=== PATIENT | female | born 1985 | race Caucasian/White ===

== ENCOUNTER 2019-02-03 11:03 | Emergency (ER) | payer MEDICAID, SELFPAY ==
[2019-02-03 11:04] VITALS: BP 102/57; PULSE 82; RESP 16; TEMP 36.8; O2SAT 96; BMI 30.2
--- NOTE | 2019-02-03 11:27 | RAD_ITS ---
STUDY: X-RAY - LEFT FOOT CLINICAL: Female, 33 years old. Pain TECHNIQUE: 3 view(s) of the foot. COMPARISON: None. FINDINGS: There is no evidence of fracture or dislocation. There are no significant degenerative changes. There are no radiodense foreign bodies. RAD/Foot min 3 Views IMPRESSION: No fracture or dislocation. Electronically Signed: Ian Brooks, at 11:43 EDT Tel , Service support ,
--- NOTE | 2019-02-03 11:27 | RAD_ITS ---
STUDY: X-RAY - LEFT ANKLE REASON FOR EXAM: Female, 33 years old. Pain TECHNIQUE: 3 view(s) of the ankle. COMPARISON: None. FINDINGS: There is no evidence of fracture or dislocation. There are no significant degenerative changes. There are no radiodense foreign bodies. RAD/Ankle min 3 Views IMPRESSION: No fracture or dislocation. Electronically Signed: Ian Brooks, at 11:44 EDT Tel , Service support ,
[2019-02-03] MEDS: Naproxen 500 MG Tablet PO (11:59)
--- NOTE | 2019-02-03 12:01 | ED.DCSUM_ITS ---
- ER Visit Summary Date of Service: 02/03/19 Chief Complaint: Left foot and ankle injury History of Present Illness: The patient is a 33 F who tripped and fell yesterday while running. She complains of pain to her left fifth toe and lateral portion of her left ankle. She has not taken anything for pain. Physical Examination: Vital signs unremarkable. Patient sitting upright in bed no acute distress. Left lower extremity examination was mild tenderness on the lateral malleolus of the left ankle. There is mild erythema and edema to the left fifth toe. There is a small scabbed abrasion noted. No sign of infection. She has strong distal pulses. Test Results: Left foot and ankle x-rays reveal no fracture or dislocation. Emergency Department Course and Treatment: Patient is given naproxen for pain and Agapito wrap is provided. Treatment Plan: [] Disposition: Discharge Impression: Left foot and ankle sprain This note was generated with [employer] dictation software. It may contain incorrect words, spelling, and punctuation that were not noted in review of the chart prior to signing ED Disposition - Plan for ED Patient: Disposition: Home or Assisted Living Instructions: ED Sprain Ankle W X Ray, ED Sprain Foot Prescriptions: Naproxen [Naprosyn] 500 mg PO BID PRN PRN #20 tablet PRN Reason: Pain Referrals: Myra Trevino MD [STAFF PHYSICIAN] - As Needed
== END 2019-02-03 12:06 | disposition home or self-care (01) ==
PROVIDERS: Emergency Provider Emergency Medicine
DX: S93.402A Sprain of unspecified ligament of left ankle, initial encounter (principal); S93.602A Unspecified sprain of left foot, initial encounter; W01.0XXA Fall on same level from slipping, tripping and stumbling without subsequent striking against object, initial encounter; Y93.02 Activity, running; Z72.0 Tobacco use; Z87.442 Personal history of urinary calculi
CPT/HCPCS: 73610; 73630; 99283

== ENCOUNTER 2019-03-07 19:59 | Emergency (ER) | payer MEDICAID, SELFPAY ==
[2019-03-07 20:02] VITALS: BP 100/59; PULSE 86; RESP 17; TEMP 36.3; O2SAT 98; BMI 37.7
[2019-03-07 20:59] LABS: Mucous, Urine 0 SEEN /hpf (<or=2+)
--- NOTE | 2019-03-07 21:02 | CT_ITS ---
STUDY: CT ABDOMEN AND PELVIS WITHOUT CONTRAST REASON FOR EXAM: Female, 34 years old. Right flank pain. RADIATION DOSAGE (If Supplied By Facility): CTDIvol = ( 9.49 ) mGy, DLP = ( 438.77 ) mGycm TECHNIQUE: Transaxial images were obtained from the dome of the diaphragm to the symphysis pubis without oral contrast, and without intravenous contrast. Sagittal and coronal images were reconstructed. Individualized dose optimization techniques were used for this CT. COMPARISON: None. FINDINGS: The visualized lung bases are unremarkable. The visualized portions of the heart are within normal limits. Normal liver. The gallbladder is contracted. Normal spleen. Normal pancreas. Normal bilateral adrenal glands. Normal right kidney. There is a punctate nonobstructing left lip of the left kidney measuring 1 to 2 mm. Normal visualized stomach. Normal small intestine. Normal colon. There is non-visualization of the appendix. Normal abdominal aorta. Normal inferior vena cava. Normal retroperitoneum. Normal urinary bladder. Normal abdominal wall. Normal osseous structures. CT/Abdomen/Pelvis without Cont IMPRESSION: No evidence of acute intra-abdominal process or focal inflammation. Left nonobstructive renal punctate nephroliths with otherwise no evidence of ureteral stone or hydronephrosis. Electronically Signed: Juancho Malone DO at 22:30 EDT , Service support ,
[2019-03-07 21:05] LABS: Color, Urine Yellow (Yellow); Glucose, Dipstick Normal (Normal); Ketone-Dipstick Negative (Negative); Leukocyte Esterase-Dipstick Negative /ul (Negative); Nitrite-Dipstick Negative (Negative); Occult Blood-Urine 150 /ul (Negative); Protein-Dipstick Negative (Negative); Urine Bilirubin Dipstick Negative (Negative); Urine Clarity Sl. Cloudy (Clear); Urine Urobilinogen Normal (Normal)
[2019-03-07 21:13] LABS: Amorphous Sediment 1+; Bacteria 2+ /hpf (None Seen); Red Blood Cells-Urine 0-5 SEEN /hpf (0-5); Squamous Epithelial Cells - UA 0-5 SEEN /hpf (5-10); White Blood Cells 0-5 SEEN /hpf (0-5)
[2019-03-07] MEDS: 0.9% Normal Saline 1,000 ML 250 ML IV (21:25)
[2019-03-07] MEDS: Ondansetron 4 MG/2 ML Vial IV (21:29)
[2019-03-07] MEDS: Ketorolac 15 MG/ML Vial IV (21:33)
[2019-03-07 21:45] LABS: Anion Gap 6 (5-15); BUN 13 mg/dL (7-18); BUN/Creat Ratio 19.8 RATIO (10-20); Calcium,Total 8.3 mg/dL (8.5-10.1); Chloride 107 mmol/L (98-107); Creatinine, Serum 0.66 mg/dL (0.55-1.02); EST Glomerular Filtration Rate 111 mL/min (>60); Est Glom Filt Rate - Afr Amer 134 mL/min (>60); Estimated Creatinine Clearance 135.89 ml/min; Glucose 94 mg/dL (74-106); Potassium 3.6 mmol/L (3.5-5.1); Sodium Level 140 mmol/L (136-145)
--- NOTE | 2019-03-07 22:19 | ED.VIS.GEN ---
History of Present Illness Chief Complaint: Flank Pain Informant: Patient Onset: Days - Onset Tuesday Context: Sudden Onset Timing: Continuous, Waxes and wanes Quality: Cramping labor like Location: Right flank radiating to right groin Current Severity: Moderate Maximum Severity: Severe Worsened by: Nothing Relieved by: Nothing Associated Symptoms: Urgency, hematuria and nausea Narrative: Patient is a 34-year-old woman status post hysterectomy who presents with right flank pain that radiates to the right groin she reports urgency and hematuria. She denies dysuria. She does report nausea. She has remote history of ureterolithiasis. She denies fever, chills or night sweats. There is no history of trauma. Prior similar symptoms: Yes - Ureterolithiasis 2014 Recent Illness/Hospitalization: No - Past Medical History (1) History of kidney stones Status: Acute Past Medical History - Allergies and Home Meds Allergies/Adverse Reactions: Allergies hydrocodone bitartrate [From [place]] Allergy (Verified 03/07/19 20:01) Hives Primary Care Physician: Care Physician,No Primary [Primary Care Provider] - Surgical History: hysterectomy Lives: With Family Smoking Status: Current every day smoker Alcohol: Rare Drugs: None Review of Systems General: Denies: Chills, Fever, Malaise, Sweats ENT: Denies: Bilateral ear pain, Rhinorrhea, Sore throat Cardiovascular: Denies: Chest pain, Palpitations Respiratory: Denies: Dyspnea, Cough, Dyspnea on exertion Gastrointestinal: Reports: Abdominal pain, Nausea. Denies: Vomiting, Diarrhea, Constipation, Melena, Hematochezia Genitourinary: Reports: Hematuria. Denies: Dysuria, Frequency Musculoskeletal: Reports: Back pain. Denies: Myalgias, Arthralgias, Neck pain, Swelling, Extremity Pain Skin: Denies: Rash, Wounds Neurological: Denies: Headache, Parasthesia, Numbness Hematologic: Denies: Easy bruising, Easy bleeding Allergy: Reports: Uticaria - Caused by [place] Physical Exam Vital Signs/Narrative: Vital Signs Temp Pulse Resp BP Pulse Ox 03/07/19 20:02 97.3 F L 86 17 100/59 L 98 Inital Vital Signs reviewed: Yes General: Well nourished, Well developed, No Acute Distress, - - She does appear uncomfortable. Head: Normocephalic, Atraumatic Eyes: Perrl, EOMI. Negative for: Pale conjunctiva, Scleral icterus, - ENT: Moist mucous membranes, No rhinorrhea Neck: Supple, Nontender, No lymphadenopathy, No JVD Cardiovascular: Regular rate, Regular rhythm, No murmurs, Normal S1, Normal S2 Respiratory: No distress, CTA bilaterally, Chest nontender Abdomen: Soft, Nontender, Nondistended, Normal bowel sounds Back: Nontender, Normal Inspection. Negative for: CVA tenderness Extremities: Nontender, No edema Skin: Normal color, No rash, No Trauma. Negative for: Cyanosis, Diaphoresis, Jaundice Neurological: Alert, Oriented x3, Cranial nerves II-XII grossly intact, Normal Strength, Normal Sensation Psychological: Normal affect, Normal Mood Diagnostic/Tx/Re-eval Impressions Abdomen/Pelvis CT 03/07/19 21:02 IMPRESSION: No evidence of acute intra-abdominal process or focal inflammation. Left nonobstructive renal punctate nephroliths with otherwise no evidence of ureteral stone or hydronephrosis. Electronically Signed: Juancho Malone DO at 22:30 EDT , Service support , 03/07/19 21:02 Abdomen/Pelvis without Cont [CT] Stat Laboratory Results 03/07/19 03/07/19 20:10 21:25 Sodium 140 Potassium 3.6 Chloride 107 Carbon Dioxide 27.0 Anion Gap 6 BUN 13 Creatinine 0.66 Estim Creat Clear Calc 135.89 Est GFR (MDRD) Af Amer 134 Est GFR (MDRD) Non-Af 111 BUN/Creatinine Ratio 19.8 Glucose 94 Calcium 8.3 L Urine Color Yellow Urine Clarity Sl. Cloudy Urine pH 8.0 Ur Specific [place] 1.010 Urine Protein Negative Urine Glucose (UA) Normal Urine Ketones Negative Urine Occult Blood 150 H Urine Nitrite Negative Urine Bilirubin Negative Urine Urobilinogen Normal Ur Leukocyte Esterase Negative Urine RBC 0-5 SEEN Urine WBC 0-5 SEEN Ur Squamous Epith Cells 0-5 SEEN Amorphous Sediment 1+ Urine Bacteria 2+ Urine Mucus 0 SEEN - Medical Decision Making With abrupt onset of colicky right flank pain radiating to the right groin and prior history of urolithiasis will evaluate for obstructing stone. And differential need to exclude urinary tract infection/pyelonephritis, flank pain of unknown etiology, possible GI pathology. Patient was medicated with 50 mg Toradol IV push and 4 mill grams of Zofran IV push. CT flank was ordered as well as UA. Nurse ordered Emmanuel test, which was not indicated since patient is status post hysterectomy. There is a nonobstructing left renal stone. There is no evidence of ureterolithiasis with obstruction. Patient does have evidence of infection. Will treat with dose of Rocephin and discharged with prescription for antibiotic. We will send culture. ED Disposition - Plan for ED Patient: Disposition: Home or Assisted Living Diagnosis: Pyelonephritis, Nonobstructing left kidney stone Instructions: PYELONEPHRITIS, Female (Adult) Prescriptions: Ciprofloxacin [Cipro] 500 mg PO BID #14 tab Transmission Status: Pending to [facility] Referrals: Care Physician,No Primary [Primary Care Provider] - 3-5 Days if not improving Additional Instructions: Patient was instructed to follow-up with her primary care physician. The name of your doctor is located on your insurance card. Your prescription was electronically transmitted to [facility] located on [facility]
[2019-03-07] MEDS: Ceftriaxone 1 GM/50 ML BAG IV (23:04)
== END 2019-03-07 23:42 | disposition home or self-care (01) ==
PROVIDERS: Emergency Provider Emergency Medicine
DX: N12 Tubulo-interstitial nephritis, not specified as acute or chronic (principal); N20.0 Calculus of kidney; Z90.710 Acquired absence of both cervix and uterus; Z88.5 Allergy status to narcotic agent; F17.200 Nicotine dependence, unspecified, uncomplicated; Z87.442 Personal history of urinary calculi
CPT/HCPCS: 74176; 80048; 81001; 87086; 87088; 96361; 96365; 96375; 96376; 99283; J7030; J7050; A4216; J2405

== ENCOUNTER 2019-03-12 09:56 | Emergency (ER) | payer MEDICAID, SELFPAY ==
[2019-03-12 09:57] VITALS: BP 118/71; PULSE 89; RESP 16; TEMP 37.2; O2SAT 97; BMI 34.9
[2019-03-12] MEDS: 0.9% Normal Saline 1,000 ML 1000 ML IV (10:56)
[2019-03-12] MEDS: Morphine 4 MG/ML Syringe IV (10:57)
[2019-03-12] MEDS: Ketorolac 15 MG/ML Vial IV (10:57)
[2019-03-12] MEDS: Ondansetron 4 MG/2 ML Vial IV (10:57)
[2019-03-12 11:09] LABS: Absolute Lymphocyte Count 2.17 X10^3/ul (0.83-4.51); Absolute Neutrophil Count 7.9 X10^3/uL (2.0-7.7); Basophil# 0.02 X10^3/uL; Basophil% 0.2 % (0-1); Eosinophil# 0.18 X10^3/uL; Eosinophils% 1.6 % (0-5); Hematocrit 43.3 % (37-47); Hemoglobin 14.4 g/dl (12.0-15.0); Lymphocyte # 2.17 X10^3/ul (4.0); Mean Corp Hgb Conc 33.3 g/gl (32-36); Mean Corpuscular Hgb 28.2 pg (27.0-32.0); Mean Corpuscular Volume 84.7 fL (81-99); Mean Platelet Vol. 10.6 fl (6.2-12.0); Monocyte# 1.17 X10^3/uL; Monocyte% 10.3 % (0-10); Neutrophil # 7.85 X10^3/uL (2.7-7.7); Neutrophil % 68.7 % (47-70); Platelet Count 241 K/mm3 (150-450); RBC Distribution Width CV 12.9 % (11.6-14.6); RBC Distribution Width SD 39.7 fl (35.1-43.9); Red Blood Count 5.11 M/mm3 (4.2-5.4); White Blood Count 11.4 K/mm3 (4.4-11.0)
[2019-03-12 11:10] LABS: POSITIVE COUNT NO; POSITIVE DIFFERENTIAL NO; POSITIVE MORPHOLOGY NO
[2019-03-12 11:24] LABS: AST(SGOT) 23 U/L (15-37); Alanine Aminotransfer ALT/SGPT 18 U/L (13-56); Albumin, Serum 3.3 g/dL (3.2-5.0); Alkaline Phosphatase 38 U/L (45-117); Anion Gap 7 (5-15); BUN 19 mg/dL (7-18); BUN/Creat Ratio 14.3 RATIO (10-20); Bilirubin, Direct 0.14 mg/dL (0.00-0.30); Calcium,Total 8.9 mg/dL (8.5-10.1); Chloride 108 mmol/L (98-107); Creatinine, Serum 1.33 mg/dL (0.55-1.02); EST Glomerular Filtration Rate 49 mL/min (>60); Est Glom Filt Rate - Afr Amer 59 mL/min (>60); Estimated Creatinine Clearance 62.47 ml/min; Globulin 3.4 g/dL (2.2-4.2); Glucose 94 mg/dL (74-106); Lipase 80 U/L (73-393); Protein, Total 6.7 g/dL (6.4-8.2); Sodium Level 141 mmol/L (136-145)
[2019-03-12 11:43] LABS: Bacteria 0 SEEN /hpf (None Seen); Mucous, Urine 0 SEEN /hpf (<or=2+); White Blood Cells 0 SEEN /hpf (0-5)
[2019-03-12 11:45] VITALS: BP 93/53; PULSE 68; RESP 14; O2SAT 95
[2019-03-12 11:50] LABS: Color, Urine Yellow (Yellow); Glucose, Dipstick Normal (Normal); Ketone-Dipstick Negative (Negative); Leukocyte Esterase-Dipstick Negative /ul (Negative); Nitrite-Dipstick Negative (Negative); Occult Blood-Urine 150 /ul (Negative); Protein-Dipstick Negative (Negative); Urine Bilirubin Dipstick Negative (Negative); Urine Clarity Clear (Clear); Urine Urobilinogen Normal (Normal); Urine pH 6.5 (5.0 - 8.0)
[2019-03-12 12:00] LABS: Red Blood Cells-Urine 0-5 SEEN /hpf (0-5); Squamous Epithelial Cells - UA 0-5 SEEN /hpf (5-10)
[2019-03-12 12:36] VITALS: BP 87/60; PULSE 54; RESP 12; O2SAT 98
[2019-03-12] MEDS: 0.9% Normal Saline 1,000 ML 999 ML IV (12:49)
[2019-03-12 14:02] VITALS: BP 91/63; PULSE 59; RESP 14; O2SAT 99
--- NOTE | 2019-03-12 14:30 | ED.VISSUMM ---
- ER Visit Summary Date of Service: 03/12/19 Chief Complaint: Flank pain History of Present Illness: The patient is a 34 F with right flank pain, initially seen in the ER on March 07. Reportedly a right renal stone was noted and mild infection was noted in her urine. She was discharged with a prescription for Cipro. Patient states she has continued pain that now radiates across her upper abdomen. She does have mild dysuria but no hematuria. She states her temperature was 102 last night. She is been having nausea and vomiting over the past couple days. Physical Examination: Vital signs are unremarkable. She is afebrile. Patient sitting upright in bed no acute distress. She is nontoxic appearing. Head and neck examination is normal. Heart is regular rate and rhythm. Lung sounds are clear pedal and abdomen is soft with mild right upper quadrant and left lower quadrant tenderness. No guarding or rebound. Active bowel sounds are noted. Test Results: CBC was white count 11.4 with normal differential. Chemistry studies reveal BUN of 19 and a creatinine 1.33. LFTs reveal no acute findings and lipase is normal. Urinalysis shows 0-5 RBCs and 0-5 epithelials. No bacteria. Emergency Department Course and Treatment: Patient was given morphine, Zofran, Toradol, and IV fluids. I did review her CT scan from her recent visit. On repeat evaluation her pain is improved but her blood pressure and heart rate have dropped slightly. She was given an additional 1 L IV fluid bolus. At this time symptoms are improved and vital signs are stable. She will be discharged with a prescription for Percocet and Zofran. Treatment Plan: [] Disposition: Discharge Impression: Flank pain This note was generated with [employer] dictation software. It may contain incorrect words, spelling, and punctuation that were not noted in review of the chart prior to signing ED Disposition - Plan for ED Patient: Disposition: Home or Assisted Living Instructions: FLANK PAIN, Uncertain Cause Prescriptions: Oxycodone HCl/Acetaminophen [Percocet 5/325] 1 tab PO Q6H PRN PRN 3 Days #12 tab PRN Reason: Pain Prescription Printed Ondansetron [Zofran Odt] 4 mg PO Q8H PRN PRN #10 tab PRN Reason: Nausea Prescription Printed Referrals: Myra Trevino MD [STAFF PHYSICIAN] - As Needed
[2019-03-12 14:40] VITALS: BP 118/75; PULSE 62; RESP 15; O2SAT 98
== END 2019-03-12 14:41 | disposition home or self-care (01) ==
PROVIDERS: Emergency Provider Emergency Medicine
DX: R10.9 Unspecified abdominal pain (principal); R30.0 Dysuria; R11.2 Nausea with vomiting, unspecified; R50.9 Fever, unspecified; Z87.442 Personal history of urinary calculi; Z72.0 Tobacco use
CPT/HCPCS: 80048; 80076; 81001; 83690; 85025; 96361; 96374; 96375; 99283; J7030; A4216; J2405

== ENCOUNTER 2019-04-06 20:50 | Emergency (ER) | payer MEDICAID, SELFPAY ==
[2019-04-06 20:50] VITALS: BP 98/64; PULSE 84; RESP 14; TEMP 36.6; O2SAT 97; BMI 33.3
--- NOTE | 2019-04-06 21:28 | ED.DCSUM_ITS ---
- ER Visit Summary Date of Service: 04/06/19 Chief Complaint: Multiple complaints History of Present Illness: The patient is a 34 F patient reports cough and cold symptoms that started yesterday. She also had a rash develop. She reports red eyes, congestion. Denies fever or cough. The rash started on her left arm and progressed up to her left neck. Her daughter was diagnosed with shingles. She said the rash is painful. Denies any significant medical history or immune compromise. Physical Examination: Afebrile and vital signs are unremarkable. Patient has mild by lateral conjunctivitis and nasal congestion. Oropharynx unremarkable. No lymphadenopathy. No meningeal findings. Ears unremarkable. Heart regular rate. No respiratory distress. Patient has a rash to her left upper arm medial side and it extends to her left trapezius region. This appears to be early v esicles. She is neurovascular intact distally. Test Results: None performed Emergency Department Course and Treatment: Patient likely has a viral illness. Her daughter had shingles. I am concerned she may have early development of shingles. Patient does not have fevers or the characteristic distribution and pattern of measles. Patient will be treated with naproxen, acyclovir, prednisone. Afrin for 5 days. Follow-up with primary care. Return right away for any new or worsening issues. Treatment Plan: As above Disposition: Discharge Impression: 1. Viral illness This note was generated with [employer] dictation software. It may contain incorrect words, spelling, and punctuation that were not noted in review of the chart prior to signing ED Disposition - Plan for ED Patient: Referrals: Care Physician,No Primary [Primary Care Provider] -
[2019-04-06 21:30] VITALS: O2SAT 97
--- NOTE | 2019-04-06 21:31 | ED.DEP ---
ED Disposition - Plan for ED Patient: Instructions: Shingles (Herpes Zoster) Prescriptions: Naproxen [Naprosyn] 500 mg PO BID PRN #20 tab Prescription Printed Prednisone 10 mg PO UD #33 tab Prescription Printed Acyclovir [Zovirax] 800 mg PO 5X/DAY #35 tab Prescription Printed
[2019-04-06] MEDS: predniSONE 20 MG Tablet 40 MG PO (21:37)
[2019-04-06] MEDS: Naproxen 500 MG Tablet PO (21:37)
[2019-04-06] MEDS: Oxymetazoline 0.05% 1 SPRAY SPRAY.BTL 2 SPRAY NASAL (21:37)
[2019-04-06] MEDS: Acyclovir 800 MG Tablet PO (21:55)
== END 2019-04-06 21:58 | disposition home or self-care (01) ==
LOC: ED 21:35
PROVIDERS: Emergency Provider Emergency Medicine
DX: B34.9 Viral infection, unspecified (principal); R21 Rash and other nonspecific skin eruption; Z72.0 Tobacco use
CPT/HCPCS: 99283

== ENCOUNTER 2019-06-04 11:26 | Emergency (ER) | payer MEDICAID, SELFPAY ==
[2019-06-04 11:27] VITALS: BP 110/67; PULSE 102; RESP 16; TEMP 36.3; O2SAT 95; BMI 28.3
[2019-06-04 11:51] LABS: Bacteria 0 SEEN /hpf (None Seen); Mucous, Urine 0 SEEN /hpf (<or=2+); White Blood Cells 0 SEEN /hpf (0-5)
[2019-06-04 11:52] LABS: Color, Urine Yellow (Yellow); Glucose, Dipstick Normal (Normal); Ketone-Dipstick Negative (Negative); Leukocyte Esterase-Dipstick Negative /ul (Negative); Nitrite-Dipstick Negative (Negative); Occult Blood-Urine 250 /ul (Negative); Protein-Dipstick Negative (Negative); Urine Bilirubin Dipstick Negative (Negative); Urine Clarity Sl. Cloudy (Clear); Urine Urobilinogen Normal (Normal)
[2019-06-04 11:59] LABS: Red Blood Cells-Urine 25-50 SEEN /hpf (0-5); Squamous Epithelial Cells - UA 0-5 SEEN /hpf (5-10)
--- NOTE | 2019-06-04 12:50 | ED.DCSUM_ITS ---
- ER Visit Summary Date of Service: 06/04/19 Chief Complaint: [Hematuria] History of Present Illness: The patient is a 34 F [presents to the emergency department with complaint of hematuria this morning. Patient states that she has chronic flank and back pain but she is had worsening pain to her lower back of her last 3 days bilaterally. Patient has chronic dysuria and she states that she has been having dysuria. She had a fever up to 102 last night. She complains of intermittent nausea and vomiting. She does have a history of kidney stones.] Physical Examination: [HEENT-PERRLA, EOMI. Cranial nerves II through XII grossly intact. TMs clear. Mucous membranes moist. No adenopathy. Cardiovascular-regular rate and rhythm without murmur or ectopy Lungs-clear to auscultation, chest wall stable without crepitus or subcu emphysema Abdomen-normoactive bowel sounds, soft. Patient has some mild diffuse tenderness over the suprapubic region. There is no rebound, rigidity, or perineal signs. No real tenderness over the right lower quadrant. Extremities-intact ?4, normal range of motion, normal pulses, atraumatic] Test Results: [Urinalysis obtained showed 25-50 RBCs without signs of infection.] Emergency Department Course and Treatment: [Given that patient had a CT scan of her abdomen pelvis in February that showed a small 1 to 2 mm punctate stone I believe it was in the right kidney I did not feel any further imaging was indicated at this time. Is possible patient may be passing a kidney stone as she states she is passed multiple times in the past. Patient states she has had multiple CT scans of her abdomen pelvis and would prefer not to have any further imaging at this time. I am in agreement.] Treatment Plan: [She will be given urine strainers and a prescription for pain medicine and referral to urology for follow-up.] Disposition: [Discharged home in stable condition] Impression: [Hematuria Flank pain This note was generated with [employer] dictation software. It may contain incorrect words, spelling, and punctuation that were not noted in review of the chart prior to signing ED Disposition - Plan for ED Patient: Referrals: Care Physician,No Primary [Primary Care Provider] -
--- NOTE | 2019-06-04 12:53 | ED.DEP ---
ED Disposition - Plan for ED Patient: Instructions: Hematuria, FLANK PAIN, Uncertain Cause Prescriptions: Naproxen [Naprosyn] 500 mg PO BID PRN #20 tab Prescription Printed Oxycodone HCl/Acetaminophen [Percocet 5/325] 1 tab PO Q6H PRN PRN 3 Days #12 tab PRN Reason: Pain Prescription Printed Referrals: Care Physician,No Primary [Primary Care Provider] - Flo Bravo MD [STAFF PHYSICIAN] - 3-5 Days
== END 2019-06-04 13:01 | disposition home or self-care (01) ==
LOC: ED 12:01
PROVIDERS: Emergency Provider Emergency Medicine
DX: R31.9 Hematuria, unspecified (principal); R10.9 Unspecified abdominal pain; Z87.442 Personal history of urinary calculi; R30.0 Dysuria; M54.5 Low back pain; R11.2 Nausea with vomiting, unspecified; R50.9 Fever, unspecified
CPT/HCPCS: 81001; 99282

== ENCOUNTER 2019-08-15 19:08 | Emergency (ER) | payer MEDICAID, SELFPAY ==
[2019-08-15 19:09] VITALS: BP 121/74; PULSE 113; RESP 20; TEMP 36; O2SAT 95; BMI 32.5
--- NOTE | 2019-08-15 19:37 | ED.DCSUM_ITS ---
- ER Visit Summary Date of Service: 08/15/19 Chief Complaint: Back pain, URI History of Present Illness: The patient is a 34 F who has back pain as well as URI-like symptoms. These of been ongoing for 3 days. She reports sharp pain in the left thoracic area. Nothing makes it better but movement makes it worse. She denies any numbness or tingling in her arms or legs. She has also had a cough stuffy nose, runny nose. She has tried [id number] antiseptin, [place] and [place] at home without any relief. She denies any fevers. She is a smoker. Physical Examination: Vital signs reviewed. HEENT exam reveals moist mucous membranes. She has swollen turbinates in the nose bilaterally. TMs clear. Heart is regular rate and rhythm. Lungs have wheezing bilaterally. Abdomen is soft and nontender. Back is nontender in the thoracic region. Skin has no rashes. Her neurologic exam is normal Test Results: None performed Emergency Department Course and Treatment: Patient has a URI with a thoracic strain. I do not feel she requires any imaging studies of the back or chest. I will give her an albuterol inhaler to take home. I will also give her Mucinex D. She will follow-up with her PCP Treatment Plan: [] Disposition: Discharge Impression: Thoracic strain, URI This note was generated with [employer] dictation software. It may contain incorrect words, spelling, and punctuation that were not noted in review of the chart prior to signing ED Disposition - Plan for ED Patient: Referrals: Care Physician,No Primary [Primary Care Provider] -
--- NOTE | 2019-08-15 19:39 | ED.DEP ---
ED Disposition - Plan for ED Patient: Disposition: Home or Assisted Living Instructions: BRONCHITIS, No Antibiotic (Adult) Prescriptions: Guaifenesin/Pseudoephedrne HCl [Mucus Relief D ER 600-60 mg Tb] 1 ea PO BID #14 tab.er.12h Transmission Status: Pending to [facility] Naproxen [Naprosyn] 500 mg PO BID PRN #20 tab Transmission Status: Pending to [facility] Referrals: Care Physician,No Primary [Primary Care Provider] - Additional Instructions: Your prescriptions were electronically transferred to [facility]
== END 2019-08-15 19:51 | disposition home or self-care (01) ==
PROVIDERS: Emergency Provider Emergency Medicine
DX: S29.012A Strain of muscle and tendon of back wall of thorax, initial encounter (principal); X58.XXXA Exposure to other specified factors, initial encounter; J06.9 Acute upper respiratory infection, unspecified; F17.200 Nicotine dependence, unspecified, uncomplicated; Z87.442 Personal history of urinary calculi
CPT/HCPCS: 99282

== ENCOUNTER 2019-08-18 13:55 | Emergency (ER) | payer MEDICAID, SELFPAY ==
[2019-08-18 13:56] VITALS: BP 109/72; PULSE 103; RESP 20; TEMP 36.5; O2SAT 95; BMI 39.5
[2019-08-18 14:34] VITALS: PULSE 98; RESP 20; TEMP 36.7; O2SAT 96
--- NOTE | 2019-08-18 14:35 | RAD_ITS ---
STUDY: X-RAY CHEST REASON FOR EXAM: Female, 34 years old. Persistent cough TECHNIQUE: PA and lateral views of the chest. COMPARISON: None. FINDINGS: The lungs are clear and expanded. There is no demonstrated pleural abnormality. Normal size heart. Normal mediastinum and анна. Normal visualized pulmonary arteries. Normal visualized aortic arch and descending thoracic aorta. Normal visualized thoracic spine. Normal visualized ribs, clavicles, and shoulders. There is no demonstrated abnormality of the visualized soft tissue structures of the upper abdomen. RAD/Chest PA and Lateral IMPRESSION: Normal x-ray examination of the chest. Electronically Signed: Cheng Varela DO at 15:27 EST Tel , Service support ,
[2019-08-18] MEDS: predniSONE 20 MG Tablet 40 MG PO (15:01)
--- NOTE | 2019-08-18 15:39 | ED.DCSUM_ITS ---
- ER Visit Summary Date of Service: 08/18/19 Chief Complaint: [Cough and shortness of breath] History of Present Illness: The patient is a 34 F [presents to the emergency department with 5 to 6-day history of cough. Patient had fever at home up to 102. Patient coughing up some yellow phlegm. Patient states she was seen in the emergency department 3 days ago and diagnosed with bronchitis and was started on Mucinex and an inhaler. Patient today felt very short of breath and lightheaded at times. She comes in for repeat evaluation. Patient denies any chest pain.] Physical Examination: [HEENT-PERRLA, EOMI. Cranial nerves II through XII grossly intact. TMs clear. Mucous membranes moist. No adenopathy. Cardiovascular-regular rate and rhythm without murmur or ectopy Lungs-somewhat diminished breath sounds bilaterally with expiratory wheezes. Patient has mild tachypnea. No accessory muscle use or retractions. Abdomen-normoactive bowel sounds, soft, nontender, no rebound or rigidity, no peritoneal signs. Extremities-intact ?4, normal range of motion, normal pulses, atraumatic] Test Results: [Chest x-ray obtained was normal.] Emergency Department Course and Treatment: [She was given a DuoNeb aerosol as well as prednisone 40 mg p.o. Patient felt significantly improved.] Doxycycline 100 mg p.o. given. Treatment Plan: [Will be started on prednisone and doxycycline.] Disposition: [Discharged home in stable condition. Patient advised to return if increased difficulty breathing or conditions worsen anyway. Patient advised to follow-up with primary care physician within next 3 to 5 days.] Impression: [Asthmatic bronchitis] This note was generated with [employer] dictation software. It may contain incorrect words, spelling, and punctuation that were not noted in review of the chart prior to signing ED Disposition - Plan for ED Patient: Referrals: Care Physician,No Primary [Primary Care Provider] -
--- NOTE | 2019-08-18 15:41 | ED.DEP ---
ED Disposition - Plan for ED Patient: Instructions: BRONCHITIS, Antiobiotic Treatment (Adult), BRONCHITIS with Wheezing (Adult) Prescriptions: Prednisone [Deltasone] 20 mg PO BID #10 tab Prescription Printed Doxycycline 100 mg PO BID #20 cap Prescription Printed Referrals: Care Physician,No Primary [Primary Care Provider] - Lino Beck III, MD [STAFF PHYSICIAN] - 3-5 Days
[2019-08-18] MEDS: Ipratropium/Albuterol Sulfate 3 ML AMPUL.NEB INHALATION (15:44)
[2019-08-18 15:46] VITALS: PULSE 98; RESP 18
[2019-08-18 15:59] VITALS: PULSE 96; RESP 18; TEMP 36.6
== END 2019-08-18 16:04 | disposition home or self-care (01) ==
LOC: ED 14:34
PROVIDERS: Emergency Provider Emergency Medicine
DX: J45.909 Unspecified asthma, uncomplicated (principal)
CPT/HCPCS: 71046; 94640; 99283

== ENCOUNTER 2019-08-20 14:28 | Emergency (ER) | payer MEDICAID, SELFPAY ==
[2019-08-20 14:30] VITALS: BP 126/80; PULSE 107; RESP 16; TEMP 36.6; O2SAT 94; BMI 39.7
--- NOTE | 2019-08-20 15:40 | ED.VIS.FEGU ---
History of Present Illness Chief Complaint: Female C/O Informant: Patient Pain: Pelvic Pain Onset: Yesterday - night Context: Gradual Onset Timing: Continuous Quality: - - pressure Location: Suprapubic Current Severity: Moderate Maximum Severity: Moderate Worsened by: - - nothing Relieved by: - - nothing, including the last time she urinated 2200 last night Issue: Vaginal bleeding Onset: Yesterday - night Timing: Intermittent Current Severity: Mild Maximum Severity: Mild Narrative: Patient had a remote hysterectomy. She states she had some pelvic pressure that started yesterday evening, followed by the inability to urinate all day today, her last bowel movement yesterday morning and seemed normal, she feels like she needs to go now but cannot. Pressure has worsened throughout the day. She had vaginal bleeding that started last night and she has the sensation that something is in her vagina trying to get out but will not. She has never had all of this happen before. Denies any hematuria or blood in her last bowel movement. Had no dysuria last night when she last urinated. The pelvic pressure did not improve or resolve after urinating. - Past Medical History (1) Kidney stones Status: Chronic Past Medical History - Allergies and Home Meds Allergies/Adverse Reactions: Allergies hydrocodone bitartrate [From [place]] Allergy (Verified 08/20/19 14:30) Hives Primary Care Physician: Care Physician,No Primary [Primary Care Provider] - Surgical History: hysterectomy Smoking Status: Current every day smoker Drugs: None Review of Systems General: Denies: Chills, Fever, Sweats Eyes: Denies: Visual changes - bilaterally, Diplopia ENT: Denies: Bilateral ear pain, Rhinorrhea, Sore throat Cardiovascular: Denies: Chest pain, Palpitations Respiratory: Denies: Dyspnea, Cough, Dyspnea on exertion Gastrointestinal: Reports: Abdominal pain, Constipation. Denies: Nausea, Vomiting, Diarrhea, Melena, Hematochezia Genitourinary: Reports: - - urinary retention. Denies: Dysuria, Hematuria, Frequency Musculoskeletal: Reports: Back pain - low, middle since last night. Denies: Swelling, Extremity Pain Skin: Denies: Rash, Wounds Neurological: Denies: Headache, Weakness, Numbness Physical Exam Vital Signs/Narrative: Vital Signs Temp Pulse Resp BP Pulse Ox 08/20/19 14:30 97.8 F 107 H 16 126/80 H 94 Inital Vital Signs reviewed: Yes General: Well nourished, Well developed Head: Normocephalic, Atraumatic Eyes: Perrl, EOMI ENT: Moist mucous membranes, No rhinorrhea Neck: Supple, Nontender Cardiovascular: Regular rate, Regular rhythm, No murmurs. Negative for: Tachycardia Respiratory: No distress, CTA bilaterally, Chest nontender Abdomen: Soft, Nondistended, Normal bowel sounds, Tender - suprapubic only. Negative for: Guarding, Rebound tenderness Back: Nontender, Normal Inspection. Negative for: CVA tenderness Extremities: Nontender, No edema Skin: Normal color, No rash, No Trauma Neurological: Alert, Oriented x3, Cranial nerves II-XII grossly intact, Normal Strength, Normal Sensation Psychological: Normal affect, Normal Mood Diagnostic/Tx/Re-eval Laboratory Tests 08/20/19 Range/Units 16:00 Urine Color Yellow (Yellow) Urine Clarity Clear (Clear) Urine pH 6.0 (5.0 - 8.0) Ur Specific [place] 1.020 (1.002-1.030) Urine Protein 30 H (Negative) mg/dl Urine Glucose (UA) Normal (Normal) mg/dl Urine Ketones Negative (Negative) mg/dl Urine Occult Blood 250 H (Negative) /ul Urine Nitrite Negative (Negative) Urine Bilirubin Negative (Negative) mg/dL Urine Urobilinogen 1 H (Normal) mg/dl Ur Leukocyte Esterase 25 H (Negative) /ul Urine RBC 25-50 SEEN (0-5) /hpf Urine WBC 0-5 SEEN (0-5) /hpf Ur Squamous Epith Cells 0-5 SEEN (5-10) /hpf Urine Bacteria 0 SEEN (None Seen) /hpf Urine Mucus RARE (<or=2+) /hpf - Medical Decision/Diagnostic Studies Pelvic exam was performed. Speculum exam is unremarkable. There is a trace amount of normal/physiologic-appearing discharge present within the vaginal vault, I was able to insert speculum all the way to the cuff and there is no sign of any blood or evidence of injury, laceration, or other abnormality. She was able to urinate on her own prior to this and a bladder scan performed at the bedside showed about 100 cc of urine. She states she does not feel like she needs to have a bowel movement right now and is well-appearing. She has no CVA tenderness. Her urinalysis showed microscopic hematuria, but no sign of infection. I think she is stable to be discharged home and follow-up, preferably with uro-senior commissions analyst. I do not have a pelvic bed here or the ability to perform a reliable pelvic exam to rule out things like bladder prolapse, rectal prolapse, etc. I think she should follow-up for another exam, and I discussed with her the possibility that she has a kidney stone causing her discomfort. I offered her some pain medication but she declines and states she is okay to go home without it. We did give her strainers to use at home in case she passes when then she knows. She is comfortable with this overall plan. She does not have a senior commissions analyst in the area. ED Disposition - Plan for ED Patient: Disposition: Home or Assisted Living Diagnosis: Pelvic pain, Microscopic hematuria Instructions: PELVIC PAIN, Unknown Cause Referrals: Latha Wagoner CNM [Certified Nurse Aquatic Habitat Biologist] - (call for appt)
[2019-08-20 16:07] LABS: Bacteria 0 SEEN /hpf (None Seen)
[2019-08-20 16:22] LABS: Glucose, Dipstick Normal (Normal); Ketone-Dipstick Negative (Negative); Leukocyte Esterase-Dipstick 25 /ul (Negative); Nitrite-Dipstick Negative (Negative); Occult Blood-Urine 250 /ul (Negative); Protein-Dipstick 30 mg/dl (Negative); Urine Bilirubin Dipstick Negative (Negative); Urine Urobilinogen 1 mg/dl (Normal)
[2019-08-20 16:23] LABS: Color, Urine Yellow (Yellow); Urine Clarity Clear (Clear)
[2019-08-20 16:24] LABS: Mucous, Urine RARE /hpf (<or=2+); Red Blood Cells-Urine 25-50 SEEN /hpf (0-5); Squamous Epithelial Cells - UA 0-5 SEEN /hpf (5-10); White Blood Cells 0-5 SEEN /hpf (0-5)
--- NOTE | 2019-08-20 17:34 | ED.RN ---
pt upset about not getting any answers to her concerns. pt upset that she was here for 3 hours to get referred to another
== END 2019-08-20 17:34 | disposition home or self-care (01) ==
PROVIDERS: Emergency Provider Emergency Medicine
DX: R10.2 Pelvic and perineal pain (principal); R31.29 Other microscopic hematuria; R33.9 Retention of urine, unspecified; K59.00 Constipation, unspecified; M54.5 Low back pain; Z87.442 Personal history of urinary calculi; F17.200 Nicotine dependence, unspecified, uncomplicated
CPT/HCPCS: 81001; 99282

== ENCOUNTER 2019-12-17 14:53 | Emergency (ER) | payer SELFPAY ==
[2019-12-17 14:53] VITALS: BP 110/69; PULSE 86; RESP 18; TEMP 36.1; O2SAT 99; BMI 34.9
[2019-12-17 15:19] LABS: Mucous, Urine 0 SEEN /hpf (<or=2+); White Blood Cells 0 SEEN /hpf (0-5)
[2019-12-17 15:21] LABS: Color, Urine Yellow (Yellow); Glucose, Dipstick Normal (Normal); Ketone-Dipstick Negative (Negative); Leukocyte Esterase-Dipstick Negative /ul (Negative); Nitrite-Dipstick Negative (Negative); Occult Blood-Urine 250 /ul (Negative); Protein-Dipstick Negative (Negative); Specific Gravity, Urine 1.015 (1.002-1.030); Urine Bilirubin Dipstick Negative (Negative); Urine Clarity Sl. Cloudy (Clear); Urine Urobilinogen Normal (Normal); Urine pH 6.5 (5.0 - 8.0)
[2019-12-17] MEDS: Morphine 4 MG/ML Syringe IM (15:22)
[2019-12-17] MEDS: Ondansetron ODT 4 MG Tablet 8 MG PO (15:22)
[2019-12-17] MEDS: Ketorolac 60 MG/2 ML Vial IM (15:23)
[2019-12-17 15:26] LABS: Internal QC Validated? YES +Cl - CLEAR BKGD; Pregnancy, Urine Negative Negative
[2019-12-17 15:31] LABS: Bacteria RARE /hpf (None Seen); Red Blood Cells-Urine 25-50 SEEN /hpf (0-5); Squamous Epithelial Cells - UA 0-5 SEEN /hpf (5-10)
--- NOTE | 2019-12-17 15:35 | ED.DCSUM_ITS ---
History of Present Illness Chief Complaint: Back Informant: Patient - Abdominal Pain/Flank Pain Onset: Days - 2 Context: Sudden Onset - was mild, now worse Timing: Continuous, Waxes and wanes Quality: Aching Location: Left Flank Current Severity: Moderate Maximum Severity: Severe Worsened by: Nothing Relieved by: Nothing - Nausea/Vomiting/Emesis GI Symptom: Nausea, Vomiting - Diarrhea/Melena/Hematochezia GI Symptom: Negative for: Diarrhea, Melena, Hematochezia Associated Symptoms: Frequency. Negative for: Dysuria, Hematuria, Urgency Narrative: Patient states having symptoms of feel like multiple prior kidney stones. Started in the left upper flank, now it is gone down toward her groin. She has always passed every stone she has had and never needed a procedure/surgery and does not even have a urologist. She states today the pain became worse while she was at work, hence the reason she came. - Past Medical History (1) Kidney stones Status: Chronic Past Medical History - Allergies and Home Meds Allergies/Adverse Reactions: Allergies hydrocodone bitartrate [From [place]] Allergy (Verified 12/17/19 14:56) Nery Primary Care Physician: Care Physician,No Primary [Primary Care Provider] - Surgical History: hysterectomy Smoking Status: Current every day smoker Drugs: None Review of Systems General: Denies: Chills, Fever, Sweats Eyes: Denies: Visual changes - bilaterally, Diplopia ENT: Denies: Rhinorrhea, Sore throat Cardiovascular: Denies: Chest pain, Palpitations Respiratory: Denies: Dyspnea, Cough, Dyspnea on exertion Gastrointestinal: Reports: Abdominal pain, Nausea, Vomiting. Denies: Diarrhea, Melena, Hematochezia Genitourinary: Reports: Frequency. Denies: Dysuria, Hematuria Musculoskeletal: Reports: Back pain. Denies: Extremity Pain Skin: Denies: Rash, Wounds Neurological: Denies: Headache, Weakness, Numbness Physical Exam Vital Signs/Narrative: Vital Signs Temp Pulse Resp BP Pulse Ox 12/17/19 14:53 97 F L 86 18 110/69 99 Inital Vital Signs reviewed: Yes General: Well nourished, Well developed, No Acute Distress Head: Normocephalic, Atraumatic Eyes: Perrl, EOMI ENT: Moist mucous membranes, No rhinorrhea Neck: Supple, Nontender Cardiovascular: Regular rate, Regular rhythm, No murmurs Respiratory: No distress, CTA bilaterally, Chest nontender Abdomen: Soft, Nondistended, Normal bowel sounds, No masses, Tender - Mild left lower quadrant, otherwise nontender. Negative for: Guarding, Rebound tenderness Back: Nontender, Normal Inspection, CVA tenderness - Mild left side only Extremities: Nontender, No edema Skin: Normal color, No rash Neurological: Alert, Oriented x3, Cranial nerves II-XII grossly intact, Normal Strength, Normal Sensation, Normal Gait Psychological: Normal affect, Normal Mood Diagnostic/Tx/Re-eval Laboratory Tests 12/17/19 12/17/19 Range/Units 15:06 15:06 Urine Color Yellow (Yellow) Urine Clarity Sl. Cloudy (Clear) Urine pH 6.5 (5.0 - 8.0) Ur Specific [place] 1.015 (1.002-1.030) Urine Protein Negative (Negative) mg/dl Urine Glucose (UA) Normal (Normal) mg/dl Urine Ketones Negative (Negative) mg/dl Urine Occult Blood 250 H (Negative) /ul Urine Nitrite Negative (Negative) Urine Bilirubin Negative (Negative) mg/dL Urine Urobilinogen Normal (Normal) mg/dl Ur Leukocyte Esterase Negative (Negative) /ul Urine RBC 25-50 SEEN (0-5) /hpf Urine WBC 0 SEEN (0-5) /hpf Ur Squamous Epith Cells 0-5 SEEN (5-10) /hpf Urine Bacteria RARE (None Seen) /hpf Urine Mucus 0 SEEN (<or=2+) /hpf Urine Test Negative Negative - Medical Decision Making Urinalysis shows blood but no signs of infection. Certainly this in conjunction with her history is consistent with urolithiasis. Given that the pain is moved down to her groin I suspect she has a stone small enough to make it to the [facility] and I do not think imaging is necessary. The patient agrees. Her symptoms were well controlled after injections of morphine, Toradol, and an oral Zofran. She is comfortable going home with strainers and expectant management. Given a prescription for analgesics, antiemetic, and referral to urology if needed. ED Disposition - Plan for ED Patient: Disposition: Home or Assisted Living Diagnosis: Ureteral colic, Urolithiasis Instructions: ED Renal Stone w Colic Prescriptions: Oxycodone HCl/Acetaminophen [Percocet 5/325] 1 tablet PO Q6H PRN PRN 3 Days #12 tablet PRN Reason: Pain Transmission Status: Received by [facility] CORNELIUS[address] Ondansetron [Zofran Odt] 8 mg PO Q8H PRN PRN #15 tab PRN Reason: Nausea Transmission Status: Pending to [facility] Referrals: Kierra Nair MD [STAFF PHYSICIAN] - 1 Week if not improving
== END 2019-12-17 16:20 | disposition home or self-care (01) ==
PROVIDERS: Emergency Provider Emergency Medicine
DX: N23 Unspecified renal colic (principal); N20.9 Urinary calculus, unspecified; F17.200 Nicotine dependence, unspecified, uncomplicated; Z87.442 Personal history of urinary calculi; Z88.5 Allergy status to narcotic agent; Z90.710 Acquired absence of both cervix and uterus
CPT/HCPCS: 81001; 81025; 96372; 99283

== ENCOUNTER 2020-01-26 11:54 | Emergency (ER) | payer SELFPAY ==
[2020-01-26 11:56] VITALS: BP 101/67; PULSE 58; RESP 16; TEMP 36.6; O2SAT 100; BMI 31.4
--- NOTE | 2020-01-26 12:11 | ED.DCSUM_ITS ---
- ER Visit Summary Date of Service: 01/26/20 Chief Complaint: Infected tattoo History of Present Illness: The patient is a 34 F with an infected tattoo that started over the last several days when it was placed. Physical Examination: There is a butterfly tattoo on her right calf with s urrounding erythema. No tracking or other abnormal findings. Test Results: None indicated Emergency Department Course and Treatment: Patient is overall low risk and appropriate for outpatient therapy. Will treat with Bactrim and Keflex. Return precautions were discussed. Patient voiced understanding. Treatment Plan: Bactrim and Keflex Disposition: Discharge Impression: Right lower extremity cellulitis This note was generated with [employer] dictation software. It may contain incorrect words, spelling, and punctuation that were not noted in review of the chart prior to signing ED Disposition - Plan for ED Patient: Referrals: Care Physician,No Primary [Primary Care Provider] -
--- NOTE | 2020-01-26 12:14 | ED.DEP ---
ED Disposition - Plan for ED Patient: Instructions: Cellulitis Prescriptions: Smz/Tmp Ds [Bactrim Ds] 1 tab PO BID #14 tab Prescription Printed Cephalexin [Keflex] 500 mg PO Q6 #28 cap Prescription Printed Referrals: Dai Christian [NON-STAFF] -
[2020-01-26 12:26] VITALS: BP 101/67; PULSE 58; RESP 16; TEMP 36.6; O2SAT 100
[2020-01-26] MEDS: Smz/Tmp Ds Tablet 1 TABLET PO (12:30)
[2020-01-26] MEDS: Cephalexin 250 MG Capsule 500 MG PO (12:30)
[2020-01-26 12:34] VITALS: RESP 16
--- NOTE | 2020-01-26 12:35 | ED.RN ---
REVIEWED D/C INSTRUCTIONS, FOLLOW UP CARE, PRESCRIPTIONS, AND S/S THAT WOULD WARRANT A RETURN TO THE ED WITH PT. PT VERBALIZED AN UNDERSTANDING AND DENIES FURTHER QUESTIONS FOR THIS RN. PT SKIN P/W/D, RESP EVEN AND UNLABORED, PT A&O X 3, NO DISTRESS NOTED. PT AMBULATED OUT OF ED, GAIT STEADY.
== END 2020-01-26 12:36 | disposition home or self-care (01) ==
LOC: ED 12:26
PROVIDERS: Emergency Provider Emergency Medicine
DX: L03.115 Cellulitis of right lower limb (principal); L81.8 Other specified disorders of pigmentation
CPT/HCPCS: 99283

== ENCOUNTER 2020-02-23 16:19 | Emergency (ER) | payer SELFPAY ==
[2020-02-23 16:19] VITALS: BP 112/77; PULSE 86; RESP 16; TEMP 36.2; O2SAT 96; BMI 32.8
--- NOTE | 2020-02-23 16:36 | EKG12_ITS ---
Test Reason : Blood Pressure : / mmHG Vent. Rate : 075 BPM Atrial Rate : 075 BPM P-R Int : 142 ms QRS Dur : 072 ms QT Int : 414 ms P-R-T Axes : 060 061 066 degrees QTc Int : 462 ms Normal sinus rhythm Normal ECG Confirmed by COLT LARES, JESUS ([id number]), editor continuity and script IWLDA MICHAELS ([id number]) on 02/25/2020 1:18:22 PM Referred By: STEPHANIA Confirmed By:JESUS GREGORY MD
--- NOTE | 2020-02-23 16:36 | ED.VIS.GEN ---
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 She states that she was making an ice coffee when she got an electric shock sensation in the center of her chest that changed to sharp stabbing constant pain. States she feels it into her back as well. Is worse with touch and some movement. Denies any DVT PE risk factors or history of same. She states that her legs feel normal. She is a smoker. No cough or shortness of breath. Denies any strenuous lifting or activity. Past Medical History - Allergies and Home Meds Allergies/Adverse Reactions: Allergies hydrocodone bitartrate [From [place]] Allergy (Verified 02/23/20 16:19) Hives Primary Care Physician: Care Physician,No Primary [Primary Care Provider] - Surgical History: hysterectomy Smoking Status: Current every day smoker Review of Systems General: Denies: Chills, Fever, Sweats Eyes: Denies: Visual changes - bilaterally, Diplopia ENT: Denies: Rhinorrhea, Sore throat Cardiovascular: Reports: Chest pain. Denies: Palpitations Respiratory: Denies: Dyspnea, Cough, Dyspnea on exertion Gastrointestinal: Denies: Abdominal pain, Nausea, Vomiting, Diarrhea, Melena, Hematochezia Genitourinary: Denies: Dysuria, Hematuria, Frequency Musculoskeletal: Denies: Back pain, Extremity Pain Skin: Denies: Rash, Wounds Neurological: Denies: Headache, Weakness, Numbness Physical Exam Vital Signs/Narrative: Vital Signs Temp Pulse Resp BP Pulse Ox 02/23/20 16:19 97.2 F L 86 16 112/77 96 Inital Vital Signs reviewed: Yes General: Well nourished, Well developed, No Acute Distress Head: Normocephalic, Atraumatic Eyes: Perrl, EOMI ENT: Moist mucous membranes, No rhinorrhea Neck: Supple, Nontender Cardiovascular: Regular rate, Regular rhythm, No murmurs Respiratory: No distress, CTA bilaterally, Chest tenderness - Chest is tenderness to palpation along her manubrium and costochondral border. She also has tenderness in the paraspinal musculature of the thoracic spine. She states that exactly mimics the pain that she is experiencing when I palpate. Abdomen: Soft, Nontender, Nondistended, Normal bowel sounds Back: Nontender, Normal Inspection Extremities: Nontender, No edema Skin: Normal color, No rash Neurological: Alert, Oriented x3, Cranial nerves II-XII grossly intact, Normal Strength, Normal Sensation Psychological: Normal affect, Normal Mood Diagnostic/Tx/Re-eval Laboratory Last Values WBC 12.2 K/mm3 (4.4-11.0) H 02/23/20 16:34 RBC 4.77 M/mm3 (4.2-5.4) 02/23/20 16:34 Hgb 14.0 g/dL (12.0-15.0) 02/23/20 16:34 Hct 42.9 % (37-47) 02/23/20 16:34 MCV 89.9 fL (81-99) 02/23/20 16:34 MCH 29.4 pg (27.0-32.0) 02/23/20 16:34 MCHC 32.6 g/dL (32-36) 02/23/20 16:34 RDW Std Deviation 40.5 fl (35.1-43.9) 02/23/20 16:34 RDW Coeff of Raeann 12.4 % (11.6-14.6) 02/23/20 16:34 Plt Count 277 K/mm3 (150-450) 02/23/20 16:34 MPV 10.6 fl (6.2-12.0) 02/23/20 16:34 Immature Gran % (Auto) 0.300 % (0.0-0.9) 02/23/20 16:34 Neut % (Auto) 50.6 % (47-70) 02/23/20 16:34 Lymph % (Auto) 37.7 % (19-41) 02/23/20 16:34 [place] % (Auto) 5.3 % (0-10) 02/23/20 16:34 Eos % (Auto) 5.6 % (0-5) H 02/23/20 16:34 Baso % (Auto) 0.5 % (0-1) 02/23/20 16:34 Absolute Neuts (auto) 6.2 X10^3/uL (2.0-7.7) 02/23/20 16:34 Absolute Lymphs (auto) 4.61 X10^3/uL (0.83-4.51) H 02/23/20 16:34 Nucleated RBC % 0 % (0-5) 02/23/20 16:34 D-Dimer Quant (PE/DVT) 0.35 FEU/ug/m (0.27-0.49) 02/23/20 16:34 Sodium 141 mmol/L (136-145) 02/23/20 16:34 Potassium 3.6 mmol/L (3.5-5.1) 02/23/20 16:34 Chloride 108 mmol/L (98-107) H 02/23/20 16:34 Carbon Dioxide 25.0 mmol/L (21.0-32.0) 02/23/20 16:34 Anion Gap 8 (5-15) 02/23/20 16:34 BUN 16 mg/dL (7-18) 02/23/20 16:34 Creatinine 0.64 mg/dL (0.55-1.02) 02/23/20 16:34 Estim Creat Clear Calc 136.08 ml/min 02/23/20 16:34 Est GFR (MDRD) Af Amer 137 mL/min (>60) 02/23/20 16:34 Est GFR (MDRD) Non-Af 113 mL/min (>60) 02/23/20 16:34 BUN/Creatinine Ratio 25.0 RATIO (10-20) H 02/23/20 16:34 Glucose 104 mg/dL (74-106) 02/23/20 16:34 Calcium 8.6 mg/dL (8.5-10.1) 02/23/20 16:34 Troponin I < 0.015 ng/mL (<0.045) 02/23/20 16:34 - EKG Initial EKG Interpretation: Sinus Rhythm - EKG demonstrates a normal sinus rhythm at a rate of 75. There is no ectopy or concerning features of ACS. - Medical Decision Making X-ray is normal. Basic blood work including d-dimer and troponin negative. Patient received a dose of Toradol. I believe this is most likely musculoskeletal chest pain as it is easily reproducible and given the above negative work-up. Patient will take anti-inflammatories return if worsening or concerns ED Disposition - Plan for ED Patient: Disposition: Home or Assisted Living Diagnosis: Chest wall pain Instructions: ED CHEST PAIN [place] Prescriptions: Naproxen 500 mg PO BID #14 tablet.dr Prescription Printed Referrals: Myra Trevino MD [STAFF PHYSICIAN] - 3-5 Days if not improving
[2020-02-23 16:55] LABS: Absolute Lymphocyte Count 4.61 X10^3/uL (0.83-4.51); Absolute Neutrophil Count 6.2 X10^3/uL (2.0-7.7); Basophil# 0.06 X10^3/uL; Basophil% 0.5 % (0-1); Eosinophil# 0.68 X10^3/uL; Eosinophils% 5.6 % (0-5); Hematocrit 42.9 % (37-47); Lymphocyte # 4.61 X10^3/ul (4.0); Lymphocyte % 37.7 % (19-41); Mean Corp Hgb Conc 32.6 g/dL (32-36); Mean Corpuscular Hgb 29.4 pg (27.0-32.0); Mean Corpuscular Volume 89.9 fL (81-99); Mean Platelet Vol. 10.6 fl (6.2-12.0); Monocyte# 0.65 X10^3/uL; Monocyte% 5.3 % (0-10); NRBC Flagged by Analyzer 0 % (0-5); Neutrophil # 6.18 X10^3/uL (2.7-7.7); Neutrophil % 50.6 % (47-70); POSITIVE MORPHOLOGY YES; Platelet Count 277 K/mm3 (150-450); RBC Distribution Width CV 12.4 % (11.6-14.6); RBC Distribution Width SD 40.5 fl (35.1-43.9); Red Blood Count 4.77 M/mm3 (4.2-5.4); White Blood Count 12.2 K/mm3 (4.4-11.0)
[2020-02-23 16:59] LABS: Differential Indicated SCAN CRITERIA MET
--- NOTE | 2020-02-23 17:01 | RAD_ITS ---
STUDY: X-RAY CHEST REASON FOR EXAM: Female, 34 years old. Chest pain TECHNIQUE: Frontal view of the chest COMPARISON: 08/18/2019 FINDINGS: The lungs are clear. There are no pleural effusions. There is no pneumothorax. The heart is normal in size. The visualized osseous structures are within normal limits. RAD/Chest 1 View (Portable) IMPRESSION: No acute thoracic pathology. Electronically Signed: Reji Cesar, at 17:32 EDT Tel , Service support ,
[2020-02-23 17:09] LABS: D-Dimer Quantitative (DVT/PE) 0.35 FEU/ug/m (0.27-0.49)
[2020-02-23] MEDS: Ketorolac 30 MG/ML Syringe IV (17:13)
[2020-02-23 17:15] LABS: Anion Gap 8 (5-15); BUN 16 mg/dL (7-18); Calcium,Total 8.6 mg/dL (8.5-10.1); Chloride 108 mmol/L (98-107); Creatinine, Serum 0.64 mg/dL (0.55-1.02); EST Glomerular Filtration Rate 113 mL/min (>60); Est Glom Filt Rate - Afr Amer 137 mL/min (>60); Estimated Creatinine Clearance 136.08 ml/min; Glucose 104 mg/dL (74-106); Potassium 3.6 mmol/L (3.5-5.1); Sodium Level 141 mmol/L (136-145)
[2020-02-23 17:28] LABS: Differential Comment SCANNED
[2020-02-23 17:33] VITALS: BP 100/65; PULSE 74; O2SAT 97
== END 2020-02-23 17:35 | disposition home or self-care (01) ==
LOC: ED 17:33
PROVIDERS: Emergency Provider Emergency Medicine
DX: R07.89 Other chest pain (principal); F17.200 Nicotine dependence, unspecified, uncomplicated
CPT/HCPCS: 71045; 80048; 84484; 85025; 85379; 93005; 96374; 99284; A4216

== ENCOUNTER 2020-04-28 10:05 | Emergency (ER) | payer MEDICAID, SELFPAY ==
[2020-04-28 10:06] VITALS: BP 115/74; PULSE 101; RESP 18; TEMP 36.7; O2SAT 95; BMI 40.8
--- NOTE | 2020-04-28 10:17 | ED.VIS.GEN ---
History of Present Illness Chief Complaint: Female C/O Informant: Patient Narrative: Patient presents emergency department with 10 days of a yeast infection involving her vagina and surrounding skin. She notes that the skin is very raw is now bleeding. She is tried Monistat and hydrocortisone creams. She states that where she works at [employer] is very hot and she sweats quite a bit. Past Medical History - Allergies and Home Meds Allergies/Adverse Reactions: Allergies hydrocodone bitartrate [From [place]] Allergy (Verified 04/28/20 10:08) Hives Primary Care Physician: Sherron Phan DO [STAFF PHYSICIAN] - (schedule follow up for gynecology follow up) Surgical History: hysterectomy Smoking Status: Current every day smoker Review of Systems General: Denies: Chills, Fever, Sweats Eyes: Denies: Visual changes - bilaterally, Diplopia ENT: Denies: Rhinorrhea, Sore throat Cardiovascular: Denies: Chest pain, Palpitations Respiratory: Denies: Dyspnea, Cough, Dyspnea on exertion Gastrointestinal: Denies: Abdominal pain, Nausea, Vomiting, Diarrhea, Melena, Hematochezia Genitourinary: Reports: - - See history of present illness. Denies: Dysuria, Hematuria, Frequency Musculoskeletal: Denies: Back pain, Extremity Pain Skin: Reports: Rash. Denies: Wounds Neurological: Denies: Headache, Weakness, Numbness Physical Exam Vital Signs/Narrative: Vital Signs Temp Pulse Resp BP Pulse Ox 04/28/20 10:06 98.1 F 101 H 18 115/74 95 Inital Vital Signs reviewed: Yes General: Well nourished, Well developed, No Acute Distress Head: Normocephalic, Atraumatic Eyes: Perrl, EOMI ENT: Moist mucous membranes, No rhinorrhea Neck: Supple, Nontender Cardiovascular: Regular rate, Regular rhythm, No murmurs Respiratory: No distress, CTA bilaterally, Chest nontender Abdomen: Soft, Nontender, Nondistended, Normal bowel sounds : - - Exam performed with kraft mill operator (Ann Marie Calderon RN) there is evidence of vaginal yeast infection with white thick exudate. The inguinal folds are cracked erythematous with exudate consistent with a candidiasis skin infection Back: Nontender, Normal Inspection Extremities: Nontender, No edema Skin: Normal color, No rash Neurological: Alert, Oriented x3, Cranial nerves II-XII grossly intact, Normal Strength, Normal Sensation Psychological: Normal affect, Normal Mood Diagnostic/Tx/Re-eval - Medical Decision Making Accu-Chek was 126. We will use oral Diflucan x2 doses as well as nystatin topical powder. I will write her to have a couple days off work. She needs to keep the area dry. She will be referred to gynecology for follow-up. ED Disposition - Plan for ED Patient: Disposition: Home or Assisted Living Diagnosis: Skin candidiasis, Vaginal candidiasis Instructions: Vaginal Infection: Yeast (Candidiasis), ED Candidiasis Cutaneous Prescriptions: Fluconazole [Diflucan] 150 mg PO X1 #2 tab Transmission Status: Pending to [facility]ER[facility] [address] Nystatin Powder [Mycostatin Powder] 1 applic TOPICAL TID 10 Days #1 bottle Transmission Status: Pending to [facility]ERIO [address] Referrals: Sherron Phan DO [STAFF PHYSICIAN] - (schedule follow up for gynecology follow up)
[2020-04-28 10:35] LABS: Bedside Glucose 126 mg/dL (70-110)
== END 2020-04-28 10:41 | disposition home or self-care (01) ==
LOC: ED 10:39
PROVIDERS: Emergency Provider Emergency Medicine
DX: B37.2 Candidiasis of skin and nail (principal); B37.3 Candidiasis of vulva and vagina; F17.200 Nicotine dependence, unspecified, uncomplicated; Z88.5 Allergy status to narcotic agent; Z90.710 Acquired absence of both cervix and uterus
CPT/HCPCS: 82962; 99283; 99284; J7030

== ENCOUNTER 2020-04-29 17:03 | Emergency (ER) | payer MEDICAID, SELFPAY ==
[2020-04-28 10:06] VITALS: BMI 40.8
[2020-04-29 17:04] VITALS: BP 116/75; PULSE 98; RESP 18; TEMP 36.4; O2SAT 95; BMI 40.2
--- NOTE | 2020-04-29 19:16 | ED.DCSUM_ITS ---
History of Present Illness Chief Complaint: Eye Problem Narrative: Patient is a 35-year-old female who presents to the emergency department for pain in her bilateral eyes with discharge and redness. Started upon awaking this morning. She was prescribed nystatin powder for yeast infection in the groin. States that she went to the bathroom last night did not wash her hands. She believes that she touched her eyes during her sleep which is what caused the pain today. He denies anybody with similar symptoms at home. She has been doing warm compresses to the eyes. There has been a yellow discharge bilaterally. She denies any foreign body sensation currently. She does not wear any corrective lenses. The other systemic symptoms including any fever/chills. She has been slightly nauseous but denies any vomiting. No ear pain or sore throat. No sinus pain. She denies any rashes. She has never had this happen before. She denies any loss of vision but states it does feel blurry to her bilaterally. Past Medical History - Allergies and Home Meds Allergies/Adverse Reactions: Allergies hydrocodone bitartrate [From [place]] Allergy (Verified 04/29/20 17:05) Hives Primary Care Physician: Lino Beck III, MD [STAFF PHYSICIAN] - 3-5 Days if not improving Care Physician,No Primary [Primary Care Provider] - Prior records reviewed: Yes Surgical History: hysterectomy Smoking Status: Current every day smoker Review of Systems All systems negative except as indicated General: Denies: Chills, Fever, Sweats Eyes: Reports: Blurred Vision - bilaterally. Denies: Diplopia ENT: Denies: Bilateral ear pain, Rhinorrhea, Sore throat Cardiovascular: Denies: Chest pain, Palpitations Respiratory: Denies: Dyspnea, Cough, Dyspnea on exertion Gastrointestinal: Reports: Nausea. Denies: Abdominal pain, Vomiting, Diarrhea Genitourinary: Denies: Dysuria, Hematuria, Frequency Musculoskeletal: Denies: Back pain, Extremity Pain Skin: Denies: Rash, Wounds Neurological: Denies: Headache, Weakness, Numbness Physical Exam Vital Signs/Narrative: Vital Signs Temp Pulse Resp BP Pulse Ox 04/29/20 17:04 97.6 F L 98 18 116/75 95 Inital Vital Signs reviewed: Yes General: Well nourished, Well developed, No Acute Distress Head: Normocephalic, Atraumatic Eyes: - - Injected conjunctiva bilaterally. There is some discharge bilaterally. EOMI without proptosis. Perrl. ENT: Moist mucous membranes, No rhinorrhea Neck: Supple, Nontender Cardiovascular: Regular rate, Regular rhythm, No murmurs Respiratory: No distress, CTA bilaterally Abdomen: Soft, Nontender, Nondistended Back: Nontender Extremities: Nontender, No edema Skin: Normal color, No rash Neurological: Alert, Oriented x3, Normal Strength, Normal Sensation Psychological: Normal affect, Normal Mood Diagnostic/Tx/Re-eval - Medical Decision Making Patient presents to the emergency department for conjunctivitis. She is concerned that she got nystatin powder in her eyes last night. Each eye was copiously irrigated with normal saline. She states that this alone did make her eyes feel much better. Tetracaine drops were then instilled bilaterally. This also helped relieve the rest of the pain. Foreseen exam performed which did not reveal any corneal abrasions. Will treat with erythromycin ointment. She is to follow-up with her PCP for close follow-up. Warning signs and symptoms for which to return to the emergency department are reviewed with her including any vision changes/loss. He understands and is agreeable this plan. Will discharge home in stable condition. Is unclear if this was an allergic conjunctivitis secondary to the nystatin versus bacterial conjunctivitis. ED Disposition - Plan for ED Patient: Disposition: Home or Assisted Living Diagnosis: Acute conjunctivitis, bilateral Instructions: ED Conjunctivitis Nonspecific Prescriptions: Erythromycin Ophthalmic 1 applic EACH EYE TID 7 Days #1 opth.tube Transmission Status: Received by [facility] [facility] Referrals: Care Physician,No Primary [Primary Care Provider] - Lino Beck III, MD [STAFF PHYSICIAN] - 3-5 Days if not improving
[2020-04-29 21:03] VITALS: RESP 16
[2020-04-29 21:17] VITALS: RESP 16
[2020-04-29] MEDS: Tetracaine 0.5% Ophthalmic Bottle 1 DRP EACH EYE (21:17)
== END 2020-04-29 21:21 | disposition home or self-care (01) ==
PROVIDERS: Emergency Provider Emergency Medicine
DX: H10.33 Unspecified acute conjunctivitis, bilateral (principal); B37.2 Candidiasis of skin and nail; F17.200 Nicotine dependence, unspecified, uncomplicated; Z88.5 Allergy status to narcotic agent; Z90.710 Acquired absence of both cervix and uterus
CPT/HCPCS: 99284; J7030

== ENCOUNTER 2020-05-06 18:35 | Emergency (ER) | payer MEDICAID, SELFPAY ==
[2020-05-06 18:36] VITALS: BP 134/73; PULSE 97; RESP 16; TEMP 36.1; O2SAT 97; BMI 34.2
--- NOTE | 2020-05-06 18:59 | ED.VISSUMM ---
- ER Visit Summary Date of Service: 05/06/20 Chief Complaint: Yeast infection History of Present Illness: The patient is a 35 F who recently moved here. She reports that she has been having problems with a yeast infection for 21 days. She complains of an itching, burning pain and a thick white creamy discharge. She is status post hysterectomy. She states that she is had problems with yeast infections in the past, but not this severe. She denies a history of diabetes. Patient reports that she was here on April 28 and was prescribed Diflucan. She took 2 doses and it cleared up, but then returned. She denies any constitutional symptoms. No fever, chills, nausea, or vomiting. Physical Examination: Vitals: Stable. Afebrile. General: Well-nourished and well-developed. Head: Normocephalic atraumatic. Neck: Supple, no lymphadenopathy. No JVD. Nontender. Cardiovascular: Regular rate and rhythm. No murmurs. Respiratory: No respiratory distress. Clear to auscultation bilaterally. Abdominal: Soft, nontender, nondistended, normal bowel sounds. No guarding, rebound, or peritoneal signs. : Excoriated labia majora right greater than left. There is a thick white discharge at the introitus. This does look consistent with E[place]. Back: Nontender. Extremities: Nontender, no edema. Skin: Normal color, no rash. Neurologic: Alert and oriented ?3. Cranial nerves II through XII are intact. Normal strength and sensation. Psych: Normal affect. Emergency Department Course and Treatment: Had a prolonged discussion the patient about treatment of this. Treatment Plan: Given the excoriation the patient will be placed on a nystatin/triamcinolone cream to act as a barrier. She will be discharged with Diflucan again. However, this time she will be given a prescription for 4 doses. Instructed to follow-up with Dr. Villa who is on for no doc gynecology in 1 week if not improving. Return to the emergency department for any worsening symptoms. Disposition: To home in improved and stable condition. Impression: 1. Vaginal candidiasis. This note was generated with [employer] software. It may contain incorrect words, spelling, and punctuation that were not noted in review of the chart prior to signing ED Disposition - Plan for ED Patient: Instructions: Vaginal Infection: Yeast (Candidiasis) Prescriptions: Fluconazole [Diflucan] 150 mg PO UD #4 tab Prescription Printed Nystatin/Triamcin Cream [Mycolog] 1 applic TOPICAL BID #1 tube Prescription Printed Referrals: Hector Villa MD [STAFF PHYSICIAN] - 1 Week if not improving
== END 2020-05-06 19:16 | disposition home or self-care (01) ==
LOC: ED 19:03
PROVIDERS: Emergency Provider Emergency Medicine
DX: B37.3 Candidiasis of vulva and vagina (principal); Z90.710 Acquired absence of both cervix and uterus; F17.210 Nicotine dependence, cigarettes, uncomplicated
CPT/HCPCS: 99282

== ENCOUNTER 2020-10-09 10:39 | Emergency (ER) | payer MEDICAID, SELFPAY ==
[2020-10-09 10:40] VITALS: BP 110/68; PULSE 88; RESP 17; TEMP 35; O2SAT 96; BMI 41.1
--- NOTE | 2020-10-09 10:55 | EKG12_ITS ---
Test Reason : CP Blood Pressure : / mmHG Vent. Rate : 075 BPM Atrial Rate : 075 BPM P-R Int : 134 ms QRS Dur : 076 ms QT Int : 388 ms P-R-T Axes : 058 071 075 degrees QTc Int : 433 ms Normal sinus rhythm Normal ECG Confirmed by WINNIE LARES, LOPEZ ([id number]), newspaper or periodical editor ZACARIAS PANCHAL ([id number]) on 10/14/2020 10:41:48 AM Referred By: TRINH Confirmed By:LOPEZ ZHOU MD
--- NOTE | 2020-10-09 10:57 | ED.VISSUMM ---
- ER Visit Summary Date of Service: 10/09/20 Chief Complaint: Left chest pain History of Present Illness: The patient is a 35 F history of prior kidney stone. She is around 6 AM is when she awoke with left-sided chest wall pain and heartburn. Says been constant. Not associated with exertion. No dyspnea. She is never had a DVT or PE. She denies any recent travel, surgery or immobilization. There is no calf pain or swelling. She did lift a washer over the weekend. She denies any hemoptysis. States she is never had anything like this before. Physical Examination: Well-appearing young female. Vital signs stable afebrile. Pulse ox 96% on room air no signs of hypoxia. H EENT exam unremarkable. Neck nontender no lymphadenopathy. Lungs clear to auscultation bilaterally. Heart regular rhythm no murmur. Abdomen soft nontender normal bowel sounds no peritoneal signs. Left chest wall primarily left-sided also mild sternal reproducible tenderness. No ecchymosis bruising subcu air crepitance. No redness or warmth. Looking at the chest wall there is no abnormality. Patient is moving all 4 extremities. Calves are nontender without edema or cords. Neurologically she is awake alert with no focal motor deficits. Back nontender. Test Results: EKG shows a normal sinus rhythm rate of 75 with no acute signs of LA or ischemia. Chest x-ray portable 1 view interpreted by myself shows no acute abnormality. Normal cardiac silhouette mediastinum. Normal lung cornejo. Radiologist also read and agrees. CBC normal white count 8. Hemoglobin 14. No bands chemistries unremarkable. Troponin normal. Repeat exam patient is doing well at 2:08 PM to be discharged home. Emergency Department Course and Treatment: Patient undergo a cardiac work-up. Clinically I think this is chest wall strain. It does not appear to be reflux. Even though she initially described as heartburn. It is obviously reproducible on the chest wall. She did do heavy lifting this past weekend. She has no risk factors for DVT or PE nor history. She will be treated with p.o. Motrin. Treatment Plan: Ice to the chest wall. Motrin and Tylenol for pain and inflammation. Return if worse or follow-up if not improving. Disposition: Discharge Impression: Acute left chest wall pain secondary chest wall strain This note was generated with [employer] dictation software. It may contain incorrect words, spelling, and punctuation that were not noted in review of the chart prior to signing ED Disposition - Plan for ED Patient: Disposition: Home or Assisted Living Instructions: ED Chest Wall Pain, Costochondritis Referrals: Vinay Deng MD [STAFF PHYSICIAN] - 3-5 Days if not improving Additional Instructions: Ice to chest wall. Motrin for pain and inflammation and Tylenol for pain. This should progressively start feeling better if you feel a lot worse return to the ER otherwise follow-up with primary care physician. I think you strained your chest wall muscle and soreness aggressively get better.
--- NOTE | 2020-10-09 11:00 | ED.DEP ---
ED Disposition - Plan for ED Patient: Disposition: Home or Assisted Living Instructions: ED Chest Wall Pain, Costochondritis Referrals: Vinay Deng MD [STAFF PHYSICIAN] - 3-5 Days if not improving Additional Instructions: Ice to chest wall. Motrin for pain and inflammation and Tylenol for pain. This should progressively start feeling better if you feel a lot worse return to the ER otherwise follow-up with primary care physician. I think you strained your chest wall muscle and soreness aggressively get better.
[2020-10-09] MEDS: Ibuprofen 600 MG Tablet PO (11:05)
--- NOTE | 2020-10-09 11:11 | RAD_ITS ---
STUDY: X-RAY CHEST REASON FOR EXAM: Female, 35 years old. CHEST PAIN TECHNIQUE: Single AP portable view of the chest. COMPARISON: Comparison is made with prior study dated 02/23/2020. FINDINGS: The lungs are clear and expanded. There is no demonstrated pleural abnormality. Normal size heart. Normal mediastinum and анна. Normal visualized pulmonary arteries. Normal visualized aortic arch and descending thoracic aorta. Normal visualized thoracic spine. Normal visualized ribs, clavicles, and shoulders. There is no demonstrated abnormality of the visualized soft tissue structures of the upper abdomen. RAD/Chest 1 View (Portable) IMPRESSION: Normal x-ray examination of the chest. Electronically Signed: Justice Samaniego MD at 11:51 EST , Service support ,
[2020-10-09 11:13] LABS: Absolute Lymphocyte Count 3.43 X10^3/uL (0.83-4.51); Absolute Neutrophil Count 4.3 X10^3/uL (2.0-7.7); Basophil# 0.05 X10^3/uL; Basophil% 0.6 % (0-1); Eosinophil# 0.41 X10^3/uL; Eosinophils% 4.7 % (0-5); Hematocrit 43.5 % (37-47); Hemoglobin 14.2 g/dL (12.0-15.0); Lymphocyte # 3.43 X10^3/ul (4.0); Lymphocyte % 39.6 % (19-41); Mean Corp Hgb Conc 32.6 g/dL (32-36); Mean Corpuscular Hgb 28.9 pg (27.0-32.0); Mean Corpuscular Volume 88.4 fL (81-99); Mean Platelet Vol. 10.5 fl (6.2-12.0); Monocyte# 0.45 X10^3/uL; Monocyte% 5.2 % (0-10); NRBC Flagged by Analyzer 0 % (0-5); Neutrophil % 49.6 % (47-70); Platelet Count 253 K/mm3 (150-450); RBC Distribution Width CV 12.3 % (11.6-14.6); RBC Distribution Width SD 39.6 fl (35.1-43.9); Red Blood Count 4.92 M/mm3 (4.2-5.4); White Blood Count 8.7 K/mm3 (4.4-11.0)
[2020-10-09 11:30] LABS: Anion Gap 3 (5-15); BUN 17 mg/dL (7-18); BUN/Creat Ratio 25.6 RATIO (10-20); Calcium,Total 8.5 mg/dL (8.5-10.1); Chloride 112 mmol/L (98-107); Creatinine, Serum 0.66 mg/dL (0.55-1.02); EST Glomerular Filtration Rate 108 mL/min (>60); Est Glom Filt Rate - Afr Amer 131 mL/min (>60); Estimated Creatinine Clearance 146.94 ml/min; Glucose 99 mg/dL (74-106); Potassium 3.8 mmol/L (3.5-5.1); Sodium Level 142 mmol/L (136-145)
== END 2020-10-09 12:24 | disposition home or self-care (01) ==
LOC: ED 11:09
PROVIDERS: Emergency Provider Emergency Medicine
DX: S29.011A Strain of muscle and tendon of front wall of thorax, initial encounter (principal); X50.0XXA Overexertion from strenuous movement or load, initial encounter; Y93.9 Activity, unspecified; Y92.89 Other specified places as the place of occurrence of the external cause; Y99.9 Unspecified external cause status; Z87.442 Personal history of urinary calculi
CPT/HCPCS: 71045; 80048; 84484; 85025; 93005; 99285; A4216

== ENCOUNTER 2021-04-20 14:16 | Emergency (ER) | payer MEDICAID, SELFPAY ==
[2021-04-20 14:17] VITALS: BP 103/76; PULSE 77; RESP 16; TEMP 36.7; O2SAT 99; BMI 39.7
--- NOTE | 2021-04-20 14:59 | ED.VIS.BACK ---
HPI History of Present Illness Chief Complaint: Back Informant: patient Narrative Narrative: Patient presents with sore back after moving a lot of furniture at home. She states she did not move 1 furniture piece and have sudden pain. But it was just sore afterwards. She laid down and it was worse. She then put heat on it today and that seemed to make it worse when she took the heat off. The pain is in the upper lumbar area. It does not radiate. There is no numbness tingling or weakness. No bowel or bladder complaints. No hematuria or dysuria. She has had kidney stones but states this feels nothing like it. She has no chest pain. No shortness of breath or pain with breathing. No abdominal pain. No nausea vomiting. Moving or pressing on it makes it worse and staying still makes a little better. Heat felt good when it was on but it worsened when she took the heat off. PFSH PFSH Home Medications cyclobenzaprine 10 mg PO TID PRN #20 tab 04/20/21 [Rx Last Taken Unknown] naproxen [Naprosyn] 500 mg PO BID PRN #20 tab 04/20/21 [Rx Last Taken Unknown] Allergy/AdvReac Type Severity Reaction Status Date / Time hydrocodone bitartrate Allergy Hives Verified 04/20/21 14:16 [From [facility]] Social History Smoking Status: Current every day smoker tobacco type: cigarettes ROS ROS ED Constitutional Constitutional ED: Denies chills or fever(s) ENT ENT ED: Denies sore throat Respiratory/Chest Respiratory/Chest: Denies dyspnea, dyspnea on exertion or sputum Gastrointestinal Gastrointestinal: Denies abdominal pain, diarrhea, nausea or vomiting Genitourinary Genitourinary ED: Denies dysuria, hematuria or urinary frequency Musculoskeletal Musculoskeletal: Reports back pain; Denies neck pain Integumentary Denies rash Neurologic Neurologic: Denies headache(s), paresthesias or weakness Allergic/Immunologic Allergic/Immunologic ED: Denies urticaria EXAM Physical Exam Const Vital Signs: 04/20/21 14:17 Temperature 98.0 F Temperature Source Temporal Pulse Rate 77 Respiratory Rate 16 Blood Pressure 103/76 Blood Pressure Mean 85 Pulse Ox 99 Oxygen Delivery Method Room Air Positive well nourished and well developed General Appearance ED: well developed and NAD HEENT Negative for trauma Eyes EOMs intact bilaterally Resp normal respiratory effort and clear to auscultation bilaterally Resp Narrative: No pain with a deep breath. Cardio regular rate, regular rhythm and no murmurs GI normal to inspection, nondistended, normoactive bowel sounds, soft to palpation and non-tender Back/Spine normal to inspection Back/Spine Narrative: Patient has bilateral paraspinal tenderness of the upper lumbar area. It seems a little bit more on her left than the right. No redness. No rash. No vesicles. Extremity normal to inspection General Extremety ED: Negative for edema or tenderness General Extremity: Negative for edema Psych mental status grossly normal Skin no rashes or lesions noted MDM MDM MDM Narrative Medical decision making narrative: Patient has what appears to be a myofascial strain. There is no acute pain. I do not think this needs x-ray. No indication of kidney stone. Abdomen is benign. No indication of cardiopulmonary issue or complaint. We will get her on nonsteroidals and muscle relaxants. She will use ice. Return with any numbness tingling weakness, hematuria, abdominal pain, trouble breathing or or other concerns. Discharge Plan Triage Chief Complaint: Back ED Provider: Fabricio Richard Dx/Rx/DC Orders Clinical Impression: Lumbar strain Instructions: ED Back Sprain/Strain Prescriptions: New naproxen [Naprosyn] 500 mg tablet 500 mg PO BID PRN (Reason: pain) Qty: 20 RF: 0 cyclobenzaprine 5 mg tablet 10 mg PO TID PRN (Reason: muscle spasm) Qty: 20 RF: 0 Primary Care Provider: Ian Mon Referrals: Nina Harkins MD [STAFF PHYSICIAN] - 3-5 Days if not improving Care Physician,No Primary [NON-STAFF] - Disposition Disposition: Home, Self Care
[2021-04-20] MEDS: Naproxen 375 MG Tablet PO (15:22)
[2021-04-20] MEDS: cycloBENZAPRine HCl 10 MG Tablet PO (15:22)
[2021-04-20 15:24] VITALS: RESP 16
== END 2021-04-20 15:25 | disposition home or self-care (01) ==
LOC: ED 15:05
PROVIDERS: Emergency Provider Emergency Medicine; PCP Family Medicine
DX: S39.012A Strain of muscle, fascia and tendon of lower back, initial encounter (principal); F17.210 Nicotine dependence, cigarettes, uncomplicated; Z79.1 Long term (current) use of non-steroidal anti-inflammatories (NSAID); Z87.442 Personal history of urinary calculi; X50.0XXA Overexertion from strenuous movement or load, initial encounter; Y93.89 Activity, other specified; Y92.009 Unspecified place in unspecified non-institutional (private) residence as the place of occurrence of the external cause; Y99.9 Unspecified external cause status
CPT/HCPCS: 99283

== ENCOUNTER 2021-06-28 14:30 | Inpatient (IN) | payer MEDICAID, SELFPAY ==
[2021-06-28] VITALS (12 sets, daily range): BP systolic 105–147; BP diastolic 68–77; PULSE 88–116; RESP 18–26; TEMP 36.1–36.4; O2SAT 90–95; BMI 38.3; BMI 38.1
--- NOTE | 2021-06-28 15:50 | RAD_ITS ---
INDICATION: Respiratory distress with decreased air movement EXAMINATION/TECHNIQUE: X-RAY - XR Chest 1 View COMPARISON: 10/09/2020 FINDINGS: The lungs are clear. The cardiomediastinal silhouette is unremarkable. No pleural effusion or pneumothorax. No acute osseous abnormalities. RAD/Chest 1 View (Portable) IMPRESSION: No acute radiographic abnormalities. Electronically Signed: Nic Lama MD at 17:35 EDT Tel , Service support ,
--- NOTE | 2021-06-28 15:50 | CT_ITS ---
EXAMINATION : Head CT w/out contrast HISTORY : [place]clap headache with syncope COMPARISON : None. TECHNIQUE : Multiple contiguous axial images were obtained from the skull base to the vertex without intravenous contrast. A radiation dose optimization technique was used for this scan. FINDINGS : The ventricles and sulci are normal in size. There is no evidence for acute intracranial hemorrhage, mass effect, or midline shift. There is no extra-axial fluid collection. There is normal welch-white differentiation, without CT evidence of acute ischemia or infarct. The skull base and calvarium are unremarkable. The orbits are unremarkable. The paranasal sinuses are clear. The mastoid air cells are well-aerated. The soft tissues are unremarkable. CT/Brain/Head without Contrast IMPRESSION: No acute intracranial abnormality. Electronically Signed: Nic Lama MD at 17:36 EDT Tel , Service support ,
--- NOTE | 2021-06-28 15:51 | EKG12_ITS ---
Test Reason : Blood Pressure : / mmHG Vent. Rate : 098 BPM Atrial Rate : 098 BPM P-R Int : 130 ms QRS Dur : 070 ms QT Int : 356 ms P-R-T Axes : 060 070 071 degrees QTc Int : 454 ms Normal sinus rhythm Normal ECG Confirmed by COLT LARES, JESUS ([id number]), editor house organ WILDA MICHAELS ([id number]) on 06/29/2021 1:02:58 PM Referred By: EDDIE Confirmed By:JESUS GREGORY MD
[2021-06-28] MEDS: Albuterol 2.5 MG/3 ML VIAL.NEB. INHALATION ×3 (16:07→20:30)
[2021-06-28 16:19] LABS: Absolute Lymphocyte Count 2.73 X10^3/uL (0.83-4.51); Absolute Neutrophil Count 10.5 X10^3/uL (2.0-7.7); Basophil# 0.06 X10^3/uL; Basophil% 0.4 % (0-1); Eosinophil# 0.71 X10^3/uL; Eosinophils% 4.7 % (0-5); Hematocrit 44.8 % (37-47); Hemoglobin 14.6 g/dL (12.0-15.0); Lymphocyte # 2.73 X10^3/ul (0.83-4.51); Lymphocyte % 18.2 % (19-41); Mean Corp Hgb Conc 32.6 g/dL (32-36); Mean Corpuscular Hgb 28.8 pg (27.0-32.0); Mean Corpuscular Volume 88.4 fL (81-99); Mean Platelet Vol. 10.5 fl (6.2-12.0); Monocyte# 0.93 X10^3/uL; Monocyte% 6.2 % (0-10); NRBC Flagged by Analyzer 0 % (0-5); Neutrophil # 10.52 X10^3/uL (2.7-7.7); Neutrophil % 69.9 % (47-70); Platelet Count 303 K/mm3 (150-450); RBC Distribution Width CV 11.9 % (11.6-14.6); RBC Distribution Width SD 37.8 fl (35.1-43.9); Red Blood Count 5.07 M/mm3 (4.2-5.4)
--- NOTE | 2021-06-28 16:25 | EDS_ITS ---
HPI History of Present Illness Chief Complaint: Shortness of Breath Informant: patient Onset/Context/Timing Onset: Days (5 days ago June 23) Context: sudden Timing: Continuous and Waxes and wanes Quality: Positive for Dyspnea on exertion and Wheezing; Negative for PND Current Severity: Mild Maximum Severity: Severe Worsened by: Exertion and Coughing Relieved by: Nothing Associated Symptoms cough, fever and sore throat; Negative for rhinorrhea, post nasal drip, ear pain, chills, sweats, clear sputum, white sputum, yellow sputum or green sputum Chest Pain: Positive for None Narrative Narrative: Patient is a 36-year-old woman who smokes 1/3 pack/day presents because of shortness of breath that has not gotten better in spite of inhaler and antibiotics. She was placed on antibiotics which she had patient has right middle lobe on 2 view chest x-ray interpreted by radiologist at [facility], [place]. She has had 2 - Covid test. She denies loss of taste or smell. She denies diarrhea. She had nausea vomiting. With concerns this morning she awoke had abrupt onset of headache and woke up on the floor hours later. She still has a headache. She does report light sensitivity. She denies neck stiffness. She denies chest discomfort. She denies history of VTE. She denies leg pain, swelling discoloration. She denies hematemesis, melena medic easier. She denies urologic symptoms. She denies paresthesia, anesthesia or motor weakness. PE Risk Factors: Positive for Recent immobilization; Negative for Cancer, OCP + Smoking + > 35, Prior DVT or PE, Recent surgery and Recent travel Prior similar symptoms: Yes Recent Illness/Hospitalization: Yes PFSH PFSH Medical History no medical history Home Medications cyclobenzaprine 10 mg PO TID PRN #20 tab 04/20/21 [Rx Last Taken Unknown] naproxen [Naprosyn] 500 mg PO BID PRN #20 tab 04/20/21 [Rx Last Taken Unknown] Allergy/AdvReac Type Severity Reaction Status Date / Time hydrocodone bitartrate Allergy Hives Verified 04/20/21 14:16 [From [place]] Social History (Updated 06/28/21 @ 16:[address] Miguelito Cesar MD) household members: none Smoking Status: Current every day smoker tobacco type: cigarettes alcohol intake: current alcohol intake frequency: other substance use type: does not use ROS ROS ED Constitutional Constitutional ED: Denies chills, fever(s), sweats or weight loss Eyes Eyes: Denies blurry vision or change in vision ENT ENT ED: Reports sore throat; Denies ear pain or rhinorrhea Cardiovascular Cardiovascular: Reports palpitations; Denies chest pain, orthopnea, paroxysmal nocturnal dyspnea or racing heartbeat Respiratory/Chest Respiratory/Chest: Reports cough, dyspnea, dyspnea on exertion and sputum; Denies orthopnea or paroxysmal nocturnal dyspnea Gastrointestinal Gastrointestinal: Reports abdominal pain, nausea and vomiting; Denies constipation or diarrhea Genitourinary Genitourinary ED: Denies dysuria, hematuria or urinary frequency Musculoskeletal Musculoskeletal: Reports arthralgias and myalgias; Denies back pain Integumentary Denies rash Neurologic Neurologic: Reports headache(s); Denies paresthesias or weakness Endocrine Endocrinology: Denies polydipsia, polyphagia or polyuria Hematologic/Lymphatic Hematologic/Lymphatic: Denies easy bleeding or easy bruising EXAM Physical Exam Const Vital Signs: 06/28/21 14:30 06/28/21 16:07 06/28/21 16:24 Temperature 97 F L 97.1 F L Temperature Source Temporal Oral Pulse Rate 111 H 88 111 H Respiratory Rate 18 20 H 23 H Respiratory Effort Short of Breath Respiratory Depth Normal Respiratory Pattern Normal Tachypnea Blood Pressure 111/72 134/72 H Blood Pressure Mean 85 92 Pulse Ox 92 95 Oxygen Delivery Method Room Air Room Air Oxygen Flow Rate (L/min) 06/28/21 17:40 06/28/21 18:00 06/28/21 18:19 Temperature Temperature Source Pulse Rate 104 H 109 H Respiratory Rate 20 H 26 H Respiratory Effort Short of Breath Respiratory Depth Respiratory Pattern Tachypnea Tachypnea Blood Pressure Blood Pressure Mean Pulse Ox 93 Oxygen Delivery Method Room Air Room Air Oxygen Flow Rate (L/min) 92 06/28/21 20:11 Temperature Temperature Source Pulse Rate 106 H Respiratory Rate 23 H Respiratory Effort Short of Breath Labored Respiratory Depth Shallow Respiratory Pattern Tachypnea Blood Pressure Blood Pressure Mean Pulse Ox 91 Oxygen Delivery Method Nasal Cannula Oxygen Flow Rate (L/min) 2 Positive well nourished and well developed General Appearance ED: well developed and other Patient is tachypneic in spite of what the nurse document his respiratory rate. She does not look well. ; Negative for NAD HEENT Reports TM's clear and moist mucous membranes HEENT Narrative: Nares patent. No tenderness over the frontal, ethmoid or maxillary sinuses. There is no meningeal findings. atraumatic; Negative for trauma or tenderness Tympanic Membrane ED: Yes TM's clear Eyes PERRL and EOMs intact bilaterally General Eye ED: Negative for pale conjunctiva or scleral icterus Neck no lymphadenopathy, supple, no meningeal signs and no JVD Resp No normal respiratory effort and No clear to auscultation bilaterally Auscultation: wheezes expiratory wheezes and scattered wheezes and diminished lung sounds bilateral and diffuse Cardio regular rate, S1 normal heart sound, S2 normal heart sound and no murmurs Rate: bradycardia GI non-tender, non-distended and no masses Auscultation: normoactive bowel sounds Palpation: soft Neuro oriented x3, CN's II-XII intact bilaterally and no sensory deficits noted Neuro Narrative: There is no clonus or Babinski sign. DTRs are symmetric. Rajinder Coma Scale: document GCS findings Spontaneous Obeys Commands Oriented 15 Sensorium / Orientation: alert Motor Exam: strength 5/5 throughout Psych mental status grossly normal Thought Process: normal thought process Skin no wounds Lesions: no lesions Rashes: no rashes MDM MDM MDM Narrative Medical decision making narrative: With abrupt headache and syncope need to rule out subarachnoid hemorrhage. CT of the head was obtained. Patient is in obvious respiratory distress. Will repeat Covid test. Chest x-ray was ordered. She received and albuterol treatment. Appropriate labs were obtained to assess for anemia, renal function, anion gap electrolyte abnormality because of her GI symptoms. Since she is not PERC negative a D-dimer was obtained. D-dimer was normal. Chest x-ray was normal. CT of the head revealed no intracranial bleed and specifically no evidence of subarachnoid hemorrhage. Patient's work-up is unremarkable. Patient did improve with albuterol treatment. I was informed by nursing staff at [facility] find that she is wheezing again. Verbal order was placed for additional aerosol treatment. We will also order Solu-Medrol I was informed patient desaturated to 88-89% on room air. She is present on oxygen. She is wheezing again. Her breathing is still rapid. Will speak with hospitalist regarding admission. Lab Data Attestation: I reviewed the patient's lab results. Labs: Laboratory Results - last 24 hr 06/28/21 06/28/21 06/28/21 16:07 16:07 16:07 WBC 15.0 H RBC 5.07 Hgb 14.6 Hct 44.8 MCV 88.4 MCH 28.8 MCHC 32.6 RDW Std Deviation 37.8 RDW Coeff of Raeann 11.9 Plt Count 303 MPV 10.5 Immature Gran % (Auto) 0.600 Neut % (Auto) 69.9 Lymph % (Auto) 18.2 L Mcduffie % (Auto) 6.2 Eos % (Auto) 4.7 Baso % (Auto) 0.4 Absolute Neuts (auto) 10.5 H Absolute Lymphs (auto) 2.73 Nucleated RBC % 0 D-Dimer Quant (PE/DVT) <= 0.27 Sodium 139 Potassium 4.1 Chloride 104 Carbon Dioxide 27.0 Anion Gap 8 BUN 10 Creatinine 0.67 Estim Creat Clear Calc 133.43 Est GFR (MDRD) Af Amer 129 Est GFR (MDRD) Non-Af 107 BUN/Creatinine Ratio 15.0 Glucose 109 H Lactic Acid Calcium 9.2 Total Bilirubin 0.60 AST 30 ALT 43 Alkaline Phosphatase 48 Total Protein 7.9 Albumin 3.3 Globulin 4.6 H Albumin/Globulin Ratio 0.7 L 06/28/21 16:07 WBC RBC Hgb Hct MCV MCH MCHC RDW Std Deviation RDW Coeff of Raeann Plt Count MPV Immature Gran % (Auto) Neut % (Auto) Lymph % (Auto) Mcduffie % (Auto) Eos % (Auto) Baso % (Auto) Absolute Neuts (auto) Absolute Lymphs (auto) Nucleated RBC % D-Dimer Quant (PE/DVT) Sodium Potassium Chloride Carbon Dioxide Anion Gap BUN Creatinine Estim Creat Clear Calc Est GFR (MDRD) Af Amer Est GFR (MDRD) Non-Af BUN/Creatinine Ratio Glucose Lactic Acid 1.1 Calcium Total Bilirubin AST ALT Alkaline Phosphatase Total Protein Albumin Globulin Albumin/Globulin Ratio Radiography Chest X-Ray - ED: 1 View, Read by ED Physician, Normal, Heart, Lungs (Minor chronic findings), Mediastinum, Bony Structures and No Acute Disease Diagnostic Testing: Clinical Impression(s) from Imaging Studies Brain CT 06/28/21 15:50 IMPRESSION: No acute intracranial abnormality. Electronically Signed: Nic Lama MD at 17:36 EDT Tel , Service support , Chest X-Ray 06/28/21 15:50 IMPRESSION: No acute radiographic abnormalities. Electronically Signed: Nic Lama MD at 17:35 EDT Tel , Service support , EKG Initial EKG: Attestation: I personally reviewed and interpreted this EKG as follows: Interpretation: Sinus Rhythm (The EKG is normal. Normal sinus rhythm with a ventricular 98. IN interval is 130 ms. QS duration 70 ms. QT duration 306 ms. Clifford is normal.) Discharge Plan Triage Chief Complaint: Shortness of Breath ED Provider: Miguelito Cesar Dx/Rx/DC Orders Clinical Impression: Acute upper respiratory infection, Hypoxia, Acute bronchospasm, Acute headache Prescriptions: No Action naproxen [Naprosyn] 500 mg tablet 500 mg PO BID PRN (Reason: pain) Qty: 20 RF: 0 cyclobenzaprine 5 mg tablet 10 mg PO TID PRN (Reason: muscle spasm) Qty: 20 RF: 0 Primary Care Provider: Ian Mon Referrals: Ian Mon MD [Primary Care Provider] -
[2021-06-28 16:35] LABS: ALB/GLOB Ratio 0.7 RATIO (0.9-2.4); AST(SGOT) 30 U/L (15-37); Alanine Aminotransfer ALT/SGPT 43 U/L (13-56); Albumin, Serum 3.3 g/dL (3.2-5.0); Alkaline Phosphatase 48 U/L (45-117); Anion Gap 8 (5-15); BUN 10 mg/dL (7-18); Calcium,Total 9.2 mg/dL (8.5-10.1); Chloride 104 mmol/L (98-107); Creatinine, Serum 0.67 mg/dL (0.55-1.02); EST Glomerular Filtration Rate 107 mL/min (>60); Est Glom Filt Rate - Afr Amer 129 mL/min (>60); Estimated Creatinine Clearance 133.43 ml/min; Globulin 4.6 g/dL (2.2-4.2); Glucose 109 mg/dL (74-106); Potassium 4.1 mmol/L (3.5-5.1); Protein, Total 7.9 g/dL (6.4-8.2); Sodium Level 139 mmol/L (136-145)
[2021-06-28 16:42] LABS: Lactic Acid 1.1 mmol/L (0.4-1.9)
[2021-06-28 17:02] LABS: D-Dimer Quantitative (DVT/PE) <= 0.27 FEU/ug/m (0.27-0.49)
[2021-06-28] MEDS: MethylPREDNISolone 125 MG/2 ML Vial IV (18:23)
--- NOTE | 2021-06-28 20:58 | HP.PCM.HOS_ITS ---
HPI - General General Date of Admission: 06/28/21 HPI Narrative KHAI HOYT, is a 36 F with a significant history of tobacco abuse who presents to emergency department with a 6-day history of progressively worsening shortness of breath. Associated with symptom is productive cough of thick clear sputum. Further she has wheezes. Outpatient she was tested twice for COVID-19 virus in the week of presentation. Both COVID-19 virus test was negative. On presentation she also had another COVID-19 test that was also negative. Patient reports that on the day of presentation she had severe headache. Thereafter she found herself on the floor. She thinks she passed out and spent about 6 hours on the floor. PFSH Medical History Kidney disease Kidney stones Smoker Medical History no medical history Home Medications cyclobenzaprine 10 mg PO TID PRN #20 tab 04/20/21 [Rx Last Taken Unknown] naproxen [Naprosyn] 500 mg PO BID PRN #20 tab 04/20/21 [Rx Last Taken Unknown] melatonin 5 mg PO QHS 06/28/21 [History Last Taken Unknown] Allergy/AdvReac Type Severity Reaction Status Date / Time hydrocodone bitartrate Allergy Hives Verified 04/20/21 14:16 [From [place]] Family History Other Heart disease Surgical History History of hysterectomy Social History household members: none Smoking Status: Current every day smoker tobacco type: cigarettes alcohol intake: current alcohol intake frequency: other substance use type: does not use ROS ROS Narrative Constitutional: Reports fatigue and anorexia. Denies fever, chills, and change in weight Eyes: Denies blurry vision, change in eye color, change in vision, discharge from eye(s), double vision, erythema, eye pain, loss of vision or other HEENT: Denies abnormal hearing, dysphagia, ear pain, epistaxis, headache(s), hearing loss, nasal congestion, nasal discharge, post nasal drip, sinus pressure, sore throat or other Cardiovascular: Denies chest pain or palpitations. Respiratory/Chest: Reports productive cough of thick sputum. Reports shortness of breath. Gastrointestinal: Denies abdominal pain, coffee ground emesis, constipation, diarrhea, dyspepsia, hematemesis, hematochezia, loose stools, melena, nausea, vomiting or other Genitourinary: Denies burning urination, difficulty urinating, dysuria, hematuria, nocturia, urinary frequency, urinary hesitancy, urinary incontinence, urinary urgency or other Musculoskeletal: Denies arthralgias, back pain, joint pain, joint stiffness, joint swelling, myalgias, neck pain or other Neurologic: Reports syncope. Denies abnormal gait, abnormal speech, confusion, disequilibrium, dizziness, focal weakness, headache(s), numbness, paresthesias, seizure-like activity, seizures, tingling, tremor(s) or other Psychiatric: Denies anxiety, depression, homicidal ideation, suicidal ideation or other Endocrinology: Denies change in body appearance, cold intolerance, excessive sweating, heat intolerance, polydipsia, polyuria or other Hematologic/Lymphatic: Denies anemia, easy bleeding, easy bruising, lymphadenopathy or other Integumentary: Denies rashes Allergic/Immunologic: Denies rhinitis, hives, eczema, asthma or other Vital Signs Vital Signs Vital Signs: 06/28/21 14:30 06/28/21 16:07 06/28/21 16:24 Temperature 97 F L 97.1 F L Temperature Source Temporal Oral Pulse Rate 111 H 88 111 H Respiratory Rate 18 20 H 23 H Respiratory Effort Short of Breath Respiratory Depth Normal Respiratory Pattern Normal Tachypnea Blood Pressure 111/72 134/72 H Blood Pressure Mean 85 92 Pulse Ox 92 95 Oxygen Delivery Method Room Air Room Air Oxygen Flow Rate (L/min) 06/28/21 17:40 06/28/21 18:00 06/28/21 18:19 Temperature Temperature Source Pulse Rate 104 H 109 H Respiratory Rate 20 H 26 H Respiratory Effort Short of Breath Respiratory Depth Respiratory Pattern Tachypnea Tachypnea Blood Pressure Blood Pressure Mean Pulse Ox 93 Oxygen Delivery Method Room Air Room Air Oxygen Flow Rate (L/min) 92 06/28/21 20:11 06/28/21 20:52 Temperature Temperature Source Pulse Rate 106 H Respiratory Rate 23 H Respiratory Effort Short of Breath Labored Respiratory Depth Shallow Respiratory Pattern Tachypnea Blood Pressure Blood Pressure Mean Pulse Ox 91 90 Oxygen Delivery Method Nasal Cannula Nasal Cannula Oxygen Flow Rate (L/min) 2 3 Weight Weight: 72.121 kg Body Mass Index (BMI) 38.3 Physical Exam Narrative Physical exam: General: Well-nourished, well-developed. Head: Normocephalic, atraumatic, no tenderness Eyes: PERRLA, EOMI ENT, no trauma, moist mucous membranes, no rhinorrhea Neck: Nontender, full range of motion, no spinal tenderness, deformities, step- off CVS: Tachycardia. S1-S2 present. No murmur, gallop or rub. Respiratory : Tachypnea. chest wall nontender. Wheezes and rhonchi. Abdomen: Soft, nontender, nondistended, normal bowel sounds, no masses : Deferred Back: Nontender, no CVA tenderness, no midline spinal tenderness, deformities, step-offs Extremities: Nontender full range of motion, no trauma Skin: Normal color, no trauma, abrasions Neuro: Alert, oriented, cranial nerves II through XII grossly intact. Psychiatry: Normal mood. Normal affect. Not depressed. Not anxious. Results Lab / Micro Data Result Diagrams: 06/28/21 16:07 06/28/21 16:07 Labs: Laboratory Results - last 24 hr 06/28/21 16:07: WBC 15.0 H, RBC 5.07, Hgb 14.6, Hct 44.8, MCV 88.4, MCH 28.8, MCHC 32.6, RDW Std Deviation 37.8, RDW Coeff of Raeann 11.9, Plt Count 303, MPV 10.5, Immature Gran % (Auto) 0.600, Neut % (Auto) 69.9, Lymph % (Auto) 18.2 L, Nance % (Auto) 6.2, Eos % (Auto) 4.7, Baso % (Auto) 0.4, Absolute Neuts (auto) 10.5 H, Absolute Lymphs (auto) 2.73, Nucleated RBC % 0 06/28/21 16:07: D-Dimer Quant (PE/DVT) <= 0.27 06/28/21 16:07: Sodium 139, Potassium 4.1, Chloride 104, Carbon Dioxide 27.0, Anion Gap 8, BUN 10, Creatinine 0.67, Estim Creat Clear Calc 133.43, Est GFR (MDRD) Af Amer 129, Est GFR (MDRD) Non-Af 107, BUN/Creatinine Ratio 15.0, Glucos e 109 H, Calcium 9.2, Total Bilirubin 0.60, AST 30, ALT 43, Alkaline Phosphatase 48, Total Protein 7.9, Albumin 3.3, Globulin 4.6 H, Albumin/Globulin Ratio 0.7 L 06/28/21 16:07: Lactic Acid 1.1 Micro: Microbiology 06/28/21 16:00 Nasal Secretion SARS-CoV-2 Antigen (Rapid) - Final Radiology Impression Brain CT 06/28/21 15:50 IMPRESSION: No acute intracranial abnormality. Electronically Signed: Nic Lama MD at 17:36 EDT Tel , Service support , Chest X-Ray 06/28/21 15:50 IMPRESSION: No acute radiographic abnormalities. Electronically Signed: Nic Lama MD at 17:35 EDT Tel , Service support , Assessment & Plan Assessment/Plan (1) Syncope: QUALIFIERS: Syncope type: unspecified Qualified Code(s): R55 - Syncope and collapse (2) SOB (shortness of breath): (3) Wheezes: PLAN: Syncope EKG independently reviewed showed sinus tachycardia. Impression of chest x-ray by radiologist: No radiographic evidence of acute card iopulmonary disease. Actual chest x-ray image was independently reviewed. I agree with radiologist interpretation. Echocardiogram and CTA chest ordered. Orthostatic vitals per protocol Acute respiratory failure/sepsis secondary to pneumonia Gram-positive, gram-negative, atypical or viral. SIRS criteria: White, more than 20; pulse rate of more than 90; white count of more than 12,000. Source of infection: Lungs. Radiologist impression of chest CT: Bilateral groundglass opacity suspicious for pneumonia. Consider typical and atypical etiologies. Organ dysfunction: Respiratory failure. Required nasal cannula in nonrebreather to maintain oxygen saturation of at least 90. Of note patient was on antibiotics for pneumonia outpatient with last dose left. Lactic acid 1.1 Incentive spirometer and to physiotherapy ordered. Mucinex for cough. [id number] breathing treatment. Solu-Medrol given at emergency department and continued. Levaquin ordered. Outpatient patient was on amoxicillin and Z-Garo with 1 dose of each of the above medicines left. We will get Legionella urine antigen and strep pneumoniae urine antigen. PCR Covid ordered. Mycoplasma antibody ordered. Histoplasmosis antibody ordered. Tobacco abuse: Counseled. DVT prophylaxis: Subcutaneous Lovenox ordered. Charges/Coding Visit Charges OBSV E&M: 91581 Initial observation care L3
--- NOTE | 2021-06-28 21:11 | ECHOCS_ITS ---
Reason For Study: Dyspnea/SOB Procedure This was a 2D Doppler, Color Flow transthoracic echocardiogram. The study was technically difficult. Contrast injection was performed. Exam performed portable in patient room. Left Ventricle Normal LV size. Left ventricular systolic function is normal. The estimated ejection fraction is 55 %. Normal diastology for age. No regional wall motion abnormalities noted. Right Ventricle Normal RV size. Normal systolic function. Atria Normal left atrium. Normal right atrium. Mitral Valve Normal mitral valve. Tricuspid Valve Normal tricuspid valve. Aortic Valve Normal aortic valve. Trisinus/trileaflet aortic valve. Pulmonic Valve The pulmonic valve is not well visualized. Great Vessels Normal aortic root. The pulmonary artery is normal size. Normal inferior vena cava. Pericardium/Pleural No pericardial effusion. Medication Diluted definity 2ml given slow IV push to enhance endocardial definition. MMode/2D Measurements & Calculations LVIDd: 4.6 cm IVSd: 0.85 cm LA dimension: 2.8 cm LVIDs: 3.2 cm LVPWd: 0.65 cm FS: 31.1 % LAV(MOD-bp): 25.9 ml LVAd ap4: 26.9 cm2 SV(MOD-sp4): 48.6 ml LAV(MOD-bp) Indexed: 16.2 ml/m2 LVLd ap4: 7.2 cm LAV(MOD-sp2): 25.1 ml EDV(MOD-sp4): 84.0 ml LAV(MOD-sp4): 25.5 ml EDV(sp4-el): 84.8 ml LVAs ap4: 15.5 cm2 LVLs ap4: 5.5 cm ESV(MOD-sp4): 35.4 ml ESV(sp4-el): 36.9 ml EF(MOD-sp4): 57.8 % EF(sp4-el): 56.6 % SV(sp4-el): 48.0 ml LA A4 area: 11.8 cm2 RA A4 area: 9.2 cm2 Time Measurements MV dec time: 0.20 sec Doppler Measurements & Calculations MV E max burt: 99.7 cm/sec Lat Peak E' Burt: 17.3 cm/sec Med Peak E' Burt: 12.0 cm/sec MV A max burt: 57.4 cm/sec E/E' lat: 5.8 E/E' med: 8.3 MV E/A: 1.7 MV V2 max: 97.1 cm/sec MV P1/2t max burt: 97.1 cm/sec Ao V2 max: 121.5 cm/sec MV max P.8 mmHg MV P1/2t: 57.6 msec Ao max P.9 mmHg MV V2 mean: 53.7 cm/sec MV mean P.4 mmHg MV dec slope: 493.6 cm/sec2 MV V2 VTI: 19.2 cm MVA(P1/2t): 3.8 cm2 LV V1 max: 105.7 cm/sec PA V2 max: 106.9 cm/sec LV V1 max P.5 mmHg ECHO/Echo Complete W/ Contrast Interpretation Summary Normal LV size. Left ventricular systolic function is normal. The estimated ejection fraction is 55 %. Structurally normal valves. Contrast injection was performed. Ordering Physician: Amilcar sEpinosa Referring Physician: Ian Mon Performed By: Bo Chung RCS
--- NOTE | 2021-06-28 21:16 | CT_ITS ---
EXAM: CT ANGIOGRAPHY CHEST WITHOUT AND WITH INTRAVENOUS CONTRAST CLINICAL INDICATION: Syncope TECHNIQUE: Helically acquired angiography images were obtained of the chest without and with intravenous contrast. This CT exam was performed using one or more of the following dose reduction techniques: automated exposure control, adjustment of the mA and/or kV according to patient size, and/or use of iterative reconstruction technique. This report was created using [employer] report generation technology. MIP reconstructed images were created and reviewed. CONTRAST: IV 75mL [id number] COMPARISON: None. FINDINGS: PULMONARY ARTERIES: Unremarkable. Normal in caliber. No evidence of pulmonary embolism. AORTA: Unremarkable. Normal in caliber. No evidence of dissection. GREAT VESSELS OF AORTIC ARCH: Unremarkable. Normal in caliber. No evidence of dissection. LUNGS AND PLEURAL SPACES: Mild bilateral groundglass opacities suspicious for pneumonia. No mass. No pleural effusion or thickening. HEART: Unremarkable. Heart size is normal. No pericardial effusion. No signs of right heart strain, ratio of right ventricle to left ventricle measures less than 1. MEDIASTINUM: Unremarkable. No mediastinal or hilar adenopathy. Esophagus is unremarkable. No hiatal hernia. THYROID: Unremarkable. No thyroid lesions. BONES/JOINTS: Unremarkable. No suspicious lytic or blastic abnormality. CT/CTA Chest W/WO Contrast IMPRESSION: Bilateral groundglass opacity suspicious for pneumonia. Consider typical and atypical etiologies. Electronically Signed: Megan Owens MD at 22:16 EDT Tel , Service support ,
[2021-06-28] MEDS: guaiFENesin 600 MG Tablet PO (22:50)
[2021-06-29] VITALS (18 sets, daily range): BP systolic 99–129; BP diastolic 56–78; PULSE 91–118; RESP 16–26; TEMP 36.3–36.8; O2SAT 93–97
[2021-06-29] MEDS: levoFLOXacin IV 750 MG/150 ML BAG 100 MG IV ×2 (00:25→22:01)
[2021-06-29] MEDS: 0.9% Normal Saline 1,000 ML 75 ML IV (00:28)
[2021-06-29] MEDS: 0.9% Saline Lock 10 ML Syringe IV ×3 (00:29→22:01)
--- NOTE | 2021-06-29 03:13 | PCS.PANDOC ---
PANDEMIC DOCUMENTATION INITIATED: Date: 05/04/2021 Time: 190
[2021-06-29] MEDS: Benzonatate 100 MG Capsule PO (03:41)
[2021-06-29 06:07] LABS: Absolute Neutrophil Count 10.2 X10^3/uL (2.0-7.7); Basophil# 0.02 X10^3/uL; Basophil% 0.2 % (0-1); Hemoglobin 14.4 g/dL (12.0-15.0); Lymphocyte % 10.2 % (19-41); Mean Corp Hgb Conc 32.7 g/dL (32-36); Mean Corpuscular Hgb 28.5 pg (27.0-32.0); Mean Corpuscular Volume 87.1 fL (81-99); Mean Platelet Vol. 10.4 fl (6.2-12.0); Monocyte# 0.23 X10^3/uL; NRBC Flagged by Analyzer 0 % (0-5); Neutrophil % 86.9 % (47-70); Platelet Count 327 K/mm3 (150-450); RBC Distribution Width CV 11.7 % (11.6-14.6); RBC Distribution Width SD 37.2 fl (35.1-43.9); Red Blood Count 5.05 M/mm3 (4.2-5.4); White Blood Count 11.7 K/mm3 (4.4-11.0)
[2021-06-29 06:26] LABS: Anion Gap 6 (5-15); BUN 11 mg/dL (7-18); BUN/Creat Ratio 17.1 RATIO (10-20); Calcium,Total 9.2 mg/dL (8.5-10.1); Chloride 106 mmol/L (98-107); Creatinine, Serum 0.64 mg/dL (0.55-1.02); EST Glomerular Filtration Rate 111 mL/min (>60); Est Glom Filt Rate - Afr Amer 135 mL/min (>60); Estimated Creatinine Clearance 139.08 ml/min; Glucose 150 mg/dL (74-106); Potassium 4.7 mmol/L (3.5-5.1); Sodium Level 136 mmol/L (136-145)
[2021-06-29] MEDS: MethylPREDNISolone 125 MG/2 ML Vial 60 MG IV (06:27)
[2021-06-29] MEDS: Ipratropium/Albuterol Sulfate 3 ML AMPUL.NEB INHALATION ×3 (07:49→15:33)
[2021-06-29] MEDS: guaiFENesin 600 MG Tablet PO (08:48)
[2021-06-29] MEDS: Fluticasone 0.05% 1 SPRAY NASAL.SRY 2 SPRAY NASAL (08:48)
[2021-06-29] MEDS: Enoxaparin 40 MG/0.4 ML Syringe SC (08:49)
[2021-06-29 09:56] LABS: Ferritin 104 ng/mL (8-252); LDH 237 U/L (84-246)
[2021-06-29 09:58] LABS: CPK Total, Creatine Kinase 72 U/L (26-192)
[2021-06-29 10:05] LABS: Procalcitonin < 0.04 ng/mL (0.00-0.09)
--- NOTE | 2021-06-29 10:37 | NURSING ---
Report called to BETHANIE Thompson on [facility]. Patient ready to transfer to [id number] at this time.
--- NOTE | 2021-06-29 10:50 | PN.HOSP_ITS ---
Subjective Subjective Patient complaining of 1 week of generalized flulike symptoms including weakness, loss of appetite, worsening of shortness of breath, bilateral chest pain mainly pleuritic in nature, headache, sinus fullness and sore throat. Patient's 2 younger kids at the age of 13 and 15 years old also had mild sniffles but they are not as bad. Patient is not vaccinated. She had 2 outpatients Covid test negative and had tested negative here. Discussed with ID Objective Data Objective Data Vital Signs: Vital Signs Temp Pulse Resp BP Pulse Ox 98.3 F 101 H 20 H 112/56 L 96 06/29/21 08:44 06/29/21 09:00 06/29/21 08:44 06/29/21 08:44 06/29/21 09:00 Oxygen Flow Rate (L/min) 4 Oxygen Delivery Method Nasal Cannula Weight: 158 lb 5 oz Body Mass Index (BMI) 38.1 Intake & Output: Intake and Output for Last 24 Hours 06/27/21 06/28/21 06/29/21 23:59 23:59 23:59 Intake Total 100 / 100 1173.75 / 1173.75 Balance 100 / 100 1173.75 / 1173.75 Lab / Micro Data Result Diagrams: 06/29/21 05:45 06/29/21 05:45 Labs: Laboratory Results - last 24 hr 06/28/21 16:07: WBC 15.0 H, RBC 5.07, Hgb 14.6, Hct 44.8, MCV 88.4, MCH 28.8, MCHC 32.6, RDW Std Deviation 37.8, RDW Coeff of Raeann 11.9, Plt Count 303, MPV 10.5, Immature Gran % (Auto) 0.600, Neut % (Auto) 69.9, Lymph % (Auto) 18.2 L, [place] % (Auto) 6.2, Eos % (Auto) 4.7, Baso % (Auto) 0.4, Absolute Neuts (auto) 10.5 H, Absolute Lymphs (auto) 2.73, Nucleated RBC % 0 06/28/21 16:07: D-Dimer Quant (PE/DVT) <= 0.27 06/28/21 16:07: Sodium 139, Potassium 4.1, Chloride 104, Carbon Dioxide 27.0, Anion Gap 8, BUN 10, Creatinine 0.67, Estim Creat Clear Calc 133.43, Est GFR (MDRD) Af Amer 129, Est GFR (MDRD) Non-Af 107, BUN/Creatinine Ratio 15.0, Glucose 109 H, Calcium 9.2, Total Bilirubin 0.60, AST 30, ALT 43, Alkaline Phosphatase 48, Total Protein 7.9, Albumin 3.3, Globulin 4.6 H, Albumin/Globulin Ratio 0.7 L 06/28/21 16:07: Lactic Acid 1.1 06/28/21 23:40: COVID-19 ([place]) Not Detected 06/29/21 05:45: Sodium 136, Potassium 4.7, Chloride 106, Carbon Dioxide 24.0, Anion Gap 6, BUN 11, Creatinine 0.64, Estim Creat Clear Calc 139.08, Est GFR (MDRD) Af Amer 135, Est GFR (MDRD) Non-Af 111, BUN/Creatinine Ratio 17.1, Glucose 150 H, Calcium 9.2 06/29/21 05:45: WBC 11.7 H, RBC 5.05, Hgb 14.4, Hct 44.0, MCV 87.1, MCH 28.5, MCHC 32.7, RDW Std Deviation 37.2, RDW Coeff of Raeann 11.7, Plt Count 327, MPV 10.4, Immature Gran % (Auto) 0.700, Neut % (Auto) 86.9 H, Lymph % (Auto) 10.2 L, [place] % (Auto) 2.0, Eos % (Auto) 0.0, Baso % (Auto) 0.2, Absolute Neuts (auto) 10.2 H, Absolute Lymphs (auto) 1.20, Nucleated RBC % 0 06/29/21 05:45: Ferritin 104, Lactate Dehydrogenase 237, C-React Prot Ext Range 83.20 H 06/29/21 05:45: Total Creatine Kinase 72 06/29/21 05:45: Procalcitonin < 0.04 Micro: Microbiology 06/29/21 00:40 Interface Orders Gram Stain - Final 06/29/21 06:40 Urine, Clean Catch Legionella Antigen - Final 06/29/21 06:40 Urine, Clean Catch Streptococcus pneumoniae Antigen (M - Final 06/28/21 16:00 Nasal Secretion SARS-CoV-2 Antigen (Rapid) - Final Radiography Diagnostic Testing: Radiology Impression Brain CT 06/28/21 15:50 IMPRESSION: No acute intracranial abnormality. Electronically Signed: Nic Lama MD at 17:36 EDT Tel , Service support , Chest X-Ray 06/28/21 15:50 IMPRESSION: No acute radiographic abnormalities. Electronically Signed: Nic Lama MD at 17:35 EDT Tel , Service support , Chest CTA 06/28/21 21:16 IMPRESSION: Bilateral groundglass opacity suspicious for pneumonia. Consider typical and atypical etiologies. Electronically Signed: Megan Owens MD at 22:16 EDT Tel , Service support , Physical Exam Narrative General: Alert, Oriented x3, Cooperative HEENT: Atraumatic, PERRLA, EOMI, Normocephalic Oral: No Gingival or Mucosal Lesions/ Ulcerations Neck: Mild tenderness over submandibular region. No enlarged lymph nodes palpable. Supple, No JVD Lungs: Air entry diminished in bilateral lung bases. Mild bilateral expiratory wheezing. Cardiovascular: Regular rate, Regular Rhythm, Normal S1, Normal S2, No murmurs Abdomen: Bowel Sounds Present, Soft, Non Tender, Non-Distended : No renal angle tenderness. No suprapubic tenderness. Extremities: No edema, Capillary Refill Less than 3 Seconds Skin: No rashes, No breakdown Musculoskeletal: No Tenderness to Palpation of Joints or Extremities Neurological: Cranial nerves II-XII grossly intact, DTR 2+/4 and Symmetrical, Neuro grossly intact Psych/Mental Status: Normal Affect, Appropriate. Assessment & Plan Assessment/Plan (1) Syncope: QUALIFIERS: Syncope type: unspecified Qualified Code(s): R55 - Syncope and collapse (2) SOB (shortness of breath): (3) Wheezes: PLAN: This 36-year-old female admitted with flulike symptoms with fever since 06/22. 1. Syncope most likely respiratory, sepsis or hypoxia: Twelve-lead EKG shows sinus tachycardia. CTA chest shows no PE but bilateral groundglass opacity suggestive of viral pneumonia. Orthostatic vitals negative. 2D echo was done reported EF 55% with normal LV systolic function. Structurally normal valves. 2. Acute respiratory failure due to bilateral viral pneumonia with high suspicion of COVID-19 (tachycardia, leukocytosis with left shift but normal lactic acid): Discussed with ID and we agreed that we we will put her on Covid isolation to call on Decadron. IV Solu-Medrol discontinued. Respiratory virus positive of rhinovirus. She denies any chronic lung disease like asthma COPD. She smokes 1 pack in 2 days since age of 16. Advised quitting smoking. Lactic acid 1.1. Incentive spirometry and Pep. On Mucinex. Urinary antigens are negative. Gram stain and sputum culture shows 1+ gram-positive cocci and rods. Tobacco abuse: Counseled. DVT prophylaxis: Subcutaneous Lovenox ordered. Charges/Coding Visit Charges Inpatient E&M: 48624 Subs Hosp L2
[2021-06-29] MEDS: dexAMETHasone 4 MG Tablet 6 MG PO (11:18)
--- NOTE | 2021-06-29 14:00 | PCM.CONS.GEN ---
Assessment & Plan Assessment/Plan (1) Hypoxia: (2) Acute upper respiratory infection: PLAN: covid neg x2 here. Sx started 06/22. Kids at home also with URI. Resp pcr panel pending. In iso, on dex. If pcr panel is neg, would start remdesivir. Will follow, thank you, d/w Dr. Cordon. Encouraged her and kids to get vaccine once past this illness. HPI Consult Data Date of Consult: 06/29/21 HPI Narrative HPI Narrative: KHAI HOYT, is a 36 F who presented with sx starting 06/22. C/o chills, cough, SOB, congestion, headache, diarrhea, mild aches. No change in taste and smell. Kids 13 and 15 y/o at home also with URI. All unvaccinated. No sputum. Came to ED, admitted on steroids and levaquin. Not feeling any better today. Full ROS performed and neg except as noted above. PFSH Medical History Kidney disease Kidney stones Smoker Medical History no medical history Home Medications naproxen [Naprosyn] 500 mg PO BID PRN #20 tab 04/20/21 [Rx Last Taken Unknown] melatonin 5 mg PO QHS 06/28/21 [History Last Taken Unknown] albuterol sulfate 2 puff INHALATION Q4H PRN 06/29/21 [History Last Taken Unknown] amoxicillin 500 mg PO BID 06/29/21 [History Last Taken Unknown] benzonatate 100 mg PO TID PRN 06/29/21 [History Last Taken Unknown] fluticasone propionate 2 spray INTRANASAL DAILY 06/29/21 [History Last Taken Unknown] Allergy/AdvReac Type Severity Reaction Status Date / Time hydrocodone bitartrate Allergy Hives Verified 04/20/21 14:16 [From [place]] Family History Other Heart disease Surgical History History of hysterectomy Social History household members: none Smoking Status: Current every day smoker tobacco type: cigarettes alcohol intake: current alcohol intake frequency: other substance use type: does not use Physical Exam Const alert and oriented x3 Constitutional Narrative: ill appearing General Appearance: cooperative Exam Limitations: no limitations HEENT normocephalic and head/scalp atraumatic Eyes PERRL and EOMs intact bilaterally Neck supple and No nodes Resp Auscultation: wheezes and diminished lung sounds Cardio regular rate and regular rhythm GI normal to inspection, nondistended, normoactive bowel sounds Extremity no clubbing, cyanosis or edema Skin no rashes or lesions noted Neuro CN's II-XII intact bilaterally Medical Records Data Medical Nutrition Assessment Dietitian: Malnutrition Criteria Met Start: 06/29/21 13:18 Freq: Status: Active Protocol: Document 06/29/21 13:18 SLA (Rec: 06/29/21 13:18 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 Problem Recommendation Dietitian Recommendations/Changes Will continue liberal regular diet d/t signs/symptoms of malnutrition Lab / Micro Data Result Diagrams: 06/29/21 05:45 06/29/21 05:45 Labs: Laboratory Results - last 24 hr 06/28/21 16:07: WBC 15.0 H, RBC 5.07, Hgb 14.6, Hct 44.8, MCV 88.4, MCH 28.8, MCHC 32.6, RDW Std Deviation 37.8, RDW Coeff of Raeann 11.9, Plt Count 303, MPV 10.5, Immature Gran % (Auto) 0.600, Neut % (Auto) 69.9, Lymph % (Auto) 18.2 L, [place] % (Auto) 6.2, Eos % (Auto) 4.7, Baso % (Auto) 0.4, Absolute Neuts (auto) 10.5 H, Absolute Lymphs (auto) 2.73, Nucleated RBC % 0 06/28/21 16:07: D-Dimer Quant (PE/DVT) <= 0.27 06/28/21 16:07: Sodium 139, Potassium 4.1, Chloride 104, Carbon Dioxide 27.0, Anion Gap 8, BUN 10, Creatinine 0.67, Estim Creat Clear Calc 133.43, Est GFR (MDRD) Af Amer 129, Est GFR (MDRD) Non-Af 107, BUN/Creatinine Ratio 15.0, Glucose 109 H, Calcium 9.2, Total Bilirubin 0.60, AST 30, ALT 43, Alkaline Phosphatase 48, Total Protein 7.9, Albumin 3.3, Globulin 4.6 H, Albumin/Globulin Ratio 0.7 L 06/28/21 16:07: Lactic Acid 1.1 06/28/21 23:40: COVID-19 ([place]) Not Detected 06/29/21 05:45: Sodium 136, Potassium 4.7, Chloride 106, Carbon Dioxide 24.0, Anion Gap 6, BUN 11, Creatinine 0.64, Estim Creat Clear Calc 139.08, Est GFR (MDRD) Af Amer 135, Est GFR (MDRD) Non-Af 111, BUN/Creatinine Ratio 17.1, Glucose 150 H, Calcium 9.2 06/29/21 05:45: WBC 11.7 H, RBC 5.05, Hgb 14.4, Hct 44.0, MCV 87.1, MCH 28.5, MCHC 32.7, RDW Std Deviation 37.2, RDW Coeff of Raeann 11.7, Plt Count 327, MPV 10.4, Immature Gran % (Auto) 0.700, Neut % (Auto) 86.9 H, Lymph % (Auto) 10.2 L, [place] % (Auto) 2.0, Eos % (Auto) 0.0, Baso % (Auto) 0.2, Absolute Neuts (auto) 10.2 H, Absolute Lymphs (auto) 1.20, Nucleated RBC % 0 06/29/21 05:45: Ferritin 104, Lactate Dehydrogenase 237, C-React Prot Ext Range 83.20 H 06/29/21 05:45: Total Creatine Kinase 72 06/29/21 05:45: Procalcitonin < 0.04 Micro: Microbiology 06/29/21 00:40 Interface Orders Gram Stain - Final 06/29/21 06:40 Urine, Clean Catch Legionella Antigen - Final 06/29/21 06:40 Urine, Clean Catch Streptococcus pneumoniae Antigen (M - Final 06/28/21 16:00 Nasal Secretion SARS-CoV-2 Antigen (Rapid) - Final Radiology Impression Brain CT 06/28/21 15:50 IMPRESSION: No acute intracranial abnormality. Electronically Signed: Nic Lama MD at 17:36 EDT Tel , Service support , Chest X-Ray 06/28/21 15:50 IMPRESSION: No acute radiographic abnormalities. Electronically Signed: Nic Lama MD at 17:35 EDT Tel , Service support , Echocardiogram 06/28/21 21:11 Interpretation Summary Normal LV size. Left ventricular systolic function is normal. The estimated ejection fraction is 55 %. Structurally normal valves. Contrast injection was performed. Ordering Physician: Amilcar Espinosa Referring Physician: Ian Mon Performed By: Bo Chung RCS Chest CTA 06/28/21 21:16 IMPRESSION: Bilateral groundglass opacity suspicious for pneumonia. Consider typical and atypical etiologies. Electronically Signed: Megan Owens MD at 22:16 EDT Tel , Service support ,
[2021-06-29] MEDS: guaiFENesin/D-Methorphan TAB.SR.12H 1 TABLET PO (22:01)
[2021-06-29] MEDS: MELATONIN 10 MG TABLET 5 MG PO (22:01)
[2021-06-29] MEDS: Enoxaparin 40 MG/0.4 ML Syringe 30 MG SC (22:11)
[2021-06-30 02:22] VITALS: BP 112/68; PULSE 89; RESP 16; TEMP 36.5; O2SAT 97
[2021-06-30] MEDS: Ipratropium/Albuterol Sulfate 3 ML AMPUL.NEB INHALATION (07:38)
[2021-06-30 07:39] VITALS: PULSE 87; RESP 17; O2SAT 93
[2021-06-30 08:00] VITALS: BP 107/66; PULSE 87; RESP 18; TEMP 36.4; O2SAT 92; O2SAT 93
[2021-06-30] MEDS: guaiFENesin/D-Methorphan TAB.SR.12H 1 TABLET PO (08:08)
[2021-06-30] MEDS: dexAMETHasone 4 MG Tablet 6 MG PO (08:08)
[2021-06-30] MEDS: Enoxaparin 40 MG/0.4 ML Syringe 30 MG SC (08:08)
[2021-06-30 09:18] VITALS: O2SAT 93
--- NOTE | 2021-06-30 10:16 | PCM.DC ---
Discharge Instructions Diet Discharge Diet: No restrictions Activity Weight Bearing Status: Weight bearing as tolerated Dressing / Incision Call your doctor if you observe: Fever of 101 or Higher, Coldness, Increased Pain, Numbness or Tingling, Change in Color, Inability to urinate, Inability to have a bowel movement, Using more than 1 pad per hour, Shortness of breath, Dizziness, Fainting spells, Swelling in the ankles, Chest pain, Prolonged hiccupping, Increased palpitations (irregular heartbeat), Calf discomfort and Uncontrolled pain Follow Up Care Test Results: Test results from this visit will be discussed in further detail at your follow-up appointment, if applicable. Discharge Plan Admission Admit Date/Time: 06/28/21 20:53 Primary Reason for Your Visit: acute rhino viral pneumonia Attending Provider: Jeffery Cordon Primary Care Provider: Ian Mon Consulting Providers: Warren Atkins Discharge Orders/Prescriptions Prescriptions: New Mucus DM 30-600 mg Tablet Extended Release 12 Hr 1 tab PO BID Qty: 14 RF: 0 Continued naproxen [Naprosyn] 500 mg tablet 500 mg PO BID PRN (Reason: pain) Qty: 20 RF: 0 melatonin 5 mg Tablet 5 mg PO QHS RF: 0 albuterol sulfate 90 mcg/actuation HFA aerosol inhaler 2 puff INHALATION Q4H PRN (Reason: Shortness Of Breath Or Wheezing) RF: 0 benzonatate 100 mg capsule 100 mg PO TID PRN (Reason: Cough) RF: 0 fluticasone propionate 50 mcg/actuation spray,suspension 2 spray INTRANASAL DAILY RF: 0 Discontinued amoxicillin 500 mg capsule 500 mg PO BID RF: 0 Referrals / Follow Up: Ian Mon MD [Primary Care Provider] - In 1 Week (May need Chantix for smoking cessation ) Peter Poe MD [STAFF PHYSICIAN] - Within 1 Month (For PFT. Chronic cough and wheezing and a smoking history Of 20 pack years) Disposition Disposition (needs filled in before D/C Order can be placed): Home, Self Care
--- NOTE | 2021-06-30 10:22 | DS.PCM_ITS ---
Providers Date of Admission: 06/28/21 Primary Care Physician: Dr. Ian Mon MD Consultations 06/29/21 09:31 Consult: Infectious Disease Routine Consulting Provider: Warren Atkins Reason for Consult: atypical pneumonia with covid high suspicion EMERGENT Consult: No MD Notified: Yes Date Notified: 06/29/21 Time Notified: 09:32 Method of Notification: Verbal Reason For Visit: SHORTNESS OF BREATH Diagnosis Discharge Diagnosis (1) Syncope: Status: Acute Code(s): R55 - Syncope and collapse Qualifiers: Syncope type: unspecified Qualified Code(s): R55 - Syncope and collapse (2) SOB (shortness of breath): Status: Acute Code(s): R06.02 - Shortness of breath (3) Wheezes: Status: Acute Code(s): R06.2 - Wheezing Medications at Discharge Home Medications naproxen [Naprosyn] 500 mg PO BID PRN #20 tab 04/20/21 melatonin 5 mg PO QHS 06/28/21 albuterol sulfate 2 puff INHALATION Q4H PRN 06/29/21 benzonatate 100 mg PO TID PRN 06/29/21 fluticasone propionate 2 spray INTRANASAL DAILY 06/29/21 cephalexin 500 mg PO TID 7 Days #15 tab 06/30/21 dextromethorphan-guaifenesin [Mucus DM] 1 tab PO BID #14 tab 06/30/21 Hospital Course Summary of Care Provided Hospital Course: This 36-year-old female admitted with flulike symptoms with fever, cough since 06/22. 1. Syncope most likely respiratory, sepsis or hypoxia: Twelve-lead EKG shows sinus tachycardia. CTA chest shows no PE but bilateral groundglass opacity suggestive of viral pneumonia. Orthostatic vitals negative. 2D echo was done reported EF 55% with normal LV systolic function. Structurally normal valves. 2. Acute respiratory failure due to bilateral pneumonia secondary to rhino virus with alphahemolytic, step viridan bacterial superinfection (tachycardia, leukocytosis with left shift but normal lactic acid): ID was consulted. Initially patient was put on Covid isolation but later on when respiratory panel came positive for rhinovirus isolation was changed to droplet. Decadron discontinued. She denies any chronic lung disease like asthma COPD. She smokes 1 pack in 2 days since age of 16. Advised quitting smoking and she talk to her PCP for Chantix. Advised to follow with pulmonary clinic for outpatient PFT as she has 20 pack years of smoking. Lactic acid 1.1. Incentive spirometry and Pep Urinary antigens are negative. Gram stain shows alphahemolytic Streptococcus 2+. Patient is discharged on Ke flex for 5 more days to complete total of 7 days. Patient discharged on Mucinex DM. Tobacco abuse: Counseled. DVT prophylaxis: Subcutaneous Lovenox ordered. Physical Exam Narrative Patient hypoxia resolved. No shortness of breath. Mild bilateral wheezing. Patient decided to quit smoking. General: Alert, Oriented x3, Cooperative HEENT: Atraumatic, PERRLA, EOMI, Normocephalic Oral: No Gingival or Mucosal Lesions/ Ulcerations Neck: Mild tenderness over submandibular region. No enlarged lymph nodes palpable. Supple, No JVD Lungs: Air entry diminished in bilateral lung bases. Mild bilateral expiratory wheezing. No tachypnea or hypoxia. Cardiovascular: Regular rate, Regular Rhythm, Normal S1, Normal S2, No murmurs Abdomen: Bowel Sounds Present, Soft, Non Tender, Non-Distended : No renal angle tenderness. No suprapubic tenderness. Extremities: No edema, Capillary Refill Less than 3 Seconds Skin: No rashes, No breakdown Musculoskeletal: No Tenderness to Palpation of Joints or Extremities Neurological: Cranial nerves II-XII grossly intact, DTR 2+/4 and Symmetrical, Neuro grossly intact Psych/Mental Status: Normal Affect, Appropriate. 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 Problem Recommendation Dietitian Recommendations/Changes Will continue liberal regular diet d/t signs/symptoms of malnutrition Weight / BMI Weight Weight: 158 lb 4.988 oz Body Mass Index (BMI) 38.1 ABG / Lab / Microbiology Data Result Diagrams: 06/29/21 05:45 06/29/21 05:45 Microbiology: Microbiology 06/29/21 00:40 Interface Orders Gram Stain - Final 06/29/21 00:40 Interface Orders Respiratory Culture - Preliminary Alpha Hemolytic Streptococcus 06/29/21 11:27 Mucosa - Nasopharyngeal Respiratory Panel (PCR) - Final Rhinovirus 06/29/21 06:40 Urine, Clean Catch Legionella Antigen - Final 06/29/21 06:40 Urine, Clean Catch Streptococcus pneumoniae Antigen (M - Final 06/28/21 16:00 Nasal Secretion SARS-CoV-2 Antigen (Rapid) - Final Radiography Diagnostic Testing: Radiology Impression Echocardiogram 06/28/21 21:11 Interpretation Summary Normal LV size. Left ventricular systolic function is normal. The estimated ejection fraction is 55 %. Structurally normal valves. Contrast injection was performed. Ordering Physician: Amilcar Espinosa Referring Physician: Ian Mon Performed By: Bo Chung RCS D/C Instructions Discharge Diet: No restrictions Weight Bearing Status: Weight bearing as tolerated Call your doctor if you observe: Fever of 101 or Higher, Coldness, Increased Pain, Numbness or Tingling, Change in Color, Inability to urinate, Inability to have a bowel movement, Using more than 1 pad per hour, Shortness of breath, Dizziness, Fainting spells, Swelling in the ankles, Chest pain, Prolonged hiccupping, Increased palpitations (irregular heartbeat), Calf discomfort and Uncontrolled pain Meaningful Use Info Meaningful Use Diagnoses (Choose all that apply): None applicable Discharge Plan Admission Admit Date/Time: 06/28/21 20:53 Primary Reason for Your Visit: acute rhino viral with step viridan bacterial superinfectio pneumonia Attending Provider: Jeffery Cordon Primary Care Provider: Ian Mon Consulting Providers: Warren Atkins Discharge Orders/Prescriptions Prescriptions: New Mucus DM 30-600 mg Tablet Extended Release 12 Hr 1 tab PO BID Qty: 14 RF: 0 cephalexin 500 mg tablet 500 mg PO TID 7 Days Qty: 15 RF: 0 Continued naproxen [Naprosyn] 500 mg tablet 500 mg PO BID PRN (Reason: pain) Qty: 20 RF: 0 melatonin 5 mg Tablet 5 mg PO QHS RF: 0 albuterol sulfate 90 mcg/actuation HFA aerosol inhaler 2 puff INHALATION Q4H PRN (Reason: Shortness Of Breath Or Wheezing) RF: 0 benzonatate 100 mg capsule 100 mg PO TID PRN (Reason: Cough) RF: 0 fluticasone propionate 50 mcg/actuation spray,suspension 2 spray INTRANASAL DAILY RF: 0 Discontinued amoxicillin 500 mg capsule 500 mg PO BID RF: 0 Referrals / Follow Up: Peter Poe MD [STAFF PHYSICIAN] - Within 1 Month (For PFT. Chronic cough and wheezing and a smoking history Of 20 pack years) Ian Mon MD [Primary Care Provider] - In 1 Week (May need Chantix for smoking cessation ) Disposition Disposition (needs filled in before D/C Order can be placed): Home, Self Care Charges/Coding Visit Charges Inpatient E&M: 91303 Disch Hosp
[2021-06-30 11:26] VITALS: BP 107/66; PULSE 87; RESP 18; TEMP 36.4; O2SAT 93
--- NOTE | 2021-06-30 11:55 | CASEMGMT ---
BETHANIE CM in to pt room for assessment, pt has been discharged.
--- NOTE | 2021-06-30 14:11 | NURSING ---
pt notified of new atb script as requested by dr daily
[2021-07-05 07:48] LABS: Histoplasma Abs Negative (Neg:<1:1); Mycoplasma Pneum AB IgG 465 U/mL (0-99); Mycoplasma pneum. AB IgM < 770 U/mL (0-769)
== END 2021-06-30 11:26 | disposition home or self-care (01) | DRG 139 ==
LOC: ED 16:47 → MS2 21:21 → MS3 06-29 10:34 → MS2 06-29 13:07
PROVIDERS: Admitting Provider Hospitalist; Emergency Provider Emergency Medicine; PCP Family Medicine; Visit Provider Internal Medicine
DX: J12.9 Viral pneumonia, unspecified (principal); J96.01 Acute respiratory failure with hypoxia; B97.89 Other viral agents as the cause of diseases classified elsewhere; F17.210 Nicotine dependence, cigarettes, uncomplicated; Z28.3 Underimmunization status
CPT/HCPCS: 36415; 70450; 71045; 71275; 80048; 80053; 82550; 82728; 83605; 83615; 84145; 85025; 85379; 86140; 86698; 86738; 87040; 87070; 87205; 87426; 87449; 87633; 87635; 93005; 93306; 94640; 94667; 97802; 99251; 99284; 99406; J7030; J7040; Q9957; Q9967; U0005; A4216; C8929; G0463; J3490; U0003

== ENCOUNTER 2021-09-21 09:08 | Emergency (ER) | payer MEDICAID, SELFPAY ==
[2021-09-21 09:08] VITALS: BP 110/62; PULSE 89; RESP 14; TEMP 36.2; O2SAT 99; BMI 39.3
--- NOTE | 2021-09-21 09:32 | EX.ED.DYSGE1 ---
HPI History of Present Illness Chief Complaint: Rash Informant: patient Onset/Context/Timing Onset: Today Context: Sudden Onset Timing: Continuous Quality: Hives Location: Generalized Worsened by: Nothing Relieved by: Nothing Narrative Narrative: Patient presents with hives that began this morning. Patient states she woke up and noticed hives. Patient states it is over her arms, legs, chest, abdomen, face, and neck. Patient denies any difficulty breathing or difficulty swallowing. Patient states she did use a new laundry detergent recently. Patient states nothing makes her hives better or worse. Patient states she took some Benadryl prior to coming to the emergency department with minimal improvement of her hives. [facility] Medical History Kidney disease Kidney stones Smoker Wheezes Home Medications fluticasone propionate 2 spray INTRANASAL DAILY 06/29/21 [History Last Taken Unknown] bupropion HCl 150 mg PO BID 09/21/21 [History Last Taken Unknown] prednisone 60 mg PO DAILY #12 tablet 09/21/21 [Rx Last Taken Unknown] Allergy/AdvReac Type Severity Reaction Status Date / Time hydrocodone bitartrate Allergy Hives Verified 09/21/21 09:10 [From [place]] Family History Other Heart disease Surgical History History of hysterectomy Social History household members: none Smoking Status: Light Smoker (<10/day) alcohol intake: current alcohol intake frequency: other substance use type: does not use ROS ROS ED Constitutional Constitutional ED: Denies chills or fever(s) Eyes Eyes: Denies blurry vision or change in vision ENT ENT ED: Denies rhinorrhea or sore throat Cardiovascular Cardiovascular: Denies chest pain or palpitations Respiratory/Chest Respiratory/Chest: Denies cough or dyspnea Gastrointestinal Gastrointestinal: Denies nausea or vomiting Genitourinary Genitourinary ED: Denies dysuria or hematuria Musculoskeletal Musculoskeletal: Denies back pain or neck pain Integumentary Reports rash; Denies abscess Neurologic Neurologic: Denies headache(s) or weakness Allergic/Immunologic Allergic/Immunologic ED: Reports urticaria; Denies mouth swelling or tongue swelling EXAM Physical Exam Const Vital Signs: 09/21/21 09:08 Temperature 97.2 F L Temperature Source Temporal Pulse Rate 89 Respiratory Rate 14 Blood Pressure 110/62 Blood Pressure Mean 78 Pulse Ox 99 Positive well nourished and well developed General Appearance ED: well developed HEENT Reports moist mucous membranes HEENT Narrative: Oropharynx is clear. Airway is patent. There is no edema of the airway. Neck supple and no JVD Resp normal respiratory effort and clear to auscultation bilaterally Cardio regular rate, regular rhythm and no murmurs GI normal to inspection, nondistended, normoactive bowel sounds and non-tender Palpation: soft Extremity normal to inspection General Extremety ED: Negative for edema or tenderness General Extremity: Negative for edema Neuro oriented x3, CN's II-XII intact bilaterally and no sensory deficits noted Sensorium / Orientation: alert Motor Exam: strength 5/5 throughout Psych mental status grossly normal Skin Skin Narrative: There is a generalized patchy urticarial rash noted. There are no vesicles or pustules noted. There are no petechia noted. There is no involvement of the mucous membranes. MDM MDM MDM Narrative Medical decision making narrative: Since the patient took Benadryl prior to arrival, patient was given prednisone and Pepcid only. Patient is feeling better on reevaluation. Patient was given a prescription for prednisone. Patient was instructed to continue Benadryl, Zyrtec, Claritin, or Kimberly as needed for any itching. Patient was instructed to follow-up with her primary care physician in 5 to 7 days. Patient understood and was agreeable with the plan. All questions were answered. Discharge Plan Triage Chief Complaint: Rash ED Provider: Vinay Villa Dx/Rx/DC Orders Clinical Impression: Urticaria Instructions: ED Hives (Adult) Prescriptions: New prednisone 20 MG tablet 60 mg PO DAILY Qty: 12 RF: 0 No Action fluticasone propionate 50 mcg/actuation spray,suspension 2 spray INTRANASAL DAILY RF: 0 bupropion HCl 150 mg tablet sustained-release 12 hr 150 mg PO BID RF: 0 Primary Care Provider: Ian Mon Referrals: Ian Mon MD [Primary Care Provider] - 5-7 Days Disposition Disposition: Home, Self Care
[2021-09-21] MEDS: Famotidine 20 MG Tablet PO (09:35)
[2021-09-21] MEDS: predniSONE 20 MG Tablet 60 MG PO (09:35)
[2021-09-21 11:57] VITALS: PULSE 84; RESP 16; O2SAT 99
== END 2021-09-21 11:57 | disposition home or self-care (01) ==
PROVIDERS: Emergency Provider Emergency Medicine; PCP Family Medicine; Visit Provider Emergency Medicine
DX: L50.9 Urticaria, unspecified (principal); F17.210 Nicotine dependence, cigarettes, uncomplicated; Z87.442 Personal history of urinary calculi; Z90.710 Acquired absence of both cervix and uterus
CPT/HCPCS: 99282

== ENCOUNTER 2021-12-09 15:16 | Emergency (ER) | payer MEDICAID, SELFPAY ==
[2021-12-09 15:17] VITALS: BP 101/76; PULSE 81; RESP 14; TEMP 35.7; O2SAT 96; BMI 39.2
--- NOTE | 2021-12-09 15:41 | EDS_ITS ---
HPI HPI - GI History of Present Illness Chief Complaint: Abd Pain Detail of Chief Complaint: Abdominal pain x5 days Informant: patient Abdominal Pain/Flank Pain Current Severity: 06/28 Narrative Narrative: Patient presents to the emergency department complaint of abdominal pain that started 5 days ago. Patient states she is actually had pain off and on for the last 2 months or so. Patient has been seeing her primary care physician who ordered an ultrasound of the right upper quadrant which she had this morning which showed a possible small 2 mm polyp otherwise the study was unremarkable. Patient also scheduled to have a CAT scan of her abdomen pelvis tomorrow. Patient called back her physician and told her she was having severe pain and was instructed to come to the ER. Patient denies fevers. Food does seem to make the pain worse. Describes the pain is upper abdomen. Patient also has an EGD scheduled for December as she is never had an EGD before. Patient has had prior hysterectomy. Patient denies urinary symptoms. PFSH PFS Medical History Kidney disease Kidney stones Smoker Wheezes Home Medications omeprazole 40 mg PO DAILY 12/09/21 [History Last Taken Unknown] Allergy/AdvReac Type Severity Reaction Status Date / Time hydrocodone bitartrate Allergy Hives Verified 12/09/21 15:17 [From [place]] Family History Other Heart disease Surgical History History of hysterectomy Social History household members: none Smoking Status: Light Smoker (<10/day) alcohol intake: current alcohol intake frequency: other substance use type: does not use ROS ROS ED Constitutional Constitutional ED: Reports systems reviewed and no addt'l complaints, except as documented; Denies body ache(s), change in weight or chills Eyes Eyes: Denies acute decrease in peripheral vision, change in vision, double vision or loss of vision ENT ENT ED: Reports none; Denies ear pain, lip swelling, loss taste/smell, neck pain, otalgia or sore throat Cardiovascular Cardiovascular: Reports none; Denies abdominal pain, chest pain with activity, leg edema, lightheadedness, palpitations, rapid heart rate or syncope Respiratory/Chest Respiratory/Chest: Reports none; Denies change in mental status, dry cough, dyspnea, hemoptysis, shortness of breath at rest or shortness of breath with exertion Gastrointestinal Gastrointestinal: Reports none, abdominal pain, nausea and vomiting; Denies change in stool character, diarrhea, hematemesis, hematochezia, melena or rectal bleeding Genitourinary Genitourinary ED: Reports none; Denies abdominal discomfort, anuria, dysuria, genital pain or polyuria Musculoskeletal Musculoskeletal: Reports none; Denies arthralgias, back pain, difficulty walking, extremity pain, muscle weakness or myalgias Integumentary Reports none; Denies abscess or rash Neurologic Neurologic: Reports none; Denies abnormal gait, confusion, focal weakness, frequent falls, headache(s), loss of vision, numbness, paresthesias, radicular pain, vertigo or weakness Psychiatric Psychiatric: Reports systems reviewed and no addt'l complaints, except as documented and none; Denies behavioral changes, confusion, difficulty concentrating, hallucinations, suicidal ideation, tactile hallucinations or visual hallucinations Endocrine Endocrinology: Denies none, cold intolerance, excessive sweating, fatigue or heat intolerance Hematologic/Lymphatic Hematologic/Lymphatic: Reports none; Denies anemia, easy bleeding or easy br uising Allergic/Immunologic Allergic/Immunologic ED: Denies as per HPI, none, lip swelling, mouth swelling, throat swelling, tongue swelling or hives EXAM Physical Exam Const Vital Signs: 12/09/21 15:17 12/09/21 16:14 Temperature 96.2 F L Temperature Source Temporal Pulse Rate 81 74 Respiratory Rate 14 14 Blood Pressure 101/76 113/79 Blood Pressure Mean 84 90 Pulse Ox 96 99 Oxygen Delivery Method Room Air Room Air Positive well nourished and well developed General Appearance ED: well developed and NAD HEENT Reports TM's clear and moist mucous membranes normocephalic and atraumatic; Negative for trauma or tenderness Tympanic Membrane ED: Yes TM's clear Eyes PERRL and EOMs intact bilaterally General Eye ED: Negative for pale conjunctiva or scleral icterus Neck no lymphadenopathy, supple and no JVD General: Negative for tenderness Chest Wall inspection of chest normal and palpation of chest normal Chest: Negative for tenderness Resp normal respiratory effort and clear to auscultation bilaterally Effort and Inspection: Negative for respiratory distress or pain with movement Auscultation: Negative for rhonchi, wheezes or diminished lung sounds Cardio regular rate, regular rhythm, S1 normal heart sound, S2 normal heart sound and no murmurs Peripheral Pulses: pulses 2+ throughout GI normal to inspection, nondistended, normoactive bowel sounds, soft to palpation, non-tender, non-distended and no masses GI Narrative: Tenderness palpation over right upper quadrant with guarding. She does have a positive Hsetty sign. No rebound or rigidity noted. Palpation: tender Back/Spine no CVA tenderness and no thoracic nor lumbar tenderness Extremity normal to inspection General Extremety ED: Negative for edema General Extremity: Negative for edema Neuro oriented x3, CN's II-XII intact bilaterally, no sensory deficits noted and gait normal Sensorium / Orientation: awake, alert, oriented to person, oriented to place and oriented to time Motor Exam: strength 5/5 throughout and strength abnormal Psych mental status grossly normal Skin no rashes or lesions noted and no wounds MDM MDM MDM Narrative Medical decision making narrative: Line established on arrival. Patient was medicated with Dilaudid and Zofran. Lab work-up showed a slightly elevated white blood cell count of 14.1 although she does have history of chronic elevated WBC count. LFTs and lipase were normal as well as lactate. CT scan abdomen pelvis with IV and p.o. contrast was ordered and results are pending. Care of patient turned over to evening physician awaiting results and final disposition. Lab Data Attestation: I reviewed the patient's lab results. Labs: Laboratory Results - last 24 hr 12/09/21 12/09/21 12/09/21 15:50 15:50 15:50 WBC 14.1 H RBC 5.42 H Hgb 15.7 H Hct 47.7 H MCV 88.0 MCH 29.0 MCHC 32.9 RDW Std Deviation 40.1 RDW Coeff of Raeann 12.4 Plt Count 305 MPV 10.8 Immature Gran % (Auto) 0.400 Neut % (Auto) 48.0 Lymph % (Auto) 38.9 [place] % (Auto) 6.9 Eos % (Auto) 5.0 Baso % (Auto) 0.8 Absolute Neuts (auto) 6.8 Absolute Lymphs (auto) 5.49 H Nucleated RBC % 0 Differential Comment SCANNED Sodium 140 Potassium 3.8 Chloride 107 Carbon Dioxide 27.0 Anion Gap 6 BUN 15 Creatinine 0.66 Estim Creat Clear Calc 138.80 Est GFR (MDRD) Af Amer 130 Est GFR (MDRD) Non-Af 108 BUN/Creatinine Ratio 22.7 H Glucose 92 Lactic Acid 0.7 Calcium 9.4 Total Bilirubin 0.20 AST 12 L ALT 23 Alkaline Phosphatase 42 L Total Protein 7.3 Albumin 3.8 Globulin 3.5 Albumin/Globulin Ratio 1.1 Lipase 150 Urine Color Urine Clarity Urine pH Ur Specific [place] Urine Protein Urine Glucose (UA) Urine Ketones Urine Occult Blood Urine Nitrite Urine Bilirubin Urine Urobilinogen Ur Leukocyte Esterase Urine RBC Urine WBC Ur Squamous Epith Cells Urine Bacteria Urine Mucus 12/09/21 15:50 WBC RBC Hgb Hct MCV MCH MCHC RDW Std Deviation RDW Coeff of Raeann Plt Count MPV Immature Gran % (Auto) Neut % (Auto) Lymph % (Auto) [place] % (Auto) Eos % (Auto) Baso % (Auto) Absolute Neuts (auto) Absolute Lymphs (auto) Nucleated RBC % Differential Comment Sodium Potassium Chloride Carbon Dioxide Anion Gap BUN Creatinine Estim Creat Clear Calc Est GFR (MDRD) Af Amer Est GFR (MDRD) Non-Af BUN/Creatinine Ratio Glucose Lactic Acid Calcium Total Bilirubin AST ALT Alkaline Phosphatase Total Protein Albumin Globulin Albumin/Globulin Ratio Lipase Urine Color Yellow Urine Clarity Clear Urine pH 8.0 Ur Specific [place] 1.015 Urine Protein Negative Urine Glucose (UA) Normal Urine Ketones Negative Urine Occult Blood 150 H Urine Nitrite Negative Urine Bilirubin Negative Urine Urobilinogen Normal Ur Leukocyte Esterase Negative Urine RBC 5-10 SEEN Urine WBC 0 SEEN Ur Squamous Epith Cells 0 SEEN Urine Bacteria 0 SEEN Urine Mucus 0 SEEN Discharge Plan Triage Chief Complaint: Abd Pain ED Provider: Sunil Alicia Dx/Rx/DC Orders Clinical Impression: Abdominal pain Prescriptions: No Action omeprazole 40 mg capsule,delayed release(DR/EC) 40 mg PO DAILY RF: 0 Primary Care Provider: Ian Mon Referrals: Ian Mon MD [Primary Care Provider] -
[2021-12-09] MEDS: Ondansetron 4 MG/2 ML Vial IV (15:50)
[2021-12-09] MEDS: HYDROmorphone 1 MG/ML Syringe IV (15:50)
[2021-12-09] MEDS: 0.9% Normal Saline 1,000 ML 125 ML IV (15:51)
[2021-12-09 16:00] LABS: Bacteria 0 SEEN /hpf (None Seen); Mucous, Urine 0 SEEN /hpf (<or=2+); Squamous Epithelial Cells - UA 0 SEEN /hpf (5-10); White Blood Cells 0 SEEN /hpf (0-5)
[2021-12-09 16:07] LABS: Absolute Lymphocyte Count 5.49 X10^3/uL (0.83-4.51); Absolute Neutrophil Count 6.8 X10^3/uL (2.0-7.7); Basophil# 0.12 X10^3/uL; Basophil% 0.8 % (0-1); Hematocrit 47.7 % (37-47); Hemoglobin 15.7 g/dL (12.0-15.0); Lymphocyte # 5.49 X10^3/ul (0.83-4.51); Lymphocyte % 38.9 % (19-41); Mean Corp Hgb Conc 32.9 g/dL (32-36); Mean Platelet Vol. 10.8 fl (6.2-12.0); Monocyte# 0.98 X10^3/uL; Monocyte% 6.9 % (0-10); NRBC Flagged by Analyzer 0 % (0-5); Neutrophil # 6.77 X10^3/uL (2.7-7.7); POSITIVE DIFFERENTIAL YES; POSITIVE MORPHOLOGY YES; Platelet Count 305 K/mm3 (150-450); RBC Distribution Width CV 12.4 % (11.6-14.6); RBC Distribution Width SD 40.1 fl (35.1-43.9); Red Blood Count 5.42 M/mm3 (4.2-5.4); White Blood Count 14.1 K/mm3 (4.4-11.0)
[2021-12-09 16:14] VITALS: BP 113/79; PULSE 74; RESP 14; O2SAT 99
[2021-12-09 16:14] LABS: Differential Indicated SCAN CRITERIA MET
[2021-12-09 16:18] LABS: Color, Urine Yellow (Yellow); Glucose, Dipstick Normal (Normal); Ketone-Dipstick Negative (Negative); Leukocyte Esterase-Dipstick Negative /ul (Negative); Nitrite-Dipstick Negative (Negative); Occult Blood-Urine 150 /ul (Negative); Protein-Dipstick Negative (Negative); Specific Gravity, Urine 1.015 (1.002-1.030); Urine Bilirubin Dipstick Negative (Negative); Urine Clarity Clear (Clear); Urine Urobilinogen Normal (Normal)
[2021-12-09 16:21] LABS: ALB/GLOB Ratio 1.1 RATIO (0.9-2.4); AST(SGOT) 12 U/L (15-37); Alanine Aminotransfer ALT/SGPT 23 U/L (13-56); Albumin, Serum 3.8 g/dL (3.2-5.0); Alkaline Phosphatase 42 U/L (45-117); Anion Gap 6 (5-15); BUN 15 mg/dL (7-18); BUN/Creat Ratio 22.7 RATIO (10-20); Calcium,Total 9.4 mg/dL (8.5-10.1); Chloride 107 mmol/L (98-107); Creatinine, Serum 0.66 mg/dL (0.55-1.02); EST Glomerular Filtration Rate 108 mL/min (>60); Est Glom Filt Rate - Afr Amer 130 mL/min (>60); Globulin 3.5 g/dL (2.2-4.2); Glucose 92 mg/dL (74-106); Lipase 150 U/L (73-393); Potassium 3.8 mmol/L (3.5-5.1); Protein, Total 7.3 g/dL (6.4-8.2); Sodium Level 140 mmol/L (136-145)
[2021-12-09 16:27] LABS: Red Blood Cells-Urine 5-10 SEEN /hpf (0-5)
[2021-12-09 16:28] LABS: Lactic Acid 0.7 mmol/L (0.4-1.9)
[2021-12-09 16:43] LABS: Differential Comment SCANNED
--- NOTE | 2021-12-09 17:34 | CT_ITS ---
EXAM: CT ABDOMEN AND PELVIS WITH INTRAVENOUS CONTRAST : 1985 CLINICAL INDICATION: abdominal pain TECHNIQUE: Helically acquired images were obtained of the abdomen and pelvis with intravenous contrast. This CT exam was performed using one or more of the following dose reduction techniques: automated exposure control, adjustment of the mA and/or kV according to patient size, and/or use of iterative reconstruction technique. This report was created using Snippets report generation technology. CONTRAST: 100ML OF ISOVUE 300 COMPARISON: 03/07/2019 FINDINGS: LOWER THORAX: Unremarkable. Lung bases are clear. No cardiomegaly. No significant pericardial effusion. ABDOMEN: LIVER: Unremarkable. Homogeneous. No focal mass. GALLBLADDER AND BILE DUCTS: Unremarkable. No calcified gallstones. No gallbladder distention or wall edema. No intra- or extrahepatic biliary ductal dilation. PANCREAS: Unremarkable. No focal cystic or solid mass. SPLEEN: Unremarkable. Normal size without focal cystic or solid mass. ADRENALS: Unremarkable. No nodules. KIDNEYS AND URETERS: Unremarkable. Normal renal size and position. No hydronephrosis. STOMACH AND BOWEL: Unremarkable. No stomach or bowel distention. No focal inflammatory change. PELVIS: APPENDIX: No evidence of acute appendicitis. BLADDER: Unremarkable. REPRODUCTIVE: Unremarkable as visualized. No mass. ABDOMEN and PELVIS: INTRAPERITONEAL SPACE: Unremarkable. No ascites or other fluid collection. No free air. BONES/JOINTS: Unremarkable. No suspicious lytic or blastic abnormality. SOFT TISSUES: Unremarkable. No discrete abdominal or pelvic wall hernia. VASCULATURE: Unremarkable. Abdominal aorta is non-dilated. LYMPH NODES: Unremarkable. No enlarged lymph nodes. CT/Abdomen/Pelvis WITH Contrast IMPRESSION: Negative CT of the abdomen and pelvis with intravenous contrast. Individualized dose optimization techniques were used for this CT. at 1753 Reported and signed by: Bhupendra Starr MD Electronically Signed: Bhupendra Starr MD at 17:52 EDT ,
[2021-12-09 18:01] VITALS: BP 112/73; PULSE 72; RESP 16; O2SAT 96
[2021-12-09 19:03] VITALS: BP 119/78; PULSE 89; RESP 15; O2SAT 98
== END 2021-12-09 19:03 | disposition home or self-care (01) ==
PROVIDERS: Emergency Provider Emergency Medicine; PCP Family Medicine; Visit Provider Emergency Medicine
DX: R10.9 Unspecified abdominal pain (principal); F17.200 Nicotine dependence, unspecified, uncomplicated; Z87.442 Personal history of urinary calculi
CPT/HCPCS: 74177; 80053; 81001; 83605; 83690; 85025; 96361; 96374; 96375; 99283; J7030; A4216; J2405

== ENCOUNTER 2022-01-26 13:10 | Emergency (ER) | payer MEDICAID, SELFPAY ==
[2022-01-26 13:10] VITALS: BP 117/69; PULSE 89; RESP 16; TEMP 37.1; O2SAT 97; BMI 40.0
--- NOTE | 2022-01-26 13:32 | EDS_ITS ---
HPI HPI - Female History of Present Illness Chief Complaint: Female C/O Informant: patient Narrative Narrative: Presents with bladder area pressure. She states she had intercourse last week which was the first time in 2 years. However, it was not painful and she had no symptoms then. About 3 days later she started to get suprapubic pressure. About 2 days ago she started to get hematuria. She has frequency urgency and dysuria. She is still making good urine. However she can see that it is bloody. She went to urgent care today and they stated that she has blood in her urine but cannot see any definite infection and recommended she come here. Patient is eating and drinking well. No nausea vomiting. She had mild constipation but she took something and she moved her bowels normally this morning. No blood was seen. She is not having any vaginal pain discharge or bleeding. The only blood she sees is with urination. She does not have fevers chills sweats nausea vomiting or flank pain. She has a history of kidney stones but states this does not feel at all like a kidney stone. PFSH [facility] Medical History Kidney disease Kidney stones Smoker Wheezes Home Medications omeprazole 40 mg PO DAILY 12/09/21 [History Last Taken Unknown] phenazopyridine [Pyridium] 200 mg PO TID #10 tab 01/26/22 [Rx Last Taken Unknown] sulfamethoxazole-trimethoprim [Bactrim DS] 1 tab PO BID 7 Days #14 tab 01/26/22 [Rx Last Taken Unknown] Allergy/AdvReac Type Severity Reaction Status Date / Time hydrocodone bitartrate Allergy Hives Verified 01/26/22 13:12 [From [place]] Family History Other Heart disease Surgical History History of hysterectomy Social History household members: none Smoking Status: Current every day smoker tobacco type: cigarettes alcohol intake: current alcohol intake frequency: other substance use type: does not use ROS ROS ED Constitutional Constitutional ED: Denies chills or fever(s) Cardiovascular Cardiovascular: Denies chest pain Respiratory/Chest Respiratory/Chest: Denies cough or dyspnea Gastrointestinal Gastrointestinal: Reports other Details: See history of present illness peer ; Denies diarrhea, melena, nausea or vomiting Genitourinary Genitourinary ED: Reports dysuria, hematuria, urinary frequency and other Details: See history of present illness Musculoskeletal Musculoskeletal: Denies myalgias Integumentary Denies rash Neurologic Neurologic: Denies headache(s) Psychiatric Psychiatric: Denies anxiety or depression Endocrine Endocrinology: Denies polydipsia or polyuria Hematologic/Lymphatic Hematologic/Lymphatic: Denies easy bleeding or easy bruising Allergic/Immunologic Allergic/Immunologic ED: Denies urticaria EXAM Physical Exam Const Vital Signs: 01/26/22 13:10 Temperature 98.7 F Temperature Source Temporal Pulse Rate 89 Respiratory Rate 16 Blood Pressure 117/69 Blood Pressure Mean 85 Pulse Ox 97 Oxygen Delivery Method Room Air Positive well nourished and well developed General Appearance ED: well developed and NAD HEENT Reports moist mucous membranes Eyes General Eye ED: Negative for pale conjunctiva or scleral icterus Neck no JVD Resp normal respiratory effort and clear to auscultation bilaterally Cardio regular rate and regular rhythm GI normal to inspection, nondistended, normoactive bowel sounds and soft to palpation GI Narrative: Patient has reproducible suprapubic tenderness. No real left or right lower quadrant tenderness. Remainder the abdomen is benign. No CVA tenderness at all. no CVA tenderness Extremity normal to inspection General Extremety ED: Negative for tenderness Neuro Sensorium / Orientation: alert Psych mental status grossly normal Skin no rashes or lesions noted MDM MDM MDM Narrative Medical decision making narrative: Patient does have a mild bump of her white count at 12.8 which is a nonspecific finding. Overall electrolytes are essentially normal. Urine is strongly positive for UTI. It is cloudy with leukocyte esterase and 25-50 white cells and 4+ bacteria. Patient has symptoms of UTI. She has symptoms that started after her first episode of intercourse in 2 years. We will treat with antibiotics and Pyridium. We discussed reasons to return including worsening pain, flank pain, fevers, nausea vomiting or other concerns Lab Data Attestation: I reviewed the patient's lab results. Labs: Laboratory Results - last 24 hr 01/26/22 01/26/22 01/26/22 13:40 13:40 13:45 WBC 12.8 H RBC 4.76 Hgb 14.1 Hct 41.9 MCV 88.0 MCH 29.6 MCHC 33.7 RDW Std Deviation 38.3 RDW Coeff of Raeann 11.9 Plt Count 282 MPV 10.3 Immature Gran % (Auto) 0.400 Neut % (Auto) 52.1 Lymph % (Auto) 36.6 [place] % (Auto) 5.5 Eos % (Auto) 4.8 Baso % (Auto) 0.6 Absolute Neuts (auto) 6.7 Absolute Lymphs (auto) 4.68 H Nucleated RBC % 0 Sodium 138 Potassium 3.7 Chloride 106 Carbon Dioxide 24.0 Anion Gap 8 BUN 12 Creatinine 0.54 L Estim Creat Clear Calc 172.84 Est GFR (MDRD) Af Amer 164 Est GFR (MDRD) Non-Af 135 BUN/Creatinine Ratio 22.1 H Glucose 89 Calcium 8.7 Urine Color Yellow Urine Clarity Cloudy Urine pH 7.0 Ur Specific [place] 1.010 Urine Protein 15 H Urine Glucose (UA) Normal Urine Ketones Negative Urine Occult Blood 150 H Urine Nitrite Negative Urine Bilirubin Negative Urine Urobilinogen Normal Ur Leukocyte Esterase 25 H Urine RBC 5-10 SEEN Urine WBC 25-50 SEEN Ur Squamous Epith Cells 0-5 SEEN Urine Bacteria 4+ Urine Mucus 0 SEEN Discharge Plan Triage Chief Complaint: Female C/O ED Provider: Fabricio Richard Dx/Rx/DC Orders Clinical Impression: Urinary tract infection Instructions: ED CYSTITIS Female Adult Prescriptions: New phenazopyridine [Pyridium] 200 MG tablet 200 mg PO TID Qty: 10 RF: 0 sulfamethoxazole-trimethoprim [Bactrim DS] 800-160 mg tablet 1 tab PO BID 7 Days Qty: 14 RF: 0 No Action omeprazole 40 mg capsule,delayed release(DR/EC) 40 mg PO DAILY RF: 0 Primary Care Provider: Ian Mon Referrals: Ian Mon MD [Primary Care Provider] - 3-5 Days Disposition Disposition: Home, Self Care
[2022-01-26 13:46] LABS: Absolute Lymphocyte Count 4.68 X10^3/uL (0.83-4.51); Absolute Neutrophil Count 6.7 X10^3/uL (2.0-7.7); Basophil# 0.08 X10^3/uL; Basophil% 0.6 % (0-1); Eosinophil# 0.61 X10^3/uL; Eosinophils% 4.8 % (0-5); Hematocrit 41.9 % (37-47); Hemoglobin 14.1 g/dL (12.0-15.0); Lymphocyte # 4.68 X10^3/ul (0.83-4.51); Lymphocyte % 36.6 % (19-41); Mean Corp Hgb Conc 33.7 g/dL (32-36); Mean Corpuscular Hgb 29.6 pg (27.0-32.0); Mean Platelet Vol. 10.3 fl (6.2-12.0); Monocyte# 0.71 X10^3/uL; Monocyte% 5.5 % (0-10); NRBC Flagged by Analyzer 0 % (0-5); Neutrophil # 6.67 X10^3/uL (2.7-7.7); Neutrophil % 52.1 % (47-70); POSITIVE MORPHOLOGY YES; Platelet Count 282 K/mm3 (150-450); RBC Distribution Width CV 11.9 % (11.6-14.6); RBC Distribution Width SD 38.3 fl (35.1-43.9); Red Blood Count 4.76 M/mm3 (4.2-5.4); White Blood Count 12.8 K/mm3 (4.4-11.0)
[2022-01-26] MEDS: 0.9% Normal Saline 1,000 ML 1000 ML IV (13:47)
[2022-01-26 13:49] LABS: Differential Indicated SCAN CRITERIA MET
[2022-01-26 13:54] LABS: Mucous, Urine 0 SEEN /hpf (<or=2+)
[2022-01-26 13:55] LABS: Color, Urine Yellow (Yellow); Glucose, Dipstick Normal (Normal); Ketone-Dipstick Negative (Negative); Leukocyte Esterase-Dipstick 25 /ul (Negative); Nitrite-Dipstick Negative (Negative); Occult Blood-Urine 150 /ul (Negative); Protein-Dipstick 15 mg/dl (Negative); Urine Bilirubin Dipstick Negative (Negative); Urine Clarity Cloudy (Clear); Urine Urobilinogen Normal (Normal)
[2022-01-26 14:02] LABS: Anion Gap 8 (5-15); BUN 12 mg/dL (7-18); BUN/Creat Ratio 22.1 RATIO (10-20); Calcium,Total 8.7 mg/dL (8.5-10.1); Chloride 106 mmol/L (98-107); Creatinine, Serum 0.54 mg/dL (0.55-1.02); EST Glomerular Filtration Rate 135 mL/min (>60); Est Glom Filt Rate - Afr Amer 164 mL/min (>60); Estimated Creatinine Clearance 172.84 ml/min; Glucose 89 mg/dL (74-106); Potassium 3.7 mmol/L (3.5-5.1); Sodium Level 138 mmol/L (136-145)
[2022-01-26 14:03] LABS: Bacteria 4+ /hpf (None Seen); Red Blood Cells-Urine 5-10 SEEN /hpf (0-5); Squamous Epithelial Cells - UA 0-5 SEEN /hpf (5-10); White Blood Cells 25-50 SEEN /hpf (0-5)
[2022-01-26] MEDS: Smz/Tmp Ds Tablet 1 TABLET PO (15:00)
[2022-01-26] MEDS: Phenazopyridine 95 MG Tablet PO (15:00)
== END 2022-01-26 15:06 | disposition home or self-care (01) ==
PROVIDERS: Emergency Provider Emergency Medicine; PCP Family Medicine; Visit Provider Emergency Medicine
DX: N39.0 Urinary tract infection, site not specified (principal); F17.210 Nicotine dependence, cigarettes, uncomplicated; R31.9 Hematuria, unspecified; Z87.442 Personal history of urinary calculi; Z90.710 Acquired absence of both cervix and uterus
CPT/HCPCS: 80048; 81001; 85025; 87086; 87088; 96360; 99284; J7030; A4216

== ENCOUNTER 2022-06-19 14:53 | Emergency (ER) | payer MEDICAID, SELFPAY ==
[2022-06-19 14:54] VITALS: BP 129/84; PULSE 96; RESP 18; TEMP 36.6; O2SAT 100; BMI 32.7
[2022-06-19 14:57] VITALS: BP 129/84; PULSE 96; RESP 18; TEMP 36.6; O2SAT 100
--- NOTE | 2022-06-19 15:13 | EDS_ITS ---
HPI History of Present Illness Chief Complaint: General Illness Informant: patient Onset/Context/Timing Onset: Today and Yesterday Context: Gradual Onset Timing: Continuous Current Severity: Mild Maximum Severity: Mild Narrative Narrative: 37-year-old female no seen past medical history. Says she has been short of br eath with a cough is nonproductive since yesterday. Diarrhea. No fever. Positive chills. No chest pain. No hemoptysis. She works in an area [employer] and 5 other people off work sick today. She denies any vomiting. Prior similar symptoms: Yes Recent Illness/Hospitalization: No PFSH PFSH Medical History Kidney disease Kidney stones Smoker Wheezes Home Medications omeprazole 40 mg capsule,delayed release 40 mg PO DAILY 12/09/21 [History Last Taken Unknown] phenazopyridine 200 mg tablet (Pyridium) 200 mg PO TID #10 tabs 01/26/22 [Rx Last Taken Unknown] sulfamethoxazole 800 mg-trimethoprim 160 mg tablet (Bactrim DS) 1 tab PO BID 7 days #14 tabs 01/26/22 [Rx Last Taken Unknown] Allergy/AdvReac Type Severity Reaction Status Date / Time hydrocodone bitartrate Allergy Hives Verified 06/19/22 14:53 [From [place]] Family History Other Heart disease Surgical History History of hysterectomy Social History household members: none Smoking Status: Current every day smoker tobacco type: cigarettes alcohol intake: current alcohol intake frequency: other substance use type: does not use ROS ROS ED ROS Narrative Cough and chills. No diarrhea. Review of Systems ROS Unobtainable: Denies due to encephalopathy Constitutional Constitutional ED: Reports chills; Denies fever(s) Eyes Eyes: Denies blurry vision ENT ENT ED: Denies ear pain Cardiovascular Cardiovascular: Denies chest pain Respiratory/Chest Respiratory/Chest: Reports cough and dyspnea Gastrointestinal Gastrointestinal: Denies abdominal pain Genitourinary Genitourinary ED: Denies dysuria Musculoskeletal Musculoskeletal: Denies arthralgias Integumentary Denies abscess Neurologic Neurologic: Denies headache(s) Psychiatric Psychiatric: Denies anxiety Endocrine Endocrinology: Denies cold intolerance Hematologic/Lymphatic Hematologic/Lymphatic: Reports none Allergic/Immunologic Allergic/Immunologic ED: Denies mouth swelling or tongue swelling EXAM Physical Exam Narrative Exam Narrative: 37-year-old female no acute distress. Vital signs stable afebrile. Pulse ox 9% on room air no signs hypoxia. Patient does not look septic or toxic. No distress. H EENT exam normal. Moist Riis membranes. Posterior pharynx normal. Neck nontender. No meningismus. No lymphadenopathy. Lungs few scattered expiratory wheezes bilaterally. Heart regular rhythm rate about 95 no murmur. Chest were nontender. Abdomen soft nontender. Moving all 4 extremities. Normal motor strength. Calves nontender without edema nor cords. Neurologically awake and alert. Const Vital Signs: 06/19/22 14:54 06/19/22 14:57 06/19/22 15:35 Temperature 97.8 F 97.8 F Temperature Source Temporal Temporal Pulse Rate 96 96 Respiratory Rate 18 18 Respiratory Effort Normal Non-Labored Respiratory Pattern Normal Blood Pressure 129/84 H 129/84 H Blood Pressure Mean 99 99 Pulse Ox 100 100 Oxygen Delivery Method Room Air Room Air Positive well nourished, well developed and unkempt; Negative for cachectic or contractures General Appearance ED: unkempt, well developed and NAD; Negative for cachectic, contractures, cyanotic, diaphoretic or pallor Nutritional Appearance: Negative for cachectic HEENT Reports moist mucous membranes; Denies dry mucous membranes Negative for trauma Mouth ED: No dry mucous membranes Mouth: No dry mucous membranes Eyes PERRL and EOMs intact bilaterally General Eye ED: Negative for pale conjunctiva or scleral icterus Neck no lymphadenopathy, supple and no JVD General: Negative for tenderness Lymph Lymphatic: Negative for other Chest Wall inspection of chest normal and palpation of chest normal Chest: Negative for other Resp normal respiratory effort and No clear to auscultation bilaterally Effort and Inspection: retractions Auscultation: wheezes; Negative for rales, rhonchi or diminished lung sounds Cardio regular rate, regular rhythm, S1 normal heart sound, S2 normal heart sound and no murmurs GI normal to inspection, nondistended, normoactive bowel sounds, non-tender, non- distended and no masses Auscultation: normoactive bowel sounds Palpation: Negative for soft or tender Bladder / Kidney Exam: No other Back/Spine no CVA tenderness General Back: Negative for CVA tenderness Cervical Spine: Negative for cervical spine tenderness Thoracic Spine / Upper Back: Negative for thoracic spinal tenderness Lumbar Spine / Lower Back: Negative for lumbar spinal tenderness Extremity normal to inspection General Extremety ED: Negative for edema or tenderness General Extremity: Negative for edema Neuro oriented x3 and CN's II-XII intact bilaterally Sensorium / Orientation: alert; Negative for orientation impaired, lethargic or stuporous Motor Exam: strength 5/5 throughout; Negative for general weakness Psych mental status grossly normal Appearance: unkempt Attitude: No agitated Mood & Affect: Negative for depressed, anxious or tearful Skin no rashes or lesions noted and skin turgor normal General Skin Exam: Negative for jaundice or pallor Lesions: No lesion noted Rashes: No rashes noted Trauma: Negative for abrasion Wounds: Negative for wounds noted MDM MDM MDM Narrative Medical decision making narrative: 37-year-old most likely is a viral syndrome. Chest x-ray and COVID testing obtained. Lab Data Lab results narrative: Rapid COVID test negative. Radiography Chest X-Ray - ED: 1 View, Read by ED Physician, Heart, Lungs, Mediastinum, Bony Structures, No Acute Disease and Chronic Changes Diagnostic Testing: Chest x-ray, portable, single view interpreted by myself shows no acute abnormality. Normal cardiac silhouette. No infiltrates. Discharge Plan Triage Chief Complaint: General Illness ED Provider: Armen Grace Dx/Rx/DC Orders Prescriptions: No Action omeprazole 40 mg capsule,delayed release(DR/EC) 40 mg PO DAILY phenazopyridine [Pyridium] 200 MG tablet 200 mg PO TID Qty: 10 0RF sulfamethoxazole-trimethoprim [Bactrim DS] 800-160 mg tablet 1 tab PO BID 7 Days Qty: 14 0RF Primary Care Provider: Ian Mon Referrals: Ian Mon MD [Primary Care Provider] -
--- NOTE | 2022-06-19 15:30 | RAD_ITS ---
EXAM: XR CHEST, 1 VIEW CLINICAL INDICATION: cough TECHNIQUE: Frontal view of the chest. This report was created using [employer] report generation technology. COMPARISON: 06/28/2021 FINDINGS: LUNGS AND PLEURAL SPACES: Unremarkable. No consolidation or edema. No pneumothorax. No effusion. HEART: Unremarkable. Cardiac silhouette not enlarged. MEDIASTINUM: Central airways and mediastinal contour are unremarkable. BONES/JOINTS: Unremarkable. SOFT TISSUES: Unremarkable. RAD/Chest 1 View (Portable) IMPRESSION: No radiographic evidence of acute cardiopulmonary disease. Electronically Signed: Bhupendra Starr MD at 16:05 EDT ,
[2022-06-19 16:09] VITALS: PULSE 79; RESP 14; O2SAT 97
== END 2022-06-19 16:15 | disposition home or self-care (01) ==
PROVIDERS: Emergency Provider Emergency Medicine; PCP Family Medicine; Visit Provider Emergency Medicine
DX: R19.7 Diarrhea, unspecified (principal); F17.210 Nicotine dependence, cigarettes, uncomplicated; R06.02 Shortness of breath; R68.83 Chills (without fever)
CPT/HCPCS: 71045; 87811; 99282

== ENCOUNTER 2022-10-02 12:48 | Emergency (ER) | payer MEDICAID, SELFPAY ==
[2022-10-02 12:49] VITALS: BP 140/78; PULSE 86; RESP 14; TEMP 36.1; O2SAT 100; BMI 31.8
--- NOTE | 2022-10-02 13:09 | ED.VIS.GI ---
HPI HPI - GI History of Present Illness Chief Complaint: GI Bleed Detail of Chief Complaint: Hematochezia Informant: patient Abdominal Pain/Flank Pain Onset: Today Context: Sudden Onset Timing: Intermittent Quality: - (Rectal irritation) Location: - (Anus) Current Severity: Gone Maximum Severity: Mild Worsened by: - (Bowel movement and wiping); Not Worsened By Food, Movement or Nothing Relieved by: Nothing Nausea/Vomiting/Emesis GI Symptom: Negative for Nausea or Vomiting Diarrhea/Melena/Hematochezia GI Symptom: Positive for Hematochezia; Negative for Diarrhea or Melena Associated Symptoms Associated Symptoms: Negative for Dysuria, Frequency, Hematuria or Urgency Narrative Narrative: Patient is a 37-year-old woman who presents with bright red blood with bowel movement. She does have known history of hemorrhoids. She has seen Dr. Lewis per old records who was discussed hemorrhoid surgery. Patient does complain of some cramping pain. She reported lightheadedness when she alexei from the commode. She presently denies orthostatic symptoms. She denies fever, chills night sweats. She denies dyspnea [place] exertion. She denies anginal chest discomfort. She denies hematuria. Denies bleeding of her gums. Denies bruising easily. She is not on antithrombotic or anticoagulant. Prior similar symptoms: Yes Recent Illness/Hospitalization: No PFSH PFSH Medical History Kidney disease Kidney stones Smoker Wheezes Home Medications omeprazole 40 mg capsule,delayed release 40 mg PO DAILY 12/09/21 [History Last Taken Unknown] phenazopyridine 200 mg tablet (Pyridium) 200 mg PO TID #10 tabs 01/26/22 [Rx Last Taken Unknown] sulfamethoxazole 800 mg-trimethoprim 160 mg tablet (Bactrim DS) 1 tab PO BID 7 days #14 tabs 01/26/22 [Rx Last Taken Unknown] Allergy/AdvReac Type Severity Reaction Status Date / Time hydrocodone bitartrate Allergy Hives Verified 10/02/22 12:50 [From [place]] Family History Other Heart disease Surgical History History of hysterectomy Social History household members: none Smoking Status: Former smoker alcohol intake: current alcohol intake frequency: other substance use type: does not use ROS ROS ED Constitutional Constitutional ED: Denies chills, fever(s), subjective, sweats or weight loss Cardiovascular Cardiovascular: Reports other Details: Orthostatic per HPI ; Denies chest pain, palpitations or racing heartbeat Respiratory/Chest Respiratory/Chest: Denies dyspnea or dyspnea on exertion Gastrointestinal Gastrointestinal: Reports abdominal pain and other Details: Per HPI ; Denies melena, nausea or vomiting Genitourinary Genitourinary ED: Denies hematuria Psychiatric Psychiatric: Reports anxiety Hematologic/Lymphatic Hematologic/Lymphatic: Denies easy bleeding or easy bruising EXAM Physical Exam Const Vital Signs: 10/02/22 12:49 Temperature 97.0 F L Temperature Source Temporal Pulse Rate 86 Respiratory Rate 14 Blood Pressure 140/78 H Blood Pressure Mean 98 Pulse Ox 100 Oxygen Delivery Method Room Air Positive well nourished, well developed and obese Constitutional Narrative: Patient is slightly anxious. General Appearance ED: well developed; Negative for pallor Nutritional Appearance: obese HEENT Reports moist mucous membranes normocephalic and atraumatic Eyes PERRL and EOMs intact bilaterally General Eye ED: Negative for pale conjunctiva or scleral icterus Neck no lymphadenopathy, supple and no JVD Resp normal respiratory effort and clear to auscultation bilaterally Cardio regular rate, regular rhythm, S1 normal heart sound, S2 normal heart sound and no murmurs GI non-tender, non-distended and no masses Auscultation: normoactive bowel sounds Palpation: Negative for hepatomegaly, splenomegaly or pulsatile mass Back/Spine no CVA tenderness Extremity full ROM General Extremety ED: Negative for edema or tenderness General Extremity: Negative for edema Neuro CN's II-XII intact bilaterally and moves all extremities Psych thought process normal Mood & Affect: anxious Skin no wounds General Skin Exam: Negative for jaundice or pallor Lesions: no lesions Rashes: no rashes MDM MDM MDM Narrative Medical decision making narrative: History of right red blood on and hemorrhoids anoscopy was performed. Please see procedure note. Differential diagnosis would be bleeding due to hemorrhoids versus lower GI bleed Procedures Other Procedures Procedure(s): Anoscopy: Nurse was present during anoscopy. On rectal exam patient has a cluster of hemorrhoids 6:00 lithotomy position. Patient had mild discomfort with rectal exam. She had increased discomfort with anoscopy. The rectal anal mucosa appeared normal. There is a cluster of hemorrhoids noted. There is no active bleeding. The hemorrhoids are nonthrombosed. Nurse was present during anoscopy. Anoscopy was performed with nurse private detective Discharge Plan Triage Chief Complaint: GI Bleed ED Provider: Miguelito Cesar Dx/Rx/DC Orders Clinical Impression: External bleeding hemorrhoids, Anal or rectal pain, Hematochezia Instructions: ED Hemorrhoids Prescriptions: No Action omeprazole 40 mg capsule,delayed release(DR/EC) 40 mg PO DAILY phenazopyridine [Pyridium] 200 MG tablet 200 mg PO TID Qty: 10 0RF sulfamethoxazole-trimethoprim [Bactrim DS] 800-160 mg tablet 1 tab PO BID 7 Days Qty: 14 0RF Primary Care Provider: Ian Mon Referrals: Ian Mon MD [Primary Care Provider] - Vivian Gray MD [Med Staff - Active Staff] - 5-7 Days Disposition Disposition: Home, Self Care
[2022-10-02 13:20] VITALS: RESP 16
== END 2022-10-02 13:22 | disposition home or self-care (01) ==
LOC: ED 13:21
PROVIDERS: Emergency Provider Emergency Medicine; PCP Family Medicine; Visit Provider Emergency Medicine
DX: K64.4 Residual hemorrhoidal skin tags (principal); K92.2 Gastrointestinal hemorrhage, unspecified; R11.2 Nausea with vomiting, unspecified; Z87.891 Personal history of nicotine dependence; R10.9 Unspecified abdominal pain; E66.9 Obesity, unspecified
CPT/HCPCS: 46600; 99282

== ENCOUNTER 2022-10-22 18:53 | Emergency (ER) | payer MEDICAID, SELFPAY ==
[2022-10-22 18:54] VITALS: BP 120/82; PULSE 132; RESP 20; TEMP 36.4; O2SAT 93; BMI 33.7
--- NOTE | 2022-10-22 20:00 | RAD_ITS ---
EXAM: XR CHEST, 1 VIEW CLINICAL INDICATION: sob TECHNIQUE: Frontal view of the chest. This report was created using [employer] report generation technology. COMPARISON: 06.19.22 FINDINGS: LUNGS AND PLEURAL SPACES: Unremarkable. No consolidation or edema. No pneumothorax. No effusion. HEART: Unremarkable. Cardiac silhouette not enlarged. MEDIASTINUM: Central airways and mediastinal contour are unremarkable. BONES/JOINTS: Unremarkable. SOFT TISSUES: Unremarkable. RAD/Chest 1 View (Portable) IMPRESSION: No radiographic evidence of acute cardiopulmonary disease. Electronically Signed: Conner Alvarez MD at 20:11 EST ,
--- NOTE | 2022-10-22 22:40 | ED.VIS.DYS ---
HPI History of Present Illness Chief Complaint: Shortness of Breath Informant: patient Onset/Context/Timing Onset: Weeks (1.5) Context: gradual Timing: Continuous Quality: Positive for Dyspnea on exertion Worsened by: - (Called mother) Relieved by: - (Hot shower) Associated Symptoms cough, rhinorrhea and green sputum; Negative for fever, sore throat, chills or sweats Chest Pain: Positive for Continuous and Pressure Narrative Narrative: Patient presents with shortness of breath that has been getting worse over the past 1-1/2 weeks. Patient states it is gradually getting worse. Patient states it has been constant. Patient states her breathing is worse when she goes out into the cold weather. Patient states it is better whenever she takes a hot shower. Patient states she is coughing up some green sputum. Patient also admits to some green rhinorrhea. Patient denies any sore throat or ear pain. Patient admits to some heaviness in her chest. Patient denies any nausea or vomiting. PE Risk Factors: Negative for Cancer, OCP + Smoking + > 35, Prior DVT or PE, Recent immobilization, Recent surgery or Recent travel [facility] Medical History Kidney disease Kidney stones Smoker Wheezes Home Medications omeprazole 40 mg capsule,delayed release 40 mg PO DAILY 12/09/21 [History Last Taken Unknown] phenazopyridine 200 mg tablet (Pyridium) 200 mg PO TID #10 tabs 01/26/22 [Rx Last Taken Unknown] sulfamethoxazole 800 mg-trimethoprim 160 mg tablet (Bactrim DS) 1 tab PO BID 7 days #14 tabs 01/26/22 [Rx Last Taken Unknown] Allergy/AdvReac Type Severity Reaction Status Date / Time hydrocodone bitartrate Allergy Hives Verified 10/22/22 18:55 [From [place]] Family History Other Heart disease Surgical History History of hysterectomy Social History household members: none Smoking Status: Former smoker alcohol intake: current alcohol intake frequency: other substance use type: does not use ROS ROS ED Constitutional Constitutional ED: Denies chills or fever(s) Eyes Eyes: Denies blurry vision or change in vision ENT ENT ED: Reports rhinorrhea; Denies sore throat Cardiovascular Cardiovascular: Denies chest pain or palpitations Respiratory/Chest Respiratory/Chest: Reports cough and dyspnea Gastrointestinal Gastrointestinal: Denies nausea or vomiting Genitourinary Genitourinary ED: Denies dysuria or hematuria Musculoskeletal Musculoskeletal: Reports back pain; Denies neck pain Integumentary Denies abscess or rash Neurologic Neurologic: Denies headache(s) or weakness Allergic/Immunologic Allergic/Immunologic ED: Denies mouth swelling or urticaria EXAM Physical Exam Const Vital Signs: 10/22/22 18:54 10/22/22 23:13 10/22/22 23:13 Temperature 97.5 F L Temperature Source Temporal Pulse Rate 132 H Respiratory Rate 20 H 16 Respiratory Effort Respiratory Depth Respiratory Pattern Blood Pressure 120/82 H Blood Pressure Mean 94 Pulse Ox 93 96 96 Oxygen Delivery Method Room Air Room Air Room Air 10/22/22 23:32 10/23/22 00:52 Temperature Temperature Source Pulse Rate 105 H Respiratory Rate 18 Respiratory Effort Normal Respiratory Depth Normal Respiratory Pattern Normal Blood Pressure Blood Pressure Mean Pulse Ox Oxygen Delivery Method Room Air Positive well nourished, well developed and obese General Appearance ED: well developed and NAD Nutritional Appearance: obese HEENT Reports moist mucous membranes Neck supple and no JVD Resp normal respiratory effort Auscultation: wheezes left lower Cardio regular rate, regular rhythm and no murmurs GI normal to inspection, nondistended, normoactive bowel sounds Palpation: soft Extremity normal to inspection General Extremety ED: Negative for edema or tenderness General Extremity: Negative for edema Neuro oriented x3, CN's II-XII intact bilaterally and no sensory deficits noted Sensorium / Orientation: alert Motor Exam: strength 5/5 throughout Psych mental status grossly normal Skin no rashes or lesions noted MDM MDM MDM Narrative Medical decision making narrative: Differential diagnosis includes pneumonia, viral upper respiratory infection, pneumothorax, and pulmonary embolus. Chest x-ray will be obtained to assess for pneumonia and pneumothorax. COVID-19 rapid antigen will be obtained to assess for COVID-19 infection. Influenza A and influenza B rapid antigens will be obtained to assess for influenza infection. CBC will be obtained to assess for leukocytosis and anemia. Basic metabolic profile will be obtained to assess for electrolyte abnormality and renal function. D-dimer will be obtained to assess for possible pulmonary embolism. Lab Data Lab results narrative: COVID-19 rapid antigen was reviewed and was negative. Influenza A and influenza B rapid antigens were reviewed and were negative. BC was reviewed and showed a leukocytosis of 21.0. Basic metabolic profile was reviewed and was within normal limits. D-dimer was reviewed and was elevated at 0.66 Labs: Laboratory Results - last 24 hr 10/22/22 10/22/22 10/22/22 23:10 23:10 23:27 WBC 21.0 H RBC 4.99 Hgb 14.4 Hct 42.9 MCV 86.0 MCH 28.9 MCHC 33.6 RDW Std Deviation 38.9 RDW Coeff of Raeann 12.5 Plt Count 278 MPV 10.3 Immature Gran % (Auto) 2.000 H Neut % (Auto) 77.2 H Lymph % (Auto) 13.6 L [place] % (Auto) 6.4 Eos % (Auto) 0.6 Baso % (Auto) 0.2 Absolute Neuts (auto) 16.2 H Absolute Lymphs (auto) 2.86 Nucleated RBC % 0 D-Dimer Quant (PE/DVT) 0.66 H* Sodium 139 Potassium 3.6 Chloride 106 Carbon Dioxide 24.0 Anion Gap 9 BUN 14 Creatinine 0.53 L Estim Creat Clear Calc 175.48 Est GFR (MDRD) Af Amer 168 Est GFR (MDRD) Non-Af 139 BUN/Creatinine Ratio 26.5 H Glucose 119 H Calcium 8.9 Radiography Chest X-Ray - ED: 1 View, Read by ED Physician, Read by Radiologist and No Acute Disease Diagnostic Testing: Clinical Impression(s) from Imaging Studies Chest X-Ray 10/22/22 20:00 IMPRESSION: No radiographic evidence of acute cardiopulmonary disease. Electronically Signed: Conner Alvarez MD at 20:11 EST , Portable 1 view chest x-ray was obtained. On my independent interpretation, lung cornejo are clear. There is normal cardiac silhouette. Bony thorax is normal. There is no acute process noted. Radiologist also interpreted the x-ray and agrees. Because of the elevated D-dimer, CTA of the chest was obtained. Treatment and Re-Evaluation Narrative: On reevaluation, patient states she still feels short of breath. Patient was given a DuoNeb aerosol here. CTA of the chest is pending. Patient was turned over to overnight physician pending CTA results. Discharge Plan Triage Chief Complaint: Shortness of Breath ED Provider: Vinay Villa Dx/Rx/DC Orders Clinical Impression: Dyspnea Instructions: ED Dyspnea Prescriptions: No Action omeprazole 40 mg capsule,delayed release(DR/EC) 40 mg PO DAILY phenazopyridine [Pyridium] 200 MG tablet 200 mg PO TID Qty: 10 0RF sulfamethoxazole-trimethoprim [Bactrim DS] 800-160 mg tablet 1 tab PO BID 7 Days Qty: 14 0RF Primary Care Provider: Ian Mon Referrals: Ian Mon MD [Primary Care Provider] -
[2022-10-22 23:13] VITALS: RESP 16; O2SAT 96
[2022-10-22 23:28] LABS: Absolute Lymphocyte Count 2.86 X10^3/uL (0.83-4.51); Absolute Neutrophil Count 16.2 X10^3/uL (2.0-7.7); Basophil# 0.05 X10^3/uL; Basophil% 0.2 % (0-1); Eosinophil# 0.12 X10^3/uL; Eosinophils% 0.6 % (0-5); Hematocrit 42.9 % (37-47); Hemoglobin 14.4 g/dL (12.0-15.0); Lymphocyte # 2.86 X10^3/ul (0.83-4.51); Lymphocyte % 13.6 % (19-41); Mean Corp Hgb Conc 33.6 g/dL (32-36); Mean Corpuscular Hgb 28.9 pg (27.0-32.0); Mean Platelet Vol. 10.3 fl (6.2-12.0); Monocyte# 1.35 X10^3/uL; Monocyte% 6.4 % (0-10); NRBC Flagged by Analyzer 0 % (0-5); Neutrophil # 16.21 X10^3/uL (2.7-7.7); Neutrophil % 77.2 % (47-70); Platelet Count 278 K/mm3 (150-450); RBC Distribution Width CV 12.5 % (11.6-14.6); RBC Distribution Width SD 38.9 fl (35.1-43.9); Red Blood Count 4.99 M/mm3 (4.2-5.4)
[2022-10-22 23:31] LABS: Anion Gap 9 (5-15); BUN 14 mg/dL (7-18); BUN/Creat Ratio 26.5 RATIO (10-20); Calcium,Total 8.9 mg/dL (8.5-10.1); Chloride 106 mmol/L (98-107); Creatinine, Serum 0.53 mg/dL (0.55-1.02); EST Glomerular Filtration Rate 139 mL/min (>60); Est Glom Filt Rate - Afr Amer 168 mL/min (>60); Estimated Creatinine Clearance 175.48 ml/min; Glucose 119 mg/dL (74-106); Potassium 3.6 mmol/L (3.5-5.1); Sodium Level 139 mmol/L (136-145)
[2022-10-22 23:32] VITALS: O2SAT 96
[2022-10-22 23:54] LABS: D-Dimer Quantitative (DVT/PE) 0.66 FEU/ug/m (0.27-0.49)
[2022-10-23] MEDS: Ipratropium/Albuterol Sulfate 3 ML AMPUL.NEB INHALATION (00:51)
[2022-10-23 00:52] VITALS: PULSE 105; RESP 18
[2022-10-23 02:42] LABS: Lactic Acid 0.9 mmol/L (0.4-1.9)
[2022-10-23 03:03] VITALS: PULSE 124; RESP 24; O2SAT 88
[2022-10-23 03:04] VITALS: O2SAT 92
[2022-10-23] MEDS: Doxycycline 100 MG CAPSULE PO (03:47)
[2022-10-23 03:57] VITALS: BP 111/69; PULSE 118; RESP 16; O2SAT 92
--- NOTE | 2022-10-23 23:55 | CT_ITS ---
STUDY: CTA CHEST REASON FOR EXAM: Female, 37 years old. Elevated D-dimer RADIATION DOSAGE (If Supplied By Facility): CTDIvol = ( 12.32 ) mGy, DLP = ( 414.18 ) mGycm TECHNIQUE: The examination was performed with the intravenous administration of IV 100mL Isovue-370. Post-processing of the angiographic images was performed, with multiplanar reformation and 3D reconstruction. Individualized dose optimization techniques were used for this CT. COMPARISON: CT chest 06/28/2021 FINDINGS: LUNGS: Scattered bilateral groundglass opacities and scattered centrilobular nodularity. Bilateral lower lobe pulmonary nodules, the largest in the right lower lobe measuring 5 mm (2-115), similar compared to the prior. AORTA/GREAT VESSELS: No aneurysm.. PULMONARY VESSELS: Normal. PLEURA: Normal. MEDIASTINUM: Mildly enlarged bilateral hilar lymph nodes, right greater than left, and mediastinal lymph nodes. No coronary artery calcifications. UPPER ABDOMEN: Normal. BONES/SOFT TISSUES: Normal. OTHER: None. CT/CTA Chest W/WO Contrast IMPRESSION: 1. No pulmonary embolism to the subsegmental level. 2. Scattered bilateral groundglass opacities and centrilobular nodularity, likely represents multifocal infection including viral pneumonia, infectious bronchiolitis or aspiration pneumonitis. 3. Mildly enlarged intrathoracic lymphadenopathy. 4. Pulmonary nodules measuring up to 5 mm, similar compared to the prior. *Fleischner Society Recommendations (Radiology 2005;[id number].) (Follow-up and management of nodules smaller than 8 mm detected incidentally at non-screening CT. Newly detected indeterminate nodule in persons 35 years of age or older.) Low risk patient: Minimal or absent history of smoking and of other known risk factors. <= 4mm: No followup needed >4-6mm: Follow-up CT at 12 months, if unchanged - no further followup >6-8mm: Initial Follow-up CT at 6-12 months, then at 18-24 months if no change >8mm: Follow-up CT at 3, 9, and 24 months; FDG PET scan; and or biopsy High risk patient: History of smoking or of other known risk factors. <= 4mm: Follow-up CT at 12 months, if unchanged - no further followup >4-6mm: Initial Follow-up CT at 6-12 months, then at 18-24 months if no change >6-8mm: Initial Follow-up CT at 3-6 months, then at 9-12 and 24 months if no change >8mm: Follow-up CT at 3, 9, and 24 months; FDG PET scan; and or biopsy Note: Non-solid (ground-glass) or partly solid nodules may require longer follow-up to Electronically Signed: Nolan Argueta MD at 1:16 EST ,
== END 2022-10-23 03:58 | disposition home or self-care (01) ==
PROVIDERS: Emergency Medicine; Emergency Provider Emergency Medicine; PCP Family Medicine; Visit Provider Emergency Medicine
DX: R06.00 Dyspnea, unspecified (principal); Z87.891 Personal history of nicotine dependence; Z87.442 Personal history of urinary calculi; R06.02 Shortness of breath
CPT/HCPCS: 36415; 71045; 71275; 80048; 83605; 85025; 85379; 87428; 94640; 94760; 99284; Q9967

== ENCOUNTER 2023-04-04 14:00 | Emergency (ER) | payer MEDICAID, SELFPAY ==
[2023-04-04 14:01] VITALS: BP 119/84; PULSE 101; RESP 20; TEMP 36.6; O2SAT 95; BMI 34.7
--- NOTE | 2023-04-04 14:26 | EDS_ITS ---
HPI History of Present Illness Chief Complaint: Shortness of Breath Informant: patient Onset/Context/Timing Onset: Yesterday Context: gradual Timing: Continuous Quality: Positive for Dyspnea on exertion and Wheezing Worsened by: Exertion Relieved by: Rest Associated Symptoms cough; Negative for rhinorrhea, post nasal drip, ear pain, fever, sore throat, chills, sweats, clear sputum, white sputum, yellow sputum or green sputum Chest Pain: Positive for Pressure Narrative Narrative: Patient presents with shortness of breath that has been getting worse since yesterday. Patient states she has had a cough but denies any sputum production. Patient denies any fevers or chills. Patient states this feels similar to when she has had pneumonia in the past. Patient is concerned about that. Patient states her breathing is worse with exertion and better when she stands still. Patient also noted some wheezing today when she was walking down her steps. Patient denies any recent travel recent surgery. Patient denies any prior history of PE or DVT. PE Risk Factors: Negative for Cancer, OCP + Smoking + > 35, Prior DVT or PE, Recent immobilization, Recent surgery or Recent travel [facility] Medical History (Updated 04/04/23 @ 15:[address] Vinay Villa, DO) Kidney disease Kidney stones Pneumonia Smoker Wheezes Home Medications omeprazole 40 mg capsule,delayed release 40 mg PO DAILY 12/09/21 [History Last Taken Unknown] azelastine 137 mcg (0.1 %) nasal spray aerosol 2 spray intranasal BID #30 mL 10/23/22 [Rx Last Taken Unknown] doxycycline monohydrate 100 mg capsule 100 mg PO BID #20 CAPSULES 10/23/22 [Rx Last Taken Unknown] promethazine 6.25 mg-codeine 10 mg/5 mL syrup 5 ml PO 4X/DAY PRN PRN cough 7 days #140 mL 10/23/22 [Rx Last Taken Unknown] albuterol sulfate 90 mcg/actuation aerosol inhaler (Ventolin HFA) 1 - 2 puff inhalation Q4H PRN PRN Wheezing #1 device 04/04/23 [Rx Last Taken Unknown] Allergy/AdvReac Type Severity Reaction Status Date / Time hydrocodone bitartrate Allergy Hives Verified 04/04/23 14:03 [From [facility]] Family History Other Heart disease Surgical History History of hysterectomy Social History household members: none Smoking Status: Former smoker alcohol intake: current alcohol intake frequency: other substance use type: does not use ROS ROS ED Constitutional Constitutional ED: Denies chills or fever(s) Eyes Eyes: Reports blurry vision; Denies diplopia ENT ENT ED: Denies rhinorrhea or sore throat Cardiovascular Cardiovascular: Reports chest pain; Denies palpitations Respiratory/Chest Respiratory/Chest: Reports cough and dyspnea Gastrointestinal Gastrointestinal: Denies nausea or vomiting Genitourinary Genitourinary ED: Denies dysuria or hematuria Musculoskeletal Musculoskeletal: Reports back pain; Denies neck pain Integumentary Denies abscess or rash Neurologic Neurologic: Denies headache(s) or weakness Allergic/Immunologic Allergic/Immunologic ED: Denies mouth swelling or urticaria EXAM Physical Exam Const Vital Signs: 04/04/23 14:01 04/04/23 14:47 04/04/23 14:48 Temperature 97.8 F Temperature Source Temporal Pulse Rate 101 H 93 Respiratory Rate 20 H 18 Respiratory Effort Normal Non-Labored Respiratory Depth Normal Respiratory Pattern Normal Normal Blood Pressure 119/84 H Blood Pressure Mean 95 Pulse Ox 95 Oxygen Delivery Method Room Air Room Air Positive well nourished, well developed and obese General Appearance ED: well developed and NAD Nutritional Appearance: obese HEENT Reports moist mucous membranes Neck supple and no JVD Resp normal respiratory effort Auscultation: wheezes and diminished lung sounds Cardio regular rate and regular rhythm GI normal to inspection, nondistended, normoactive bowel sounds and non-tender Palpation: soft Extremity normal to inspection General Extremety ED: Negative for edema or tenderness General Extremity: Negative for edema Neuro oriented x3, CN's II-XII intact bilaterally and no sensory deficits noted Sensorium / Orientation: alert Motor Exam: strength 5/5 throughout Psych mental status grossly normal Skin no rashes or lesions noted MDM MDM MDM Narrative Medical decision making narrative: Differential diagnosis includes pneumonia, pulmonary embolism, pneumothorax, cardiac dysrhythmia, cardiac ischemia, COVID-19 infection, influenza infection, and other viral upper respiratory infection. Chest x-ray will be obtained to assess for pneumonia and pneumothorax. EKG will be obtained to assess for cardiac dysrhythmia and cardiac ischemia. CBC will be obtained to assess for leukocytosis and anemia. Basic metabolic profile will be obtained to assess for electrolyte abnormality and renal function. D-dimer will be obtained to assess for pulmonary embolism. High-sensitivity troponin will be obtained to assess for cardiac ischemia. COVID-19 rapid antigen will be obtained to assess for COVID-19 infection. Influenza A and influenza B antigens will be obtained to assess for influenza infection. Lab Data Attestation: I reviewed the patient's lab results. Lab results narrative: CBC was reviewed. There is a slight leukocytosis of 11.4. The remainder is within normal limits. D-dimer was reviewed and was less than 0.27. High- sensitivity troponin was reviewed and was less than 3. Basic metabolic profile was reviewed and was within normal limits. COVID-19 rapid antigen was reviewed and was negative. Influenza A and influenza B antigens were reviewed and were negative. Labs: Laboratory Results - last 24 hr 04/04/23 14:35 WBC 11.4 H RBC 4.81 Hgb 14.0 Hct 42.7 MCV 88.8 MCH 29.1 MCHC 32.8 RDW Std Deviation 40.9 RDW Coeff of Raeann 12.6 Plt Count 255 MPV 10.5 Immature Gran % (Auto) 0.400 Neut % (Auto) 57.1 Lymph % (Auto) 27.8 [place] % (Auto) 7.0 Eos % (Auto) 6.8 H Baso % (Auto) 0.9 Absolute Neuts (auto) 6.5 Absolute Lymphs (auto) 3.16 Nucleated RBC % 0 D-Dimer Quant (PE/DVT) < 0.27 L Sodium 142 Potassium 4.1 Chloride 112 H Carbon Dioxide 26.0 Anion Gap 4 L BUN 12 Creatinine 0.60 Estim Creat Clear Calc 158.11 Est GFR (MDRD) Af Amer 144 Est GFR (MDRD) Non-Af 119 BUN/Creatinine Ratio 19.9 Glucose 103 Calcium 8.7 Troponin I High Sens < 3 L Radiography Chest X-Ray - ED: 2 View, Read by ED Physician, Read by Radiologist and No Acute Disease Diagnostic Testing: Clinical Impression(s) from Imaging Studies Chest X-Ray 04/04/23 14:32 IMPRESSION: No acute cardiopulmonary disease. Electronically Signed: Rayray Arteaga MD at 15:00 EDT Reading Location ID and State: [id number] / Unknown , Service support , [place] and lateral chest x-ray was obtained. There are 2 views. On my independent interpretation, lung cornejo are clear. There is normal cardiac silhouette. Bony thorax is normal. There is no acute process noted. Radiologist also interpreted the x-ray and agrees. EKG Initial EKG: Attestation: I personally reviewed and interpreted this EKG as follows: Interpretation: Sinus Rhythm (93) and No Acute Injury Pattern Comments: EKG was obtained. On my independent interpretation, it showed a normal sinus rhythm with a rate of 93. [place] interval, QRS interval, and QTc intervals were all normal. [place] was normal. There are no acute ST or T wave changes. Prior EKG tracings: available for review Prior: Unchanged (06/28/2021) Treatment and Re-Evaluation :: Patient was given a DuoNeb aerosol here. Patient was advised of her findings. Patient was advised that this may be a viral upper respiratory infection. Patient was instructed to follow-up with her primary care physician in 5 to 7 days. Patient understood and was agreeable with plan. All questions were answered. Discharge Plan Triage Chief Complaint: Shortness of Breath ED Provider: Vinay Villa Dx/Rx/DC Orders Clinical Impression: Viral upper respiratory tract infection Instructions: ED URI, Viral, No Abx (Adult) Prescriptions: Continued albuterol sulfate [Ventolin HFA] 90 mcg/actuation HFA aerosol inhaler 1 - 2 puff inhalation Q4H PRN PRN (Reason: Wheezing) Qty: 1 0RF No Action omeprazole 40 mg capsule,delayed release(DR/EC) 40 mg PO DAILY doxycycline monohydrate 100 mg capsule 100 mg PO BID Qty: 20 0RF azelastine 137 mcg (0.1 %) aerosol,spray 2 spray intranasal BID Qty: 30 0RF Rx Instructions: administer into each nostril promethazine-codeine 6.25-10 mg/5 mL syrup 5 ml PO 4X/DAY PRN PRN (Reason: cough) 7 Days Qty: 140 0RF Primary Care Provider: Ian Mon Referrals: Ian Mon MD [Primary Care Provider] - 5-7 Days Disposition Disposition: Home, Self Care
--- NOTE | 2023-04-04 14:32 | RAD_ITS ---
INDICATION: Cough EXAMINATION/TECHNIQUE: X-RAY - XR Chest 2 Views COMPARISON: None. FINDINGS: LINES/DEVICES: None. LUNGS: No consolidation, edema or effusion. No pneumothorax. MEDIASTINUM AND CARDIOVASCULAR STRUCTURES: Cardiac silhouette not enlarged. Central airways and mediastinal contour are unremarkable. BONES AND SOFT TISSUES: Unremarkable. RAD/Chest PA and Lateral IMPRESSION: No acute cardiopulmonary disease. Electronically Signed: Rayray Arteaga MD at 15:00 EDT Reading Location ID and State: [id number] / Unknown , Service support ,
[2023-04-04] MEDS: Ipratropium/Albuterol Sulfate 3 ML AMPUL.NEB INHALATION (14:45)
[2023-04-04 14:47] VITALS: O2SAT 96
[2023-04-04 14:48] VITALS: PULSE 93; RESP 18
[2023-04-04 14:48] LABS: Absolute Lymphocyte Count 3.16 X10^3/uL (0.83-4.51); Absolute Neutrophil Count 6.5 X10^3/uL (2.0-7.7); Basophil% 0.9 % (0-1); Eosinophil# 0.77 X10^3/uL; Eosinophils% 6.8 % (0-5); Hematocrit 42.7 % (37-47); Lymphocyte # 3.16 X10^3/ul (0.83-4.51); Lymphocyte % 27.8 % (19-41); Mean Corp Hgb Conc 32.8 g/dL (32-36); Mean Corpuscular Hgb 29.1 pg (27.0-32.0); Mean Corpuscular Volume 88.8 fL (81-99); Mean Platelet Vol. 10.5 fl (6.2-12.0); NRBC Flagged by Analyzer 0 % (0-5); Neutrophil # 6.51 X10^3/uL (2.7-7.7); Neutrophil % 57.1 % (47-70); Platelet Count 255 K/mm3 (150-450); RBC Distribution Width CV 12.6 % (11.6-14.6); RBC Distribution Width SD 40.9 fl (35.1-43.9); Red Blood Count 4.81 M/mm3 (4.2-5.4); White Blood Count 11.4 K/mm3 (4.4-11.0)
[2023-04-04 15:00] LABS: Anion Gap 4 (5-15); BUN 12 mg/dL (7-18); BUN/Creat Ratio 19.9 RATIO (10-20); Calcium,Total 8.7 mg/dL (8.5-10.1); Chloride 112 mmol/L (98-107); EST Glomerular Filtration Rate 119 mL/min (>60); Est Glom Filt Rate - Afr Amer 144 mL/min (>60); Estimated Creatinine Clearance 158.11 ml/min; Glucose 103 mg/dL (74-106); Potassium 4.1 mmol/L (3.5-5.1); Sodium Level 142 mmol/L (136-145); Troponin-I HS < 3 pg/mL (3.0-54.0)
[2023-04-04 15:04] LABS: D-Dimer Quantitative (DVT/PE) < 0.27 FEU/ug/m (0.27-0.49)
== END 2023-04-04 16:02 | disposition home or self-care (01) ==
PROVIDERS: Emergency Provider Emergency Medicine; PCP Family Medicine; Visit Provider Emergency Medicine
DX: J06.9 Acute upper respiratory infection, unspecified (principal); Z87.891 Personal history of nicotine dependence; Z90.710 Acquired absence of both cervix and uterus
CPT/HCPCS: 71046; 80048; 84484; 85025; 85379; 87428; 93005; 94640; 99284; A4216

== ENCOUNTER 2023-06-01 11:51 | Emergency (ER) | payer MEDICAID, SELFPAY ==
[2023-06-01 11:52] VITALS: BP 109/83; PULSE 107; RESP 22; TEMP 36.3; O2SAT 95; BMI 39.7
--- NOTE | 2023-06-01 12:08 | EX.ED.VIS.UR ---
HPI HPI - URI History of Present Illness Chief Complaint: Shortness of Breath Narrative Narrative: 38-year-old female with recent diagnosis of influenza. Patient is not on Tamiflu. She states he was diagnosed about 5 days ago. Patient states she has had fevers and chills. She has cough and shortness of breath. Patient does not have a history of asthma but states when she gets sick she generally gets very sick. Patient states that last night when she was sleeping her oxygen was going into the 70s. She supposed to be getting worked up for sleep apnea, however since she is sick she is unable to do the sleep apnea study. Not hypoxic when awake. She states she woke up a little bit lightheaded and dizzy but feels improved currently. ROS ROS ED Constitutional Constitutional ED: Reports chills and fever(s); Denies sweats Eyes Eyes: Denies blurry vision or change in vision ENT ENT ED: Reports rhinorrhea; Denies ear pain or sore throat Cardiovascular Cardiovascular: Denies chest pain, palpitations or racing heartbeat Respiratory/Chest Respiratory/Chest: Reports cough and dyspnea; Denies sputum Gastrointestinal Gastrointestinal: Denies abdominal pain, constipation, diarrhea, nausea or vomiting Genitourinary Genitourinary ED: Denies dysuria, hematuria or urinary frequency Musculoskeletal Musculoskeletal: Denies arthralgias, myalgias or neck pain Integumentary Denies abscess, Abrasions or rash Neurologic Neurologic: Denies headache(s), paresthesias or weakness Psychiatric Psychiatric: Denies anxiety, depression, suicidal ideation or suicidal thoughts Endocrine Endocrinology: Denies polydipsia or polyuria [facility] Medical History Kidney disease Kidney stones Pneumonia Smoker Wheezes Home Medications omeprazole 40 mg capsule,delayed release 40 mg PO DAILY 12/09/21 [History Last Taken Unknown] azelastine 137 mcg (0.1 %) nasal spray aerosol 2 spray intranasal BID #30 mL 10/23/22 [Rx Last Taken Unknown] doxycycline monohydrate 100 mg capsule 100 mg PO BID #20 CAPSULES 10/23/22 [Rx Last Taken Unknown] promethazine 6.25 mg-codeine 10 mg/5 mL syrup 5 ml PO 4X/DAY PRN PRN cough 7 days #140 mL 10/23/22 [Rx Last Taken Unknown] albuterol sulfate 90 mcg/actuation aerosol inhaler (Ventolin HFA) 1 - 2 puff inhalation Q4H PRN PRN Wheezing #1 device 04/04/23 [Rx Last Taken Unknown] albuterol sulfate 90 mcg/actuation aerosol inhaler (Ventolin HFA) 1 - 2 puff inhalation Q4H PRN PRN Wheezing #8.5 grams 06/01/23 [Rx Last Taken Unknown] prednisone 50 mg tablet 50 mg PO DAILY #5 tabs 06/01/23 [Rx Last Taken Unknown] Allergy/AdvReac Type Severity Reaction Status Date / Time hydrocodone bitartrate Allergy Hives Verified 06/01/23 11:52 [From [place]] Family History Other Heart disease Surgical History History of hysterectomy Social History household members: none Smoking Status: Current every day smoker tobacco type: cigarettes alcohol intake: current alcohol intake frequency: other substance use type: does not use EXAM Physical Exam Const Vital Signs: 06/01/23 11:52 06/01/23 12:13 06/01/23 12:53 Temperature 97.3 F L Temperature Source Temporal Pulse Rate 107 H 103 H Respiratory Rate 22 H 18 Respiratory Effort Short of Breath Respiratory Depth Normal Respiratory Pattern Normal Blood Pressure 109/83 H Blood Pressure Mean 91 Pulse Ox 95 Oxygen Delivery Method Room Air Positive well nourished General Appearance ED: NAD; Negative for pallor HEENT Reports moist mucous membranes normocephalic and atraumatic Eyes PERRL and EOMs intact bilaterally Resp Resp Narrative: Hip neck. Auscultation: wheezes expiratory wheezes and throughout Cardio Rate: tachycardic Rhythm: regular rhythm GI non-tender Extremity normal to inspection Neuro oriented x3 and CN's II-XII intact bilaterally Sensorium / Orientation: alert Motor Exam: strength 5/5 throughout Psych mental status grossly normal Skin General Skin Exam: Negative for jaundice or pallor MDM MDM MDM Narrative Medical decision making narrative: Patient with influenza. She is outside of the treatment window. She is wheezing on exam today so I will treat her with breathing treatments and prednisone. Chest x-ray, interpretation shows no acute process. Improved with breathing treatments. I will send her home with a burst of prednisone and albuterol inhaler. Return precautions were discussed. Impression: 1. Influenza Radiography Diagnostic Testing: Clinical Impression(s) from Imaging Studies Chest X-Ray 06/01/23 12:11 IMPRESSION: Normal x-ray examination of the chest. Electronically Signed: Justice Samaniego MD at 12:36 EDT , Discharge Plan Triage Chief Complaint: Shortness of Breath ED Provider: Brady Villarreal Dx/Rx/DC Orders Instructions: ED Bronchitis with Wheezing (Adult) Prescriptions: New prednisone 50 mg tablet 50 mg PO DAILY Qty: 5 0RF albuterol sulfate [Ventolin HFA] 90 mcg/actuation HFA aerosol inhaler 1 - 2 puff inhalation Q4H PRN PRN (Reason: Wheezing) Qty: 8.5 0RF No Action omeprazole 40 mg capsule,delayed release(DR/EC) 40 mg PO DAILY doxycycline monohydrate 100 mg capsule 100 mg PO BID Qty: 20 0RF azelastine 137 mcg (0.1 %) aerosol,spray 2 spray intranasal BID Qty: 30 0RF Rx Instructions: administer into each nostril promethazine-codeine 6.25-10 mg/5 mL syrup 5 ml PO 4X/DAY PRN PRN (Reason: cough) 7 Days Qty: 140 0RF albuterol sulfate [Ventolin HFA] 90 mcg/actuation HFA aerosol inhaler 1 - 2 puff inhalation Q4H PRN PRN (Reason: Wheezing) Qty: 1 0RF Primary Care Provider: Ian Mon Referrals: Ian Mon MD [Primary Care Provider] - Disposition Disposition: Home, Self Care
[2023-06-01] MEDS: Albuterol 2.5 MG/3 ML VIAL.NEB. INHALATION (12:11)
[2023-06-01] MEDS: Ipratropium/Albuterol Sulfate 3 ML AMPUL.NEB INHALATION (12:11)
--- NOTE | 2023-06-01 12:11 | RAD_ITS ---
STUDY: X-RAY CHEST REASON FOR EXAM: Female, 38 years old. Fever TECHNIQUE: Single AP portable view of the chest. COMPARISON: Comparison is made with prior study dated April 04, 2023. FINDINGS: The lungs are clear and expanded. There is no demonstrated pleural abnormality. Normal size heart. Normal mediastinum and анна. Normal visualized pulmonary arteries. Normal visualized aortic arch and descending thoracic aorta. Normal visualized thoracic spine. Normal visualized ribs, clavicles, and shoulders. There is no demonstrated abnormality of the visualized soft tissue structures of the upper abdomen. RAD/Chest 1 View (Portable) IMPRESSION: Normal x-ray examination of the chest. Electronically Signed: Justice Samaniego MD at 12:36 EDT ,
[2023-06-01 12:13] VITALS: PULSE 103; RESP 18
[2023-06-01] MEDS: predniSONE 20 MG Tablet 60 MG PO (12:52)
== END 2023-06-01 13:29 | disposition home or self-care (01) ==
PROVIDERS: Emergency Provider Student in an Organized Health Care Education/Training Program; PCP Family Medicine; Visit Provider Student in an Organized Health Care Education/Training Program
DX: R06.02 Shortness of breath (principal); F17.210 Nicotine dependence, cigarettes, uncomplicated; J11.1 Influenza due to unidentified influenza virus with other respiratory manifestations; Z90.710 Acquired absence of both cervix and uterus
CPT/HCPCS: 71045; 94640; 99282

== ENCOUNTER 2023-08-06 17:06 | Emergency (ER) | payer MEDICAID, SELFPAY ==
[2023-08-06 17:07] VITALS: BP 109/72; PULSE 97; RESP 14; TEMP 36.8; O2SAT 98; BMI 42.0
--- NOTE | 2023-08-06 17:18 | EDS_ITS ---
HPI HPI - Fall History of Present Illness Chief Complaint: Fall Detail of Chief Complaint: Today of low back pain. Post fall. Informant: patient Occured/Mechanism Occurred: Today and Hours Mechanism/Context: Yes same level fall and Yes slip Usually ambulates: Without assistance Pain/Injury Pain Location: back Quality of Pain: Sharp and Stabbing Current Severity: Moderate Maximum Severity: Moderate Associated Symptoms Associated Symptoms: Negative for Parasthesias, Weakness, Loss of function, Inability to ambulate, Loss of consciousness or Amnesia Narrative Narrative: 38-year-old female no seen past medical history. Was rushing to get to work slipped on the steps fell landing on her buttock injuring her lower back. No LOC. No head injury. No prior back history or surgery. Denies other complaints. Prior similar symptoms: No Recent Illness/Hospitalization: No PFSH PFSH Medical History Kidney disease Kidney stones Pneumonia Smoker Wheezes Home Medications omeprazole 40 mg capsule,delayed release 40 mg PO DAILY 12/09/21 [History Last Taken Unknown] azelastine 137 mcg (0.1 %) nasal spray aerosol 2 spray intranasal BID #30 mL 10/23/22 [Rx Last Taken Unknown] doxycycline monohydrate 100 mg capsule 100 mg PO BID #20 CAPSULES 10/23/22 [Rx Last Taken Unknown] promethazine 6.25 mg-codeine 10 mg/5 mL syrup 5 ml PO 4X/DAY PRN PRN cough 7 days #140 mL 10/23/22 [Rx Last Taken Unknown] albuterol sulfate 90 mcg/actuation aerosol inhaler (Ventolin HFA) 1 - 2 puff inhalation Q4H PRN PRN Wheezing #1 device 04/04/23 [Rx Last Taken Unknown] albuterol sulfate 90 mcg/actuation aerosol inhaler (Ventolin HFA) 1 - 2 puff inhalation Q4H PRN PRN Wheezing #8.5 grams 06/01/23 [Rx Last Taken Unknown] prednisone 50 mg tablet 50 mg PO DAILY #5 tabs 06/01/23 [Rx Last Taken Unknown] oxycodone-acetaminophen 5 mg-325 mg tablet (Percocet) 1 tab PO Q8H PRN pain 3 days #10 tabs 08/06/23 [Rx Last Taken Unknown] Allergy/AdvReac Type Severity Reaction Status Date / Time hydrocodone bitartrate Allergy Hives Verified 08/06/23 17:07 [From [place]] Family History Other Heart disease Surgical History History of hysterectomy Social History household members: none Smoking Status: Former smoker alcohol intake: current alcohol intake frequency: other substance use type: does not use ROS ROS ED ROS Narrative Denies recent illness. Review of Systems ROS Unobtainable: Denies due to encephalopathy Constitutional Constitutional ED: Denies chills or fever(s) Eyes Eyes: Denies blurry vision ENT ENT ED: Denies ear pain Cardiovascular Cardiovascular: Denies chest pain Respiratory/Chest Respiratory/Chest: Denies cough Gastrointestinal Gastrointestinal: Denies abdominal pain Genitourinary Genitourinary ED: Denies dysuria Musculoskeletal Musculoskeletal: Reports back pain; Denies arthralgias, myalgias or neck pain Integumentary Denies abscess Neurologic Neurologic: Denies headache(s) Psychiatric Psychiatric: Denies anxiety Endocrine Endocrinology: Denies polydipsia Hematologic/Lymphatic Hematologic/Lymphatic: Denies easy bleeding, easy bruising or lymphadenopathy Allergic/Immunologic Allergic/Immunologic ED: Denies mouth swelling, tongue swelling or urticaria EXAM Physical Exam Narrative Exam Narrative: Well-appearing 38-year-old female. Vital signs stable afebrile. H EENT exam unremarkable atraumatic. Nontender. Pupils round react to light. Neck nontender. Full range of motion. Lungs clear to auscultation. Heart regular rhythm. Chest wall and ribs nontender. Abdomen soft nontender. Moving all 4 e xtremities. Normal bracelet maker novelty strength. Normal dorsi plantarflexion. Normal sensation. No cauda equina. Normal motor strength. Back tenderness over lumbar spine. No ecchymosis or bruising. No bony deformity. Neurologic exam normal. GCS of 15. Const Vital Signs: 08/06/23 17:07 Temperature 98.2 F Temperature Source Temporal Pulse Rate 97 Respiratory Rate 14 Blood Pressure 109/72 Blood Pressure Mean 84 Pulse Ox 98 Oxygen Delivery Method Room Air Positive well nourished and well developed; Negative for cachectic, contractures or unkempt General Appearance ED: well developed and NAD; Negative for unkempt, cachectic or contractures Nutritional Appearance: Negative for cachectic HEENT Reports normocephalic atraumatic; Negative for trauma, contusion, hematoma or tenderness Eyes PERRL and EOMs intact bilaterally General Eye ED: Negative for pale conjunctiva or scleral icterus Neck full ROM, no lymphadenopathy and supple General: Negative for tenderness Chest Wall inspection of chest normal and palpation of chest normal Chest: Negative for other Resp normal respiratory effort, no retractions and clear to auscultation bilaterally Effort and Inspection: Negative for pain with movement Auscultation: Negative for rales, rhonchi or wheezes Cardio regular rate, regular rhythm, S1 normal heart sound, S2 normal heart sound and no murmurs Rate: Negative for bradycardia or tachycardic Rhythm: Negative for abnormal rhythm GI non-tender and non-distended Inspection: Negative for abdominal distention Auscultation: normoactive bowel sounds Palpation: soft; Negative for guarding Back/Spine no CVA tenderness General Back: Negative for CVA tenderness Cervical Spine: Negative for cervical spine tenderness Thoracic Spine / Upper Back: Negative for ROM limited Lumbar Spine / Lower Back: lumbar spinal tenderness Neuro oriented x3, CN's II-XII intact bilaterally, moves all extremities, no focal motor deficits and no sensory deficits noted [place] Coma Scale: document GCS findings Spontaneous Obeys Commands Oriented 15 Sensorium / Orientation: alert, oriented to person, oriented to place and oriented to time; Negative for orientation impaired, confused, lethargic or stuporous Motor Exam: strength 5/5 throughout Psych mental status grossly normal and thought process normal Appearance: Negative for unkempt Attitude: No agitated Mood & Affect: Negative for depressed, anxious or tearful Skin General Skin Exam: Negative for other Lesions: no lesions Rashes: no rashes Trauma: Negative for abrasion or laceration MDM MDM MDM Narrative Medical decision making narrative: 38-year-old female fell when she slipped on steps complaint low back pain. X- ray being obtained lumbar spine. Percocet p.o. for pain. No head injury. Repeat exam patient is doing well. Motrin and Percocet for pain. Prescription for 10 Percocet written. Ice to the area. Air doughnut. Follow-up as needed. History & Record Review Discussion w/independent historian: Patient Radiography Diagnostic Testing: Lumbar spine x-ray, 2 views, interpreted by myself shows no acute lumbar fracture. There is angulation of the distal end of the tailbone which may or may not be a fracture. I did go over the x-rays with the patient. Discharge Plan Triage Chief Complaint: Fall ED Provider: Armen Grace Dx/Rx/DC Orders Clinical Impression: Lumbar contusion, Fall Instructions: ED Back Contusion Prescriptions: New oxycodone-acetaminophen [Percocet] 5-325 mg tablet 1 tab PO Q8H PRN (Reason: pain) 3 Days Qty: 10 0RF No Action omeprazole 40 mg capsule,delayed release(DR/EC) 40 mg PO DAILY doxycycline monohydrate 100 mg capsule 100 mg PO BID Qty: 20 0RF azelastine 137 mcg (0.1 %) aerosol,spray 2 spray intranasal BID Qty: 30 0RF Rx Instructions: administer into each nostril promethazine-codeine 6.25-10 mg/5 mL syrup 5 ml PO 4X/DAY PRN PRN (Reason: cough) 7 Days Qty: 140 0RF albuterol sulfate [Ventolin HFA] 90 mcg/actuation HFA aerosol inhaler 1 - 2 puff inhalation Q4H PRN PRN (Reason: Wheezing) Qty: 1 0RF prednisone 50 mg tablet 50 mg PO DAILY Qty: 5 0RF albuterol sulfate [Ventolin HFA] 90 mcg/actuation HFA aerosol inhaler 1 - 2 puff inhalation Q4H PRN PRN (Reason: Wheezing) Qty: 8.5 0RF Primary Care Provider: Ian Mon Referrals: Ian Mon MD [Primary Care Provider] - 10-14 Days if not better Activity Restrictions/Additional Instructions: Ice to your low back and tailbone. Percocet for more severe pain and Motrin for pain and inflammation. Sit on an air donut or a pillow. Follow-up with your doctor if not improving. Disposition Disposition: Home, Self Care
[2023-08-06] MEDS: Oxycodone/Apap 5/325 Tablet PO (17:24)
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
== END 2023-08-06 18:12 | disposition home or self-care (01) ==
PROVIDERS: Emergency Provider Emergency Medicine; PCP Family Medicine; Visit Provider Emergency Medicine
DX: S30.0XXA Contusion of lower back and pelvis, initial encounter (principal); Z87.891 Personal history of nicotine dependence; W10.9XXA Fall (on) (from) unspecified stairs and steps, initial encounter; Z90.710 Acquired absence of both cervix and uterus
CPT/HCPCS: 72100; 99282

== ENCOUNTER 2023-10-03 18:41 | Emergency (ER) | payer MEDICAID, SELFPAY ==
[2023-10-03 18:42] VITALS: BP 122/78; PULSE 107; RESP 18; TEMP 36.4; O2SAT 93; BMI 34.6
--- OUTSIDE RECORDS SUMMARY | 2023-10-03 20:37 | XMS RPT_ITS | CCD ---
Author Name Unknown Address [id number] [place] [address] Organization [facility] Care Team Providers Care Fisher Quahog Name Role Phone MARISOL JAMES Unavailable Unavailable PHYSICIAN, NONE Unavailable Unavailable PHYSICIAN, NONE Unavailable Unavailable AUSTYN ORONA Unavailable Unavailable PHYSICIAN, NONE Unavailable Unavailable MARISOL JAMES Unavailable Unavailable PHYSICIAN, NONE Unavailable Unavailable ALYSSA RODRIGUEZ Unavailable Unavailable PHYSICIAN, NONE Unavailable Unavailable SILVA CONKLIN Attending Unavailable ABE EVANGELISTA Referring Unavailable Abe Evangelista Primary Care Unavailable Shaniqua Beckford MD Primary Care Provider Shaniqua Beckford MD Primary Care Provider Shaniqua Beckford MD Primary Care Provider Shaniqua Beckford MD Primary Care Provider Carito MEDEIROS Attending Unavailable SHANIQUA BECKFORD Primary Care Unavailab SHANIQUA Dorsey Primary Care Unavailab SHANIQUA Dorsey Primary Care Unavailab LUIS Neely Attending Unavailable SHANIQUA BECKFORD Primary Care Unavailab le GERMANIA, ALYSSA Referring Unavailable SHANIQUA BECKFORD Primary Care Unavailab le GERMANIA, ALYSSA Referring Unavailable SHANIQUA BECKFORD Primary Care Unavailab le SHANIQUA BECKFORD Primary Care Unavailab le SHANIQUA BECKFORD Primary Care Unavailab SHANIQUA Dorsey Referring Unavailab SHANIQUA Dorsey Primary Care Unavailab JOSE Acosta Attending Unavailable SHANIQUA BECKFORD Primary Care Unavailab SHANIQUA Dorsey Primary Care Unavailab SHANIQUA Dorsey Primary Care UnavailTOOTIE Castro Referring Unavailable PODLOGARTOOTIE Referring Unavailable SHANIQUA BECKFORD Primary Care Unavailab SHANIQUA Dorsey Primary Care Unavailab LizarragaLOGTOOTIE SAENZ Attending Unavailable Allergies Allergy Classification Reported Allergen(s) Allergy Type Date of Onset Reaction(s) Facility (20 sources) Acetaminophen / HYDROcodone; Translations: [HYDROCODONE-ACETA MINOPHEN] Drug Allergy 7 Hives, Swelling [facility] Medications Current Medications Medication Drug Class(es) Dates Sig (Normalized) Sig (Original) amoxicillin 875 mg oral tablet (2 sources) Penicillin-class Antibacterial Start: 11-14-2022 End: 11-24-2022 take 1 tablet by mouth twice daily amoxicillin (AMOXIL) 875 mg tablet Indications: Tooth ache Take 1 tablet by mouth twice daily for 10 days. 20 tablet 0 11/14/2022 11/24/2022 Active Completed/Discontinued Medications Medication Drug Class(es) Dates Sig (Normalized) Sig (Original) [id number] 200 actuat albuterol 0.09 mg/actuat metered dose inhaler (20 sources) beta2-Adrenergic Agonist Start: 05-29-2023 take 2 puff(s) by inhalation every six hours as needed albuterol HFA (PROAIR HFA) 90 mcg/actuation inhaler Indications: Viral URI with cough Inhale 2 Puffs as instructed every 6 hours as needed. 1 Each 0 05/29/2023 Active Problems Active Problems Problem Classification Problem Date Documented Da te Episodic/Chronic Abdominal pain (11 sources) Epigastric pain; Translations: [Epigastric pain] Episodic Allergic reactions (2 sources) Allergy status to narcotic agent status; Translations: [Allergy status to narcotic agent status] Onset: 9 Episodic Diseases of white blood cells (2 sources) Leukocytosis; Translations: [Elevated white blood cell count, unspecified] Chronic Disorders of teeth and jaw (1 source) Toothache; Translations: [Other specified disorders of teeth and supporting structures] Episodic Esophageal disorders (6 sources) Gastroesophageal reflux disease; Translations: [Gastro-esophageal reflux disease without esophagitis] Chronic Hemorrhoids (1 source) Bleeding hemorrhoids; Translations: [Unspecified hemorrhoids] Episodic Immunizations and screening for infectious disease (3 sources) Suspected disease caused by 2019-nCoV; Translations: [Suspected COVID-19 virus infection] Episodic Influenza (2 sources) Influenza due to unidentified influenza virus with other respiratory manifestations; Translations: [Flu due to unidentified influenza virus w oth resp manifest] Onset: 9 Episodic Nausea and vomiting (2 sources) Diarrhea and vomiting; Translations: [Vomiting, unspecified] Episodic Osteoarthritis (1 source) Osteoarthrosis of the carpometacarpal joint of the thumb; Translations: [Unilateral primary osteoarthritis of first carpometacarpal joint, right hand] Chronic Other bone disease and musculoskeletal deformities (1 source) Disorder of bone; Translations: [Disorder of bone, unspecified] Episodic Other circulatory disease (1 source) Respiratory symptom; Translations: [Other specified symptoms and signs involving the circulatory and respiratory systems] Episodic Other connective tissue disease (2 sources) Pain of left heel; Translations: [Pain in left foot] Episodic Other connective tissue disease (1 source) Plantar fasciitis; Translations: [Plantar fascial fibromatosis] Episodic Other connective tissue disease (2 sources) Spasm; Translations: [Other muscle spasm] Episodic Other eye disorders (1 source) Swelling of eyelid; Translations: [Edema of right eye, unspecified eyelid] Episodic Other gastrointestinal disorders (3 sources) Esophageal dysphagia; Translations: [Other dysphagia] Episodic Other gastrointestinal disorders (1 source) Swallowing painful; Translations: [Dysphagia, unspecified] Episodic Other gastrointestinal disorders (1 source) Diarrhea; Translations: [Diarrhea, unspecified] Episodic Other injuries and conditions due to external causes (1 source) Injury of right wrist; Translations: [Unspecified injury of right wrist, hand and finger(s), initial encounter] Episodic Other lower respiratory disease (2 sources) Cough; Translations: [Cough] Onset: 9 Episodic Other lower respiratory disease (2 sources) Dyspnea; Translations: [Shortness of breath] Episodic Other lower respiratory disease (1 source) Wheezing; Translations: [Wheezing] Episodic Other lower respiratory disease (1 source) Snoring; Translations: [Snoring] Episodic Other lower respiratory disease (1 source) Apnea; Translations: [Apnea, not elsewhere classified] Episodic Other lower respiratory disease (1 source) Hypoxia; Translations: [Hypoxemia] 04-13-2023 Episodic Other nervous system disorders (1 source) Carpal tunnel syndrome of right wrist; Translations: [Carpal tunnel syndrome, right upper limb] Chronic Other nervous system disorders (1 source) Ulnar neuropathy; Translations: [Lesion of ulnar nerve, right upper limb] Chronic Other non-traumatic joint disorders (1 source) Pain of right wrist; Translations: [Pain in right wrist] Episodic Other non-traumatic joint disorders (1 source) Chronic pain of right upper limb; Translations: [Pain in right wrist] Episodic Other screening for suspected conditions (not mental disorders or infectious disease) (1 source) Plain X-ray result abnormal; Translations: [Abnormal findings on diagnostic imaging of other specified body structures] Chronic Other skin disorders (1 source) Eruption; Translations: [Rash and other nonspecific skin eruption] Episodic Other upper respiratory disease (1 source) Nasal discharge; Translations: [Other specified disorders of nose and nasal sinuses] Episodic Other upper respiratory disease (1 source) Nasal congestion; Translations: [Nasal congestion] Episodic Other upper respiratory infections (7 sources) Sore throat symptom; Translations: [Acute pharyngitis, unspecified] Episodic Residual codes; unclassified (1 source) Obstructive sleep apnea syndrome; Translations: [Obstructive sleep apnea (adult) (pediatric)] 04-13-2023 Chronic Residual codes; unclassified (2 sources) Acquired absence of both cervix and uterus; Translations: [Acquired absence of both cervix and uterus] Onset: 9 Episodic Residual codes; unclassified (1 source) Early satiety; Translations: [Early satiety] Episodic Residual codes; unclassified (1 source) Family history of breast cancer; Translations: [Family history of malignant neoplasm of breast] Episodic Sprains and strains (1 source) Strain of muscle and/or tendon of forearm; Translations: [Strain of unspecified muscles, fascia and tendons at forearm level, right arm, initial encounter] Episodic Substance-related disorders (2 sources) Nicotine dependence, unspecified, uncomplicated; Translations: [Nicotine dependence, unspecified, uncomplicated] Onset: 9 Chronic Superficial injury; contusion (1 source) Abrasion of right hand, initial encounter; Translations: [Abrasion or friction burn of hand(s) except finger(s) alone, without mention of infection] Episodic Unclassified (1 source) Unknown / UNK(Unknown) Onset: 7 Viral infection (1 source) Viral disease; Translations: [Viral infection, unspecified] Episodic Past or Other Problems Problem Classification Problem Date Documented Da te Episodic/Chronic Coma; stupor; and brain damage (3 sources) Daytime somnolence; Translations: [Somnolence] Onset: 04-05-2023 Episodic Malaise and fatigue (4 sources) Asthenia; Translations: [Weakness] Onset: 01-07-2023 Episodic Other lower respiratory disease (1 source) Shortness of breath; Translations: [SOB (shortness of breath)] Onset: 12-01-2022 Episodic Other lower respiratory disease (1 source) Snoring; Translations: [Snoring] Onset: 12-01-2022 Episodic Other lower respiratory disease (1 source) Apnea, not elsewhere classified; Translations: [Witnessed apneic spells] Onset: 12-01-2022 Episodic Other screening for suspected conditions (not mental disorders or infectious disease) (4 sources) Patient encounter status; Translations: [Encounter for screening mammogram for malignant neoplasm of breast] Onset: 09-30-2022 Episodic Other upper respiratory disease (1 source) Other specified disorders of nose and nasal sinuses; Translations: [Rhinorrhea] Onset: 12-01-2022 Episodic Other upper respiratory disease (1 source) Nasal congestion; Translations: [Nasal congestion] Onset: 12-01-2022 Episodic Ovarian cyst (4 sources) Cyst of left ovary; Translations: [Unspecified ovarian cyst, left side] Onset: 09-29-2022 Episodic Unclassified (1 source) FLANK PAIN/KIDNEY STONE Onset: 03-16-2017 Results Test Name Value Interpretation Reference Range Facil ity Vital Signs Date Time Vital Sign Value Performing Clinician Faci lity 08-22-2023 17:54-0500 Body temperature 97.7 [degF] Guillermina Peña APRN.CNP Work Phone: [facility] 08-22-2023 17:54-0500 Body weight 78.02 kg Guillermina Peña APRN.CNP Work Phone: [facility] 08-22-2023 17:54-0500 Diastolic blood pressure 72 mm[Hg] Guillermina Peña APRN.CNP Work Phone: [facility] 08-22-2023 17:54-0500 Heart rate 92 /min Guillermina Peña APRN.HOT DIP GALVANIZER Work Phone: [facility] 08-22-2023 17:54-0500 Respiratory rate 16 /min Guillermina Peña APRN.HOT DIP GALVANIZER Work Phone: [facility] 08-22-2023 17:54-0500 SaO2% (BldA) [Mass fraction] 98 % Guillermina Peña APRN.HOT DIP GALVANIZER Work Phone: [facility] 08-22-2023 17:54-0500 Systolic blood pressure 118 mm[Hg] Guillermina Peña APRN.HOT DIP GALVANIZER Work Phone: [facility] 01-27-2023 11:34-0400 Body temperature 98.4 [degF] Dakota Paz MD Work Phone: [facility] 01-27-2023 11:34-0400 Body weight 78.2 kg Dakota Paz MD Work Phone: [facility] 01-27-2023 11:34-0400 Diastolic blood pressure 74 mm[Hg] Dakota Paz MD Work Phone: [facility] 01-27-2023 11:34-0400 Heart rate 93 /min Dakota Paz MD Work Phone: [facility] 01-27-2023 11:34-0400 Respiratory rate 18 /min Dakota Paz MD Work Phone: [facility] 01-27-2023 11:34-0400 SaO2% (BldA) [Mass fraction] 97 % Dakota Paz MD Work Phone: [facility] 01-27-2023 11:34-0400 Systolic blood pressure 110 mm[Hg] Dakota Paz MD Work Phone: [facility] 12-01-2022 18:40-0400 Body temperature 98.01 [degF] Tootie Mujica APRN.HOT DIP GALVANIZER Work Phone: [facility] 03-15-2023 18:40-0400 Body weight 75.3 kg Tootie Podlogar METALLURGICAL SPECIALIST.HOT DIP GALVANIZER Work Phone: [facility] 12-01-2022 18:40-0400 Diastolic blood pressure 78 mm[Hg] Tootie Podlogar METALLURGICAL SPECIALIST.HOT DIP GALVANIZER Work Phone: [facility] 12-01-2022 18:40-0400 Heart rate 87 /min Tootie Podlogar METALLURGICAL SPECIALIST.HOT DIP GALVANIZER Work Phone: [facility] 12-01-2022 18:40-0400 Respiratory rate 18 /min Tootie Podlogar METALLURGICAL SPECIALIST.HOT DIP GALVANIZER Work Phone: [facility] 12-01-2022 18:40-0400 SaO2% (BldA) [Mass fraction] 100 % Tootie Podlogar METALLURGICAL SPECIALIST.HOT DIP GALVANIZER Work Phone: [facility] 12-01-2022 18:40-0400 Systolic blood pressure 112 mm[Hg] Tootie Podlogar METALLURGICAL SPECIALIST.HOT DIP GALVANIZER Work Phone: [facility] 11-15-2022 14:56-0500 Body temperature 97.81 [degF] NA Medeiros PA-C Work Phone: [facility] 11-15-2022 14:56-0500 Body weight 73.94 kg NA Medeiros PA-C Work Phone: [facility] 11-15-2022 14:56-0500 Diastolic blood pressure 62 mm[Hg] NA Medeiros PA-C Work Phone: [facility] 11-15-2022 14:56-0500 Heart rate 86 /min NA Medeiros PA-C Work Phone: [facility] 11-15-2022 14:56-0500 SaO2% (BldA) [Mass fraction] 97 % NA Medeiros PA-C Work Phone: [facility] 11-15-2022 14:56-0500 Systolic blood pressure 110 mm[Hg] NA Medeiros PA-C Work Phone: [facility] 11-14-2022 14:30-0500 Body temperature 98.2 [degF] Abe Zheng METALLURGICAL SPECIALIST.HOT DIP GALVANIZER Work Phone: [facility] 11-14-2022 14:30-0500 Body weight 74.3 kg Abe Calzada METALLURGICAL SPECIALIST.HOT DIP GALVANIZER Work Phone: [facility] 11-14-2022 14:30-0500 Diastolic blood pressure 68 mm[Hg] Abe Zheng METALLURGICAL SPECIALIST.HOT DIP GALVANIZER Work Phone: [facility] 11-14-2022 14:30-0500 Heart rate 100 /min Abe Zheng METALLURGICAL SPECIALIST.HOT DIP GALVANIZER Work Phone: [facility] 11-14-2022 14:30-0500 Respiratory rate 18 /min Abe Zheng METALLURGICAL SPECIALIST.HOT DIP GALVANIZER Work Phone: [facility] 11-14-2022 14:30-0500 SaO2% (BldA) [Mass fraction] 97 % Abe Zheng METALLURGICAL SPECIALIST.HOT DIP GALVANIZER Work Phone: [facility] 11-14-2022 14:30-0500 Systolic blood pressure 116 mm[Hg] Abe Zheng METALLURGICAL SPECIALIST.HOT DIP GALVANIZER Work Phone: [facility] 10-14-2022 11:42-0500 Body temperature 98.71 [degF] Martine Athy PA-C Work Phone: [facility] 10-14-2022 11:42-0500 Body weight 76.02 kg Martine Athy PA-C Work Phone: [facility] 10-14-2022 11:42-0500 Diastolic blood pressure 70 mm[Hg] Martine Athy PA-C Work Phone: [facility] 10-14-2022 11:42-0500 Heart rate 95 /min Martine Athy PA-C Work Phone: [facility] 10-14-2022 11:42-0500 Respiratory rate 18 /min Martine Athy PA-C Work Phone: [facility] 10-14-2022 11:42-0500 SaO2% (BldA) [Mass fraction] 97 % Martine Athy PA-C Work Phone: [facility] 10-14-2022 11:42-0500 Systolic blood pressure 120 mm[Hg] Martine Munroe PA-C Work Phone: [facility] 10-13-2022 13:53-0500 Body weight 76.2 kg Luis Tavarez MD Work Phone: [facility] 10-13-2022 13:53-0500 Diastolic blood pressure 62 mm[Hg] Luis Tavarez MD Work Phone: [facility] 10-13-2022 13:53-0500 Systolic blood pressure 110 mm[Hg] Luis Tavarez MD Work Phone: [facility] 08-20-2022 10:24-0500 Body temperature 97.39 [degF] Abe Calzada METALLURGICAL SPECIALIST.HOT DIP GALVANIZER Work Phone: [facility] 08-20-2022 10:24-0500 Body weight 75.39 kg Abe Calzada METALLURGICAL SPECIALIST.HOT DIP GALVANIZER Work Phone: [facility] 08-20-2022 10:24-0500 Diastolic blood pressure 66 mm[Hg] Abe Zheng METALLURGICAL SPECIALIST.HOT DIP GALVANIZER Work Phone: [facility] 08-20-2022 10:24-0500 Heart rate 75 /min Abe Zheng METALLURGICAL SPECIALIST.HOT DIP GALVANIZER Work Phone: [facility] 08-20-2022 10:24-0500 Respiratory rate 21 /min Abe Zheng METALLURGICAL SPECIALIST.HOT DIP GALVANIZER Work Phone: [facility] 08-20-2022 10:24-0500 SaO2% (BldA) [Mass fraction] 98 % Abe Zheng METALLURGICAL SPECIALIST.HOT DIP GALVANIZER Work Phone: [facility] 08-20-2022 10:24-0500 Systolic blood pressure 110 mm[Hg] Abe Zheng METALLURGICAL SPECIALIST.HOT DIP GALVANIZER Work Phone: [facility] 08-11-2022 14:14-0500 Body height 149.9 cm Vivian Gray MD Work Phone: [facility] 08-11-2022 14:14-0500 Body temperature 97.11 [degF] Vivian Gray MD Work Phone: [facility] 08-11-2022 14:14-0500 Body weight 76.3 kg Vivian Gray MD Work Phone: [facility] 08-11-2022 14:14-0500 Diastolic blood pressure 72 mm[Hg] Vivian Gray MD Work Phone: [facility] 08-11-2022 14:14-0500 Heart rate 82 /min Vivian Gray MD Work Phone: [facility] 08-11-2022 14:14-0500 SaO2% (BldA) [Mass fraction] 97 % Vivian Gray MD Work Phone: [facility] 08-11-2022 14:14-0500 Systolic blood pressure 118 mm[Hg] Vivian Gray MD Work Phone: [facility] 08-02-2022 15:26-0500 Body height 151.1 cm Alyssa [place] METALLURGICAL SPECIALIST.HOT DIP GALVANIZER Work Phone: [facility] 08-02-2022 15:26-0500 Body weight 75.48 kg Alyssa Germania METALLURGICAL SPECIALIST.HOT DIP GALVANIZER Work Phone: [facility] 08-02-2022 15:26-0500 Diastolic blood pressure 76 mm[Hg] Alyssa [place] METALLURGICAL SPECIALIST.HOT DIP GALVANIZER Work Phone: [facility] 08-02-2022 15:26-0500 Systolic blood pressure 110 mm[Hg] Alyssa [place] METALLURGICAL SPECIALIST.HOT DIP GALVANIZER Work Phone: [facility] 07-31-2022 13:28-0500 Body temperature 97.9 [degF] Dakota Paz MD Work Phone: [facility] 07-31-2022 13:28-0500 Body weight 75.3 kg Dakota Paz MD Work Phone: [facility] 07-31-2022 13:28-0500 Diastolic blood pressure 72 mm[Hg] Dakota Paz MD Work Phone: [facility] 07-31-2022 13:28-0500 Heart rate 90 /min Dakota Paz MD Work Phone: [facility] 07-31-2022 13:28-0500 Respiratory rate 18 /min Dakota Paz MD Work Phone: [facility] 07-31-2022 13:28-0500 SaO2% (BldA) [Mass fraction] 97 % Dakota Paz MD Work Phone: [facility] 07-31-2022 13:28-0500 Systolic blood pressure 124 mm[Hg] Dakota Paz MD Work Phone: [facility] 07-28-2022 11:19-0500 Body weight 75.03 kg Tootie Podlogar METALLURGICAL SPECIALIST.HOT DIP GALVANIZER Work Phone: [facility] 07-28-2022 11:19-0500 Diastolic blood pressure 74 mm[Hg] Tootie Podlogar METALLURGICAL SPECIALIST.HOT DIP GALVANIZER Work Phone: [facility] 07-28-2022 11:19-0500 Heart rate 72 /min Tootie Podlogar METALLURGICAL SPECIALIST.HOT DIP GALVANIZER Work Phone: [facility] 07-28-2022 11:19-0500 Respiratory rate 18 /min Tootei Podlogar METALLURGICAL SPECIALIST.HOT DIP GALVANIZER Work Phone: [facility] 07-28-2022 11:19-0500 SaO2% (BldA) [Mass fraction] 98 % Tootie Podlogar METALLURGICAL SPECIALIST.HOT DIP GALVANIZER Work Phone: [facility] 07-28-2022 11:19-0500 Systolic blood pressure 118 mm[Hg] Tootie Podlogar METALLURGICAL SPECIALIST.HOT DIP GALVANIZER Work Phone: [facility] 06-23-2022 14:13-0400 Body temperature 98.49 [degF] Tootie Podlogar METALLURGICAL SPECIALIST.HOT DIP GALVANIZER Work Phone: [facility] 06-23-2022 14:13-0400 Body weight 72.85 kg Tootie Podlogar METALLURGICAL SPECIALIST.HOT DIP GALVANIZER Work Phone: [facility] 06-23-2022 14:13-0400 Diastolic blood pressure 62 mm[Hg] Tootie Podlogar METALLURGICAL SPECIALIST.HOT DIP GALVANIZER Work Phone: [facility] 06-23-2022 14:13-0400 Heart rate 94 /min Tootie Podlogar METALLURGICAL SPECIALIST.HOT DIP GALVANIZER Work Phone: [facility] 06-23-2022 14:13-0400 Respiratory rate 20 /min Tootie Podlogar METALLURGICAL SPECIALIST.HOT DIP GALVANIZER Work Phone: [facility] 06-23-2022 14:13-0400 SaO2% (BldA) [Mass fraction] 95 % Tootie Podlogar METALLURGICAL SPECIALIST.HOT DIP GALVANIZER Work Phone: [facility] 06-23-2022 14:13-0400 Systolic blood pressure 106 mm[Hg] Tootie Podlogar METALLURGICAL SPECIALIST.HOT DIP GALVANIZER Work Phone: [facility] 06-17-2022 15:12-0400 Body height 144.8 cm Jose Hicks MD Work Phone: [facility] 06-17-2022 15:12-0400 Body weight 73.48 kg Jose Hicks MD Work Phone: [facility] 06-07-2022 15:14-0400 Body temperature 98.29 [degF] Abe Calzada METALLURGICAL SPECIALIST.HOT DIP GALVANIZER Work Phone: [facility] 06-07-2022 15:14-0400 Body weight 75.75 kg Abe Calzada METALLURGICAL SPECIALIST.HOT DIP GALVANIZER Work Phone: [facility] 06-07-2022 15:14-0400 Diastolic blood pressure 70 mm[Hg] Abe Calzada METALLURGICAL SPECIALIST.HOT DIP GALVANIZER Work Phone: [facility] 06-07-2022 15:14-0400 Heart rate 94 /min Abe Calzada METALLURGICAL SPECIALIST.HOT DIP GALVANIZER Work Phone: [facility] 06-07-2022 15:14-0400 Respiratory rate 18 /min Abe Calzada METALLURGICAL SPECIALIST.HOT DIP GALVANIZER Work Phone: [facility] 06-07-2022 15:14-0400 SaO2% (BldA) [Mass fraction] 97 % Abe Calzada METALLURGICAL SPECIALIST.HOT DIP GALVANIZER Work Phone: [facility] 06-07-2022 15:14-0400 Systolic blood pressure 110 mm[Hg] Abe Calzada METALLURGICAL SPECIALIST.HOT DIP GALVANIZER Work Phone: [facility] 05-05-2022 14:52-0400 Body temperature 98.29 [degF] Lia Eric METALLURGICAL SPECIALIST.HOT DIP GALVANIZER Work Phone: [facility] 05-05-2022 14:52-0400 Body weight 73.48 kg Lia Eric METALLURGICAL SPECIALIST.HOT DIP GALVANIZER Work Phone: [facility] 05-05-2022 14:52-0400 Diastolic blood pressure 60 mm[Hg] Lia Eric METALLURGICAL SPECIALIST.HOT DIP GALVANIZER Work Phone: [facility] 05-05-2022 14:52-0400 Heart rate 90 /min Lia Eric METALLURGICAL SPECIALIST.HOT DIP GALVANIZER Work Phone: [facility] 05-05-2022 14:52-0400 Respiratory rate 16 /min Lia Eric METALLURGICAL SPECIALIST.HOT DIP GALVANIZER Work Phone: [facility] 05-05-2022 14:52-0400 SaO2% (BldA) [Mass fraction] 98 % Lia Eric METALLURGICAL SPECIALIST.HOT DIP GALVANIZER Work Phone: [facility] 05-05-2022 14:52-0400 Systolic blood pressure 104 mm[Hg] Lia Eric METALLURGICAL SPECIALIST.HOT DIP GALVANIZER Work Phone: [facility] 04-19-2022 16:36-0400 Body temperature 98.1 [degF] Lia Eric METALLURGICAL SPECIALIST.HOT DIP GALVANIZER Work Phone: [facility] 04-19-2022 16:36-0400 Body weight 74.03 kg Lia Eric METALLURGICAL SPECIALIST.HOT DIP GALVANIZER Work Phone: [facility] 04-19-2022 16:36-0400 Diastolic blood pressure 80 mm[Hg] Lia Eric METALLURGICAL SPECIALIST.HOT DIP GALVANIZER Work Phone: [facility] 04-19-2022 16:36-0400 Heart rate 97 /min Lia [place] METALLURGICAL SPECIALIST.HOT DIP GALVANIZER Work Phone: [facility] 04-19-2022 16:36-0400 Respiratory rate 20 /min Lia [place] METALLURGICAL SPECIALIST.HOT DIP GALVANIZER Work Phone: [facility] 04-19-2022 16:36-0400 SaO2% (BldA) [Mass fraction] 98 % Lia [place] METALLURGICAL SPECIALIST.HOT DIP GALVANIZER Work Phone: [facility] 04-19-2022 16:36-0400 Systolic blood pressure 108 mm[Hg] Lia Eric METALLURGICAL SPECIALIST.HOT DIP GALVANIZER Work Phone: [facility] 01-26-2022 12:42-0400 Body temperature 98.2 [degF] Ian Jose C METALLURGICAL SPECIALIST.HOT DIP GALVANIZER Work Phone: [facility] 01-26-2022 12:42-0400 Body weight 73.48 kg Ian Ayeshadora METALLURGICAL SPECIALIST.HOT DIP GALVANIZER Work Phone: [facility] 01-26-2022 12:42-0400 Diastolic blood pressure 64 mm[Hg] Ian Pendlebury METALLURGICAL SPECIALIST.HOT DIP GALVANIZER Work Phone: [facility] 01-26-2022 12:42-0400 Heart rate 90 /min Ian Pendastonbury METALLURGICAL SPECIALIST.HOT DIP GALVANIZER Work Phone: [facility] 01-26-2022 12:42-0400 Respiratory rate 16 /min Ian Pendastonbury METALLURGICAL SPECIALIST.HOT DIP GALVANIZER Work Phone: [facility] 01-26-2022 12:42-0400 SaO2% (BldA) [Mass fraction] 97 % Ian Pendledora METALLURGICAL SPECIALIST.HOT DIP GALVANIZER Work Phone: [facility] 01-26-2022 12:42-0400 Systolic blood pressure 106 mm[Hg] Ian Pendlebury METALLURGICAL SPECIALIST.HOT DIP GALVANIZER Work Phone: [facility] 01-14-2022 17:38-0400 Body temperature 98.2 [degF] Latha Coppola METALLURGICAL SPECIALIST.HOT DIP GALVANIZER Work Phone: [facility] 01-14-2022 17:38-0400 Body weight 73.66 kg Latha Coppola METALLURGICAL SPECIALIST.HOT DIP GALVANIZER Work Phone: [facility] 01-14-2022 17:38-0400 Diastolic blood pressure 70 mm[Hg] Latha Coppola METALLURGICAL SPECIALIST.HOT DIP GALVANIZER Work Phone: [facility] 01-14-2022 17:38-0400 Heart rate 100 /min Latha Coppola METALLURGICAL SPECIALIST.HOT DIP GALVANIZER Work Phone: [facility] 01-14-2022 17:38-0400 Respiratory rate 28 /min Latha Coppola METALLURGICAL SPECIALIST.HOT DIP GALVANIZER Work Phone: [facility] 01-14-2022 17:38-0400 SaO2% (BldA) [Mass fraction] 96 % Latha Coppola METALLURGICAL SPECIALIST.HOT DIP GALVANIZER Work Phone: [facility] 01-14-2022 17:38-0400 Systolic blood pressure 100 mm[Hg] Latha Coppola METALLURGICAL SPECIALIST.HOT DIP GALVANIZER Work Phone: [facility] 01-08-2022 13:36-0400 Body temperature 98.1 [degF] Sabrina Praisler-Wood METALLURGICAL SPECIALIST.HOT DIP GALVANIZER Work Phone: [facility] 01-08-2022 13:36-0400 Body weight 75.12 kg Sabrina Praisler-Wood METALLURGICAL SPECIALIST.HOT DIP GALVANIZER Work Phone: [facility] 01-08-2022 13:36-0400 Diastolic blood pressure 74 mm[Hg] Sabrina Praisler-Wood METALLURGICAL SPECIALIST.HOT DIP GALVANIZER Work Phone: [facility] 01-08-2022 13:36-0400 Heart rate 82 /min Sabrina Praisler-Wood METALLURGICAL SPECIALIST.HOT DIP GALVANIZER Work Phone: [facility] 01-08-2022 13:36-0400 Respiratory rate 14 /min Sabrina Praisler-Wood METALLURGICAL SPECIALIST.HOT DIP GALVANIZER Work Phone: [facility] 01-08-2022 13:36-0400 SaO2% (BldA) [Mass fraction] 98 % Sabrina Lester APRN.HOT DIP GALVANIZER Work Phone: [facility] 01-08-2022 13:36-0400 Systolic blood pressure 110 mm[Hg] Sabrina Lester APRN.HOT DIP GALVANIZER Work Phone: [facility] 12-07-2021 14:20-0400 Body weight 74.66 kg Shaniqua Beckford MD Work Phone: [facility] 12-07-2021 14:20-0400 Diastolic blood pressure 66 mm[Hg] Shaniqua Beckford MD Work Phone: [facility] 12-07-2021 14:20-0400 Heart rate 94 /min Shaniqua Beckford MD Work Phone: [facility] 12-07-2021 14:20-0400 Respiratory rate 18 /min Shaniqua Beckford MD Work Phone: [facility] 12-07-2021 14:20-0400 SaO2% (BldA) [Mass fraction] 97 % Shaniqua Beckford MD Work Phone: [facility] 12-07-2021 14:20-0400 Systolic blood pressure 128 mm[Hg] Shaniqua Beckford MD Work Phone: [facility] Encounters Encounter Date Encounter Type Care Provider Facility Start: 08-22-2023 End: 08-22-2023 ambulatory SHANIQUA BECKFORD Facility:[facility] Start: 08-22-2023 End: 08-22-2023 Patient encounter procedure Guillermina Peña METALLURGICAL SPECIALIST.HOT DIP GALVANIZER Work Phone: [facility] Procedures Date Procedure Procedure Detail Performing Clinician Start: 09-29-2022 Us transvaginal Alyssa M etcalf METALLURGICAL SPECIALIST.HOT DIP GALVANIZER Work Phone: Start: 08-20-2022 STREP A MOLECULAR (POC) [facility] Provider Start: 08-11-2022 Us transvaginal Alyssa M etcalf METALLURGICAL SPECIALIST.HOT DIP GALVANIZER Work Phone: Start: 08-11-2022 Mri any jt upper ext remity w/o contrast thangl Jose Hicks MD Work Phone: Start: 08-02-2022 Urnls dip stick/tabl et rgnt auto w/o microscopy Alyssa Cano METALLURGICAL SPECIALIST.HOT DIP GALVANIZER Work Phone: Start: 07-28-2022 INFLUENZA VACCINE QUADRIVALENT 6 MO - 64 YRS IM Tootie Podlogar METALLURGICAL SPECIALIST.HOT DIP GALVANIZER Work Phone: Start: 07-28-2022 PFIZER-BIONTECH COVI D-19 BIVALENT BOOSTER VACCINE, AGE 12+ YR Tootie Podlogar METALLURGICAL SPECIALIST.HOT DIP GALVANIZER Work Phone: Start: 06-07-2022 Radex wrist complete minimum 3 views Abe Calzada METALLURGICAL SPECIALIST.HOT DIP GALVANIZER Work Phone: Start: 01-26-2022 Urnls dip stick/tabl et rgnt auto w/o microscopy Latha Coppola METALLURGICAL SPECIALIST.HOT DIP GALVANIZER Work Phone: Start: 01-08-2022 STREP A MOLECULAR (POC) Sabrina Lester METALLURGICAL SPECIALIST.HOT DIP GALVANIZER Work Phone: Start: 12-09-2021 Us abdominal real ti me w/image limited Shaniqua Beckford MD Work Phone: Start: 10-21-2021 Adult depression scr eening assessment Shaniqua Beckford MD Work Phone: Plan of Treatment Date Care Activity Detail Author Start: 10-13-2027 PAP TESTING PAP TESTING [facility] Start: 08-22-2023 End: 09-05-2023 COVID & INFLUENZA A/B & RSV NAAT, ROUTINE [facility] Work Phone: Immunizations Immunization Date Immunization Notes Care Provider Fa margi 07-28-2022 COVID-19 booster vaccine, age 12+ yr, bivalent (PFIZER-BIONTECH) Tootie Podlogандрей METALLURGICAL SPECIALIST.HOT DIP GALVANIZER Work Phone: [facility] 07-28-2022 influenza, injectabl e, quadrivalent, contains preservative Tootie Podlogar METALLURGICAL SPECIALIST.HOT DIP GALVANIZER Work Phone: [facility] 07-28-2022 influenza virus vaccine, unspecified formulation Us 2 Work Phone: [facility] 07-30-2021 COVID-19 vaccine, ag e 12+ yr (PFIZER-BIONTECH - PURPLE TOP) Shaniqua Beckford MD Work Phone: [facility] 07-09-2021 COVID-19 vaccine, ag e 12+ yr (PFIZER-BIONTECH - PURPLE TOP) Shaniqua Beckford MD Work Phone: [facility] Payers Date Payer Category Payer Medicaid [employer] [place] [id number] 2020-Present [phone] [facility] [address] [place] [address] Medicaid [id number] 2020 Medicaid [id number] 2020 Medicaid [id number] 2014 Private Health Insurance [id number] 1986 Unknown [id number] Self-pay Social History Date Type Detail Facility Start: 10-21-2021 End: 05-05-2022 Tobacco smoking status NHIS Ex-smoker [facility] End: 10-07-2021 History of tobacco use Current smoker [facility] Start: 10-21-2021 End: 10-02-2022 Cigarettes smoked current (pack per day) - Reported 0.5 [facility] Start: 10-21-2021 End: 05-05-2022 Tobacco use and exposure Smokeless tobacco non-user [facility] Start: 12-07-2021 End: 08-22-2023 Alcohol intake Current non-drinker of alcohol (finding) [facility] Start: 09-02-2021 End: 11-15-2022 History SDOH Alcohol Frequency 1 [facility] Start: 09-02-2021 End: 11-15-2022 History SDOH Alcohol Std Drinks 98 [facility] Start: 09-02-2021 End: 11-15-2022 History SDOH Social Connections Phone 2 [facility] Start: 09-02-2021 End: 11-15-2022 History SDOH Social Connections Living 7 [facility] Start: 09-02-2021 End: 11-15-2022 History SDOH Physical Activity DPW 5 [facility] Start: 09-02-2021 History SDOH Physica l Activity MPS 3 [facility] Start: 09-02-2021 End: 11-15-2022 History SDOH Stress 4 [facility] Start: 1985 Sex Assigned At Female C [facility] Start: 11-27-2021 End: 08-20-2022 Exposure to SARS-CoV-2 (event) Not sure [facility] End: 10-07-2021 History of tobacco use Cigarette Smoker [facility] Start: 11-15-2022 History SDOH Alcohol Std Drinks 0 [facility] Start: 10-02-2022 End: 11-15-2022 Social connection and isolation panel [facility] Do you belong to any clubs or organizations such as confucianism groups, unions, fraternal or athletic groups, or school groups? No [facility] Are you now , , , , never or living with a partner? Never [facility] How often to you hav e a drink containing alcohol? Never [facility] How many standard dr inks containing alcohol do you have on a typical day? Patient does not drink [facility] How hard is it for y ou to pay for the very basics like food, housing, medical care, and heating Not very hard [facility] Do you feel stress - tense, restless, nervous, or anxious, or unable to sleep at night because your mind is troubled all the time - these days [OSQ] Only a little [facility] (I/We) worried wheth er (my/our) food would run out before (I/we) got money to buy more. Never true [facility] Start: 06-26-2021 Gender identity Identifies as female gender (finding) [facility] Start: 06-26-2021 Sexual orientation Heterosexual (miri carlton) [facility] How hard is it for y ou to pay for the very basics like food, housing, medical care, and heating Somewhat hard [facility] Do you feel stress - tense, restless, nervous, or anxious, or unable to sleep at night because your mind is troubled all the time - these days [OSQ] Rather much [facility] (I/We) worried wheth er (my/our) food would run out before (I/we) got money to buy more. Sometimes true [facility] Clinical Notes 12-07-2021 to 08-22-2023 Guillermina Peña APRN.HOT DIP GALVANIZER - 08/22/2023 6:05 PM Lizz George LPN - 08/08/2023 11:53 AM ESTTelephone Encounter - Bailey Contreras LPN - 05/24/2023 9:59 AM EDTPatient Instructions Note Date & Type Note Facility 08-22-2023 Note HNO ID: [id number] Author: Guillermina Peña APRN.HOT DIP GALVANIZER Service: ? Author Type: Nurse Practitioner Type: Progress Notes Filed: 08/22/2023 6:22 PM Note Text: CC: Patient presents with: Nausea: diarrhea x 1 day HPI: Arlet Navarro is a 38 year old female who presents to the office with complaint of nausea for the past day. Symptoms are worsening Associated symptoms includes vomiting and diarrhea. Denies fever, ear pain, ear pressure , cough, and rash. Treatments tried include nothing so far. with no relief of symptoms. Sick contacts: unknown. History of asthma, frequent episodes of bronchitis, chronic bronchitis, bronchiectasis or COPD: No Smoker: No Seasonal/environmental allergies: No The ROS is otherwise negative. The patient's pmh, medications, allergies, and past visits are reviewed. PHYSICAL EXAM: BP 118/72 Pulse 92 Temp 36.5 ?C (97.7 ?F) Resp 16 Wt 78 kg (172 lb) SpO2 98% BMI 34.74 kg/m? General appearance: alert, cooperative, pleasant, in no acute distress Head: Normocephalic Eyes: EOM's intact, conjunctiva pink and moist, no icterus, sclera white, non-injected Ears: Right ear: External ear/canal- Normal, TM - clear with good landmarks. Left ear: External ear/canal- Normal, TM - clear with good landmarks Oropharynx:moist without lesions, No erythema, exudates or tonsillar hypertrophy. Heart: Negative. RRR without obvious murmur, gallop, or rubs. No ectopy. Lungs: clear to auscultation, without rales or wheeze, good air exchange Denies abdominal pain PAST MEDICAL HISTORY Diagnosis Date Arthritis Kidney stones Nocturnal hypoxia ZOFIA (obstructive sleep apnea) PAST SURGICAL HISTORY Procedure Laterality Date HYSTERECTOMY HX 2012 has left ovary LAP UMBILICAL HERNIA REPAIR ALLERGIES Raymond [Hydrocodone-Acetaminophen] MEDICATIONS albuterol HFA (PROAIR HFA) 90 mcg/actuation inhaler Inhale 2 Puffs as instructed every 6 hours as needed. loratadine (CLARITIN) 10 mg tablet Take 1 tablet by mouth once daily. etodolac (LODINE) 400 mg tablet Take 1 tablet by mouth twice daily. fluticasone (FLONASE) 50 mcg/actuation nasal spray Use 2 Sprays in each nostril once daily. Rinse mouth after use. melatonin 3 mg tablet Take 3 mg by mouth once daily. ondansetron orally disintegrating (ZOFRAN ODT) 4 mg disintegrating tablet Take 1 tablet by mouth every 12 hours as needed for nausea/vomiting for up to 7 days. omeprazole (PRILOSEC) 40 mg capsule Take 1 capsule by mouth once daily. (Patient not taking: Reported on 08/22/2023) FAMILY HISTORY Problem Relation Age of Onset Breast Cancer Mother Hypertension Mother Heart Mother other (ms) Mother Fibromyalgia Mother No Known Problems Father Diabetes Sister No Known Problems Brother other (MS) Maternal Grandmother Breast Cancer Maternal Grandmother Heart Maternal Grandmother other (hTN) Maternal Grandmother No Known Problems Maternal Grandfather No Known Problems Paternal Grandmother No Known Problems Paternal Grandfather Social History Tobacco Use Smoking status: Former Packs/day: 0.50 Years: 17.00 Additional pack years: 0.00 Total pack years: 8.50 Types: Cigarettes Quit date: 10/07/2021 Years since quittin.8 Smokeless tobacco: Never Vaping Use Vaping Use: Never used Substance Use Topics Alcohol use: No Drug use: No ASSESSMENT/PLAN: 1. URI, acute - ICD9: 465.9, ICD10: J06.9 (primary diagnosis) - COVID AND INFLUENZA A/B AND RSV NAAT, ROUTINE 2. Nausea and vomiting, unspecified vomiting type - ICD9: 787.01, ICD10: R11.2 - ONDANSETRON 4 MG DISINTEGRATING TABLET Prescription instructions reviewed with patient as applicable. Potential red flag symptoms discussed with the patient. Reviewed appropriate action plan to take if red flag symptoms occur. Patient agreeable to treatment plan. Guillermina Peña APRN.[facility] 08-22-2023 History of Presen t illness Narrative CC: Patient presents with: Nausea: diarrhea x 1 day HPI: Arlet Navarro is a 38 year old female who presents to the office with complaint of nausea for the past day. Symptoms are worsening Associated symptoms includes vomiting and diarrhea. Denies fever, ear pain, ear pressure , cough, and rash. Treatments tried include nothing so far. with no relief of symptoms. Sick contacts: unknown. History of asthma, frequent episodes of bronchitis, chronic bronchitis, bronchiectasis or COPD: No Smoker: No Seasonal/environmental allergies: No The ROS is otherwise negative. The patient's pmh, medications, allergies, and past visits are reviewed. PHYSICAL EXAM: BP 118/72 Pulse 92 Temp 36.5 C (97.7 F) Resp 16 Wt 78 kg (172 lb) SpO2 98% BMI 34.74 kg/m General appearance: alert, cooperative, pleasant, in no acute distress Head: Normocephalic Eyes: EOM's intact, conjunctiva pink and moist, no icterus, sclera white, non-injected Ears: Right ear: External ear/canal- Normal, TM - clear with good landmarks. Left ear: External ear/canal- Normal, TM - clear with good landmarks Oropharynx:moist without lesions, No erythema, exudates or tonsillar hypertrophy. Heart: Negative. RRR without obvious murmur, gallop, or rubs. No ectopy. Lungs: clear to auscultation, without rales or wheeze, good air exchange Denies abdominal pain PAST MEDICAL HISTORY Diagnosis Date Arthritis Kidney stones Nocturnal hypoxia ZOFIA (obstructive sleep apnea) PAST SURGICAL HISTORY Procedure Laterality Date HYSTERECTOMY HX 2011 has left ovary LAP UMBILICAL HERNIA REPAIR ALLERGIES Raymond [Hydrocodone-Acetaminophen] MEDICATIONS albuterol HFA (PROAIR HFA) 90 mcg/actuation inhaler Inhale 2 Puffs as instructed every 6 hours as needed. loratadine (CLARITIN) 10 mg tablet Take 1 tablet by mouth once daily. etodolac (LODINE) 400 mg tablet Take 1 tablet by mouth twice daily. fluticasone (FLONASE) 50 mcg/actuation nasal spray Use 2 Sprays in each nostril once daily. Rinse mouth after use. melatonin 3 mg tablet Take 3 mg by mouth once daily. ondansetron orally disintegrating (ZOFRAN ODT) 4 mg disintegrating tablet Take 1 tablet by mouth every 12 hours as needed for nausea/vomiting for up to 7 days. omeprazole (PRILOSEC) 40 mg capsule Take 1 capsule by mouth once daily. (Patient not taking: Reported on 08/22/2023) FAMILY HISTORY Problem Relation Age of Onset Breast Cancer Mother Hypertension Mother Heart Mother other (ms) Mother Fibromyalgia Mother No Known Problems Father Diabetes Sister No Known Problems Brother other (MS) Maternal Grandmother Breast Cancer Maternal Grandmother Heart Maternal Grandmother other (hTN) Maternal Grandmother No Known Problems Maternal Grandfather No Known Problems Paternal Grandmother No Known Problems Paternal Grandfather Social History Tobacco Use Smoking status: Former Packs/day: 0.50 Years: 17.00 Additional pack years: 0.00 Total pack years: 8.50 Types: Cigarettes Quit date: 10/07/2021 Years since quittin.8 Smokeless tobacco: Never Vaping Use Vaping Use: Never used Substance Use Topics Alcohol use: No Drug use: No ASSESSMENT/PLAN: 1. URI, acute - ICD9: 465.9, ICD10: J06.9 (primary diagnosis) - COVID & INFLUENZA A/B & RSV NAAT, ROUTINE 2. Nausea and vomiting, unspecified vomiting type - ICD9: 787.01, ICD10: R11.2 - ONDANSETRON 4 MG DISINTEGRATING TABLET Prescription instructions reviewed with patient as applicable. Potential red flag symptoms discussed with the patient. Reviewed appropriate action plan to take if red flag symptoms occur. Patient agreeable to treatment plan. Guillermina Peña APRN.HOT DIP GALVANIZER documented in this encounter [facility] 08-08-2023 Note HNO ID: [id number] Author: Lizz Stewart LPN Service: ? Author Type: ? Type: Progress Notes Filed: 08/08/2023 11:53 AM Note Text: Scan on 08/06/2023 5:56 PM by Provider, ALEXA Cortes: X-ray [facility] 08-08-2023 History of Presen t illness Narrative Scan on 08/06/2023 5:56 PM by ProviderSophia PA-C: X-ray documented in this encounter [facility] 05-29-2023 Note HNO ID: [id number] Author: Sabrina Lester APRN.HOT DIP GALVANIZER Service: ? Author Type: Nurse Practitioner Type: Progress Notes Filed: 05/29/2023 2:01 PM Note Text: Subjective HPI Arlet Navarro is a 38 year old female who presents with cough, wheezing, shortness of breath, headache, sore throat, and body aches. She has had multiple exposures to COVID in the past week (coworkers +). She had a fever yesterday of 101 degrees F. She has been taking Aleve and Mucinex. Review of Systems Constitutional: Positive for fever and malaise/fatigue. Negative for chills. HENT: Positive for congestion and sore throat. Negative for ear pain. Respiratory: Positive for cough, shortness of breath and wheezing. Cardiovascular: Negative. Gastrointestinal: Negative for diarrhea and vomiting. Musculoskeletal: Positive for myalgias. Neurological: Positive for headaches. BP 98/62 Pulse 103 Temp 36.6 ?C (97.9 ?F) Resp 18 Wt 75.8 kg (167 lb) SpO2 94% BMI 33.73 kg/m? PAST MEDICAL HISTORY Diagnosis Date Arthritis Kidney stones Nocturnal hypoxia ZOFIA (obstructive sleep apnea) PAST SURGICAL HISTORY Procedure Laterality Date HYSTERECTOMY HX 2011 has left ovary LAP UMBILICAL HERNIA REPAIR ALLERGIES Raymond [Hydrocodone-Acetaminophen] MEDICATIONS omeprazole (PRILOSEC) 40 mg capsule Take 1 capsule by mouth once daily. loratadine (CLARITIN) 10 mg tablet Take 1 tablet by mouth once daily. etodolac (LODINE) 400 mg tablet Take 1 tablet by mouth twice daily. fluticasone (FLONASE) 50 mcg/actuation nasal spray Use 2 Sprays in each nostril once daily. Rinse mouth after use. melatonin 3 mg tablet Take 3 mg by mouth once daily. nirmatrelvir tablet 300 mg (150 mg x 2) and ritonavir tablet 100 mg in a dose pack (PAXLOVID) Administer TWO pink nirmatrelvir 150 mg tablets and ONE white ritonavir 100 mg tablet for a total of three tablets twice daily. benzonatate (TESSALON PERLE) 100 mg capsule Take 2 capsules by mouth three times daily as needed for up to 10 days. albuterol HFA (PROAIR HFA) 90 mcg/actuation inhaler Inhale 2 Puffs as instructed every 6 hours as needed. predniSONE (DELTASONE) 20 mg tablet Take 1 tablet by mouth once daily for 4 days. Take daily with food. FAMILY HISTORY Problem Relation Age of Onset Breast Cancer Mother Hypertension Mother Heart Mother other (ms) Mother Fibromyalgia Mother No Known Problems Father Diabetes Sister No Known Problems Brother other (MS) Maternal Grandmother Breast Cancer Maternal Grandmother Heart Maternal Grandmother other (hTN) Maternal Grandmother No Known Problems Maternal Grandfather No Known Problems Paternal Grandmother No Known Problems Paternal Grandfather Social History Tobacco Use Smoking status: Former Packs/day: 0.50 Years: 17.00 Additional pack years: 0.00 Total pack years: 8.50 Types: Cigarettes Quit date: 10/07/2021 Years since quittin.6 Smokeless tobacco: Never Vaping Use Vaping Use: Never used Substance Use Topics Alcohol use: No Drug use: No Objective Physical Exam Vitals and nursing note reviewed. Constitutional: General: She is not in acute distress. Appearance: Normal appearance. She is not ill-appearing. HENT: Right Ear: Tympanic membrane, ear canal and external ear normal. Left Ear: Tympanic membrane, ear canal and external ear normal. Nose: Congestion present. Mouth/Throat: Mouth: Mucous membranes are moist. Pharynx: Uvula midline. Posterior oropharyngeal erythema (slight) present. No oropharyngeal exudate. Cardiovascular: Rate and Rhythm: Normal rate and regular rhythm. Heart sounds: Normal heart sounds. Pulmonary: Effort: Pulmonary effort is normal. No respiratory distress. Breath sounds: Wheezing present. No rales. Musculoskeletal: Cervical back: Neck supple. Lymphadenopathy: Cervical: No cervical adenopathy. Skin: General: Skin is warm and dry. Findings: No erythema or rash. Neurological: Mental Status: She is alert. ASSESSMENT/PLAN: 1. Viral URI with cough - ICD9: 465.9, ICD10: J06.9 (primary diagnosis) - Discussed viral etiology and rationale for treatment. - Symptomatic treatment with prn analgesia - Supportive care with fluids and rest - BENZONATATE 100 MG CAPSULE - ALBUTEROL SULFATE HFA 90 MCG/ACTUATION AEROSOL INHALER - PREDNISONE 20 MG TABLET - COVID NAAT, ROUTINE 2. Suspected COVID-19 virus infection - ICD9: V01.79, ICD10: Z20.822 - NIRMATRELVIR 300 MG (150 MG X2)-RITONAVIR 100 MG TABLET,DOSE PACK- Rx printed for patient. - Follow-up with your PCP in 3-5 days if symptoms have not improved or sooner if symptoms worsen - Discussed red flags and need for immediate medical evaluation if any occur. - Discussed supportive care treatment with fluids, rest and analgesia. - Discussed expected course of illness Sabrina Lester APRN.[facility] 05-24-2023 Miscellaneous Notes Patient has been identified by name and date of : Yes Patient phones for refill(s): Requested Prescriptions Pending Prescriptions Disp Refills omeprazole (PRILOSEC) 40 mg capsule 30 capsule 2 Sig: Take 1 capsule by mouth once daily. Date of last office visit in primary care: 12/01/2022 Please advise. Thank you. Bailey Contreras LPN documented in this encounter [facility] 04-14-2023 Miscellaneous Notes Patient returned call and given provider's message below. Adeline Cook RN Attempted to reach patient, no answer. full. message sent. Georgiana Antonio MA HSAT confirms at least mild sleep apnea with hypoxia into the 70's. Hypoxia out of proportion to her mild sleep apnea. Recommending in lab pap titration. documented in this encounter [facility] 04-11-2023 Note HNO ID: [id number] Author: Luke Washington Service: ? Author Type: ? Type: Progress Notes Filed: 04/11/2023 10:02 AM Note Text: Sleep Study Check-In Documentation Date: April 11, 2023 Name: Arlet Navarro Comments: HST was returned in working order with all sleep questionnaires Luke Washington [facility] 04-11-2023 History of Presen t illness Narrative Sleep Study Check-In Documentation Date: April 11, 2023 Name: Arlet Navarro Comments: HST was returned in working order with all sleep questionnaires Luke Washington Nomad# [id number], date shipped out 04/05/23 Tracking mailout: [id number] Tracking return: [id number] March 31, 2023 Standing PSG Orders signed in the last 90 days None Future PSG Orders signed in the last 90 days Ordered Auth. provider HOME SLEEP APNEA TEST (HSAT) [[id number]] 01/20/23 Shaniqua Beckford MD Assoc. diagnoses: Daytime somnolence [R40.0] Q: Indications: A: Obstructive sleep apnea Q: STOP-BANG conditions - Select All That Apply: A: TIREDNESS, fatigue or sleepiness during the day A2: SNORING that is loud or disruptive A3: OBSERVED sleep apnea Q: Current use of supplemental oxygen during sleep period?: A: No All Prior Sleep Studies (past 365 days) Some values may be hidden. Unless noted otherwise, only the newest values recorded on each date are displayed. Sleep Studies HOME SLEEP APNEA TEST (HSAT) Future Expected: Expires: 01/20/24 POLYSOMNOGRAM (PSG) Future Expected: Expires: 12/01/23 BMI Readings from Last 2 Encounters: 01/27/23 : 34.82 kg/m 12/01/22 : 33.53 kg/m PAST MEDICAL HISTORY Diagnosis Date Arthritis Kidney stones The medical record was reviewed to determine if the proposed sleep study conforms to the AASM Practice Parameters for the Indications for Polysomnography and Related Procedures, or if the sleep study is indicated for other reasons. Indications for study: ZOFIA suspected without comorbid medical or sleep disorders Sleep study to be performed: Home Sleep Apnea Test (HSAT) Special instructions: None-follow laboratory protocol Page Borja - Sleep Medicine Staff Note: I have read the above protocol, edited as needed, and agree to the plan. Trever Delacruz III, PhD 4:59 PM, 03/31/2023 March 30, 2023 An order has been received for Home Sleep Apnea Test (HSAT) from Shaniqua Potter MD , a B. [facility] Staff. Visit prep complete. Comments :No The sleep study is scheduled for 04/22. Insurance: Payor: [employer] MEDICAID / Plan: [employer] MEDICAID OF [place] / Product Type: Medicaid / Payer/Plan Subscr Sex Relation Sub. Ins. ID Effective Group Num 1. [employer]IG[employer] MEDICA* MICHAEL NAVARRO* 1985 Female Self [id number] 10/20/22 [id number] [address] [address] Elida Denny documented in this encounter [facility] 04-05-2023 Note HNO ID: [id number] Author: Luke Washington Service: ? Author Type: ? Type: Progress Notes Filed: 04/11/2023 10:02 AM Note Text: Nomad# [id number], date shipped out 04/05/23 Tracking mailout: [id number] Tracking return: [id number] [facility] 04-04-2023 Note HNO ID: [id number] Author: Lizz Stewart LPN Service: ? Author Type: ? Type: Progress Notes Filed: 04/04/2023 4:32 PM Note Text: Scan on 04/04/2023 3:06 PM by ProviderSophia PA-C: X-ray [facility] 04-04-2023 History of Presen t illness Narrative Scan on 04/04/2023 3:06 PM by ProviderSophia PA-C: X-ray documented in this encounter [facility] 03-31-2023 Note HNO ID: [id number] Author: Trever Delacruz III, PhD Service: ? Author Type: Physician Type: Progress Notes Filed: 04/11/2023 10:02 AM Note Text: March 31, 2023 Standing PSG Orders signed in the last 90 days None Future PSG Orders signed in the last 90 days Ordered Auth. provider HOME SLEEP APNEA TEST (HSAT) [[id number]] 01/20/23 Shaniqua Beckford MD Assoc. diagnoses: Daytime somnolence [R40.0] Q: Indications: A: Obstructive sleep apnea Q: STOP-BANG conditions - Select All That Apply: A: TIREDNESS, fatigue or sleepiness during the day A2: SNORING that is loud or disruptive A3: OBSERVED sleep apnea Q: Current use of supplemental oxygen during sleep period?: A: No All Prior Sleep Studies (past 365 days) Some values may be hidden. Unless noted otherwise, only the newest values recorded on each date are displayed. Sleep Studies HOME SLEEP APNEA TEST (HSAT) Future Expected: Expires: 01/20/24 POLYSOMNOGRAM (PSG) Future Expected: Expires: 12/01/23 BMI Readings from Last 2 Encounters: 01/27/23 : 34.82 kg/m? 12/01/22 : 33.53 kg/m? PAST MEDICAL HISTORY Diagnosis Date Arthritis Kidney stones The medical record was reviewed to determine if the proposed sleep study conforms to the AASM Practice Parameters for the Indications for Polysomnography and Related Procedures, or if the sleep study is indicated for other reasons. Indications for study: ZOFIA suspected without comorbid medical or sleep disorders Sleep study to be performed: Home Sleep Apnea Test (HSAT) Special instructions: None-follow laboratory protocol Page Jonh - Sleep Medicine Staff Note: I have read the above protocol, edited as needed, and agree to the plan. Trever Delacruz III, PhD 4:59 PM, 03/31/2023 [facility] 03-30-2023 Note HNO ID: [id number] Author: Elida Denny Service: ? Author Type: ? Type: Progress Notes Filed: 04/11/2023 10:02 AM Note Text: March 30, 2023 An order has been received for Home Sleep Apnea Test (HSAT) from Shaniqua Potter MD , a B. [facility] Staff. Visit prep complete. Comments :No The sleep study is scheduled for 04/22. Insurance: Payor: [employer] MEDICAID / Plan: [employer] MEDICAID [facility] / Product Type: Medicaid / Payer/Plan Subscr Sex Relation Sub. Ins. ID Effective Group Num 1. [employer] MEDICA* MICHAEL NAVARRO* 1985 Female Self [id number] 10/20/22 [id number] [address] [address] Elida Denny [facility] 03-17-2023 Miscellaneous Notes Called patient on 03/17 at 9:43 to schedule their MSK US exam. No answer, left VM, 3rd attempt. Called patient on 03/16 at 9:37 to schedule their MSK US exam. No answer, VM is full, 2nd attempt. Called patient on 03/15 at 9:31 to schedule their MSK US exam. No answer, VM is full, 1st attempt. Visit Type: ANY MSKx2 Visit Length: 90, 100 OR 120 MINUTES Order Name/Protocol: US WRIST RT; VOLAR+CARPAL TUNNEL AND US ELBOW RT; MEDIAL-EVAL ULNAR NERVE Preferred Provider: N/A Comment: Please ask if the patient has ever had any prior surgery to their LT WRIST/ELBOW. If so, upgrade the visit type to an MSK1x2 and notate the surgical hx in the Appointment Note. Location: Depending on the surgical hx, this patient can have this exam performed at any of our three locations. Slot held: N/A documented in this encounter [facility] 02-28-2023 Miscellaneous Notes Patient phones requesting refills as follows: Requested Prescriptions Pending Prescriptions Disp Refills omeprazole (PRILOSEC) 40 mg capsule 30 capsule 2 Sig: Take 1 capsule by mouth once daily. MIAN-12/01/22 Labs-01/13/23 NOV-none Please review and advise. Leila Garcia LPN documented in this encounter [facility] 01-27-2023 Note HNO ID: [id number] Author: Jose Hicks MD Service: ? Author Type: Physician Type: Progress Notes Filed: 03/03/2023 7:34 AM Note Text: Jose Hicks MD Department of Orthopaedics Orthopaedics [address] [facility] [address] Dept: [phone] Dept January 27, 2023 CHIEF COMPLAINT: Established Patient and Pain of the Right Wrist HPI Patient here today for ongoing right wrist pain. States she had to leave work today because she dropped something and broke it and burnt her hand. 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 Still having some symptoms which are not difficult to fully sort out with dropping things and numbness in the hand. My recommendation is for further evaluation with an ultrasound of the wrist and elbow. Ms. Arlet Navarro was advised as to contrast therapies and/or to take analgesics/anti-inflammatories as needed and all contraindications were reviewed. OBJECTIVE: Ms. Arlet Navarro is a pleasant 37 year old in no apparent distress. Gen:There were no vitals taken for this visit. nl development, obese, no deformities ENT: Normocephalic, normal hearing, moist mucosa CV: Pulses:Radial= 2+ and symmetric, capillary refill < 2 secs, no peripheral edema/varicosities Skin: no rash, bruising or lesions. Good turgor. Psych: cooperative and appropriate, alert and oriented x 3, good mood and affect. Musculoskeletal: Good range of motion of the elbow. Negative Tinel's and positive Phalen's at the elbow. Mild tenderness remains at the dorsal radiocarpal joint. Again, some mild tenderness at the CMC joint of the thumb. Sensation appears to be grossly intact to light touch on examination. Negative Tinel's and very minimal provocative symptoms with median nerve compression testing at the wrist. Imaging: Deferred today Supporting Subjective Information Below: Past Surgical History: PAST SURGICAL HISTORY Procedure Laterality Date HYSTERECTOMY HX 2011 has left ovary LAP UMBILICAL HERNIA REPAIR Medications: Current Outpatient Medications Medication Sig fluticasone (FLONASE) 50 mcg/actuation nasal spray Use 2 Sprays in each nostril once daily. Rinse mouth after use. loratadine (CLARITIN) 10 mg tablet Take 1 tablet by mouth once daily. albuterol HFA (PROAIR HFA) 90 mcg/actuation inhaler Inhale 2 Puffs as instructed every 6 hours as needed. omeprazole (PRILOSEC) 40 mg capsule Take 1 capsule by mouth once daily. naproxen sodium 220 mg cap Take 220 mg by mouth once daily. melatonin 3 mg tablet Take 3 mg by mouth once daily. No current facility-administered medications for this visit. Allergies: Raymond [Hydrocodone-Acetaminophen] ROS: General (negative for fatigue, malaise, weight loss/gain) HEENT (negative for headache, earache, recent vision changes, sinus pain, sore throat) Respiratory (no recent shortness of breath, hemoptysis) CV (negative for chest tightness, palpitations) Musculoskeletal (see HPI) Psych (no depression, anxiety) Jose Hicks MD [facility] 01-27-2023 History of Presen t illness Narrative Jose Hicks MD Department of Orthopaedics Orthopaedics [address] [facility] [address] Dept: [phone] Dept January 27, 2023 CHIEF COMPLAINT: Established Patient and Pain of the Right Wrist HPI Patient here today for ongoing right wrist pain. States she had to leave work today because she dropped something and broke it and burnt her hand. 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 Still having some symptoms which are not difficult to fully sort out with dropping things and numbness in the hand. My recommendation is for further evaluation with an ultrasound of the wrist and elbow. Ms. Arlet Navarro was advised as to contrast therapies and/or to take analgesics/anti-inflammatories as needed and all contraindications were reviewed. OBJECTIVE: Ms. Arlet Navarro is a pleasant 37 year old in no apparent distress. Gen:There were no vitals taken for this visit. nl development, obese, no deformities ENT: Normocephalic, normal hearing, moist mucosa CV: Pulses:Radial= 2+ and symmetric, capillary refill < 2 secs, no peripheral edema/varicosities Skin: no rash, bruising or lesions. Good turgor. Psych: cooperative and appropriate, alert and oriented x 3, good mood and affect. Musculoskeletal: Good range of motion of the elbow. Negative Tinel's and positive Phalen's at the elbow. Mild tenderness remains at the dorsal radiocarpal joint. Again, some mild tenderness at the CMC joint of the thumb. Sensation appears to be grossly intact to light touch on examination. Negative Tinel's and very minimal provocative symptoms with median nerve compression testing at the wrist. Imaging: Deferred today Supporting Subjective Information Below: Past Surgical History: PAST SURGICAL HISTORY Procedure Laterality Date HYSTERECTOMY HX 2012 has left ovary LAP UMBILICAL HERNIA REPAIR Medications: Current Outpatient Medications Medication Sig fluticasone (FLONASE) 50 mcg/actuation nasal spray Use 2 Sprays in each nostril once daily. Rinse mouth after use. loratadine (CLARITIN) 10 mg tablet Take 1 tablet by mouth once daily. albuterol HFA (PROAIR HFA) 90 mcg/actuation inhaler Inhale 2 Puffs as instructed every 6 hours as needed. omeprazole (PRILOSEC) 40 mg capsule Take 1 capsule by mouth once daily. naproxen sodium 220 mg cap Take 220 mg by mouth once daily. melatonin 3 mg tablet Take 3 mg by mouth once daily. No current facility-administered medications for this visit. Allergies: Raymond [Hydrocodone-Acetaminophen] ROS: General (negative for fatigue, malaise, weight loss/gain) HEENT (negative for headache, earache, recent vision changes, sinus pain, sore throat) Respiratory (no recent shortness of breath, hemoptysis) CV (negative for chest tightness, palpitations) Musculoskeletal (see HPI) Psych (no depression, anxiety) Jose Hicks MD documented in this encounter [facility] 01-27-2023 Note HNO ID: [id number] Author: Dakota Paz MD Service: ? Author Type: Physician Type: Progress Notes Filed: 01/27/2023 12:22 PM Note Text: Patient presents with: right hand pain: Dropped coffee pot this am and burnt hand HPI: Wrist pain: Location: right hand below the thumb Duration: years Pruritis/Pain: pain and numbness Change: worsened pain, numbness, and weakness. 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 Drainage/blister/pustule/ulcerat ion: dropped and broke a coffee pot today causing some cuts and caballero on the hand and fingers. Reports no residual burn changes or pain. Treatment: EMG 2020, orthopedic evaluation May 2022, MRI 07/2022 but has not heard results yet. Wears a wrist brace. MEDICATIONS: fluticasone (FLONASE) 50 mcg/actuation nasal spray Use 2 Sprays in each nostril once daily. Rinse mouth after use. loratadine (CLARITIN) 10 mg tablet Take 1 tablet by mouth once daily. albuterol HFA (PROAIR HFA) 90 mcg/actuation inhaler Inhale 2 Puffs as instructed every 6 hours as needed. omeprazole (PRILOSEC) 40 mg capsule Take 1 capsule by mouth once daily. naproxen sodium 220 mg cap Take 220 mg by mouth once daily. melatonin 3 mg tablet Take 3 mg by mouth once daily. ALLERGIES: ALLERGIES Allergen Reactions Raymond [Hydrocodone-* Hives, Swelling VITALS: BP 110/74 Pulse 93 Temp 36.9 ?C (98.4 ?F) (Tympanic) Resp 18 Wt 78.2 kg (172 lb 6.4 oz) SpO2 97% BMI 34.82 kg/m? PE: Pleasant, in no acute distress. Hand: right. Adhesive bandages removed from the thumb and a finger revealing shallow abrasions. No erythema, vesicles, ecchymosis, edema, or ulceration of the hand or fingers. ASSESSMENT/PLAN: 1. Abrasion of right hand, initial encounter - ICD9: 914.0, ICD10: S60.511A (primary diagnosis) Mild abrasion. Declines dressing since the cuts are so minor. 2. Chronic wrist pain, right - ICD9: 719.43, 338.29, ICD10: M25.531, G89.29 Continue supportive care. Schedule follow up with orthopedics. I will send a phone encounter noting concerns about MRI result and difficulty performing her job. Dakota Paz MD [facility] 01-27-2023 Miscellaneous Notes Patient was seen in May 2022 and had wrist MRI in July. She presented to the [facility] today because she is still having issues with her right wrist - pain, weakness, numbness. It is interfering with her ability to work. She has not heard results from the July MRI yet. Follow up appointment scheduled with ortho to review results and get recommendations for treatment/work up. documented in this encounter [facility] 01-27-2023 History of Presen t illness Narrative Patient presents with: right hand pain: Dropped coffee pot this am and burnt hand HPI: Wrist pain: Location: right hand below the thumb Duration: years Pruritis/Pain: pain and numbness Change: worsened pain, numbness, and weakness. 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 Drainage/blister/pustule/ulcerat ion: dropped and broke a coffee pot today causing some cuts and caballero on the hand and fingers. Reports no residual burn changes or pain. Treatment: EMG 2020, orthopedic evaluation May 2022, MRI 07/2022 but has not heard results yet. Wears a wrist brace. MEDICATIONS: fluticasone (FLONASE) 50 mcg/actuation nasal spray Use 2 Sprays in each nostril once daily. Rinse mouth after use. loratadine (CLARITIN) 10 mg tablet Take 1 tablet by mouth once daily. albuterol HFA (PROAIR HFA) 90 mcg/actuation inhaler Inhale 2 Puffs as instructed every 6 hours as needed. omeprazole (PRILOSEC) 40 mg capsule Take 1 capsule by mouth once daily. naproxen sodium 220 mg cap Take 220 mg by mouth once daily. melatonin 3 mg tablet Take 3 mg by mouth once daily. ALLERGIES: ALLERGIES Allergen Reactions Raymond [Hydrocodone-* Hives, Swelling VITALS: BP 110/74 Pulse 93 Temp 36.9 C (98.4 F) (Tympanic) Resp 18 Wt 78.2 kg (172 lb 6.4 oz) SpO2 97% BMI 34.82 kg/m PE: Pleasant, in no acute distress. Hand: right. Adhesive bandages removed from the thumb and a finger revealing shallow abrasions. No erythema, vesicles, ecchymosis, edema, or ulceration of the hand or fingers. ASSESSMENT/PLAN: 1. Abrasion of right hand, initial encounter - ICD9: 914.0, ICD10: S60.511A (primary diagnosis) Mild abrasion. Declines dressing since the cuts are so minor. 2. Chronic wrist pain, right - ICD9: 719.43, 338.29, ICD10: M25.531, G89.29 Continue supportive care. Schedule follow up with orthopedics. I will send a phone encounter noting concerns about MRI result and difficulty performing her job. Dakota Paz MD documented in this encounter [facility] 01-20-2023 Miscellaneous Notes Patient was notified and given number to call for home test Hoda Lin Ma Based on those symptoms would recommend HSAT to evaluate for possible sleep apnea. While waiting on results would recommend sleeping on her side instead of back or stomach and should work on healthy diet and exercise to promote weight loss. Spoke to Cheyanne who advised she does have daytime sleepiness, snoring and has been told that she stops breathing for few seconds while snoring. Regarding dental patient has dentist Hoda Lin Ma Tried calling Pt her VM was full. Will need to call back later. Please call patient and let her know hematology thinks white count possible related to stress possibly ( sleep apnea.) She reported she had fatigue. Does she notice if she is often drowsy in the middle of the day. Has she been told she snores or stops breathing for a few seconds when sleeping. Also inquiring about teeth- does she have a lot of dental caries? Tootie Mujica APRN.ANALISA documented in this encounter [facility] 01-13-2023 Miscellaneous Notes Phoned patient and reviewed results and recommendations with her. She voiced understanding. Please call patient and let her know her blood shows increased white count as it has in the past. I reached out to our pharmacy stock clerk and he recommended some additional labs. I have placed orders for these and she can come complete at her convenience. Tootie Mujica APRN.ANALISA documented in this encounter [facility] 12-01-2022 Note HNO ID: [id number] Author: Tootie Mujica APRN.CNP Service: ? Author Type: Nurse Practitioner Type: Progress Notes Filed: 12/03/2022 8:16 AM Note Text: 12/01/2022 Patient presents with: Multiple Concerns: Patient concerned with being sick frequently and has been sick for the last 2 months. Including pneumonia. Sleeping often. Falling asleep and not remembering. Low appetite and not eating properly, low fluid intake. Increased fatigue. SUBJECTIVE: This is a 37 year old, accompanied by sister that is here today for Above Complaints. Patient with multiple concerns. Reports over the last year has been getting frequent illness such as pneumonia and recurrent upper respiratory infections. Must recently had pneumonia in October. Reports she misses work frequently due to this. Denies sinus pain/pressure. Uses OTC nasal decongestant spray frequently. Admits to rhinorrhea and nasal congestion Falls asleep easily. Easily fatigued, low fluid intake because does not feel thristy Has low appetite- thinks related to bad teeth- recently got some teeth pulled. Has generalized weakness Sister says she snores and has witnessed her stop breathing then gasp when sleeping. Admits to SOB at times and wheezing. Has inhaler she uses which helps. Denies dyspnea, chest pain or palpitations. Smoked for 17 years but has been smoke free since 2021 Admits to having several animals in the home PAST MEDICAL HISTORY Diagnosis Date Arthritis Kidney stones ALLERGIES Raymond [Hydrocodone-Acetaminophen] MEDICATIONS Current Outpatient Medications Medication Sig ondansetron orally disintegrating (ZOFRAN ODT) 4 mg disintegrating tablet Take 1 tablet by mouth every 6 hours as needed for nausea/vomiting. albuterol HFA (PROAIR HFA) 90 mcg/actuation inhaler Inhale 2 Puffs as instructed every 6 hours as needed. omeprazole (PRILOSEC) 40 mg capsule Take 1 capsule by mouth once daily. naproxen sodium 220 mg cap Take 220 mg by mouth once daily. albuterol HFA (VENTOLIN HFA) 90 mcg/actuation inhaler Inhale 2 Puffs as instructed every 4 hours as needed for wheezing/shortness of breath. melatonin 3 mg tablet Take 3 mg by mouth once daily. No current facility-administered medications for this visit. Medications and allergies reviewed by this provider. SOCIAL HISTORY Social History Tobacco Use Smoking status: Former Packs/day: 0.50 Years: 17.00 Pack years: 8.50 Types: Cigarettes Quit date: 10/07/2021 Years since quittin.1 Smokeless tobacco: Never Vaping Use Vaping Use: Never used Substance Use Topics Alcohol use: No Drug use: No REVIEW OF SYSTEMS All other reviewed and negative other than HPI. OBJECTIVE: BP 112/78 Pulse 87 Temp 36.7 ?C (98 ?F) Resp 18 Wt 75.3 kg (166 lb) SpO2 100% BMI 33.53 kg/m? . Vital signs reviewed by this provider. APPEARANCE Well appearing, alert, in no acute distress, well-hydrated, well nourished. EYES conjunctiva and sclera normal. EARS External ears normal, canals clear NECK Supple, no adenopathy; thyroid symmetric, normal size HEART RRR with normal S1 and S2, no murmurs, no gallops, no JVD appreciated LUNG clear to auscultation. No wheezes, rhonchi or rales EXTREMITIES Extremities normal, No deformities, No skin discoloration, and No edema SKIN Skin color, texture, turgor normal, no suspicious rashes or lesions to exposed skin HEPATITIS B(1 of 3 - 3-dose series) Never done HEPATITIS C SCREENING Never done HIV SCREENING Never done DTAP,TDAP,TD(1 - Tdap) Never done HPV TESTING Never done DEPRESSION ASSESSMENT Never done PAP TESTING due on 10/13/2027 INFLUENZA Completed COVID-19 VACCINE Completed ASSESSMENT/PLAN: 1. Fatigue, unspecified type - ICD9: 780.79, ICD10: R53.83 (primary diagnosis) - consider thyroid vs dehydration vs anemia - CBC + DIFF - TSH BLD - COMP METABOLIC PANEL 2. SOB (shortness of breath) - ICD9: 786.05, ICD10: R06.02 - consider COPD since had hx of smoking for 17 years - SPIROMETRY - BASELINE AND POST DILATOR - XR CHEST 2V FRONTAL/LAT - follow-up pending testing 3. Generalized weakness - ICD9: 780.79, ICD10: R53.1 - consider dehydration vs thyroid vs anemia - CBC + DIFF - TSH BLD - COMP METABOLIC PANEL - stay well hydrated with water- aim for 64 ounces daily - follow-up pending blooding work 4. Rhinorrhea - ICD9: 478.19, ICD10: J34.89 - possibly related to allergies - FLUTICASONE PROPIONATE 50 MCG/ACTUATION NASAL SPRAY,SUSPENSION - LORATADINE 10 MG TABLET - consider ENT vs allergy testing if not improving 5. Snoring - ICD9: 786.09, ICD10: R06.83 - consider sleep apnea - POLYSOMNOGRAM (PSG) - follow-up pending sleep study 6. Daytime somnolence - ICD9: 780.54, ICD10: R40.0 - plan as in #5 - POLYSOMNOGRAM (PSG) 7. Witnessed apneic spells - ICD9: 786.03, ICD10: R06.81 - plan as in #5 - POLYSOMNOGRAM (PSG) 8. Nasal congestion - ICD9: 478.19, ICD10: R09.81 - plan (more content not included)... [facility] 12-01-2022 Instructions Tootie Mujica APRN.CNP - 12/01/2022 7:11 PM EDT Follow-up pending testing documented in this encounter [facility] 12-01-2022 History of Presen t illness Narrative 12/01/2022 Patient presents with: Multiple Concerns: Patient concerned with being sick frequently and has been sick for the last 2 months. Including pneumonia. Sleeping often. Falling asleep and not remembering. Low appetite and not eating properly, low fluid intake. Increased fatigue. SUBJECTIVE: This is a 37 year old, accompanied by sister that is here today for Above Complaints. Patient with multiple concerns. Reports over the last year has been getting frequent illness such as pneumonia and recurrent upper respiratory infections. Must recently had pneumonia in October. Reports she misses work frequently due to this. Denies sinus pain/pressure. Uses OTC nasal decongestant spray frequently. Admits to rhinorrhea and nasal congestion Falls asleep easily. Easily fatigued, low fluid intake because does not feel thristy Has low appetite- thinks related to bad teeth- recently got some teeth pulled. Has generalized weakness Sister says she snores and has witnessed her stop breathing then gasp when sleeping. Admits to SOB at times and wheezing. Has inhaler she uses which helps. Denies dyspnea, chest pain or palpitations. Smoked for 17 years but has been smoke free since 2021 Admits to having several animals in the home PAST MEDICAL HISTORY Diagnosis Date Arthritis Kidney stones ALLERGIES Raymond [Hydrocodone-Acetaminophen] MEDICATIONS Current Outpatient Medications Medication Sig ondansetron orally disintegrating (ZOFRAN ODT) 4 mg disintegrating tablet Take 1 tablet by mouth every 6 hours as needed for nausea/vomiting. albuterol HFA (PROAIR HFA) 90 mcg/actuation inhaler Inhale 2 Puffs as instructed every 6 hours as needed. omeprazole (PRILOSEC) 40 mg capsule Take 1 capsule by mouth once daily. naproxen sodium 220 mg cap Take 220 mg by mouth once daily. albuterol HFA (VENTOLIN HFA) 90 mcg/actuation inhaler Inhale 2 Puffs as instructed every 4 hours as needed for wheezing/shortness of breath. melatonin 3 mg tablet Take 3 mg by mouth once daily. No current facility-administered medications for this visit. Medications and allergies reviewed by this provider. SOCIAL HISTORY Social History Tobacco Use Smoking status: Former Packs/day: 0.50 Years: 17.00 Pack years: 8.50 Types: Cigarettes Quit date: 10/07/2021 Years since quittin.1 Smokeless tobacco: Never Vaping Use Vaping Use: Never used Substance Use Topics Alcohol use: No Drug use: No REVIEW OF SYSTEMS All other reviewed and negative other than HPI. OBJECTIVE: BP 112/78 Pulse 87 Temp 36.7 C (98 F) Resp 18 Wt 75.3 kg (166 lb) SpO2 100% BMI 33.53 kg/m . Vital signs reviewed by this provider. APPEARANCE Well appearing, alert, in no acute distress, well-hydrated, well nourished. EYES conjunctiva and sclera normal. EARS External ears normal, canals clear NECK Supple, no adenopathy; thyroid symmetric, normal size HEART RRR with normal S1 and S2, no murmurs, no gallops, no JVD appreciated LUNG clear to auscultation. No wheezes, rhonchi or rales EXTREMITIES Extremities normal, No deformities, No skin discoloration, and No edema SKIN Skin color, texture, turgor normal, no suspicious rashes or lesions to exposed skin HEPATITIS B(1 of 3 - 3-dose series) Never done HEPATITIS C SCREENING Never done HIV SCREENING Never done DTAP,TDAP,TD(1 - Tdap) Never done HPV TESTING Never done DEPRESSION ASSESSMENT Never done PAP TESTING due on 10/13/2027 INFLUENZA Completed COVID-19 VACCINE Completed ASSESSMENT/PLAN: 1. Fatigue, unspecified type - ICD9: 780.79, ICD10: R53.83 (primary diagnosis) - consider thyroid vs dehydration vs anemia - CBC + DIFF - TSH BLD - COMP METABOLIC PANEL 2. SOB (shortness of breath) - ICD9: 786.05, ICD10: R06.02 - consider COPD since had hx of smoking for 17 years - SPIROMETRY - BASELINE AND POST DILATOR - XR CHEST 2V FRONTAL/LAT - follow-up pending testing 3. Generalized weakness - ICD9: 780.79, ICD10: R53.1 - consider dehydration vs thyroid vs anemia - CBC + DIFF - TSH BLD - COMP METABOLIC PANEL - stay well hydrated with water- aim for 64 ounces daily - follow-up pending blooding work 4. Rhinorrhea - ICD9: 478.19, ICD10: J34.89 - possibly related to allergies - FLUTICASONE PROPIONATE 50 MCG/ACTUATION NASAL SPRAY,SUSPENSION - LORATADINE 10 MG TABLET - consider ENT vs allergy testing if not improving 5. Snoring - ICD9: 786.09, ICD10: R06.83 - consider sleep apnea - POLYSOMNOGRAM (PSG) - follow-up pending sleep study 6. Daytime somnolence - ICD9: 780.54, ICD10: R40.0 - plan as in #5 - POLYSOMNOGRAM (PSG) 7. Witnessed apneic spells - ICD9: 786.03, ICD10: R06.81 - plan as in #5 - POLYSOMNOGRAM (PSG) 8. Nasal congestion - ICD9: 478.19, ICD10: R09.81 - plan as in #4 - FLUTICASONE PROPIONATE 50 MCG/ACTUATION NASAL SPRAY,SUSPENSION - LORATADINE 10 MG TABLET Tootie Mujica APRN.HOT DIP GALVANIZER Prescription instructions reviewed with patient as applicable. Patient advised if symptoms do not improve or if symptoms worsen sooner, to contact their primary care physician. Potential red flag symptoms discussed with the patient. Reviewed appropriate action plan to take if red flag symptoms occur. Patient agreeable to treatment plan. I spent a total of 35 minutes on the date of the service which included preparing to see the patient, [id number] patient care, completing clinical documentation, obtaining and/or reviewing separately obtained history, performing a medically appropriate examination, counseling and educating the patient/family/caregiver, and ordering medications, tests, or procedures. documented in this encounter [facility] 12-01-2022 Miscellaneous Notes Patient scheduled appointment this day. Luz Patel LPN documented in this encounter [facility] 11-15-2022 Note HNO ID: [id number] Author: Carito Medeiros PA-C Service: ? Author Type: Physician Head Grinder Type: Progress Notes Filed: 11/15/2022 7:40 PM Note Text: 37 year old female with c/o 2 months ago started with congestion, SOB. Went to said had URI Went to ER 2 weeks later with multifocal pneumonia. About 2 weeks later tested + positive for Strep. Vomited mostly from cough, about 4 times. Now having diarrhea. 3a this morning with stools every 15 minutes, at least thirty . Feeling lightheaded and dizzy but not syncopal. Appetite is present, ate a banana to day, Getting fluids with water, body armor. HISTORIES FAMILY HISTORY Problem Relation Age of Onset Breast Cancer Mother Hypertension Mother Heart Mother other (ms) Mother Fibromyalgia Mother No Known Problems Father Diabetes Sister No Known Problems Brother other (MS) Maternal Grandmother Breast Cancer Maternal Grandmother Heart Maternal Grandmother other (hTN) Maternal Grandmother No Known Problems Maternal Grandfather No Known Problems Paternal Grandmother No Known Problems Paternal Grandfather PAST MEDICAL HISTORY Diagnosis Date Arthritis Kidney stones PAST SURGICAL HISTORY Procedure Laterality Date HYSTERECTOMY HX 2011 has left ovary LAP UMBILICAL HERNIA REPAIR Social History Tobacco Use Smoking status: Former Packs/day: 0.50 Years: 17.00 Pack years: 8.50 Types: Cigarettes Quit date: 10/07/2021 Years since quittin.1 Smokeless tobacco: Never Vaping Use Vaping Use: Never used Substance Use Topics Alcohol use: No Drug use: No There is no problem list on file for this patient. Current Outpatient Medications Medication Sig Dispense Refill amoxicillin (AMOXIL) 875 mg tablet Take 1 tablet by mouth twice daily for 10 days. 20 tablet 0 albuterol HFA (PROAIR HFA) 90 mcg/actuation inhaler Inhale 2 Puffs as instructed every 6 hours as needed. 1 Each 0 omeprazole (PRILOSEC) 40 mg capsule Take 1 capsule by mouth once daily. 30 capsule 2 naproxen sodium 220 mg cap Take 220 mg by mouth once daily. albuterol HFA (VENTOLIN HFA) 90 mcg/actuation inhaler Inhale 2 Puffs as instructed every 4 hours as needed for wheezing/shortness of breath. 18 g 0 melatonin 3 mg tablet Take 3 mg by mouth once daily. No current facility-administered medications for this visit. HEPATITIS B(1 of 3 - 3-dose series) Never done HEPATITIS C SCREENING Never done HIV SCREENING Never done DTAP,TDAP,TD(1 - Tdap) Never done HPV TESTING Never done DEPRESSION ASSESSMENT Never done EXAM: BP 110/62 Pulse 86 Temp 36.6 ?C (97.8 ?F) (Left Tympanic) Wt 73.9 kg (163 lb) SpO2 97% BMI 32.92 kg/m? Pleasant adult woman in no acute distress, talkative and joking.. Alert and oriented all spheres. Normal affect and cognition. Speech normal. No deficits to learning or comprehension. Skin warm, dry, pink to lips and nailbeds. Normal turgor. Respirations regular and unlabored. HEENT: NCAT. No scleral icterus or conjunctival injection. TM's clear. Nose and oropharynx free from injection or lesion. Oral membranes moist and pink. No cervical lymph nodes. Thyroid non-tender, no masses, or enlargement. Carotids pulses 2+/4+ without bruits. No JVD with HOB at 30 degrees. .Chest is normal shape. Lungs are clear to all cornejo with good air exchange through out. HRRR without murmur or gallop. No lifts, heaves, or rubs. Abdomen: active bowel sounds throughout, soft, nontender, no masses or organomegaly. No CVAT. Extrem: no clubbing or cyanosis. Edema: none. Extremities are warm and pink with prompt capillary refill. ASSESSMENT/PLAN: 1. Vomiting and diarrhea - ICD9: 787.03, 787.91, ICD10: R11.10, R19.7 Push fluid and electrolytes. See d/c instructions. Carito Medeiros PA-C [facility] 11-15-2022 Instructions Carito Medeiros PA-C - 11/15/2022 3:37 PM EST Stomach Flu (Viral Gastroenteritis) What is stomach flu? Stomach flu is a viral infection that affects the stomach and small intestine. It is also called viral gastroenteritis. The illness is usually brief, lasting 1 to 3 days, but may have intermittent symptoms up to a few weeks. How does it occur? Many different viruses can cause gastroenteritis, including rotaviruses, adenoviruses, and the Thurston virus. Gastroenteritis is caused by swallowing one of these viruses. The body fluids of infected people contain the virus, sometimes even before their symptoms begin. The virus can be spread by direct contact with an infected person (for example, kissing or shaking hands) or by sharing food, drink, or eating utensils. The virus enters the stomach and intestine and inflames the lining of these organs. As a result, the stomach and intestine are temporarily unable to perform their usual functions. The virus can also cause food to move more rapidly through your gastrointestinal (GI) tract. Some bacteria, parasites, medicines, or other medical conditions can cause infections that have symptoms similar to those of stomach flu. If your symptoms are unusually severe or last longer than a few days, your health care provider can determine if the diarrhea is caused by a virus or by something else. What are the symptoms? When you have stomach flu, you may have one or more of the following symptoms: nausea vomiting stomach cramps diarrhea mild fever fatigue chills loss of appetite muscle aches. The illness may develop over a period of hours, or it may suddenly start with stomach cramps, vomiting, or diarrhea. How is it diagnosed? Your health care provider will review your symptoms. He or she may examine you and order lab tests to rule out more serious illnesses, such as appendicitis, and to detect complications, such as dehydration. How is it treated? The most important thing to do is to rest the stomach and intestines. You can do this by first eating nothing solid and drinking only clear liquids. A little later you can eat soft bland foods that are easy to digest. If you have been vomiting a lot, it is best to have only small, frequent sips of liquids. Drinking too much at once, even an ounce or two, may cause more vomiting. Start with small sips (1 tbsp) of clear liquids every 10-15 min, including water, ice, popsicles, jello, etc. This will keep you from becoming dehydrated. Once tolerating sips for 3-4 hours without vomiting, may increase to larger amounts of clear liquids. Your choice of liquids is important. If water is the only liquid you can drink without vomiting, that is okay. However, if you have been vomiting often for a long time, you must replace the minerals, sodium and potassium, that are lost when you vomit. Sports drinks are generally good sources for fluid and electrolyte replacement for adults. Pedialye, ricelyte, or World Health Organization Replacement Fluids are better for smaller children or babies. Other clear liquids you can drink are weak tea and apple juice. You may also drink soft drinks without caffeine (such as 7-UP) after letting them go flat (lose their carbonation). Chilling the liquids may help you keep them down. Avoid liquids that are acidic (such as orange juice) or caffeinated (such as coffee) or have a lot of carbonation. Do not drink milk until you have gone a few days without diarrhea. You may start eating soft bland foods when you have not vomited for several hours and are able to drink clear liquids without further upset. Soda crackers, toast, plain noodles, gelatin, eggs, applesauce, and bananas are good first choices. Avoid foods that are acidic, spicy, fatty, or fibrous (such as meats, coarse grains, vegetables). Also avoid dairy products. You may start eating these foods again in 3 days or so, when all signs of illness have passed. Sometimes treatment includes prescription medicine to prevent nausea and vomiting or diarrhea. Nonprescription medicine, such as Immodium AD, is available for the treatment of diarrhea and can be very effective. If you use it, make sure you use only the dose recommended on the package. If you have chronic health problems, always check with your health care provider before you use any medicine for diarrhea. If your vomiting or diarrhea persists for more than three days without improvement, please call the office. It is not uncommon for symptoms to improve for a few days and then reoccur for another day or two within a two to three week period. If symptoms persist longer, or is excessive, you may need to have an exam to rule out more serious problems and to check for dehydration. You may also need to have lab tests to determine whether bacteria or germs such as giardia are causing your illness. Dehydration is a potentially serious complication of stomach flu. It can occur if your body loses too much fluid because you keep vomiting or having diarrhea. If you are severely dehydrated, you may need to be given fluids intravenously (IV). In children and older adults, dehydration can quickly become life threatening. Signs of dehydration include dry mouth, sunken eyes, dizziness onstanding or moving, diminished urine or tears, and extreme weakness or lethargy. If you or your child have these symtpoms, please go to the emergency room for immediate attention and intravenous hydratiom. How long do the effects last? Stomach flu rarely lasts longer than 1 to 3 days. However, it may be 1 to 2 weeks before your bowel habits return completely to normal. Again, it is not uncommon to be better for a few days or evena week, and then have another day or two of symptoms. How can I take care of myself? Rest your stomach and intestines by following the guidelines above, but make sure you prevent dehydration by drinking enough liquids. Drink just small amounts often during the vomiting phase of your illness. Do not take aspirin, ibuprofen, or other NSAIDS without checking first with your health care provider. Call the office if: Your symptoms are getting worse. You continue to have severe symptoms for more than 2 or 3 days, or you are just not getting better after a few days. You develop symptoms that are not usually caused by stomach flu, such as blood in your vomit, bloody diarrhea, or severe abdominal pain. What can I do to help prevent stomach flu? The single, most helpful way to prevent the spread of stomach flu is frequent, thorough hand washing. Also, avoid contact with the body fluids of an infected person, including saliva. Don't share food with someone who has stomach flu. Published by [employer]. This content is reviewed periodically and is subject to change as new health information becomes available. The information is intended to inform and educate and is not a replacement for medical evaluation, advice, diagnosis or treatment by a healthcare professional. Developed by [employer]. Copyright 2005 [employer] and/or one of its subsidiaries. All Rights Reserved. Special Instructions: If severe pain, faintness, muscle aches, go to the emergency department. documented in this encounter [facility] 11-15-2022 History of Presen t illness Narrative 37 year old female with c/o 2 months ago started with congestion, SOB. Went to said had URI Went to ER 2 weeks later with multifocal pneumonia. About 2 weeks later tested + positive for Strep. Vomited mostly from cough, about 4 times. Now having diarrhea. 3a this morning with stools every 15 minutes, at least thirty . Feeling lightheaded and dizzy but not syncopal. Appetite is present, ate a banana to day, Getting fluids with water, body armor. HISTORIES FAMILY HISTORY Problem Relation Age of Onset Breast Cancer Mother Hypertension Mother Heart Mother other (ms) Mother Fibromyalgia Mother No Known Problems Father Diabetes Sister No Known Problems Brother other (MS) Maternal Grandmother Breast Cancer Maternal Grandmother Heart Maternal Grandmother other (hTN) Maternal Grandmother No Known Problems Maternal Grandfather No Known Problems Paternal Grandmother No Known Problems Paternal Grandfather PAST MEDICAL HISTORY Diagnosis Date Arthritis Kidney stones PAST SURGICAL HISTORY Procedure Laterality Date HYSTERECTOMY HX 2012 has left ovary LAP UMBILICAL HERNIA REPAIR Social History Tobacco Use Smoking status: Former Packs/day: 0.50 Years: 17.00 Pack years: 8.50 Types: Cigarettes Quit date: 10/07/2021 Years since quittin.1 Smokeless tobacco: Never Vaping Use Vaping Use: Never used Substance Use Topics Alcohol use: No Drug use: No There is no problem list on file for this patient. Current Outpatient Medications Medication Sig Dispense Refill amoxicillin (AMOXIL) 875 mg tablet Take 1 tablet by mouth twice daily for 10 days. 20 tablet 0 albuterol HFA (PROAIR HFA) 90 mcg/actuation inhaler Inhale 2 Puffs as instructed every 6 hours as needed. 1 Each 0 omeprazole (PRILOSEC) 40 mg capsule Take 1 capsule by mouth once daily. 30 capsule 2 naproxen sodium 220 mg cap Take 220 mg by mouth once daily. albuterol HFA (VENTOLIN HFA) 90 mcg/actuation inhaler Inhale 2 Puffs as instructed every 4 hours as needed for wheezing/shortness of breath. 18 g 0 melatonin 3 mg tablet Take 3 mg by mouth once daily. No current facility-administered medications for this visit. HEPATITIS B(1 of 3 - 3-dose series) Never done HEPATITIS C SCREENING Never done HIV SCREENING Never done DTAP,TDAP,TD(1 - Tdap) Never done HPV TESTING Never done DEPRESSION ASSESSMENT Never done EXAM: BP 110/62 Pulse 86 Temp 36.6 C (97.8 F) (Left Tympanic) Wt 73.9 kg (163 lb) SpO2 97% BMI 32.92 kg/m Pleasant adult woman in no acute distress, talkative and joking.. Alert and oriented all spheres. Normal affect and cognition. Speech normal. No deficits to learning or comprehension. Skin warm, dry, pink to lips and nailbeds. Normal turgor. Respirations regular and unlabored. HEENT: NCAT. No scleral icterus or conjunctival injection. TM's clear. Nose and oropharynx free from injection or lesion. Oral membranes moist and pink. No cervical lymph nodes. Thyroid non-tender, no masses, or enlargement. Carotids pulses 2+/4+ without bruits. No JVD with HOB at 30 degrees. .Chest is normal shape. Lungs are clear to all cornejo with good air exchange through out. HRRR without murmur or gallop. No lifts, heaves, or rubs. Abdomen: active bowel sounds throughout, soft, nontender, no masses or organomegaly. No CVAT. Extrem: no clubbing or cyanosis. Edema: none. Extremities are warm and pink with prompt capillary refill. ASSESSMENT/PLAN: 1. Vomiting and diarrhea - ICD9: 787.03, 787.91, ICD10: R11.10, R19.7 Push fluid and electrolytes. See d/c instructions. Carito Medeiros PA-C documented in this encounter [facility] 11-14-2022 Note HNO ID: [id number] Author: Abe Calzada APRN.HOT DIP GALVANIZER Service: ? Author Type: Nurse Practitioner Type: Progress Notes Filed: 11/14/2022 3:15 PM Note Text: Subjective HPI HPI Arlet Navarro is a 37 year old female who presents today for CC of tooth pain. This started 4 days ago. Has tried otc medicaition for relief. Symptoms are worsened by nothing. Risk factors hx of poor dental health. .Patient presents with: Pain: Pt reported upper (LT) tooth pain , rated 10, x4 days. PAST MEDICAL HISTORY Diagnosis Date Arthritis Kidney stones PAST SURGICAL HISTORY Procedure Laterality Date HYSTERECTOMY HX 2011 has left ovary LAP UMBILICAL HERNIA REPAIR ALLERGIES Raymond [Hydrocodone-Acetaminophen] MEDICATIONS albuterol HFA (PROAIR HFA) 90 mcg/actuation inhaler Inhale 2 Puffs as instructed every 6 hours as needed. omeprazole (PRILOSEC) 40 mg capsule Take 1 capsule by mouth once daily. naproxen sodium 220 mg cap Take 220 mg by mouth once daily. albuterol HFA (VENTOLIN HFA) 90 mcg/actuation inhaler Inhale 2 Puffs as instructed every 4 hours as needed for wheezing/shortness of breath. melatonin 3 mg tablet Take 3 mg by mouth once daily. amoxicillin (AMOXIL) 875 mg tablet Take 1 tablet by mouth twice daily for 10 days. FAMILY HISTORY Problem Relation Age of Onset Breast Cancer Mother Hypertension Mother Heart Mother other (ms) Mother Fibromyalgia Mother No Known Problems Father Diabetes Sister No Known Problems Brother other (MS) Maternal Grandmother Breast Cancer Maternal Grandmother Heart Maternal Grandmother other (hTN) Maternal Grandmother No Known Problems Maternal Grandfather No Known Problems Paternal Grandmother No Known Problems Paternal Grandfather Social History Tobacco Use Smoking status: Former Packs/day: 0.50 Years: 17.00 Pack years: 8.50 Types: Cigarettes Quit date: 10/07/2021 Years since quittin.1 Smokeless tobacco: Never Vaping Use Vaping Use: Never used Substance Use Topics Alcohol use: No Drug use: No ROS Objective Blood pressure 116/68, pulse 100, temperature 36.8 ?C (98.2 ?F), temperature source Tympanic, resp. rate 18, weight 74.3 kg (163 lb 12.8 oz), SpO2 97 %. Physical Exam Constitutional: General: She is not in acute distress. Appearance: She is not toxic-appearing or diaphoretic. HENT: Head: Normocephalic and atraumatic. Mouth/Throat: Pharynx: Uvula midline. Posterior oropharyngeal erythema present. No pharyngeal swelling, oropharyngeal exudate or uvula swelling. Pulmonary: Effort: Pulmonary effort is normal. No accessory muscle usage or respiratory distress. Lymphadenopathy: Cervical: Cervical adenopathy present. Right cervical: Superficial cervical adenopathy present. Left cervical: Superficial cervical adenopathy present. Neurological: Mental Status: She is alert and oriented to person, place, and time. ASSESSMENT/PLAN: 1. Tooth ache - ICD9: 525.9, ICD10: K08.89 Take medication as ordered See dentist manjit Follow up if signs of infection worsen - AMOXICILLIN 875 MG TABLET Abe Calzada APRN.[facility] 11-14-2022 History of Presen t illness Narrative Images from the original note were not included. Subjective HPI HPI Arlet Navarro is a 37 year old female who presents today for CC of tooth pain. This started 4 days ago. Has tried otc medicaition for relief. Symptoms are worsened by nothing. Risk factors hx of poor dental health. .Patient presents with: Pain: Pt reported upper (LT) tooth pain , rated 10, x4 days. PAST MEDICAL HISTORY Diagnosis Date Arthritis Kidney stones PAST SURGICAL HISTORY Procedure Laterality Date HYSTERECTOMY HX 2012 has left ovary LAP UMBILICAL HERNIA REPAIR ALLERGIES Raymond [Hydrocodone-Acetaminophen] MEDICATIONS albuterol HFA (PROAIR HFA) 90 mcg/actuation inhaler Inhale 2 Puffs as instructed every 6 hours as needed. omeprazole (PRILOSEC) 40 mg capsule Take 1 capsule by mouth once daily. naproxen sodium 220 mg cap Take 220 mg by mouth once daily. albuterol HFA (VENTOLIN HFA) 90 mcg/actuation inhaler Inhale 2 Puffs as instructed every 4 hours as needed for wheezing/shortness of breath. melatonin 3 mg tablet Take 3 mg by mouth once daily. amoxicillin (AMOXIL) 875 mg tablet Take 1 tablet by mouth twice daily for 10 days. FAMILY HISTORY Problem Relation Age of Onset Breast Cancer Mother Hypertension Mother Heart Mother other (ms) Mother Fibromyalgia Mother No Known Problems Father Diabetes Sister No Known Problems Brother other (MS) Maternal Grandmother Breast Cancer Maternal Grandmother Heart Maternal Grandmother other (hTN) Maternal Grandmother No Known Problems Maternal Grandfather No Known Problems Paternal Grandmother No Known Problems Paternal Grandfather Social History Tobacco Use Smoking status: Former Packs/day: 0.50 Years: 17.00 Pack years: 8.50 Types: Cigarettes Quit date: 10/07/2021 Years since quittin.1 Smokeless tobacco: Never Vaping Use Vaping Use: Never used Substance Use Topics Alcohol use: No Drug use: No ROS Objective Blood pressure 116/68, pulse 100, temperature 36.8 C (98.2 F), temperature source Tympanic, resp. rate 18, weight 74.3 kg (163 lb 12.8 oz), SpO2 97 %. Physical Exam Constitutional: General: She is not in acute distress. Appearance: She is not toxic-appearing or diaphoretic. HENT: Head: Normocephalic and atraumatic. Mouth/Throat: Pharynx: Uvula midline. Posterior oropharyngeal erythema present. No pharyngeal swelling, oropharyngeal exudate or uvula swelling. Pulmonary: Effort: Pulmonary effort is normal. No accessory muscle usage or respiratory distress. Lymphadenopathy: Cervical: Cervical adenopathy present. Right cervical: Superficial cervical adenopathy present. Left cervical: Superficial cervical adenopathy present. Neurological: Mental Status: She is alert and oriented to person, place, and time. ASSESSMENT/PLAN: 1. Tooth ache - ICD9: 525.9, ICD10: K08.89 Take medication as ordered See dentist manjit Follow up if signs of infection worsen - AMOXICILLIN 875 MG TABLET Abe Calzada APRN.ANALISA documented in this encounter [facility] 10-15-2022 Miscellaneous Notes Patient notified.Mallory Smith LPN Note is in mychart. Patient calling and states she was seen in [facility] yesterday for Viral URI. She states her work will not allow pt to return to work until 24 hours of being symptom free. Patient is asking if EC provider could complete a work letter for her to be off today and tomorrow (10/15 and 10/16) due to her symptoms continuing today? Pt asking if letter can be sent to her account. Please call pt with update. Thank you. documented in this encounter [facility] 10-14-2022 Note HNO ID: [id number] Author: Martine Munroe PA-C Service: ? Author Type: Physician Head Grinder Type: Progress Notes Filed: 10/14/2022 3:57 PM Note Text: This note was created using [employer]ared[employer]. Subjective Arlet Navarro is a 37 year old female. HPI Patient presents with the chief complaint cough and wheezing over the past 2 days. She took 2 home COVID tests and one was positive and 1 was negative. She denies a fever. She has not had a sore throat. She does have an albuterol inhaler but is out of it. She is a former smoker having quit last year. She is vaccinated for COVID. No vomiting or diarrhea. No chest pain. Review of Systems Constitutional: Positive for fatigue. HENT: Positive for congestion and rhinorrhea. Negative for ear pain and sore throat. Respiratory: Positive for cough and wheezing. Cardiovascular: Negative for chest pain. Gastrointestinal: Negative. Genitourinary: Negative. Musculoskeletal: Positive for myalgias. Neurological: Positive for headaches. All other systems reviewed and are negative. PAST MEDICAL HISTORY Diagnosis Date Arthritis Kidney stones Current Outpatient Medications Medication Sig Dispense Refill omeprazole (PRILOSEC) 40 mg capsule Take 1 capsule by mouth once daily. 30 capsule 2 naproxen sodium 220 mg cap Take 220 mg by mouth once daily. albuterol HFA (VENTOLIN HFA) 90 mcg/actuation inhaler Inhale 2 Puffs as instructed every 4 hours as needed for wheezing/shortness of breath. 18 g 0 melatonin 3 mg tablet Take 3 mg by mouth once daily. predniSONE (DELTASONE) 20 mg tablet Take 2 tablets by mouth once daily for 5 days. 10 tablet 0 albuterol HFA (PROAIR HFA) 90 mcg/actuation inhaler Inhale 2 Puffs as instructed every 6 hours as needed. 1 Each 0 No current facility-administered medications for this visit. PAST SURGICAL HISTORY Procedure Laterality Date HYSTERECTOMY HX 2011 has left ovary LAP UMBILICAL HERNIA REPAIR FAMILY HISTORY Problem Relation Age of Onset Breast Cancer Mother Hypertension Mother Heart Mother other (ms) Mother Fibromyalgia Mother No Known Problems Father Diabetes Sister No Known Problems Brother other (MS) Maternal Grandmother Breast Cancer Maternal Grandmother Heart Maternal Grandmother other (hTN) Maternal Grandmother No Known Problems Maternal Grandfather No Known Problems Paternal Grandmother No Known Problems Paternal Grandfather Social History Tobacco Use Smoking status: Former Packs/day: 0.50 Years: 17.00 Pack years: 8.50 Types: Cigarettes Quit date: 10/07/2021 Years since quittin.0 Smokeless tobacco: Never Vaping Use Vaping Use: Never used Substance Use Topics Alcohol use: No Drug use: No Objective BP 120/70 Pulse 95 Temp 37.1 ?C (98.7 ?F) (Tympanic) Resp 18 Wt 76 kg (167 lb 9.6 oz) SpO2 97% BMI 33.85 kg/m? Physical Exam Vitals reviewed. Constitutional: Appearance: Normal appearance. HENT: Head: Normocephalic and atraumatic. Right Ear: Tympanic membrane, ear canal and external ear normal. Left Ear: Tympanic membrane, ear canal and external ear normal. Nose: Congestion present. Mouth/Throat: Mouth: Mucous membranes are moist. Pharynx: Oropharynx is clear. Cardiovascular: Rate and Rhythm: Normal rate and regular rhythm. Heart sounds: Normal heart sounds. Pulmonary: Effort: Pulmonary effort is normal. No respiratory distress. Breath sounds: Wheezing present. No rhonchi. Comments: Diffuse expiratory wheeze. Musculoskeletal: Cervical back: Neck supple. Skin: General: Skin is warm and dry. Neurological: General: No focal deficit present. Mental Status: She is alert. Assessment and Plan ASSESSMENT/PLAN: 1. Viral URI with cough - ICD9: 465.9, ICD10: J06.9 - prednisone and albuterol for wheezing. Covid testing pending. - Discussed viral etiology and rationale for treatment. - Symptomatic treatment with prn analgesia - Supportive care with fluids and rest - Follow up in 3-5 days if symptoms persist or sooner if worsening of symptoms - COVID WITH FLUA+B, ROUTINE Martine Munroe PA-C [facility] 10-14-2022 History of Presen t illness Narrative This note was created using [employer]. Subjective Arlet Navarro is a 37 year old female. HPI Patient presents with the chief complaint cough and wheezing over the past 2 days. She took 2 home COVID tests and one was positive and 1 was negative. She denies a fever. She has not had a sore throat. She does have an albuterol inhaler but is out of it. She is a former smoker having quit last year. She is vaccinated for COVID. No vomiting or diarrhea. No chest pain. Review of Systems Constitutional: Positive for fatigue. HENT: Positive for congestion and rhinorrhea. Negative for ear pain and sore throat. Respiratory: Positive for cough and wheezing. Cardiovascular: Negative for chest pain. Gastrointestinal: Negative. Genitourinary: Negative. Musculoskeletal: Positive for myalgias. Neurological: Positive for headaches. All other systems reviewed and are negative. PAST MEDICAL HISTORY Diagnosis Date Arthritis Kidney stones Current Outpatient Medications Medication Sig Dispense Refill omeprazole (PRILOSEC) 40 mg capsule Take 1 capsule by mouth once daily. 30 capsule 2 naproxen sodium 220 mg cap Take 220 mg by mouth once daily. albuterol HFA (VENTOLIN HFA) 90 mcg/actuation inhaler Inhale 2 Puffs as instructed every 4 hours as needed for wheezing/shortness of breath. 18 g 0 melatonin 3 mg tablet Take 3 mg by mouth once daily. predniSONE (DELTASONE) 20 mg tablet Take 2 tablets by mouth once daily for 5 days. 10 tablet 0 albuterol HFA (PROAIR HFA) 90 mcg/actuation inhaler Inhale 2 Puffs as instructed every 6 hours as needed. 1 Each 0 No current facility-administered medications for this visit. PAST SURGICAL HISTORY Procedure Laterality Date HYSTERECTOMY HX 2011 has left ovary LAP UMBILICAL HERNIA REPAIR FAMILY HISTORY Problem Relation Age of Onset Breast Cancer Mother Hypertension Mother Heart Mother other (ms) Mother Fibromyalgia Mother No Known Problems Father Diabetes Sister No Known Problems Brother other (MS) Maternal Grandmother Breast Cancer Maternal Grandmother Heart Maternal Grandmother other (hTN) Maternal Grandmother No Known Problems Maternal Grandfather No Known Problems Paternal Grandmother No Known Problems Paternal Grandfather Social History Tobacco Use Smoking status: Former Packs/day: 0.50 Years: 17.00 Pack years: 8.50 Types: Cigarettes Quit date: 10/07/2021 Years since quittin.0 Smokeless tobacco: Never Vaping Use Vaping Use: Never used Substance Use Topics Alcohol use: No Drug use: No Objective BP 120/70 Pulse 95 Temp 37.1 C (98.7 F) (Tympanic) Resp 18 Wt 76 kg (167 lb 9.6 oz) SpO2 97% BMI 33.85 kg/m Physical Exam Vitals reviewed. Constitutional: Appearance: Normal appearance. HENT: Head: Normocephalic and atraumatic. Right Ear: Tympanic membrane, ear canal and external ear normal. Left Ear: Tympanic membrane, ear canal and external ear normal. Nose: Congestion present. Mouth/Throat: Mouth: Mucous membranes are moist. Pharynx: Oropharynx is clear. Cardiovascular: Rate and Rhythm: Normal rate and regular rhythm. Heart sounds: Normal heart sounds. Pulmonary: Effort: Pulmonary effort is normal. No respiratory distress. Breath sounds: Wheezing present. No rhonchi. Comments: Diffuse expiratory wheeze. Musculoskeletal: Cervical back: Neck supple. Skin: General: Skin is warm and dry. Neurological: General: No focal deficit present. Mental Status: She is alert. Assessment and Plan ASSESSMENT/PLAN: 1. Viral URI with cough - ICD9: 465.9, ICD10: J06.9 - prednisone and albuterol for wheezing. Covid testing pending. - Discussed viral etiology and rationale for treatment. - Symptomatic treatment with prn analgesia - Supportive care with fluids and rest - Follow up in 3-5 days if symptoms persist or sooner if worsening of symptoms - COVID WITH FLUA+B, ROUTINE Martine Munroe PA-C documented in this encounter [facility] 10-14-2022 Influenza virus A and B RNA and SARS-CoV-2 (COVID-19) N gene panel MADHAVI+probe (Resp) COVID 19 RESULT: SARS-CoV-2 (Agent of COVID-19) Not Detected by RT-PCR or equivalent method. This test was developed and its performance characteristics determined by [facility] [place]. This test has been authorized by FDA under an Emergency Use Authorization (EUA). This test has been validated in accordance with the FDA's Guidance Document Policy for Diagnostics Testing in Laboratories Certified to Perform High Complexity Testing under CLIA prior to Emergency use Authorization for Coronavirus Disease 2019 during the Public Health Emergency issued on November 17, 2019. Test performed by [facility], [facility] [place], [address] [place] [address]. INFLUENZA A PCR: Negative for Influenza A by RT-PCR INFLUENZA B PCR: Negative for Influenza B by RT-PCR [facility] Diagnosis Epigastric pain- Primary Abdominal pain, epigastric Gastroesophageal reflux disease, unspecified whether esophagitis present Esophageal dysphagia Dysphagia, pharyngoesophageal phase [facility] Diagnosis Epigastric pain- Primary Abdominal pain, epigastric [facility] Diagnosis Epigastric pain Abdominal pain, epigastric Gastroesophageal reflux disease, unspecified whether esophagitis present Esophageal dysphagia Dysphagia, pharyngoesophageal phase [facility] Diagnosis Sore throat- Primary Acute pharyngitis Swelling of right eyelid [facility]* Diagnosis Viral illness- Primary Unspecified viral infection, in conditions classified elsewhere and of unspecified site URI, acute Acute upper respiratory infections of unspecified site [facility] Diagnosis Lower abdominal pain- Primary Abdominal pain, other specified site [facility] Diagnosis Rash- Primary Rash and other nonspecific skin eruption Upper respiratory symptom Other symptoms involving respiratory system and chest Suspected COVID-19 virus infection [facility] Diagnosis Pain of left heel- Primary Pain in limb [facility] Diagnosis Plantar fasciitis- Primary Plantar fascial fibromatosis Pain of left heel Pain in limb [facility]* Diagnosis Wrist injuries, right, initial encounter- Primary Abnormal x-ray Other nonspecific (abnormal) findings on radiological and other examinations of body structure [facility]* Diagnosis SOB (shortness of breath)- Primary Shortness of breath [facility]* Diagnosis Diarrhea, unspecified type- Primary Wheezing Upper respiratory tract infection, unspecified type [facility] Diagnosis Primary osteoarthritis of first carpometacarpal joint of right hand- Primary Primary localized osteoarthrosis, hand Right wrist pain Pain in joint, forearm Disorder of bone Disorder of bone and cartilage, unspecified [facility]* Diagnosis Leukocytosis, unspecified type- Primary Encounter for immunization Need for other specified prophylactic vaccination against single bacterial disease Muscle spasm Spasm of muscle [facility]* Diagnosis Forearm strain, right, initial encounter- Primary [facility] Diagnosis Encounter for gynecological examination (general) (routine) without abnormal findings- Primary Encounter for screening for human papillomavirus (HPV) Special screening examination for human papillomavirus (HPV) Pelvic pain in female Unspecified symptom associated with female genital organs Encounter for screening mammogram for malignant neoplasm of breast Other screening mammogram [facility]* Diagnosis Leukocytosis, unspecified type- Primary [facility] Diagnosis Bleeding hemorrhoid Unspecified hemorrhoids with other complication [facility]* Diagnosis Ovarian cyst, left- Primary Other and unspecified ovarian cyst [facility]* Diagnosis Sore throat- Primary Acute pharyngitis URI, acute Acute upper respiratory infections of unspecified site [facility]* Diagnosis Epigastric pain Abdominal pain, epigastric Gastroesophageal reflux disease, unspecified whether esophagitis present [facility]* Diagnosis Complex cyst of left ovary- Primary [facility]* Diagnosis Pelvic pain in female- Primary Unspecified symptom associated with female genital organs Levator spasm Abnormal involuntary movements Family history of malignant neoplasm of breast documented in this encounter [facility] note* Diagnosis Viral URI with cough- Primary Acute upper respiratory infections of unspecified site [facility]* Diagnosis Tooth ache- Primary [facility]* Diagnosis Vomiting and diarrhea- Primary Vomiting alone [facility]* Diagnosis Fatigue, unspecified type- Primary SOB (shortness of breath) Shortness of breath Generalized weakness Other malaise and fatigue Rhinorrhea Other diseases of nasal cavity and sinuses Snoring Other dyspnea and respiratory abnormality Daytime somnolence Hypersomnia, unspecified Witnessed apneic spells Apnea Nasal congestion Other diseases of nasal cavity and sinuses [facility] Diagnosis Abnormal CBC- Primary Other abnormal blood chemistry documented in this encounter [facility] note* Diagnosis Daytime somnolence- Primary Hypersomnia, unspecified [facility] Diagnosis Abrasion of right hand, initial encounter- Primary Chronic wrist pain, right documented in this encounter [facility] note* Diagnosis Epigastric pain Abdominal pain, epigastric Gastroesophageal reflux disease, unspecified whether esophagitis present [facility]* Diagnosis Carpal tunnel syndrome of right wrist- Primary Carpal tunnel syndrome Ulnar neuropathy at elbow of right upper extremity documented in this encounter [facility] note* Diagnosis ZOFIA (obstructive sleep apnea)- Primary Obstructive sleep apnea (adult) (pediatric) Hypoxia Hypoxemia documented in this encounter [facility] note* Diagnosis Epigastric pain Abdominal pain, epigastric Gastroesophageal reflux disease, unspecified whether esophagitis present documented in this encounter [facility] note* Diagnosis Pelvic pain in female Unspecified symptom associated with female genital organs documented in this encounter [facility] note* Diagnosis Ovarian cyst, left Other and unspecified ovarian cyst documented in this encounter [facility] note* Diagnosis URI, acute- Primary Acute upper respiratory infections of unspecified site Nausea and vomiting, unspecified vomiting type documented in this encounter [facility] for referral (narrative)* Diagnostic Procedure Only (Urgent) - Authorized Specialty Diagnoses / Procedures Referred By Vicente moran Referred To Contact US IMAGING Diagnoses Epigastric pain Procedures US ABD RT UPPER QUADRANT US ABDOMINAL REAL TIME W/IMAGE LIMITED Shaniqua Beckford MD [address] [place] [address] Us Imaging Referral ID Status Reason Start Date Expiration Date Visits Requested Visits Authorized [id number] Authorized Auto-Generat ed Referral 12/07/2021 01/06/2023 1 1 * Consult, Test, Treat (Routine) - Authorized Specialty Diagnoses / Procedures Referred By Vicente moran Referred To Contact Gastroenterology Diagnoses Esophageal dysphagia Odynophagia Early satiety Procedures CONSULT TO GASTROENTEROLOGY OFFICE/OUTPATIENT [facility] 60-74 MINUTES Shaniqua Beckford MD [address] [place] [address] Referral ID Status Reason Start Date Expiration Date Visits Requested Visits Authorized [id number] Authorized PCP Requested Referral 12/07/2021 12/07/2022 1 1 * Diagnostic Procedure Only (Routine) - Closed Specialty Diagnoses / Procedures Referred By Vicente t Referred To Contact XR IMAGING Diagnoses Gastroesophageal reflux disease, unspecified whether esophagitis present Esophageal dysphagia Odynophagia Early satiety Procedures XR ABDOMEN 1V SUPINE RADIOLOGIC EXAM ABDOMEN 1 VIEW Shaniqua Beckford MD [address] [place] [address] Xr Imaging Referral ID Status Reason Start Date Expiration Date V isits Requested Visits Authorized [id number] Closed Auto-Generate d Referral 12/07/2021 01/06/2023 [address] [facility] for referral (narrative)* Diagnostic Procedure Only (Urgent) - Closed Specialty Diagnoses / Procedures Referred By Contac t Referred To Contact US IMAGING Diagnoses Epigastric pain Gastroesophageal reflux disease, unspecified whether esophagitis present Esophageal dysphagia Procedures US ABD RT UPPER QUADRANT US ABDOMINAL REAL TIME W/IMAGE LIMITED Shaniqua Beckford MD [address] [place] [address] Us Imaging Referral ID Status Reason Start Date Expiration Date V isits Requested Visits Authorized [id number] Closed Auto-Generate d Referral 12/08/2021 01/07/2023 [address] [facility] for referral (narrative)* Diagnostic Procedure Only (Urgent) - Closed Specialty Diagnoses / Procedures Referred By Vicente t Referred To Contact US IMAGING Diagnoses Epigastric pain Gastroesophageal reflux disease, unspecified whether esophagitis present Esophageal dysphagia Procedures US ABD RT UPPER QUADRANT US ABDOMINAL REAL TIME W/IMAGE LIMITED Shaniqua Beckford MD [address] [place] [address] Us Imaging Referral ID Status Reason Start Date Expiration Date V isits Requested Visits Authorized [id number] Closed Auto-Generate d Referral 12/08/2021 01/07/2023 [address] [facility] for referral (narrative)* Diagnostic Procedure Only (Routine) - Authorized Specialty Diagnoses / Procedures Referred By Jonatanac t Referred To Contact BR IMAGING Diagnoses Encounter for screening mammogram for malignant neoplasm of breast Procedures ARACELI SCREENING W HOLLIS SCREENING DIGITAL BREAST TOMOSYNTHESIS BI SCREENING MAMMOGRAPHY BI 2-VIEW BREAST INC Alyssa Ojeda, DAMARI.ANALISA [address] [place] [address] [facility] [address] [place] [address] Referral ID Status Reason Start Date Expiration Date Visits Requested Visits Authorized [id number] Authorized Auto-Generat ed Referral 2 09/01/2023 1 1 * Diagnostic Procedure Only (Routine) - Authorized Specialty Diagnoses / Procedures Referred By Contac t Referred To Contact US IMAGING Diagnoses Pelvic pain in female Procedures US FEMALE PELVIS TRANSVAG US TRANSVAGINAL Alyssa Cano APRN.HOT DIP GALVANIZER [address] [place] [address] Us Imaging Referral ID Status Reason Start Date Expiration Date Visits Requested Visits Authorized [id number] Authorized Auto-Generat ed Referral 2 09/01/2023 [facility] Diagnostic Procedure Only (Routine) - Pending Review Specialty Diagnoses / Procedures Referred By Contac t Referred To Contact US IMAGING Diagnoses Ovarian cyst, left Procedures US FEMALE PELVIS TRANSVAG US TRANSVAGINAL Alyssa Cano APRN.HOT DIP GALVANIZER [address] [place] [address] Us Imaging Referral ID Status Reason Start Date Expiration Date Visits Requested Visits Authorized [id number] Pending Review Auto-Generat ed Referral 2 09/15/2023 [address] [facility] for referral (narrative)* Diagnostic Procedure Only (Routine) - Pending Review Specialty Diagnoses / Procedures Referred By Contac t Referred To Contact US IMAGING Diagnoses Complex cyst of left ovary Procedures US FEMALE PELVIS TRANSVAG US TRANSVAGINAL Alyssa Cano APRN.HOT DIP GALVANIZER [address] [place] [address] Us Imaging Referral ID Status Reason Start Date Expiration Date Visits Requested Visits Authorized [id number] Pending Review Auto-Generat ed Referral 10/01/2022 10/31/2023 [address] [facility] for referral (narrative)* Outpatient Procedure (Routine) - Pending Review Specialty Diagnoses / Procedures Referred By Contac t Referred To Contact [facility] Diagnoses SOB (shortness of breath) Procedures SPIROMETRY - BASELINE AND POST DILATOR BRNCDILAT RSPSE SPMTRY PRE&POST-BRNCDILAT ADMN Tootie Mujica APRN.CNP [address] [place] [address] Respiratory [place] [id number] Referral ID Status Reason Start Date Expiration Date Visits Requested Visits Authorized [id number] Pending Review Auto-Generat ed Referral 12/01/2022 12/31/2023 [address] [facility] for referral (narrative)* Diagnostic Procedure Only (Routine) - Pending Review Specialty Diagnoses / Procedures Referred By Contact Referred To Contact [facility] Diagnoses Daytime somnolence Procedures HOME SLEEP APNEA TEST (HSAT) SLEEP STD AIRFLOW HRT RATE&O2 SAT EFFORT UNATT Shaniqua Beckford MD [address] [place] [address] Neurological [place] [id number] Referral ID Status Reason Start Date Expiration Date Visits Requested Visits Authorized [id number] Pending Review Auto-Generat ed Referral 01/20/2023 01/20/2024 [address] [facility] for referral (narrative)* Diagnostic Procedure Only (Routine) - Pending Review Specialty Diagnoses / Procedures Referred By Contac t Referred To Contact US IMAGING Diagnoses Ulnar neuropathy at elbow of right upper extremity Procedures US ELBOW RIGHT US LMTD JOINT/OTH NONVASC XTR STRUX R-T W/IMG Jose Hicks MD [address] [place] [address] Us Imaging Referral ID Status Reason Start Date Expiration Date Visits Requested Visits Authorized [id number] Pending Review Auto-Generat ed Referral 01/27/2023 02/26/2024 1 1 * Diagnostic Procedure Only (Routine) - Pending Review Specialty Diagnoses / Procedures Referred By Vicente t Referred To Contact US IMAGING Diagnoses Carpal tunnel syndrome of right wrist Procedures US WRIST RIGHT US COMPL JOINT R-T W/IMAGE DOCUMENTATION Jose Hicks MD [address] [place] [address] Us Imaging Referral ID Status Reason Start Date Expiration Date Visits Requested Visits Authorized [id number] Pending Review Auto-Generat ed Referral 01/27/2023 02/26/2024 [address] [facility] for referral (narrative)* Diagnostic Procedure Only (Routine) - Closed Specialty Diagnoses / Procedures Referred By Vicente moran Referred To Contact US IMAGING Diagnoses Pelvic pain in female Procedures US FEMALE PELVIS TRANSVAG US TRANSVAGINAL Alyssa Cano APRN.CNP [address] [place] [address] [place] [address] Referral ID Status Reason Start Date Expiration Date V isits Requested Visits Authorized [id number] Closed Auto-Generate d Referral 08/02/2022 09/01/2023 [address] [facility] for referral (narrative)* Diagnostic Procedure Only (Routine) - Closed Specialty Diagnoses / Procedures Referred By Vicente t Referred To Contact US IMAGING Diagnoses Ovarian cyst, left Procedures US FEMALE PELVIS TRANSVAG US TRANSVAGINAL Alyssa Cano APRN.CNP [address] [place] [address] [place] [id number] Referral ID Status Reason Start Date Expiration Date V isits Requested Visits Authorized [id number] Closed Auto-Generate d Referral 08/16/2022 09/15/2023 1 1 [facility] for visit Narrative* Diagnostic Procedure Only (Urgent) - Closed Specialty Diagnoses / Procedures Referred By Jonatanac t Referred To Contact US IMAGING Diagnoses Epigastric pain Gastroesophageal reflux disease, unspecified whether esophagitis present Esophageal dysphagia Procedures US ABD RT UPPER QUADRANT US ABDOMINAL REAL TIME W/IMAGE LIMITED Shaniqua Beckford MD [address] [place] [address] Us Imaging Referral ID Status Reason Start Date Expiration Date V isits Requested Visits Authorized [id number] Closed Auto-Generate d Referral 12/08/2021 01/07/2023 1 1 [facility] Summary Purpose Family History No Family History Records FoundNo Family History Records FoundNo Family History Records FoundNo Family History Records FoundNo Family History Records Found Advance Directives No Advanced Directives Records FoundNo Advanced Directives Records FoundNo Advanced Directives Records FoundNo Advanced Directives Records FoundNo Advanced Directives Records Found Reason for Referral Specialty Diagnoses / Procedures Referred By Jonatanac t Referred To Contact CT IMAGING Diagnoses Epigastric pain Procedures CT ABD/PEL W IVCON CT ABD & PELVIS W/CONTRAST Shaniqua Beckford MD [address] [place] [address] Ct Imaging Referral ID Status Reason Start Date Expiration Date Visits Requested Visits Authorized [id number] Pending Review Auto-Genera betsey Referral Patient Cleared - Admin/Chair man/Directo r advise to proceed 12/09/2021 01/08/2023 1 1 Specialty Diagnoses / Procedures Referred By Jonatanac t Referred To Contact Podiatry Diagnoses Pain of left heel Procedures CONSULT TO PODIATRY OFFICE/OUTPATIENT [facility] MDM 60-74 MINUTES Lia Reyes APRN.CNP [address] [place] [address] Referral ID Status Reason Start Date Expiration Date Visits Requested Visits Authorized [id number] Authorized PCP Requested Referral 05/05/2022 05/05/2023 1 1 Specialty Diagnoses / Procedures Referred By Contac t Referred To Contact XR IMAGING Diagnoses Pain of left heel Procedures XR CALCANEUS 2V AXIAL/LAT LEFT RADEX CALCANEUS MINIMUM 2 VIEWS Lia Reyes APRN.HOT DIP GALVANIZER [address] [place] [address] Xr Imaging Referral ID Status Reason Start Date Expiration Date V isits Requested Visits Authorized [id number] Closed Auto-Generate d Referral 05/05/2022 06/04/2023 1 1 Specialty Diagnoses / Procedures Referred By Contac t Referred To Contact Orthopedics Diagnoses Abnormal x-ray Procedures CONSULT TO ORTHOPAEDICS OFFICE/OUTPATIENT [facility] 60-74 MINUTES Abe Calzada APRN.HOT DIP GALVANIZER [address] [place] [address] Referral ID Status Reason Start Date Expiration Date Visits Requested Visits Authorized [id number] Authorized PCP Requested Referral 06/07/2022 06/07/2023 1 1 Specialty Diagnoses / Procedures Referred By Contac t Referred To Contact XR IMAGING Diagnoses Wrist injuries, right, initial encounter Procedures XR WRIST GENERAL 3V PA/LAT/OBL RIGHT RADEX WRIST COMPLETE MINIMUM 3 VIEWS Abe Calzada APRN.HOT DIP GALVANIZER [address] [place] [address] Xr Imaging Referral ID Status Reason Start Date Expiration Date V isits Requested Visits Authorized [id number] Closed Auto-Generate d Referral 06/07/2022 07/07/2023 1 1 Specialty Diagnoses / Procedures Referred By Contac t Referred To Contact MR IMAGING Diagnoses Disorder of bone Procedures MRI WRIST WO IVCON RT MRI ANY JT UPPER EXTREMITY W/O CONTRAST Jose Dupree MD [address] [place] [address] Mr Imaging Referral ID Status Reason Start Date Expiration Date Visits Requested Visits Authorized [id number] Pending Review Auto-Generat ed Referral 08/14/2023 1 1 Specialty Diagnoses / Procedures Referred By Contac t Referred To Contact Diagnoses Family history of malignant neoplasm of breast Procedures CONSULT TO [facility] GENETIC COUNSELING MEDICAL GENETICS COUNSELING EACH 30 MINUTES Luis Tavarez MD [address] [place] [address] [address] Referral ID Status Reason Start Date Expiration Date Visits Requested Visits Authorized [id number] Authorized PCP Requested Referral Auto-Generate d Referral 10/13/2022 10/13/2023 1 1 Specialty Diagnoses / Procedures Referred By Contac t Referred To Contact [facility] Diagnoses Pelvic pain in female Levator spasm Procedures CONSULT TO PHYSICAL THERAPY PHYSICAL THERAPY EVALUATION HIGH COMPLEX 45 MINS Luis Tavarez MD [address] [place] [address] [facility] [address] [address] Referral ID Status Reason Start Date Expiration Date Visits Requested Visits Authorized [id number] Pending Review Auto-Generat ed Referral 10/13/2022 10/13/2023 1 1 Health Concerns Infection Onset Date Last Indicated Resolved Time COVID-19 Rule-Out 01/14/2022 01/14/2022 Infection Onset Date Last Indicated Resolved Time COVID-19 Rule-Out 01/14/2022 01/14/2022 01/15/2022 6:27 AM EDT Infection Onset Date Last Indicated Resolved Time COVID-19 Rule-Out 04/19/2022 04/19/2022 Infection Onset Date Last Indicated Resolved Time COVID-19 Rule-Out 04/19/2022 04/19/2022 04/20/2022 5:12 AM EDT Infection Onset Date Last Indicated Resolved Time COVID-19 Rule-Out 10/14/2022 10/14/2022 Infection Onset Date Last Indicated Resolved Time COVID-19 Rule-Out 10/14/2022 10/14/2022 10/15/2022 12:41 AM EST Infection Onset Date Last Indicated Resolved Time COVID-19 Rule-Out 08/22/2023 08/22/2023 Additional Source Comments INFORMATION SOURCE (unrecogn ized section and content) DATE CREATED AUTHOR AUTHOR'S ORGANIZ ATION 07/06/2018 [facility] ([place]) DATE CREATED AUTHOR AUTHOR'S ORGANIZ ATION 01/01/2019 [facility] DATE CREATED AUTHOR AUTHOR'S ORGANIZ ATION 01/09/2019 [facility] DATE CREATED AUTHOR AUTHOR'S ORGANIZ ATION 08/24/2023 [facility] Source Comments (unrecognize d section and content) In the event this informatio n is protected by the Federal Confidentiality of Alcohol and Drug Abuse Patient Records regulations: The Federal rules restrict any use of the information to criminally investigate or prosecute any alcohol or drug abuse patient.[facility] the event this information is protected by the Federal Confidentiality of Alcohol and Drug Abuse Patient Records regulations: The Federal rules restrict any use of the information to criminally investigate or prosecute any alcohol or drug abuse patient.[facility] HospitalIn the event this information is protected by the Federal Confidentiality of Alcohol and Drug Abuse Patient Records regulations: The Federal rules restrict any use of the information to criminally investigate or prosecute any alcohol or drug abuse patient.[facility] HospitalIn the event this information is protected by the Federal Confidentiality of Alcohol and Drug Abuse Patient Records regulations: The Federal rules restrict any use of the information to criminally investigate or prosecute any alcohol or drug abuse patient.[facility] HospitalIn the event this information is protected by the Federal Confidentiality of Alcohol and Drug Abuse Patient Records regulations: The Federal rules restrict any use of the information to criminally investigate or prosecute any alcohol or drug abuse patient.[facility] HospitalIn the event this information is protected by the Federal Confidentiality of Alcohol and Drug Abuse Patient Records regulations: The Federal rules restrict any use of the information to criminally investigate or prosecute any alcohol or drug abuse patient.[facility] HospitalIn the event this information is protected by the Federal Confidentiality of Alcohol and Drug Abuse Patient Records regulations: The Federal rules restrict any use of the information to criminally investigate or prosecute any alcohol or drug abuse patient.[facility] HospitalIn the event this information is protected by the Federal Confidentiality of Alcohol and Drug Abuse Patient Records regulations: The Federal rules restrict any use of the information to criminally investigate or prosecute any alcohol or drug abuse patient.[facility] HospitalIn the event this information is protected by the Federal Confidentiality of Alcohol and Drug Abuse Patient Records regulations: The Federal rules restrict any use of the information to criminally investigate or prosecute any alcohol or drug abuse patient.[facility] HospitalIn the event this information is protected by the Federal Confidentiality of Alcohol and Drug Abuse Patient Records regulations: The Federal rules restrict any use of the information to criminally investigate or prosecute any alcohol or drug abuse patient.[facility] HospitalIn the event this information is protected by the Federal Confidentiality of Alcohol and Drug Abuse Patient Records regulations: The Federal rules restrict any use of the information to criminally investigate or prosecute any alcohol or drug abuse patient.[facility] HospitalIn the event this information is protected by the Federal Confidentiality of Alcohol and Drug Abuse Patient Records regulations: The Federal rules restrict any use of the information to criminally investigate or prosecute any alcohol or drug abuse patient.[facility] HospitalIn the event this information is protected by the Federal Confidentiality of Alcohol and Drug Abuse Patient Records regulations: The Federal rules restrict any use of the information to criminally investigate or prosecute any alcohol or drug abuse patient.[facility] HospitalIn the event this information is protected by the Federal Confidentiality of Alcohol and Drug Abuse Patient Records regulations: The Federal rules restrict any use of the information to criminally investigate or prosecute any alcohol or drug abuse patient.[facility] HospitalIn the event this information is protected by the Federal Confidentiality of Alcohol and Drug Abuse Patient Records regulations: The Federal rules restrict any use of the information to criminally investigate or prosecute any alcohol or drug abuse patient.[facility] HospitalIn the event this information is protected by the Federal Confidentiality of Alcohol and Drug Abuse Patient Records regulations: The Federal rules restrict any use of the information to criminally investigate or prosecute any alcohol or drug abuse patient.[facility] HospitalIn the event this information is protected by the Federal Confidentiality of Alcohol and Drug Abuse Patient Records regulations: The Federal rules restrict any use of the information to criminally investigate or prosecute any alcohol or drug abuse patient.[facility] HospitalIn the event this information is protected by the Federal Confidentiality of Alcohol and Drug Abuse Patient Records regulations: The Federal rules restrict any use of the information to criminally investigate or prosecute any alcohol or drug abuse patient.[facility] HospitalIn the event this information is protected by the Federal Confidentiality of Alcohol and Drug Abuse Patient Records regulations: The Federal rules restrict any use of the information to criminally investigate or prosecute any alcohol or drug abuse patient.[facility] HospitalIn the event this information is protected by the Federal Confidentiality of Alcohol and Drug Abuse Patient Records regulations: The Federal rules restrict any use of the information to criminally investigate or prosecute any alcohol or drug abuse patient.[facility] HospitalIn the event this information is protected by the Federal Confidentiality of Alcohol and Drug Abuse Patient Records regulations: The Federal rules restrict any use of the information to criminally investigate or prosecute any alcohol or drug abuse patient.[facility] HospitalIn the event this information is protected by the Federal Confidentiality of Alcohol and Drug Abuse Patient Records regulations: The Federal rules restrict any use of the information to criminally investigate or prosecute any alcohol or drug abuse patient.[facility] HospitalIn the event this information is protected by the Federal Confidentiality of Alcohol and Drug Abuse Patient Records regulations: The Federal rules restrict any use of the information to criminally investigate or prosecute any alcohol or drug abuse patient.[facility] HospitalIn the event this information is protected by the Federal Confidentiality of Alcohol and Drug Abuse Patient Records regulations: The Federal rules restrict any use of the information to criminally investigate or prosecute any alcohol or drug abuse patient.[facility] HospitalIn the event this information is protected by the Federal Confidentiality of Alcohol and Drug Abuse Patient Records regulations: The Federal rules restrict any use of the information to criminally investigate or prosecute any alcohol or drug abuse patient.[facility] HospitalIn the event this information is protected by the Federal Confidentiality of Alcohol and Drug Abuse Patient Records regulations: The Federal rules restrict any use of the information to criminally investigate or prosecute any alcohol or drug abuse patient.[facility] HospitalIn the event this information is protected by the Federal Confidentiality of Alcohol and Drug Abuse Patient Records regulations: The Federal rules restrict any use of the information to criminally investigate or prosecute any alcohol or drug abuse patient.[facility] HospitalIn the event this information is protected by the Federal Confidentiality of Alcohol and Drug Abuse Patient Records regulations: The Federal rules restrict any use of the information to criminally investigate or prosecute any alcohol or drug abuse patient.[facility] HospitalIn the event this information is protected by the Federal Confidentiality of Alcohol and Drug Abuse Patient Records regulations: The Federal rules restrict any use of the information to criminally investigate or prosecute any alcohol or drug abuse patient.[facility] HospitalIn the event this information is protected by the Federal Confidentiality of Alcohol and Drug Abuse Patient Records regulations: The Federal rules restrict any use of the information to criminally investigate or prosecute any alcohol or drug abuse patient.[facility] HospitalIn the event this information is protected by the Federal Confidentiality of Alcohol and Drug Abuse Patient Records regulations: The Federal rules restrict any use of the information to criminally investigate or prosecute any alcohol or drug abuse patient.[facility] HospitalIn the event this information is protected by the Federal Confidentiality of Alcohol and Drug Abuse Patient Records regulations: The Federal rules restrict any use of the information to criminally investigate or prosecute any alcohol or drug abuse patient.[facility] HospitalIn the event this information is protected by the Federal Confidentiality of Alcohol and Drug Abuse Patient Records regulations: The Federal rules restrict any use of the information to criminally investigate or prosecute any alcohol or drug abuse patient.[facility] HospitalIn the event this information is protected by the Federal Confidentiality of Alcohol and Drug Abuse Patient Records regulations: The Federal rules restrict any use of the information to criminally investigate or prosecute any alcohol or drug abuse patient.[facility] HospitalIn the event this information is protected by the Federal Confidentiality of Alcohol and Drug Abuse Patient Records regulations: The Federal rules restrict any use of the information to criminally investigate or prosecute any alcohol or drug abuse patient.[facility] HospitalIn the event this information is protected by the Federal Confidentiality of Alcohol and Drug Abuse Patient Records regulations: The Federal rules restrict any use of the information to criminally investigate or prosecute any alcohol or drug abuse patient.[facility] HospitalIn the event this information is protected by the Federal Confidentiality of Alcohol and Drug Abuse Patient Records regulations: The Federal rules restrict any use of the information to criminally investigate or prosecute any alcohol or drug abuse patient.[facility] HospitalIn the event this information is protected by the Federal Confidentiality of Alcohol and Drug Abuse Patient Records regulations: The Federal rules restrict any use of the information to criminally investigate or prosecute any alcohol or drug abuse patient.[facility] HospitalIn the event this information is protected by the Federal Confidentiality of Alcohol and Drug Abuse Patient Records regulations: The Federal rules restrict any use of the information to criminally investigate or prosecute any alcohol or drug abuse patient.[facility] HospitalIn the event this information is protected by the Federal Confidentiality of Alcohol and Drug Abuse Patient Records regulations: The Federal rules restrict any use of the information to criminally investigate or prosecute any alcohol or drug abuse patient.[facility] HospitalIn the event this information is protected by the Federal Confidentiality of Alcohol and Drug Abuse Patient Records regulations: The Federal rules restrict any use of the information to criminally investigate or prosecute any alcohol or drug abuse patient.[facility] HospitalIn the event this information is protected by the Federal Confidentiality of Alcohol and Drug Abuse Patient Records regulations: The Federal rules restrict any use of the information to criminally investigate or prosecute any alcohol or drug abuse patient.[facility] HospitalIn the event this information is protected by the Federal Confidentiality of Alcohol and Drug Abuse Patient Records regulations: The Federal rules restrict any use of the information to criminally investigate or prosecute any alcohol or drug abuse patient.[facility] HospitalIn the event this information is protected by the Federal Confidentiality of Alcohol and Drug Abuse Patient Records regulations: The Federal rules restrict any use of the information to criminally investigate or prosecute any alcohol or drug abuse patient.[facility] HospitalIn the event this information is protected by the Federal Confidentiality of Alcohol and Drug Abuse Patient Records regulations: The Federal rules restrict any use of the information to criminally investigate or prosecute any alcohol or drug abuse patient.[facility] HospitalIn the event this information is protected by the Federal Confidentiality of Alcohol and Drug Abuse Patient Records regulations: The Federal rules restrict any use of the information to criminally investigate or prosecute any alcohol or drug abuse patient.[facility] HospitalIn the event this information is protected by the Federal Confidentiality of Alcohol and Drug Abuse Patient Records regulations: The Federal rules restrict any use of the information to criminally investigate or prosecute any alcohol or drug abuse patient.[facility] HospitalIn the event this information is protected by the Federal Confidentiality of Alcohol and Drug Abuse Patient Records regulations: The Federal rules restrict any use of the information to criminally investigate or prosecute any alcohol or drug abuse patient.[facility] HospitalIn the event this information is protected by the Federal Confidentiality of Alcohol and Drug Abuse Patient Records regulations: The Federal rules restrict any use of the information to criminally investigate or prosecute any alcohol or drug abuse patient.[facility] HospitalIn the event this information is protected by the Federal Confidentiality of Alcohol and Drug Abuse Patient Records regulations: The Federal rules restrict any use of the information to criminally investigate or prosecute any alcohol or drug abuse patient.[facility] HospitalIn the event this information is protected by the Federal Confidentiality of Alcohol and Drug Abuse Patient Records regulations: The Federal rules restrict any use of the information to criminally investigate or prosecute any alcohol or drug abuse patient.[facility] Hospital[facility] the event this information is protected by the Federal Confidentiality of Alcohol and Drug Abuse Patient Records regulations: The Federal rules restrict any use of the information to criminally investigate or prosecute any alcohol or drug abuse patient.[facility] HospitalIn the event this information is protected by the Federal Confidentiality of Alcohol and Drug Abuse Patient Records regulations: The Federal rules restrict any use of the information to criminally investigate or prosecute any alcohol or drug abuse patient.[facility] the event this information is protected by the Federal Confidentiality of Alcohol and Drug Abuse Patient Records regulations: The Federal rules restrict any use of the information to criminally investigate or prosecute any alcohol or drug abuse patient.[facility] HospitalIn the event this information is protected by the Federal Confidentiality of Alcohol and Drug Abuse Patient Records regulations: The Federal rules restrict any use of the information to criminally investigate or prosecute any alcohol or drug abuse patient.[facility] HospitalIn the event this information is protected by the Federal Confidentiality of Alcohol and Drug Abuse Patient Records regulations: The Federal rules restrict any use of the information to criminally investigate or prosecute any alcohol or drug abuse patient.[facility] Hospital[facility] the event this information is protected by the Federal Confidentiality of Alcohol and Drug Abuse Patient Records regulations: The Federal rules restrict any use of the information to criminally investigate or prosecute any alcohol or drug abuse patient.[facility] HospitalIn the event this information is protected by the Federal Confidentiality of Alcohol and Drug Abuse Patient Records regulations: The Federal rules restrict any use of the information to criminally investigate or prosecute any alcohol or drug abuse patient.[facility] Reason for Visit (unrecogniz ed section and content) Specialty Diagnoses / Procedures Referred By Contac t Referred To Contact US IMAGING Diagnoses Pelvic pain in female Procedures US FEMALE PELVIS TRANSVAG US TRANSVAGINAL Alyssa Cano, METALLURGICAL SPECIALIST.HOT DIP GALVANIZER [address] [place] [address] [place] [address] Referral ID Status Reason Start Date Expiration Date V isits Requested Visits Authorized [id number] Closed Auto-Generate d Referral 08/02/2022 09/01/2023 1 1 Reason Comments Heartburn indigestion, bloatin g and radiating pain Reason Comments Results Reason Comments Sore Throat pain rated 8, x1 day Eye Problem (RT) eye irritation, discharge denied change in visual field Reason Comments Cough ST, stuffy nose, april rrhea, SOB x this AM Reason Comments Abdominal Pain Reason Comments Results Reason Comments Rash along hair line and forehead x3 days Cough SOB, ST, chest conge stion x3 days Reason Comments Heel Pain left x 1 month Reason Comments Question Reason Comments New Patient Pain Specialty Diagnoses / Procedures Referred By Contac t Referred To Contact Podiatry Diagnoses Pain of left heel Procedures CONSULT TO PODIATRY OFFICE/OUTPATIENT NEW HIGH MDM 60-74 MINUTES Lia Reyes, METALLURGICAL SPECIALIST.HOT DIP GALVANIZER [address] [place] [address] Referral ID Status Reason Start Date Expiration Date V isits Requested Visits Authorized [id number] Closed PCP Requested Referral 05/05/2022 05/05/2023 1 1 Reason Comments Wrist/forearm Injury R wrist injury x to day Reason Comments Cough With SOB x6 days Diarrhea X6 days Reason Comments New Sclerotic lesion right wrist Referred by Abe Calzada Reason Comments Follow Up Go over lab work, wr ist pain(MRI scheduled for ), having muscle spasms in toes since having therapy to heal spurs Reason Comments Pain (RT) arm pain rated 10, x4 days, reported moving furniture. Reason Comments Well Woman Reason Comments Consult Bleeding hemorrhoid Specialty Diagnoses / Procedures Referred By Contac t Referred To Contact General Surgery Diagnoses Bleeding hemorrhoid Procedures CONSULT TO GENERAL SURGERY OFFICE/OUTPATIENT NEW HIGH MDM 60-74 MINUTES PodlogarTootie APRN.HOT DIP GALVANIZER [address] [place] [address] Referral ID Status Reason Start Date Expiration Date V isits Requested Visits Authorized [id number] Closed PCP Requested Referral 08/04/2022 08/04/2023 1 1 Reason Comments Sore Throat Diarrhea, cough x 6 days Reason Onset Date Comments Refill Request 09/20/2022 Reason Comments Discussion Reason Comments Cough Diarrhea Chest congestion, x3 days. Reason Comments letter request Reason Comments Pain Pt reported upper (L T) tooth pain , rated 10, x4 days. Reason Comments Diarrhea On Amox for strep th roat Reason Comments Multiple Concerns Patient concerned wi th being sick frequently and has been sick for the last 2 months. Including pneumonia. Sleeping often. Falling asleep and not remembering. Low appetite and not eating properly, low fluid intake. Increased fatigue. Reason Comments Patient Update Reason Comments right hand pain Dropped coffee pot t his am and burnt hand Reason Comments Results Wrist MRI Reason Onset Date Comments Refill Request 02/28/2023 Reason Comments Established Patient Pain Reason Comments Appointment Reason Onset Date Comments Refill Request 05/22/2023 Specialty Diagnoses / Procedures Referred By Contac t Referred To Contact US IMAGING Diagnoses Ovarian cyst, left Procedures US FEMALE PELVIS TRANSVAG US TRANSVAGINAL Alyssa Cano APRN.HOT DIP GALVANIZER [address] [place] [address] [place] [address] Referral ID Status Reason Start Date Expiration Date V isits Requested Visits Authorized [id number] Closed Auto-Generate d Referral 08/16/2022 09/15/2023 1 1 Specialty Diagnoses / Procedures Referred By Contac t Referred To Contact MR IMAGING Diagnoses Disorder of bone Procedures MRI WRIST WO IVCON RT MRI ANY JT UPPER EXTREMITY W/O CONTRAST MATRL Jose Hicks MD [address] [place] [address] [place] [address] Referral ID Status Reason Start Date Expiration Date V isits Requested Visits Authorized [id number] Closed Auto-Generate d Referral 07/27/2022 10/25/2022 1 1 Reason Comments outside Imaging Reason Comments Nausea diarrhea x 1 day Care Teams (unrecognized sec tion and content) Fisher Quahog Relationship Specialty Start Date End Date Shaniqua Beckford MD [address] [place] [address] PCP - General Family Practice 01/28/21 Fisher Quahog Relationship Specialty Start Date End Date Shaniqua Beckford MD [address] [place] [address] PCP - General Family Practice 01/28/21 Fisher Quahog Relationship Specialty Start Date End Date Shaniqua Beckford MD [address] [place] [address] PCP - General Family Practice 01/28/21 Fisher Quahog Relationship Specialty Start Date End Date Shaniqua Beckford MD [address] [place] [address] PCP - General Family Practice 01/28/21 Fisher Quahog Relationship Specialty Start Date End Date Shaniqua Beckford MD [address] [place] [address] PCP - General Family Practice 01/28/21 Fisher Quahog Relationship Specialty Start Date End Date Shaniqua Beckford MD [address] [place] [address] PCP - General Family Practice 01/28/21 Fisher Quahog Relationship Specialty Start Date End Date Shaniqua Beckford MD [address] [place] [address] PCP - General Family Practice 01/28/21 Fisher Quahog Relationship Specialty Start Date End Date Shaniqua Beckford MD [address] [facility] [place] [address] PCP - General Family Practice 01/28/21 Fisher Quahog Relationship Specialty Start Date End Date Shaniqua Beckford MD [address] [facility] [address] PCP - General Family Practice 01/28/21 Fisher Quahog Relationship Specialty Start Date End Date Shaniqua Beckford MD [address] [place] [address], [place] [address] PCP - General Family Practice 01/28/21 Fisher Quahog Relationship Specialty Start Date End Date Shaniqua Beckford MD [facility] [place] [address] PCP - General Family Practice 01/28/21 Fisher Quahog Relationship Specialty Start Date End Date Shaniqua Beckford MD [address] [facility] [address] PCP - General Family Medicine 01/28/21 Fisher Quahog Relationship Specialty Start Date End Date Shaniqua Beckford MD [address] [facility] [place] [address] PCP - General Family Medicine 01/28/21 Fisher Quahog Relationship Specialty Start Date End Date Shaniqua Beckford MD [address] [facility] [address] PCP - General Family Medicine 01/28/21 Fisher Quahog Relationship Specialty Start Date End Date Shaniqua Beckford MD [address] [facility] [address] PCP - General Family Medicine 01/28/21 Fisher Quahog Relationship Specialty Start Date End Date Shaniqua Beckford MD [address] [facility] [address] PCP - General Family Medicine 01/28/21 Fisher Quahog Relationship Specialty Start Date End Date Shaniqua Beckford MD [address] [facility] [address] PCP - General Family Medicine 01/28/21 Fisher Quahog Relationship Specialty Start Date End Date Shaniqua Beckford MD [address] [facility] [address] PCP - General Family Medicine 01/28/21 Fisher Quahog Relationship Specialty Start Date End Date Shaniqua Beckford MD [address] [facility] [address] PCP - General Family Medicine 01/28/21 Fisher Quahog Relationship Specialty Start Date End Date Shaniqua Beckford MD [address] [facility] [address] PCP - General Family Medicine 01/28/21 Fisher Quahog Relationship Specialty Start Date End Date Shaniqua Beckford MD [address] [facility] [address] PCP - General Family Medicine 01/28/21 Fisher Quahog Relationship Specialty Start Date End Date Shaniqua Beckford MD [address] [facility] [address] PCP - General Family Medicine 01/28/21 Fisher Quahog Relationship Specialty Start Date End Date Shaniqua Beckford MD [address] [facility] [address] PCP - General Family Medicine 01/28/21 Fisher Quahog Relationship Specialty Start Date End Date Shaniqua Beckford MD [address] [facility] [address] PCP - General Family Medicine 01/28/21 Fisher Quahog Relationship Specialty Start Date End Date Shaniqua Beckford MD [address] [facility] [address] PCP - General Family Medicine 01/28/21 Fisher Quahog Relationship Specialty Start Date End Date Shaniqua Beckford MD [address] [facility] [address] PCP - General Family Medicine 01/28/21 Fisher Quahog Relationship Specialty Start Date End Date Shaniqua Beckford MD [address] [place] [address] PCP - General Family Medicine 01/28/21 Fisher Quahog Relationship Specialty Start Date End Date Shaniqua Beckford MD [address] [place] [address] PCP - General Family Medicine 01/28/21 Fisher Quahog Relationship Specialty Start Date End Date Shaniqua Beckford MD [address] [place] [address] PCP - General Family Medicine 01/28/21 Fisher Quahog Relationship Specialty Start Date End Date Shaniqua Beckford MD [address] [place] [address] PCP - General Family Medicine 01/28/21 Fisher Quahog Relationship Specialty Start Date End Date Shaniqua Beckford MD [address] [facility] [address] PCP - General Family Medicine 01/28/21 Fisher Quahog Relationship Specialty Start Date End Date Shaniqua Beckford MD [address] [facility] [address] PCP - General Family Medicine 01/28/21 Fisher Quahog Relationship Specialty Start Date End Date Shaniqua Beckford MD [address] [facility] [address] PCP - General Family Medicine 01/28/21 Fisher Quahog Relationship Specialty Start Date End Date Shaniqua Beckford MD [address] [facility] [address] PCP - General [facility] [place] 01/28/21 Fisher Quahog Relationship Specialty Start Date End Date Shaniqua Beckford MD [address] [place] [address] PCP - General [facility] [place] 01/28/21 Fisher Quahog Relationship Specialty Start Date End Date Shaniqua Beckford MD [address] [facility] [address] PCP - General [facility] Medicine 01/28/21 Fisher Quahog Relationship Specialty Start Date End Date Shaniqua Beckford MD [address] [facility] [address] PCP - General Family Medicine 01/28/21 FOR RECORDS PERTAINING TO PATIENTS WHO ARE OR HAVE BEEN ENROLLED IN A CHEMICAL DEPENDENCY/SUBSTANCEABUSE PROGRAM, SOME INFORMATION MAY BE OMITTED. This clinical summary was aggregated from multiple sources. Caution should be exercised in using it in the provision of clinical care. This summary normalizes information from multiple sources, and as a consequence, information in this document may materially change the coding, format and clinical context of patient data. In addition, data may be omitted in some cases. CLINICAL DECISIONS SHOULD BE BASED ON THE PRIMARY CLINICAL RECORDS. [facility]. provides no warranty or guarantee of the accuracy or completeness of information in this document.
[2023-10-03] MEDS: Ketorolac 30 MG/ML Syringe IV (21:28)
[2023-10-03] MEDS: 0.9% Normal Saline (1000mL) 1,000 ML 1000 ML IV (21:32)
--- NOTE | 2023-10-03 21:34 | RAD_ITS ---
EXAM: XR CHEST, 1 VIEW CLINICAL INDICATION: cough TECHNIQUE: Frontal view of the chest. COMPARISON: 06/01/2023 FINDINGS: LUNGS AND PLEURAL SPACES: No significant abnormality. No consolidation or edema. No pneumothorax. No effusion. HEART: No significant abnormality. Cardiac silhouette not enlarged. MEDIASTINUM: Central airways and mediastinal contour are unremarkable. BONES/JOINTS: No significant abnormality. No acute fracture. SOFT TISSUES: No significant abnormality. RAD/Chest 1 View (Portable) IMPRESSION: No radiographic evidence of acute cardiopulmonary disease. Electronically Signed: Hi Roach DO at 21:48 EST ,
[2023-10-03] MEDS: Ipratropium/Albuterol Sulfate 3 ML AMPUL.NEB INHALATION (21:37)
[2023-10-03 21:40] VITALS: PULSE 110; RESP 18
--- NOTE | 2023-10-03 21:41 | EDS_ITS ---
HPI History of Present Illness Chief Complaint: Headache Informant: patient Narrative Narrative: 38-year-old female presenting to the emergency room with cough and headache. Patient states that 3 days ago she fell ill. Generalized body aches cough congestion sore throat some vomiting comes anteriorly Fever and now a occipital headache that. No significant photophobia no rashes. She states that influenza A has been going around her work. She notes that she is a smoker but does not have a history of COPD or asthma. She has an inhaler at home which she states is several years old. [facility] Medical History Kidney disease Kidney stones Pneumonia Smoker Wheezes Home Medications omeprazole 40 mg capsule,delayed release 40 mg PO DAILY 12/09/21 [History Last Taken Unknown] azelastine 137 mcg (0.1 %) nasal spray aerosol 2 spray intranasal BID #30 mL 10/23/22 [Rx Last Taken Unknown] doxycycline monohydrate 100 mg capsule 100 mg PO BID #20 CAPSULES 10/23/22 [Rx Last Taken Unknown] promethazine 6.25 mg-codeine 10 mg/5 mL syrup 5 ml PO 4X/DAY PRN PRN cough 7 days #140 mL 10/23/22 [Rx Last Taken Unknown] albuterol sulfate 90 mcg/actuation aerosol inhaler (Ventolin HFA) 1 - 2 puff inhalation Q4H PRN PRN Wheezing #1 device 04/04/23 [Rx Last Taken Unknown] albuterol sulfate 90 mcg/actuation aerosol inhaler (Ventolin HFA) 1 - 2 puff inhalation Q4H PRN PRN Wheezing #8.5 grams 06/01/23 [Rx Last Taken Unknown] prednisone 50 mg tablet 50 mg PO DAILY #5 tabs 06/01/23 [Rx Last Taken Unknown] oxycodone-acetaminophen 5 mg-325 mg tablet (Percocet) 1 tab PO Q8H PRN pain 3 days #10 tabs 08/06/23 [Rx Last Taken Unknown] Allergy/AdvReac Type Severity Reaction Status Date / Time hydrocodone bitartrate Allergy Hives Verified 10/03/23 18:42 [From [place]] Family History Other Heart disease Surgical History History of hysterectomy Social History household members: none Smoking Status: Current every day smoker tobacco type: cigarettes alcohol intake: current alcohol intake frequency: other substance use type: does not use ROS ROS ED Constitutional Constitutional ED: Reports chills; Denies fever(s) or weight loss Eyes Eyes: Denies change in vision or diplopia ENT ENT ED: Reports rhinorrhea and sore throat; Denies ear pain Cardiovascular Cardiovascular: Denies chest pain, orthopnea, palpitations or racing heartbeat Respiratory/Chest Respiratory/Chest: Reports cough, dyspnea and dyspnea on exertion; Denies orthopnea Gastrointestinal Gastrointestinal: Reports nausea and vomiting; Denies abdominal pain or diarrhea Genitourinary Genitourinary ED: Denies dysuria, hematuria or urinary frequency Musculoskeletal Musculoskeletal: Reports neck pain; Denies arthralgias, back pain or myalgias Integumentary Denies abscess or rash Neurologic Neurologic: Reports headache(s); Denies weakness Psychiatric Psychiatric: Denies anxiety, depression, suicidal ideation or suicidal thoughts Endocrine Endocrinology: Denies polydipsia, polyphagia or polyuria Allergic/Immunologic Allergic/Immunologic ED: Denies mouth swelling, tongue swelling or urticaria EXAM Physical Exam Const Vital Signs: 10/03/23 18:42 10/03/23 20:53 10/03/23 21:40 Temperature 97.5 F L Temperature Source Oral Pulse Rate 107 H 110 H Respiratory Rate 18 18 Respiratory Effort Normal Respiratory Pattern Normal Blood Pressure 122/78 H Blood Pressure Mean 92 Pulse Ox 93 Oxygen Delivery Method Room Air Positive well nourished and well developed General Appearance ED: well developed HEENT Reports normocephalic, head/scalp atraumatic and moist mucous membranes HEENT Narrative: Nasal congestion Eyes PERRL and EOMs intact bilaterally Neck no lymphadenopathy, supple and no JVD Neck Narrative: No meningeal signs Resp normal respiratory effort Auscultation: wheezes expiratory wheezes and inspiratory wheezes Cardio regular rate and no murmurs Rate: tachycardic GI normal to inspection, nondistended, normoactive bowel sounds and non-tender Palpation: soft Back/Spine no CVA tenderness and normal ROM Extremity normal to inspection General Extremety ED: Negative for edema General Extremity: Negative for edema Neuro oriented x3 and CN's II-XII intact bilaterally Sensorium / Orientation: alert Motor Exam: strength 5/5 throughout Psych mental status grossly normal Mood & Affect: Negative for depressed or tearful Skin no rashes or lesions noted and no wounds MDM MDM MDM Narrative Medical decision making narrative: Patient received a liter of IV fluids and Toradol. She also received a DuoNeb breathing treatment. My independent interpretation of the chest x-ray is no acute process. Discharge Plan Triage Chief Complaint: Headache Other Complaint: Other, Pain/Inj ED Provider: Russel Reynolds Dx/Rx/DC Orders Prescriptions: No Action omeprazole 40 mg capsule,delayed release(DR/EC) 40 mg PO DAILY doxycycline monohydrate 100 mg capsule 100 mg PO BID Qty: 20 0RF azelastine 137 mcg (0.1 %) aerosol,spray 2 spray intranasal BID Qty: 30 0RF Rx Instructions: administer into each nostril promethazine-codeine 6.25-10 mg/5 mL syrup 5 ml PO 4X/DAY PRN PRN (Reason: cough) 7 Days Qty: 140 0RF albuterol sulfate [Ventolin HFA] 90 mcg/actuation HFA aerosol inhaler 1 - 2 puff inhalation Q4H PRN PRN (Reason: Wheezing) Qty: 1 0RF prednisone 50 mg tablet 50 mg PO DAILY Qty: 5 0RF albuterol sulfate [Ventolin HFA] 90 mcg/actuation HFA aerosol inhaler 1 - 2 puff inhalation Q4H PRN PRN (Reason: Wheezing) Qty: 8.5 0RF oxycodone-acetaminophen [Percocet] 5-325 mg tablet 1 tab PO Q8H PRN (Reason: pain) 3 Days Qty: 10 0RF Primary Care Provider: Ian Mon Referrals: Ian Mon MD [Primary Care Provider] - Capacity Legal Airport Control Operator Reflex Medical hold order details:: IF a medical hold is selected below, a suggested order for a MEDICAL HOLD will reflex upon signing the document. Next of kin: [place] law dictates a PRIORITY LIST for identifying legal decision-maker/legal next of kin in the following order (LNOK): 1st: The patient?s legal guardian, if any 2nd: The patient's spouse (if status is questionable, consult Risk Management) 3rd: The patient?s adult child(anne) (majority, if multiple children) 4th: The patient?s parents 5th: The patient?s adult siblings (majority, if multiple children siblings)
[2023-10-03 22:51] VITALS: PULSE 83; RESP 16; O2SAT 98
[2023-10-03] MEDS: predniSONE 20 MG Tablet 60 MG PO (22:52)
== END 2023-10-03 22:55 | disposition home or self-care (01) ==
PROVIDERS: Emergency Provider Emergency Medicine; PCP Family Medicine; Visit Provider Emergency Medicine
DX: R51.9 Headache, unspecified (principal); Z90.710 Acquired absence of both cervix and uterus; F17.210 Nicotine dependence, cigarettes, uncomplicated; R05.9 Cough, unspecified; R50.9 Fever, unspecified
CPT/HCPCS: 71045; 87631; 94640; 96361; 96374; 99284; J7030; A4216

== ENCOUNTER 2023-10-10 14:16 | Emergency (ER) | payer MEDICAID, SELFPAY ==
[2023-10-10 14:17] VITALS: BP 123/63; PULSE 103; RESP 16; TEMP 36.6; O2SAT 100; BMI 37.0
--- NOTE | 2023-10-10 15:04 | EX.ED.UPPERE ---
HPI History of Present Illness Chief Complaint: Upper Extremity Injury Informant: patient Narrative Narrative: Patient states 4 days ago she used her teeth to pull a hangnail off of her finger. Later that day she started having soreness there, and it looked like a small green bubble at her fingertip. She has been using peroxide on it every day since then. She went to urgent care for this today, they did an x-ray and she states it was reported to her that there was some air there and she was referred here to the ER because of the potential for gangrene. She has focal pain at this area only and she denies any systemic symptoms. There has been no discharge or bleeding. [facility] Medical History Kidney disease Kidney stones Pneumonia Smoker Wheezes Home Medications omeprazole 40 mg capsule,delayed release 40 mg PO DAILY 12/09/21 [History Last Taken Unknown] azelastine 137 mcg (0.1 %) nasal spray aerosol 2 spray intranasal BID #30 mL 10/23/22 [Rx Last Taken Unknown] doxycycline monohydrate 100 mg capsule 100 mg PO BID #20 CAPSULES 10/23/22 [Rx Last Taken Unknown] promethazine 6.25 mg-codeine 10 mg/5 mL syrup 5 ml PO 4X/DAY PRN PRN cough 7 days #140 mL 10/23/22 [Rx Last Taken Unknown] albuterol sulfate 90 mcg/actuation aerosol inhaler (Ventolin HFA) 1 - 2 puff inhalation Q4H PRN PRN Wheezing #1 device 04/04/23 [Rx Last Taken Unknown] albuterol sulfate 90 mcg/actuation aerosol inhaler (Ventolin HFA) 1 - 2 puff inhalation Q4H PRN PRN Wheezing #8.5 grams 06/01/23 [Rx Last Taken Unknown] prednisone 50 mg tablet 50 mg PO DAILY #5 tabs 06/01/23 [Rx Last Taken Unknown] oxycodone-acetaminophen 5 mg-325 mg tablet (Percocet) 1 tab PO Q8H PRN pain 3 days #10 tabs 08/06/23 [Rx Last Taken Unknown] albuterol sulfate 90 mcg/actuation aerosol inhaler (Ventolin HFA) 2 puff inhalation Q4H PRN PRN Wheezing ##1 10/03/23 [Rx Last Taken Unknown] prednisone 20 mg tablet 60 mg (3 x 20 mg) PO DAILY #12 TABLETS 10/03/23 [Rx Last Taken Unknown] cephalexin 500 mg capsule 500 mg PO TID #21 CAPSULES 10/10/23 [Rx Last Taken Unknown] Allergy/AdvReac Type Severity Reaction Status Date / Time hydrocodone bitartrate Allergy Hives Verified 10/10/23 14:19 [From [place]] Family History Other Heart disease Surgical History History of hysterectomy Social History household members: none Smoking Status: Current every day smoker tobacco type: cigarettes alcohol intake: current alcohol intake frequency: other substance use type: does not use ROS ROS ED Constitutional Constitutional ED: Denies chills or fever(s) Musculoskeletal Musculoskeletal: Reports extremity pain; Denies neck pain Integumentary Reports wounds; Denies Abrasions or rash Neurologic Neurologic: Denies paresthesias or weakness EXAM Physical Exam Const Vital Signs: 10/10/23 14:17 Temperature 97.8 F Temperature Source Temporal Pulse Rate 103 H Respiratory Rate 16 Blood Pressure 123/63 H Blood Pressure Mean 83 Pulse Ox 100 Oxygen Delivery Method Room Air Positive well nourished and well developed General Appearance ED: well developed and NAD Neck full ROM and supple Back/Spine normal ROM and normal to inspection Extremity full ROM Extremity Narrative: Right ring finger: Patient has a subcentimeter small area at the fingertip ulnar aspect but not involving the paronychia that appears to be a blood blister. It is ecchymotic, it is tender. There is no surrounding cellulitis, swelling of the digit, lymphangitis, or limited range of motion. The nail is normal. Neuro oriented x3, no focal motor deficits and no sensory deficits noted Sensorium / Orientation: alert Psych mental status grossly normal and thought process normal Skin no wounds Rashes: no rashes MDM MDM MDM Narrative Medical decision making narrative: I reassured patient that she does not have gangrene. There is no crepitance here and there is no extension and it is very small and localized to where she had been biting her nail. Because she was biting her nail, I am considering the possibility of a localized infection and placing her on cephalexin. I offered to perform a simple I&D of the area with a needle, she was amenable, see the procedure note, there was no discharge. Reassured, I placed a bandage with bacitracin, and we discussed follow-up and reasons to return. Procedures Other Procedures Procedure(s): Simple incision and drainage right ring finger blister: Concerning the possibility of infection, this procedure was performed after the patient consented after discussing pros and cons. It was wiped with isopropanol and then prepped with Betadine swab, the roof of the lesion was entered from the side with a 21-gauge needle, there was no discharge even with expressing. Dressed with bacitracin no complications tolerated well. Discharge Plan Triage Chief Complaint: Upper Extremity Injury ED Provider: Jose Peters Dx/Rx/DC Orders Clinical Impression: Finger, blister, infected Instructions: ED Blister (Adult) Prescriptions: New cephalexin [cephalexin] 500 mg capsule 500 mg PO TID Qty: 21 0RF No Action omeprazole 40 mg capsule,delayed release(DR/EC) 40 mg PO DAILY doxycycline monohydrate 100 mg capsule 100 mg PO BID Qty: 20 0RF azelastine 137 mcg (0.1 %) aerosol,spray 2 spray intranasal BID Qty: 30 0RF Rx Instructions: administer into each nostril promethazine-codeine 6.25-10 mg/5 mL syrup 5 ml PO 4X/DAY PRN PRN (Reason: cough) 7 Days Qty: 140 0RF albuterol sulfate [Ventolin HFA] 90 mcg/actuation HFA aerosol inhaler 1 - 2 puff inhalation Q4H PRN PRN (Reason: Wheezing) Qty: 1 0RF prednisone 20 mg tablet 60 mg PO DAILY Qty: 12 0RF albuterol sulfate [Ventolin HFA] 90 mcg/actuation HFA aerosol inhaler 2 puff inhalation Q4H PRN PRN (Reason: Wheezing) Qty: 1 0RF prednisone 50 mg tablet 50 mg PO DAILY Qty: 5 0RF albuterol sulfate [Ventolin HFA] 90 mcg/actuation HFA aerosol inhaler 1 - 2 puff inhalation Q4H PRN PRN (Reason: Wheezing) Qty: 8.5 0RF oxycodone-acetaminophen [Percocet] 5-325 mg tablet 1 tab PO Q8H PRN (Reason: pain) 3 Days Qty: 10 0RF Primary Care Provider: Ian Mon Referrals: Ian Mon MD [Primary Care Provider] - 1 Week if not improving Disposition Disposition: Home, Self Care
--- OUTSIDE RECORDS SUMMARY | 2023-10-10 15:21 | XMS RPT_ITS | CCD ---
Author Name Unknown Address [address] [place] [address] Organization [facility] Care Team Providers Care 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 Name Role Phone MARISOL JAMES Unavailable Unavailable [...] [HYDROCODONE-ACETA MINOPHEN] Drug Allergy 7 Hives, Swelling [facility] Medications Current Medications Medication Drug Class(es) [...] Drug Class(es) Dates Sig (Normalized) Sig (Original) [id number] 200 actuat albuterol 0.09 mg/actuat metered dose [...] 97.7 [degF] Guillermina Peña APRN.CNP Work Phone: [facility] 08-22-2023 17:54-0500 Body weight 78.02 kg Guillermina Peña APRN.CNP Work Phone: [facility] 08-22-2023 17:54-0500 Diastolic blood pressure 72 mm[Hg] Guillermina Peña APRN.CNP Work Phone: [facility] 08-22-2023 17:54-0500 Heart rate 92 /min Guillermina Peña APRN.CONTRACT ASSISTANT Work Phone: [facility] 08-22-2023 17:54-0500 Respiratory rate 16 /min Guillermina Peña APRN.CONTRACT ASSISTANT Work Phone: [facility] 08-22-2023 17:54-0500 SaO2% (BldA) [Mass fraction] 98 % Guillermina Peña APRN.CONTRACT ASSISTANT Work Phone: [facility] 08-22-2023 17:54-0500 Systolic blood pressure 118 mm[Hg] Guillermina Peña APRN.CONTRACT ASSISTANT Work Phone: [facility] 01-27-2023 11:34-0400 Body temperature 98.4 [degF] Dakota Paz MD Work Phone: [facility] 01-27-2023 11:34-0400 Body weight 78.2 kg Dakota Paz MD Work Phone: [facility] 01-27-2023 11:34-0400 Diastolic blood pressure 74 mm[Hg] Dakota Paz MD Work Phone: [facility] 01-27-2023 11:34-0400 Heart rate 93 /min Dakota Paz MD Work Phone: [facility] 01-27-2023 11:34-0400 Respiratory rate 18 /min Dakota Paz MD Work Phone: [facility] 01-27-2023 11:34-0400 SaO2% (BldA) [Mass fraction] 97 % Dakota Paz MD Work Phone: [facility] 01-27-2023 11:34-0400 Systolic blood pressure 110 mm[Hg] Dakota Paz MD Work Phone: [facility] 12-01-2022 18:40-0400 Body temperature 98.01 [degF] Tootie Mujica APRN.CONTRACT ASSISTANT Work Phone: [facility] 03-15-2023 18:40-0400 Body weight 75.3 kg Tootie Podlogar PREVENTIVE MEDICINE SPECIALIST.CONTRACT ASSISTANT Work Phone: [facility] 12-01-2022 18:40-0400 Diastolic blood pressure 78 mm[Hg] Tootie Podlogar PREVENTIVE MEDICINE SPECIALIST.CONTRACT ASSISTANT Work Phone: [facility] 12-01-2022 18:40-0400 Heart rate 87 /min Tootie Podlogar PREVENTIVE MEDICINE SPECIALIST.CONTRACT ASSISTANT Work Phone: [facility] 12-01-2022 18:40-0400 Respiratory rate 18 /min Tootie Podlogar PREVENTIVE MEDICINE SPECIALIST.CONTRACT ASSISTANT Work Phone: [facility] 12-01-2022 18:40-0400 SaO2% (BldA) [Mass fraction] 100 % Tootie Podlogar PREVENTIVE MEDICINE SPECIALIST.CONTRACT ASSISTANT Work Phone: [facility] 12-01-2022 18:40-0400 Systolic blood pressure 112 mm[Hg] Tootie Podlogar PREVENTIVE MEDICINE SPECIALIST.CONTRACT ASSISTANT Work Phone: [facility] 11-15-2022 14:56-0500 Body temperature 97.81 [degF] NA Medeiros PA-C Work Phone: [facility] 11-15-2022 14:56-0500 Body weight 73.94 kg NA Medeiros PA-C Work Phone: [facility] 11-15-2022 14:56-0500 Diastolic blood pressure 62 mm[Hg] NA Medeiros PA-C Work Phone: [facility] 11-15-2022 14:56-0500 Heart rate 86 /min NA Medeiros PA-C Work Phone: [facility] 11-15-2022 14:56-0500 SaO2% (BldA) [Mass fraction] 97 % NA Medeiros PA-C Work Phone: [facility] 11-15-2022 14:56-0500 Systolic blood pressure 110 mm[Hg] NA Medeiros PA-C Work Phone: [facility] 11-14-2022 14:30-0500 Body temperature 98.2 [degF] Abe Zheng PREVENTIVE MEDICINE SPECIALIST.CONTRACT ASSISTANT Work Phone: [facility] 11-14-2022 14:30-0500 Body weight 74.3 kg Abe Calzada PREVENTIVE MEDICINE SPECIALIST.CONTRACT ASSISTANT Work Phone: [facility] 11-14-2022 14:30-0500 Diastolic blood pressure 68 mm[Hg] Abe Zheng PREVENTIVE MEDICINE SPECIALIST.CONTRACT ASSISTANT Work Phone: [facility] 11-14-2022 14:30-0500 Heart rate 100 /min Abe Zheng PREVENTIVE MEDICINE SPECIALIST.CONTRACT ASSISTANT Work Phone: [facility] 11-14-2022 14:30-0500 Respiratory rate 18 /min Abe Zheng PREVENTIVE MEDICINE SPECIALIST.CONTRACT ASSISTANT Work Phone: [facility] 11-14-2022 14:30-0500 SaO2% (BldA) [Mass fraction] 97 % Abe Zheng PREVENTIVE MEDICINE SPECIALIST.CONTRACT ASSISTANT Work Phone: [facility] 11-14-2022 14:30-0500 Systolic blood pressure 116 mm[Hg] Abe Zheng PREVENTIVE MEDICINE SPECIALIST.CONTRACT ASSISTANT Work Phone: [facility] 10-14-2022 11:42-0500 Body temperature 98.71 [degF] Martine Athy PA-C Work Phone: [facility] 10-14-2022 11:42-0500 Body weight 76.02 kg Martine Athy PA-C Work Phone: [facility] 10-14-2022 11:42-0500 Diastolic blood pressure 70 mm[Hg] Martine Athy PA-C Work Phone: [facility] 10-14-2022 11:42-0500 Heart rate 95 /min Martine Athy PA-C Work Phone: [facility] 10-14-2022 11:42-0500 Respiratory rate 18 /min Martine Athy PA-C Work Phone: [facility] 10-14-2022 11:42-0500 SaO2% (BldA) [Mass fraction] 97 % Martine Athy PA-C Work Phone: [facility] 10-14-2022 11:42-0500 Systolic blood pressure 120 mm[Hg] Martine Munroe PA-C Work Phone: [facility] 10-13-2022 13:53-0500 Body weight 76.2 kg Luis Tavarez MD Work Phone: [facility] 10-13-2022 13:53-0500 Diastolic blood pressure 62 mm[Hg] Luis Tavarez MD Work Phone: [facility] 10-13-2022 13:53-0500 Systolic blood pressure 110 mm[Hg] Luis Tavarez MD Work Phone: [facility] 08-20-2022 10:24-0500 Body temperature 97.39 [degF] Abe Calzada PREVENTIVE MEDICINE SPECIALIST.CONTRACT ASSISTANT Work Phone: [facility] 08-20-2022 10:24-0500 Body weight 75.39 kg Abe Calzada PREVENTIVE MEDICINE SPECIALIST.CONTRACT ASSISTANT Work Phone: [facility] 08-20-2022 10:24-0500 Diastolic blood pressure 66 mm[Hg] Abe Zheng PREVENTIVE MEDICINE SPECIALIST.CONTRACT ASSISTANT Work Phone: [facility] 08-20-2022 10:24-0500 Heart rate 75 /min Abe Zheng PREVENTIVE MEDICINE SPECIALIST.CONTRACT ASSISTANT Work Phone: [facility] 08-20-2022 10:24-0500 Respiratory rate 21 /min Abe Zheng PREVENTIVE MEDICINE SPECIALIST.CONTRACT ASSISTANT Work Phone: [facility] 08-20-2022 10:24-0500 SaO2% (BldA) [Mass fraction] 98 % Abe Zheng PREVENTIVE MEDICINE SPECIALIST.CONTRACT ASSISTANT Work Phone: [facility] 08-20-2022 10:24-0500 Systolic blood pressure 110 mm[Hg] Abe Zheng PREVENTIVE MEDICINE SPECIALIST.CONTRACT ASSISTANT Work Phone: [facility] 08-11-2022 14:14-0500 Body height 149.9 cm Vivian Gray MD Work Phone: [facility] 08-11-2022 14:14-0500 Body temperature 97.11 [degF] Vivian Gray MD Work Phone: [facility] 08-11-2022 14:14-0500 Body weight 76.3 kg Vivian Gray MD Work Phone: [facility] 08-11-2022 14:14-0500 Diastolic blood pressure 72 mm[Hg] Vivian Gray MD Work Phone: [facility] 08-11-2022 14:14-0500 Heart rate 82 /min Vivian Gray MD Work Phone: [facility] 08-11-2022 14:14-0500 SaO2% (BldA) [Mass fraction] 97 % Vivian Gray MD Work Phone: [facility] 08-11-2022 14:14-0500 Systolic blood pressure 118 mm[Hg] Vivian Gray MD Work Phone: [facility] 08-02-2022 15:26-0500 Body height 151.1 cm Alyssa Havana PREVENTIVE MEDICINE SPECIALIST.CONTRACT ASSISTANT Work Phone: [facility] 08-02-2022 15:26-0500 Body weight 75.48 kg Alyssa Germania PREVENTIVE MEDICINE SPECIALIST.CONTRACT ASSISTANT Work Phone: [facility] 08-02-2022 15:26-0500 Diastolic blood pressure 76 mm[Hg] Alyssa Havana PREVENTIVE MEDICINE SPECIALIST.CONTRACT ASSISTANT Work Phone: [facility] 08-02-2022 15:26-0500 Systolic blood pressure 110 mm[Hg] Alyssa Havana PREVENTIVE MEDICINE SPECIALIST.CONTRACT ASSISTANT Work Phone: [facility] 07-31-2022 13:28-0500 Body temperature 97.9 [degF] Dakota Paz MD Work Phone: [facility] 07-31-2022 13:28-0500 Body weight 75.3 kg Dakota Paz MD Work Phone: [facility] 07-31-2022 13:28-0500 Diastolic blood pressure 72 mm[Hg] Dakota Paz MD Work Phone: [facility] 07-31-2022 13:28-0500 Heart rate 90 /min Dakota Paz MD Work Phone: [facility] 07-31-2022 13:28-0500 Respiratory rate 18 /min Dakota Paz MD Work Phone: [facility] 07-31-2022 13:28-0500 SaO2% (BldA) [Mass fraction] 97 % Dakota Paz MD Work Phone: [facility] 07-31-2022 13:28-0500 Systolic blood pressure 124 mm[Hg] Dakota Paz MD Work Phone: [facility] 07-28-2022 11:19-0500 Body weight 75.03 kg Tootie Podlogar PREVENTIVE MEDICINE SPECIALIST.CONTRACT ASSISTANT Work Phone: [facility] 07-28-2022 11:19-0500 Diastolic blood pressure 74 mm[Hg] Tootie Podlogar PREVENTIVE MEDICINE SPECIALIST.CONTRACT ASSISTANT Work Phone: [facility] 07-28-2022 11:19-0500 Heart rate 72 /min Tootie Podlogar PREVENTIVE MEDICINE SPECIALIST.CONTRACT ASSISTANT Work Phone: [facility] 07-28-2022 11:19-0500 Respiratory rate 18 /min Tootie Podlogar PREVENTIVE MEDICINE SPECIALIST.CONTRACT ASSISTANT Work Phone: [facility] 07-28-2022 11:19-0500 SaO2% (BldA) [Mass fraction] 98 % Tootie Podlogar PREVENTIVE MEDICINE SPECIALIST.CONTRACT ASSISTANT Work Phone: [facility] 07-28-2022 11:19-0500 Systolic blood pressure 118 mm[Hg] Tootie Podlogar PREVENTIVE MEDICINE SPECIALIST.CONTRACT ASSISTANT Work Phone: [facility] 06-23-2022 14:13-0400 Body temperature 98.49 [degF] Tootie Podlogar PREVENTIVE MEDICINE SPECIALIST.CONTRACT ASSISTANT Work Phone: [facility] 06-23-2022 14:13-0400 Body weight 72.85 kg Tootie Podlogar PREVENTIVE MEDICINE SPECIALIST.CONTRACT ASSISTANT Work Phone: [facility] 06-23-2022 14:13-0400 Diastolic blood pressure 62 mm[Hg] Tootie Podlogar PREVENTIVE MEDICINE SPECIALIST.CONTRACT ASSISTANT Work Phone: [facility] 06-23-2022 14:13-0400 Heart rate 94 /min Tootie Podlogar PREVENTIVE MEDICINE SPECIALIST.CONTRACT ASSISTANT Work Phone: [facility] 06-23-2022 14:13-0400 Respiratory rate 20 /min Tootie Podlogar PREVENTIVE MEDICINE SPECIALIST.CONTRACT ASSISTANT Work Phone: [facility] 06-23-2022 14:13-0400 SaO2% (BldA) [Mass fraction] 95 % Tootie Podlogar PREVENTIVE MEDICINE SPECIALIST.CONTRACT ASSISTANT Work Phone: [facility] 06-23-2022 14:13-0400 Systolic blood pressure 106 mm[Hg] Tootie Podlogar PREVENTIVE MEDICINE SPECIALIST.CONTRACT ASSISTANT Work Phone: [facility] 06-17-2022 15:12-0400 Body height 144.8 cm Jose Hicks MD Work Phone: [facility] 06-17-2022 15:12-0400 Body weight 73.48 kg Jose Hicks MD Work Phone: [facility] 06-07-2022 15:14-0400 Body temperature 98.29 [degF] Abe Calzada PREVENTIVE MEDICINE SPECIALIST.CONTRACT ASSISTANT Work Phone: [facility] 06-07-2022 15:14-0400 Body weight 75.75 kg Abe Calzada PREVENTIVE MEDICINE SPECIALIST.CONTRACT ASSISTANT Work Phone: [facility] 06-07-2022 15:14-0400 Diastolic blood pressure 70 mm[Hg] Abe Calzada PREVENTIVE MEDICINE SPECIALIST.CONTRACT ASSISTANT Work Phone: [facility] 06-07-2022 15:14-0400 Heart rate 94 /min Abe Calzada PREVENTIVE MEDICINE SPECIALIST.CONTRACT ASSISTANT Work Phone: [facility] 06-07-2022 15:14-0400 Respiratory rate 18 /min Abe Calzada PREVENTIVE MEDICINE SPECIALIST.CONTRACT ASSISTANT Work Phone: [facility] 06-07-2022 15:14-0400 SaO2% (BldA) [Mass fraction] 97 % Abe Calzada PREVENTIVE MEDICINE SPECIALIST.CONTRACT ASSISTANT Work Phone: [facility] 06-07-2022 15:14-0400 Systolic blood pressure 110 mm[Hg] Abe Calzada PREVENTIVE MEDICINE SPECIALIST.CONTRACT ASSISTANT Work Phone: [facility] 05-05-2022 14:52-0400 Body temperature 98.29 [degF] Lia Eric PREVENTIVE MEDICINE SPECIALIST.CONTRACT ASSISTANT Work Phone: [facility] 05-05-2022 14:52-0400 Body weight 73.48 kg Lia Eric PREVENTIVE MEDICINE SPECIALIST.CONTRACT ASSISTANT Work Phone: [facility] 05-05-2022 14:52-0400 Diastolic blood pressure 60 mm[Hg] Lia Eric PREVENTIVE MEDICINE SPECIALIST.CONTRACT ASSISTANT Work Phone: [facility] 05-05-2022 14:52-0400 Heart rate 90 /min Lia Eric PREVENTIVE MEDICINE SPECIALIST.CONTRACT ASSISTANT Work Phone: [facility] 05-05-2022 14:52-0400 Respiratory rate 16 /min Lia Eric PREVENTIVE MEDICINE SPECIALIST.CONTRACT ASSISTANT Work Phone: [facility] 05-05-2022 14:52-0400 SaO2% (BldA) [Mass fraction] 98 % Lia Eric PREVENTIVE MEDICINE SPECIALIST.CONTRACT ASSISTANT Work Phone: [facility] 05-05-2022 14:52-0400 Systolic blood pressure 104 mm[Hg] Lia Eric PREVENTIVE MEDICINE SPECIALIST.CONTRACT ASSISTANT Work Phone: [facility] 04-19-2022 16:36-0400 Body temperature 98.1 [degF] Lia Eric PREVENTIVE MEDICINE SPECIALIST.CONTRACT ASSISTANT Work Phone: [facility] 04-19-2022 16:36-0400 Body weight 74.03 kg Lia Eric PREVENTIVE MEDICINE SPECIALIST.CONTRACT ASSISTANT Work Phone: [facility] 04-19-2022 16:36-0400 Diastolic blood pressure 80 mm[Hg] Lia Eric PREVENTIVE MEDICINE SPECIALIST.CONTRACT ASSISTANT Work Phone: [facility] 04-19-2022 16:36-0400 Heart rate 97 /min Lia Avalosk PREVENTIVE MEDICINE SPECIALIST.CONTRACT ASSISTANT Work Phone: [facility] 04-19-2022 16:36-0400 Respiratory rate 20 /min Lia Avalosk PREVENTIVE MEDICINE SPECIALIST.CONTRACT ASSISTANT Work Phone: [facility] 04-19-2022 16:36-0400 SaO2% (BldA) [Mass fraction] 98 % Lia Avalosk PREVENTIVE MEDICINE SPECIALIST.CONTRACT ASSISTANT Work Phone: [facility] 04-19-2022 16:36-0400 Systolic blood pressure 108 mm[Hg] Lia Eric PREVENTIVE MEDICINE SPECIALIST.CONTRACT ASSISTANT Work Phone: [facility] 01-26-2022 12:42-0400 Body temperature 98.2 [degF] Ian Jose C PREVENTIVE MEDICINE SPECIALIST.CONTRACT ASSISTANT Work Phone: [facility] 01-26-2022 12:42-0400 Body weight 73.48 kg Ian Ayeshadora PREVENTIVE MEDICINE SPECIALIST.CONTRACT ASSISTANT Work Phone: [facility] 01-26-2022 12:42-0400 Diastolic blood pressure 64 mm[Hg] Ian Pendlebury PREVENTIVE MEDICINE SPECIALIST.CONTRACT ASSISTANT Work Phone: [facility] 01-26-2022 12:42-0400 Heart rate 90 /min Ian Pendastonbury PREVENTIVE MEDICINE SPECIALIST.CONTRACT ASSISTANT Work Phone: [facility] 01-26-2022 12:42-0400 Respiratory rate 16 /min Ian Pendastonbury PREVENTIVE MEDICINE SPECIALIST.CONTRACT ASSISTANT Work Phone: [facility] 01-26-2022 12:42-0400 SaO2% (BldA) [Mass fraction] 97 % Ian Pendledroa PREVENTIVE MEDICINE SPECIALIST.CONTRACT ASSISTANT Work Phone: [facility] 01-26-2022 12:42-0400 Systolic blood pressure 106 mm[Hg] Ian Pendlebury PREVENTIVE MEDICINE SPECIALIST.CONTRACT ASSISTANT Work Phone: [facility] 01-14-2022 17:38-0400 Body temperature 98.2 [degF] Latha Coppola PREVENTIVE MEDICINE SPECIALIST.CONTRACT ASSISTANT Work Phone: [facility] 01-14-2022 17:38-0400 Body weight 73.66 kg Latha Coppola PREVENTIVE MEDICINE SPECIALIST.CONTRACT ASSISTANT Work Phone: [facility] 01-14-2022 17:38-0400 Diastolic blood pressure 70 mm[Hg] Latha Coppola PREVENTIVE MEDICINE SPECIALIST.CONTRACT ASSISTANT Work Phone: [facility] 01-14-2022 17:38-0400 Heart rate 100 /min Latha Coppola PREVENTIVE MEDICINE SPECIALIST.CONTRACT ASSISTANT Work Phone: [facility] 01-14-2022 17:38-0400 Respiratory rate 28 /min Latha Coppola PREVENTIVE MEDICINE SPECIALIST.CONTRACT ASSISTANT Work Phone: [facility] 01-14-2022 17:38-0400 SaO2% (BldA) [Mass fraction] 96 % Latha Coppola PREVENTIVE MEDICINE SPECIALIST.CONTRACT ASSISTANT Work Phone: [facility] 01-14-2022 17:38-0400 Systolic blood pressure 100 mm[Hg] Latha Coppola PREVENTIVE MEDICINE SPECIALIST.CONTRACT ASSISTANT Work Phone: [facility] 01-08-2022 13:36-0400 Body temperature 98.1 [degF] Sabrina Praisler-Wood PREVENTIVE MEDICINE SPECIALIST.CONTRACT ASSISTANT Work Phone: [facility] 01-08-2022 13:36-0400 Body weight 75.12 kg Sabrina Praisler-Wood PREVENTIVE MEDICINE SPECIALIST.CONTRACT ASSISTANT Work Phone: [facility] 01-08-2022 13:36-0400 Diastolic blood pressure 74 mm[Hg] Sabrina Praisler-Wood PREVENTIVE MEDICINE SPECIALIST.CONTRACT ASSISTANT Work Phone: [facility] 01-08-2022 13:36-0400 Heart rate 82 /min Sabrina Praisler-Wood PREVENTIVE MEDICINE SPECIALIST.CONTRACT ASSISTANT Work Phone: [facility] 01-08-2022 13:36-0400 Respiratory rate 14 /min Sabrina Praisler-Wood PREVENTIVE MEDICINE SPECIALIST.CONTRACT ASSISTANT Work Phone: [facility] 01-08-2022 13:36-0400 SaO2% (BldA) [Mass fraction] 98 % Sabrina Lester APRN.CONTRACT ASSISTANT Work Phone: [facility] 01-08-2022 13:36-0400 Systolic blood pressure 110 mm[Hg] Sabrina Lester APRN.CONTRACT ASSISTANT Work Phone: [facility] 12-07-2021 14:20-0400 Body weight 74.66 kg Shaniqua Beckford MD Work Phone: [facility] 12-07-2021 14:20-0400 Diastolic blood pressure 66 mm[Hg] Shaniqua Beckford MD Work Phone: [facility] 12-07-2021 14:20-0400 Heart rate 94 /min Shaniqua Beckford MD Work Phone: [facility] 12-07-2021 14:20-0400 Respiratory rate 18 /min Shaniqua Beckford MD Work Phone: [facility] 12-07-2021 14:20-0400 SaO2% (BldA) [Mass fraction] 97 % Shaniqua Beckford MD Work Phone: [facility] 12-07-2021 14:20-0400 Systolic blood pressure 128 mm[Hg] Shaniqua Beckford MD Work Phone: [facility] Encounters Encounter Date Encounter Type Care Provider Facility Start: 08-22-2023 End: 08-22-2023 ambulatory SHANIQUA BECKFORD Facility:[facility] Start: 08-22-2023 End: 08-22-2023 Patient encounter procedure Guillermina Peña PREVENTIVE MEDICINE SPECIALIST.CONTRACT ASSISTANT Work Phone: [facility] Procedures Date Procedure Procedure Detail Performing Clinician Start: 09-29-2022 Us transvaginal Alyssa M etcalf PREVENTIVE MEDICINE SPECIALIST.CONTRACT ASSISTANT Work Phone: Start: 08-20-2022 STREP A MOLECULAR (POC) [facility] Provider Start: 08-11-2022 Us transvaginal Alyssa M etcalf PREVENTIVE MEDICINE SPECIALIST.CONTRACT ASSISTANT Work Phone: Start: 08-11-2022 Mri any jt upper ext remity w/o contrast thangl Jose Hicks MD Work Phone: Start: 08-02-2022 Urnls dip stick/tabl et rgnt auto w/o microscopy Alyssa Cano PREVENTIVE MEDICINE SPECIALIST.CONTRACT ASSISTANT Work Phone: Start: 07-28-2022 INFLUENZA VACCINE QUADRIVALENT 6 MO - 64 YRS IM Tootie Podlogar PREVENTIVE MEDICINE SPECIALIST.CONTRACT ASSISTANT Work Phone: Start: 07-28-2022 PFIZER-BIONTECH COVI D-19 BIVALENT BOOSTER VACCINE, AGE 12+ YR Tootie Podlogar PREVENTIVE MEDICINE SPECIALIST.CONTRACT ASSISTANT Work Phone: Start: 06-07-2022 Radex wrist complete minimum 3 views Abe Calzada PREVENTIVE MEDICINE SPECIALIST.CONTRACT ASSISTANT Work Phone: Start: 01-26-2022 Urnls dip stick/tabl et rgnt auto w/o microscopy Latha Coppola PREVENTIVE MEDICINE SPECIALIST.CONTRACT ASSISTANT Work Phone: Start: 01-08-2022 STREP A MOLECULAR (POC) Sabrina Lester PREVENTIVE MEDICINE SPECIALIST.CONTRACT ASSISTANT Work Phone: Start: 12-09-2021 Us abdominal real ti me w/image limited Shaniqua Beckford MD Work Phone: Start: 10-21-2021 Adult depression scr eening assessment Shaniqua Beckford MD Work Phone: Plan of Treatment Date Care Activity Detail Author Start: 10-13-2027 PAP TESTING PAP TESTING [facility] Start: 08-22-2023 End: 09-05-2023 COVID & INFLUENZA A/B & RSV NAAT, ROUTINE [facility] Work Phone: Immunizations Immunization Date Immunization Notes Care Provider Fa margi 07-28-2022 COVID-19 booster vaccine, age 12+ yr, bivalent (PFIZER-BIONTECH) Tootie Podlogандрей PREVENTIVE MEDICINE SPECIALIST.CONTRACT ASSISTANT Work Phone: [facility] 07-28-2022 influenza, injectabl e, quadrivalent, contains preservative Tootie Podlogar PREVENTIVE MEDICINE SPECIALIST.CONTRACT ASSISTANT Work Phone: [facility] 07-28-2022 influenza virus vaccine, unspecified formulation Us 2 Work Phone: [facility] 07-30-2021 COVID-19 vaccine, ag e 12+ yr (PFIZER-BIONTECH - PURPLE TOP) Shaniqua Beckford MD Work Phone: [facility] 07-09-2021 COVID-19 vaccine, ag e 12+ yr (PFIZER-BIONTECH - PURPLE TOP) Shaniqua Beckford MD Work Phone: [facility] Payers Date Payer Category Payer Medicaid [employer] [place] [id number] 2020-Present [phone] [facility] [id number] [place] [address] Medicaid [id number] 2020 Medicaid [id number] 2020 Medicaid [id number] 2014 Private Health Insurance [id number] 1986 Unknown [id number] Self-pay Social History Date Type Detail Facility Start: 10-21-2021 End: 05-05-2022 Tobacco smoking status NHIS Ex-smoker [facility] End: 10-07-2021 History of tobacco use Current smoker [facility] Start: 10-21-2021 End: 10-02-2022 Cigarettes smoked current (pack per day) - Reported 0.5 [facility] Start: 10-21-2021 End: 05-05-2022 Tobacco use and exposure Smokeless tobacco non-user [facility] Start: 12-07-2021 End: 08-22-2023 Alcohol intake Current non-drinker of alcohol (finding) [facility] Start: 09-02-2021 End: 11-15-2022 History SDOH Alcohol Frequency 1 [facility] Start: 09-02-2021 End: 11-15-2022 History SDOH Alcohol Std Drinks 98 [facility] Start: 09-02-2021 End: 11-15-2022 History SDOH Social Connections Phone 2 [facility] Start: 09-02-2021 End: 11-15-2022 History SDOH Social Connections Living 7 [facility] Start: 09-02-2021 End: 11-15-2022 History SDOH Physical Activity DPW 5 [facility] Start: 09-02-2021 History SDOH Physica l Activity MPS 3 [facility] Start: 09-02-2021 End: 11-15-2022 History SDOH Stress 4 [facility] Start: 1985 Sex Assigned At Female [facility] Start: 11-27-2021 End: 08-20-2022 Exposure to SARS-CoV-2 (event) Not sure [facility] End: 10-07-2021 History of tobacco use Cigarette Smoker [facility] Start: 11-15-2022 History SDOH Alcohol Std Drinks 0 [facility] Start: 10-02-2022 End: 11-15-2022 Social connection and isolation panel [facility] Do you belong to any clubs or organizations such as buddhist groups, unions, fraternal or athletic groups, or school groups? No [facility] Are you now , , , , never or living with a partner? Never [facility] How often to you hav e a drink containing alcohol? Never [facility] How many standard dr inks containing alcohol do you have on a typical day? Patient does not drink [facility] How hard is it for y ou to pay for the very basics like food, housing, medical care, and heating Not very hard [facility] Do you feel stress - tense, restless, nervous, or anxious, or unable to sleep at night because your mind is troubled all the time - these days [OSQ] Only a little [facility] (I/We) worried wheth er (my/our) food would run out before (I/we) got money to buy more. Never true [facility] Start: 06-26-2021 Gender identity Identifies as female gender (finding) [facility] Start: 06-26-2021 Sexual orientation Heterosexual (miri carlton) [facility] How hard is it for y ou to pay for the very basics like food, housing, medical care, and heating Somewhat hard [facility] Do you feel stress - tense, restless, nervous, or anxious, or unable to sleep at night because your mind is troubled all the time - these days [OSQ] Rather much [facility] (I/We) worried wheth er (my/our) food would run out before (I/we) got money to buy more. Sometimes true [facility] Clinical Notes 12-07-2021 to 08-22-2023 Guillermina Peña APRN.CONTRACT ASSISTANT - 08/22/2023 6:05 PM Lizz George LPN - 08/08/2023 11:53 AM ESTTelephone Encounter - Bailey Contreras LPN - 05/24/2023 9:59 AM EDTPatient Instructions Note Date & Type Note Facility 08-22-2023 Note HNO ID: [id number] Author: Guillermina Peña APRN.CONTRACT ASSISTANT Service: ? Author Type: Nurse Practitioner Type: [...] left ovary LAP UMBILICAL HERNIA REPAIR ALLERGIES [place] [Hydrocodone-Acetaminophen] MEDICATIONS albuterol HFA (PROAIR HFA) 90 [...] Patient agreeable to treatment plan. Guillermina Peña APRN.[facility] 08-22-2023 History of Presen t illness Narrative [...] left ovary LAP UMBILICAL HERNIA REPAIR ALLERGIES [place] [Hydrocodone-Acetaminophen] MEDICATIONS albuterol HFA (PROAIR HFA) 90 [...] Patient agreeable to treatment plan. Guillermina Peña APRN.CONTRACT ASSISTANT documented in this encounter [facility] 08-08-2023 Note HNO ID: [id number] Author: Lizz Stewart LPN Service: ? Author Type: ? Type: Progress Notes Filed: 08/08/2023 11:53 AM Note Text: Scan on 08/06/2023 5:56 PM by Provider, ALEXA Cortes: X-ray [facility] 08-08-2023 History of Presen t illness Narrative Scan on 08/06/2023 5:56 PM by ProviderSophia PA-C: X-ray documented in this encounter [facility] 05-29-2023 Note HNO ID: [id number] Author: Sabrina Lester APRN.CONTRACT ASSISTANT Service: ? Author Type: Nurse Practitioner Type: [...] left ovary LAP UMBILICAL HERNIA REPAIR ALLERGIES [place] [Hydrocodone-Acetaminophen] MEDICATIONS omeprazole (PRILOSEC) 40 mg capsule [...] - Discussed expected course of illness Sabrina Lseter APRN.[facility] 05-24-2023 Miscellaneous Notes Patient has been identified by name and date of : Yes Patient phones for refill(s): Requested Prescriptions Pending Prescriptions Disp Refills omeprazole (PRILOSEC) 40 mg capsule 30 capsule 2 Sig: Take 1 capsule by mouth once daily. Date of last office visit in primary care: 12/01/2022 Please advise. Thank you. Bailey Contreras LPN documented in this encounter [facility] 04-14-2023 Miscellaneous Notes Patient returned call and given provider's message below. Adeline Cook RN Attempted to reach patient, no answer. full. message sent. Georgiana Antonio MA HSAT confirms at least mild sleep apnea with hypoxia into the 70's. Hypoxia out of proportion to her mild sleep apnea. Recommending in lab pap titration. documented in this encounter [facility] 04-11-2023 Note HNO ID: [id number] Author: Luke Washington Service: ? Author Type: ? Type: Progress Notes Filed: 04/11/2023 10:02 AM Note Text: Sleep Study Check-In Documentation Date: April 11, 2023 Name: Arlet Navarro Comments: HST was returned in working order with all sleep questionnaires Luke Washington [facility] 04-11-2023 History of Presen t illness Narrative Sleep Study Check-In Documentation Date: April 11, 2023 Name: Arlet Navarro Comments: HST was returned in working order with all sleep questionnaires Luke Washington Nomad# [id number], date shipped out 04/05/23 Tracking mailout: [id number] Tracking return: [id number] March 31, 2023 Standing PSG Orders signed in the last 90 days None Future PSG Orders signed in the last 90 days Ordered Auth. provider HOME SLEEP APNEA TEST (HSAT) [[id number]] 01/20/23 Shaniqua Beckford MD Assoc. diagnoses: Daytime [...] from Shaniqua Potter MD , a B. [facility] Staff. Visit prep complete. Comments :No The sleep study is scheduled for 04/22. Insurance: Payor: [employer] MEDICAID / Plan: [employer] MEDICAID OF [place] / Product Type: Medicaid / Payer/Plan Subscr Sex Relation Sub. Ins. ID Effective Group Num 1. [employer] MEDICA* MICHAEL NAVARRO* 1985 Female Self [id number] 10/20/22 [id number] [address] [address] Elida Denny documented in this encounter [facility] 04-05-2023 Note HNO ID: [id number] Author: Luke Washington Service: ? Author Type: ? Type: Progress Notes Filed: 04/11/2023 10:02 AM Note Text: Nomad# [id number], date shipped out 04/05/23 Tracking mailout: [id number] Tracking return: [phone] [facility] 04-04-2023 Note HNO ID: [id number] Author: Lizz Stewart LPN Service: ? Author Type: ? Type: Progress Notes Filed: 04/04/2023 4:32 PM Note Text: Scan on 04/04/2023 3:06 PM by ProviderSophia PA-C: X-ray [facility] 04-04-2023 History of Presen t illness Narrative Scan on 04/04/2023 3:06 PM by ProviderSophia PA-C: X-ray documented in this encounter [facility] 03-31-2023 Note HNO ID: [id number] Author: Trever Delacruz III, PhD Service: ? Author Type: Physician Type: Progress Notes Filed: 04/11/2023 10:02 AM Note Text: March 31, 2023 Standing PSG Orders signed in the last 90 days None Future PSG Orders signed in the last 90 days Ordered Auth. provider HOME SLEEP APNEA TEST (HSAT) [[id number]] 01/20/23 Shaniqua Beckford MD Assoc. diagnoses: Daytime [...] Trever Delacruz III, PhD 4:59 PM, 03/31/2023 [facility] 03-30-2023 Note HNO ID: [id number] Author: Elida Denny Service: ? Author Type: ? Type: Progress Notes Filed: 04/11/2023 10:02 AM Note Text: March 30, 2023 An order has been received for Home Sleep Apnea Test (HSAT) from Shaniqua Potter MD , a B. [facility] Staff. Visit prep complete. Comments :No The sleep study is scheduled for 04/22. Insurance: Payor: [employer] MEDICAID / Plan: [employer] MEDICAID [facility] / Product Type: Medicaid / Payer/Plan Subscr Sex Relation Sub. Ins. ID Effective Group Num 1. [employer] MEDICA* MICHAEL NAVARRO* 1985 Female Self [id number] 10/20/22 [id number] [address] [address] Elida Denny [facility] 03-17-2023 Miscellaneous Notes Called patient on [...] Slot held: N/A documented in this encounter [facility] 02-28-2023 Miscellaneous Notes Patient phones requesting refills as follows: Requested Prescriptions Pending Prescriptions Disp Refills omeprazole (PRILOSEC) 40 mg capsule 30 capsule 2 Sig: Take 1 capsule by mouth once daily. MIAN-12/01/22 Labs-01/13/23 NOV-none Please review and advise. Leila Garcia LPN documented in this encounter [facility] 01-27-2023 Note HNO ID: [id number] Author: Jose Hicks MD Service: ? Author Type: Physician Type: Progress Notes Filed: 03/03/2023 7:34 AM Note Text: Jose Hicks MD Department of Orthopaedics Orthopaedics [address] [facility] [address] Dept: [phone] Dept January 27, 2023 CHIEF COMPLAINT: Established Patient and Pain of the Right Wrist HPI Patient here today for ongoing right wrist pain. States she had to leave work today because she dropped something and broke it and burnt her hand. 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 Allergies: [place] [Hydrocodone-Acetaminophen] ROS: General (negative for fatigue, malaise, weight loss/gain) HEENT (negative for headache, earache, recent vision changes, sinus pain, sore throat) Respiratory (no recent shortness of breath, hemoptysis) CV (negative for chest tightness, palpitations) Musculoskeletal (see HPI) Psych (no depression, anxiety) Jose Hicks MD [facility] 01-27-2023 History of Presen t illness Narrative Jose Hicks MD Department of Orthopaedics Orthopaedics [address] [facility] [address] Dept: [phone] Dept January 27, 2023 CHIEF COMPLAINT: Established Patient and Pain of the Right Wrist HPI Patient here today for ongoing right wrist pain. States she had to leave work today because she dropped something and broke it and burnt her hand. 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 Allergies: [place] [Hydrocodone-Acetaminophen] ROS: General (negative for fatigue, malaise, weight loss/gain) HEENT (negative for headache, earache, recent vision changes, sinus pain, sore throat) Respiratory (no recent shortness of breath, hemoptysis) CV (negative for chest tightness, palpitations) Musculoskeletal (see HPI) Psych (no depression, anxiety) Jose Hicks MD documented in this encounter [facility] 01-27-2023 Note HNO ID: [id number] Author: Dakota Paz MD Service: ? 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 Drainage/blister/pustule/ulcerat ion: dropped and broke a coffee [...] mouth once daily. ALLERGIES: ALLERGIES Allergen Reactions [place] [Hydrocodone-* Hives, Swelling VITALS: BP 110/74 Pulse [...] difficulty performing her job. Dakota Paz MD [facility] 01-27-2023 Miscellaneous Notes Patient was seen in May 2022 and had wrist MRI in July. She presented to [facility] today because she is still having issues with her right wrist - pain, weakness, numbness. It is interfering with her ability to work. She has not heard results from the July MRI yet. Follow up appointment scheduled with ortho to review results and get recommendations for treatment/work up. documented in this encounter [facility] 01-27-2023 History of Presen t illness Narrative Patient presents with: right hand pain: Dropped coffee pot this am and burnt hand HPI: Wrist pain: Location: right hand below the thumb Duration: years Pruritis/Pain: pain and numbness Change: worsened pain, numbness, and weakness. 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 Drainage/blister/pustule/ulcerat ion: dropped and broke a coffee [...] mouth once daily. ALLERGIES: ALLERGIES Allergen Reactions [place] [Hydrocodone-* Hives, Swelling VITALS: BP 110/74 Pulse [...] Dakota Paz MD documented in this encounter [facility] 01-20-2023 Miscellaneous Notes Patient was notified [...] Tootie Mujica APRN.ANALISA documented in this encounter [facility] 01-13-2023 Miscellaneous Notes Phoned patient and reviewed results and recommendations with her. She voiced understanding. Please call patient and let her know her blood shows increased white count as it has in the past. I reached out to our bezel cutter and he recommended some additional labs. I have placed orders for these and she can come complete at her convenience. Tootie Mujica APRN.ANALISA documented in this encounter [facility] 12-01-2022 Note HNO ID: [id number] Author: Tootie Mujica APRN.CNP Service: ? Author [...] HISTORY Diagnosis Date Arthritis Kidney stones ALLERGIES [place] [Hydrocodone-Acetaminophen] MEDICATIONS Current Outpatient Medications Medication Sig [...] R09.81 - plan (more content not included)... [facility] 12-01-2022 Instructions Tootie Mujica APRN.CNP - 12/01/2022 7:11 PM EDT Follow-up pending testing documented in this encounter [facility] 12-01-2022 History of Presen t illness [...] HISTORY Diagnosis Date Arthritis Kidney stones ALLERGIES [place] [Hydrocodone-Acetaminophen] MEDICATIONS Current Outpatient Medications Medication Sig [...] - LORATADINE 10 MG TABLET Tootie Mujica APRN.CONTRACT ASSISTANT Prescription instructions reviewed with patient as applicable. [...] which included preparing to see the patient, [id number] patient care, completing clinical documentation, obtaining and/or reviewing separately obtained history, performing a medically appropriate examination, counseling and educating the patient/family/caregiver, and ordering medications, tests, or procedures. documented in this encounter [facility] 12-01-2022 Miscellaneous Notes Patient scheduled appointment this day. Luz Patel LPN documented in this encounter [facility] 11-15-2022 Note HNO ID: [id number] Author: Carito Medeiros PA-C Service: ? Author Type: Physician Scrum Master Type: Progress Notes Filed: 11/15/2022 7:40 PM [...] electrolytes. See d/c instructions. Carito Medeiros PA-C [facility] 11-15-2022 Instructions Carito Medeiros PA-C - [...] cause gastroenteritis, including rotaviruses, adenoviruses, and the [place] virus. Gastroenteritis is caused by swallowing one [...] someone who has stomach flu. Published by [employer]. This content is reviewed periodically and is subject to change as new health information becomes available. The information is intended to inform and educate and is not a replacement for medical evaluation, advice, diagnosis or treatment by a healthcare professional. Developed by [employer]. Copyright 2005 [employer] and/or one of its subsidiaries. All Rights Reserved. Special Instructions: If severe pain, faintness, muscle aches, go to the emergency department. documented in this encounter [facility] 11-15-2022 History of Presen t illness [...] Carito Medeiros PA-C documented in this encounter [facility] 11-14-2022 Note HNO ID: [id number] Author: Abe Calzada APRN.CONTRACT ASSISTANT Service: ? Author Type: Nurse Practitioner Type: [...] left ovary LAP UMBILICAL HERNIA REPAIR ALLERGIES [place] [Hydrocodone-Acetaminophen] MEDICATIONS albuterol HFA (PROAIR HFA) 90 [...] - AMOXICILLIN 875 MG TABLET Abe Calzada APRN.[facility] 11-14-2022 History of Presen t illness Narrative [...] left ovary LAP UMBILICAL HERNIA REPAIR ALLERGIES [place] [Hydrocodone-Acetaminophen] MEDICATIONS albuterol HFA (PROAIR HFA) 90 [...] Abe Calzada APRN.ANALISA documented in this encounter [facility] 10-15-2022 Miscellaneous Notes Patient notified.Mallory Smith LPN Note is in mychart. Patient calling and states she was seen in [facility] yesterday for Viral URI. She states [...] update. Thank you. documented in this encounter [facility] 10-14-2022 Note HNO ID: [id number] Author: Martine Munroe PA-C Service: ? Author Type: Physician Scrum Master Type: Progress Notes Filed: 10/14/2022 3:57 PM Note Text: This note was created using [employer]riter. Subjective Arlet Navarro is a 37 year [...] COVID WITH FLUA+B, ROUTINE Martine Munroe PA-C [facility] 10-14-2022 History of Presen t illness Narrative This note was created using [employer]riter. Subjective Arlet Navarro is a 37 year [...] Martine Munroe PA-C documented in this encounter [facility] 10-14-2022 Influenza virus A and B RNA and SARS-CoV-2 (COVID-19) N gene panel MADHAVI+probe (Resp) COVID 19 RESULT: SARS-CoV-2 (Agent of COVID-19) Not Detected by RT-PCR or equivalent method. This test was developed and its performance characteristics determined by [facility] [place]. This test has been authorized by FDA under an Emergency Use Authorization (EUA). This test has been validated in accordance with the FDA's Guidance Document Policy for Diagnostics Testing in Laboratories Certified to Perform High Complexity Testing under CLIA prior to Emergency use Authorization for Coronavirus Disease 2019 during the Public Health Emergency issued on November 17, 2019. Test performed by [facility], [facility] [place], [address] [place] [address]. INFLUENZA A PCR: Negative for Influenza A by RT-PCR INFLUENZA B PCR: Negative for Influenza B by RT-PCR [facility] Diagnosis Epigastric pain- Primary Abdominal pain, epigastric Gastroesophageal reflux disease, unspecified whether esophagitis present Esophageal dysphagia Dysphagia, pharyngoesophageal phase [facility] Diagnosis Epigastric pain- Primary Abdominal pain, epigastric [facility] Diagnosis Epigastric pain Abdominal pain, epigastric Gastroesophageal reflux disease, unspecified whether esophagitis present Esophageal dysphagia Dysphagia, pharyngoesophageal phase [facility] Diagnosis Sore throat- Primary Acute pharyngitis Swelling of right eyelid [facility]* Diagnosis Viral illness- Primary Unspecified viral infection, in conditions classified elsewhere and of unspecified site URI, acute Acute upper respiratory infections of unspecified site [facility] Diagnosis Lower abdominal pain- Primary Abdominal pain, other specified site [facility] Diagnosis Rash- Primary Rash and other nonspecific skin eruption Upper respiratory symptom Other symptoms involving respiratory system and chest Suspected COVID-19 virus infection [facility] Diagnosis Pain of left heel- Primary Pain in limb [facility] Diagnosis Plantar fasciitis- Primary Plantar fascial fibromatosis Pain of left heel Pain in limb [facility]* Diagnosis Wrist injuries, right, initial encounter- Primary Abnormal x-ray Other nonspecific (abnormal) findings on radiological and other examinations of body structure [facility]* Diagnosis SOB (shortness of breath)- Primary Shortness of breath [facility]* Diagnosis Diarrhea, unspecified type- Primary Wheezing Upper respiratory tract infection, unspecified type [facility] Diagnosis Primary osteoarthritis of first carpometacarpal joint of right hand- Primary Primary localized osteoarthrosis, hand Right wrist pain Pain in joint, forearm Disorder of bone Disorder of bone and cartilage, unspecified [facility]* Diagnosis Leukocytosis, unspecified type- Primary Encounter for immunization Need for other specified prophylactic vaccination against single bacterial disease Muscle spasm Spasm of muscle [facility]* Diagnosis Forearm strain, right, initial encounter- Primary [facility]* Diagnosis Encounter for gynecological examination (general) (routine) without abnormal findings- Primary Encounter for screening for human papillomavirus (HPV) Special screening examination for human papillomavirus (HPV) Pelvic pain in female Unspecified symptom associated with female genital organs Encounter for screening mammogram for malignant neoplasm of breast Other screening mammogram [facility]* Diagnosis Leukocytosis, unspecified type- Primary [facility] Diagnosis Bleeding hemorrhoid Unspecified hemorrhoids with other complication [facility]* Diagnosis Ovarian cyst, left- Primary Other and unspecified ovarian cyst documented [facility]* Diagnosis Sore throat- Primary Acute pharyngitis URI, acute Acute upper respiratory infections of unspecified site documented [facility]* Diagnosis Epigastric pain Abdominal pain, epigastric Gastroesophageal reflux disease, unspecified whether esophagitis present [facility]* Diagnosis Complex cyst of left ovary- Primary [facility]* Diagnosis Pelvic pain in female- Primary Unspecified symptom associated with female genital organs Levator spasm Abnormal involuntary movements Family history of malignant neoplasm of breast documented in this encounter [facility] note* Diagnosis Viral URI with cough- Primary Acute upper respiratory infections of unspecified site [facility]* Diagnosis Tooth ache- Primary [facility]* Diagnosis Vomiting and diarrhea- Primary Vomiting alone [facility]* Diagnosis Fatigue, unspecified type- Primary SOB (shortness of breath) Shortness of breath Generalized weakness Other malaise and fatigue Rhinorrhea Other diseases of nasal cavity and sinuses Snoring Other dyspnea and respiratory abnormality Daytime somnolence Hypersomnia, unspecified Witnessed apneic spells Apnea Nasal congestion Other diseases of nasal cavity and sinuses [facility]* Diagnosis Abnormal CBC- Primary Other abnormal blood chemistry documented in this encounter [facility] note* Diagnosis Daytime somnolence- Primary Hypersomnia, unspecified [facility] Diagnosis Abrasion of right hand, initial encounter- Primary Chronic wrist pain, right documented in this encounter [facility] note* Diagnosis Epigastric pain Abdominal pain, epigastric Gastroesophageal reflux disease, unspecified whether esophagitis present [facility] Diagnosis Carpal tunnel syndrome of right wrist- Primary Carpal tunnel syndrome Ulnar neuropathy at elbow of right upper extremity documented in this encounter [facility] note* Diagnosis ZOFIA (obstructive sleep apnea)- Primary Obstructive sleep apnea (adult) (pediatric) Hypoxia Hypoxemia documented in this encounter [facility] note* Diagnosis Epigastric pain Abdominal pain, epigastric Gastroesophageal reflux disease, unspecified whether esophagitis present documented in this encounter [facility] note* Diagnosis Pelvic pain in female Unspecified symptom associated with female genital organs documented in this encounter [facility] note* Diagnosis Ovarian cyst, left Other and unspecified ovarian cyst documented in this encounter [facility] note* Diagnosis URI, acute- Primary Acute upper respiratory infections of unspecified site Nausea and vomiting, unspecified vomiting type documented in this encounter [facility] for referral (narrative)* Diagnostic Procedure Only (Urgent) - Authorized Specialty Diagnoses / Procedures Referred By Vicente moran Referred To Contact US IMAGING Diagnoses Epigastric pain Procedures US ABD RT UPPER QUADRANT US ABDOMINAL REAL TIME W/IMAGE LIMITED Shaniqua Beckford MD [address] [place] [address] Us Imaging Referral ID Status Reason Start Date Expiration Date Visits Requested Visits Authorized [id number] Authorized Auto-Generat ed Referral 12/07/2021 01/06/2023 1 1 * Consult, Test, Treat (Routine) - Authorized Specialty Diagnoses / Procedures Referred By Vicente moran Referred To Contact Gastroenterology Diagnoses Esophageal dysphagia Odynophagia Early satiety Procedures CONSULT TO GASTROENTEROLOGY OFFICE/OUTPATIENT [facility] 60-74 MINUTES Shaniqua Beckford MD [address] [place] [address] Referral ID Status Reason Start Date Expiration Date Visits Requested Visits Authorized [id number] Authorized PCP Requested Referral 12/07/2021 12/07/2022 1 1 * Diagnostic Procedure Only (Routine) - Closed Specialty Diagnoses / Procedures Referred By Vicente t Referred To Contact XR IMAGING Diagnoses Gastroesophageal reflux disease, unspecified whether esophagitis present Esophageal dysphagia Odynophagia Early satiety Procedures XR ABDOMEN 1V SUPINE RADIOLOGIC EXAM ABDOMEN 1 VIEW Shaniqua Beckford MD [address] [place] [address] Xr Imaging Referral ID Status Reason Start Date Expiration Date V isits Requested Visits Authorized [id number] Closed Auto-Generate d Referral 12/07/2021 01/06/2023 1 1 [facility] for referral (narrative)* Diagnostic Procedure Only (Urgent) - Closed Specialty Diagnoses / Procedures Referred By Contac t Referred To Contact US IMAGING Diagnoses Epigastric pain Gastroesophageal reflux disease, unspecified whether esophagitis present Esophageal dysphagia Procedures US ABD RT UPPER QUADRANT US ABDOMINAL REAL TIME W/IMAGE LIMITED Shaniqua Beckford MD [address] [place] [address] Us Imaging Referral ID Status Reason Start Date Expiration Date V isits Requested Visits Authorized [id number] Closed Auto-Generate d Referral 12/08/2021 01/07/2023 1 1 [facility] for referral (narrative)* Diagnostic Procedure Only (Urgent) - Closed Specialty Diagnoses / Procedures Referred By Vicente t Referred To Contact US IMAGING Diagnoses Epigastric pain Gastroesophageal reflux disease, unspecified whether esophagitis present Esophageal dysphagia Procedures US ABD RT UPPER QUADRANT US ABDOMINAL REAL TIME W/IMAGE LIMITED Shaniqua Beckford MD [address] [place] [address] Us Imaging Referral ID Status Reason Start Date Expiration Date V isits Requested Visits Authorized [id number] Closed Auto-Generate d Referral 12/08/2021 01/07/2023 1 1 [facility] for referral (narrative)* Diagnostic Procedure Only (Routine) - Authorized Specialty Diagnoses / Procedures Referred By Jonatanac t Referred To Contact BR IMAGING Diagnoses Encounter for screening mammogram for malignant neoplasm of breast Procedures ARACELI SCREENING W HOLLIS SCREENING DIGITAL BREAST TOMOSYNTHESIS BI SCREENING MAMMOGRAPHY BI 2-VIEW BREAST INC Alyssa Ojeda, DAMARI.ANALISA [address] [place] [address] [facility] Imaging [address] [place] [address] Referral ID Status Reason Start Date Expiration Date Visits Requested Visits Authorized [id number] Authorized Auto-Generat ed Referral 2 09/01/2023 1 1 * Diagnostic Procedure Only (Routine) - Authorized Specialty Diagnoses / Procedures Referred By Contac t Referred To Contact US IMAGING Diagnoses Pelvic pain in female Procedures US FEMALE PELVIS TRANSVAG US TRANSVAGINAL Alyssa Cano APRN.CONTRACT ASSISTANT [address] [place] [address] Us Imaging Referral ID Status Reason Start Date Expiration Date Visits Requested Visits Authorized [id number] Authorized Auto-Generat ed Referral 2 09/01/2023 1 [facility] Diagnostic Procedure Only (Routine) - Pending Review Specialty Diagnoses / Procedures Referred By Contac t Referred To Contact US IMAGING Diagnoses Ovarian cyst, left Procedures US FEMALE PELVIS TRANSVAG US TRANSVAGINAL Alyssa Cano APRN.CONTRACT ASSISTANT [address] [place] [address] Us Imaging Referral ID Status Reason Start Date Expiration Date Visits Requested Visits Authorized [id number] Pending Review Auto-Generat ed Referral 2 09/15/2023 1 1 [facility] for referral (narrative)* Diagnostic Procedure Only (Routine) - Pending Review Specialty Diagnoses / Procedures Referred By Contac t Referred To Contact US IMAGING Diagnoses Complex cyst of left ovary Procedures US FEMALE PELVIS TRANSVAG US TRANSVAGINAL Alyssa Cano APRN.CONTRACT ASSISTANT [address] [place] [address] Us Imaging Referral ID Status Reason Start Date Expiration Date Visits Requested Visits Authorized [id number] Pending Review Auto-Generat ed Referral 10/01/2022 10/31/2023 1 1 [facility] for referral (narrative)* Outpatient Procedure (Routine) - Pending Review Specialty Diagnoses / Procedures Referred By Contac t Referred To Contact [facility] Diagnoses SOB (shortness of breath) Procedures SPIROMETRY - BASELINE AND POST DILATOR BRNCDILAT RSPSE SPMTRY PRE&POST-BRNCDILAT ADMN Tootie Mujica APRN.CNP [address] [place] [address] Respiratory [place] [id number] Referral ID Status Reason Start Date Expiration Date Visits Requested Visits Authorized [id number] Pending Review Auto-Generat ed Referral 12/01/2022 12/31/2023 1 1 [facility] for referral (narrative)* Diagnostic Procedure Only (Routine) - Pending Review Specialty Diagnoses / Procedures Referred By Contact Referred To Contact [facility] Diagnoses Daytime somnolence Procedures HOME SLEEP APNEA TEST (HSAT) SLEEP STD AIRFLOW HRT RATE&O2 SAT EFFORT UNATT Shaniqua Beckford MD [address] [place] [address] Neurological [place] [id number] Referral ID Status Reason Start Date Expiration Date Visits Requested Visits Authorized [id number] Pending Review Auto-Generat ed Referral 01/20/2023 01/20/2024 1 1 T [facility] for referral (narrative)* Diagnostic Procedure Only (Routine) - Pending Review Specialty Diagnoses / Procedures Referred By Contac t Referred To Contact US IMAGING Diagnoses Ulnar neuropathy at elbow of right upper extremity Procedures US ELBOW RIGHT US LMTD JOINT/OTH NONVASC XTR STRUX R-T W/IMG Jose Hicks MD [address] [place] [address] Us Imaging Referral ID Status Reason Start Date Expiration Date Visits Requested Visits Authorized [id number] Pending Review Auto-Generat ed Referral 01/27/2023 02/26/2024 1 1 * Diagnostic Procedure Only (Routine) - Pending Review Specialty Diagnoses / Procedures Referred By Vicente t Referred To Contact US IMAGING Diagnoses Carpal tunnel syndrome of right wrist Procedures US WRIST RIGHT US COMPL JOINT R-T W/IMAGE DOCUMENTATION Jose Hicks MD [address] [place] [address] Us Imaging Referral ID Status Reason Start Date Expiration Date Visits Requested Visits Authorized [id number] Pending Review Auto-Generat ed Referral 01/27/2023 02/26/2024 1 1 [facility] for referral (narrative)* Diagnostic Procedure Only (Routine) - Closed Specialty Diagnoses / Procedures Referred By Vicente moran Referred To Contact US IMAGING Diagnoses Pelvic pain in female Procedures US FEMALE PELVIS TRANSVAG US TRANSVAGINAL Alyssa Cano APRN.CNP [address] [place] [address] [place] [address] Referral ID Status Reason Start Date Expiration Date V isits Requested Visits Authorized [id number] Closed Auto-Generate d Referral 08/02/2022 09/01/2023 1 1 [facility] for referral (narrative)* Diagnostic Procedure Only (Routine) - Closed Specialty Diagnoses / Procedures Referred By Vicente t Referred To Contact US IMAGING Diagnoses Ovarian cyst, left Procedures US FEMALE PELVIS TRANSVAG US TRANSVAGINAL Alyssa Cano APRN.CNP [address] [place] [address] [place] [address] Referral ID Status Reason Start Date Expiration Date V isits Requested Visits Authorized [id number] Closed Auto-Generate d Referral 08/16/2022 09/15/2023 1 1 [facility] for visit Narrative* Diagnostic Procedure Only (Urgent) - Closed Specialty Diagnoses / Procedures Referred By Jonatanac t Referred To Contact US IMAGING Diagnoses Epigastric pain Gastroesophageal reflux disease, unspecified whether esophagitis present Esophageal dysphagia Procedures US ABD RT UPPER QUADRANT US ABDOMINAL REAL TIME W/IMAGE LIMITED Shaniqua Beckford MD [address] [place] [address] Us Imaging Referral ID Status Reason Start Date Expiration Date V isits Requested Visits Authorized [id number] Closed Auto-Generate d Referral 12/08/2021 01/07/2023 1 1 [facility] Summary Purpose Family History No Family [...] & PELVIS W/CONTRAST Shaniqua Beckford MD [address] [place] [address] Ct Imaging Referral ID Status Reason Start Date Expiration Date Visits Requested Visits Authorized [id number] Pending Review Auto-Genera betsey Referral Patient Cleared - Admin/Chair man/Directo r advise to proceed 12/09/2021 01/08/2023 1 1 Specialty Diagnoses / Procedures Referred By Jonatanac t Referred To Contact Podiatry Diagnoses Pain of left heel Procedures CONSULT TO PODIATRY OFFICE/OUTPATIENT [facility] MDM 60-74 MINUTES Lia Reyes APRN.CNP [address] [place] [address] Referral ID Status Reason Start Date Expiration Date Visits Requested Visits Authorized [id number] Authorized PCP Requested Referral 05/05/2022 05/05/2023 1 1 Specialty Diagnoses / Procedures Referred By Contac t Referred To Contact XR IMAGING Diagnoses Pain of left heel Procedures XR CALCANEUS 2V AXIAL/LAT LEFT RADEX CALCANEUS MINIMUM 2 VIEWS Lia Reyes APRN.CONTRACT ASSISTANT [address] [place] [address] Xr Imaging Referral ID Status Reason Start Date Expiration Date V isits Requested Visits Authorized [id number] Closed Auto-Generate d Referral 05/05/2022 06/04/2023 1 1 Specialty Diagnoses / Procedures Referred By Contac t Referred To Contact Orthopedics Diagnoses Abnormal x-ray Procedures CONSULT TO ORTHOPAEDICS OFFICE/OUTPATIENT [facility] 60-74 MINUTES Abe Calzada APRN.CONTRACT ASSISTANT [address] [place] [address] Referral ID Status Reason Start Date Expiration Date Visits Requested Visits Authorized [id number] Authorized PCP Requested Referral 06/07/2022 06/07/2023 1 1 Specialty Diagnoses / Procedures Referred By Contac t Referred To Contact XR IMAGING Diagnoses Wrist injuries, right, initial encounter Procedures XR WRIST GENERAL 3V PA/LAT/OBL RIGHT RADEX WRIST COMPLETE MINIMUM 3 VIEWS Abe Calzada APRN.CONTRACT ASSISTANT [address] [place] [address] Xr Imaging Referral ID Status Reason Start Date Expiration Date V isits Requested Visits Authorized [id number] Closed Auto-Generate d Referral 06/07/2022 07/07/2023 1 1 Specialty Diagnoses / Procedures Referred By Contac t Referred To Contact MR IMAGING Diagnoses Disorder of bone Procedures MRI WRIST WO IVCON RT MRI ANY JT UPPER EXTREMITY W/O CONTRAST Jose Dupree MD [address] [place] [address] Mr Imaging Referral ID Status Reason Start Date Expiration Date Visits Requested Visits Authorized [id number] Pending Review Auto-Generat ed Referral 08/14/2023 1 1 Specialty Diagnoses / Procedures Referred By Contac t Referred To Contact Diagnoses Family history of malignant neoplasm of breast Procedures CONSULT TO [facility] CANCER GENETIC COUNSELING MEDICAL GENETICS COUNSELING EACH 30 MINUTES Luis Tavarez MD [address] [place] [address] [address] Referral ID Status Reason Start Date Expiration Date Visits Requested Visits Authorized [id number] Authorized PCP Requested Referral Auto-Generate d Referral 10/13/2022 10/13/2023 1 1 Specialty Diagnoses / Procedures Referred By Contac t Referred To Contact [facility] Diagnoses Pelvic pain in female Levator spasm Procedures CONSULT TO PHYSICAL THERAPY PHYSICAL THERAPY EVALUATION HIGH COMPLEX 45 MINS Lius Tavarez MD [address] [place] [address] [facility] Sports Therapy [address] [address] Referral ID Status Reason Start Date Expiration Date Visits Requested Visits Authorized [id number] Pending Review Auto-Generat ed Referral 10/13/2022 10/13/2023 [...] DATE CREATED AUTHOR AUTHOR'S ORGANIZ ATION 07/06/2018 [facility] ([place]) DATE CREATED AUTHOR AUTHOR'S ORGANIZ ATION 01/01/2019 [facility] DATE CREATED AUTHOR AUTHOR'S ORGANIZ ATION 01/09/2019 [facility] DATE CREATED AUTHOR AUTHOR'S ORGANIZ ATION 08/24/2023 [facility] Source Comments (unrecognize d section and content) In the event this informatio n is protected by the Federal Confidentiality of Alcohol and Drug Abuse Patient Records regulations: The Federal rules restrict any use of the information to criminally investigate or prosecute any alcohol or drug abuse patient.[facility] the event this information is protected by the Federal Confidentiality of Alcohol and Drug Abuse Patient Records regulations: The Federal rules restrict any use of the information to criminally investigate or prosecute any alcohol or drug abuse patient.[facility] the event this information is protected by the Federal Confidentiality of Alcohol and Drug Abuse Patient Records regulations: The Federal rules restrict any use of the information to criminally investigate or prosecute any alcohol or drug abuse patient.[facility] the event this information is protected by the Federal Confidentiality of Alcohol and Drug Abuse Patient Records regulations: The Federal rules restrict any use of the information to criminally investigate or prosecute any alcohol or drug abuse patient.[facility] the event this information is protected by the Federal Confidentiality of Alcohol and Drug Abuse Patient Records regulations: The Federal rules restrict any use of the information to criminally investigate or prosecute any alcohol or drug abuse patient.[facility] the event this information is protected by the Federal Confidentiality of Alcohol and Drug Abuse Patient Records regulations: The Federal rules restrict any use of the information to criminally investigate or prosecute any alcohol or drug abuse patient.[facility] the event this information is protected by the Federal Confidentiality of Alcohol and Drug Abuse Patient Records regulations: The Federal rules restrict any use of the information to criminally investigate or prosecute any alcohol or drug abuse patient.[facility] the event this information is protected by the Federal Confidentiality of Alcohol and Drug Abuse Patient Records regulations: The Federal rules restrict any use of the information to criminally investigate or prosecute any alcohol or drug abuse patient.[facility] the event this information is protected by the Federal Confidentiality of Alcohol and Drug Abuse Patient Records regulations: The Federal rules restrict any use of the information to criminally investigate or prosecute any alcohol or drug abuse patient.[facility] the event this information is protected by the Federal Confidentiality of Alcohol and Drug Abuse Patient Records regulations: The Federal rules restrict any use of the information to criminally investigate or prosecute any alcohol or drug abuse patient.[facility] the event this information is protected by the Federal Confidentiality of Alcohol and Drug Abuse Patient Records regulations: The Federal rules restrict any use of the information to criminally investigate or prosecute any alcohol or drug abuse patient.[facility] the event this information is protected by the Federal Confidentiality of Alcohol and Drug Abuse Patient Records regulations: The Federal rules restrict any use of the information to criminally investigate or prosecute any alcohol or drug abuse patient.[facility] the event this information is protected by the Federal Confidentiality of Alcohol and Drug Abuse Patient Records regulations: The Federal rules restrict any use of the information to criminally investigate or prosecute any alcohol or drug abuse patient.[facility] the event this information is protected by the Federal Confidentiality of Alcohol and Drug Abuse Patient Records regulations: The Federal rules restrict any use of the information to criminally investigate or prosecute any alcohol or drug abuse patient.[facility] the event this information is protected by the Federal Confidentiality of Alcohol and Drug Abuse Patient Records regulations: The Federal rules restrict any use of the information to criminally investigate or prosecute any alcohol or drug abuse patient.[facility] the event this information is protected by the Federal Confidentiality of Alcohol and Drug Abuse Patient Records regulations: The Federal rules restrict any use of the information to criminally investigate or prosecute any alcohol or drug abuse patient.[facility] the event this information is protected by the Federal Confidentiality of Alcohol and Drug Abuse Patient Records regulations: The Federal rules restrict any use of the information to criminally investigate or prosecute any alcohol or drug abuse patient.[facility] the event this information is protected by the Federal Confidentiality of Alcohol and Drug Abuse Patient Records regulations: The Federal rules restrict any use of the information to criminally investigate or prosecute any alcohol or drug abuse patient.[facility] the event this information is protected by the Federal Confidentiality of Alcohol and Drug Abuse Patient Records regulations: The Federal rules restrict any use of the information to criminally investigate or prosecute any alcohol or drug abuse patient.[facility] the event this information is protected by the Federal Confidentiality of Alcohol and Drug Abuse Patient Records regulations: The Federal rules restrict any use of the information to criminally investigate or prosecute any alcohol or drug abuse patient.[facility] the event this information is protected by the Federal Confidentiality of Alcohol and Drug Abuse Patient Records regulations: The Federal rules restrict any use of the information to criminally investigate or prosecute any alcohol or drug abuse patient.[facility] the event this information is protected by the Federal Confidentiality of Alcohol and Drug Abuse Patient Records regulations: The Federal rules restrict any use of the information to criminally investigate or prosecute any alcohol or drug abuse patient.[facility] the event this information is protected by the Federal Confidentiality of Alcohol and Drug Abuse Patient Records regulations: The Federal rules restrict any use of the information to criminally investigate or prosecute any alcohol or drug abuse patient.[facility] the event this information is protected by the Federal Confidentiality of Alcohol and Drug Abuse Patient Records regulations: The Federal rules restrict any use of the information to criminally investigate or prosecute any alcohol or drug abuse patient.[facility] the event this information is protected by the Federal Confidentiality of Alcohol and Drug Abuse Patient Records regulations: The Federal rules restrict any use of the information to criminally investigate or prosecute any alcohol or drug abuse patient.[facility] the event this information is protected by the Federal Confidentiality of Alcohol and Drug Abuse Patient Records regulations: The Federal rules restrict any use of the information to criminally investigate or prosecute any alcohol or drug abuse patient.[facility] the event this information is protected by the Federal Confidentiality of Alcohol and Drug Abuse Patient Records regulations: The Federal rules restrict any use of the information to criminally investigate or prosecute any alcohol or drug abuse patient.[facility] the event this information is protected by the Federal Confidentiality of Alcohol and Drug Abuse Patient Records regulations: The Federal rules restrict any use of the information to criminally investigate or prosecute any alcohol or drug abuse patient.[facility] the event this information is protected by the Federal Confidentiality of Alcohol and Drug Abuse Patient Records regulations: The Federal rules restrict any use of the information to criminally investigate or prosecute any alcohol or drug abuse patient.[facility] the event this information is protected by the Federal Confidentiality of Alcohol and Drug Abuse Patient Records regulations: The Federal rules restrict any use of the information to criminally investigate or prosecute any alcohol or drug abuse patient.[facility] the event this information is protected by the Federal Confidentiality of Alcohol and Drug Abuse Patient Records regulations: The Federal rules restrict any use of the information to criminally investigate or prosecute any alcohol or drug abuse patient.[facility] the event this information is protected by the Federal Confidentiality of Alcohol and Drug Abuse Patient Records regulations: The Federal rules restrict any use of the information to criminally investigate or prosecute any alcohol or drug abuse patient.[facility] the event this information is protected by the Federal Confidentiality of Alcohol and Drug Abuse Patient Records regulations: The Federal rules restrict any use of the information to criminally investigate or prosecute any alcohol or drug abuse patient.[facility] the event this information is protected by the Federal Confidentiality of Alcohol and Drug Abuse Patient Records regulations: The Federal rules restrict any use of the information to criminally investigate or prosecute any alcohol or drug abuse patient.[facility] HospitalIn the event this information is protected by the Federal Confidentiality of Alcohol and Drug Abuse Patient Records regulations: The Federal rules restrict any use of the information to criminally investigate or prosecute any alcohol or drug abuse patient.[facility] HospitalIn the event this information is protected by the Federal Confidentiality of Alcohol and Drug Abuse Patient Records regulations: The Federal rules restrict any use of the information to criminally investigate or prosecute any alcohol or drug abuse patient.[facility] HospitalIn the event this information is protected by the Federal Confidentiality of Alcohol and Drug Abuse Patient Records regulations: The Federal rules restrict any use of the information to criminally investigate or prosecute any alcohol or drug abuse patient.[facility] HospitalIn the event this information is protected by the Federal Confidentiality of Alcohol and Drug Abuse Patient Records regulations: The Federal rules restrict any use of the information to criminally investigate or prosecute any alcohol or drug abuse patient.[facility] HospitalIn the event this information is protected by the Federal Confidentiality of Alcohol and Drug Abuse Patient Records regulations: The Federal rules restrict any use of the information to criminally investigate or prosecute any alcohol or drug abuse patient.[facility] HospitalIn the event this information is protected by the Federal Confidentiality of Alcohol and Drug Abuse Patient Records regulations: The Federal rules restrict any use of the information to criminally investigate or prosecute any alcohol or drug abuse patient.[facility] HospitalIn the event this information is protected by the Federal Confidentiality of Alcohol and Drug Abuse Patient Records regulations: The Federal rules restrict any use of the information to criminally investigate or prosecute any alcohol or drug abuse patient.[facility] HospitalIn the event this information is protected by the Federal Confidentiality of Alcohol and Drug Abuse Patient Records regulations: The Federal rules restrict any use of the information to criminally investigate or prosecute any alcohol or drug abuse patient.[facility] HospitalIn the event this information is protected by the Federal Confidentiality of Alcohol and Drug Abuse Patient Records regulations: The Federal rules restrict any use of the information to criminally investigate or prosecute any alcohol or drug abuse patient.[facility] HospitalIn the event this information is protected by the Federal Confidentiality of Alcohol and Drug Abuse Patient Records regulations: The Federal rules restrict any use of the information to criminally investigate or prosecute any alcohol or drug abuse patient.[facility] HospitalIn the event this information is protected by the Federal Confidentiality of Alcohol and Drug Abuse Patient Records regulations: The Federal rules restrict any use of the information to criminally investigate or prosecute any alcohol or drug abuse patient.[facility] HospitalIn the event this information is protected by the Federal Confidentiality of Alcohol and Drug Abuse Patient Records regulations: The Federal rules restrict any use of the information to criminally investigate or prosecute any alcohol or drug abuse patient.[facility] HospitalIn the event this information is protected by the Federal Confidentiality of Alcohol and Drug Abuse Patient Records regulations: The Federal rules restrict any use of the information to criminally investigate or prosecute any alcohol or drug abuse patient.[facility] HospitalIn the event this information is protected by the Federal Confidentiality of Alcohol and Drug Abuse Patient Records regulations: The Federal rules restrict any use of the information to criminally investigate or prosecute any alcohol or drug abuse patient.[facility] HospitalIn the event this information is protected by the Federal Confidentiality of Alcohol and Drug Abuse Patient Records regulations: The Federal rules restrict any use of the information to criminally investigate or prosecute any alcohol or drug abuse patient.[facility] HospitalIn the event this information is protected by the Federal Confidentiality of Alcohol and Drug Abuse Patient Records regulations: The Federal rules restrict any use of the information to criminally investigate or prosecute any alcohol or drug abuse patient.[facility] HospitalIn the event this information is protected by the Federal Confidentiality of Alcohol and Drug Abuse Patient Records regulations: The Federal rules restrict any use of the information to criminally investigate or prosecute any alcohol or drug abuse patient.[facility] HospitalIn the event this information is protected by the Federal Confidentiality of Alcohol and Drug Abuse Patient Records regulations: The Federal rules restrict any use of the information to criminally investigate or prosecute any alcohol or drug abuse patient.[facility] HospitalIn the event this information is protected by the Federal Confidentiality of Alcohol and Drug Abuse Patient Records regulations: The Federal rules restrict any use of the information to criminally investigate or prosecute any alcohol or drug abuse patient.[facility] HospitalIn the event this information is protected by the Federal Confidentiality of Alcohol and Drug Abuse Patient Records regulations: The Federal rules restrict any use of the information to criminally investigate or prosecute any alcohol or drug abuse patient.[facility] HospitalIn the event this information is protected by the Federal Confidentiality of Alcohol and Drug Abuse Patient Records regulations: The Federal rules restrict any use of the information to criminally investigate or prosecute any alcohol or drug abuse patient.[facility] HospitalIn the event this information is protected by the Federal Confidentiality of Alcohol and Drug Abuse Patient Records regulations: The Federal rules restrict any use of the information to criminally investigate or prosecute any alcohol or drug abuse patient.[facility] HospitalIn the event this information is protected by the Federal Confidentiality of Alcohol and Drug Abuse Patient Records regulations: The Federal rules restrict any use of the information to criminally investigate or prosecute any alcohol or drug abuse patient.[facility] HospitalIn the event this information is protected by the Federal Confidentiality of Alcohol and Drug Abuse Patient Records regulations: The Federal rules restrict any use of the information to criminally investigate or prosecute any alcohol or drug abuse patient.[facility] Reason for Visit (unrecogniz ed section and content) Specialty Diagnoses / Procedures Referred By Contac t Referred To Contact US IMAGING Diagnoses Pelvic pain in female Procedures US FEMALE PELVIS TRANSVAG US TRANSVAGINAL Alyssa Cano, PREVENTIVE MEDICINE SPECIALIST.CONTRACT ASSISTANT [address] [place] [address] [place] [address] Referral ID Status Reason Start Date Expiration Date V isits Requested Visits Authorized [id number] Closed Auto-Generate d Referral 08/02/2022 09/01/2023 1 [...] NEW HIGH MDM 60-74 MINUTES Lia Reyes, PREVENTIVE MEDICINE SPECIALIST.CONTRACT ASSISTANT [id number] [place] [address] Referral ID Status Reason Start Date Expiration Date V isits Requested Visits Authorized [id number] Closed PCP Requested Referral 05/05/2022 05/05/2023 1 [...] OFFICE/OUTPATIENT NEW HIGH MDM 60-74 MINUTES [employer] APRN.CONTRACT ASSISTANT [address] [place] [address] Referral ID Status Reason Start Date Expiration Date V isits Requested Visits Authorized [id number] Closed PCP Requested Referral 08/04/2022 08/04/2023 1 [...] FEMALE PELVIS TRANSVAG US TRANSVAGINAL Alyssa Cano APRN.CONTRACT ASSISTANT [address] [place] [address] [place] [address] Referral ID Status Reason Start Date Expiration Date V isits Requested Visits Authorized [id number] Closed Auto-Generate d Referral 08/16/2022 09/15/2023 1 1 Specialty Diagnoses / Procedures Referred By Contac t Referred To Contact MR IMAGING Diagnoses Disorder of bone Procedures MRI WRIST WO IVCON RT MRI ANY JT UPPER EXTREMITY W/O CONTRAST MATRL Jose Hicks MD [address] [place] [address] [place] [address] Referral ID Status Reason Start Date Expiration Date V isits Requested Visits Authorized [id number] Closed Auto-Generate d Referral 07/27/2022 10/25/2022 1 1 Reason Comments outside Imaging Reason Comments Nausea diarrhea x 1 day Care Teams (unrecognized sec tion and content) 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 Relationship Specialty Start Date End Date Shaniqua Beckford MD [address] [place] [address] PCP - General Family Practice 01/28/21 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 Relationship Specialty Start Date End Date Shaniqua Beckford MD [address] [place] [id number] PCP - General Family Practice 01/28/21 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 Relationship Specialty Start Date End Date Shaniqua Beckford MD [address] [place] [address] PCP - General Family Practice 01/28/21 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 Relationship Specialty Start Date End Date Shaniqua Beckford MD [address] [place] [address] PCP - General Family Practice 01/28/21 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 Relationship Specialty Start Date End Date Shaniqua Beckford MD [address] [place] [address] PCP - General Family Practice 01/28/21 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 Relationship Specialty Start Date End Date Shaniqua Beckford MD [address] [place] [address] PCP - General Family Practice 01/28/21 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 Relationship Specialty Start Date End Date Shaniqua Beckford MD [address] [place] [address] PCP - General Family Practice 01/28/21 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 Relationship Specialty Start Date End Date Shaniqua Beckford MD [address] [facility] [place] [address] PCP - General Family Practice 01/28/21 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 Relationship Specialty Start Date End Date Shaniqua Beckford MD [address] [facility] [place] [address] PCP - General Family Practice 01/28/21 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 Relationship Specialty Start Date End Date Shaniqua Beckford MD [address] [place] [address], [place] [address] PCP - General Family Practice 01/28/21 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 Relationship Specialty Start Date End Date Shaniqua Beckford MD [employer] [facility] [place] [address] PCP - General Family Practice 01/28/21 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 Relationship Specialty Start Date End Date Shaniqua Beckford MD [address] [facility] [place] [address] PCP - General Family Medicine 01/28/21 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 Relationship Specialty Start Date End Date Shaniqua Beckford MD [address] [place] [address] PCP - General Family Medicine 01/28/21 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 Relationship Specialty Start Date End Date Shaniqua Beckford MD [address] [facility] [address] PCP - General Family Medicine 01/28/21 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 Relationship Specialty Start Date End Date Shaniqua Beckford MD [address] [facility] [place] [address] PCP - General Family Medicine 01/28/21 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 Relationship Specialty Start Date End Date Shaniqua Beckford MD [address] [facility] [place] [address] PCP - General Family Medicine 01/28/21 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 Relationship Specialty Start Date End Date Shaniqua Beckford MD [address] [facility] [place] [address] PCP - General Family Medicine 01/28/21 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 Relationship Specialty Start Date End Date Shaniqua Beckford MD [address] [facility] [place] [address] PCP - General Family Medicine 01/28/21 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 Relationship Specialty Start Date End Date Shaniqua Beckford MD [address] [facility] [place] [address] PCP - General Family Medicine 01/28/21 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 Relationship Specialty Start Date End Date Shaniqua Beckford MD [address] [facility] [place] [address] PCP - General Family Medicine 01/28/21 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 Relationship Specialty Start Date End Date Shaniqua Beckford MD [address] [facility] [place] [address] PCP - General Family Medicine 01/28/21 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 Relationship Specialty Start Date End Date Shaniqua Beckford MD [address] [facility] [place] [address] PCP - General Family Medicine 01/28/21 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 Relationship Specialty Start Date End Date Shaniqua Beckford MD [address] [facility] [place] [address] PCP - General Family Medicine 01/28/21 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 Relationship Specialty Start Date End Date Shaniqua Beckford MD [address] [facility] [place] [address] PCP - General Family Medicine 01/28/21 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 Relationship Specialty Start Date End Date Shaniqua Beckford MD [address] [facility] [place] [address] PCP - General Family Medicine 01/28/21 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 Relationship Specialty Start Date End Date Shaniqua Beckford MD [address] [facility] [place] [address] PCP - General Family Medicine 01/28/21 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 Relationship Specialty Start Date End Date Shaniqua Beckford MD [address] [place] [address] PCP - General Family Medicine 01/28/21 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 Relationship Specialty Start Date End Date Shaniqua Beckford MD [address] [place] [address] PCP - General Family Medicine 01/28/21 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 Relationship Specialty Start Date End Date Shaniqua Beckford MD [address] [place] [address] PCP - General Family Medicine 01/28/21 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 Relationship Specialty Start Date End Date Shaniqua Beckford MD [address] [place] [address] PCP - General Family Medicine 01/28/21 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 Relationship Specialty Start Date End Date Shaniqua Beckford MD [address] [facility] [place] [address] PCP - General Family Medicine 01/28/21 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 Relationship Specialty Start Date End Date hSaniqua Beckford MD [address] [facility] [place] [address] PCP - General Family Medicine 01/28/21 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 Relationship Specialty Start Date End Date Shaniqua Beckford MD [address] [facility] [place] [address] PCP - General Family Medicine 01/28/21 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 Relationship Specialty Start Date End Date Shaniqua Beckford MD [address] [facility] [place] [address] PCP - General [facility] 01/28/21 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 Relationship Specialty Start Date End Date Shaniqua Beckford MD [address] [facility] [place] [address] PCP - General [facility] 01/28/21 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 Relationship Specialty Start Date End Date Shaniqua Beckford MD [address] [facility] [place] [address] PCP - General [facility] 01/28/21 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 Relationship Specialty Start Date End Date Shaniqua Beckford MD [address] [facility] [place] [address] PCP - General Family Medicine 01/28/21 FOR [...] BE BASED ON THE PRIMARY CLINICAL RECORDS. [facility]. provides no warranty or guarantee of the accuracy or completeness of information in this document.
== END 2023-10-10 15:15 | disposition home or self-care (01) ==
PROVIDERS: Emergency Provider Emergency Medicine; PCP Family Medicine; Visit Provider Emergency Medicine
DX: S60.424A Blister (nonthermal) of right ring finger, initial encounter (principal); F17.210 Nicotine dependence, cigarettes, uncomplicated; Z90.710 Acquired absence of both cervix and uterus; X58.XXXA Exposure to other specified factors, initial encounter
CPT/HCPCS: 10060; 99282

== ENCOUNTER 2023-12-17 12:29 | Emergency (ER) | payer MEDICAID, SELFPAY ==
[2023-12-17 12:30] VITALS: BP 99/74; PULSE 76; RESP 16; TEMP 36.7; O2SAT 98; BMI 34.6
--- NOTE | 2023-12-17 13:11 | EDS_ITS ---
HPI History of Present Illness HPI Narrative: Patient presents with bilateral heel pain, worse on the right. Patient states that this has been getting progressively worse over the past 4 days. Patient states it came on gradually. Patient denies any trauma or injury. Patient states the pain is stabbing. Patient states the pain is worse with weightbearing. Patient states she works 11-hour shifts and stands on her feet for her entire shift. Patient states nothing seems to help her pain. Patient denies any paresthesias or weakness. Chief Complaint: Other, Pain/Inj Informant: patient Onset/Context/Timing Onset: Days (4) Context: Gradual Onset Timing: Continuous Quality of Pain: Stabbing Location: Bilateral heels, worse on the right Worsened by: Weightbearing Relieved by: Nothing Associated Symptoms Associated Symptoms: Negative for Parasthesia, Weakness or Loss of Funtion PFSH PFSH Medical History Kidney disease Kidney stones Pneumonia Smoker Wheezes no medical history Home Medications omeprazole 40 mg capsule,delayed release 40 mg PO DAILY 12/09/21 [History Last Taken Unknown] azelastine 137 mcg (0.1 %) nasal spray aerosol 2 spray intranasal BID #30 mL 10/23/22 [Rx Last Taken Unknown] doxycycline monohydrate 100 mg capsule 100 mg PO BID #20 CAPSULES 10/23/22 [Rx Last Taken Unknown] promethazine 6.25 mg-codeine 10 mg/5 mL syrup 5 ml PO 4X/DAY PRN PRN cough 7 days #140 mL 10/23/22 [Rx Last Taken Unknown] albuterol sulfate 90 mcg/actuation aerosol inhaler (Ventolin HFA) 1 - 2 puff inhalation Q4H PRN PRN Wheezing #1 device 04/04/23 [Rx Last Taken Unknown] albuterol sulfate 90 mcg/actuation aerosol inhaler (Ventolin HFA) 1 - 2 puff inhalation Q4H PRN PRN Wheezing #8.5 grams 06/01/23 [Rx Last Taken Unknown] prednisone 50 mg tablet 50 mg PO DAILY #5 tabs 06/01/23 [Rx Last Taken Unknown] oxycodone-acetaminophen 5 mg-325 mg tablet (Percocet) 1 tab PO Q8H PRN pain 3 days #10 tabs 08/06/23 [Rx Last Taken Unknown] albuterol sulfate 90 mcg/actuation aerosol inhaler (Ventolin HFA) 2 puff inhalation Q4H PRN PRN Wheezing ##1 10/03/23 [Rx Last Taken Unknown] prednisone 20 mg tablet 60 mg (3 x 20 mg) PO DAILY #12 TABLETS 10/03/23 [Rx Last Taken Unknown] cephalexin 500 mg capsule 500 mg PO TID #21 CAPSULES 10/10/23 [Rx Last Taken Unknown] naproxen 500 mg tablet 500 mg PO BID PRN #20 tabs 12/17/23 [Rx Last Taken Unknown] Allergy/AdvReac Type Severity Reaction Status Date / Time hydrocodone bitartrate Allergy Hives Verified 12/17/23 12:31 [From [facility]] Family History Other Heart disease Surgical History History of hysterectomy no surgical history Social History household members: none Smoking Status: Current every day smoker tobacco type: cigarettes alcohol intake: current alcohol intake frequency: other substance use type: does not use ROS ROS ED Constitutional Constitutional ED: Denies chills or fever(s) Eyes Eyes: Denies blurry vision or change in vision ENT ENT ED: Denies rhinorrhea or sore throat Cardiovascular Cardiovascular: Denies chest pain or palpitations Respiratory/Chest Respiratory/Chest: Denies cough or dyspnea Gastrointestinal Gastrointestinal: Denies nausea or vomiting Genitourinary Genitourinary ED: Denies dysuria or hematuria Musculoskeletal Musculoskeletal: Denies back pain or neck pain Integumentary Denies abscess or rash Neurologic Neurologic: Denies headache(s) or weakness Allergic/Immunologic Allergic/Immunologic ED: Denies mouth swelling or urticaria EXAM Physical Exam Const Vital Signs: 12/17/23 12:30 Temperature 98.1 F Temperature Source Temporal Pulse Rate 76 Respiratory Rate 16 Blood Pressure 99/74 Blood Pressure Mean 82 Pulse Ox 98 Oxygen Delivery Method Room Air Positive well nourished, well developed and obese General Appearance ED: well developed and NAD Nutritional Appearance: obese HEENT Reports moist mucous membranes Neck full ROM and supple Extremity Extremity Narrative: There is tenderness to palpation over the plantar aspect of the heels bilaterally, worse on the right. There are some mild edema. There is no ecchymosis. There is no bony crepitance or step-off noted. There is no tender ness over the Achilles tendon. Pedal pulses are equal bilateral. Sensation was intact to light touch bilaterally in the lower extremities. Strength is 5/5 bilaterally in the lower extremities. Neuro oriented x3, CN's II-XII intact bilaterally, moves all extremities and no sensory deficits noted Sensorium / Orientation: alert Motor Exam: strength 5/5 throughout Psych mental status grossly normal MDM MDM MDM Narrative Medical decision making narrative: Differential diagnosis includes plantar fasciitis, calcaneal spur, arthritis, and occult fracture. X-rays of the right ankle will be obtained to assess for occult fracture and bone spur. Radiography Diagnostic Testing: Clinical Impression(s) from Imaging Studies Foot X-Ray 12/17/23 13:25 IMPRESSION: No evidence of acute fracture or dislocation. Possible small foreign body in the soft tissues of the third distal phalanx. Electronically Signed: Dayday Brandon MD at 13:55 EDT , X-rays of the right foot were obtained. There are 3 views. On my independent interpretation, there is no acute fracture or dislocation noted. Radiologist also interpreted the x-rays and noted a possible small foreign body in the soft tissues of the distal phalanx of the third toe. Treatment and Re-Evaluation Narrative: The patient was advised of her findings. Patient was advised that this is most likely plantar fasciitis. Patient was instructed to do stretching exercises. Patient was given a prescription for Naprosyn. Patient was instructed to follow-up with her primary care physician in 5 to 7 days. Patient also states she has an appoint with orthopedics coming up. Patient was instructed to follow-up with this appointment as well. Patient understood and was agreeable with the plan. All questions were answered. Discharge Plan Triage Chief Complaint: Other, Pain/Inj ED Provider: Vinay Villa Dx/Rx/DC Orders Clinical Impression: Plantar fasciitis of right foot, Plantar fasciitis of left foot Instructions: ED Plantar Fasciitis Prescriptions: New naproxen 500 mg tablet 500 mg PO BID PRN Qty: 20 0RF No Action omeprazole 40 mg capsule,delayed release(DR/EC) 40 mg PO DAILY doxycycline monohydrate 100 mg capsule 100 mg PO BID Qty: 20 0RF azelastine 137 mcg (0.1 %) aerosol,spray 2 spray intranasal BID Qty: 30 0RF Rx Instructions: administer into each nostril promethazine-codeine 6.25-10 mg/5 mL syrup 5 ml PO 4X/DAY PRN PRN (Reason: cough) 7 Days Qty: 140 0RF albuterol sulfate [Ventolin HFA] 90 mcg/actuation HFA aerosol inhaler 1 - 2 puff inhalation Q4H PRN PRN (Reason: Wheezing) Qty: 1 0RF prednisone 20 mg tablet 60 mg PO DAILY Qty: 12 0RF albuterol sulfate [Ventolin HFA] 90 mcg/actuation HFA aerosol inhaler 2 puff inhalation Q4H PRN PRN (Reason: Wheezing) Qty: 1 0RF cephalexin [cephalexin] 500 mg capsule 500 mg PO TID Qty: 21 0RF prednisone 50 mg tablet 50 mg PO DAILY Qty: 5 0RF albuterol sulfate [Ventolin HFA] 90 mcg/actuation HFA aerosol inhaler 1 - 2 puff inhalation Q4H PRN PRN (Reason: Wheezing) Qty: 8.5 0RF oxycodone-acetaminophen [Percocet] 5-325 mg tablet 1 tab PO Q8H PRN (Reason: pain) 3 Days Qty: 10 0RF Primary Care Provider: Ian Mon Referrals: Ian Mon MD [Primary Care Provider] - 5-7 Days Disposition Disposition: Home, Self Care
--- NOTE | 2023-12-17 13:25 | RAD_ITS ---
INDICATION: Injury/Pain EXAMINATION/TECHNIQUE: X-RAY - RIGHT XR Foot Min 3 Views 3 VIEWS COMPARISON: No relevant prior comparison study available FINDINGS: SOFT TISSUES: No soft tissue swelling or gas. Small calcific density in the soft tissues of the distal phalanx of the third toe. Small foreign body cannot be excluded. BONES/JOINTS: No evidence of acute fracture or dislocation. Normal alignment. Preservation of the joint space.. No sclerotic or destructive changes observed. RAD/Foot min 3 Views IMPRESSION: No evidence of acute fracture or dislocation. Possible small foreign body in the soft tissues of the third distal phalanx. Electronically Signed: Dayday Brandon MD at 13:55 EDT ,
[2023-12-17] MEDS: Ketorolac 60 MG/2 ML Vial IM (13:29)
== END 2023-12-17 15:31 | disposition home or self-care (01) ==
PROVIDERS: Emergency Provider Emergency Medicine; PCP Family Medicine; Visit Provider Emergency Medicine
DX: M72.2 Plantar fascial fibromatosis (principal); F17.210 Nicotine dependence, cigarettes, uncomplicated; Z90.710 Acquired absence of both cervix and uterus; X58.XXXA Exposure to other specified factors, initial encounter; Y92.89 Other specified places as the place of occurrence of the external cause
CPT/HCPCS: 73630; 96372; 99282

== ENCOUNTER 2024-06-08 14:12 | Emergency (ER) | payer SELFPAY ==
[2024-06-08 14:12] VITALS: BP 109/79; PULSE 94; RESP 16; TEMP 36.4; O2SAT 93; BMI 34.9
--- NOTE | 2024-06-08 14:28 | CT_ITS ---
STUDY: CT ABDOMEN AND PELVIS WITH CONTRAST - URINARY TRACT REASON FOR EXAM: Female, 39 years old abdominal pain RADIATION DOSAGE (If Supplied By Facility): CTDIvol = ( 15.08 ) mGy, DLP = ( 918.02 ) mGycm TECHNIQUE: IV 100mL Isovue-370 was administered. Transaxial images were obtained from the dome of the diaphragm to the symphysis pubis subsequent to intravenous contrast administration. In the arterial, nephrographic and excretory phases. Multiplanar coronal and sagittal images were reformatted. The protocol utilizes one or more of the following dose reduction techniques: automated exposure control, adjustment of mA and/or kV according to patient size,and/or use of iterative reconstruction technique. COMPARISON: November 09, 2015 FINDINGS: The visualized lung bases are unremarkable. The visualized portions of the heart are within normal limits. There is decreased attenuation of the liver consistent with steatosis. There is hepatomegaly. Normal gallbladder and extrahepatic biliary system. Normal spleen. Normal pancreas. Normal bilateral adrenal glands. Normal visualized stomach. Normal small intestine. Normal colon. The appendix is visualized and appears normal. Normal abdominal aorta. No retroperitoneal adenopathy. Normal right kidney. Normal left kidney. Normal urinary bladder. There is a small fat-containing supraumbilical ventral hernia. There is a stable sclerotic focus within the T11 vertebra may reflect a bone island. There are mild degenerative changes of the lumbar spine. CT/Abdomen/Pelvis W IV Cont ONLY IMPRESSION: Fatty infiltration of the liver associated with hepatomegaly. Electronically Signed: Idania Thomas MD at 15:05 EDT ,
--- NOTE | 2024-06-08 14:29 | ED.VIS.GI ---
HPI HPI - GI History of Present Illness Chief Complaint: Abd Pain Informant: patient Abdominal Pain/Flank Pain Onset: Days Context: Gradual Onset Timing: Intermittent Quality: Dull Location: See Diagram (Periumbilical pain) Current Severity: Mild Maximum Severity: Mild Worsened by: Nothing Relieved by: Nothing Nausea/Vomiting/Emesis GI Symptom: Positive for Nausea; Negative for Vomiting Severity: Mild Diarrhea/Melena/Hematochezia GI Symptom: Negative for Diarrhea, Melena or Hematochezia Associated Symptoms Associated Symptoms: Negative for Dysuria, Frequency, Hematuria or Urgency Narrative Narrative: 39-year-old female history of prior kidney stone umbilical hernia and hysterectomy with 1 ovary removed. States she has had abdominal pain, left flank and periumbilical since Tuesday. She thought her abdomen looks swollen. Associated nausea but no vomiting or diarrhea. No dysuria or fever. No weight change that she is aware of. Nothing particular makes it better or worse. Denies any abdominal trauma. Prior similar symptoms: No Recent Illness/Hospitalization: No PFSH PFS Medical History Pneumonia Kidney disease Kidney stones Smoker Wheezes Home Medications ?Medication ?Instructions ?Recorded ?Last Taken ?Type omeprazole 40 mg capsule,delayed 40 mg PO DAILY 12/09/21 Unknown History release azelastine 137 mcg (0.1 %) nasal 2 spray intranasal BID #30 mL 10/23/22 Unknown Rx spray doxycycline monohydrate 100 mg 100 mg PO BID #20 CAPSULES 10/23/22 Unknown Rx capsule promethazine 6.25 mg-codeine 10 5 ml PO 4X/DAY PRN PRN cough 7 10/23/22 Unknown Rx mg/5 mL syrup days #140 mL albuterol sulfate 90 mcg/actuation 1 - 2 puff inhalation Q4H PRN PRN 04/04/23 Unknown Rx aerosol inhaler (Ventolin HFA) Wheezing #1 device albuterol sulfate 90 mcg/actuation 1 - 2 puff inhalation Q4H PRN PRN 06/01/23 Unknown Rx aerosol inhaler (Ventolin HFA) Wheezing #8.5 grams prednisone 50 mg tablet 50 mg PO DAILY #5 tabs 06/01/23 Unknown Rx oxycodone-acetaminophen 5 mg-325 1 tab PO Q8H PRN pain 3 days #10 08/06/23 Unknown Rx mg tablet (Percocet) tabs albuterol sulfate 90 mcg/actuation 2 puff inhalation Q4H PRN PRN 10/03/23 Unknown Rx aerosol inhaler (Ventolin HFA) Wheezing ##1 prednisone 20 mg tablet 60 mg (3 x 20 mg) PO DAILY #12 10/03/23 Unknown Rx TABLETS cephalexin 500 mg capsule 500 mg PO TID #21 CAPSULES 10/10/23 Unknown Rx naproxen 500 mg tablet 500 mg PO BID PRN #20 tabs 12/17/23 Unknown Rx Allergy/AdvReac Type Severity Reaction Status Date / Time hydrocodone bitartrate (From Allergy Hives Verified 06/08/24 14:15 [place]) Family History Other Heart disease Surgical History History of hysterectomy Social History household members: none Smoking Status: Current every day smoker tobacco type: cigarettes alcohol intake: current alcohol intake frequency: other substance use type: does not use ROS ROS ED ROS Narrative Abdominal pain. Nausea. No vomiting or diarrhea. No dysuria or fever. No weight change. Constitutional Constitutional ED: Denies chills or fever(s) ENT ENT ED: Denies ear pain Cardiovascular Cardiovascular: Denies chest pain Respiratory/Chest Respiratory/Chest: Denies cough or dyspnea Gastrointestinal Gastrointestinal: Reports abdominal pain and nausea; Denies constipation, diarrhea, melena or vomiting Genitourinary Genitourinary ED: Denies dysuria, hematuria or urinary frequency Musculoskeletal Musculoskeletal: Denies arthralgias Integumentary Denies abscess Neurologic Neurologic: Denies headache(s) Psychiatric Psychiatric: Denies anxiety Endocrine Endocrinology: Denies polydipsia Hematologic/Lymphatic Hematologic/Lymphatic: Denies easy bleeding Allergic/Immunologic Allergic/Immunologic ED: Denies mouth swelling EXAM Physical Exam Narrative Exam Narrative: Well-appearing 39-year-old female. Sitting upright in bed. Vital signs stable afebrile. H EENT exam unremarkable. Neck nontender no JVD. Lungs clear to auscultation bilaterally. Heart regular rate and rhythm rate about 90 no murmur. Chest wall ribs nontender. Abdomen soft nondistended normal bowel sounds without any peritoneal signs. Very mild periumbilical abdominal tenderness. No right upper or right lower quadrant tenderness. No hernia or mass. No distention or obstruction. No bruising. Moving all 4 extremities. Nontender no edema. Normal strength. Back nontender. She is awake and alert. No focal motor deficits. Answering questions and following commands. Const Vital Signs: 06/08/24 14:12 Temperature 97.5 F L Temperature Source Temporal Pulse Rate 94 Respiratory Rate 16 Blood Pressure 109/79 Blood Pressure Mean 89 Pulse Ox 93 Positive well nourished and well developed; Negative for cachectic, contractures or unkempt General Appearance ED: well developed and NAD; Negative for unkempt, cachectic, contractures or pallor Nutritional Appearance: Negative for cachectic HEENT Reports moist mucous membranes; Denies dry mucous membranes normocephalic and atraumatic; Negative for trauma or tenderness Mouth ED: No dry mucous membranes Mouth: No dry mucous membranes Eyes PERRL and EOMs intact bilaterally General Eye ED: Negative for pale conjunctiva or scleral icterus Neck no lymphadenopathy, supple and no JVD General: Negative for tenderness Carotids: Negative for other Lymph Lymphatic: Negative for other Resp normal respiratory effort and clear to auscultation bilaterally Effort and Inspection: Negative for respiratory distress Auscultation: Negative for rales, rhonchi, wheezes or diminished lung sounds Cardio regular rate, regular rhythm, S1 normal heart sound, S2 normal heart sound and no murmurs Rate: Negative for bradycardia or tachycardic Rhythm: Negative for abnormal rhythm GI non-distended and no masses; Negative for non-tender GI Narrative: Very mild periumbilical tenderness. No McBurney's point or Shetty sign tenderness. No distention. No pulsatile mass. No obstruction. Inspection: Negative for abdominal distention Auscultation: normoactive bowel sounds Palpation: soft and tender; Negative for guarding, rigid, hepatomegaly, splenomegaly, hernia, mass, pulsatile mass or rebound tenderness present Back/Spine no CVA tenderness General Back: Negative for CVA tenderness Cervical Spine: Negative for cervical spine tenderness Thoracic Spine / Upper Back: Negative for thoracic spinal tenderness Lumbar Spine / Lower Back: Negative for lumbar spinal tenderness Coccyx: Negative for other Extremity full ROM General Extremety ED: Negative for edema, tenderness or other findings General Extremity: Negative for edema or other findings Neuro CN's II-XII intact bilaterally, moves all extremities and no sensory deficits noted Sensorium / Orientation: alert, oriented to person, oriented to place and oriented to time; Negative for orientation impaired, confused, lethargic or stuporous Sensory Exam: No sensory level loss detected Motor Exam: strength 5/5 throughout; Negative for general weakness or strength abnormal Psych mental status grossly normal and thought process normal Appearance: Negative for unkempt Attitude: No agitated Mood & Affect: Negative for depressed, anxious or tearful Skin no wounds General Skin Exam: Negative for jaundice or pallor Lesions: no lesions and No lesion noted Rashes: no rashes and No rashes noted Nails: Negative for discolored MDM MDM MDM Narrative Medical decision making narrative: 39-year-old female with mild abdominal discomfort with a very benign exam. CAT scan labs are pending. She having no urinary symptoms. No fever. She is moving her bowels. Exam cardona insignificant obstruction. It also did not appear to be her gallbladder or her appendix. She has had a prior hysterectomy and with 1 remaining ovary. She be given some Zofran for nausea. She does not anything currently for pain. Repeat exam at 3:15 PM patient doing well. Abdomen benign. We discussed her test results. She has a small umbilical hernia. She is comfortable being discharged home. patient be discharged to home. History & Record Review Discussion w/independent historian: Patient Additional record(s) reviewed:: Prior inpatient record, Prior outpatient record, Prior ED visit and Prior labs Lab Data Attestation: I reviewed the patient's lab results. Lab results narrative: CBC shows a white count 12.2. H&H 14 and 43. Platelets 272. Electrolytes show gap 5. Normal BUN and creatinine of 13 and 0.6. Glucose 94. Liver enzymes normal. Lipase normal at 38. Urinalysis shows 250 occult blood no nitrites. Involved red cells no white cells 1+ bacteria. No urinary symptoms. Labs: Laboratory Results - last 24 hr 06/08/24 06/08/24 14:35 14:39 WBC 12.2 H RBC 5.04 Hgb 14.4 Hct 43.5 MCV 86.3 MCH 28.6 MCHC 33.1 RDW Std Deviation 40.2 RDW Coeff of Raeann 12.9 Plt Count 272 MPV 10.7 Immature Gran % (Auto) 0.700 Neut % (Auto) 52.5 Lymph % (Auto) 33.8 Early % (Auto) 5.7 Eos % (Auto) 6.5 H Baso % (Auto) 0.8 Absolute Neuts (auto) 6.4 Absolute Lymphs (auto) 4.13 Nucleated RBC % 0 Atypical Lymphocytes 1+ Sodium 140 Potassium 3.6 Chloride 109 H Carbon Dioxide 26.0 Anion Gap 5 BUN 13 Creatinine 0.69 Estim Creat Clear Calc 102.45 Est GFR (MDRD) Af Amer 122 Est GFR (MDRD) Non-Af 101 BUN/Creatinine Ratio 18.8 Glucose 94 Calcium 8.8 Total Bilirubin 0.60 AST 15 ALT 23 Alkaline Phosphatase 41 L Total Protein 6.9 Albumin 3.7 Globulin 3.2 Albumin/Globulin Ratio 1.2 Lipase 38 Urine Color Yellow Urine Clarity Sl. Cloudy Urine pH 6.0 Ur Specific [place] 1.020 Urine Protein 15 H Urine Glucose (UA) Normal Urine Ketones Negative Urine Occult Blood 250 H Urine Nitrite Negative Urine Bilirubin Negative Urine Urobilinogen Normal Ur Leukocyte Esterase Negative Urine RBC 10-25 SEEN Urine WBC 0 SEEN Ur Squamous Epith Cells 0-5 SEEN Urine Bacteria 1+ Urine Mucus 1+ Radiography Diagnostic Testing: Clinical Impression(s) from Imaging Studies Abdomen/Pelvis CT 06/08/24 14:28 IMPRESSION: Fatty infiltration of the liver associated with hepatomegaly. Electronically Signed: Idania Thomas MD at 15:05 EDT , Discharge Plan Triage Chief Complaint: Abd Pain ED Provider: Armen Grace Dx/Rx/DC Orders Clinical Impression: Abdominal pain Instructions: Abdominal Pain Prescriptions: No Action omeprazole 40 mg capsule,delayed release(DR/EC) 40 mg PO DAILY doxycycline monohydrate 100 mg capsule 100 mg PO BID Qty: 20 0RF azelastine 137 mcg (0.1 %) aerosol,spray 2 spray intranasal BID Qty: 30 0RF Rx Instructions: administer into each nostril promethazine-codeine 6.25-10 mg/5 mL syrup 5 ml PO 4X/DAY PRN PRN (Reason: cough) 7 Days Qty: 140 0RF albuterol sulfate [Ventolin HFA] 90 mcg/actuation HFA aerosol inhaler 1 - 2 puff inhalation Q4H PRN PRN (Reason: Wheezing) Qty: 1 0RF prednisone 20 mg tablet 60 mg PO DAILY Qty: 12 0RF albuterol sulfate [Ventolin HFA] 90 mcg/actuation HFA aerosol inhaler 2 puff inhalation Q4H PRN PRN (Reason: Wheezing) Qty: 1 0RF cephalexin [cephalexin] 500 mg capsule 500 mg PO TID Qty: 21 0RF prednisone 50 mg tablet 50 mg PO DAILY Qty: 5 0RF albuterol sulfate [Ventolin HFA] 90 mcg/actuation HFA aerosol inhaler 1 - 2 puff inhalation Q4H PRN PRN (Reason: Wheezing) Qty: 8.5 0RF oxycodone-acetaminophen [Percocet] 5-325 mg tablet 1 tab PO Q8H PRN (Reason: pain) 3 Days Qty: 10 0RF naproxen 500 mg tablet 500 mg PO BID PRN Qty: 20 0RF Primary Care Provider: Ian Mon Referrals: Ian Mon MD [Primary Care Provider] - As Needed Activity Restrictions/Additional Instructions: Tylenol and/or Motrin for any pain. You have a small hernia on your CAT scan by your bellybutton. I do not need to do anything with that immediately but eventually it may need repaired. Print Language: [place] Islander Disposition Disposition: Home, Self Care
[2024-06-08] MEDS: Ondansetron 4 MG/2 ML Vial IV (14:38)
[2024-06-08 14:45] LABS: White Blood Cells 0 SEEN /hpf (0-5)
[2024-06-08 14:48] LABS: Color, Urine Yellow (Yellow); Glucose, Dipstick Normal (Normal); Ketone-Dipstick Negative (Negative); Leukocyte Esterase-Dipstick Negative /ul (Negative); Nitrite-Dipstick Negative (Negative); Occult Blood-Urine 250 /ul (Negative); Protein-Dipstick 15 mg/dl (Negative); Urine Bilirubin Dipstick Negative (Negative); Urine Clarity Sl. Cloudy (Clear); Urine Urobilinogen Normal (Normal)
[2024-06-08 14:50] LABS: Absolute Lymphocyte Count 4.13 X10^3/uL (0.83-4.51); Absolute Neutrophil Count 6.4 X10^3/uL (2.0-7.7); Basophil% 0.8 % (0-1); Eosinophils% 6.5 % (0-5); Hematocrit 43.5 % (37-47); Hemoglobin 14.4 g/dL (12.0-15.0); Lymphocyte # 4.13 X10^3/ul (0.83-4.51); Lymphocyte % 33.8 % (19-41); Mean Corp Hgb Conc 33.1 g/dL (32-36); Mean Corpuscular Hgb 28.6 pg (27.0-32.0); Mean Corpuscular Volume 86.3 fL (81-99); Mean Platelet Vol. 10.7 fl (6.2-12.0); Monocyte% 5.7 % (0-10); NRBC Flagged by Analyzer 0 % (0-5); Neutrophil # 6.42 X10^3/uL (2.7-7.7); Neutrophil % 52.5 % (47-70); POSITIVE MORPHOLOGY YES; Platelet Count 272 K/mm3 (150-450); RBC Distribution Width CV 12.9 % (11.6-14.6); RBC Distribution Width SD 40.2 fl (35.1-43.9); Red Blood Count 5.04 M/mm3 (4.2-5.4); White Blood Count 12.2 K/mm3 (4.4-11.0)
[2024-06-08 14:52] LABS: Differential Indicated SCAN CRITERIA MET
[2024-06-08 15:03] LABS: ALB/GLOB Ratio 1.2 RATIO (0.9-2.4); AST(SGOT) 15 U/L (15-37); Alanine Aminotransfer ALT/SGPT 23 U/L (13-56); Albumin, Serum 3.7 g/dL (3.2-5.0); Alkaline Phosphatase 41 U/L (45-117); Anion Gap 5 (5-15); BUN 13 mg/dL (7-18); BUN/Creat Ratio 18.8 RATIO (10-20); Calcium,Total 8.8 mg/dL (8.5-10.1); Chloride 109 mmol/L (98-107); Creatinine, Serum 0.69 mg/dL (0.55-1.02); EST Glomerular Filtration Rate 101 mL/min (>60); Est Glom Filt Rate - Afr Amer 122 mL/min (>60); Estimated Creatinine Clearance 102.45 ml/min; Globulin 3.2 g/dL (2.2-4.2); Glucose 94 mg/dL (74-106); Lipase 38 U/L (13-75); Potassium 3.6 mmol/L (3.5-5.1); Protein, Total 6.9 g/dL (6.4-8.2); Sodium Level 140 mmol/L (136-145)
[2024-06-08 15:10] LABS: Atypical Lymphocyte 1+ %
[2024-06-08 15:17] LABS: Red Blood Cells-Urine 10-25 SEEN /hpf (0-5)
[2024-06-08 15:18] LABS: Bacteria 1+ /hpf (None Seen); Squamous Epithelial Cells - UA 0-5 SEEN /hpf (5-10)
[2024-06-08 15:19] LABS: Mucous, Urine 1+ /hpf (<or=2+)
[2024-06-08 15:24] VITALS: BP 122/78; PULSE 98; RESP 17; TEMP 36.6; O2SAT 99
== END 2024-06-08 15:39 | disposition home or self-care (01) ==
PROVIDERS: Emergency Provider Emergency Medicine; PCP Family Medicine; Visit Provider Emergency Medicine
DX: R10.9 Unspecified abdominal pain (principal); K42.9 Umbilical hernia without obstruction or gangrene; F17.200 Nicotine dependence, unspecified, uncomplicated; Z87.442 Personal history of urinary calculi; Z90.710 Acquired absence of both cervix and uterus; R11.0 Nausea
CPT/HCPCS: 74177; 80053; 81001; 83690; 85025; 96374; 99282; A4216; J2405

== ENCOUNTER 2024-09-28 12:10 | Emergency (ER) | payer MEDICAID, SELFPAY ==
[2024-09-28 12:10] VITALS: BP 134/85; PULSE 94; RESP 15; TEMP 36.1; O2SAT 100
[2024-09-28 12:17] VITALS: BMI 35.8
--- NOTE | 2024-09-28 12:18 | RAD_ITS ---
HISTORY: pain after fall. TECHNIQUE: XR Spine Thoracic 3 Views. COMPARISON: None. FINDINGS: VERTEBRAE: Vertebral body heights maintained. No acute fracture identified. Small T11 vertebral body bone island incidentally noted. ALIGNMENT: No significant anterior or posterior subluxation. INTERVERTEBRAL DISCS: Preservation of intervertebral disc spaces. SOFT TISSUES: Unremarkable paraspinal soft tissues. RAD/Thoracic Spine 3 Views IMPRESSION: No acute fracture or dislocation identified in the thoracic spine. Electronically Signed: Rachele Fernandez MD at 12:56 EST ,
--- NOTE | 2024-09-28 12:24 | ED.VIS.FALL ---
HPI <MENDY Gallegos - Last Filed: 09/28/24 13:15> HPI - Fall History of Present Illness Chief Complaint: Fall Narrative Narrative: 39-year-old female slipped on icy steps today landing on her mid back. She was able to get up and is ambulatory but presents due to thoracic back pain. She states she got new gym shoes and is slipped a total of 4 times this week on the ice. She denies ever hitting her head or losing consciousness. She states her neck feels stiff with movement but she denies hitting her neck. She has no pain in her upper or lower extremities. She is not on blood thinners [facility] <MENDY Gallegos - Last Filed: 09/28/24 13:15> [facility] Medical History Pneumonia Kidney disease Kidney stones Smoker Wheezes Home Medications ?Medication ?Instructions ?Recorded ?Last Taken ?Type omeprazole 40 mg capsule,delayed 40 mg PO DAILY 12/09/21 Unknown History release azelastine 137 mcg (0.1 %) nasal 2 spray intranasal BID #30 mL 10/23/22 Unknown Rx spray doxycycline monohydrate 100 mg 100 mg PO BID #20 CAPSULES 10/23/22 Unknown Rx capsule promethazine 6.25 mg-codeine 10 5 ml PO 4X/DAY PRN PRN cough 7 10/23/22 Unknown Rx mg/5 mL syrup days #140 mL albuterol sulfate 90 mcg/actuation 1 - 2 puff inhalation Q4H PRN PRN 04/04/23 Unknown Rx aerosol inhaler (Ventolin HFA) Wheezing #1 device albuterol sulfate 90 mcg/actuation 1 - 2 puff inhalation Q4H PRN PRN 06/01/23 Unknown Rx aerosol inhaler (Ventolin HFA) Wheezing #8.5 grams prednisone 50 mg tablet 50 mg PO DAILY #5 tabs 06/01/23 Unknown Rx oxycodone-acetaminophen 5 mg-325 1 tab PO Q8H PRN pain 3 days #10 08/06/23 Unknown Rx mg tablet (Percocet) tabs albuterol sulfate 90 mcg/actuation 2 puff inhalation Q4H PRN PRN 10/03/23 Unknown Rx aerosol inhaler (Ventolin HFA) Wheezing ##1 prednisone 20 mg tablet 60 mg (3 x 20 mg) PO DAILY #12 10/03/23 Unknown Rx TABLETS cephalexin 500 mg capsule 500 mg PO TID #21 CAPSULES 10/10/23 Unknown Rx naproxen 500 mg tablet 500 mg PO BID PRN #20 tabs 12/17/23 Unknown Rx Allergy/AdvReac Type Severity Reaction Status Date / Time hydrocodone bitartrate (From Allergy Hives Verified 09/28/24 12:10 [place]) Family History Other Heart disease Surgical History History of hysterectomy Social History household members: none Smoking Status: Current every day smoker tobacco type: cigarettes alcohol intake: current alcohol intake frequency: other substance use type: does not use ROS <MENDY Gallegos - Last Filed: 09/28/24 13:15> ROS ED ROS Narrative CVS: Negative for chest pain. Respiratory: Negative for shortness of breath. GI: Negative for abdominal pain, nausea, vomiting. Neuro: Negative for headache. Musc: Negative for joint pain, swelling, trauma. EXAM <MENDY Gallegos - Last Filed: 09/28/24 13:15> Physical Exam Narrative Exam Narrative: CONST: Patient sitting in no acute distress. EYES: Normal inspection. HEAD: Normocephalic atraumatic, no raccoon eyes or Lenz sign, no nasal septal hematoma or epistaxis, no hemotympanum, no CSF otorrhea or rhinorrhea. NECK: Normal inspection. No midline tenderness or step-offs. Tender over right trapezius. RESP: No respiratory distress, CTAB. Chest wall nontender. CVS: Regular rate and rhythm, no murmur, no gallop. ABD: Soft and nontender, no guarding or rebound.. Back: Normal inspection with no signs of external trauma. Tender diffusely over thoracic spine without step-offs. No tenderness of cervical or lumbar spine. No crepitus. SKIN: Color normal, no rash, warm, dry, intact. EXTREMITIES: Normal appearance, full range of motion upper and lower extremities without tenderness, 2+ radial DP pulses. NEURO: Alert and answering questions appropriately. PSYCH: Normal affect. Const Vital Signs: 09/28/24 12:10 09/28/24 12:16 Temperature 97 F L Temperature Source Temporal Pulse Rate 94 Respiratory Rate 15 Respiratory Effort Normal Non-Labored Respiratory Depth Normal Respiratory Pattern Normal Blood Pressure 134/85 H Blood Pressure Mean 101 Pulse Ox 100 Oxygen Delivery Method Room Air <Rufus Miramontes MD - Last Filed: 09/28/24 15:58> Physical Exam Const Vital Signs: 09/28/24 12:10 09/28/24 12:16 Temperature 97 F L Temperature Source Temporal Pulse Rate 94 Respiratory Rate 15 Respiratory Effort Normal Non-Labored Respiratory Depth Normal Respiratory Pattern Normal Blood Pressure 134/85 H Blood Pressure Mean 101 Pulse Ox 100 Oxygen Delivery Method Room Air MDM <MENDY Gallegos - Last Filed: 09/28/24 13:15> [facility] Narrative Medical decision making narrative: Differential: Back contusion versus fracture 39-year-old female has had several mechanical falls this week on the ice. Today she fell hitting her mid back on the step presents with pain. She is awake alert no distress. Stable vital signs. She has no external signs of trauma. She reported neck stiffness and is tender over the right trapezius but has no reproducible cervical tenderness. She denies hitting her head or neck with any fall so I do not think imaging of these areas is needed. She is diffusely tender over thoracic spine and x-rays were obtained and are negative. She was treated with ibuprofen advised to continue ice and [id number] pain relievers. She was discharged in stable condition. Radiography Diagnostic Testing: Clinical Impression(s) from Imaging Studies Thoracic Spine X-Ray 09/28/24 12:18 IMPRESSION: No acute fracture or dislocation identified in the thoracic spine. Electronically Signed: Rachele Fernandez MD at 12:56 EST , ED attending interpretation of thoracic spine shows no acute fracture. <Rufus Miramontes MD - Last Filed: 09/28/24 15:58> [facility] Radiography X-Ray: Read by ED Physician and Read by Radiologist Diagnostic Testing: Clinical Impression(s) from Imaging Studies Thoracic Spine X-Ray 09/28/24 12:18 IMPRESSION: No acute fracture or dislocation identified in the thoracic spine. Electronically Signed: Rachele Fernandez MD at 12:56 EST , Treatment and Re-Evaluation Narrative: Dr. Miramontes: I have personally performed a face to face assessment of the patient and have reviewed the LEVON Note. I performed a substantive portion of the visit including all aspects of the following. My rodriguez findings include: History is mechanical fall after slipping on ice, frequent falls wearing the same pair shoes that are new and have slippery soles. Exam is GCS 15. ABCs intact. Cardiovascular examination regular rate and rhythm. Lungs clear to auscultation bilaterally. Abdomen is soft and nontender. Positive tenderness palpation diffusely throughout thoracic/mid thoracic spine and paraspinal musculature. Neurovascular intact to bilateral upper extremities. Medical Decision Making: Check x-rays. NSAIDs for analgesia. Ice pack for comfort. On my independent interpretation of the x-rays of the lumbar spine, there is no acute fracture. I reviewed the radiology report which confirms my independent interpretation. Discharge. Other additions or changes: [None] Discharge Plan Triage Chief Complaint: Fall ED Midlevel Provider: Swati Goldberg ED Provider: Rufus Miramontes Dx/Rx/DC Orders Clinical Impression: Falls, Contusion of back wall of thorax Instructions: Bruises (Contusions), ED Back Care Tips Prescriptions: No Action omeprazole 40 mg capsule,delayed release(DR/EC) 40 mg PO DAILY doxycycline monohydrate 100 mg capsule 100 mg PO BID Qty: 20 0RF azelastine 137 mcg (0.1 %) aerosol,spray 2 spray intranasal BID Qty: 30 0RF Rx Instructions: administer into each nostril promethazine-codeine 6.25-10 mg/5 mL syrup 5 ml PO 4X/DAY PRN PRN (Reason: cough) 7 Days Qty: 140 0RF albuterol sulfate [Ventolin HFA] 90 mcg/actuation HFA aerosol inhaler 1 - 2 puff inhalation Q4H PRN PRN (Reason: Wheezing) Qty: 1 0RF prednisone 20 mg tablet 60 mg PO DAILY Qty: 12 0RF albuterol sulfate [Ventolin HFA] 90 mcg/actuation HFA aerosol inhaler 2 puff inhalation Q4H PRN PRN (Reason: Wheezing) Qty: 1 0RF cephalexin [cephalexin] 500 mg capsule 500 mg PO TID Qty: 21 0RF prednisone 50 mg tablet 50 mg PO DAILY Qty: 5 0RF albuterol sulfate [Ventolin HFA] 90 mcg/actuation HFA aerosol inhaler 1 - 2 puff inhalation Q4H PRN PRN (Reason: Wheezing) Qty: 8.5 0RF oxycodone-acetaminophen [Percocet] 5-325 mg tablet 1 tab PO Q8H PRN (Reason: pain) 3 Days Qty: 10 0RF naproxen 500 mg tablet 500 mg PO BID PRN Qty: 20 0RF Primary Care Provider: Ian Mon Referrals: Ian Mon MD [Primary Care Provider] - Activity Restrictions/Additional Instructions: I recommend taking Tylenol or Motrin and ice as needed. Print Language: Upper Sorbian Disposition Disposition: Home, Self Care Discharge Date/Time: 09/28/24 13:29
[2024-09-28] MEDS: Ibuprofen 600 MG Tablet PO (12:44)
== END 2024-09-28 13:29 | disposition home or self-care (01) ==
PROVIDERS: Emergency Provider Emergency Medicine; PCP Family Medicine; Visit Provider Emergency Medicine
DX: S20.229A Contusion of unspecified back wall of thorax, initial encounter (principal); F17.210 Nicotine dependence, cigarettes, uncomplicated; Z90.710 Acquired absence of both cervix and uterus; W00.1XXA Fall from stairs and steps due to ice and snow, initial encounter; R29.6 Repeated falls
CPT/HCPCS: 72072; 99282

== ENCOUNTER 2024-10-12 17:09 | Emergency (ER) | payer MEDICAID, SELFPAY ==
[2024-10-12 17:09] VITALS: BP 138/65; PULSE 120; RESP 28; TEMP 36.4; O2SAT 94; BMI 36.0
--- NOTE | 2024-10-12 17:25 | EDS_ITS ---
HPI History of Present Illness Chief Complaint: General Illness [facility] Medical History Pneumonia Kidney disease Kidney stones Smoker Wheezes Home Medications ?Medication ?Instructions ?Recorded ?Last Taken ?Type omeprazole 40 mg capsule,delayed 40 mg PO DAILY 12/09/21 Unknown History release azelastine 137 mcg (0.1 %) nasal 2 spray intranasal BID #30 mL 10/23/22 Unknown Rx spray doxycycline monohydrate 100 mg 100 mg PO BID #20 CAPSULES 10/23/22 Unknown Rx capsule promethazine 6.25 mg-codeine 10 5 ml PO 4X/DAY PRN PRN cough 7 10/23/22 Unknown Rx mg/5 mL syrup days #140 mL albuterol sulfate 90 mcg/actuation 1 - 2 puff inhalation Q4H PRN PRN 04/04/23 Unknown Rx aerosol inhaler (Ventolin HFA) Wheezing #1 device albuterol sulfate 90 mcg/actuation 1 - 2 puff inhalation Q4H PRN PRN 06/01/23 Unknown Rx aerosol inhaler (Ventolin HFA) Wheezing #8.5 grams prednisone 50 mg tablet 50 mg PO DAILY #5 tabs 06/01/23 Unknown Rx oxycodone-acetaminophen 5 mg-325 1 tab PO Q8H PRN pain 3 days #10 08/06/23 Unknown Rx mg tablet (Percocet) tabs albuterol sulfate 90 mcg/actuation 2 puff inhalation Q4H PRN PRN 10/03/23 Unknown Rx aerosol inhaler (Ventolin HFA) Wheezing ##1 prednisone 20 mg tablet 60 mg (3 x 20 mg) PO DAILY #12 10/03/23 Unknown Rx TABLETS cephalexin 500 mg capsule 500 mg PO TID #21 CAPSULES 10/10/23 Unknown Rx naproxen 500 mg tablet 500 mg PO BID PRN #20 tabs 12/17/23 Unknown Rx albuterol sulfate 90 mcg/actuation 2 puff inhalation Q4H PRN PRN 10/12/24 Unknown Rx aerosol inhaler (Ventolin HFA) Wheezing 7 days #1 ea prednisone 50 mg tablet 50 mg PO DAILY 5 days #5 tabs 10/12/24 Unknown Rx Allergy/AdvReac Type Severity Reaction Status Date / Time hydrocodone bitartrate (From Allergy Hives Verified 10/12/24 17:46 [place]) Family History Other Heart disease Surgical History History of hysterectomy Social History household members: none Smoking Status: Current every day smoker tobacco type: cigarettes alcohol intake: current alcohol intake frequency: other substance use type: does not use EXAM Physical Exam Const Vital Signs: 10/12/24 17:09 10/12/24 17:43 10/12/24 18:03 Temperature 97.6 F L Temperature Source Temporal Pulse Rate 120 H 82 Respiratory Rate 28 H 17 Respiratory Effort Short of Breath Respiratory Pattern Normal Normal Blood Pressure 138/65 H Blood Pressure Mean 89 Pulse Ox 94 Oxygen Delivery Method Room Air 10/12/24 18:11 10/12/24 19:47 10/12/24 20:48 Temperature 97.9 F 98.0 F Temperature Source Oral Pulse Rate 100 90 97 Respiratory Rate 20 H 18 16 Respiratory Effort Respiratory Pattern Blood Pressure 109/76 129/78 H 142/78 H Blood Pressure Mean 87 95 99 Pulse Ox 92 97 99 Oxygen Delivery Method Room Air Room Air MDM MDM MDM Narrative Medical decision making narrative: HISTORY OF PRESENT ILLNESS: 39-year-old female notes increased shortness of breath cough and bodyaches. Notes she is RSV positive. She further states symptoms have gotten worse with more shortness of breath and cough. Also notes body aches. Patient denies chest pain. Denies leg swelling. Denies syncope The patient denies recent surgery in the last 4 weeks or immobilization in the last 3 days, denies previous diagnosis of DVT or PE, hemoptysis, unilateral leg swelling or malignancy with treatment the last 6 months or palliative. No estrogen use noted. REVIEW OF SYSTEMS: Pertinent positives: Shortness of breath, cough Pertinent negatives: Vomiting, syncope PHYSICAL EXAM: Nursing triage notes reviewed, Vital signs reviewed Constitutional: please see mdm HENT: MMM Eyes: Pupils equal round and reactive to light, Extraocular muscles intact Neck: No stridor, no JVD, full neck ROM Lungs: Clear to auscultation, bilateral wheezing noted. no increased work of breathing, no conversational dyspnea, no accessory muscle use, no nasal flaring. No respiratory distress noted Heart: Regular rate and rhythm, No murmurs, No rubs and No gallops, 2+ distal pulses (radial, femoral, posterior tibial) in all extremities Abdomen: Soft, there is no tenderness, rigidity, rebound or guarding, no obvious peritoneal signs, no palpable pulsatile abdominal masses, no auscultated abdominal bruit : No CVAT Extremities: No edema Neuro: No new focal neurological deficits, cranial nerves II through XII intact, 5/5 strength in all present extremities. Intact sensation to light touch in all present extremities, 2+ reflexes bilateral patella tendons. Skin: No rash or lesions noted MEDICAL DECISION MAKING: Chief Complaint: Shortness of breath, cough External records reviewed: Reviewed prior RSV COVID influenza test from 1999.4 which is negative Factors affecting care: RSV Social determinants of health: none History obtained from others: none Consults: none [facility] Narrative: Patient was initially tachycardic (heart rate 120), tachypneic (respiratory 28), saturating 94 % room air, afebrile. Lungs with wheezing bilaterally. I considered the following differential diagnosis: Bacterial pneumonia, RSV bronchiolitis, dehydration, electrolyte disturbance, arrhythmia, anemia, PE I obtained a broad lab and imaging workup to further elucidate etiology of patient's complaints ALL IMAGES (IF OBTAINED) HAVE BEEN PERSONALLY REVIEWED AND INTERPRETED BY MYSELF. EKG with normal sinus rhythm at a rate of 96, normal axis, normal intervals, no STEMI CBC without leukocytosis, severe anemia, no thrombocytopenia. BMP without evidence of significant electrolyte abnormalities, no anion gap, no acute kidney injury. High-sensitivity troponin is negative, no evidence of myocardial ischemia I have personally reviewed the patient's chest x-ray. Chest x-ray is unremarkable for pulmonary edema, pneumothorax, pneumonia or focal cardiopul monary abnormality. While I considered pulmonary embolism given initial tachycardia with poor shortness of breath the patient a low risk Wells score and a more possible diagnosis of RSV. Upon reevaluation the patient's vital signs improved with a heart rate of 90, respirate of 18 remained afebrile. She ambulated without significant hypoxia. She maintained oxygen saturation 95%. Patient is appropriate discharge home. Symptoms likely secondary to RSV. Strict return precautions were discussed. Will treat empirically for COPD with home prednisone and encouraged her to continue taking albuterol inhaler as already prescribed. The patient and/or family, caregivers express understanding. The patient and/or family, caregivers agrees with the plan. Shared decision making: I will have a discussion with the patient and or visitors regarding risk/benefits of further testing or admission. They will be made aware of of the risk/benefits inherent in this decision they will be given the opportunity to voice understanding. Total critical care time today provided was at least 0 minutes. This excludes separately billable procedures. Critical care time (if documented) is secondary to the patient having high probability of clinically significant/life threatening deterioration in the patient's condition which required my urgent intervention. Impression: 1. RSV bronchiolitis 2. Dyspnea Dispo: Discharge home This note was generated with [employer]ist[employer] dictation software. It may contain incorrect words, spelling, and punctuation that were not noted in review of the chart prior to signing. Lab Data Labs: Laboratory Results - last 24 hr 10/12/24 18:01 WBC 10.8 RBC 5.03 Hgb 14.3 Hct 43.4 MCV 86.3 MCH 28.4 MCHC 32.9 RDW Std Deviation 38.4 RDW Coeff of Raeann 12.2 Plt Count 249 MPV 10.2 Immature Gran % (Auto) 0.300 Neut % (Auto) 62.5 Lymph % (Auto) 23.9 [place] % (Auto) 7.7 Eos % (Auto) 4.9 Baso % (Auto) 0.7 Absolute Neuts (auto) 6.7 Absolute Lymphs (auto) 2.57 Nucleated RBC % 0 Sodium 142 Potassium 3.9 Chloride 110 H Carbon Dioxide 26.0 Anion Gap 6 BUN 13 Creatinine 0.57 Estim Creat Clear Calc 126.02 Est GFR (MDRD) Af Amer 153 Est GFR (MDRD) Non-Af 126 BUN/Creatinine Ratio 22.8 H Glucose 101 Calcium 9.1 Troponin I High Sens 4 Radiography Diagnostic Testing: Clinical Impression(s) from Imaging Studies Chest X-Ray 10/12/24 18:08 IMPRESSION: No acute radiographic abnormalities. Electronically Signed: Nic Lama MD at 18:45 EST , Discharge Plan Triage Chief Complaint: General Illness ED Provider: Nav,Jason Dx/Rx/DC Orders Clinical Impression: Acute bronchiolitis due to respiratory syncytial virus Instructions: ED Bronchitis with Wheezing (Adult) Prescriptions: New prednisone 50 mg tablet 50 mg PO DAILY 5 Days Qty: 5 0RF albuterol sulfate [Ventolin HFA] 90 mcg/actuation HFA aerosol inhaler 2 puff inhalation Q4H PRN PRN (Reason: Wheezing) 7 Days Qty: 1 0RF No Action omeprazole 40 mg capsule,delayed release(DR/EC) 40 mg PO DAILY doxycycline monohydrate 100 mg capsule 100 mg PO BID Qty: 20 0RF azelastine 137 mcg (0.1 %) aerosol,spray 2 spray intranasal BID Qty: 30 0RF Rx Instructions: administer into each nostril promethazine-codeine 6.25-10 mg/5 mL syrup 5 ml PO 4X/DAY PRN PRN (Reason: cough) 7 Days Qty: 140 0RF albuterol sulfate [Ventolin HFA] 90 mcg/actuation HFA aerosol inhaler 1 - 2 puff inhalation Q4H PRN PRN (Reason: Wheezing) Qty: 1 0RF prednisone 20 mg tablet 60 mg PO DAILY Qty: 12 0RF albuterol sulfate [Ventolin HFA] 90 mcg/actuation HFA aerosol inhaler 2 puff inhalation Q4H PRN PRN (Reason: Wheezing) Qty: 1 0RF cephalexin [cephalexin] 500 mg capsule 500 mg PO TID Qty: 21 0RF prednisone 50 mg tablet 50 mg PO DAILY Qty: 5 0RF albuterol sulfate [Ventolin HFA] 90 mcg/actuation HFA aerosol inhaler 1 - 2 puff inhalation Q4H PRN PRN (Reason: Wheezing) Qty: 8.5 0RF oxycodone-acetaminophen [Percocet] 5-325 mg tablet 1 tab PO Q8H PRN (Reason: pain) 3 Days Qty: 10 0RF naproxen 500 mg tablet 500 mg PO BID PRN Qty: 20 0RF Stand Alone Forms: ED Work / School Excuse Primary Care Provider: Ian Mon Referrals: Ian Mon MD [Primary Care Provider] - Activity Restrictions/Additional Instructions: Thank you for trusting us with your care today! Your labs and images were reassuring. Specifically no sign of pneumonia, heart damage. You likely suffered from RSV bronchiolitis. This is mostly treated with time. Please increase your fluid intake. Please take Tylenol (2 pills, 650 mg), ibuprofen (2 pills, 400 mg) every 6 hours as needed for pain and fever control. Please take prednisone daily and use albuterol inhaler that has been prescribed as needed for further treatment Please return to the emergency department if your symptoms change or worsen. Please follow with your primary care physician for further outpatient evaluation and management. Print Language: Lithuanian Disposition Disposition: Home, Self Care Discharge Date/Time: 10/12/24 20:49
--- NOTE | 2024-10-12 17:45 | ED.RN ---
pt was dx with rsv on tuesday of this week. pt said when she gets up she gets sob and feels faint but denies any loc or syncopal episodes. c/o diarrhea and productive cough persistently.
--- NOTE | 2024-10-12 17:51 | EKG12_ITS ---
Test Reason : SOB Blood Pressure : */* mmHG Vent. Rate : 96 BPM Atrial Rate : 96 BPM P-R Int : 132 ms QRS Dur : 68 ms QT Int : 362 ms P-R-T Axes : 54 60 72 degrees QTcB Int : 457 ms Normal sinus rhythm Normal ECG Confirmed by PATRICK LARES, KRYSTYNA ([id number]), editor magazine [employer] ([id number]) on 10/16/2024 6:08:53 AM Referred By: Confirmed By: KRYSTYNA NGUYEN MD
[2024-10-12 18:03] VITALS: PULSE 82; RESP 17
[2024-10-12] MEDS: 0.9% Normal Saline (500mL Bag) 500 ML 1000 ML IV (18:03)
[2024-10-12] MEDS: Ipratropium/Albuterol Sulfate 3 ML AMPUL.NEB INHALATION (18:03)
[2024-10-12] MEDS: Ondansetron 4 MG/2 ML Vial IV (18:03)
[2024-10-12] MEDS: Ketorolac 15 MG/ML Vial IV (18:03)
[2024-10-12] MEDS: MethylPREDNISolone 125 MG/2 ML Vial IV (18:03)
--- NOTE | 2024-10-12 18:08 | RAD_ITS ---
INDICATION: SOB EXAMINATION/TECHNIQUE: X-RAY - XR Chest 1 View COMPARISON: None. FINDINGS: The lungs are clear. The cardiomediastinal silhouette is unremarkable. No pleural effusion or pneumothorax. No acute osseous abnormalities. RAD/Chest 1 View (Portable) IMPRESSION: No acute radiographic abnormalities. Electronically Signed: Nic Lama MD at 18:45 EST ,
[2024-10-12 18:10] LABS: Absolute Lymphocyte Count 2.57 X10^3/uL (0.83-4.51); Absolute Neutrophil Count 6.7 X10^3/uL (2.0-7.7); Basophil# 0.08 X10^3/uL; Basophil% 0.7 % (0-1); Eosinophil# 0.53 X10^3/uL; Eosinophils% 4.9 % (0-5); Hematocrit 43.4 % (37-47); Hemoglobin 14.3 g/dL (12.0-15.0); Lymphocyte # 2.57 X10^3/ul (0.83-4.51); Lymphocyte % 23.9 % (19-41); Mean Corp Hgb Conc 32.9 g/dL (32-36); Mean Corpuscular Hgb 28.4 pg (27.0-32.0); Mean Corpuscular Volume 86.3 fL (81-99); Mean Platelet Vol. 10.2 fl (6.2-12.0); Monocyte# 0.83 X10^3/uL; Monocyte% 7.7 % (0-10); NRBC Flagged by Analyzer 0 % (0-5); Neutrophil # 6.72 X10^3/uL (2.7-7.7); Neutrophil % 62.5 % (47-70); Platelet Count 249 K/mm3 (150-450); RBC Distribution Width CV 12.2 % (11.6-14.6); RBC Distribution Width SD 38.4 fl (35.1-43.9); Red Blood Count 5.03 M/mm3 (4.2-5.4); White Blood Count 10.8 K/mm3 (4.4-11.0)
[2024-10-12 18:11] VITALS: BP 109/76; PULSE 100; RESP 20; TEMP 36.6; O2SAT 92
[2024-10-12 18:29] LABS: Anion Gap 6 (5-15); BUN 13 mg/dL (7-18); BUN/Creat Ratio 22.8 RATIO (10-20); Calcium,Total 9.1 mg/dL (8.5-10.1); Chloride 110 mmol/L (98-107); Creatinine, Serum 0.57 mg/dL (0.55-1.02); EST Glomerular Filtration Rate 126 mL/min (>60); Est Glom Filt Rate - Afr Amer 153 mL/min (>60); Estimated Creatinine Clearance 126.02 ml/min; Glucose 101 mg/dL (74-106); Potassium 3.9 mmol/L (3.5-5.1); Sodium Level 142 mmol/L (136-145); Troponin-I HS 4 pg/mL (3.0-54.0)
[2024-10-12 19:47] VITALS: BP 129/78; PULSE 90; RESP 18; O2SAT 96; O2SAT 97
[2024-10-12 20:48] VITALS: BP 142/78; PULSE 97; RESP 16; TEMP 36.7; O2SAT 99
== END 2024-10-12 20:49 | disposition home or self-care (01) ==
PROVIDERS: Emergency Provider Emergency Medicine; PCP Family Medicine; Visit Provider Emergency Medicine
DX: J21.0 Acute bronchiolitis due to respiratory syncytial virus (principal); Z90.710 Acquired absence of both cervix and uterus; F17.210 Nicotine dependence, cigarettes, uncomplicated; R06.00 Dyspnea, unspecified
CPT/HCPCS: 71045; 80048; 84484; 85025; 93005; 94640; 96361; 96374; 96375; 99284; A4216; J2405

== ENCOUNTER 2024-10-24 15:45 | Inpatient (IN) | payer MEDICAID, SELFPAY ==
[2024-10-24] VITALS (19 sets, daily range): BP systolic 93–127; BP diastolic 56–99; PULSE 91–112; RESP 12–25; TEMP 36.2–36.9; O2SAT 90–95; BMI 35.5; BMI 39.6
--- NOTE | 2024-10-24 16:03 | EKG12_ITS ---
Test Reason : SOB Blood Pressure : */* mmHG Vent. Rate : 109 BPM Atrial Rate : 109 BPM P-R Int : 116 ms QRS Dur : 70 ms QT Int : 350 ms P-R-T Axes : 65 71 73 degrees QTcB Int : 471 ms Sinus tachycardia Otherwise normal ECG Confirmed by COLT LARES, JESUS ([id number]), film or videotape editor WILDA MICHAELS ([id number]) on 10/27/2024 7:19:45 AM Referred By: Bo Jordan Confirmed By: JESUS GREGORY MD
--- NOTE | 2024-10-24 16:06 | ED.VIS.DYS ---
HPI History of Present Illness Chief Complaint: Shortness of Breath Narrative Narrative: Chief complaint and HPI: Shortness of breath and flulike symptoms. 39-year-old female with no significant past medical history other than previous tobacco abuse presents for evaluation of shortness of breath and flulike symptoms. History taken by patient as well as medical record. Patient states that she recently was diagnosed with RSV infection by an urgent care. She was seen in our emergency department on 10/12 for her symptoms and was diagnosed with RSV bronchiolitis. Was ultimately discharged home. Patient states that her symptoms improved but then it reoccurred 2 days ago. She states there is multiple people at her work with influenza. She states she was tested 2 days ago and negative for influenza. Patient endorses cough, shortness of breath, body aches, fever, nausea, vomiting, and diarrhea. She states she has had decreased p.o. intake secondary to symptoms. States she has been trying to keep up with fluids but has not had any real solid food. Patient states while walking to the bathroom today she felt lightheaded and had a witnessed syncopal episode. Did not hit her head. Denies any injury from the syncopal episode. Patient states that she went to urgent care for her emesis and diarrhea. She states that her pulse ox was 89% so she was sent to the emergency department. She denies any chest pain, abdominal pain, dysuria. Review of systems: See HPI Medications: As listed on the chart Allergies: As listed on the chart PFSH: Per chart Vital signs: As listed on the chart. Reviewed. Physical exam: Gen: A&O x3, NAD Head: Normocephalic, atraumatic Eyes: No sclera icterus, conjunctiva clear, PERRL, EOMI ENT: Mildly dry mucous membranes, posterior oropharynx unremarkable, uvula midline, tonsils not enlarged, no tonsillar exudates Neck: Trachea midline, No JVD, Full ROM, No meningismus CV: tachycardia, no murmurs, no peripheral edema Resp: Lungs diminished in the bilateral bases, mild expiratory wheeze GI: Abd soft, non-distended, non-tender, no r/r/g Musc: Full ROM, no deformity Skin: Warm, dry, no rash Neuro: Alert, oriented, grossly intact, sensation intact Psych: Cooperative, appropriate mood and affect [facility] Medical History History of recurrent UTI (urinary tract infection) Allergic rhinitis Former tobacco use Kidney stones Home Medications ?Medication ?Instructions ?Recorded ?Last Taken ?Type omeprazole 40 mg capsule,delayed 40 mg PO DAILY gerd 12/09/21 10/23/24 History release albuterol sulfate 90 mcg/actuation 1 - 2 puff inhalation Q4H PRN PRN 04/04/23 10/24/24 Rx aerosol inhaler (Ventolin HFA) Wheezing #1 device loratadine 10 mg tablet (Allergy 10 mg PO DAILY allergy 10/24/24 10/23/24 History Relief (loratadine)) melatonin 5 mg capsule 5 mg PO QHS sleep 10/24/24 10/23/24 History Allergy/AdvReac Type Severity Reaction Status Date / Time hydrocodone bitartrate (From Allergy Hives Verified 10/24/24 15:48 [place]) Family History Other Heart disease Surgical History History of umbilical hernia repair History of carpal tunnel surgery History of hysterectomy Social History household members: none Smoking Status: Former smoker alcohol intake: current alcohol intake frequency: other substance use type: does not use EXAM Physical Exam Const Vital Signs: 10/24/24 15:46 10/24/24 16:19 10/24/24 16:48 Temperature 97.1 F L 97.7 F L Temperature Source Oral Oral Pulse Rate 110 H 112 H Respiratory Rate 22 H 20 H Respiratory Effort Respiratory Pattern Blood Pressure 121/99 H 110/69 Blood Pressure Mean 106 82 Pulse Ox 95 92 Oxygen Delivery Method Room Air Room Air Room Air 10/24/24 16:55 10/24/24 16:59 10/24/24 17:00 Temperature Temperature Source Pulse Rate 108 H Respiratory Rate 23 H Respiratory Effort Non-Labored Respiratory Pattern Blood Pressure 110/73 Blood Pressure Mean 81 Pulse Ox 91 92 Oxygen Delivery Method Room Air 10/24/24 17:15 10/24/24 17:30 10/24/24 17:45 Temperature Temperature Source Pulse Rate 108 H 106 H Respiratory Rate 22 H 25 H Respiratory Effort Respiratory Pattern Blood Pressure 116/77 113/71 97/60 Blood Pressure Mean 88 82 72 Pulse Ox 90 90 Oxygen Delivery Method 10/24/24 17:52 10/24/24 18:00 10/24/24 18:00 Temperature 97.4 F L Temperature Source Oral Pulse Rate 111 H Respiratory Rate 22 H Respiratory Effort Respiratory Pattern Blood Pressure 111/64 113/64 Blood Pressure Mean 79 80 Pulse Ox 94 92 Oxygen Delivery Method Room Air 10/24/24 18:59 10/24/24 19:00 10/24/24 19:38 Temperature 97.4 F L 97.4 F L Temperature Source Oral Pulse Rate 93 101 H 101 H Respiratory Rate 12 20 H 21 H Respiratory Effort Respiratory Pattern Normal Blood Pressure 127/86 H 127/86 H Blood Pressure Mean 99 99 Pulse Ox 90 90 Oxygen Delivery Method Room Air 10/24/24 20:00 10/24/24 20:00 Temperature 98.4 F 98.4 F Temperature Source Oral Oral Pulse Rate 96 95 Respiratory Rate 18 19 H Respiratory Effort Respiratory Pattern Blood Pressure 121/85 H 121/85 H Blood Pressure Mean 97 97 Pulse Ox 93 94 Oxygen Delivery Method Room Air Room Air MDM MDM MDM Narrative Medical decision making narrative: 39-year-old female with no significant past medical history other than previous tobacco abuse presents for evaluation of shortness of breath and flulike symptoms. Was found to be hypoxic at urgent care. On arrival here in the emergency department she is tachycardic and intermittently tachypneic. Afebrile without any hypoxia on room air. Differential diagnosis includes but is not limited to influenza, COVID, RSV, pneumonia, electrolyte abnormality, suspect less likely ACS or PE. NS bolus, Zofran, breathing treatments, Tylenol ordered for symptoms. Laboratory workup ordered including chest x-ray. EKG and chest x-ray reviewed see below. CBC with mild leukocytosis of 13.6. No anemia. BMP without CONY. Troponin unremarkable. D-dimer elevated at 0.58. Cannot rule out PE at this time therefore CTA chest ordered. CTA chest without him. PE or pneumonia. Patient's COVID, flu, RSV negative. Patient was ambulated in our emergency department and became hypoxic to 87-88%. With rest her oxygenation improved. Given hypoxia with ambulation patient will require admission to the hospital. I suspect her symptoms are secondary to viral illness as there is no findings of pneumonia on chest x-ray or CT. On reevaluation, patient is still wheezing. Will give another breathing treatment and Solu-Medrol. Patient was discussed with the hospitalist service and patient was accepted. EKG: Interpreted by me/EM physician: EKG shows sinus tachycardia with a heart rate of 109. No acute ischemic changes. Diagnostic: Interpreted by me/EM physician: Chest x-ray without pneumonia, effusion, cardiomegaly, pneumothorax Impression: 1. Acute hypoxia with ambulation 2. Viral illness with wheezing Lab Data Labs: Laboratory Results - last 24 hr 10/24/24 16:22 WBC 13.6 H RBC 4.80 Hgb 13.7 Hct 42.9 MCV 89.4 MCH 28.5 MCHC 31.9 L RDW Std Deviation 41.6 RDW Coeff of Raeann 12.8 Plt Count 220 MPV 10.4 Immature Gran % (Auto) 0.400 Neut % (Auto) 75.1 H Lymph % (Auto) 16.4 L [place] % (Auto) 5.6 Eos % (Auto) 2.1 Baso % (Auto) 0.4 Absolute Neuts (auto) 10.2 H Absolute Lymphs (auto) 2.22 Nucleated RBC % 0 D-Dimer Quant (PE/DVT) 0.58 H* Sodium 140 Potassium 3.7 Chloride 110 H Carbon Dioxide 25.0 Anion Gap 5 BUN 13 Creatinine 0.52 L Estim Creat Clear Calc 137.17 Est GFR (MDRD) Af Amer 170 Est GFR (MDRD) Non-Af 141 BUN/Creatinine Ratio 25.1 H Glucose 92 Calcium 8.8 Troponin I High Sens < 3 L Radiography Diagnostic Testing: Clinical Impression(s) from Imaging Studies Chest X-Ray 10/24/24 16:25 IMPRESSION: Nonspecific hilar prominence which may represent viral illness or vascular congestion. Reading Location: [id number] Chest CTA 10/24/24 17:31 IMPRESSION: Nondiagnostic examination for pulmonary emboli due to motion artifact. Mediastinal and perihilar lymphadenopathy which may be reactive to infection. Adenopathy may represent the hilar prominence visualized on same radiograph. Correlate with clinical history. One or more dose reduction techniques were used (e.g., Automated exposure control, adjustment of the mA and/or kV according to patient size, use of iterative reconstruction technique). Reading Location: [id number] Discharge Plan Disposition Disposition: Acute Care Hospital [facility] Discharge Date/Time: 10/24/24 22:06
[2024-10-24] MEDS: Acetaminophen 500 MG Tablet 1000 MG PO (16:20)
[2024-10-24] MEDS: Ondansetron 4 MG/2 ML Vial IV (16:21)
[2024-10-24] MEDS: Albuterol 2.5 MG/3 ML VIAL.NEB. INHALATION ×2 (16:21→18:57)
[2024-10-24] MEDS: Ipratropium/Albuterol Sulfate 3 ML AMPUL.NEB INHALATION (16:21)
[2024-10-24] MEDS: 0.9% Normal Saline (1000mL) 1,000 ML 999 ML IV (16:24)
--- NOTE | 2024-10-24 16:25 | RAD_ITS ---
PROCEDURE: CHEST PA AND LATERAL REASON FOR EXAM: Shortness of breath; diagnosed with flu and RSV. TECHNIQUE: Frontal and lateral views of the chest. COMPARISON: None. FINDINGS: The heart size is normal. The mediastinal contour is unremarkable. Nonspecific hilar prominence which may represent viral illness or vascular congestion. The bones are unremarkable. RAD/Chest PA and Lateral IMPRESSION: Nonspecific hilar prominence which may represent viral illness or vascular lynda estion. Reading Location: [id number]
[2024-10-24 16:33] LABS: Absolute Lymphocyte Count 2.22 X10^3/uL (0.83-4.51); Absolute Neutrophil Count 10.2 X10^3/uL (2.0-7.7); Basophil# 0.06 X10^3/uL; Basophil% 0.4 % (0-1); Eosinophil# 0.28 X10^3/uL; Eosinophils% 2.1 % (0-5); Hematocrit 42.9 % (37-47); Hemoglobin 13.7 g/dL (12.0-15.0); Lymphocyte # 2.22 X10^3/ul (0.83-4.51); Lymphocyte % 16.4 % (19-41); Mean Corp Hgb Conc 31.9 g/dL (32-36); Mean Corpuscular Hgb 28.5 pg (27.0-32.0); Mean Corpuscular Volume 89.4 fL (81-99); Mean Platelet Vol. 10.4 fl (6.2-12.0); Monocyte# 0.76 X10^3/uL; Monocyte% 5.6 % (0-10); NRBC Flagged by Analyzer 0 % (0-5); Neutrophil # 10.17 X10^3/uL (2.7-7.7); Neutrophil % 75.1 % (47-70); Platelet Count 220 K/mm3 (150-450); RBC Distribution Width CV 12.8 % (11.6-14.6); RBC Distribution Width SD 41.6 fl (35.1-43.9); White Blood Count 13.6 K/mm3 (4.4-11.0)
[2024-10-24 16:48] LABS: Anion Gap 5 (5-15); BUN 13 mg/dL (7-18); BUN/Creat Ratio 25.1 RATIO (10-20); Calcium,Total 8.8 mg/dL (8.5-10.1); Chloride 110 mmol/L (98-107); Creatinine, Serum 0.52 mg/dL (0.55-1.02); EST Glomerular Filtration Rate 141 mL/min (>60); Est Glom Filt Rate - Afr Amer 170 mL/min (>60); Estimated Creatinine Clearance 137.17 ml/min; Glucose 92 mg/dL (74-106); Potassium 3.7 mmol/L (3.5-5.1); Sodium Level 140 mmol/L (136-145); Troponin-I HS < 3 pg/mL (3.0-54.0)
[2024-10-24 17:14] LABS: D-Dimer Quantitative (DVT/PE) 0.58 FEU/ug/m (0.27-0.49)
--- NOTE | 2024-10-24 17:31 | CT_ITS ---
PROCEDURE: CTA CHEST W/WO CONTRAST REASON FOR EXAM: Follow-up RSV, hypoxic. TECHNIQUE: CTA imaging of the chest with intravenous contrast. 3D reconstructions. COMPARISON: Same day radiograph. FINDINGS: Limited evaluation due to motion. Hardware: None. Lymph nodes: Enlarged/prominent mediastinal and bilateral perihilar lymph nodes. Heart: Normal heart size. No pericardial effusion. RV/LV Diameter Ratio: N/A Thoracic Aorta: No thoracic aortic aneurysm or dissection. Pulmonary Vessels: Nondiagnostic examination for pulmonary emboli due to motion artifact. Most Proximal Level of Embolus (if embolus present): N/A Lungs and Airways: The lungs are normally expanded and clear. Pleura: No pleural effusion. No pneumothorax. Upper Abdomen: Visualized portions of the upper abdominal viscera are unremarkable. Bones: Sternal step-off is favored to represent motion artifact. CT/CTA Chest W/WO Contrast IMPRESSION: Nondiagnostic examination for pulmonary emboli due to motion artifact. Mediastinal and perihilar lymphadenopathy which may be reactive to infection. Adenopathy may represent the hilar prominence visualized on same radiograph. Correlate with clinical history. One or more dose reduction techniques were used (e.g., Automated exposure contr ol, adjustment of the mA and/or kV according to patient size, use of iterative reconstruction technique). Reading Location: [id number]
--- NOTE | 2024-10-24 19:55 | HP.PCM.HOS_ITS ---
HPI - General General Date of Admission: 10/24/24 Date of Service: 10/24/24 Chief Complaint: Worsening fatigue, malaise, cough, dyspnea, N/V/D, hypoxia at evaluation. HPI Narrative The patient is a 39-year-old female with past medical history of tobacco use, history of nephrolithiasis, GERD who presents to the 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 She denies any recent chest pain or abdominal pain with the symptoms. Workup in the ED included T97.1, heart rate 110, BP 121/99, respiratory rate 22, 95% on room air at 1546, patient was ambulated and did drop to 87% on RA with most recent repeat vitals at 1938 T97.4, heart rate 101, BP 127/86, respiratory rate 21, 90% on room air, CBC with WBC 13.6, he 1 15.7, platelet 228 with left shift, D-dimer 0.58, BMP with chloride 110, BUN/creat 13/0.52, GFR 141, troponin less than 3, chest x-ray with nonspecific hilar prominence possibly viral illness or vascular congestion, chest CTA nondiagnostic for pulmonary emboli due to motion artifact, mediastinal and perihilar lymphadenopathy possibly reactive to infection similar to visualized component on radiograph, rapid SARS COVID/influenza/RSV negative, EKG with sinus tachycardia with no acute evidence of ischemia. In the ED patient administered 1 L normal saline, Tylenol 1000 mg p.o. x 1, albuterol x 2, DuoNeb x 1, Zofran 4 mg IV x 1. [facility] Medical History History of recurrent UTI (urinary tract infection) Allergic rhinitis Former tobacco use Kidney stones Home Medications ?Medication ?Instructions ?Recorded ?Last Taken ?Type omeprazole 40 mg capsule,delayed 40 mg PO DAILY gerd 0 12/09/21 10/23/24 History release albuterol sulfate 90 mcg/actuation 1 - 2 puff inhalati on Q4H PRN PRN 04/04/23 10/24/24 Rx aerosol inhaler (Ventolin HFA) Wheezing #1 device loratadine 10 mg tablet (Allergy 10 mg PO DAILY allerg y 10/24/24 10/23/24 History Relief (loratadine)) melatonin 5 mg capsule 5 mg PO QHS sleep 10/24/24 0 10/23/24 History Allergy/AdvReac Type Severity Reaction Status Date / Time hydrocodone bitartrate (From Allergy Hives Verified 10/24/24 15:48 [place]) Family History (Updated 10/25/24 @ 01:[address] Claudette Cooney MD) Mother COPD (chronic obstructive pulmonary disease) Lung cancer other (Patient does not know her paternal family history nor her father's history.) Surgical History History of umbilical hernia repair History of carpal tunnel surgery History of hysterectomy Social History (Updated 10/25/24 @ 01:[address] Claudette Cooney MD) household members: children Smoking Status: Former smoker how long ago did patient quit smoking: Quit ~ 1 year prior to 10/24/24 evaluation, smoked ~ 1 ppd since teen. alcohol intake: never substance use type: does not use ROS ROS Narrative Admission Review of Systems: CONSTITUTIONAL: No weight loss, + fever, chills, weakness or fatigue. HEENT: + Lightheadedness/dizziness with syncopal event, congestion, rhinorrhea. Eyes: No visual loss, blurred vision, double vision or yellow sclerae. Ears, Nose, Throat: No hearing loss, sneezing. SKIN: No rash or itching, lesions, wounds. CARDIOVASCULAR: + Lightheadedness/dizziness, syncopal event. No chest pain, chest pressure or chest discomfort, palpitations, edema, orthopnea. RESPIRATORY: + Dyspnea, cough, intermittent wheezing. No hemoptysis. GASTROINTESTINAL: + Anorexia, decreased appetite, nausea, vomiting or diarrhea. No abdominal pain, melena, BRBPR. GENITOURINARY: No dysuria, frequency, urgency or retention. NEUROLOGICAL: + Dizziness, headache, syncopal events. Paralysis, ataxia, numbness or tingling in the extremities, focal weakness, change in bowel or bladder control, seizure. MUSCULOSKELETAL: + muscle, back pain, joint pain or stiffness. HEMATOLOGIC: No anemia, bleeding or bruising. LYMPHATICS: No enlarged nodes. No history of splenectomy. PSYCHIATRIC: No history of depression or anxiety. ENDOCRINOLOGIC: + reports of sweating, cold or heat intolerance. No polyuria or polydipsia. ALLERGIES: + History of hives. Vital Signs Vital Signs Vital Signs: 10/24/24 15:46 10/24/24 16:19 10/24/24 16:48 Temperature 97.1 F L 97.7 F L Temperature Source Oral Oral Pulse Rate 110 H 112 H Respiratory Rate 22 H 20 H Respiratory Effort Respiratory Pattern Blood Pressure 121/99 H 110/69 Blood Pressure Mean 106 82 Pulse Ox 95 92 Oxygen Delivery Method Room Air Room Air Room Air 10/24/24 16:55 10/24/24 16:59 10/24/24 17:00 Temperature Temperature Source Pulse Rate 108 H Respiratory Rate 23 H Respiratory Effort Non-Labored Respiratory Pattern Blood Pressure 110/73 Blood Pressure Mean 81 Pulse Ox 91 92 Oxygen Delivery Method Room Air 10/24/24 17:15 10/24/24 17:30 10/24/24 17:45 Temperature Temperature Source Pulse Rate 108 H 106 H Respiratory Rate 22 H 25 H Respiratory Effort Respiratory Pattern Blood Pressure 116/77 113/71 97/60 Blood Pressure Mean 88 82 72 Pulse Ox 90 90 Oxygen Delivery Method 10/24/24 17:52 10/24/24 18:00 10/24/24 18:00 Temperature 97.4 F L Temperature Source Oral Pulse Rate 111 H Respiratory Rate 22 H Respiratory Effort Respiratory Pattern Blood Pressure 111/64 113/64 Blood Pressure Mean 79 80 Pulse Ox 94 92 Oxygen Delivery Method Room Air 10/24/24 18:59 10/24/24 19:00 10/24/24 19:38 Temperature 97.4 F L 97.4 F L Temperature Source Oral Pulse Rate 93 101 H 101 H Respiratory Rate 12 20 H 21 H Respiratory Effort Respiratory Pattern Normal Blood Pressure 127/86 H 127/86 H Blood Pressure Mean 99 99 Pulse Ox 90 90 Oxygen Delivery Method Room Air Weight Weight: 176 lb Body Mass Index (BMI) 35.5 Physical Exam Narrative Physical Examination: General: Awake, alert, oriented x 3 and cooperative, seated upright in the ED bed, fatigued and ill-appearing. Skin: Normal color, normal turgor, no icterus, no cyanosis. HEENT: AT/NC, EOMI, PERRLA, dry MM, no carotid bruits or JVD noted. Lungs: Significantly diminished, greater bases, end expiratory wheezing diffusely, no evidence of any distress. Heart: Mildly tachycardic with regular rhythm; no gallop, rub audible. Abdomen: Soft, obese, NTTP, ND, normal BS, no appreciated HSM. Extremities: No cyanosis, clubbing, or edema. Neurological: Patient awake, alert, oriented as noted, cognitive function intact; pupils equally reactive to light and accommodation, cranial nerves grossly normal, moving all 4 extremities, no focal deficits, strength moderately to severely globally decreased secondary to acute presentation. Psychiatric: Affect appears flat, fatigued, ill-appearing, no acute evidence of depressive or anxiety feelings. Results Lab / Micro Data 10/24/24 16:22 10/24/24 16:22 Labs: Laboratory Results - last 24 hr 10/24/24 16:22: WBC 13.6 H, RBC 4.80, Hgb 13.7, Hct 42.9, MCV 89.4, MCH 28.5, M CHC 31.9 L, RDW Std Deviation 41.6, RDW Coeff of Raeann 12.8, Plt Count 220, MPV 10.4, Immature Gran % (Auto) 0.400, Neut % (Auto) 75.1 H, Lymph % (Auto) 16.4 L, Hutchinson % (Auto) 5.6, Eos % (Auto) 2.1, Baso % (Auto) 0.4, Absolute Neuts (auto) 10.2 H, Absolute Lymphs (auto) 2.22, Nucleated RBC % 0, D-Dimer Quant (PE/DVT) 0.58 H*, Sodium 140, Potassium 3.7, Chloride 110 H, Carbon Dioxide 25.0, Anion Gap 5, BUN 13, Creatinine 0.52 L, Estim Creat Clear Calc 137.17, Est GFR (MDRD) Af Amer 170, Est GFR (MDRD) Non-Af 141, BUN/Creatinine Ratio 25.1 H, Glucose 92, Calcium 8.8, Troponin I High Sens < 3 L Micro: Microbiology 10/24/24 16:22 Mucosa - Nose SARS-CoV-2, Influenza & RSV (PCR) - Final Imaging Radiology Impression Chest X-Ray 10/24/24 16:25 IMPRESSION: Nonspecific hilar prominence which may represent viral illness or vascular congestion. Reading Location: [facility] Chest CTA 10/24/24 17:31 IMPRESSION: Nondiagnostic examination for pulmonary emboli due to motion artifact. Mediastinal and perihilar lymphadenopathy which may be reactive to infection. Adenopathy may represent the hilar prominence visualized on same radiograph. Correlate with clinical history. One or more dose reduction techniques were used (e.g., Automated exposure control, adjustment of the mA and/or kV according to patient size, use of iterative reconstruction technique). Reading Location: [facility] Assessment & Plan Assessment/Plan (1) Acute bronchiolitis due to respiratory syncytial virus: (2) Syncope: PLAN: Plan The patient is a 39-year-old female with past medical history of tobacco use, history of nephrolithiasis, GERD who presents to the [facility] ED on 10/24/2024 with history of flulike symptoms and dyspnea following recent diagnosis of RSV infection by urgent care with ED evaluation 10/12/2024 secondary to her symptoms with diagnosis of RSV bronchiolitis at that time ultimately discharged to home with improvement however over the last 2 days she clinically worsened with onset cough, dyspnea, body aches, intermittent fevers, nausea, emesis and diarrhea with several ill coworkers with reported influenza with episode of lightheadedness/dizziness while in the bathroom with syncopal event with evaluation at urgent care noted to be 89% with transition to the ED for evaluation. #1. Acute Hypoxia secondary to Acute viral syndrome with recent diagnosis of RSV bronchiolitis w/ LH/Dizziness w/ syncopal event felt likely orthostasis related given ongoing poor intake, GI losses: Will admit to [facility] given stable vital signs otherwise, maintain on telemetry monitoring, will obtain orthostatics and repeat in a.m. if appropriate, will continue aggressive IV fluids, currently not needing any oxygen if at rest however desaturated with activity attempts, will initiate and maintain on IV Solu-Medrol, will maintain on ATC budesonide therapy, as needed albuterol, encourage HOB, IS parameters w/ pending sputum cultures, full respiratory viral panel, procalcitonin and urine antigens. #2. Allergic rhinitis: We will continue patient on loratadine regimen. #3. Former tobacco use: Encourage continued tobacco cessation. #4. GERD: We will continue patient on PPI. #5. DVT prophylaxis: Lovenox. Charges/Coding Visit Charges Inpatient E&M: 28785 Init Hosp L3
[2024-10-24 21:43] LABS: Procalcitonin 0.14 ng/mL (0.00-0.09)
[2024-10-24] MEDS: MethylPREDNISolone 125 MG/2 ML Vial IV (22:04)
[2024-10-24] MEDS: 0.9% Normal Saline (1000mL) 1,000 ML 100 ML IV (22:21)
[2024-10-24] MEDS: 0.9% Saline Lock 10 ML Syringe IV (22:21)
[2024-10-24] MEDS: MELATONIN 10 MG TABLET 5 MG PO (22:58)
[2024-10-25] VITALS (9 sets, daily range): BP systolic 113–134; BP diastolic 72–75; PULSE 81–98; RESP 16–20; TEMP 36.4–36.7; O2SAT 91–93; BMI 39.9
[2024-10-25] MEDS: 0.9% Saline Lock 10 ML Syringe IV ×2 (05:04→22:21)
[2024-10-25 07:01] LABS: Absolute Lymphocyte Count 0.95 X10^3/uL (0.83-4.51); Absolute Neutrophil Count 7.3 X10^3/uL (2.0-7.7); Basophil# 0.02 X10^3/uL; Basophil% 0.2 % (0-1); Hematocrit 41.6 % (37-47); Hemoglobin 13.4 g/dL (12.0-15.0); Lymphocyte # 0.95 X10^3/ul (0.83-4.51); Lymphocyte % 11.3 % (19-41); Mean Corp Hgb Conc 32.2 g/dL (32-36); Mean Corpuscular Hgb 28.8 pg (27.0-32.0); Mean Corpuscular Volume 89.3 fL (81-99); Mean Platelet Vol. 11.1 fl (6.2-12.0); Monocyte# 0.07 X10^3/uL; Monocyte% 0.8 % (0-10); NRBC Flagged by Analyzer 0 % (0-5); Neutrophil # 7.34 X10^3/uL (2.7-7.7); Neutrophil % 87.3 % (47-70); Platelet Count 233 K/mm3 (150-450); RBC Distribution Width CV 12.9 % (11.6-14.6); RBC Distribution Width SD 42.1 fl (35.1-43.9); Red Blood Count 4.66 M/mm3 (4.2-5.4); White Blood Count 8.4 K/mm3 (4.4-11.0)
[2024-10-25] MEDS: Budesonide Respules 0.5 MG/2 ML AMPUL.NEB. INHALATION ×2 (07:14→19:46)
[2024-10-25 07:42] LABS: ALB/GLOB Ratio 0.7 RATIO (0.9-2.4); AST(SGOT) 42 U/L (15-37); Alanine Aminotransfer ALT/SGPT 72 U/L (13-56); Albumin, Serum 2.8 g/dL (3.2-5.0); Alkaline Phosphatase 40 U/L (45-117); Anion Gap 7 (5-15); BUN 10 mg/dL (7-18); Calcium,Total 8.3 mg/dL (8.5-10.1); Chloride 112 mmol/L (98-107); Creatinine, Serum 0.53 mg/dL (0.55-1.02); EST Glomerular Filtration Rate 138 mL/min (>60); Est Glom Filt Rate - Afr Amer 167 mL/min (>60); Estimated Creatinine Clearance 135.18 ml/min; Globulin 3.9 g/dL (2.2-4.2); Glucose 182 mg/dL (74-106); Potassium 4.1 mmol/L (3.5-5.1); Protein, Total 6.7 g/dL (6.4-8.2); Sodium Level 140 mmol/L (136-145)
[2024-10-25] MEDS: Pantoprazole Sodium 40 MG Tablet PO (08:00)
[2024-10-25] MEDS: Loratadine 10 MG Tablet PO (08:01)
[2024-10-25] MEDS: Ensure Plus High Protein 120 ML LIQUID PO (08:01)
[2024-10-25] MEDS: Enoxaparin 40 MG/0.4 ML Syringe SC (08:01)
--- NOTE | 2024-10-25 13:06 | PCM.PROGNOTE ---
Subjective Subjective Patient seen and examined. She had no active complaints. She says she was feeling better today. She is still wheezing a bit and she has a cough which is mildly productive. Review of systems otherwise negative. Objective Data Objective Data Vital Signs: Vital Signs Temp Pulse Resp BP Pulse Ox O2 Del Method 97.7 F L 89 16 113/72 93 Room Air 10/25/24 07:58 10/25/24 08:00 10/25/24 07:58 10/25/24 07:58 10/25/24 07:58 10/25/24 07:58 Oxygen Delivery Method Room Air Weight: 177 lb 7.554 oz Body Mass Index (BMI) 39.9 Intake & Output: Intake and Output for Last 24 Hours 10/23/24 10/24/24 10/25/24 23:59 23:59 23:59 Intake Total 1100 / 1100 400 / 400 Balance 1100 / 1100 400 / 400 Lab / Micro Data 10/25/24 05:38 10/25/24 05:38 Labs: Laboratory Results - last 24 hr 10/24/24 16:22: WBC 13.6 H, RBC 4.80, Hgb 13.7, Hct 42.9, MCV 89.4, MCH 28.5, MCHC 31.9 L, RDW Std Deviation 41.6, RDW Coeff of Raeann 12.8, Plt Count 220, MPV 10.4, Immature Gran % (Auto) 0.400, Neut % (Auto) 75.1 H, Lymph % (Auto) 16.4 L, Hamlin % (Auto) 5.6, Eos % (Auto) 2.1, Baso % (Auto) 0.4, Absolute Neuts (auto) 10.2 H, Absolute Lymphs (auto) 2.22, Nucleated RBC % 0, D-Dimer Quant (PE/DVT) 0.58 H*, Sodium 140, Potassium 3.7, Chloride 110 H, Carbon Dioxide 25.0, Anion Gap 5, BUN 13, Creatinine 0.52 L, Estim Creat Clear Calc 137.17, Est GFR (MDRD) Af Amer 170, Est GFR (MDRD) Non-Af 141, BUN/Creatinine Ratio 25.1 H, Glucose 92, Calcium 8.8, Troponin I High Sens < 3 L 10/24/24 21:09: Procalcitonin 0.14 H 10/25/24 05:38: WBC 8.4, RBC 4.66, Hgb 13.4, Hct 41.6, MCV 89.3, MCH 28.8, MCHC 32.2, RDW Std Deviation 42.1, RDW Coeff of Raeann 12.9, Plt Count 233, MPV 11.1, Immature Gran % (Auto) 0.400, Neut % (Auto) 87.3 H, Lymph % (Auto) 11.3 L, Hamlin % (Auto) 0.8, Eos % (Auto) 0.0, Baso % (Auto) 0.2, Absolute Neuts (auto) 7.3, Absolute Lymphs (auto) 0.95, Nucleated RBC % 0, Sodium 140, Potassium 4.1, Chloride 112 H, Carbon Dioxide 21.0, Anion Gap 7, BUN 10, Creatinine 0.53 L, Estim Creat Clear Calc 135.18, Est GFR (MDRD) Af Amer 167, Est GFR (MDRD) Non-Af 138, BUN/Creatinine Ratio 19.0, Glucose 182 H, Calcium 8.3 L, Total Bilirubin 0.30, AST 42 H, ALT 72 H, Alkaline Phosphatase 40 L, Total Protein 6.7, Albumin 2.8 L, Globulin 3.9, Albumin/Globulin Ratio 0.7 L Micro: Microbiology 10/24/24 22:23 Mucosa - Nasopharyngeal Respiratory Panel (PCR) - Final 10/24/24 22:15 Urine, Clean Catch Legionella Antigen - Final 10/24/24 22:15 Urine, Clean Catch Streptococcus pneumoniae Antigen (M - Final 10/24/24 16:22 Mucosa - Nose SARS-CoV-2, Influenza & RSV (PCR) - Final Radiography Diagnostic Testing: Radiology Impression Chest X-Ray 10/24/24 16:25 IMPRESSION: Nonspecific hilar prominence which may represent viral illness or vascular congestion. Reading Location: [facility] Chest CTA 10/24/24 17:31 IMPRESSION: Nondiagnostic examination for pulmonary emboli due to motion artifact. Mediastinal and perihilar lymphadenopathy which may be reactive to infection. Adenopathy may represent the hilar prominence visualized on same radiograph. Correlate with clinical history. One or more dose reduction techniques were used (e.g., Automated exposure control, adjustment of the mA and/or kV according to patient size, use of iterative reconstruction technique). Reading Location: [facility] Physical Exam Const alert, oriented x3, no apparent distress and well nourished General Appearance: cooperative and well developed HEENT normocephalic, head/scalp atraumatic and moist oral mucous membranes Eyes PERRL and EOMs intact bilaterally Neck no lymphadenopathy and supple Lymph Lymphatic: no lymphadenopathy noted and no lymphedema noted Resp Resp Narrative: Mildly diminished breath sounds bibasilarly. Mild wheezing. No crackles. On room air. Cardio regular rate, regular rhythm, S1 normal heart sound, S2 normal heart sound and no murmurs Peripheral Pulses: pulses 2+ throughout GI normal to inspection, nondistended, normoactive bowel sounds, soft to palpation, non-tender and non-distended Extremity normal capillary refill, no clubbing, cyanosis or edema and no calf tenderness General Extremity: no tenderness to palpation of joints or extremities Skin General Skin Exam: no breakdown Neuro CN's II-XII intact bilaterally, no focal motor deficits and no sensory deficits noted Motor Exam: strength 5/5 throughout Psych thought process normal, cooperative and affect normal Appearance: appropriate Assessment & Plan Assessment/Plan (1) Syncope: PLAN: Plan #Hypoxia due to RSV bronchiolitis Patient feeling much better. She feels her breathing has improved. She is on IV Solu-Medrol. Breathing treatments bronchodilators. Sputum culture pending. Respiratory panel was negative. Titrate oxygen to maintain saturation above 90%. CTA chest was nondiagnostic for PE but showed mediastinal and perihilar lymphadenopathy which is likely reactive due to infection. Urine for strep and Legionella negative. #Syncope Thought to be due to dehydration from orthostatics on account of poor oral intake. Feels much better this morning. Encourage oral hydration. Fall precautions. #GERD: On PPI DVT prophylaxis: Lovenox Charges/Coding Visit Charges Inpatient E&M: 05205 Subs Hosp L2
--- NOTE | 2024-10-25 13:25 | CASEMGMT ---
BETHANIE DELACRUZ Assessment: Face to Face with pt for initial transition planning/care coordination assessment. BETHANIE DELACRUZ introduced self and role at [facility], pt voices understanding and consents to assessment. Pt is A&O x4 and answers all questions appropriately at this time. Pt sitting up in bed in no distress on RA. Care providers, pharmacy, and demographics verified/updated. Admitting Dx: hypoxia, viral syndrome Strata Score: 2 PCP:Elieser Specialists:Denies Preferred Pharmacy:[facility] Insurance: [employer] Prescription Benefit: yes LNOK: Megan Leblanc, friend Living Arrangements: Pt lives with 3 teenage children in a two story home with 3 steps to enter. Pt reports she is I in ADLs/IADLs and denies concerns at home. Transportation: Pt drives self and denies concerns with transportation. DME:Denies HHC/SNF: Denies hx of Pt states no concerns with going home at time of dc. Pt states she was looking into getting a pox prior to admission. Pt states she can afford this. Discussed local in network DME providers should pt need home oxygen, pt chose [employer]. Pt states no further concerns/needs. CM to follow. Advised pt to ask CM if any further questions/concerns/needs arise, voices understanding. Pt Goal: Home Plan: Home, follow for oxygen Remi KOVACS CM
[2024-10-25] MEDS: 0.9 % NaCl (Sterile) Posiflush 10 mL IV (14:16)
[2024-10-25] MEDS: MELATONIN 10 MG TABLET 5 MG PO (22:21)
[2024-10-26 04:54] VITALS: BP 128/80; PULSE 89; RESP 20; TEMP 36.6; O2SAT 94
[2024-10-26] MEDS: 0.9% Saline Lock 10 ML Syringe IV (05:02)
[2024-10-26 05:20] VITALS: BMI 38.8
[2024-10-26] MEDS: Budesonide Respules 0.5 MG/2 ML AMPUL.NEB. INHALATION (06:49)
[2024-10-26 06:51] VITALS: PULSE 87; RESP 18; O2SAT 91
[2024-10-26 07:13] LABS: Absolute Lymphocyte Count 1.49 X10^3/uL (0.83-4.51); Absolute Neutrophil Count 12.6 X10^3/uL (2.0-7.7); Basophil# 0.01 X10^3/uL; Basophil% 0.1 % (0-1); Eosinophil# 0.01 X10^3/uL; Eosinophils% 0.1 % (0-5); Hematocrit 41.6 % (37-47); Hemoglobin 13.3 g/dL (12.0-15.0); Lymphocyte # 1.49 X10^3/ul (0.83-4.51); Lymphocyte % 10.3 % (19-41); Mean Corpuscular Hgb 28.1 pg (27.0-32.0); Mean Corpuscular Volume 87.8 fL (81-99); Mean Platelet Vol. 10.8 fl (6.2-12.0); Monocyte# 0.28 X10^3/uL; Monocyte% 1.9 % (0-10); NRBC Flagged by Analyzer 0 % (0-5); Neutrophil # 12.59 X10^3/uL (2.7-7.7); Platelet Count 237 K/mm3 (150-450); RBC Distribution Width CV 12.5 % (11.6-14.6); RBC Distribution Width SD 40.3 fl (35.1-43.9); Red Blood Count 4.74 M/mm3 (4.2-5.4); White Blood Count 14.5 K/mm3 (4.4-11.0)
[2024-10-26 07:57] LABS: Anion Gap 6 (5-15); BUN 14 mg/dL (7-18); BUN/Creat Ratio 33.5 RATIO (10-20); Calcium,Total 8.9 mg/dL (8.5-10.1); Chloride 112 mmol/L (98-107); Creatinine, Serum 0.42 mg/dL (0.55-1.02); EST Glomerular Filtration Rate 180 mL/min (>60); Est Glom Filt Rate - Afr Amer 218 mL/min (>60); Estimated Creatinine Clearance 168.41 ml/min; Glucose 143 mg/dL (74-106); Potassium 3.9 mmol/L (3.5-5.1); Sodium Level 141 mmol/L (136-145)
[2024-10-26 08:30] VITALS: BP 118/77; PULSE 87; RESP 16; TEMP 36.4; O2SAT 95
[2024-10-26] MEDS: Enoxaparin 40 MG/0.4 ML Syringe SC (08:31)
[2024-10-26] MEDS: Pantoprazole Sodium 40 MG Tablet PO (08:31)
[2024-10-26] MEDS: Loratadine 10 MG Tablet PO (08:31)
[2024-10-26 12:21] VITALS: O2SAT 93; O2SAT 95
[2024-10-26 13:27] VITALS: BP 116/72; PULSE 88; RESP 16; TEMP 36.6; O2SAT 95
--- NOTE | 2024-10-26 13:27 | DCINST_ITS ---
Discharge Instructions Diet Discharge Diet: Low fat / Low cholesterol DC O2, CPAP, BIPAP needs Home O2 Discharge instructions: No Dressing / Incision Discharge Activity: Return to Normal Activity Weight Bearing Status: Weight bearing as tolerated Dressing / Incision Call your doctor if you observe: Fever of 101 or Higher, Shortness of breath, Dizziness and Chest pain Follow Up Care Test Results: Test results from this visit will be discussed in further detail at your follow- up appointment, if applicable. Discharge Plan Admission Admit Date/Time: 10/24/24 20:10 Primary Reason for Your Visit: RSV infection Attending Provider: Anayeli Mendoza Primary Care Provider: Ian Mon Consulting Providers: Claudette Cooney Instructions Patient Instructions: Bronchiolitis, RSV (Respiratory Syncytial Virus) Discharge Orders/Prescriptions Prescriptions: New prednisone 20 mg tablet 40 mg PO DAILY Qty: 10 0RF Continued omeprazole 40 mg capsule,delayed release(DR/EC) 40 mg PO DAILY albuterol sulfate [Ventolin HFA] 90 mcg/actuation HFA aerosol inhaler 1 - 2 puff inhalation Q4H PRN PRN (Reason: Wheezing) Qty: 1 0RF loratadine [Allergy Relief (loratadine)] 10 mg tablet 10 mg PO DAILY melatonin 5 mg capsule 5 mg PO QHS Referrals / Follow Up: Ian Mon MD [Primary Care Provider] - Within 1 Week Disposition Disposition (needs filled in before D/C Order can be placed): Home, Self Care
--- NOTE | 2024-10-26 13:28 | DS.PCM_ITS ---
Providers Date of Admission: 10/24/24 Date of Discharge: 10/26/24 Primary Care Physician: Dr. Ian Mon MD Reason For Visit: HYPOXIA, VIRAL SYNDROME Diagnosis Discharge Diagnosis (1) Syncope: Status: Acute Code(s): R55 - Syncope and collapse Plan #Hypoxia due to RSV bronchiolitis * Patient feeling much better. She feels her breathing has improved. She is on IV Solu-Medrol. Breathing treatments bronchodilators. Sputum culture pending. Respiratory panel was negative. * Titrate oxygen to maintain saturation above 90%. * CTA chest was nondiagnostic for PE but showed mediastinal and perihilar lymphadenopathy which is likely reactive due to infection. * Urine for strep and Legionella negative. * #Syncope * Thought to be due to dehydration from orthostatics on account of poor oral intake. * Feels much better this morning. Encourage oral hydration. Fall precautions. #GERD: On PPI DVT prophylaxis: Lovenox Medications at Discharge Home Medications omeprazole 40 mg capsule,delayed release 40 mg PO DAILY gerd 12/09/21 albuterol sulfate 90 mcg/actuation aerosol inhaler (Ventolin HFA) 1 - 2 puff inhalation Q4H PRN PRN Wheezing #1 device 04/04/23 loratadine 10 mg tablet (Allergy Relief (loratadine)) 10 mg PO DAILY allergy 10/24/24 melatonin 5 mg capsule 5 mg PO QHS sleep 10/24/24 prednisone 20 mg tablet 40 mg (2 x 20 mg) PO DAILY #10 tabs 10/26/24 Hospital Course Operations None Procedures None Summary of Care Provided Minutes Spent on Discharge: 45 Hospital Course: Patient is a 39-year-old female with a past medical history as outlined was admitted through the ED on 10/24/2024 with complaint of shortness of breath and flulike symptoms after being recently diagnosed with RSV infection in the urgent care. She had been seen in the ED on 10/12/2024 due to her shortness of breath and diagnosis of RSV bronchiolitis then but was discharged home. However his symptoms did improve but subsequently worsened 2 days prior to admission with cough, shortness of breath and intermittent fever and chills as well as nausea and vomiting and diarrhea. She also had decreased intake. Respiratory panel was negative for flu. She says she had had several sick individuals at work. She had a syncopal event was in the bathroom at work and so went to the urgent care where she was noted to be saturating at 89% on room air she was brought to the ED. In the ED she was saturating 95% on room air. However with ambulation she did drop to 87% on room air. D-dimer was not elevated. Chest x-ray showed nonspecific hilar prominence probably due to viral illness vascular congestion and CT of the chest was nondiagnostic for pulmonary emboli due to motion infarct but showed mediastinal and perihilar lymphadenopathy possibly reactive to infection similar to visualize component on radiograph. COVID, influenza and RSV screen was negative. EKG showed sinus tachycardia with no acute ST changes. She was admitted and managed for hypoxia due to upper respiratory tract infection likely viral. She was placed on IV Solu-Medrol and breathing treatments bronchodilators. Patient improved much more quickly than expected. Her shortness of breath resolved and she was weaned down to room air. She remained stable and was discharged on 10/26/2024. She was discharged on p.o. prednisone 40 mg daily for 5 days. She is follow-up with her primary care doctor within 1 to 2 weeks. Patient seen and examined prior to discharge. She felt well and had no active complaints. Review of systems otherwise negative. Labs and vitals reviewed. Home medication reviewed and reconciled. Physical Exam Const alert, oriented x3, no apparent distress and well nourished General Appearance: cooperative, comfortable, well kempt and well developed Orientation / Consciousness: awake Exam Limitations: no limitations HEENT normocephalic, head/scalp atraumatic, hearing grossly normal bilaterally and moist oral mucous membranes Mouth: oral and palatal mucosa normal Eyes PERRL, EOMs intact bilaterally and conjunctivae normal Neck no lymphadenopathy and supple Lymph Lymphatic: no lymphadenopathy noted and no lymphedema noted Resp Resp Narrative: Mildly diminished breath sounds bibasilarly. No wheezing. No crackles. On room air. Cardio regular rate, regular rhythm, S1 normal heart sound, S2 normal heart sound and no murmurs Peripheral Pulses: pulses 2+ throughout GI normal to inspection, nondistended, normoactive bowel sounds, soft to palpation, non-tender and non-distended Extremity normal to inspection, full ROM, normal capillary refill, no clubbing, cyanosis or edema and no calf tenderness General Extremity: no tenderness to palpation of joints or extremities Skin no rashes or lesions noted General Skin Exam: no breakdown Neuro oriented x3, CN's II-XII intact bilaterally, moves all extremities, no focal motor deficits and no sensory deficits noted Sensorium / Orientation: awake and alert Motor Exam: strength 5/5 throughout Psych thought process normal, cooperative and affect normal Appearance: appropriate Weight / BMI Weight Weight: 173 lb 4.533 oz Body Mass Index (BMI) 38.8 ABG / Lab / Microbiology Data 10/26/24 06:33 10/26/24 06:33 Laboratory: Laboratory Results - last 24 hr 10/26/24 06:33: WBC 14.5 H, RBC 4.74, Hgb 13.3, Hct 41.6, MCV 87.8, MCH 28.1, MCHC 32.0, RDW Std Deviation 40.3, RDW Coeff of Raeann 12.5, Plt Count 237, MPV 10.8, Immature Gran % (Auto) 0.600, Neut % (Auto) 87.0 H, Lymph % (Auto) 10.3 L, [place] % (Auto) 1.9, Eos % (Auto) 0.1, Baso % (Auto) 0.1, Absolute Neuts (auto) 12.6 H, Absolute Lymphs (auto) 1.49, Nucleated RBC % 0, Sodium 141, Potassium 3.9, Chloride 112 H, Carbon Dioxide 23.0, Anion Gap 6, BUN 14, Creatinine 0.42 L , Estim Creat Clear Calc 168.41, Est GFR (MDRD) Af Amer 218, Est GFR (MDRD) Non- Af 180, BUN/Creatinine Ratio 33.5 H, Glucose 143 H, Calcium 8.9 Microbiology: Microbiology 10/25/24 08:00 Sputum, Expectorated/Coughed Gram Stain - Final 10/24/24 22:23 Mucosa - Nasopharyngeal Respiratory Panel (PCR) - Final 10/24/24 22:15 Urine, Clean Catch Legionella Antigen - Final 10/24/24 22:15 Urine, Clean Catch Streptococcus pneumoniae Antigen (M - Final 10/24/24 16:22 Mucosa - Nose SARS-CoV-2, Influenza & RSV (PCR) - Final D/C Instructions Discharge Diet: Low fat / Low cholesterol Discharge Activity: Return to Normal Activity Weight Bearing Status: Weight bearing as tolerated Call your doctor if you observe: Fever of 101 or Higher, Shortness of breath, Dizziness and Chest pain DC O2, CPAP, BIPAP Needs RN Home O2 Qualification: Home O2 Qualification: Is the patient on home oxygen No 10/26/24 12:21 Home O2 Qualification: AT REST 1- Pulse Ox at rest 95 10/26/24 12:21 Home O2 Qualification: WITH AMBULATION 1- Pulse Ox with ambulation 93 10/26/24 12:21 1- Oxygen Flow Rate with 0 10/26/24 12:21 ambulation Home O2 Discharge instructions: No DC home with Oxygen: No Meaningful Use Info Meaningful Use Meaningful Use Diagnoses (Choose all that apply): None applicable Ischemic Stroke Statin Dosing Therapy Reference: STATIN DOSE THERAPY REFERENCE: * Patients > 75 years receive moderate or high dose statin therapy. * Patients 75 years or YOUNGER should receive HIGH intensity statin dose unless contraindicated. You will be required to document reason for non-treatment if statin daily dose does not meet guidelines. HIGH DOSE STATIN THERAPY DAILY Atorvastatin > than or = to 40 mg Rosuvastatin > than or = to 20 mg Amlodipine + Atorvastatin > than or = to 2.5/40 mg Ezetimibe + Simvastatin 10/80 mg Simvastatin 80mg Discharge Plan Admission Admit Date/Time: 10/24/24 20:10 Primary Reason for Your Visit: RSV infection Attending Provider: Anayeli Mendoza Primary Care Provider: Ian Mon Consulting Providers: Claudette Cooney Instructions Patient Instructions: Bronchiolitis, RSV (Respiratory Syncytial Virus) Discharge Orders/Prescriptions Prescriptions: New prednisone 20 mg tablet 40 mg PO DAILY Qty: 10 0RF Continued omeprazole 40 mg capsule,delayed release(DR/EC) 40 mg PO DAILY albuterol sulfate [Ventolin HFA] 90 mcg/actuation HFA aerosol inhaler 1 - 2 puff inhalation Q4H PRN PRN (Reason: Wheezing) Qty: 1 0RF loratadine [Allergy Relief (loratadine)] 10 mg tablet 10 mg PO DAILY melatonin 5 mg capsule 5 mg PO QHS Referrals / Follow Up: Ian Mon MD [Primary Care Provider] - Within 1 Week Disposition Disposition (needs filled in before D/C Order can be placed): Home, Self Care Charges/Coding Visit Charges Inpatient E&M: 90750 Disch Hosp >30min
[2024-10-26] MEDS: 0.9 % NaCl (Sterile) Posiflush 10 mL IV (14:42)
== END 2024-10-26 15:00 | disposition home or self-care (01) | DRG 138 ==
LOC: ED 16:37 → MS3 10-25 07:17
PROVIDERS: Admitting Provider Family Medicine; Emergency Provider Surgery; PCP Family Medicine; Referring Provider Surgery; Visit Provider Student in an Organized Health Care Education/Training Program
DX: J21.0 Acute bronchiolitis due to respiratory syncytial virus (principal); K21.9 Gastro-esophageal reflux disease without esophagitis; Z87.891 Personal history of nicotine dependence; Z90.710 Acquired absence of both cervix and uterus; R55 Syncope and collapse; R59.0 Localized enlarged lymph nodes
CPT/HCPCS: 36415; 71046; 71275; 80048; 80053; 84145; 84484; 85025; 85379; 87070; 87205; 87449; 87631; 87633; 93005; 94640; 94668; 97802; 99285; Q9967; A4216; J2405

== ENCOUNTER 2025-01-11 17:07 | Emergency (ER) | payer MEDICAID, SELFPAY ==
[2025-01-11 17:08] VITALS: BP 111/80; PULSE 84; RESP 16; TEMP 36.4; O2SAT 98; BMI 40.0
--- NOTE | 2025-01-11 17:53 | CT_ITS ---
EXAM: CT Abdomen and Pelvis Without Intravenous Contrast CLINICAL INDICATION: KIDNEY STONE TECHNIQUE: Axial computed tomography images of the abdomen and pelvis without intravenous contrast. This CT exam was performed using one or more of the following dose reduction techniques: automated exposure control, adjustment of the mA and/or kV according to patient size, and/or use of iterative reconstruction technique. COMPARISON: No relevant prior studies available. FINDINGS: LUNG BASES: Unremarkable. No mass. No consolidation. MEDIASTINUM: Small esophageal hiatal hernia. ABDOMEN: LIVER: Hepatomegaly with fatty infiltration. GALLBLADDER AND BILE DUCTS: Unremarkable. No calcified stones. No ductal dilation. PANCREAS: Unremarkable. No ductal dilation. SPLEEN: Unremarkable. No splenomegaly. ADRENALS: Unremarkable. No mass. KIDNEYS AND URETERS: 3 mm left renal pelvic calculus without obstruction. STOMACH AND BOWEL: Fecal retention in the colon consistent with constipation. No obstruction. No mucosal thickening. PELVIS: APPENDIX: No findings to suggest acute appendicitis. BLADDER: Unremarkable. No stones. REPRODUCTIVE: Unremarkable as visualized. ABDOMEN and PELVIS: INTRAPERITONEAL SPACE: Unremarkable. No free air. No significant fluid collection. BONES/JOINTS: No acute fracture. No dislocation. SOFT TISSUES: Umbilical hernia containing fat. VASCULATURE: Unremarkable. No abdominal aortic aneurysm. LYMPH NODES: Unremarkable. No enlarged lymph nodes. CT/Abdomen/Pelvis without Cont IMPRESSION: 1. Small esophageal hiatal hernia. 2. Hepatomegaly with fatty infiltration. 3. Umbilical hernia containing fat. 4. Fecal retention in the colon consistent with constipation. 5. 3 mm left renal pelvic calculus without obstruction. Reading Location: [id number]
--- NOTE | 2025-01-11 17:53 | EX.ED.DYSGE1 ---
HPI History of Present Illness Chief Complaint: Flank Pain Narrative Narrative: 39-year-old female past surgical history of hysterectomy 10 years ago, previously of kidney stones and ureterolithiasis, sees Dr. Nair. She presents with 4 days of what started as left flank pain and now has bilateral flank pain. She thinks she may have a bladder infection on top of the kidney stone. She denies any fevers or chills, no nausea or vomiting but complains of bilateral flank pain. She has had intermittent hematuria over the last 4 days as well. She states it has been almost a year since she had her last kidney stone and she has been drinking more water. This feels similar. No exacerbating or alleviating factors. [facility] Medical History History of recurrent UTI (urinary tract infection) Allergic rhinitis Former tobacco use Kidney stones Home Medications ?Medication ?Instructions ?Recorded ?Last Taken ?Type omeprazole 40 mg capsule,delayed 40 mg PO DAILY gerd 12/09/21 10/23/24 History release albuterol sulfate 90 mcg/actuation 1 - 2 puff inhalation Q4H PRN PRN 04/04/23 10/24/24 Rx aerosol inhaler (Ventolin HFA) Wheezing #1 device loratadine 10 mg tablet (Allergy 10 mg PO DAILY allergy 10/24/24 10/23/24 History Relief (loratadine)) melatonin 5 mg capsule 5 mg PO QHS sleep 10/24/24 10/23/24 History prednisone 20 mg tablet 40 mg (2 x 20 mg) PO DAILY #10 tabs 10/26/24 Unknown Rx oxycodone 5 mg tablet 5 mg PO Q6H PRN pain 3 days #12 01/11/25 Unknown Rx tabs Allergy/AdvReac Type Severity Reaction Status Date / Time hydrocodone bitartrate (From Allergy Hives Verified 01/11/25 17:10 [place]) Family History Mother COPD (chronic obstructive pulmonary disease) Lung cancer Surgical History History of umbilical hernia repair History of carpal tunnel surgery History of hysterectomy Social History household members: children Smoking Status: Former smoker how long ago did patient quit smoking: Quit ~ 1 year prior to 10/24/24 evaluation, smoked ~ 1 ppd since teen. alcohol intake: never substance use type: does not use ROS ROS ED ROS Narrative Review of systems positive for left flank pain greater than right. Positive intermittent hematuria x 4 days. More left flank pain and urinary frequency over the last 4 days as well. No fevers or chills, no nausea or vomiting. No problems with bowel movements. EXAM Physical Exam Narrative Exam Narrative: Afebrile. Vital signs noted. Nontoxic-appearing. Cardiovascular examination reveals a regular rate and rhythm. Lungs are clear to auscultation bilaterally. Abdomen is soft and nontender without guarding or rebound. Positive bowel sounds. Questionable CVA tenderness, left. Neurological examination nonfocal and nonlateralizing. Const Vital Signs: 01/11/25 17:08 01/11/25 18:10 Temperature 97.5 F L 97.8 F Temperature Source Oral Oral Pulse Rate 84 72 Respiratory Rate 16 16 Blood Pressure 111/80 107/74 Blood Pressure Mean 90 85 Pulse Ox 98 96 Oxygen Delivery Method Room Air Room Air MDM MDM MDM Narrative Medical decision making narrative: The differential diagnosis includes but not limited to ureterolithiasis versus pyelonephritis versus ureterolithiasis/ureteral colic with cystitis. Comprehensive workup was pursued. She was administered morphine and Toradol for analgesia. I do not feel that a CT is indicated as she is status post hysterectomy remotely. CBC and BMP will be obtained as well as urinalysis and CT imaging without contrast. I reviewed her prior records. I reviewed her laboratory work today and she has a white count of 11.6 which I think is nonspecific and she has chronic leukocytosis when compared to prior laboratories. BMP is remarkable for normal BUN of 13 and creatinine low at 0.66. Urinalysis shows 150 occult blood with 0 WBCs and RBCs 10-25. I do not feel antibiotics are indicated. On review of the CT of the abdomen and pelvis without contrast, she has a 3 mm left renal stone in the renal pelvis, but no evidence of obstruction. At this point in time, repeat examination shows her resting comfortably on the cot. I feel she can be discharged to follow-up with her urologist. She was written for 12 oxycodone tablets which in review of her prescription monitoring program she has tolerated previously. I feel she can be discharged to follow-up. Return instructions to the emergency department were reviewed. Disposition is discharged home in stable condition. History & Record Review Discussion w/independent historian: Patient Additional record(s) reviewed:: Prior ED visit (Received morphine in the past.) and Prior labs Lab Data Attestation: I reviewed the patient's lab results. Labs: Laboratory Results - last 24 hr 01/11/25 17:41 WBC 11.6 H RBC 4.87 Hgb 13.9 Hct 41.6 MCV 85.4 MCH 28.5 MCHC 33.4 RDW Std Deviation 39.3 RDW Coeff of Raeann 12.7 Plt Count 269 MPV 10.9 Immature Gran % (Auto) 0.500 Neut % (Auto) 53.5 Lymph % (Auto) 35.6 [place] % (Auto) 6.5 Eos % (Auto) 3.4 Baso % (Auto) 0.5 Absolute Neuts (auto) 6.2 Absolute Lymphs (auto) 4.14 Nucleated RBC % 0 Platelet Estimate ADEQUATE Sodium 140 Potassium 3.4 Chloride 106 Carbon Dioxide 24.3 Anion Gap 10 BUN 13 Creatinine 0.66 L Estim Creat Clear Calc 108.93 Est GFR (MDRD) Non-Af 115 BUN/Creatinine Ratio 19.0 Glucose 85 Calcium 8.9 Urine Color Yellow Urine Clarity Clear Urine pH 6.0 Ur Specific [place] 1.025 Urine Protein 30 H Urine Glucose (UA) Normal Urine Ketones Negative Urine Occult Blood 150 H Urine Nitrite Negative Urine Bilirubin Negative Urine Urobilinogen 1 H Ur Leukocyte Esterase Negative Urine RBC 10-25 SEEN Urine WBC 0 SEEN Ur Squamous Epith Cells 0-5 SEEN Urine Bacteria RARE Urine Mucus 1+ Radiography Diagnostic Testing: Clinical Impression(s) from Imaging Studies Abdomen/Pelvis CT 01/11/25 17:53 IMPRESSION: 1. Small esophageal hiatal hernia. 2. Hepatomegaly with fatty infiltration. 3. Umbilical hernia containing fat. 4. Fecal retention in the colon consistent with constipation. 5. 3 mm left renal pelvic calculus without obstruction. Reading Location: [id number] Discharge Plan Triage Chief Complaint: Flank Pain Other Complaint: Complaint ED Provider: Rufus Miramontes Dx/Rx/DC Orders Clinical Impression: Kidney stones, Flank pain, Hematuria, Dysuria Instructions: ED Dysuria, Uncertain Cause (Adult), ED Flank Pain, Uncertain Cause, ED Hematuria Prescriptions: New oxycodone 5 mg tablet 5 mg PO Q6H PRN (Reason: pain) 3 Days Qty: 12 0RF No Action omeprazole 40 mg capsule,delayed release(DR/EC) 40 mg PO DAILY albuterol sulfate [Ventolin HFA] 90 mcg/actuation HFA aerosol inhaler 1 - 2 puff inhalation Q4H PRN PRN (Reason: Wheezing) Qty: 1 0RF loratadine [Allergy Relief (loratadine)] 10 mg tablet 10 mg PO DAILY melatonin 5 mg capsule 5 mg PO QHS prednisone 20 mg tablet 40 mg PO DAILY Qty: 10 0RF Primary Care Provider: Ian Mon Referrals: Kierra Nair MD [Med Staff - Active Staff] - As soon as possible Ian Mon MD [Primary Care Provider] - Activity Restrictions/Additional Instructions: Follow-up with urology as soon as possible. Return with fever, increased pain, new or worsening symptoms. Print Language: Mold[place] Disposition Disposition: Home, Self Care
[2025-01-11 18:04] LABS: White Blood Cells 0 SEEN /hpf (0-5)
[2025-01-11 18:06] LABS: Absolute Lymphocyte Count 4.14 X10^3/uL (0.83-4.51); Absolute Neutrophil Count 6.2 X10^3/uL (2.0-7.7); Basophil# 0.06 X10^3/uL; Basophil% 0.5 % (0-1); Eosinophils% 3.4 % (0-5); Hematocrit 41.6 % (37-47); Hemoglobin 13.9 g/dL (12.0-15.0); Lymphocyte # 4.14 X10^3/ul (0.83-4.51); Lymphocyte % 35.6 % (19-41); Mean Corp Hgb Conc 33.4 g/dL (32-36); Mean Corpuscular Hgb 28.5 pg (27.0-32.0); Mean Corpuscular Volume 85.4 fL (81-99); Mean Platelet Vol. 10.9 fl (6.2-12.0); Monocyte# 0.76 X10^3/uL; Monocyte% 6.5 % (0-10); NRBC Flagged by Analyzer 0 % (0-5); Neutrophil % 53.5 % (47-70); POSITIVE MORPHOLOGY YES; Platelet Count 269 K/mm3 (150-450); RBC Distribution Width CV 12.7 % (11.6-14.6); RBC Distribution Width SD 39.3 fl (35.1-43.9); Red Blood Count 4.87 M/mm3 (4.2-5.4); White Blood Count 11.6 K/mm3 (4.4-11.0)
[2025-01-11 18:08] LABS: Color, Urine Yellow (Yellow); Differential Indicated SCAN CRITERIA MET; Glucose, Dipstick Normal (Normal); Ketone-Dipstick Negative (Negative); Leukocyte Esterase-Dipstick Negative /ul (Negative); Nitrite-Dipstick Negative (Negative); Occult Blood-Urine 150 /ul (Negative); Protein-Dipstick 30 mg/dl (Negative); Specific Gravity, Urine 1.025 (1.002-1.030); Urine Bilirubin Dipstick Negative (Negative); Urine Clarity Clear (Clear); Urine Urobilinogen 1 mg/dl (Normal)
[2025-01-11] MEDS: Ketorolac 15 MG/ML Vial IV (18:08)
[2025-01-11] MEDS: Morphine 4 MG/ML Syringe IV (18:08)
[2025-01-11] MEDS: 0.9% Normal Saline (1000mL) 1,000 ML 250 ML IV (18:08)
[2025-01-11 18:10] VITALS: BP 107/74; PULSE 72; RESP 16; TEMP 36.6; O2SAT 96
[2025-01-11 18:20] LABS: Mucous, Urine 1+ /hpf (<or=2+); Red Blood Cells-Urine 10-25 SEEN /hpf (0-5)
[2025-01-11 18:21] LABS: Bacteria RARE /hpf (None Seen); Squamous Epithelial Cells - UA 0-5 SEEN /hpf (5-10)
[2025-01-11 18:38] LABS: Anion Gap 10 (5-15); BUN 13 mg/dL (4-19); Calcium,Total 8.9 mg/dL (7.6-11.0); Carbon Dioxide 24.3 mmol/L (21.0-32.0); Chloride 106 mmol/L (98-108); Creatinine, Serum 0.66 mg/dL (0.70-1.20); EST Glomerular Filtration Rate 115 (>60); Estimated Creatinine Clearance 108.93 ml/min (50-250); Glucose 85 mg/dL (70-99); Potassium 3.4 mmol/L (3.3-5.1); Sodium Level 140 mmol/L (133-145)
[2025-01-11 19:08] VITALS: PULSE 72; RESP 14; O2SAT 97
[2025-01-11 19:11] LABS: Platelet Estimate ADEQUATE (ADEQ)
[2025-01-11 20:29] VITALS: BP 120/79; PULSE 70; RESP 18; TEMP 36.8; O2SAT 100
== END 2025-01-11 20:31 | disposition home or self-care (01) ==
PROVIDERS: Emergency Provider Emergency Medicine; PCP Family Medicine; Visit Provider Emergency Medicine
DX: N20.0 Calculus of kidney (principal); R30.0 Dysuria; Z87.891 Personal history of nicotine dependence; Z90.710 Acquired absence of both cervix and uterus; R31.9 Hematuria, unspecified; Z87.440 Personal history of urinary (tract) infections; Z87.442 Personal history of urinary calculi; K44.9 Diaphragmatic hernia without obstruction or gangrene; R10.9 Unspecified abdominal pain
CPT/HCPCS: 74176; 80048; 81001; 85025; 96361; 96374; 96375; 99283; A4216

== ENCOUNTER 2025-02-12 15:28 | Emergency (ER) | payer MEDICAID, SELFPAY ==
[2025-02-12] VITALS (10 sets, daily range): BP systolic 119–121; BP diastolic 79–88; PULSE 79–86; RESP 14–18; TEMP 36.7–36.8; O2SAT 96–99; BMI 37.9
[2025-02-12 17:01] LABS: Absolute Lymphocyte Count 2.43 X10^3/uL (0.83-4.51); Absolute Neutrophil Count 4.8 X10^3/uL (2.0-7.7); Basophil# 0.06 X10^3/uL; Basophil% 0.7 % (0-1); Eosinophil# 0.21 X10^3/uL; Eosinophils% 2.5 % (0-5); Hematocrit 40.8 % (37-47); Hemoglobin 13.7 g/dL (12.0-15.0); Lymphocyte # 2.43 X10^3/ul (0.83-4.51); Lymphocyte % 29.4 % (19-41); Mean Corp Hgb Conc 33.6 g/dL (32-36); Mean Corpuscular Hgb 28.4 pg (27.0-32.0); Mean Corpuscular Volume 84.6 fL (81-99); Mean Platelet Vol. 10.4 fl (6.2-12.0); Monocyte# 0.72 X10^3/uL; Monocyte% 8.7 % (0-10); NRBC Flagged by Analyzer 0 % (0-5); Neutrophil # 4.83 X10^3/uL (2.7-7.7); Neutrophil % 58.5 % (47-70); Platelet Count 232 K/mm3 (150-450); RBC Distribution Width CV 12.5 % (11.6-14.6); RBC Distribution Width SD 37.9 fl (35.1-43.9); Red Blood Count 4.82 M/mm3 (4.2-5.4); White Blood Count 8.3 K/mm3 (4.4-11.0)
[2025-02-12 17:21] LABS: Anion Gap 12 (5-15); BUN 9 mg/dL (4-19); BUN/Creat Ratio 15.2 RATIO (10-20); Calcium,Total 8.7 mg/dL (7.6-11.0); Carbon Dioxide 22.8 mmol/L (21.0-32.0); Chloride 106 mmol/L (98-108); Creatinine, Serum 0.61 mg/dL (0.70-1.20); EST Glomerular Filtration Rate 118 (>60); Estimated Creatinine Clearance 116.71 ml/min (50-250); Glucose 77 mg/dL (70-99); Potassium 3.5 mmol/L (3.3-5.1); Sodium Level 141 mmol/L (133-145)
--- NOTE | 2025-02-12 17:36 | EX.ED.DYSGE1 ---
HPI History of Present Illness Chief Complaint: Shortness of Breath Narrative Narrative: Patient is a 39-year-old female past medical history of recurrent UTIs, kidney stones, former tobacco use quit a year ago who presents to the emergency department chief complaint of cough and shortness of breath. Patient states that for the last 3 days she has had cough and shortness of breath. States that everybody at work has been ill recently. States that she has a breathing machine for treatments at home and has been using this she states that she has enough of her inhaler and this at home. States that she has not been on any steroids recently. Patient states that her cough is not productive states that nothing will come up. Patient denies any history of blood clots denies any recent travel history [facility] Medical History History of recurrent UTI (urinary tract infection) Allergic rhinitis Former tobacco use Kidney stones Home Medications ?Medication ?Instructions ?Recorded ?Last Taken ?Type omeprazole 40 mg capsule,delayed 40 mg PO DAILY gerd 12/09/21 10/23/24 History release albuterol sulfate 90 mcg/actuation 1 - 2 puff inhalation Q4H PRN PRN 04/04/23 10/24/24 Rx aerosol inhaler (Ventolin HFA) Wheezing #1 device loratadine 10 mg tablet (Allergy 10 mg PO DAILY allergy 10/24/24 10/23/24 History Relief (loratadine)) naproxen sodium 220 mg capsule 220 mg PO DAILY 02/12/25 Unknown History (Aleve) prednisone 50 mg tablet 50 mg PO DAILY 4 days #4 tabs 02/12/25 Unknown Rx Allergy/AdvReac Type Severity Reaction Status Date / Time hydrocodone bitartrate (From Allergy Hives Verified 02/12/25 15:29 [place]) Family History Mother COPD (chronic obstructive pulmonary disease) Lung cancer Surgical History History of umbilical hernia repair History of carpal tunnel surgery History of hysterectomy Social History household members: children Smoking Status: Former smoker how long ago did patient quit smoking: Quit ~ 1 year prior to 10/24/24 evaluation, smoked ~ 1 ppd since teen. alcohol intake: never substance use type: does not use ROS ROS ED ROS Narrative Constitutional: Denies fevers, chills, headaches, lightness, dizziness Eyes: Denies change in vision double vision blurry vision Cardiovascular: Denies chest pain or palpitations Respiratory: Complains of dry cough as noted above and shortness of breath Abdomen: Denies nausea vomiting diarrhea : Denies urinary symptoms Neurological: Denies numbness, weakness, tingling Musculoskeletal: Denies back pain Skin: Denies rashes or lesions EXAM Physical Exam Narrative Exam Narrative: General: Patient lying in bed rest comfortably did not appear to be acute distress Head: Atraumatic, normocephalic Eyes: PERRL bilaterally, EOMI bilateral, no conjunctival injection noted Neck: Soft, supple, trachea midline Cardiovascular: Regular rate and rhythm no murmurs gallops rubs noted Respiratory: Patient has mild end expiratory wheezing noted on the right side clear to auscultation on the left side Abdomen: Soft, nondistended, nontender to palpation Extremities: +5/5 strength noted in the bilateral upper and lower extremities, no pedal edema on exam Neurological: Patient following commands knew that she was at [facility] years 2024 Skin: Warm, dry, intact no rashes or lesions noted Const Vital Signs: 02/12/25 15:30 02/12/25 15:32 02/12/25 15:33 Temperature 98.1 F 98.1 F Temperature Source Oral Oral Pulse Rate 85 85 Respiratory Rate 18 18 Respiratory Effort Respiratory Depth Respiratory Pattern Blood Pressure 119/88 H 119/88 H Blood Pressure Mean 98 98 Pulse Ox 98 98 99 Oxygen Delivery Method Room Air Room Air Room Air 02/12/25 15:33 02/12/25 16:32 02/12/25 17:00 Temperature 98.2 F 98.2 F Temperature Source Oral Oral Pulse Rate 80 79 Respiratory Rate 15 14 Respiratory Effort Respiratory Depth Respiratory Pattern Blood Pressure 121/79 H 121/79 H Blood Pressure Mean 93 93 Pulse Ox 99 97 98 Oxygen Delivery Method Room Air Room Air Room Air 02/12/25 17:21 02/12/25 17:46 02/12/25 17:56 Temperature Temperature Source Pulse Rate 83 86 Respiratory Rate 17 16 Respiratory Effort Normal Respiratory Depth Normal Respiratory Pattern Normal Normal Blood Pressure 119/81 H Blood Pressure Mean 93 Pulse Ox 96 Oxygen Delivery Method Room Air MDM MDM MDM Narrative Medical decision making narrative: Patient is a 31-year-old female who presents to the emerged part with a chief complaint of cough and shortness of breath. On the differential diagnosis includes but not limited to upper respiratory infection, viral etiology, pneumonia, COPD exacerbation. Once workup is obtained reviewed she will be reevaluated. Patient be given DuoNeb and oral prednisone. Patient refused her chest x-ray as she states that she has been here for 3 hours already and did not want to be here in another 2 hours and is refusing the chest x-ray she states that if she gets worse she will come back. Patient's CBC was reviewed showed no evidence leukocytosis white blood count normal 8.3, hemoglobin 13.7, plate count of 232. Patient's sodium normal 141, potassium normal 3.5, creatinine was 0.61. Patient ambulated well here in the emergency department no evidence hypoxia nor tachycardia. Patient will be placed on prednisone for the next 4 days as she was given her first dose here and she states that she has plenty of inhalers/breathing treatments at home. She states that she will return with worsening symptoms or other concerns. She is feeling better all course concerns answered she will be discharged home in stable condition. Lab Data Labs: Laboratory Results - last 24 hr 02/12/25 16:40 WBC 8.3 RBC 4.82 Hgb 13.7 Hct 40.8 MCV 84.6 MCH 28.4 MCHC 33.6 RDW Std Deviation 37.9 RDW Coeff of Raeann 12.5 Plt Count 232 MPV 10.4 Immature Gran % (Auto) 0.200 Neut % (Auto) 58.5 Lymph % (Auto) 29.4 [place] % (Auto) 8.7 Eos % (Auto) 2.5 Baso % (Auto) 0.7 Absolute Neuts (auto) 4.8 Absolute Lymphs (auto) 2.43 Nucleated RBC % 0 Sodium 141 Potassium 3.5 Chloride 106 Carbon Dioxide 22.8 Anion Gap 12 BUN 9 Creatinine 0.61 L Estim Creat Clear Calc 116.71 Est GFR (MDRD) Non-Af 118 BUN/Creatinine Ratio 15.2 Glucose 77 Calcium 8.7 Discharge Plan Triage Chief Complaint: Shortness of Breath ED Provider: Ry Garcia Dx/Rx/DC Orders Clinical Impression: Cough, Shortness of breath Prescriptions: New prednisone 50 mg tablet 50 mg PO DAILY 4 Days Qty: 4 0RF No Action omeprazole 40 mg capsule,delayed release(DR/EC) 40 mg PO DAILY albuterol sulfate [Ventolin HFA] 90 mcg/actuation HFA aerosol inhaler 1 - 2 puff inhalation Q4H PRN PRN (Reason: Wheezing) Qty: 1 0RF naproxen sodium [Aleve] 220 mg capsule 220 mg PO DAILY loratadine [Allergy Relief (loratadine)] 10 mg tablet 10 mg PO DAILY Primary Care Provider: Ian Mon Referrals: Ian Mon MD [Primary Care Provider] - Activity Restrictions/Additional Instructions: Follow-up with your doctor in outpatient setting. Take steroids as prescribed. Use inhalers and breathing treatments at home as prescribed. Return with any other concerns. Your blood work did not show any acute findings here today. You likely have a viral illness causing your symptoms. Print Language: Macedonian Disposition Disposition: Home, Self Care
[2025-02-12] MEDS: Ipratropium/Albuterol Sulfate 3 ML AMPUL.NEB INHALATION (17:43)
[2025-02-12] MEDS: predniSONE 20 MG Tablet 60 MG PO (17:55)
== END 2025-02-12 18:24 | disposition home or self-care (01) ==
PROVIDERS: Emergency Provider Emergency Medicine; PCP Family Medicine; Visit Provider Emergency Medicine
DX: R06.02 Shortness of breath (principal); Z87.891 Personal history of nicotine dependence; R05.9 Cough, unspecified; Z87.440 Personal history of urinary (tract) infections; Z87.442 Personal history of urinary calculi; Z90.710 Acquired absence of both cervix and uterus
CPT/HCPCS: 80048; 85025; 94640; 94760; 99283; A4216

== ENCOUNTER 2025-09-12 18:11 | Emergency (ER) | payer MEDICAID, SELFPAY ==
[2025-09-12 18:13] VITALS: BP 101/65; PULSE 107; RESP 18; TEMP 37.1; O2SAT 98; BMI 33.9
[2025-09-12 18:21] VITALS: O2SAT 98
--- NOTE | 2025-09-12 18:41 | EKG12_ITS ---
Test Reason : SOB Blood Pressure : */* mmHG Vent. Rate : 86 BPM Atrial Rate : 86 BPM P-R Int : 140 ms QRS Dur : 72 ms QT Int : 388 ms P-R-T Axes : 65 72 66 degrees QTcB Int : 464 ms Normal sinus rhythm Normal ECG Confirmed by Je Martinez [id number]), map editor WILDA MICHAELS ([id number]) on 09/13/2025 8:25:42 AM Referred By: Confirmed By: Je Martinez
--- NOTE | 2025-09-12 18:45 | EDS_ITS ---
HPI History of Present Illness Chief Complaint: Shortness of Breath Informant: patient Narrative Narrative: Patient is a 40-year-old female history of tobacco use and prior admission for hypoxia/with rhinovirus in October 2024. She is presenting today with 2 days of generally feeling sick. She has been weak and had a mild cough. She had a little bit of intermittent wheezing and her voice has been hoarse. Denies any sputum production. States has had some pain in her left upper back associate with this. She is been checking her pulse ox at home and this can to 88% at rest. Today she was taken out of shower she started get blurry vision and feel lightheaded. Her children insisted she come in for further evaluation. 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 She denies any fevers. Has any swing of her legs or history of DVT/PE. Denies any nausea or vomiting. Denies any chest pain. Did recently start smoking tobacco again. [facility] Medical History History of recurrent UTI (urinary tract infection) Allergic rhinitis Former tobacco use Kidney stones Home Medications ?Medication ?Instructions ?Recorded ?Last Taken ?Type omeprazole 40 mg capsule,delayed 40 mg PO DAILY gerd 0 12/09/21 10/23/24 History release albuterol sulfate 90 mcg/actuation 1 - 2 puff inhalati on Q4H PRN PRN 04/04/23 10/24/24 Rx aerosol inhaler (Ventolin HFA) Wheezing #1 device loratadine 10 mg tablet (Allergy 10 mg PO DAILY allerg y 10/24/24 10/23/24 History Relief (loratadine)) naproxen sodium 220 mg capsule 220 mg PO DAILY 5 Unknown History (Aleve) prednisone 50 mg tablet 50 mg PO DAILY 4 days #4 tab s 02/12/25 Unknown Rx Allergy/AdvReac Type Severity Reaction Status Date / Time hydrocodone bitartrate (From Allergy Hives Verified 09/12/25 18:13 [place]) Family History Mother COPD (chronic obstructive pulmonary disease) Lung cancer Surgical History History of umbilical hernia repair History of carpal tunnel surgery History of hysterectomy Social History household members: children Smoking Status: Current every day smoker tobacco type: cigarettes how long ago did patient quit smoking: Quit ~ 1 year prior to 10/24/24 evaluatio n, smoked ~ 1 ppd since teen. alcohol intake: never substance use type: does not use ROS ROS ED Constitutional Constitutional ED: Reports other Details: Fatigue ; Denies chills or fever(s) ENT ENT ED: Reports other; Denies rhinorrhea or sore throat Cardiovascular Cardiovascular: Denies chest pain Respiratory/Chest Respiratory/Chest: Reports cough, dyspnea, sputum and other Details: Wheezing Gastrointestinal Gastrointestinal: Denies abdominal pain, nausea or vomiting Genitourinary Genitourinary ED: Denies dysuria or hematuria Musculoskeletal Musculoskeletal: Reports other Details: Left thoracic back pain ; Denies arthralgias or myalgias Integumentary Denies rash Neurologic Neurologic: Reports weakness and other Details: Lightheaded Hematologic/Lymphatic Hematologic/Lymphatic: Denies easy bleeding or easy bruising EXAM Physical Exam Const Vital Signs: 09/12/25 18:13 09/12/25 18:21 09/12/25 18:58 Temperature 98.8 F Temperature Source Oral Pulse Rate 107 H Pulse Rate [Lying] 86 Pulse Rate [Sitting (for 1 minute prior to obtaining)] 85 Pulse Rate [Standing (for 1 minute prior to obtaining)] 92 Respiratory Rate 18 Respiratory Effort Normal Non-Labored Respiratory Depth Normal Respiratory Pattern Normal Blood Pressure 101/65 Blood Pressure [Lying] 95/65 Blood Pressure [Sitting (for 1 minute prior to obtaining)] 88/65 L Blood Pressure [Standing (for 1 minute prior to obtaining)] 87/66 L Blood Pressure Mean 77 Blood Pressure Mean [Lying] 75 Blood Pressure Mean [Sitting (for 1 minute prior to obtaining)] 72 Blood Pressure Mean [Standing (for 1 minute prior to obtaining)] 73 Pulse Ox 98 Oxygen Delivery Method Room Air Room Air 09/12/25 19:11 09/12/25 22:12 09/12/25 22:43 Temperature 98.3 F Temperature Source Pulse Rate 82 92 92 Pulse Rate [Lying] Pulse Rate [Sitting (for 1 minute prior to obtaining)] Pulse Rate [Standing (for 1 minute prior to obtaining)] Respiratory Rate 16 17 17 Respiratory Effort Respiratory Depth Respiratory Pattern Normal Blood Pressure 113/76 113/76 Blood Pressure [Lying] Blood Pressure [Sitting (for 1 minute prior to obtaining)] Blood Pressure [Standing (for 1 minute prior to obtaining)] Blood Pressure Mean 88 88 Blood Pressure Mean [Lying] Blood Pressure Mean [Sitting (for 1 minute prior to obtaining)] Blood Pressure Mean [Standing (for 1 minute prior to obtaining)] Pulse Ox 98 98 Oxygen Delivery Method Positive well nourished and well developed General Appearance ED: well developed and NAD HEENT Reports TM's clear and dry mucous membranes HEENT Narrative: Normal oropharynx Tympanic Membrane ED: Yes TM's clear Mouth ED: Yes dry mucous membranes Mouth: dry mucous membranes Eyes PERRL Neck supple Chest Wall inspection of chest normal and palpation of chest normal Resp normal respiratory effort Resp Narrative: Slightly diminished breath sounds at the bases. No wheezing. No increased work of breathing. Cardio regular rhythm and no murmurs Rate: tachycardic GI normal to inspection, nondistended, normoactive bowel sounds and non-tender Neuro oriented x3 Sensorium / Orientation: alert Motor Exam: Negative for general weakness Psych mental status grossly normal Skin no rashes or lesions noted and no wounds MDM MDM MDM Narrative Medical decision making narrative: Patient evaluated for 2 days of being sick and getting lightheaded with blurry vision in the shower. Says that she may have had a near syncopal episode. Has had some mild URI symptoms. Does report low oxygen level at home. Differential includes is not limited to infection, pneumonia, asthma exacerbation/reactive airway, symptomatic anemia, dehydration, electrolyte derangement, pulmonary emboli and ACS/pericarditis. Patient is with psych positive emergency room. Is given IV fluids. Is given albuterol treatment. On repeat evaluation she is feeling improved. CBC largely normal. D-dimer is normal suspicion for pulmonary emboli. CMP is also normal as well as her high-sensitivity troponin. She has positive orthostatics but feels much better after IV fluids. I suspect she had a component of dehydrati on. Does admit to me that she has been laying around for the past 2 days and she has been feeling well and she could have got dehydrated that way. Is positive for COVID-19 which is likely the cause of her presentation. Given her history of tobacco use and reactive airway will start on prednisone. As she does not have any increased O2 demands in the ER does not require admission. Chest x-ray viewed by myself as well as radiology does not show any acute infiltrate. I do not think she requires antibiotics. Lab Data Labs: Laboratory Results - last 24 hr 09/12/25 09/12/25 18:53 18:58 WBC 6.7 RBC 5.07 Hgb 14.3 Hct 43.9 MCV 86.6 MCH 28.2 MCHC 32.6 RDW Std Deviation 41.1 RDW Coeff of Raeann 13.0 Plt Count 194 MPV 10.6 Immature Gran % (Auto) 0.400 Neut % (Auto) 52.3 Lymph % (Auto) 31.9 [place] % (Auto) 12.8 H Eos % (Auto) 1.9 Baso % (Auto) 0.7 Absolute Neuts (auto) 3.5 Absolute Lymphs (auto) 2.14 Nucleated RBC % 0 D-Dimer Quant (PE/DVT) 0.36 Sodium 141 Potassium 3.6 Chloride 102 Carbon Dioxide 26.9 Anion Gap 11 BUN 11 Creatinine 0.77 Estim Creat Clear Calc 89.48 Est GFR (MDRD) Non-Af 101 BUN/Creatinine Ratio 14.8 Glucose 90 Calcium 8.8 Troponin T High Sens < 6 Radiography Diagnostic Testing: Clinical Impression(s) from Imaging Studies Chest X-Ray 09/12/25 19:30 IMPRESSION: Hypoventilation without acute cardiopulmonary abnormality. Reading Location: [facility] Rhythm Strip Rhythm Strip: Sinus Rhythm Rate: 86 Ectopy: None EKG Initial EKG: Attestation: I personally reviewed and interpreted this EKG as follows: Interpretation: Sinus Rhythm Comments: Normal sinus rhythm at a rate of 86 bpm Normal axis Normal intervals Normal ST segment Prior EKG tracings: available for review Prior: Changed (Patient no longer tachycardic) Discharge Plan Triage Chief Complaint: Shortness of Breath ED Provider: Farhana Rey Dx/Rx/DC Orders Clinical Impression: COVID-19, Dehydration, Orthostatic hypotension Prescriptions: No Action omeprazole 40 mg capsule,delayed release(DR/EC) 40 mg PO DAILY albuterol sulfate [Ventolin HFA] 90 mcg/actuation HFA aerosol inhaler 1 - 2 puff inhalation Q4H PRN PRN (Reason: Wheezing) Qty: 1 0RF naproxen sodium [Aleve] 220 mg capsule 220 mg PO DAILY prednisone 50 mg tablet 50 mg PO DAILY 4 Days Qty: 4 0RF loratadine [Allergy Relief (loratadine)] 10 mg tablet 10 mg PO DAILY Primary Care Provider: Ian Mon Referrals: Ian Mon MD [Primary Care Provider, [facility]] Print Language: Italian Disposition Disposition: Home, Self Care Discharge Date/Time: 09/12/25 22:43
[2025-09-12 18:58] VITALS: BP 87/66; BP 88/65; BP 95/65; PULSE 85; PULSE 86; PULSE 92
[2025-09-12] MEDS: 0.9% Normal Saline (1000mL) 1,000 ML 1000 ML IV (19:03)
[2025-09-12 19:11] VITALS: PULSE 82; RESP 16
--- OUTSIDE RECORDS SUMMARY | 2025-09-12 19:23 | XMS RPT_ITS | CCD ---
Author Organization [facility] Providers Care Sandblast Or Shotblast Equipment Tender Name Role Phone MARISOL JAMES Unavailable Unavailable [...] Provider Shaniqua Beckford MD Primary Care Provider JOSE BRYANT Attending Unavailable JOSE BRYANT Admitting Unavailable SHANIQUA BECKFORD Primary Care Unavailab VIVIAN Bro Admitting Unavailable VIVIAN GRAY Attending Unavailable SHANIQUA BECKFORD Primary Care Unavailab le Podlogar REAL ESTATE LOAN PROCESSOR.Tootie HAUSER Unavailable Nixon REAL ESTATE LOAN PROCESSOR.Mariama HAUSER Unavailable Dr. Ian Mon MD Primary Care Provider Rufus Miramontes MD Attending Provider Rufus Miramontes MD Emergency Provider [phone] Jason Chopra DO Attending Provider Nav DO, Dr. Gomez Emergency Provider Nikki MCNAMARA, Dr. Soriano Referring Provider [facility] MCNAM[facility], Dr. Soriano Emergency Provider Ivet LARES, Dr. Claudette Marion Admit Provider Ivet LARES, Dr. Claudette Marion Other Provider Kelly LARES, Dr. Anayeli Juarez Attending Provider Kelly LARES, Dr. Anayeli Juarez Other Provider Knoble REAL ESTATE LOAN PROCESSOR.CARDIAC REHABILITATION PROGRAM DIRECTOR, Mariama Unavailable Knoble REAL ESTATE LOAN PROCESSOR.CARDIAC REHABILITATION PROGRAM DIRECTOR, Mariama Unavailable Elieser LARES, Dr. Sosa Primary Care Provider Rufus Miramontes MD Attending Provider Rufus Miramontes MD Emergency Provider Jose MCNAMARA, Dr. Raza Emergency Provider Knoble REAL ESTATE LOAN PROCESSOR.CARDIAC REHABILITATION PROGRAM DIRECTOR, Mariama Unavailable TIERNEY MCCLURE Referring Unavailable BURSLEY, CHRISTOPHER Primary Care Unavailable BURSLEY, CHRISTOPHER Primary Care Unavailable CECILIA LOVE Referring Unavailable BURSLEY, CHRISTOPHER Primary Care Unavailable BURSLEY, CHRISTOPHER Primary Care Unavailable TIERNEY MCCLURE Referring Unavailable BURSLEY, CHRISTOPHER Primary Care Unavailable PODLOGAR, TOOTIE Attending Unavailable BURSLEY, CHRISTOPHER Primary Care Unavailable BURSLEY, CHRISTOPHER Primary Care Unavailable PODLOGAR TOOTIE Referring Unavailable BURSLEY, CHRISTOPHER Primary Care Unavailable BURSLEY, CHRISTOPHER Primary Care Unavailable REN, TIERNEY Attending Unavailable PODLOGARTOOTIE Attending Unavailable BURSLEY, CHRISTOPHER Primary Care Unavailable BURSLEY, CHRISTOPHER Primary Care Unavailable LATHA FATIMA Attending Unavailable BURSLEY, CHRISTOPHER Attending Unavailable BURSLEY, CHRISTOPHER Primary Care Unavailable BURSLEY, CHRISTOPHER Referring Unavailable BURSLEY, CHRISTOPHER Primary Care Unavailable ELENA ALLEN Attending Unavailable BURSLEY, CHRISTOPHER Primary Care Unavailable BURSLEY, CHRISTOPHER Primary Care Unavailable Bo Jordan Referring Unavailjovanna e [facility] Unavailable Kelly, Anayeli Ann Attending Unavailable Claudette Cooney Admitting Unavailable Claudette Cooney Consulting Unavailable [facility] Unavailable Rufus Miramontes Attending Unavailable [facility] Unavailable Ry Garcia Attending Unavailable [facility] Unavailable Assessment, Health Risk Attending Unavaila ble Assessment, Health Risk Referring Unavaila ble Rufus Miramontes Attending Unavailable [facility] Unavailable Claudette Cooney Admitting Unavailable Bo Jordan Referring Unavailabl e [facility] Unavailable Kelly, Anayeli Ann Attending Unavailable Claudette Cooney Consulting Unavailable Kelly, Anayeli Ann Consulting Unavailable Claudette Cooney Attending Unavailable Jason Chopra Attending Unavailable [facility] Unavailable Allergies Allergy Classification Reported Allergen(s) Allergy Type Date of Onset Reaction(s) Facility (20 sources) Acetaminophen / HYDROcodone; Translations: [HYDROCODONE-ACETA MINOPHEN] [facility]; Translations: [hydrocodone bitartrate] Drug Allergy 2 [facility] Medications Current Medications Medication Drug Class(es) Dates Sig (Normalized) Sig (Original) acetaminophen 325 mg / oxyCODONE hydrochloride 5 mg oral tablet (20 sources) Opioid Agonist Start: 01-18-2024 End: 01-30-2024 take 1 tablet by mouth every six hours as needed for pain oxyCODONE-acetami nophen (PERCOCET) 5-325 mg tablet Indications: Ulnar neuropathy at elbow of right upper extremity Take 1 tablet by mouth every 6 hours as needed for pain for up to 7 days. 15 tablet 0 01/23/2024 01/30/2024 Active Start: 08-06-2023 End: 10-24-2024 Oxycodone-Acetaminophen (Per cocet) 5-325 mg tablet Discontinued 1 {tbl} PO Q8H as needed for pain 10 3 August 06, 2023 October 24, 2024 8:24pm Start: 12-17-2019 End: 12-20-2019 Oxycodone-Acetaminophen 1 TA BLET tablet Discontinued 1 {tbl} PO EVERY 6 HOURS NEEDED as needed for Pain 12 3 March 30th, 2020 Hanna 1st, 2020 12:00am December 20, 2019 12:07am Start: 12-17-2019 End: 12-20-2019 take 1 tablet by mouth every six hours as needed Oxycodone-Acetaminophen Discontinued 1 TABLET PO EVERY 6 HOURS NEEDED 12 December 17, 2019 December 20, 2019 12:07am Start: 06-04-2019 End: 06-09-2019 Oxycodone-Acetaminophen 1 TA BLET tablet Discontinued 1 {tbl} PO EVERY 6 HOURS NEEDED as needed for Pain 12 June 04, 2019 June 06, 2019 12:00am June 09, 2019 12:10am Start: 06-04-2019 End: 06-09-2019 take 1 tablet by mouth every six hours as needed Oxycodone-Acetaminophen Discontinued 1 TABLET PO EVERY 6 HOURS NEEDED 08 21June 04, 2019 June 09, 2019 12:10am Start: 03-12-2019 End: 03-17-2019 Oxycodone-Acetaminophen 1 TA BLET tablet Discontinued 1 {tbl} PO EVERY 6 HOURS NEEDED as needed for Pain 12 March 12, 2019 March 14, 2019 12:00am March 17, 2019 12:08am Start: 03-12-2019 End: 03-17-2019 take 1 tablet by mouth every six hours as needed Oxycodone-Acetaminophen Discontinued 1 TABLET PO EVERY 6 HOURS NEEDED 12 March 12, 2019 March 17, 2019 12:08am albuterol 0.83 mg/ml inhalation solution (20 sources) beta2-Adrenergic Agonist Start: 11-28-2024 End: 12-28-2024 take 2.5 mg by inhalation every four hours as needed for dyspnea and wheezing and dyspnea and wheezing albuterol (PROVENTIL) 2.5 mg /3 mL (0.083 %) nebulizer solution Indications: SOB (shortness of breath) , Wheezing Use 3 mL via nebulizer every 4 hours as needed for wheezing/shortness of breath. 540 mL 1 11/28/2024 Active Start: 11-28-2024 End: 11-28-2024 take 5 mL by mouth four times daily albuterol (PROVENTIL) 2 mg/5 mL syrup Indications: SOB (shortness of breath) , Wheezing Take 5 mL by mouth four times daily. 600 mL 11/28/2024 11/28/2024 Discontinued Start: 11-20-2024 take 2 puff(s) by in halation every four hours as needed for wheezing albuterol HFA (PROVENTIL HFA, VENTOLIN HFA) 90 mcg/actuation inhaler Inhale 2 Puffs as instructed every 4 hours as needed for wheezing/shortness of breath. 8 g 11/20/2024 Active Start: 06-01-2023 take 1 puff(s) by in halation every four hours as needed Albuterol Sulfate (Ventolin Hfa) 90 mcg/actuation HFA aerosol inhaler Active 2 PUFF INHALATION EVERY 4 HOURS NEEDED October 03, 2023 1:00am Start: 05-29-2023 take 2 puff(s) by in halation every six hours as needed albuterol HFA (PROAIR HFA) 90 mcg/actuation inhaler Indications: Viral URI with cough Inhale 2 Puffs as instructed every 6 hours as needed. 1 Each 05/29/2023 Active Start: 10-23-2022 End: 10-24-2024 Albuterol Sulfate (Ventolin Hfa) 90 mcg/actuation HFA aerosol inhaler Discontinued 2 NMA INHALATION EVERY 4 HOURS NEEDED as needed for Wheezing 1 October 12, 2024 1:00am October 24, 2024 8:24pm Start: 10-23-2022 End: 04-04-2023 take 1 puff(s) by inhalation every four hours as needed Albuterol Sulfate (Ventolin Hfa) 90 mcg/actuation HFA aerosol inhaler Active 2 PUFF INHALATION EVERY 4 HOURS NEEDED October 03, 2023 12:00am Start: 10-14-2022 take 2 puff(s) by in halation every six hours as needed albuterol HFA (PROAIR HFA) 90 mcg/actuation inhaler Inhale 2 Puffs as instructed every 6 hours as needed. 1 Each 0 10/14/2022 Active Start: 06-23-2022 End: 12-01-2022 take 2 puff(s) by inhalation every four hours as needed for wheezing albuterol HFA (VENTOLIN HFA) 90 mcg/actuation inhaler Indications: Wheezing Inhale 2 Puffs as instructed every 4 hours as needed for wheezing/shortness of breath. 18 g 0 06/23/2022 12/01/2022 Discontinued (Duplicate Entry) Start: 06-26-2021 End: 06-26-2021 albuterol 2.5 mg /3 mL (0.08 3 %) 2.5 mg (PROVENTIL) Start: 06-26-2021 End: 10-21-2021 take 2 puff(s) by inhalation every four hours as needed for wheezing albuterol HFA (PROVENTIL HFA, VENTOLIN HFA) 90 mcg/actuation inhaler Inhale 2 Puffs as instructed every 4 hours as needed for wheezing/shortness of breath. 18 g 06/26/2021 10/21/2021 Discontinued (Course of therapy completed) Comment on above: Inhale 2 Puffs as in structed every 4 hours as needed for wheezing/shortness of breath. Inhale 2 Puffs as in structed every 6 hours as needed. amoxicillin 875 mg oral tablet (15 sources) Penicillin-class Antibacterial Start: 11-14-19 End: 11-25-19 take 1 tablet by mouth twice daily amoxicillin (AMOXIL) 875 mg tablet Indications: Tooth ache Take 1 tablet by mouth twice daily for 10 days. 20 tablet 0 11/14/2022 11/24/2022 Active Start: 06-29-2021 End: 06-30-2021 take 1.25 capsules by mouth twice daily Amoxicillin 500 mg capsule Discontinued 500 mg PO TWICE A DAY June 29, 2021 12:00am June 30, 2021 10:18am Started on 06/26, to use for 7 days. Comment on above: [facility] 10 [facility]. amoxicillin 875 mg / clavulanate 125 mg oral tablet (2 sources) Penicillin-class Antibacterial Start: End: take 1 tablet by mouth twice daily amoxicillin-clavul anate potassium (AUGMENTIN) 875-125 mg per tablet Take 1 tablet by mouth two times a day for 7 days. 14 tablet 0 12/10/2023 12/17/2023 Active Start: 10-19-2023 End: 10-26-2023 take 1 tablet by mouth twice daily amoxicillin-clavulanate potassium (AUGMENTIN) 875-125 mg per tablet Take 1 tablet by mouth two times a day for 7 days. 14 tablet 0 10/19/2023 10/26/2023 Comment on above: Take 1 tablet by [facility] two times a day for 7 days. Budesonide / formoterol (7 sources) Corticosteroid, beta2-Adrenergic Agonist Start: 11-29-19 take 2 puff(s) by inhalation twice daily budesonide-formotero l (SYMBICORT) 160-4.5 mcg/actuation inhaler Indications: SOB (shortness of breath) , Wheezing Inhale 2 Puffs as instructed two times a day. 10.2 Each 1 11/28/2024 Active enteric contrast (will be provided with radiology test) (3 sources) Start: 12-10-19 End: 12-11-19 enteric contrast (will be provided with radiology test) Indications: Epigastric pain For CT ABD/PEL W IVCON Routine order Administer, As Directed One Time Only, via Oral, Rectal, both Oral and Rectal, Enteric Tube, Stoma or Indwelling Catheter, Enteric Contrast as designated per enteric contrast guidelines 1 Each 0 12/09/2021 12/10/2021 Active Comment on above: For CT ABD/PEL W IVC ON Routine order Administer, As Directed One Time Only, via Oral, Rectal, both Oral and Rectal, Enteric Tube, Stoma or Indwelling Catheter, Enteric Contrast as designated per enteric contrast guidelines Inhalational Spacing Device (2 sources) Start: 11-21-19 End: 11-21-19 Inhalational Spacing Device 1 Device one time only for 1 dose. 1 Each 11/20/2024 11/20/2024 Active Start: 06-26-2021 End: 06-26-2021 Inhalational Spacing Device 1 Device one time only for 1 dose. 1 Each 06/26/2021 06/26/2021 iv contrast (will be provided with radiology test) (3 sources) Start: 12-09-2021 End: 12-10-2021 iv contrast (will be provided with radiology test) Indications: Epigastric pain CT ABD/PEL -Inject, intravenously, once for 1 dose.No IV access, insert saline lock prior to the beginning of sedation, infusion, injection of imaging exam. Discontinue saline lock post exam. If Pt. has a central line or IVAD, may access for administration according to line specific nursing protocol. Once exam is complete flush line and de-access according to line specific nursing protocol in the CT contrast administration guidelines link. 1 Each 0 12/09/2021 12/10/2021 Active Comment on above: CT ABD/PEL -Inject, intravenously, once for 1 dose.No IV access, insert saline lock prior to the beginning of sedation, infusion, injection of imaging exam. Discontinue saline lock post exam. If Pt. has a central line or IVAD, may access for administration according to line specific nursing protocol. Once exam is complete flush line and de-access according to line specific nursing protocol in the CT contrast administration guidelines link. loratadine 10 mg oral tablet (20 sources) Start: 05-27-2025 take 1 tablet by mouth once daily loratadine (CLARITIN) 10 mg tablet Indications: Watery eyes Take 1 tablet by mouth once daily. 30 tablet 11 05/27/2025 Active Start: 05-24-2023 End: 05-24-2025 take 1 tablet by mouth once daily loratadine (CLARITIN) 10 mg tablet Indications: Watery eyes Take 1 tablet by mouth once daily. 30 tablet 11 07/16/2024 05/24/2025 Discontinued Start: 12-01-2022 End: 05-22-2023 take 1 tablet by mouth once daily loratadine (CLARITIN) 10 mg tablet Indications: Rhinorrhea , Nasal congestion Take 1 tablet by mouth once daily. 30 tablet 11 12/01/2022 05/22/2023 Discontinued Comment on above: Take 1 tablet by [facility] once daily. naproxen sodium 220 mg oral capsule (20 sources) Nonsteroidal Anti-inflammatory Drug Start: 02-12-2025 take 1 capsule by mouth once daily Naproxen Sodium (Aleve) 220 mg capsule Active 220 mg PO DAILY February 12, 2025 12:00am Start: 04-06-2019 End: 10-24-2024 naproxen (NAPROSYN) 500 mg t ablet TWICE DAILY NEEDED 04/06/2019 Active End: 01-27-2023 take 1 capsule by mouth once daily naproxen sodium 220 mg cap Take 220 mg by mouth once daily. 0 01/27/2023 Discontinued (Changing Therapy/Dosage Form) End: 06-17-2022 take 1 tablet by mouth twice daily at mealtime naproxen sodium (ALEVE) 220 mg tablet Take 220 mg by mouth twice daily with meals. 0 06/17/2022 Discontinued (Changing Therapy/Dosage Form) Comment on above: Take 1 tablet by [facility] twice daily with meals for 14 days. Take with food. Take 220 mg by mouth twice daily with meals. Take 220 mg by mouth once daily. omeprazole 40 mg delayed release oral capsule (20 sources) Proton Pump Inhibitor Start: End: take 1 capsule by mouth once daily omeprazole (PRILOSEC) 40 mg capsule Indications: Epigastric pain , Gastroesophageal reflux disease, unspecified whether esophagitis present Take 1 capsule by mouth once daily. 90 capsule 1 05/27/2025 11/23/2025 Active Start: 12-07-2021 End: 02-19-2025 take 1 capsule by mouth once daily Omeprazole 40 mg capsule,delayed release(DR/EC) Active 40 mg PO DAILY December 09, 2021 12:00am Comment on above: Take 1 capsule by mo [facility] once daily. ondansetron 4 mg disintegrating oral tablet (20 sources) Serotonin-3 Receptor Antagonist Start: 08-22-20 End: 08-29-20 take 1 tablet by mouth every twelve hours as needed for nausea ondansetron orally disintegrating (ZOFRAN ODT) 4 mg disintegrating tablet Indications: Nausea and vomiting, unspecified vomiting type Take 1 tablet by mouth every 12 hours as needed for nausea/vomiting for up to 7 days. 14 tablet 0 08/22/2023 08/29/2023 Active Start: 11-15-2022 End: 12-01-2022 take 1 tablet by mouth every six hours as needed ondansetron orally disintegrating (ZOFRAN ODT) 4 mg disintegrating tablet Take 1 tablet by mouth every 6 hours as needed for nausea/vomiting. 15 tablet 0 11/15/2022 12/01/2022 Discontinued (Course of therapy completed) Start: 12-09-2021 End: 07-28-2022 take 1 tablet by mouth every six hours as needed ondansetron orally disintegrating (ZOFRAN ODT) 4 mg disintegrating tablet Take 1 tablet by mouth every 6 hours as needed for nausea/vomiting. 20 tablet 12/09/2021 07/28/2022 Discontinued (Course of therapy completed) Comment on above: Take 1 tablet by [facility] every 6 hours as needed for nausea/vomiting. Take 1 tablet by [facility] every 12 hours as needed for nausea/vomiting for up to 7 days. oseltamivir 75 mg oral capsule (1 source) Neuraminidase Inhibitor Start: 2024 End: 2024 take 1 capsule by mouth twice daily oseltamivir (TAMIFLU) 75 mg capsule Indications: URI, acute Take 1 capsule by mouth two times a day for 5 days. 10 capsule 10/22/2024 10/27/2024 Active phenazopyridine hydrochloride 200 mg oral tablet (3 sources) Start: 2021 take 1 tablet by mouth three times daily Phenazopyridine (Pyridium) 200 MG tablet Active 200 MG PO THREE TIMES A DAY January 25, 2022 11:00pm predniSONE 50 mg oral tablet (20 sources) Start: 2024 take 1 tablet by mouth once daily Prednisone 50 mg tablet Active 50 mg PO DAILY 12 21February 12, 2025 12:00am Start: 11-19-2024 End: 11-24-2024 take 5 tablets by mouth once daily, then take 4 tablets by mouth once daily, then take 3 tablets by mouth once daily, then take 2 tablets by mouth once daily, then take 1 tablet by mouth once daily predniSONE (DELTASONE) 10 mg tablet Indications: Wheezing Take 5 tablets by mouth once daily for 1 day, THEN 4 tablets once daily for 1 day, THEN 3 tablets once daily for 1 day, THEN 2 tablets once daily for 1 day, THEN 1 tablet once daily for 1 day. 15 tablet 11/19/2024 11/24/2024 Active Start: 10-26-2024 End: 02-12-2025 take 2 tablets by mouth once daily Prednisone 20 mg tablet Discontinued 40 mg PO DAILY October 26, 2024 1:00am February 12, 2025 5:57pm Start: 12-28-2023 End: 01-02-2024 take 5 tablets by mouth once daily, then take 4 tablets by mouth once daily, then take 3 tablets by mouth once daily, then take 2 tablets by mouth once daily, then take 1 tablet by mouth once daily predniSONE (DELTASONE) 10 mg tablet Indications: Wheezing Take 5 tablets by mouth once daily for 1 day, THEN 4 tablets once daily for 1 day, THEN 3 tablets once daily for 1 day, THEN 2 tablets once daily for 1 day, THEN 1 tablet once daily for 1 day. 15 tablet 0 12/28/2023 01/02/2024 Start: 12-10-2023 End: 12-28-2023 predniSONE (DELTASONE) 10 mg tablet Take 4 tabs daily for 3 days, then 2 tabs daily for 3 days, then 1 tab daily for 3 days with food. 21 tablet 0 12/10/2023 12/28/2023 Discontinued Start: 10-03-2023 End: 10-24-2024 take 3 tablets by mouth once daily Prednisone 20 mg tablet Discontinued 60 mg PO DAILY October 03, 2023 1:00am October 24, 2024 8:24pm Start: 10-03-2023 take 60 mg by mouth once daily Prednisone Active 60 MG PO DAILY October 03, 2023 1:00am Start: 06-01-2023 End: 10-24-2024 take 1 tablet by mouth once daily Prednisone 50 mg tablet Discontinued 50 mg PO DAILY 01 21October 12, 2024 1:00am October 24, 2024 8:24pm Start: 10-14-2022 End: 10-19-2022 take 2 tablets by mouth once daily predniSONE (DELTASONE) 20 mg tablet Take 2 tablets by mouth once daily for 5 days. 10 tablet 0 10/14/2022 10/19/2022 Active Start: 06-23-2022 End: 07-28-2022 take 1 tablet by mouth once daily predniSONE (DELTASONE) 50 mg Indications: Wheezing Take 1 tablet by mouth once daily. 5 tablet 0 06/23/2022 07/28/2022 Discontinued (Course of therapy completed) Start: 05-05-2022 End: 05-10-2022 take 2 tablets by mouth once daily predniSONE (DELTASONE) 20 mg tablet Take 2 tablets by mouth once daily for 5 days. 10 tablet 0 05/05/2022 05/10/2022 Active Comment on above: Take 2 tablets by mo [facility] once daily for 5 days. [facility] Take 4 tabs daily fo r 3 days, then 2 tabs daily for 3 days, then 1 tab daily for 3 days with food. Take 5 tablets by mo [facility] once daily for 1 day, THEN 4 tablets once daily for 1 day, THEN 3 tablets once daily for 1 day, THEN 2 tablets once daily for 1 day, THEN 1 tablet once daily for 1 day. sulfamethoxazole 800 mg / trimethoprim 160 mg oral tablet (3 sources) Dihydrofolate Reductase Inhibitor Antibacterial, Sulfonamide Antimicrobial Start: take 1 tablet by mouth twice daily Sulfamethoxazo le-Trimethopri m (Bactrim Ds) 800-160 mg tablet Active 1 TABLET PO TWICE A DAY 14 January 25, 2022 11:00pm Completed/Discontinued Medications Medication Drug Class(es) Dates Sig (Normalized) Sig (Original) azelastine hydrochloride 0.137 mg/actuat metered dose nasal spray (9 sources) Histamine-1 Receptor Antagonist Start: 10-23-2022 End: 10-24-2024 Azelastine 137 mcg (0.1 %) aerosol,spray Discontinued 2 NMA INTRANASAL TWICE A DAY October 23, 2022 1:00am October 24, 2024 8:24pm administer into each nostril Start: 10-23-2022 take 1 spray(s) nasa l route twice daily Azelastine Active 2 SPRAY INTRANASAL TWICE A DAY October 23, 2022 1:00am administer into each nostril benzonatate 100 mg oral capsule (12 sources) Non-narcotic Antitussive Start: 01-14-2022 End: 06-07-2022 take 1 capsule by mouth every eight hours as needed benzonatate (TESSALON PERLES) 100 mg capsule Take 1 capsule by mouth three times daily as needed for cough. 21 capsule 01/14/2022 06/07/2022 Discontinued Start: 06-26-2021 End: 10-21-2021 benzonatate (TESSALON PERLE) 100 mg capsule Take 1-2 capsules tid prn, no more than 6 in 24 hours. 30 capsule 06/26/2021 10/21/2021 Discontinued (Course of therapy completed) Comment on above: Take 1 capsule by [facility] three times daily as needed for cough. 30 ml bupivacaine hydrochloride 5 mg/ml injection (1 source) Amide Local Anesthetic Start: 12-29-19 End: 12-29-19 BUPivacaine (PF) 0.5 % (5 mg/mL) 1 mL injection 12 hr buPROPion hydrochloride 150 mg extended release oral tablet (1 source) Aminoketone Start: 09-02-20 End: 10-21-19 buPROPion SR (WELLBUTRIN SR) 150 mg 12 hr tablet Indications: Cigarette nicotine dependence without complication Take one tablet daily for three days then increase to one tablet twice a day 60 tablet 09/02/2021 10/21/2021 Discontinued (Discontinued by Patient) cephalexin 500 mg oral capsule (4 sources) Cephalosporin Antibacterial Start: 10-10-19 End: 10-24-19 take 1 capsule by mouth three times daily Cephalexin 500 mg capsule Discontinued 500 mg PO THREE TIMES A DAY October 10, 2023 1:00am October 24, 2024 8:24pm codeine phosphate 2 mg/ml / promethazine hydrochloride 1.25 mg/ml oral solution (9 sources) Opioid Agonist, Phenothiazine Start: 10-23-19 End: 10-24-19 take 1 mL by mouth four times daily as needed for cough Promethazine-Codeine 6.25-10 mg/5 mL syrup Discontinued 5 mL PO 4 TIMES DAILY NEEDED as needed for cough 140 7 October 23, 2022 4:36am October 24, 2024 8:24pm Start: 10-23-2022 take 1 mL by mouth f our times daily as needed Promethazine-Codeine Active 5 ML PO 4 TIMES DAILY NEEDED 140 7 October 23, 2022 4:36am doxycycline monohydrate 100 mg oral capsule (9 sources) Tetracycline-class Drug Start: 10-23-2022 End: 10-24-2024 take 1 capsule by mouth twice daily Doxycycline Monohydrate 100 mg capsule Discontinued 100 mg PO TWICE A DAY October 23, 2022 1:00am October 24, 2024 8:24pm erythromycin 0.005 mg/mg ophthalmic ointment (13 sources) Macrolide, Macrolide Antimicrobial Start: 04-29-2020 End: 05-06-2020 Erythromycin 1 APPLIC ointment Discontinued 1 NMA EACH EYE THREE TIMES A DAY 09 25April 29, 2020 12:00am May 05, 2020 12:00am May 06, 2020 12:02am Start: 04-29-2020 End: 05-06-2020 Erythromycin Discontinued 1 APPLIC EACH EYE THREE TIMES A DAY 09 25April 29, 2020 12:00am May 06, 2020 12:02am etodolac 400 mg oral tablet (20 sources) Nonsteroidal Anti-inflammatory Drug Start: 01-27-2023 End: 07-26-2024 take 1 tablet by mouth twice daily etodolac (LODINE) 400 mg tablet Take 1 tablet by mouth twice daily. 60 tablet 1 01/27/2023 07/26/2024 Discontinued (Discontinued by Patient) Comment on above: [facility] fluticasone propionate 0.05 mg/actuat metered dose nasal spray (20 sources) Corticosteroid Start: 09-26-2023 End: 07-26-2024 take 2 spray(s) by mouth once daily fluticasone (FLONASE) 50 mcg/actuation nasal spray Indications: Rhinorrhea , Nasal congestion Use 2 Sprays in each nostril once daily. Rinse mouth after use. 16 g 1 09/26/2023 07/26/2024 Discontinued (Discontinued by Patient) Start: 12-01-2022 take 2 spray(s) by m [facility] once daily fluticasone (FLONASE) 50 mcg/actuation nasal spray Indications: Rhinorrhea , Nasal congestion Use 2 Sprays in each nostril once daily. Rinse mouth after use. 16 g 1 12/01/2022 Active Start: 06-26-2021 End: 09-16-2021 take 2 spray(s) nasal route once daily fluticasone (FLONASE) 50 mcg/actuation nasal spray Indications: Viral URI Use 2 Sprays in each nostril once daily. 1 Each 06/26/2021 09/16/2021 Discontinued Comment on above: Use 2 Sprays in each nostril once daily. Rinse mouth after use. 12 hr guaiFENesin 600 mg extended release oral tablet (4 sources) Start: 2 End: 2 take 2 tablets by mouth twice daily guaiFENesin (MUCINEX) 600 mg 12 hr tablet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 ARLET NAVARRO ([id number]) 1985 F Date Time Provider Department 06/14/25 2:30 PM LATHA FATIMA During your visit today, we recorded the following information about you: Temperature Pulse Respiration Blood pressure 97.9 degrees 88/minute 18/minute 108/74 Weight 79 kg Latha Fatima APRN.CNP 06/14/2025 3:01 PM Signed [facility] Subjective Arlet Navarro is a 40 year old female. Patient presents with: Diarrhea: Last evening, and vomiting today, cramping, x last evening Possible food poisoning Diarrhea The patient is a 40-year-old female with a history of acid reflux, anxiety, and asthma, presenting for acute onset of abdominal cramping, emesis, and diarrhea. Gastroenteritis: - Acute onset of abdominal cramping, emesis, and diarrhea began late yesterday evening. - 4 episodes of emesis. - 10-15 episodes of non-bloody, non-odorous diarrhea. +abdominal cramping - Denies fever, chills, malaise, or fatigue. - Suspects illness is related to food safety issues at her workplace, [employer]. they don't follow any procedures over there, do not eat there - Has not tried any OTC medications. - Requests a work note. Review of Systems Gastrointestinal: Positive for diarrhea. Constitutional: (-) fever, (-) chills, (-) malaise, (-) fatigue Gastrointestinal: (+) abdominal cramping, (+) vomiting, (+) diarrhea Objective BP 108/74 Pulse 88 Temp 36.6 ?C (97.9 ?F) Resp 18 Wt 79 kg (174 lb 2.6 oz) SpO2 98% BMI 35.54 kg/m? Physical Exam Vitals and nursing note reviewed. Constitutional: General: She is not in acute distress. Appearance: Normal appearance. She is normal weight. She is not ill-appearing, toxic-appearing or diaphoretic. HENT: Head: Normocephalic and atraumatic. Right Ear: Ear canal and external ear normal. Left Ear: Ear canal and external ear normal. Nose: Nose normal. No congestion or rhinorrhea. Mouth/Throat: Mouth: Mucous membranes are moist. Pharynx: No oropharyngeal exudate or posterior oropharyngeal erythema. Eyes: General: Right eye: No discharge. Left eye: No discharge. Extraocular Movements: Extraocular movements intact. Conjunctiva/sclera: Conjunctivae normal. Pupils: Pupils are equal, round, and reactive to light. Cardiovascular: Rate and Rhythm: Normal rate and regular rhythm. Pulses: Normal pulses. Heart sounds: Normal heart sounds. No murmur heard. No friction rub. Pulmonary: Effort: Pulmonary effort is normal. No respiratory distress. Breath sounds: Normal breath sounds. No stridor. No wheezing, rhonchi or rales. Chest: Chest wall: No tenderness. Abdominal: General: Abdomen is flat. There is no distension. Palpations: Abdomen is soft. There is no mass. Tenderness: There is no abdominal tenderness. There is no right CVA tenderness, left CVA tenderness, guarding or rebound. Hernia: No hernia is present. Musculoskeletal: General: No swelling, tenderness, deformity or signs of injury. Normal range of motion. Cervical back: Normal range of motion and neck supple. No rigidity. Right lower leg: No edema. Left lower leg: No edema. Lymphadenopathy: Cervical: No cervical adenopathy. Skin: General: Skin is warm and dry. Capillary Refill: Capillary refill takes less than 2 seconds. Coloration: Skin is not jaundiced or pale. Findings: No bruising, erythema, lesion or rash. Neurological: General: No focal deficit present. Mental Status: She is alert and oriented to person, place, and time. Cranial Nerves: No cranial nerve deficit. Sensory: No sensory deficit. Motor: No weakness. Coordination: Coordination normal. Gait: Gait normal. Psychiatric: Mood and Affect: Mood normal. Behavior: Behavior normal. Thought Content: Thought content normal. Judgment: Judgment normal. { 1. Nausea vomiting and diarrhea (R11.2) 2. Exposure to communicable disease (Z20.9) 3. Occupational exposure to risk factor (Z57.9) - Acute onset of GI symptoms (stomach cramping, 4 episodes of emesis, 10-15 episodes of non-bloody, non-odorous diarrhea) began yesterday evening; no fever, chills, malaise, or fatigue. - Patient suspects symptoms are related to poor food safety protocols at her workplace ([employer]). - Discussed potential for communicable disease exposure and occupational risk factors. - Provided work note as requested. Also obtaining COVID to rule out potential virus given presentation is late May 23. Gastro-esophageal reflux disease without esophagitis (K21.9) and Recording using Ad[employer] software for draft documentation of the visit was discussed with the patient/authorized charter representative; all questions welcomed and answered. Patient/authorized charter representative agreed to proceed MDM Procedures Allergies As of Date: 06/14/2025 Noted Allergy Reaction NORC (more content not included)... Normal [facility] CNOVon 06-12-2025 CNOV Office Visit (FAMPWS ) ARLET NAVARRO ([id number]) 1985 F Date Time Provider Department 06/12/25 1:20 PM TOOTIE MUJICA During your visit today, we recorded the following information about you: Pulse Respiration Blood pressure Weight 83/minute 18/minute 124/88 79.2 kg Tootie Mujica APRN.CARDIAC REHABILITATION PROGRAM DIRECTOR 06/12/2025 1:28 PM Signed 06/12/2025 Patient presents with: Forms: For community action for bills Recording using Adility software for draft documentation of the visit was discussed with the patient/authorized charter representative; all questions welcomed and answered. Patient/authorized charter representative agreed to proceed SUBJECTIVE: This is a 40 year old that is here today for Above Complaints. Asthma: - Cheyanne Navarro was diagnosed during a two-week hospital stay due to persistent hypoxemia. - Managed with Symbicort 2 puffs BID and albuterol inhaler PRN. - Cheyanne has not used albuterol nebulizer since November; typically used during illness. - Denies recent cough, wheezing, or dyspnea. - Claritin provides relief for allergy symptoms; occasionally uses Benadryl. Obstructive Sleep Apnea: - Cheyanne underwent an at-home sleep study two years ago; further testing delayed due to loss of insurance. - Insurance recently reinstated; scheduled appointment on the to resume evaluation. - Reports being teased by children for sleep habits. PAST MEDICAL HISTORY Diagnosis Date Arthritis Asthma in adult, mild intermittent, uncomplicated (HCC) Kidney stones Nocturnal hypoxia ZOFIA (obstructive sleep apnea) Umbilical hernia 2013 ALLERGIES [place] [Hydrocodone-Acetamin ophen] MEDICATIONS Current Outpatient Medications Medication Sig cyclobenzaprine (FLEXERIL) 10 mg tablet Take 1 tablet by mouth two times a day as needed for up to 5 days. omeprazole (PRILOSEC) 40 mg capsule Take 1 capsule by mouth once daily. loratadine (CLARITIN) 10 mg tablet Take 1 tablet by mouth once daily. budesonide-formoterol (SYMBICORT) 160-4.5 mcg/actuation inhaler Inhale 2 Puffs as instructed two times a day. albuterol (PROVENTIL) 2.5 mg /3 mL (0.083 %) nebulizer solution Use 3 mL via nebulizer every 4 hours as needed for wheezing/shortness of breath. albuterol HFA (PROVENTIL HFA, VENTOLIN HFA) 90 mcg/actuation inhaler Inhale 2 Puffs as instructed every 4 hours as needed for wheezing/shortness of breath. naproxen (NAPROSYN) 500 mg tablet TWICE DAILY NEEDED albuterol HFA (PROAIR HFA) 90 mcg/actuation inhaler Inhale 2 Puffs as instructed every 6 hours as needed. melatonin 3 mg tablet Take 3 mg by mouth once daily. No current facility-administered medications for this visit. Medications and allergies reviewed by this provider. SOCIAL HISTORY SOCIAL HISTORY[1] REVIEW OF SYSTEMS All other reviewed and negative other than HPI. OBJECTIVE: BP 124/88 Pulse 83 Resp 18 Wt 79.2 kg (174 lb 9.6 oz) SpO2 96% BMI 35.63 kg/m? . Vital signs reviewed by this provider. GENERAL: NAD, alert and oriented SKIN: unremarkable, no rash or skin lesions to exposed skin EYES: conjunctiva clear LUNGS: Clear to auscultation bilaterally, no wheezes/rhonchi/rales . HEART: Regular rate and rhythm, no murmurs. No ectopy. EXTREMITIES: Normal, No deformities, No skin discoloration, No edema. NEURO: Awake, alert and oriented x3, cranial nerves II-XII grossly intact, normal gait, no involuntary motions Depression Screening Never done Anxiety Screening Never done Hepatitis C Screening Never done HIV Screening Never done DTaP,Tdap,Td Vaccine(1 - Tdap) Never done Hepatitis B Vaccine(1 of 3 - 19+ 3-dose series) Never done HPV Vaccine(1 - 3-dose SCDM series) Never done Influenza Vaccine(1) due on 05/20/2025 Cervical Cancer Screening due on 10/13/2025 1. Mild intermittent asthma without complication (HCC) (J45.20) - History of asthma diagnosed during a two-week hospitalization due to persistent hypoxemia. - Currently managed with Symbicort 2 puffs BID and albuterol inhaler PRN; has not required nebulizer use since November. - No recent coughing, wheezing, or shortness of breath; allergy management with Claritin and occasional Benadryl has improved symptoms. - needs letter faxed for help with electric due to use albuterol nebulizer as needed for shortness of breath and coughing - No refills needed for inhalers at this time. 2. ZOFIA (obstructive sleep apnea) (G47.33) - History of ZOFIA with incomplete diagnostic workup due to previous loss of insurance coverage. - Home sleep study completed; in-lab study recommended two years ago was not completed. - Insurance coverage has resumed; patient has an appointment with Analy on the to resume evaluation and management. Tootie Mujica APRN.CNP Medical Decision Making: Problems: Moderate: 2+ stable chronic illnesses Risk: Low: Low risk from testing/treatment Medic (more content not included)... Normal [facility] CNOVon 06-10-2025 CNOV Office Visit (WOUCA) ARLET NAVARRO ([id number]) 1985 F Date Time Provider Department 06/10/25 2:30 PM TIERNEY MCCLURE During your visit today, we recorded the following information about you: Temperature Pulse Respiration Blood pressure 97.8 degrees 85/minute 19/minute 120/84 Weight 80 kg Tierney Mcclure APRN.CNP 06/10/2025 4:21 PM Signed [facility] Subjective Arlet Navarro is a 40 year old female presenting after a falling onto her right elbow then burning her elbow x 4 days. Associated symptoms include numbness, and tingling in the elbow and up her right arm. She reports 10/10 shooting pain when using her arm and fingers. She reports using ice packs, Ibuprofen and tylenol intermittently which has provided mild relief of symptoms. Pertinent negatives include no fever, chills, fatigue, shortness of breathe, chest pain, light-headedness, and headache. She reports she has had Revise median n/carpal tunnel surg (Right) and Neuroplasty AND/transposition ulnar nerve elbow (Right) in 01/18/2024. Review of Systems Constitutional: Negative for activity change, appetite change, chills, fatigue and fever. Respiratory: Negative for cough and shortness of breath. Cardiovascular: Negative for chest pain and palpitations. Musculoskeletal: Negative for back pain, joint swelling and neck pain. Right arm 10/10 shooting pain in her elbow and upper arm when using her fingers and hand. Skin: Negative for color change, rash and wound. Neurological: Positive for numbness (in elbow). Negative for dizziness, light-headedness and headaches. Objective BP 120/84 Pulse 85 Temp 36.6 ?C (97.8 ?F) Resp 19 Wt 80 kg (176 lb 5.9 oz) SpO2 98% BMI 35.99 kg/m? Physical Exam Vitals and nursing note reviewed. Constitutional: General: She is awake. Cardiovascular: Rate and Rhythm: Normal rate and regular rhythm. Pulses: Radial pulses are 2+ on the right side and 2+ on the left side. Heart sounds: Normal heart sounds and S2 normal. No murmur heard. Pulmonary: Breath sounds: Normal breath sounds. No decreased breath sounds, wheezing or rhonchi. Musculoskeletal: Right shoulder: Normal. No swelling, tenderness or bony tenderness. Normal range of motion. Left shoulder: Normal. No swelling, tenderness or bony tenderness. Normal range of motion. Right upper arm: Tenderness present. No swelling, edema, deformity or bony tenderness. Left upper arm: Normal. No swelling, edema, deformity, lacerations, tenderness or bony tenderness. Right elbow: No swelling. Decreased range of motion. Tenderness present in radial head, medial epicondyle, lateral epicondyle and olecranon process. Left elbow: Normal. No swelling. Normal range of motion. No tenderness. Right forearm: Tenderness and bony tenderness present. No swelling or edema. Left forearm: Normal. No swelling, edema, tenderness or bony tenderness. Right wrist: Normal. No swelling, deformity, tenderness or bony tenderness. Normal range of motion. Normal pulse. Left wrist: Normal. No swelling, deformity, tenderness or bony tenderness. Normal range of motion. Normal pulse. Right hand: No swelling, tenderness or bony tenderness. Normal range of motion. Normal strength. Normal sensation. Normal pulse. Left hand: Normal. No swelling or bony tenderness. Normal range of motion. Normal strength. Normal sensation. Normal pulse. Comments: Patient tearful and unable to do full active and passive ROM +neuro. C/o numbness Skin without rash or lesions. Neurological: Mental Status: She is alert. {ASSESSMENT/PLAN: 1. Pain of right upper extremity - ICD9: 729.5, ICD10: M79.601 - educated to wear the arm sling to keep arm in a neutral position until she is able to follow up with her Ortho Surgeon. - XR HUMERUS 2V AP/LAT RIGHT IMPRESSION: No acute abnormality - XR FOREARM GENERAL 2V AP/LAT RIGHT IMPRESSION: No acute abnormality - XR ELBOW SPECIAL VIEWS AP/LAT/OTHER RIGHT FINDINGS: No acute fractures or subluxations are noted. The radiocapitellar and ulnotrochlear joint spaces are well preserved. No obvious osteophyte formation. There is no fat pad sign to suggest joint effusion. The mineralization of the bones is normal. There is no significant soft tissue swelling. - CYCLOBENZAPRINE 10 MG TABLET - Educated to avoid taking medication during the day and only at night because it can make you drowsy. - Educated to avoid operating heavy machinery or operating a vehicle when taking this medication. Disposition The patient was discharged. OTC Medications were advised: Ibuprofen or Acetaminophen Procedures Discussed medication dosage, usage, goals of therapy, and side effects. Return to [facility], call primary care provider, or go to the emergency department for problems, worsening, increased or new sympto (more content not included)... Normal [facility] XR ELBOW 3V AP/LAT/OTHER RTo n 06-10-2025 XR ELBOW 3V AP/LAT/OTHER RT * * *Final Report* * * DATE OF EXAM: Jun 10 2025 3:34PM WOX 5325 - XR ELBOW 3V AP/LAT/OTHER RT / PROCEDURE REASON: Pain of right upper extremity * * * * Physician Interpretation * * * * EXAM TITLE: XR ELBOW 3V AP/LAT/OTHER RT EXAM DATE/TIME: 06/10/2025 3:34 PM COMPARISON: None. CLINICAL INDICATION/HISTORY: Pain. TECHNIQUE: AP, lateral and radial head views of the right elbow are presented. FINDINGS: No acute fractures or subluxations are noted. The radiocapitellar and ulnotrochlear joint spaces are well preserved. No obvious osteophyte formation. There is no fat pad sign to suggest joint effusion. The mineralization of the bones is normal. There is no significant soft tissue swelling. IMPRESSION: Unremarkable right elbow x-ray. Surveying Crew Stake Runner: [facility] Transcribe Date/Time: Jun 10 2025 3:33P Dictated by : PAIGE LEMON MD This examination was interpreted and the report reviewed and electronically signed by: PAIGE LEMON MD on Jun 10 2025 3:39PM EST [id number] Normal [facility] XR FOREARM 2V AP/LAT RTon XR FOREARM 2V AP/LAT RT * * *Final Repor t* * * DATE OF EXAM: Jun 10 2025 3:34PM WOX 5342 - XR FOREARM 2V AP/LAT RT / PROCEDURE REASON: Pain of right upper extremity * * * * Physician Interpretation * * * * PROCEDURE: Right humerus and right forearm INDICATION: Pain of right upper extremity .RIGHT UPPER ARM PAIN, FELL (accession [id number]), RIGHT FOREARM PAIN, (accession [id number]) TECHNIQUE: XR HUMERUS 2V AP/LAT RT, XR FOREARM 2V AP/LAT RT COMPARISON: Right wrist 06/07/2022 FINDINGS: No acute fracture or dislocation. Joint spaces are maintained. Distal radial bone island again noted. IMPRESSION: No acute abnormality Surveying Crew Stake Runner: [facility] Transcribe Date/Time: Jun 10 2025 3:45P Dictated by : REN CORNELIUS MD This examination was interpreted and the report reviewed and electronically signed by: REN CORNELIUS MD on Jun 10 2025 3:47PM EST [id number] Normal [facility] XR HUMERUS 2V AP/LAT RTon XR HUMERUS 2V AP/LAT RT * * *Final Repor t* * * DATE OF EXAM: Jun 10 2025 3:34PM WOX 5355 - XR HUMERUS 2V AP/LAT RT / PROCEDURE REASON: Pain of right upper extremity * * * * Physician Interpretation * * * * PROCEDURE: Right humerus and right forearm INDICATION: Pain of right upper extremity .RIGHT UPPER ARM PAIN, FELL (accession [id number]), RIGHT FOREARM PAIN, (accession [id number]) TECHNIQUE: XR HUMERUS 2V AP/LAT RT, XR FOREARM 2V AP/LAT RT COMPARISON: Right wrist 06/07/2022 FINDINGS: No acute fracture or dislocation. Joint spaces are maintained. Distal radial bone island again noted. IMPRESSION: No acute abnormality Surveying Crew Stake Runner: J[facility] Transcribe Date/Time: Jun 10 2025 3:45P Dictated by : REN CORNELIUS MD This examination was interpreted and the report reviewed and electronically signed by: REN CORNELIUS MD on Jun 10 2025 3:47PM EST [id number] [facility] (FAMMelissaWS) ARLET NAVARRO ([id number]) 1985 F Date Time Provider Department 05/30/25 TOOTIE MUJICA During your visit today, we recorded the following information about you: Tootie Mujica APRN.ANALISA 05/30/2025 9:03 AM Signed Will need office appointment to discuss since I do not have her CPAP documented in regards to use and what settings she is on. Tootie Mujica APRN.Aurora Hamm MA 05/30/2025 9:22 AM Signed Notified via Tap[employer] that she needs an appointment. Aurora Yost MA Allergies As of Date: 05/30/2025 Noted Allergy Reaction NORCO (HYDROCODONE-ACETAMIN OPHEN) 06/15/2017 4 - Hives 7 - Swelling Date Reviewed: 11/28/2024 Reviewed by: Jose Miguel Patel LPN - Fully Assessed Prescriptions as of 05/30/2025 - omeprazole (PRILOSEC) 40 mg capsule Take 1 capsule by mouth once daily. - loratadine (CLARITIN) 10 mg tablet Take 1 tablet by mouth once daily. - budesonide-formoterol (SYMBICORT) 160-4.5 mcg/actuation inhaler Inhale 2 Puffs as instructed two times a day. - albuterol (PROVENTIL) 2.5 mg /3 mL (0.083 %) nebulizer solution Use 3 mL via nebulizer every 4 hours as needed for wheezing/shortness of breath. - albuterol HFA (PROVENTIL HFA, VENTOLIN HFA) 90 mcg/actuation inhaler Inhale 2 Puffs as instructed every 4 hours as needed for wheezing/shortness of breath. - naproxen (NAPROSYN) 500 mg tablet TWICE DAILY NEEDED - albuterol HFA (PROAIR HFA) 90 mcg/actuation inhaler Inhale 2 Puffs as instructed every 6 hours as needed. - melatonin 3 mg tablet Take 3 mg by mouth once daily. Problem List As Of Date 05/30/2025 Noted Resolved ZOFIA (obstructive sleep apnea) [G47.33] GERD (gastroesophageal reflux disease) [K21.9] Class 2 obesity without serious comorbidity wit* Encounter Status:Closed by AURORA YOST on 05/30/25 Normal [facility] Absolute lymphocyte countOrd ered By: Ry Garcia on 02-12-2025 Lymphocytes Auto (Unsp spec) [#/Vol] 2.43 10*3/uL 0.83-4.51 [facility] Absolute neutrophil countOrd ered By: Ry Garcia on 02-12-2025 Neutrophils (Bld) [#/Vol] 4.8 10*3/uL 2.0-7.7 [facility] Anion gap in Serum or Plasma Ordered By: Ry Garcia on 02-12-2025 Anion gap [Moles/Vol] 12 mmol/L 5-15 [facility] Automated lymphocyte count a s percentage of total leukocytesOrdered By: Ry Garcia on 02-12-2025 Lymphocytes/100 WBC Auto (Unsp spec) 29.4 % [facility] BUN/creatinine ratioOrdered By: Ry Garcia on 02-12-2025 Urea nitrogen/Creatinine [Mass ratio] 15.2 mg/mg - [facility] Basic Metabolic Profile (BMP )on 02-12-2025 BUN/CRE 15.2 RATIO Normal - [facility] Comment on above: Performed By: #### L 500.2500, L100.0100 #### [facility] [address] [place], [address] Calcium [Mass/Vol] 8.7 mg/dL Normal 7.6-11.0 [facility] Comment on above: Performed By: #### L 500.2500, L100.0100 #### [facility] [address] [place], [address] Chloride [Moles/Vol] 106 mmol/L Normal 98-108 [facility] Comment on above: Performed By: #### L 500.2500, L100.0100 #### [facility] [address] [place], [address] CO2 [Moles/Vol] 22.8 mmol/L Normal 21.0-32.0 [facility] Comment on above: Performed By: #### L 500.2500, L100.0100 #### [facility] [address] [place], [address] Creatinine [Mass/Vol] 0.61 mg/dL Low 0.70-1.20 [facility] Comment on above: Performed By: #### L 500.2500, L100.0100 #### [facility] [address] [place], [address] ECRCL 116.71 ml/min Normal 50-250 [facility] Comment on above: Performed By: #### L 500.2500, L100.0100 #### [facility] [address] [place], [address] GAP 12 Normal 5-15 [facility] Comment on above: Performed By: #### L 500.2500, L100.0100 #### [facility] [address] [place], [address] GFR/1.73 sq M.predicted among non-blacks MDRD (S/P/Bld) [Vol rate/Area] 118 mL/min/{1.73_m2} Normal >60 [facility] Comment on above: Result Comment: mL/m in/1.73m2 CKD-EPI Creatinine Equation (2020) Performed By: #### L 500.2500, L100.0100 #### [facility] [address] [place], [address] Glucose [Mass/Vol] 77 mg/dL Normal 70-99 [facility] Comment on above: Performed By: #### L 500.2500, L100.0100 #### [facility] [address] [place], [address] Potassium [Moles/Vol] 3.5 mmol/L Normal 3.3-5.1 [facility] Comment on above: Performed By: #### L 500.2500, L100.0100 #### [facility] [address] [place], [address] Sodium [Moles/Vol] 141 mmol/L Normal 133-145 [facility] Comment on above: Performed By: #### L 500.2500, L100.0100 #### [facility] [address] [place], [address] Urea nitrogen [Mass/Vol] 9 mg/dL Normal 4-19 [facility] Comment on above: Performed By: #### L 500.2500, L100.0100 #### [facility] [address] [place], [address] Basophil percentageOrdered B y: Ry Garcia on 02-12-2025 Basophils/100 WBC (Bld) 0.7 % 0-1 [facility] CBC W/Diff, Automatedon 01-18 Absolute Lymph 2.43 X10 3/uL Normal 0.83-4.51 [facility] [facility] Comment on above: Performed By: #### L 500.2500, L100.0100 #### [facility] [address] [place], [address] Absolute Neut 4.8 X10 3/uL Normal 2.0-7.7 [facility] Comment on above: Performed By: #### L 500.2500, L100.0100 #### [facility] [address] [place], [address] Basophils/100 WBC (Bld) 0.7 % Normal 0-1 [facility] Comment on above: Performed By: #### L 500.2500, L100.0100 #### [facility] [address] [place], [address] Eosinophils/100 WBC (Bld) 2.5 % Normal 0-5 [facility] Comment on above: Performed By: #### L 500.2500, L100.0100 #### [facility] [address] [place], [address] Erythrocyte distribution width (RBC) [Ratio] 12.5 % Normal 11.6-14.6 [facility] Comment on above: Performed By: #### L 500.2500, L100.0100 #### [facility] [address] [place], [address] Hematocrit (Bld) [Volume fraction] 40.8 % Normal 37-47 [facility] Comment on above: Performed By: #### L 500.2500, L100.0100 #### [facility] [address] [place], [address] Hemoglobin (Bld) [Mass/Vol] 13.7 g/dL Normal 12.0-15.0 [facility] Comment on above: Performed By: #### L 500.2500, L100.0100 #### [facility] [address] [place], [address] IG% 0.200 Normal 0.0-0.9 [facility] Comment on above: Result Comment: IG% - Immature Granulocytes (promyelocytes, myelocytes and metamyelocytes) > 1% indicates that a LEFT SHIFT is Present. Performed By: #### L 500.2500, L100.0100 #### [facility] [address] [place], [address] Lymphocytes/100 WBC (Bld) 29.4 % Normal 19-41 [facility] Comment on above: Performed By: #### L 500.2500, L100.0100 #### [facility] [address] [place], [address] MCH (RBC) [Entitic mass] 28.4 pg Normal 27.0-32.0 [facility] Comment on above: Performed By: #### L 500.2500, L100.0100 #### [facility] [address] [place], [address] MCHC (RBC) [Mass/Vol] 33.6 g/dL Normal 32-36 [facility] Comment on above: Performed By: #### L 500.2500, L100.0100 #### [facility] [address] [place], [address] MCV (RBC) [Entitic vol] 84.6 fL Normal 81-99 [facility] Comment on above: Performed By: #### L 500.2500, L100.0100 #### [facility] [address] [place], [address] Monocytes/100 WBC (Bld) 8.7 % Normal 0-10 [facility] Comment on above: Performed By: #### L 500.2500, L100.0100 #### [facility] [address] [place], [address] Neutrophils/100 WBC (Bld) 58.5 % Normal 47-70 [facility] Comment on above: Performed By: #### L 500.2500, L100.0100 #### [facility] [address] [place], [address] Nucleated RBC (Bld) [#/Vol] 0 10*3/uL Normal 0-5 [facility] Comment on above: Performed By: #### L 500.2500, L100.0100 #### [facility] [address] [place], [address] Platelet mean volume (Bld) [Entitic vol] 10.4 fL Normal 6.2-12.0 [facility] Comment on above: Performed By: #### L 500.2500, L100.0100 #### [facility] [address] [place], [address] Platelets (Bld) [#/Vol] 232 10*3/uL Normal 150-450 [facility] Comment on above: Performed By: #### L 500.2500, L100.0100 #### [facility] [address] [place], [address] RBC (Bld) [#/Vol] 4.82 10*6/uL Normal 4.2-5.4 [facility] Comment on above: Performed By: #### L 500.2500, L100.0100 #### [facility] [address] [place], [address] RDW SD 37.9 fl Normal 35.1-43.9 [facility] Comment on above: Performed By: #### L 500.2500, L100.0100 #### [facility] [address] [place], [address] WBC (Bld) [#/Vol] 8.3 10*3/uL Normal 4.4-11.0 [facility] Comment on above: Performed By: #### L 500.2500, L100.0100 #### [facility] [address] [place], [address] Carbon dioxide, total [Moles /volume] in Central venous bloodOrdered By: Ry Garcia on 02-12-2025 CO2 [Moles/Vol] 22.8 mmol/L 21.0-32.0 [facility] Chloride assayOrdered By: Kulwant Garcia on 02-12-2025 Chloride [Moles/Vol] 106 mmol/L 98-108 [facility] Emergency Department Summary on 02-12-2025 Emergency Department Summary [facility] Medical Records Department [address] [facility] [place] [address] Emergency Department Summary 02/12/25 MR#: [id number] Acct: [id number] Name: ARLET NAVARRO Rep #: [id number] : 1985 39 From: Ry Garcia DO PCP: Dr. Ian Mon MD Status:REG ER Location: ED HPI History of Present Illness Chief Complaint: Shortness of Breath Narrative Narrative: Patient is a 39-year-old female past medical history of recurrent UTIs, kidney stones, former tobacco use quit a year ago who presents to the emergency department chief complaint of cough and shortness of breath. Patient states that for the last 3 days she has had cough and shortness of breath. States that everybody at work has been ill recently. States that she has a breathing machine for treatments at home and has been using this she states that she has enough of her inhaler and this at home. States that she has not been on any steroids recently. Patient states that her cough is not productive states that nothing will come up. Patient denies any history of blood clots denies any recent travel history [facility] Medical History History of recurrent UTI (urinary tract infection) Allergic rhinitis Former tobacco use Kidney stones Home Medications ???Medication ???Instructions ???Recorded ???Last Taken ???Type omeprazole 40 mg capsule,delayed 40 mg PO DAILY gerd 12/09/2110/23 History release albuterol sulfate 90 mcg/actuation 1 - 2 puff inhalation Q4H PRN TN N 04/04/23 10/24/24 Rx aerosol inhaler (Ventolin HFA) Wheezing #1 device loratadine 10 mg tablet (Allergy 10 mg PO DAILY allergy 10/24/24 History Relief (loratadine)) naproxen sodium 220 mg capsule 220 mg PO DAILY 02/12/25 Unknown H istory (Aleve) prednisone 50 mg tablet 50 mg PO DAILY 4 days #4 tabs 01/18 04/12 Unknown Rx Allergy/AdvReac Type Severity Reaction Status Date / Time hydrocodone bitartrate (From Allergy Hives Verified 02/12/25 15:29 [place]) Family History Mother COPD (chronic obstructive pulmonary disease) Lung cancer Surgical History History of umbilical hernia repair History of carpal tunnel surgery History of hysterectomy Social History household members: children Smoking Status: Former smoker how long ago did patient quit smoking: Quit 1 year prior to 10/24/24 evaluation, smoked 1 ppd since teen. alcohol intake: never substance use type: does not use ROS ROS ED ROS Narrative Constitutional: Denies fevers, chills, headaches, lightness, dizziness Eyes: Denies change in vision double vision blurry vision Cardiovascular: Denies chest pain or palpitations Respiratory: Complains of dry cough as noted above and shortness of breath Abdomen: Denies nausea vomiting diarrhea : Denies urinary symptoms Neurological: Denies numbness, weakness, tingling Musculoskeletal: Denies back pain Skin: Denies rashes or lesions EXAM Physical Exam Narrative Exam Narrative: General: Patient lying in bed rest comfortably did not appear to be acute distress Head: Atraumatic, normocephalic Eyes: PERRL bilaterally, EOMI bilateral, no conjunctival injection noted Neck: Soft, supple, trachea midline Cardiovascular: Regular rate and rhythm no murmurs gallops rubs noted Respiratory: Patient has mild end expiratory wheezing noted on the right side clear to auscultation on the left side Abdomen: Soft, nondistended, nontender to palpation Extremities: +5/5 strength noted in the bilateral upper and lower extremities, no pedal edema on exam Neurological: Patient following commands knew that she was at [facility] years 2024 Skin: Warm, dry, intact no rashes or lesions noted Const Vital Signs: 02/12/25 15:30 02/12/25 15:32 02/12/25 15:33 Temperature 98.1 F 98.1 F Temperature Source Oral Oral Pulse Rate 85 85 Respiratory Rate 18 18 Respiratory Effort Respiratory Depth Respiratory Pattern Blood Pressure 119/88 H 119/88 H Blood Pressure Mean 98 98 Pulse Ox 98 98 99 Oxygen Delivery Method Room Air Room Air Room Air 02/12/25 15:33 02/12/25 16:32 02/12/25 17:00 Temperature 98.2 F 98.2 F Temperature Source Oral Oral Pulse Rate 80 79 Respiratory Rate 15 14 Respiratory Effort Respiratory Depth Respiratory Pattern Blood Pressure 121/79 H 121/79 H Blood Pressure Mean 93 93 Pulse Ox 99 97 98 Oxygen Delivery Method Room Air Room Air Room Air 02/12/25 17:21 02/12/25 17:46 02/12/25 17:56 Temperature Temperature Source Pulse Rate 83 86 Respiratory Rate 17 16 (more content not included)... Normal [facility] Eosinophil percentageOrdered By: Ry Garcia on 02-12-2025 Eosinophils/100 WBC (Bld) 2.5 % 0-5 [facility] Erythrocyte distribution wid th ratioOrdered By: Ry Garcia on 02-12-2025 Erythrocyte distribution width (RBC) [Ratio] 12.5 % 11.6-14.6 [facility] Erythrocyte distribution wid th standard deviationOrdered By: Ry Garcia on 02-12-2025 Erythrocyte distribution width (RBC) [Ratio] 37.9 fl 35.1-43.9 [facility] Glomerular filtration rate ( GFR) estimation/1.73 sq m using serum, plasma, or whole bOrdered By: Ry Garcia on 02-12-2025 GFR/1.73 sq M.predicted among non-blacks MDRD (S/P/Bld) [Vol rate/Area] 118 mL/min/{1.73_m2} >60 [facility] Comment on above: mL/min/1.73m2 CKD-EP I Creatinine Equation (2020) Hematocrit Auto (Bld) [Volum e fraction]Ordered By: Ry Garcia on 02-12-2025 Hematocrit (Bld) [Volume fraction] 40.8 % 37-47 [facility] Hemoglobin measurementOrdere d By: Ry Garcia on 02-12-2025 Hemoglobin (Bld) [Mass/Vol] 13.7 g/dL 12.0-15.0 [facility] Immature granulocytes/100 WB C Auto (Bld)Ordered By: Ry Garcia on 02-12-2025 Immature granulocytes/100 WBC (Bld) 0.200 % 0.0-0.9 [facility] Comment on above: IG% - Immature Granu locytes (promyelocytes, myelocytes and metamyelocytes) > 1% indicates that a LEFT SHIFT is Present. MCV (mean corpuscular volume ) determinationOrdered By: Ry Garcia on 02-12-2025 MCV (RBC) [Entitic vol] 84.6 fL 81-99 [facility] Mean corpuscular hemoglobin (MCH) determinationOrdered By: Ry Garcia on 02-12-2025 MCH (RBC) [Entitic mass] 28.4 pg 27.0-32.0 [facility] Mean corpuscular hemoglobin concentration (MCHC) determinationOrdered By: Ry Garcia on 02-12-2025 MCHC (RBC) [Mass/Vol] 33.6 g/dL 32-36 [facility] Mean platelet volume determi nationOrdered By: Ry Garcia on 02-12-2025 Platelet mean volume (Bld) [Entitic vol] 10.4 fL 6.2-12.0 [facility] Monocyte percentageOrdered B y: Ry Garcia on 02-12-2025 Monocytes/100 WBC (Bld) 8.7 % 0-10 [facility] Neutrophil percentageOrdered By: Ry Garcia on 02-12-2025 Neutrophils/100 WBC (Bld) 58.5 % 47-70 [facility] Nucleated red blood cell per centageOrdered By: Ry Garcia on 02-12-2025 Nucleated RBC/100 WBC (Bld) [Ratio] 0 % 0-5 [facility] Platelet countOrdered By: Kulwant Garcia on 02-12-2025 Platelets (Bld) [#/Vol] 232 10*3/uL 150-450 [facility] Potassium measurement (mass/ volume)Ordered By: Ry Garcia on 02-12-2025 Potassium (Unsp spec) [Mass/Vol] 3.5 mmol/L 3.3-5.1 [facility] RBC Auto (Bld) [#/Vol]Ordere d By: Ry Garcia on 02-12-2025 RBC (Bld) [#/Vol] 4.82 10*6/uL 4.2-5.4 [facility] Serum creatinine measurement (mass/volume)Ordered By: Ry Garcia on 02-12-2025 Creatinine [Mass/Vol] 0.61 mg/dL Low 0.70-1.20 [facility] Serum glucose measurement (m ass/volume)Ordered By: Ry Garcia on 02-12-2025 Glucose [Mass/Vol] 77 mg/dL 70-99 [facility] Serum or plasma calcium viola urement (mass/volume)Ordered By: Ry Garcia on 02-12-2025 Calcium [Mass/Vol] 8.7 mg/dL 7.6-11.0 [facility] Serum or plasma urea nitroge n measurement (mass/volume)Ordered By: Ry Garcia on 02-12-2025 Urea nitrogen [Mass/Vol] 9 mg/dL 4-19 [facility] Sodium levelOrdered By: Tamela Garcia on 02-12-2025 Sodium [Moles/Vol] 141 mmol/L 133-145 [facility] White blood cell (WBC) count Ordered By: Ry Garcia on 02-12-2025 WBC (Bld) [#/Vol] 8.3 10*3/uL 4.4-11.0 [facility] Abdomen/Pelvis without Conto n 01-11-2025 Abdomen/Pelvis without Cont [facility] [address] [place], [place] [id number] (225) Abdomen/Pelvis without Cont MR#: [id number] Acct: [id number] Name: ARLET NAVARRO Rep #: [id number] : 1985 F 39 From: Candelario Black MD PCP: Dr. Ian Mon MD Status: REG ER Study: Abdomen/Pelvis without Cont Date of Exam: 12/19 02/10 Exam# [id number] Ordering Dr: Rufus Miramontes MD EXAM: CT Abdomen and Pelvis Without Intravenous Contrast CLINICAL INDICATION: KIDNEY STONE TECHNIQUE: Axial computed tomography images of the abdomen and pelvis without intravenous contrast. This CT exam was performed using one or more of the following dose reduction techniques: automated exposure control, adjustment of the mA and/or kV according to patient size, and/or use of iterative reconstruction technique. COMPARISON: No relevant prior studies available. FINDINGS: LUNG BASES: Unremarkable. No mass. No consolidation. MEDIASTINUM: Small esophageal hiatal hernia. ABDOMEN: LIVER: Hepatomegaly with fatty infiltration. GALLBLADDER AND BILE DUCTS: Unremarkable. No calcified stones. No ductal dilation. PANCREAS: Unremarkable. No ductal dilation. SPLEEN: Unremarkable. No splenomegaly. ADRENALS: Unremarkable. No mass. KIDNEYS AND URETERS: 3 mm left renal pelvic calculus without obstruction. STOMACH AND BOWEL: Fecal retention in the colon consistent with constipation. No obstruction. No mucosal thickening. PELVIS: APPENDIX: No findings to suggest acute appendicitis. BLADDER: Unremarkable. No stones. REPRODUCTIVE: Unremarkable as visualized. ABDOMEN and PELVIS: INTRAPERITONEAL SPACE: Unremarkable. No free air. No significant fluid collection. BONES/JOINTS: No acute fracture. No dislocation. SOFT TISSUES: Umbilical hernia containing fat. VASCULATURE: Unremarkable. No abdominal aortic aneurysm. LYMPH NODES: Unremarkable. No enlarged lymph nodes. CT/Abdomen/Pelvis without Cont IMPRESSION: 1. Small esophageal hiatal hernia. 2. Hepatomegaly with fatty infiltration. 3. Umbilical hernia containing fat. 4. Fecal retention in the colon consistent with constipation. 5. 3 mm left renal pelvic calculus without obstruction. Reading Location: [facility] CC: Dr. Rufus Miramontes MD; Dr. 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 Automated lymphocyte count a s percentage of total leukocytesOrdered By: Rufus Miramontes on 01-11-2025 Lymphocytes/100 WBC Auto (Unsp spec) 35.6 % - [facility] BUN/creatinine ratioOrdered By: Rufus Miramontes on 01-11-2025 Urea nitrogen/Creatinine [Mass ratio] 19.0 mg/mg 10- [facility] Bacteria LM.HPF (Urine sed) [#/Area]Ordered By: Rufus Miramontes on 01-11-2025 Urine Bacteria RARE /hpf None Seen [facility] Basic Metabolic Profile (BMP )on 01-11-2025 BUN/CRE 19.0 RATIO Normal 10- [facility] Comment on above: Performed By: #### L 500.2500, L100.0100 #### [facility] [address] [place], [address] Calcium [Mass/Vol] 8.9 mg/dL Normal 7.6-11.0 [facility] Comment on above: Performed By: #### L 500.2500, L100.0100 #### [facility] [address] [place], [address] Chloride [Moles/Vol] 106 mmol/L Normal 98-108 [facility] Comment on above: Performed By: #### L 500.2500, L100.0100 #### [facility] [address] [place], [address] CO2 [Moles/Vol] 24.3 mmol/L Normal 21.0-32.0 [facility] Comment on above: Performed By: #### L 500.2500, L100.0100 #### [facility] [address] [place], [address] Creatinine [Mass/Vol] 0.66 mg/dL Low 0.70-1.20 [facility] Comment on above: Performed By: #### L 500.2500, L100.0100 #### [facility] [address] [place], [address] ECRCL 108.93 ml/min Normal 50-250 [facility] Comment on above: Performed By: #### L 500.2500, L100.0100 #### [facility] [address] [place], [address] GAP 10 Normal 5-15 [facility] Comment on above: Performed By: #### L 500.2500, L100.0100 #### [facility] [address] [place], [address] GFR/1.73 sq M.predicted among non-blacks MDRD (S/P/Bld) [Vol rate/Area] 115 mL/min/{1.73_m2} Normal >60 [facility] Comment on above: Result Comment: mL/m in/1.73m2 CKD-EPI Creatinine Equation (2020) Performed By: #### L 500.2500, L100.0100 #### [facility] [address] [place], [address] Glucose [Mass/Vol] 85 mg/dL Normal 70-99 [facility] Comment on above: Performed By: #### L 500.2500, L100.0100 #### [facility] [address] [place], [address] Potassium [Moles/Vol] 3.4 mmol/L Normal 3.3-5.1 [facility] Comment on above: Performed By: #### L 500.2500, L100.0100 #### [facility] [address] [place], [address] Sodium [Moles/Vol] 140 mmol/L Normal 133-145 [facility] Comment on above: Performed By: #### L 500.2500, L100.0100 #### [facility] [address] [place], [address] Urea nitrogen [Mass/Vol] 13 mg/dL Normal 4-19 [facility] Comment on above: Performed By: #### L 500.2500, L100.0100 #### [facility] [address] [place], [address] Basophil percentageOrdered B y: Rufus Miramontes on 01-11-2025 Basophils/100 WBC (Bld) 0.5 % 0-1 [facility] Bilirubin Test strip Ql (U)O rdered By: Rufus Miramontes on 01-11-2025 Bilirubin Ql (U) Negative Negative [facility] CBC W/Diff, Automatedon 12-19 PLT EST ADEQUATE Normal ADEQ [facility] Comment on above: Performed By: #### L 500.2500, L100.0100 #### [facility] [address] [place], [address] Carbon dioxide, total [Moles /volume] in Central venous bloodOrdered By: Rufus Miramontes on 01-11-2025 CO2 [Moles/Vol] 24.3 mmol/L 21.0-32.0 [facility] Chloride assayOrdered By: Ihsan Miramontes on 01-11-2025 Chloride [Moles/Vol] 106 mmol/L 98-108 [facility] Emergency Department Summary on 01-11-2025 Emergency Department Summary [facility] Medical Records Department [address] [place] [address] Emergency Department Summary 01/11/25 MR#: [id number] Acct: [id number] Name: ARLET NAVARRO Rep #: [id number] : 1985 39 From: Rufus Miramontes MD PCP: Dr. Ian Mon MD Status:REG ER Location: ED HPI History of Present Illness Chief Complaint: Flank Pain Narrative Narrative: 39-year-old female past surgical history of hysterectomy 10 years ago, previously of kidney stones and ureterolithiasis, sees Dr. Nair. She presents with 4 days of what started as left flank pain and now has bilateral flank pain. She thinks she may have a bladder infection on top of the kidney stone. She denies any fevers or chills, no nausea or vomiting but complains of bilateral flank pain. She has had intermittent hematuria over the last 4 days as well. She states it has been almost a year since she had her last kidney stone and she has been drinking more water. This feels similar. No exacerbating or alleviating factors. [facility] Medical History History of recurrent UTI (urinary tract infection) Allergic rhinitis Former tobacco use Kidney stones Home Medications ???Medication ???Instructions ???Recorded ???Last Taken ???Type omeprazole 40 mg capsule,delayed 40 mg PO DAILY gerd 12/09/2110/23 History release albuterol sulfate 90 mcg/actuation 1 - 2 puff inhalation Q4H PRN TN N 04/04/23 10/24/24 Rx aerosol inhaler (Ventolin HFA) Wheezing #1 device loratadine 10 mg tablet (Allergy 10 mg PO DAILY allergy 10/24/24 History Relief (loratadine)) melatonin 5 mg capsule 5 mg PO QHS sleep 10/24/24 5 History prednisone 20 mg tablet 40 mg (2 x 20 mg) PO DAILY #10 tab s 10/26/24 Unknown Rx oxycodone 5 mg tablet 5 mg PO Q6H PRN pain 3 days #12 Unknown Rx tabs Allergy/AdvReac Type Severity Reaction Status Date / Time hydrocodone bitartrate (From Allergy Hives Verified 01/11/25 17:10 [place]) Family History Mother COPD (chronic obstructive pulmonary disease) Lung cancer Surgical History History of umbilical hernia repair History of carpal tunnel surgery History of hysterectomy Social History household members: children Smoking Status: Former smoker how long ago did patient quit smoking: Quit 1 year prior to 10/24/24 evaluation, smoked 1 ppd since teen. alcohol intake: never substance use type: does not use ROS ROS ED ROS Narrative Review of systems positive for left flank pain greater than right. Positive intermittent hematuria x 4 days. More left flank pain and urinary frequency over the last 4 days as well. No fevers or chills, no nausea or vomiting. No problems with bowel movements. EXAM Physical Exam Narrative Exam Narrative: Afebrile. Vital signs noted. Nontoxic-appearing. Cardiovascular examination reveals a regular rate and rhythm. Lungs are clear to auscultation bilaterally. Abdomen is soft and nontender without guarding or rebound. Positive bowel sounds. Questionable CVA tenderness, left. Neurological examination nonfocal and nonlateralizing. Const Vital Signs: 01/11/25 17:08 01/11/25 18:10 Temperature 97.5 F L 97.8 F Temperature Source Oral Oral Pulse Rate 84 72 Respiratory Rate 16 16 Blood Pressure 111/80 107/74 Blood Pressure Mean 90 85 Pulse Ox 98 96 Oxygen Delivery Method Room Air Room Air MDM MDM MDM Narrative Medical decision making narrative: The differential diagnosis includes but not limited to ureterolithiasis versus pyelonephritis versus ureterolithiasis/uret eral colic with cystitis. Comprehensive workup was pursued. She was administered morphine and Toradol for analgesia. I do not feel that a CT is indicated as she is status post hysterectomy remotely. CBC and BMP will be obtained as well as urinalysis and CT imaging without contrast. I reviewed her prior records. I reviewed her laboratory work today and she has a white count of 11.6 which I think is nonspecific and she has chronic leukocytosis when compared to prior laboratories. BMP is remarkable for normal BUN of 13 and creatinine low at 0.66. Urinalysis shows 150 occult blood with 0 WBCs and RBCs 10-25. I do not feel antibiotics are indicated. On review of the CT of the abdomen and pelvis without contrast, she has a 3 mm left renal stone in the renal pelvis, but no evidence of obstruction. At this point in time, repeat examination shows her resting comfortably on the cot. I feel she can be discharged to follow-up with her urologist. She was written for 12 oxycodone tablets which in review of her pr (more content not included)... Normal [facility] Eosinophil percentageOrdered By: Rufus Miramontes on 01-11-2025 Eosinophils/100 WBC (Bld) 3.4 % 0-5 [facility] Epithelial cells.squamous LM Ql (Urine sed)Ordered By: Rufus Miramontes on 01-11-2025 Epithelial cells.squamous LM.HPF (Urine sed) [#/Area] 0 /[HPF] 5-10 [facility] Erythrocyte distribution wid th (RBC) [Ratio]Ordered By: Rufus Miramontes on 01-11-2025 Erythrocyte distribution width (RBC) [Entitic vol] 39.3 fL 35.1-43.9 [facility] Erythrocyte distribution wid th ratioOrdered By: Rufus Miramontes on 01-11-2025 Erythrocyte distribution width (RBC) [Ratio] 12.7 % 11.6-14.6 [facility] Erythrocyte distribution wid th standard deviationOrdered By: Rufus Miramontes on 01-11-2025 Erythrocyte distribution width (RBC) [Ratio] 39.3 fl 35.1-43.9 [facility] Estimation of creatinine mich aranceOrdered By: Rufus Miramontes on 01-11-2025 Estimated Creatinine Clearance Calc 108.93 ml/min 50-250 [facility] GFR/1.73 sq M.predicted tina g non-blacks MDRD (S/P/Bld) [Vol rate/Area]Ordered By: Rufus Miramontes on 01-11-2025 Estimated GFR (MDRD) Non-Af Amer 115 >60 [facility] Comment on above: mL/min/1.73m2 CKD-EP I Creatinine Equation (2020) Glomerular filtration rate ( GFR) estimation/1.73 sq m using serum, plasma, or whole bOrdered By: Rufus Miramontes on 01-11-2025 GFR/1.73 sq M.predicted among non-blacks MDRD (S/P/Bld) [Vol rate/Area] 115 mL/min/{1.73_m2} >60 [facility] Comment on above: mL/min/1.73m2 CKD-EP I Creatinine Equation (2020) Glucose Ql (U)Ordered By: Ihsan Miramontes on 01-11-2025 Urine Glucose (UA) Normal mg/dl Normal [facility] Hematocrit Auto (Bld) [Volum e fraction]Ordered By: Rufus Miramontes on 01-11-2025 Hematocrit (Bld) [Volume fraction] 41.6 % 37-47 [facility] Hemoglobin measurementOrdere d By: Rufus Miramontes on 01-11-2025 Hemoglobin (Bld) [Mass/Vol] 13.9 g/dL 12.0-15.0 [facility] Immature granulocytes/100 WB C Auto (Bld)Ordered By: Rufus Miramontes on 01-11-2025 Immature granulocytes/100 WBC (Bld) 0.500 % 0.0-0.9 [facility] Comment on above: IG% - Immature Granu locytes (promyelocytes, myelocytes and metamyelocytes) > 1% indicates that a LEFT SHIFT is Present. Ketones Test strip Ql (U)Ord ered By: Rufus Miramontes on 01-11-2025 Ketones Ql (U) Negative Negative [facility] Lymphocytes Auto (Unsp spec) [#/Vol]Ordered By: Rufus Miramontes on 01-11-2025 Lymphocytes (Bld) [#/Vol] 4.14 10*3/uL 0.83-4.51 [facility] Lymphocytes/100 WBC Auto (Un sp spec)Ordered By: Rufus Miramontes on 01-11-2025 Lymphocytes/100 WBC (Bld) 35.6 % 19-41 [facility] MCV (mean corpuscular volume ) determinationOrdered By: Ruufs Miramontes on 01-11-2025 MCV (RBC) [Entitic vol] 85.4 fL 81-99 [facility] Mean corpuscular hemoglobin (MCH) determinationOrdered By: Rufus Miramontes on 01-11-2025 MCH (RBC) [Entitic mass] 28.5 pg 27.0-32.0 [facility] Mean corpuscular hemoglobin concentration (MCHC) determinationOrdered By: Rufus Miramontes on 01-11-2025 MCHC (RBC) [Mass/Vol] 33.4 g/dL 32-36 [facility] Mean platelet volume determi nationOrdered By: Rufus Miramontes on 01-11-2025 Platelet mean volume (Bld) [Entitic vol] 10.9 fL 6.2-12.0 [facility] Microscopic analysis of urin e for red blood cells (RBC)Ordered By: Rufus Miramontes on 01-11-2025 Microscopic analysis of urine for red blood cells (RBC) 10-25 SEEN /hpf 0-5 [facility] Urine RBC 10-25 SEEN /hpf 0-5 [facility] Monocyte percentageOrdered B y: Rufus Miramontes on 01-11-2025 Monocytes/100 WBC (Bld) 6.5 % 0-10 [facility] Mucus LM Ql (Urine sed)Order ed By: Rufus Miramontes on 01-11-2025 Mucus Ql (Urine sed) 1+ /hpf [facility] Neutrophil percentageOrdered By: Rufus Miramontes on 01-11-2025 Neutrophils/100 WBC (Bld) 53.5 % 47-70 [facility] Nitrite Test strip Ql (U)Ord ered By: Rufus Miramontes on 01-11-2025 Nitrite Ql (U) Negative Negative [facility] Nucleated red blood cell per centageOrdered By: Rufus Miramontes on 01-11-2025 Nucleated RBC/100 WBC (Bld) [Ratio] 0 % 0-5 [facility] Platelet countOrdered By: Ihsan Miramontes on 01-11-2025 Platelets (Bld) [#/Vol] 269 10*3/uL 150-450 [facility] Platelet estimateOrdered By: Rufus Miramontes on 01-11-2025 Platelets LM Ql (Bld) ADEQUATE ADEQ [facility] Platelets LM Ql (Bld)Ordered By: Rufus Miramontes on 01-11-[address] [facility] Potassium (Unsp spec) [Mass/ Vol]Ordered By: Rufus Miramontes on 01-11-2025 Potassium [Moles/Vol] 3.4 mmol/L 3.3-5.1 [facility] Potassium measurement (mass/ volume)Ordered By: Rufus Miramontes on 01-11-2025 Potassium (Unsp spec) [Mass/Vol] 3.4 mmol/L 3.3-5.1 [facility] Protein Test strip Ql (U)Ord ered By: Rufus Miramontes on 01-11-2025 Protein Ql (U) 30 mg/dl High Negative [facility] RBC Auto (Bld) [#/Vol]Ordere d By: Rufus Lowryvijaycelestina on 01-11-2025 RBC (Bld) [#/Vol] 4.87 10*6/uL 4.2-5.4 [facility] Serum creatinine measurement (mass/volume)Ordered By: Rufus Miramontes on 01-11-2025 Creatinine [Mass/Vol] 0.66 mg/dL Low 0.70-1.20 [facility] Serum glucose measurement (m ass/volume)Ordered By: Rufus Miramontes on 01-11-2025 Glucose [Mass/Vol] 85 mg/dL 70-99 [facility] Serum or plasma calcium viola urement (mass/volume)Ordered By: Rufus Miramontes on 01-11-2025 Calcium [Mass/Vol] 8.9 mg/dL 7.6-11.0 [facility] Serum or plasma urea nitroge n measurement (mass/volume)Ordered By: Rufus Miramontes on 01-11-2025 Urea nitrogen [Mass/Vol] 13 mg/dL 4-19 [facility] Sodium levelOrdered By: Rufus Miramontes on 01-11-2025 Sodium [Moles/Vol] 140 mmol/L 133-145 [facility] Squamous epithelial cells de tection in urine sediment by light microscopyOrdered By: Rufus Miramontes on 01-11-2025 Epithelial cells.squamous LM Ql (Urine sed) 0-5 SEEN /hpf 5-10 [facility] Urinalysis, Completeon 01-11 BACTERIA RARE Normal None Seen [facility] Comment on above: Order Comment: CLEAN CATCH Performed By: #### L [id number] #### [facility] Laboratory [address] [place], [place], [phone] EPI,SQUAMOUS 0-5 SEEN Normal 5-10 [facility] Comment on above: Order Comment: CLEAN CATCH Performed By: #### L [id number] #### [facility] [address] [place], [place], [phone] Mucus Ql (Urine sed) 1+ /hpf Normal [facility] Comment on above: Order Comment: CLEAN CATCH Performed By: #### L [id number] #### [facility] [address], [address] RBC 10-25 SEEN Normal 0-5 [facility] Comment on above: Order Comment: CLEAN CATCH Performed By: #### L [id number] #### [facility] [address] [facility] [address] WBC 0 SEEN Normal 0-5 [facility] Comment on above: Order Comment: CLEAN CATCH Performed By: #### L [id number] #### [facility] [address] [place], [place], [phone] Urine blood detectionOrdered By: Rufus Miramontes on 01-11-2025 Urine Occult Blood 150 /ul High Negative [facility] Urine clarityOrdered By: Saba Miramontes on 01-11-2025 Clarity (U) Clear Clear [facility] Urine color determinationOrd ered By: Rufus Miramontes on 01-11-2025 Color (U) Yellow Yellow [facility] Urine glucose detectionOrder ed By: Rufus Miramontes on 01-11-2025 Glucose Ql (U) Normal mg/dl Normal [facility] Urine leukocyte esterase det ection by dipstickOrdered By: Rufus Miramontes on 01-11-2025 Leukocyte esterase Test strip Ql (U) Negative Negative [facility] Urine pHOrdered By: Rufus escalante on 01-11-2025 pH (U) 6.0 [pH] 5.0 - 8.0 [facility] Urine sediment bacteria coun t by microscopy (number/high power field)Ordered By: Rufus Miramontes on 01-11-2025 Bacteria LM.HPF (Urine sed) [#/Area] RARE /hpf None Seen [facility] Urine specific gravity measu rementOrdered By: Rufus Miramontes on 01-11-2025 Specific gravity (U) [Rel density] 1.025 1.002-1.030 [facility] Urine urobilinogen measureme ntOrdered By: Rufus Miramontes on 01-11-2025 Urobilinogen Ql (U) 1 mg/dl High Normal [facility] Urobilinogen Ql (U)Ordered B y: Rufus Miramontes on 01-11-2025 Urobilinogen (U) [Mass/Vol] 1 mg/dL High Normal [facility] White blood cell (WBC) count Ordered By: Rufus Lewiscelestina on 01-11-2025 WBC (Bld) [#/Vol] 11.6 10*3/uL High 4.4-11.0 [facility] White blood cell countOrdere d By: Rufus Miramontes on 01-11-2025 Urine WBC 0 SEEN /hpf 0-5 [facility] White blood cell count 0 SEEN /hpf 0-5 [facility] CNOVon 11-28-2024 CNOV Office Visit (JORDON ) ARLET NAVARRO ([id number]) 1985 F Date Time Provider Department 11/28/24 1:20 PM TOOTIE MUJICA During your visit today, we recorded the following information about you: Temperature Pulse Respiration Blood pressure 98.3 degrees 101/minute 24/minute 122/84 Weight Height 79.7 kg 1.491 m Tootie Mujica APRN.CARDIAC REHABILITATION PROGRAM DIRECTOR 11/28/2024 2:00 PM Signed 11/28/2024 Patient presents with: Short Of Breath SUBJECTIVE: This is a 39 year old that is here today for Above Complaints. Completed prednisone yesterday after being [facility] on for URI symptoms. Negative for COVID-19, RSV and Influenza at that time. Did test Positive for RSV end of September. Did feel some improvement when taking the prednisone however still with some SOB with exertion. Admits to wheezing. Using albuterol inhaler several times a day with mild relief. No night use of albuterol. Dry cough. Denies fevers, chills, other URI symptoms, dyspnea or chest pain PAST MEDICAL HISTORY Diagnosis Date Arthritis Kidney stones Nocturnal hypoxia ZOFIA (obstructive sleep apnea) Umbilical hernia 2013 ALLERGIES [place] [Hydrocodone-Acetamin ophen] MEDICATIONS Current Outpatient Medications Medication Sig omeprazole (PRILOSEC) 40 mg capsule Take 1 capsule by mouth once daily. albuterol HFA (PROVENTIL HFA, VENTOLIN HFA) 90 mcg/actuation inhaler Inhale 2 Puffs as instructed every 4 hours as needed for wheezing/shortness of breath. loratadine (CLARITIN) 10 mg tablet Take 1 tablet by mouth once daily. naproxen (NAPROSYN) 500 mg tablet TWICE DAILY NEEDED albuterol HFA (PROAIR HFA) 90 mcg/actuation inhaler Inhale 2 Puffs as instructed every 6 hours as needed. melatonin 3 mg tablet Take 3 mg by mouth once daily. No current facility-administered medications for this visit. Medications and allergies reviewed by this provider. SOCIAL HISTORY Social History Tobacco Use Smoking status: Former Current packs/day: 0.50 Average packs/day: 0.5 packs/day for 17.0 years (8.5 ttl pk-yrs) Types: Cigarettes Smokeless tobacco: Never Vaping Use Vaping status: Never Used Substance Use Topics Alcohol use: No Drug use: No REVIEW OF SYSTEMS All other reviewed and negative other than HPI. OBJECTIVE: BP 122/84 Pulse 101 Temp 36.8 ?C (98.3 ?F) Resp 24 Ht 149.1 cm (4' 10.7) Wt 79.7 kg (175 lb 9.6 oz) SpO2 94% BMI 35.83 kg/m? . Vital signs reviewed by this provider. APPEARANCE Well appearing, alert, in no acute distress, well-hydrated, well nourished. EYES conjunctiva and sclera normal. HEART normal S1 and S2, no murmurs, no gallops, no JVD appreciated and Rate tachycardia LUNG Diminished lungs posteriorly throughout. Scattered faint expiratory wheezes. Able to speak in full sentences without difficulty SKIN Skin color, texture, turgor normal, no suspicious rashes or lesions to exposed skin Depression Screening Never done Anxiety Screening Never done Hepatitis C Screening Never done HIV Screening Never done DTaP,Tdap,Td Vaccine(1 - Tdap) Never done Hepatitis B Vaccine(1 of 3 - 19+ 3-dose series) Never done Influenza Vaccine(1) due on 05/20/2024 Covid-19 Vaccine( season) due on 05/20/2024 Cervical Cancer Screening due on 10/13/2025 ASSESSMENT/PLAN: 1. SOB (shortness of breath) - ICD9: 786.05, ICD10: R06.02 (primary diagnosis) - no red flag symptoms or exam findings - red lag symptoms discussed, verbalizes understanding - BUDESONIDE-FORMOTEROL HFA 160 MCG-4.5 MCG/ACTUATION AEROSOL INHALER - XR CHEST 2V FRONTAL/LAT - PREDNISONE 20 MG TABLET - ALBUTEROL SULFATE 2.5 MG/3 ML (0.083 %) SOLUTION FOR NEBULIZATION - follow-up for physical, sooner if nit improving to ER with red flag symptoms 2. Wheezing - ICD9: 786.07, ICD10: R06.2 - plan as in #1 - BUDESONIDE-FORMOTEROL HFA 160 MCG-4.5 MCG/ACTUATION AEROSOL INHALER - XR CHEST 2V FRONTAL/LAT - PREDNISONE 20 MG TABLET - ALBUTEROL SULFATE 2.5 MG/3 ML (0.083 %) SOLUTION FOR NEBULIZATION Tootie Mujica, REAL ESTATE LOAN PROCESSOR.CARDIAC REHABILITATION PROGRAM DIRECTOR Prescription instructions reviewed with patient as applicable. Patient advised if symptoms do not improve or if symptoms worsen sooner, to contact their primary care physician. Potential red flag symptoms discussed with the patient. Reviewed appropriate action plan to take if red flag symptoms occur. Patient agreeable to treatment plan. Medical Decision Making: Problems: Moderate: Acute illness with systemic symptoms Risk: Moderate: Drug management Medical Decision Making Level: 4 - Moderate Allergies As of Date: 11/28/2024 Noted Allergy Reaction NORCO (HYDROCODONE-ACETAMIN OPHEN) 06/15/2017 4 - Hives 7 - Swelling Date Reviewed: 11/28/2024 Reviewed by: Jose Miguel Patel LPN - Fully Assessed Reason for Visit: Short Of Breath [2748] Primary Visit Diagnosis:SOB (shortness of breath) [R06 (more content not included)... Normal [facility] ([id number]) 1985 F Date Time Provider Department 11/28/24 TOOTIE MUJICA During your visit today, we recorded the following information about you: Tootie Mujica APRN.CNP 11/28/2024 1:56 PM Signed Please call [facility] and let them know to cancel the albuterol syrup. I sent over new prescription for nebulizer solution Tootie Mujica APRN.CNP Allergies As of Date: 11/28/2024 Noted Allergy Reaction NORCO (HYDROCODONE-ACETAMIN OPHEN) 06/15/2017 4 - Hives 7 - Swelling Date Reviewed: 11/28/2024 Reviewed by: Jose Miguel Patel LPN - Fully Assessed Prescriptions as of 12/03/2024 - budesonide-formoterol (SYMBICORT) 160-4.5 mcg/actuation inhaler Inhale 2 Puffs as instructed two times a day. - predniSONE (DELTASONE) 20 mg tablet Take 2 tablets by mouth once daily for 5 days. - albuterol (PROVENTIL) 2.5 mg /3 mL (0.083 %) nebulizer solution Use 3 mL via nebulizer every 4 hours as needed for wheezing/shortness of breath. - omeprazole (PRILOSEC) 40 mg capsule Take 1 capsule by mouth once daily. - albuterol HFA (PROVENTIL HFA, VENTOLIN HFA) 90 mcg/actuation inhaler Inhale 2 Puffs as instructed every 4 hours as needed for wheezing/shortness of breath. - loratadine (CLARITIN) 10 mg tablet Take 1 tablet by mouth once daily. - naproxen (NAPROSYN) 500 mg tablet TWICE DAILY NEEDED - albuterol HFA (PROAIR HFA) 90 mcg/actuation inhaler Inhale 2 Puffs as instructed every 6 hours as needed. - melatonin 3 mg tablet Take 3 mg by mouth once daily. Problem List As Of Date 11/28/2024 Noted Resolved ZOFIA (obstructive sleep apnea) [G47.33] GERD (gastroesophageal reflux disease) [K21.9] Class 2 obesity without serious comorbidity wit* Encounter Status:Closed by AURORA YOST on 12/03/24 Normal [facility] XR CHEST 2V FRONTAL/LATon XR CHEST 2V FRONTAL/LAT * * *Final Repor t* * * DATE OF EXAM: Nov 28 2024 2:01PM WOX [id number] - XR CHEST 2V FRONTAL/LAT / PROCEDURE REASON: multiple diagnoses * * * * Physician Interpretation * * * * EXAMINATION: CHEST RADIOGRAPH (2 VIEW FRONTAL and LATERAL) CLINICAL HISTORY: SOB (shortness of breath) Wheezing MQ: XC2_6 EXAM DATE/TIME: 11/28/2024 2:01 PM COMPARISON: Chest x-ray dated 11/19/2024 RESULT: Lines, tubes, and devices: None. Lungs and pleura: No consolidation. No lung mass. No pleural effusion. No pneumothorax. Cardiomediastinal silhouette: Normal cardiomediastinal silhouette. Bones and soft tissues: Unremarkable. IMPRESSION: No acute radiographic abnormality. Surveying Crew Stake Runner: [facility] Transcribe Date/Time: Nov 28 2024 2:04P Dictated by : ANDREZ COPPOLA MD This examination was interpreted and the report reviewed and electronically signed by: ANDREZ COPPOLA MD on Nov 28 2024 2:05PM EST [id number] Normal [facility] XR Chest PA and Lateralon IMPRESSION: No acute radiographic abnormality. Surveying Crew Stake Runner: [facility] Transcribe Date/Time: Nov 28 2024 2:04P Dictated by : ANDREZ COPPOLA MD This examination was interpreted and the report reviewed and electronically signed by: ANDREZ COPPOLA MD on Nov 28 2024 2:05PM EST DIVISION OF RADIOLOGY * * *Final Report* * * DATE OF EXAM: Nov 28 2024 2:01PM WOX [id number] - XR CHEST 2V FRONTAL/LAT / PROCEDURE REASON: multiple diagnoses * * * * Physician Interpretation * * * * EXAMINATION: CHEST RADIOGRAPH (2 VIEW FRONTAL & LATERAL) CLINICAL HISTORY: SOB (shortness of breath) Wheezing MQ: XC2_6 EXAM DATE/TIME: 11/28/2024 2:01 PM COMPARISON: Chest x-ray dated 11/19/2024 RESULT: Lines, tubes, and devices: None. Lungs and pleura: No consolidation. No lung mass. No pleural effusion. No pneumothorax. Cardiomediastinal silhouette: Normal cardiomediastinal silhouette. Bones and soft tissues: Unremarkable. DIVISION OF RADIOLOGY Provider, Smiley Dsouza - 11/28/2024 * * *Final Report* * * DATE OF EXAM: Nov 28 2024 2:01PM WOX [id number] - XR CHEST 2V FRONTAL/LAT / PROCEDURE REASON: multiple diagnoses * * * * Physician Interpretation * * * * EXAMINATION: CHEST RADIOGRAPH (2 VIEW FRONTAL & LATERAL) CLINICAL HISTORY: SOB (shortness of breath) Wheezing MQ: XC2_6 EXAM DATE/TIME: 11/28/2024 2:01 PM COMPARISON: Chest x-ray dated 11/19/2024 RESULT: Lines, tubes, and devices: None. Lungs and pleura: No consolidation. No lung mass. No pleural effusion. No pneumothorax. Cardiomediastinal silhouette: Normal cardiomediastinal silhouette. Bones and soft tissues: Unremarkable. IMPRESSION IMPRESSION: No acute radiographic abnormality. Surveying Crew Stake Runner: [facility] Transcribe Date/Time: Nov 28 2024 2:04P Dictated by : ANDREZ COPPOLA MD This examination was interpreted and the report reviewed and electronically signed by: ANDREZ COPPOLA MD on Nov 28 2024 2:05PM [facility] Radiology Study observation (narrative) Lambert dobbins [facility] XR Chest PA and LateralOrder ed By: [facility] Provider on 11-28-2024 [facility] ARLET NAVARRO ([id number]) 1985 F Date Time Provider Department 11/21/24 TOOTIE MUJICA During your visit today, we recorded the following information about you: Tootie Mujica APRN.CNP 11/21/2024 8:38 AM Signed Patient my chart scheduled for check up. If she needs physical will need to be rescheduled as it is only slotted for 20 minutes. CAN Harrison Amanda, RN 11/21/2024 11:16 AM Signed Pts appointment switched to Physical on 11/28/24. Pt asking if provider could send in a short term of Omeprazole to [facility] in [place]. The patient has been identified by name and date of : Yes Caregiver verified no other encounters exist for this prescription request: Yes Caregiver confirmed with patient/requestor that no other refills are due, in the near future, with this provider at this time: Yes The last office visit in the department: 10/26/2023 Does the patient have a future office visit with this provider/department: Yes 11/28/2024 Requested Prescriptions Pending Prescriptions Disp Refills omeprazole (PRILOSEC) 40 mg capsule 30 capsule 0 Sig: Take 1 capsule by mouth once daily. Wilda Rosado RN November 21, 2024 11:15 AM Tootie Mujica APRN.CNP 11/21/2024 12:15 PM Signed Prescription sent for patient. Tootie Mujica APRN.CNP Allergies As of Date: 11/21/2024 Noted Allergy Reaction NORCO (HYDROCODONE-ACETAMIN OPHEN) 06/15/2017 4 - Hives 7 - Swelling Date Reviewed: 11/20/2024 Reviewed by: Dorothy Alvarez MA - Fully Assessed Reason for Visit: Appointment [186] Visit Diagnoses:Epigastric pain [R10.13] Gastroesophageal reflux disease, unspecified whether esophagitis present [K21.9] Order(s):omeprazole (PRILOSEC) 40 mg capsuleTake 1 capsule by mouth once daily.Disp: 30 capsuleRfl: 0 Prescriptions as of 11/21/2024 - omeprazole (PRILOSEC) 40 mg capsule Take 1 capsule by mouth once daily. - albuterol HFA (PROVENTIL HFA, VENTOLIN HFA) 90 mcg/actuation inhaler Inhale 2 Puffs as instructed every 4 hours as needed for wheezing/shortness of breath. - predniSONE (DELTASONE) 10 mg tablet Take 5 tablets by mouth once daily for 1 day, THEN 4 tablets once daily for 1 day, THEN 3 tablets once daily for 1 day, THEN 2 tablets once daily for 1 day, THEN 1 tablet once daily for 1 day. - loratadine (CLARITIN) 10 mg tablet Take 1 tablet by mouth once daily. - naproxen (NAPROSYN) 500 mg tablet TWICE DAILY NEEDED - albuterol HFA (PROAIR HFA) 90 mcg/actuation inhaler Inhale 2 Puffs as instructed every 6 hours as needed. - melatonin 3 mg tablet Take 3 mg by mouth once daily. Problem List As Of Date 11/21/2024 Noted Resolved ZOFIA (obstructive sleep apnea) [G47.33] GERD (gastroesophageal reflux disease) [K21.9] Class 2 obesity without serious comorbidity wit* Prescriptions ordered this encounter Disp Refills Start End OMEPRAZOLE 40 MG CAPSULE,DELAYED REL* 30 c* 0 11/21/2024 02/19/2025 Route: ORAL Sig: Take 1 capsule by mouth once daily. Medications Discontinued During This Encounter Prescriptions - omeprazole (PRILOSEC) 40 mg capsule (Discontinued) Take 1 capsule by mouth once daily. Encounter Status:Closed by JOSE MIGUEL PATEL on 11/21/24 [facility] CNOVon 11-20-2024 CNOV Office Visit (UCWSTR ) NAVARROARLET ([id number]) 1985 F Date Time Provider Department 11/20/24 5:15 PM LATHA FATIMA [facility] During your visit today, we recorded the following information about you: Temperature Pulse Respiration Blood pressure 98.2 degrees 100/minute 16/minute 134/86 Weight 79.6 kg Latha Fatima APRN.CNP 11/20/2024 5:27 PM Signed This note was created using NoteWriter. Subjective Arlet Navarro is a 39 year old female. 39 year old female with PMH GERD and ZOFIA presents for illness Acute onset yesterday +N/V/D +cough +chest congestion Denies dyspnea Denies CP Denies hemoptysis Denies skin rash or lesions. She was seen here yesterday Negative CXR Negative COVID and flu She presents today requesting an albuterol inhaler refill I told him yesterday that I had one, but I don't She is also requesting a note as she was not able to work today Quit smoking one year ago The history is provided by the patient. No american sign language interpreter was used. Flu Like Symptoms This is a new problem. The current episode started yesterday. The problem occurs constantly. The problem has been gradually worsening. Associated symptoms include congestion, coughing, nausea and vomiting. Pertinent negatives include no abdominal pain, anorexia, arthralgias, change in bowel habit, chest pain, chills, diaphoresis, fatigue, fever, headaches, joint swelling, myalgias, neck pain, numbness, rash, sore throat, swollen glands, urinary symptoms, vertigo, visual change or weakness. Nothing aggravates the symptoms. She has tried nothing for the symptoms. The treatment provided no relief. PAST MEDICAL HISTORY Diagnosis Date Arthritis Kidney stones Nocturnal hypoxia ZOFIA (obstructive sleep apnea) Umbilical hernia 2013 PAST SURGICAL HISTORY Procedure Laterality Date HYSTERECTOMY HX 2012 has left ovary LAP UMBILICAL HERNIA REPAIR 2014 NEUROPLASTY AND/TRANSPOSITION ULNAR NERVE ELBOW Right 01/18/2024 REPAIR UMBILICAL HERNIA 07/12/2024 REVISE MEDIAN N/CARPAL TUNNEL SURG Right 01/18/2024 ALLERGIES [place] [Hydrocodone-Acetamin ophen] MEDICATIONS predniSONE (DELTASONE) 10 mg tablet Take 5 tablets by mouth once daily for 1 day, THEN 4 tablets once daily for 1 day, THEN 3 tablets once daily for 1 day, THEN 2 tablets once daily for 1 day, THEN 1 tablet once daily for 1 day. omeprazole (PRILOSEC) 40 mg capsule Take 1 capsule by mouth once daily. loratadine (CLARITIN) 10 mg tablet Take 1 tablet by mouth once daily. naproxen (NAPROSYN) 500 mg tablet TWICE DAILY NEEDED albuterol HFA (PROAIR HFA) 90 mcg/actuation inhaler Inhale 2 Puffs as instructed every 6 hours as needed. melatonin 3 mg tablet Take 3 mg by mouth once daily. albuterol HFA (PROVENTIL HFA, VENTOLIN HFA) 90 mcg/actuation inhaler Inhale 2 Puffs as instructed every 4 hours as needed for wheezing/shortness of breath. Inhalational Spacing Device 1 Device one time only for 1 dose. FAMILY HISTORY Problem Relation Age of Onset Breast Cancer Mother Hypertension Mother Heart Mother other (ms) Mother Fibromyalgia Mother No Known Problems Father Diabetes Sister No Known Problems Brother other (MS) Maternal Grandmother Breast Cancer Maternal Grandmother Heart Maternal Grandmother other (hTN) Maternal Grandmother No Known Problems Maternal Grandfather No Known Problems Paternal Grandmother No Known Problems Paternal Grandfather Anesthesia Problems No Family History Social History Tobacco Use Smoking status: Former Current packs/day: 0.50 Average packs/day: 0.5 packs/day for 17.0 years (8.5 ttl pk-yrs) Types: Cigarettes Smokeless tobacco: Never Vaping Use Vaping status: Never Used Substance Use Topics Alcohol use: No Drug use: No Review of Systems Constitutional: Negative for chills, diaphoresis, fatigue and fever. HENT: Positive for congestion. Negative for sore throat. Eyes: Negative for pain, discharge and itching. Respiratory: Positive for cough. Cardiovascular: Negative for chest pain. Gastrointestinal: Positive for diarrhea, nausea and vomiting. Negative for abdominal pain, anorexia and change in bowel habit. Musculoskeletal: Negative for arthralgias, joint swelling, myalgias and neck pain. Skin: Negative for rash. Allergic/Immunologic: Negative for environmental allergies, food allergies and immunocompromised state. Neurological: Negative for dizziness, vertigo, facial asymmetry, weakness, numbness and headaches. Psychiatric/Behaviora l: Negative for agitation and behavioral problems. Objective BP 134/86 Pulse 100 Temp 36.8 ?C (98.2 ?F) Resp 16 Wt 79.6 kg (175 lb 7.8 oz) SpO2 95% BMI 37.97 kg/m? Physical Exam Vitals and nursing note reviewed. Constitutional: General: She is not in acute distress. Appearance: Normal appearance. She is normal weight. (more content not included)... Normal [facility] CNOVon 11-19-2024 CNOV Office Visit (UCWSTR ) ARLET NAVARRO ([id number]) 1985 F Date Time Provider Department 11/19/24 12:15 PM CECILIA LOVE [facility] During your visit today, we recorded the following information about you: Temperature Pulse Respiration Blood pressure 97.8 degrees 103/minute 18/minute 118/76 Weight 82.8 kg Cecilia Love MD 11/19/2024 1:11 PM Signed Patient presents with: Head Congestion: Congestion, SOB and wheezy x 1 day HPI: Feeling sick for admitted 4 days for syncope and RSV 1 month ago. She was feeling back to normal for just a few days until getting sick today. Positive symptoms: Cough, Shortness of breath, Wheezing, Chest tightness, Body Aches, Malaise, Headache, Nausea, Vomiting, Diarrhea, itchy eyes, nasal congestion Negative symptoms: Sore throat, Fever, OTC: ziacam. Albuterol is not helping her breathing. PAST MEDICAL HISTORY Diagnosis Date Arthritis Kidney stones Nocturnal hypoxia ZOFIA (obstructive sleep apnea) Umbilical hernia 2013 MEDICATIONS: Current Outpatient Medications Medication Sig omeprazole (PRILOSEC) 40 mg capsule Take 1 capsule by mouth once daily. loratadine (CLARITIN) 10 mg tablet Take 1 tablet by mouth once daily. naproxen (NAPROSYN) 500 mg tablet TWICE DAILY NEEDED albuterol HFA (PROAIR HFA) 90 mcg/actuation inhaler Inhale 2 Puffs as instructed every 6 hours as needed. (Patient not taking: Reported on 10/10/2024) melatonin 3 mg tablet Take 3 mg by mouth once daily. No current facility-administered medications for this visit. ALLERGIES: ALLERGIES Allergen Reactions [place] [Hydrocodone-* Hives, Swelling VITALS: BP 118/76 Pulse 103 Temp 36.6 ?C (97.8 ?F) (Tympanic) Resp 18 Wt 82.8 kg (182 lb 8.7 oz) SpO2 95% BMI 39.50 kg/m? PHYSICAL EXAM: GEN: mildly ill appearing HEENT: PERRL, EOMI, conjunctiva lightly injected Ears: canals clear. TMs without erythema, bulge, or effusion Sinuses: pressure over sinuses Throat: moist mucous membranes, no erythema, no exudate Neck: supple, no thyromegaly, no lymphadenopathy HEART: regular rate, regular rhythm, no murmurs LUNGS: bilateral expiratory wheezes, loudest in right lower lung; no increased WOB ASSESSMENT/PLAN: 1. Influenza-like symptoms - ICD9: 780.99, ICD10: R68.89 (primary diagnosis) 2. Wheezing - ICD9: 786.07, ICD10: R06.2 - XR CHEST 2V FRONTAL/LAT - negative - INFLUENZA AANDB MOLECULAR (POC) - negative - suspect viral URI - Discussed supportive care treatment with rest, cold medicine, and analgesia. - COVID AND INFLUENZA A/B AND RSV PCR, ROUTINE - PREDNISONE 10 MG TABLET taper Cecilia Love MD Allergies As of Date: 11/19/2024 Noted Allergy Reaction [place] (HYDROCODONE-ACETAMIN OPHEN) 06/15/2017 4 - Hives 7 - Swelling Date Reviewed: 11/19/2024 Reviewed by: Mallory Smith LPN - Fully Assessed Reason for Visit: Head Congestion [234] Cmt: Congestion, SOB and wheezy x 1 day Primary Visit Diagnosis:Influenza-l saira symptoms [R68.89] Other Visit Diagnosis:Wheezing [R06.2] Order(s):XR CHEST 2V FRONTAL/LAT [[id number]] Order #: [id number] FUTURE INFLUENZA AANDB MOLECULAR (POC) [[id number]] Order #: [id number]. #:[id number] COVID AND INFLUENZA A/B AND RSV PCR, ROUTINE [SQCVFLRS] Order #: [id number]. #:[id number] predniSONE (DELTASONE) 10 mg tabletTake 5 tablets by mouth once daily for 1 day, THEN 4 tablets once daily for 1 day, THEN 3 tablets once daily for 1 day, THEN 2 tablets once daily for 1 day, THEN 1 tablet once daily for 1 day.Disp: 15 tabletRfl: 0 Prescriptions as of 11/19/2024 - predniSONE (DELTASONE) 10 mg tablet Take 5 tablets by mouth once daily for 1 day, THEN 4 tablets once daily for 1 day, THEN 3 tablets once daily for 1 day, THEN 2 tablets once daily for 1 day, THEN 1 tablet once daily for 1 day. - omeprazole (PRILOSEC) 40 mg capsule Take 1 capsule by mouth once daily. - loratadine (CLARITIN) 10 mg tablet Take 1 tablet by mouth once daily. - naproxen (NAPROSYN) 500 mg tablet TWICE DAILY NEEDED - albuterol HFA (PROAIR HFA) 90 mcg/actuation inhaler Inhale 2 Puffs as instructed every 6 hours as needed. - melatonin 3 mg tablet Take 3 mg by mouth once daily. Problem List As Of Date 11/19/2024 Noted Resolved ZOFIA (obstructive sleep apnea) [G47.33] GERD (gastroesophageal reflux disease) [K21.9] Class 2 obesity without serious comorbidity wit* Prescriptions ordered this encounter Disp Refills Start End PREDNISONE 10 MG TABLET 15 t* 0 11/19/2024 11/24/2024 Route: ORAL Sig: Take 5 tablets by mouth once daily for 1 day, THEN 4 tablets once daily for 1 day, THEN 3 tablets once daily for 1 day, THEN 2 tablets once daily for 1 day, THEN 1 tablet once daily for 1 day. Level of Service: OFFICE/OUTPATIENT ESTABLISHED MOD MDM 30 MIN [66163] Letter Text Encounter Status:Clos (more content not included)... Normal [facility] INFLUENZA A&B MOLECULAR (POC )on 11-19-2024 Flu A (POCT) Negative Negative [facility] Flu B (POCT) Negative Negative [facility] Procedural Control Valid [facility] Location:[address], [place], [place], [id number] [place] [address] POINT OF CARE [facility] XR CHEST 2V FRONTAL/LATon XR CHEST 2V FRONTAL/LAT * * *Final Repor t* * * DATE OF EXAM: Nov 19 2024 12:44PM WOX [id number] - XR CHEST 2V FRONTAL/LAT / PROCEDURE REASON: multiple diagnoses * * * * Physician Interpretation * * * * EXAMINATION: CHEST RADIOGRAPH (2 VIEW FRONTAL and LATERAL) CLINICAL HISTORY: Influenza-like symptoms Wheezing MQ: XC2_6 EXAM DATE/TIME: 11/19/2024 12:44 PM COMPARISON: Chest x-ray dated 10/10/2024 RESULT: Lines, tubes, and devices: None. Lungs and pleura: No consolidation. No lung mass. No pleural effusion. No pneumothorax. Cardiomediastinal silhouette: Normal cardiomediastinal silhouette. Bones and soft tissues: Unremarkable. IMPRESSION: No acute radiographic abnormality. Surveying Crew Stake Runner: JIM Transcribe Date/Time: Nov 19 2024 12:44P Dictated by : ANDREZ COPPOLA MD This examination was interpreted and the report reviewed and electronically signed by: ANDREZ COPPOLA MD on Nov 19 2024 12:45PM EST [id number] Normal [facility] XR Chest PA and Lateralon IMPRESSION: No acute radiographic abnormality. Surveying Crew Stake Runner: [facility] Transcribe Date/Time: Nov 19 2024 12:44P Dictated by : ANDREZ COPPOLA MD This examination was interpreted and the report reviewed and electronically signed by: ANDREZ COPPOLA MD on Nov 19 2024 12:45PM EST DIVISION OF RADIOLOGY * * *Final Report* * * DATE OF EXAM: Nov 19 2024 12:44PM WOX [id number] - XR CHEST 2V FRONTAL/LAT / PROCEDURE REASON: multiple diagnoses * * * * Physician Interpretation * * * * EXAMINATION: CHEST RADIOGRAPH (2 VIEW FRONTAL & LATERAL) CLINICAL HISTORY: Influenza-like symptoms Wheezing MQ: XC2_6 EXAM DATE/TIME: 11/19/2024 12:44 PM COMPARISON: Chest x-ray dated 10/10/2024 RESULT: Lines, tubes, and devices: None. Lungs and pleura: No consolidation. No lung mass. No pleural effusion. No pneumothorax. Cardiomediastinal silhouette: Normal cardiomediastinal silhouette. Bones and soft tissues: Unremarkable. DIVISION OF RADIOLOGY Provider, [facility] - 11/19/2024 * * *Final Report* * * DATE OF EXAM: Nov 19 2024 12:44PM WOX 5291 - XR CHEST 2V FRONTAL/LAT / PROCEDURE REASON: multiple diagnoses * * * * Physician Interpretation * * * * EXAMINATION: CHEST RADIOGRAPH (2 VIEW FRONTAL & LATERAL) CLINICAL HISTORY: Influenza-like symptoms Wheezing MQ: XC2_6 EXAM DATE/TIME: 11/19/2024 12:44 PM COMPARISON: Chest x-ray dated 10/10/2024 RESULT: Lines, tubes, and devices: None. Lungs and pleura: No consolidation. No lung mass. No pleural effusion. No pneumothorax. Cardiomediastinal silhouette: Normal cardiomediastinal silhouette. Bones and soft tissues: Unremarkable. IMPRESSION IMPRESSION: No acute radiographic abnormality. Surveying Crew Stake Runner: [facility] Transcribe Date/Time: Nov 19 2024 12:44P Dictated by : ANDREZ COPPOLA MD This examination was interpreted and the report reviewed and electronically signed by: ANDREZ COPPOLA MD on Nov 19 2024 12:45PM EST [facility] Radiology Study observation (narrative) [facility] XR Chest PA and LateralOrder ed By: [facility] Provider on 11-19-2024 [facility] Basic Metabolic Profile (BMP )on 11-02-2024 BUN Normal 7-18 [facility] Comment on above: Result Comment: Canc elled via OM: Order cancelled - Patient discharged Performed By: #### L 100.0100, L500.2500 #### [facility] [address] [place], [address] BUN/CRE Normal 10-20 [facility] Comment on above: Result Comment: Canc elled via OM: Order cancelled - Patient discharged Performed By: #### L 100.0100, L500.2500 #### [facility] [address] [place], [address] CA,Total Normal 8.5-10.1 [facility] Comment on above: Result Comment: Canc elled via OM: Order cancelled - Patient discharged Performed By: #### L 100.0100, L500.2500 #### [facility] [address] [place], [address] CL Normal 98-107 [facility] Comment on above: Result Comment: Canc elled via OM: Order cancelled - Patient discharged Performed By: #### L 100.0100, L500.2500 #### [facility] [address] [place], [address] CO2 Normal 21.0-32.0 [facility] Comment on above: Result Comment: Canc elled via OM: Order cancelled - Patient discharged Performed By: #### L 100.0100, L500.2500 #### [facility] [address] [place], [address] CREAT,SERUM Normal 0.55-1.02 [facility] Comment on above: Result Comment: Canc elled via OM: Order cancelled - Patient discharged Performed By: #### L 100.0100, L500.2500 #### [facility] [address] [place], [address] EST GFR Normal >60 [facility] Comment on above: Result Comment: Canc elled via OM: Order cancelled - Patient discharged Performed By: #### L 100.0100, L500.2500 #### [facility] [address] [place], [address] EST GFR - AA Normal >60 [facility] Comment on above: Result Comment: Canc elled via OM: Order cancelled - Patient discharged Performed By: #### L 100.0100, L500.2500 #### [facility] [address] [place], [address] GAP Normal 5-15 [facility] Comment on above: Result Comment: Canc elled via OM: Order cancelled - Patient discharged Performed By: #### L 100.0100, L500.2500 #### [facility] [address] [place], [address] GLU Normal 74-106 [facility] Comment on above: Result Comment: Canc elled via OM: Order cancelled - Patient discharged Performed By: #### L 100.0100, L500.2500 #### [facility] [address] [place], [address] Potassium Normal 3.5-5.1 [facility] Comment on above: Result Comment: Canc elled via OM: Order cancelled - Patient discharged Performed By: #### L 100.0100, L500.2500 #### [facility] [address] [place], [address] Basic Metabolic Profile (BMP) Normal 136-145 [facility] Comment on above: Result Comment: Canc elled via OM: Order cancelled - Patient discharged Performed By: #### L 100.0100, L500.2500 #### [facility] [address] [place], [address] CBC W/Diff, Automatedon - Absolute Neut Normal 2.0-7.7 [facility] Comment on above: Result Comment: Canc elled via OM: Order cancelled - Patient discharged Performed By: #### L 500.2500, L100.0100 #### [facility] [address] [place], [address] HCT Normal 37-47 [facility] Comment on above: Result Comment: Canc elled via OM: Order cancelled - Patient discharged Performed By: #### L 500.2500, L100.0100 #### [facility] [address] [place], [address] HGB Normal 12.0-15.0 [facility] Comment on above: Result Comment: Canc elled via OM: Order cancelled - Patient discharged Performed By: #### L 500.2500, L100.0100 #### [facility] [address] [place], [address] MCH Normal 27.0-32.0 [facility] Comment on above: Result Comment: Canc elled via OM: Order cancelled - Patient discharged Performed By: #### L 500.2500, L100.0100 #### [facility] [address] [place], [address] MCHC Normal 32-36 [facility] Comment on above: Result Comment: Canc elled via OM: Order cancelled - Patient discharged Performed By: #### L 500.2500, L100.0100 #### [facility] [address] [place], [address] MCV Normal 81-99 [facility] Comment on above: Result Comment: Canc elled via OM: Order cancelled - Patient discharged Performed By: #### L 500.2500, L100.0100 #### [facility] [address] [place], [address] NEUT% Normal 47-70 [facility] Comment on above: Result Comment: Canc elled via OM: Order cancelled - Patient discharged Performed By: #### L 500.2500, L100.0100 #### [facility] [address] [place], [address] PLT Normal 150-450 [facility] Comment on above: Result Comment: Canc elled via OM: Order cancelled - Patient discharged Performed By: #### L 500.2500, L100.0100 #### [facility] [address] [place], [address] RBC Normal 4.2-5.4 [facility] Comment on above: Result Comment: Canc elled via OM: Order cancelled - Patient discharged Performed By: #### L 500.2500, L100.0100 #### [facility] [address] [place], [address] RDW CV Normal 11.6-14.6 [facility] Comment on above: Result Comment: Canc elled via OM: Order cancelled - Patient discharged Performed By: #### L 500.2500, L100.0100 #### [facility] [address] [place], [address] RDW SD Normal 35.1-43.9 [facility] Comment on above: Result Comment: Canc elled via OM: Order cancelled - Patient discharged Performed By: #### L 500.2500, L100.0100 #### [facility] [address] [place], [address] WBC Normal 4.4-11.0 [facility] Comment on above: Result Comment: Canc elled via OM: Order cancelled - Patient discharged Performed By: #### L 500.2500, L100.0100 #### [facility] [address] [place], [address] Basic Metabolic Profile (BMP )on 11-01-2024 BUN Normal 7-18 [facility] Comment on above: Result Comment: Canc elled via OM: Order cancelled - Patient discharged Performed By: #### L 500.2500, L100.0100 #### [facility] [address] [place], [address] BUN/CRE Normal 10-20 [facility] Comment on above: Result Comment: Canc elled via OM: Order cancelled - Patient discharged Performed By: #### L 500.2500, L100.0100 #### [facility] [address] [place], [address] CA,Total Normal 8.5-10.1 [facility] Comment on above: Result Comment: Canc elled via OM: Order cancelled - Patient discharged Performed By: #### L 500.2500, L100.0100 #### [facility] [address] [place], [address] CL Normal 98-107 [facility] Comment on above: Result Comment: Canc elled via OM: Order cancelled - Patient discharged Performed By: #### L 500.2500, L100.0100 #### [facility] [address] [place], [address] CO2 Normal 21.0-32.0 [facility] Comment on above: Result Comment: Canc elled via OM: Order cancelled - Patient discharged Performed By: #### L 500.2500, L100.0100 #### [facility] [address] [place], [address] CREAT,SERUM Normal 0.55-1.02 [facility] Comment on above: Result Comment: Canc elled via OM: Order cancelled - Patient discharged Performed By: #### L 500.2500, L100.0100 #### [facility] [address] [place], [address] EST GFR Normal >60 [facility] Comment on above: Result Comment: Canc elled via OM: Order cancelled - Patient discharged Performed By: #### L 500.2500, L100.0100 #### [facility] [address] [place], [address] EST GFR - AA Normal >60 [facility] Comment on above: Result Comment: Canc elled via OM: Order cancelled - Patient discharged Performed By: #### L 500.2500, L100.0100 #### [facility] [address] [place], [address] GAP Normal 5-15 [facility] Comment on above: Result Comment: Canc elled via OM: Order cancelled - Patient discharged Performed By: #### L 500.2500, L100.0100 #### [facility] [address] [place], [address] GLU Normal 74-106 [facility] Comment on above: Result Comment: Canc elled via OM: Order cancelled - Patient discharged Performed By: #### L 500.2500, L100.0100 #### [facility] [address] [place], [address] Potassium Normal 3.5-5.1 [facility] Comment on above: Result Comment: Canc elled via OM: Order cancelled - Patient discharged Performed By: #### L 500.2500, L100.0100 #### [facility] [address] [place], [address] Basic Metabolic Profile (BMP) Normal 136-145 [facility] Comment on above: Result Comment: Canc elled via OM: Order cancelled - Patient discharged Performed By: #### L 500.2500, L100.0100 #### [facility] [address] [place], [address] CBC W/Diff, Automatedon 02- Absolute Neut Normal 2.0-7.7 [facility] Comment on above: Result Comment: Canc elled via OM: Order cancelled - Patient discharged Performed By: #### L 500.2500, L100.0100 #### [facility] [address] [place], [address] HCT Normal 37-47 [facility] Comment on above: Result Comment: Canc elled via OM: Order cancelled - Patient discharged Performed By: #### L 500.2500, L100.0100 #### [facility] [facility] [address] [place], [address] HGB Normal 12.0-15.0 [facility] Comment on above: Result Comment: Canc elled via OM: Order cancelled - Patient discharged Performed By: #### L 500.2500, L100.0100 #### [facility] [address] [place], [address] MCH Normal 27.0-32.0 [facility] Comment on above: Result Comment: Canc elled via OM: Order cancelled - Patient discharged Performed By: #### L 500.2500, L100.0100 #### [facility] [address] [place], [address] MCHC Normal 32-36 [facility] Comment on above: Result Comment: Canc elled via OM: Order cancelled - Patient discharged Performed By: #### L 500.2500, L100.0100 #### [facility] [address] [place], [address] MCV Normal 81-99 [facility] Comment on above: Result Comment: Canc elled via OM: Order cancelled - Patient discharged Performed By: #### L 500.2500, L100.0100 #### [facility] [address] [place], [address] NEUT% Normal 47-70 [facility] Comment on above: Result Comment: Canc elled via OM: Order cancelled - Patient discharged Performed By: #### L 500.2500, L100.0100 #### [facility] [address] [place], [address] PLT Normal 150-450 [facility] Comment on above: Result Comment: Canc elled via OM: Order cancelled - Patient discharged Performed By: #### L 500.2500, L100.0100 #### [facility] [address] [place], [address] RBC Normal 4.2-5.4 [facility] Comment on above: Result Comment: Canc elled via OM: Order cancelled - Patient discharged Performed By: #### L 500.2500, L100.0100 #### [facility] [address] [place], [address] RDW CV Normal 11.6-14.6 [facility] Comment on above: Result Comment: Canc elled via OM: Order cancelled - Patient discharged Performed By: #### L 500.2500, L100.0100 #### [facility] [address] [place], [address] RDW SD Normal 35.1-43.9 [facility] Comment on above: Result Comment: Canc elled via OM: Order cancelled - Patient discharged Performed By: #### L 500.2500, L100.0100 #### [facility] [address] [place], [address] WBC Normal 4.4-11.0 [facility] Comment on above: Result Comment: Canc elled via OM: Order cancelled - Patient discharged Performed By: #### L 500.2500, L100.0100 #### [facility] [address] [place], [address] Basic Metabolic Profile (BMP )on 10-31-2024 BUN Normal 7-18 [facility] Comment on above: Result Comment: Canc elled via OM: Order cancelled - Patient discharged Performed By: #### L 500.2500, L100.0100 #### [facility] [address] [place], [address] BUN/CRE Normal 10-20 [facility] Comment on above: Result Comment: Canc elled via OM: Order cancelled - Patient discharged Performed By: #### L 500.2500, L100.0100 #### [facility] [address] [place], [address] CA,Total Normal 8.5-10.1 [facility] Comment on above: Result Comment: Canc elled via OM: Order cancelled - Patient discharged Performed By: #### L 500.2500, L100.0100 #### [facility] [address] [place], [address] CL Normal 98-107 [facility] Comment on above: Result Comment: Canc elled via OM: Order cancelled - Patient discharged Performed By: #### L 500.2500, L100.0100 #### [facility] [address] [place], [address] CO2 Normal 21.0-32.0 [facility] Comment on above: Result Comment: Canc elled via OM: Order cancelled - Patient discharged Performed By: #### L 500.2500, L100.0100 #### [facility] [address] [place], [address] CREAT,SERUM Normal 0.55-1.02 [facility] Comment on above: Result Comment: Canc elled via OM: Order cancelled - Patient discharged Performed By: #### L 500.2500, L100.0100 #### [facility] [address] [place], [address] EST GFR Normal >60 [facility] Comment on above: Result Comment: Canc elled via OM: Order cancelled - Patient discharged Performed By: #### L 500.2500, L100.0100 #### [facility] [address] [place], [address] EST GFR - AA Normal >60 [facility] Comment on above: Result Comment: Canc elled via OM: Order cancelled - Patient discharged Performed By: #### L 500.2500, L100.0100 #### [facility] [address] [place], [address] GAP Normal 5-15 [facility] Comment on above: Result Comment: Canc elled via OM: Order cancelled - Patient discharged Performed By: #### L 500.2500, L100.0100 #### [facility] [address] [place], [address] GLU Normal 74-106 [facility] Comment on above: Result Comment: Canc elled via OM: Order cancelled - Patient discharged Performed By: #### L 500.2500, L100.0100 #### [facility] [address] [place], [address] Potassium Normal 3.5-5.1 [facility] Comment on above: Result Comment: Canc elled via OM: Order cancelled - Patient discharged Performed By: #### L 500.2500, L100.0100 #### [facility] [address] [place], [address] Basic Metabolic Profile (BMP) Normal 136-145 [facility] Comment on above: Result Comment: Canc elled via OM: Order cancelled - Patient discharged Performed By: #### L 500.2500, L100.0100 #### [facility] [address] [place], [address] CBC W/Diff, Automatedon 02- Absolute Neut Normal 2.0-7.7 [facility] Comment on above: Result Comment: Canc elled via OM: Order cancelled - Patient discharged Performed By: #### L 500.2500, L100.0100 #### [facility] [address] [place], [address] HCT Normal 37-47 [facility] Comment on above: Result Comment: Canc elled via OM: Order cancelled - Patient discharged Performed By: #### L 500.2500, L100.0100 #### [facility] [address] [place], [address] HGB Normal 12.0-15.0 [facility] Comment on above: Result Comment: Canc elled via OM: Order cancelled - Patient discharged Performed By: #### L 500.2500, L100.0100 #### [facility] [address] [place], [address] MCH Normal 27.0-32.0 [facility] Comment on above: Result Comment: Canc elled via OM: Order cancelled - Patient discharged Performed By: #### L 500.2500, L100.0100 #### [facility] [address] [place], [address] MCHC Normal 32-36 [facility] Comment on above: Result Comment: Canc elled via OM: Order cancelled - Patient discharged Performed By: #### L 500.2500, L100.0100 #### [facility] [address] [place], [address] MCV Normal 81-99 [facility] Comment on above: Result Comment: Canc elled via OM: Order cancelled - Patient discharged Performed By: #### L 500.2500, L100.0100 #### [facility] [address] [place], [address] NEUT% Normal 47-70 [facility] Comment on above: Result Comment: Canc elled via OM: Order cancelled - Patient discharged Performed By: #### L 500.2500, L100.0100 #### [facility] [address] [place], [address] PLT Normal 150-450 [facility] Comment on above: Result Comment: Canc elled via OM: Order cancelled - Patient discharged Performed By: #### L 500.2500, L100.0100 #### [facility] [address] [place], [address] RBC Normal 4.2-5.4 [facility] Comment on above: Result Comment: Canc elled via OM: Order cancelled - Patient discharged Performed By: #### L 500.2500, L100.0100 #### [facility] [address] [place], [address] RDW CV Normal 11.6-14.6 [facility] Comment on above: Result Comment: Canc elled via OM: Order cancelled - Patient discharged Performed By: #### L 500.2500, L100.0100 #### [facility] [address] [place], [address] RDW SD Normal 35.1-43.9 [facility] Comment on above: Result Comment: Canc elled via OM: Order cancelled - Patient discharged Performed By: #### L 500.2500, L100.0100 #### [facility] [address] [place], [address] WBC Normal 4.4-11.0 [facility] Comment on above: Result Comment: Canc elled via OM: Order cancelled - Patient discharged Performed By: #### L 500.2500, L100.0100 #### [facility] [address] [place], [address] Basic Metabolic Profile (BMP )on 10-30-2024 BUN Normal 7-18 [facility] Comment on above: Result Comment: Canc elled via OM: Order cancelled - Patient discharged Performed By: #### L 500.2500, L100.0100 #### [facility] [address] [place], [address] BUN/CRE Normal 10-20 [facility] Comment on above: Result Comment: Canc elled via OM: Order cancelled - Patient discharged Performed By: #### L 500.2500, L100.0100 #### [facility] [address] [place], [address] CA,Total Normal 8.5-10.1 [facility] Comment on above: Result Comment: Canc elled via OM: Order cancelled - Patient discharged Performed By: #### L 500.2500, L100.0100 #### [facility] [address] [place], [address] CL Normal 98-107 [facility] Comment on above: Result Comment: Canc elled via OM: Order cancelled - Patient discharged Performed By: #### L 500.2500, L100.0100 #### [facility] [address] [place], [address] CO2 Normal 21.0-32.0 [facility] Comment on above: Result Comment: Canc elled via OM: Order cancelled - Patient discharged Performed By: #### L 500.2500, L100.0100 #### [facility] [address] [place], [address] CREAT,SERUM Normal 0.55-1.02 [facility] Comment on above: Result Comment: Canc elled via OM: Order cancelled - Patient discharged Performed By: #### L 500.2500, L100.0100 #### [facility] [address] [place], [address] EST GFR Normal >60 [facility] Comment on above: Result Comment: Canc elled via OM: Order cancelled - Patient discharged Performed By: #### L 500.2500, L100.0100 #### [facility] [address] [place], [address] EST GFR - AA Normal >60 [facility] Comment on above: Result Comment: Canc elled via OM: Order cancelled - Patient discharged Performed By: #### L 500.2500, L100.0100 #### [facility] [address] [place], [address] GAP Normal 5-15 [facility] Comment on above: Result Comment: Canc elled via OM: Order cancelled - Patient discharged Performed By: #### L 500.2500, L100.0100 #### [facility] [address] [place], [address] GLU Normal 74-106 [facility] Comment on above: Result Comment: Canc elled via OM: Order cancelled - Patient discharged Performed By: #### L 500.2500, L100.0100 #### [facility] [address] [place], [address] Potassium Normal 3.5-5.1 [facility] Comment on above: Result Comment: Canc elled via OM: Order cancelled - Patient discharged Performed By: #### L 500.2500, L100.0100 #### [facility] [address] [place], [address] Basic Metabolic Profile (BMP) Normal 136-145 [facility] Comment on above: Result Comment: Canc elled via OM: Order cancelled - Patient discharged Performed By: #### L 500.2500, L100.0100 #### [facility] [address] [place], [address] CBC W/Diff, Automatedon 02- Absolute Neut Normal 2.0-7.7 [facility] Comment on above: Result Comment: Canc elled via OM: Order cancelled - Patient discharged Performed By: #### L 500.2500, L100.0100 #### [facility] [address] [place], [address] HCT Normal 37-47 [facility] Comment on above: Result Comment: Canc elled via OM: Order cancelled - Patient discharged Performed By: #### L 500.2500, L100.0100 #### [facility] [address] [place], [address] HGB Normal 12.0-15.0 [facility] Comment on above: Result Comment: Canc elled via OM: Order cancelled - Patient discharged Performed By: #### L 500.2500, L100.0100 #### [facility] [address] [place], [address] MCH Normal 27.0-32.0 [facility] Comment on above: Result Comment: Canc elled via OM: Order cancelled - Patient discharged Performed By: #### L 500.2500, L100.0100 #### [facility] [address] [place], [address] MCHC Normal 32-36 [facility] Comment on above: Result Comment: Canc elled via OM: Order cancelled - Patient discharged Performed By: #### L 500.2500, L100.0100 #### [facility] [address] [place], [address] MCV Normal 81-99 [facility] Comment on above: Result Comment: Canc elled via OM: Order cancelled - Patient discharged Performed By: #### L 500.2500, L100.0100 #### [facility] [address] [place], [address] NEUT% Normal 47-70 [facility] Comment on above: Result Comment: Canc elled via OM: Order cancelled - Patient discharged Performed By: #### L 500.2500, L100.0100 #### [facility] [address] [place], [address] PLT Normal 150-450 [facility] Comment on above: Result Comment: Canc elled via OM: Order cancelled - Patient discharged Performed By: #### L 500.2500, L100.0100 #### [facility] [address] [place], [address] RBC Normal 4.2-5.4 [facility] Comment on above: Result Comment: Canc elled via OM: Order cancelled - Patient discharged Performed By: #### L 500.2500, L100.0100 #### [facility] [address] [place], [address] RDW CV Normal 11.6-14.6 [facility] Comment on above: Result Comment: Canc elled via OM: Order cancelled - Patient discharged Performed By: #### L 500.2500, L100.0100 #### [facility] [address] [place], [address] RDW SD Normal 35.1-43.9 [facility] Comment on above: Result Comment: Canc elled via OM: Order cancelled - Patient discharged Performed By: #### L 500.2500, L100.0100 #### [facility] [address] [place], [address] WBC Normal 4.4-11.0 [facility] Comment on above: Result Comment: Canc elled via OM: Order cancelled - Patient discharged Performed By: #### L 500.2500, L100.0100 #### [facility] [address] [place], [address] Basic Metabolic Profile (BMP )on 10-29-2024 BUN Normal 7-18 [facility] Comment on above: Result Comment: Canc elled via OM: Order cancelled - Patient discharged Performed By: #### L 500.2500, L100.0100 #### [facility] [address] [place], [address] BUN/CRE Normal 10-20 [facility] Comment on above: Result Comment: Canc elled via OM: Order cancelled - Patient discharged Performed By: #### L 500.2500, L100.0100 #### [facility] [address] [place], [address] CA,Total Normal 8.5-10.1 [facility] Comment on above: Result Comment: Canc elled via OM: Order cancelled - Patient discharged Performed By: #### L 500.2500, L100.0100 #### [facility] [address] [place], [address] CL Normal 98-107 [facility] Comment on above: Result Comment: Canc elled via OM: Order cancelled - Patient discharged Performed By: #### L 500.2500, L100.0100 #### [facility] [address] [place], [address] CO2 Normal 21.0-32.0 [facility] Comment on above: Result Comment: Canc elled via OM: Order cancelled - Patient discharged Performed By: #### L 500.2500, L100.0100 #### [facility] [address] [place], [address] CREAT,SERUM Normal 0.55-1.02 [facility] Comment on above: Result Comment: Canc elled via OM: Order cancelled - Patient discharged Performed By: #### L 500.2500, L100.0100 #### [facility] [address] [place], [address] EST GFR Normal >60 [facility] Comment on above: Result Comment: Canc elled via OM: Order cancelled - Patient discharged Performed By: #### L 500.2500, L100.0100 #### [facility] [address] [place], [address] EST GFR - AA Normal >60 [facility] Comment on above: Result Comment: Canc elled via OM: Order cancelled - Patient discharged Performed By: #### L 500.2500, L100.0100 #### [facility] [address] [place], [address] GAP Normal 5-15 [facility] Comment on above: Result Comment: Canc elled via OM: Order cancelled - Patient discharged Performed By: #### L 500.2500, L100.0100 #### [facility] [address] [place], [address] GLU Normal 74-106 [facility] Comment on above: Result Comment: Canc elled via OM: Order cancelled - Patient discharged Performed By: #### L 500.2500, L100.0100 #### [facility] [address] [place], [address] Potassium Normal 3.5-5.1 [facility] Comment on above: Result Comment: Canc elled via OM: Order cancelled - Patient discharged Performed By: #### L 500.2500, L100.0100 #### [facility] [address] [place], [address] Basic Metabolic Profile (BMP) Normal 136-145 [facility] Comment on above: Result Comment: Canc elled via OM: Order cancelled - Patient discharged Performed By: #### L 500.2500, L100.0100 #### [facility] [address] [place], [address] CBC W/Diff, Automatedon 02- Absolute Neut Normal 2.0-7.7 [facility] Comment on above: Result Comment: Canc elled via OM: Order cancelled - Patient discharged Performed By: #### L 500.2500, L100.0100 #### [facility] [address] [place], [address] HCT Normal 37-47 [facility] Comment on above: Result Comment: Canc elled via OM: Order cancelled - Patient discharged Performed By: #### L 500.2500, L100.0100 #### [facility] [address] [place], [address] HGB Normal 12.0-15.0 [facility] Comment on above: Result Comment: Canc elled via OM: Order cancelled - Patient discharged Performed By: #### L 500.2500, L100.0100 #### [facility] [address] [place], [address] MCH Normal 27.0-32.0 [facility] Comment on above: Result Comment: Canc elled via OM: Order cancelled - Patient discharged Performed By: #### L 500.2500, L100.0100 #### [facility] [address] [place], [address] MCHC Normal 32-36 [facility] Comment on above: Result Comment: Canc elled via OM: Order cancelled - Patient discharged Performed By: #### L 500.2500, L100.0100 #### [facility] [address] [place], [address] MCV Normal 81-99 [facility] Comment on above: Result Comment: Canc elled via OM: Order cancelled - Patient discharged Performed By: #### L 500.2500, L100.0100 #### [facility] [address] [place], [address] NEUT% Normal 47-70 [facility] Comment on above: Result Comment: Canc elled via OM: Order cancelled - Patient discharged Performed By: #### L 500.2500, L100.0100 #### [facility] [address] [place], [address] PLT Normal 150-450 [facility] Comment on above: Result Comment: Canc elled via OM: Order cancelled - Patient discharged Performed By: #### L 500.2500, L100.0100 #### [facility] [address] [place], [address] RBC Normal 4.2-5.4 [facility] Comment on above: Result Comment: Canc elled via OM: Order cancelled - Patient discharged Performed By: #### L 500.2500, L100.0100 #### [facility] [address] [place], [address] RDW CV Normal 11.6-14.6 [facility] Comment on above: Result Comment: Canc elled via OM: Order cancelled - Patient discharged Performed By: #### L 500.2500, L100.0100 #### [facility] [address] [place], [address] RDW SD Normal 35.1-43.9 [facility] Comment on above: Result Comment: Canc elled via OM: Order cancelled - Patient discharged Performed By: #### L 500.2500, L100.0100 #### [facility] [address] [place], [address] WBC Normal 4.4-11.0 [facility] Comment on above: Result Comment: Canc elled via OM: Order cancelled - Patient discharged Performed By: #### L 500.2500, L100.0100 #### [facility] [address] [place], [address] Basic Metabolic Profile (BMP )on 10-28-2024 BUN Normal 7-18 [facility] Comment on above: Result Comment: Canc elled via OM: Order cancelled - Patient discharged Performed By: #### L 500.2500, L100.0100 #### [facility] [address] [place], [address] BUN/CRE Normal 10-20 [facility] Comment on above: Result Comment: Canc elled via OM: Order cancelled - Patient discharged Performed By: #### L 500.2500, L100.0100 #### [facility] [address] [place], [address] CA,Total Normal 8.5-10.1 [facility] Comment on above: Result Comment: Canc elled via OM: Order cancelled - Patient discharged Performed By: #### L 500.2500, L100.0100 #### [facility] [address] [place], [address] CL Normal 98-107 [facility] Comment on above: Result Comment: Canc elled via OM: Order cancelled - Patient discharged Performed By: #### L 500.2500, L100.0100 #### [facility] [address] [place], [address] CO2 Normal 21.0-32.0 [facility] Comment on above: Result Comment: Canc elled via OM: Order cancelled - Patient discharged Performed By: #### L 500.2500, L100.0100 #### [facility] [address] [place], [address] CREAT,SERUM Normal 0.55-1.02 [facility] Comment on above: Result Comment: Canc elled via OM: Order cancelled - Patient discharged Performed By: #### L 500.2500, L100.0100 #### [facility] [address] [place], [address] EST GFR Normal >60 [facility] Comment on above: Result Comment: Canc elled via OM: Order cancelled - Patient discharged Performed By: #### L 500.2500, L100.0100 #### [facility] [address] [place], [address] EST GFR - AA Normal >60 [facility] Comment on above: Result Comment: Canc elled via OM: Order cancelled - Patient discharged Performed By: #### L 500.2500, L100.0100 #### [facility] [address] [place], [address] GAP Normal 5-15 [facility] Comment on above: Result Comment: Canc elled via OM: Order cancelled - Patient discharged Performed By: #### L 500.2500, L100.0100 #### [facility] [address] [place], [address] GLU Normal 74-106 [facility] Comment on above: Result Comment: Canc elled via OM: Order cancelled - Patient discharged Performed By: #### L 500.2500, L100.0100 #### [facility] [address] [place], [address] Potassium Normal 3.5-5.1 [facility] Comment on above: Result Comment: Canc elled via OM: Order cancelled - Patient discharged Performed By: #### L 500.2500, L100.0100 #### [facility] [address] [place], [address] Basic Metabolic Profile (BMP) Normal 136-145 [facility] Comment on above: Result Comment: Canc elled via OM: Order cancelled - Patient discharged Performed By: #### L 500.2500, L100.0100 #### [facility] [address] [place], [address] CBC W/Diff, Automatedon 02-0 Absolute Neut Normal 2.0-7.7 [facility] Comment on above: Result Comment: Canc elled via OM: Order cancelled - Patient discharged Performed By: #### L 500.2500, L100.0100 #### [facility] [address] [place], [address] HCT Normal 37-47 [facility] Comment on above: Result Comment: Canc elled via OM: Order cancelled - Patient discharged Performed By: #### L 500.2500, L100.0100 #### [facility] [address] [place], [address] HGB Normal 12.0-15.0 [facility] Comment on above: Result Comment: Canc elled via OM: Order cancelled - Patient discharged Performed By: #### L 500.2500, L100.0100 #### [facility] [address] [place], [address] MCH Normal 27.0-32.0 [facility] Comment on above: Result Comment: Canc elled via OM: Order cancelled - Patient discharged Performed By: #### L 500.2500, L100.0100 #### [facility] [address] [place], [address] MCHC Normal 32-36 [facility] Comment on above: Result Comment: Canc elled via OM: Order cancelled - Patient discharged Performed By: #### L 500.2500, L100.0100 #### [facility] [address] [place], [address] MCV Normal 81-99 [facility] Comment on above: Result Comment: Canc elled via OM: Order cancelled - Patient discharged Performed By: #### L 500.2500, L100.0100 #### [facility] [address] [place], [address] NEUT% Normal 47-70 [facility] Comment on above: Result Comment: Canc elled via OM: Order cancelled - Patient discharged Performed By: #### L 500.2500, L100.0100 #### [facility] [address] [place], [address] PLT Normal 150-450 [facility] Comment on above: Result Comment: Canc elled via OM: Order cancelled - Patient discharged Performed By: #### L 500.2500, L100.0100 #### [facility] [address] [place], [address] RBC Normal 4.2-5.4 [facility] Comment on above: Result Comment: Canc elled via OM: Order cancelled - Patient discharged Performed By: #### L 500.2500, L100.0100 #### [facility] [address] [place], [address] RDW CV Normal 11.6-14.6 [facility] Comment on above: Result Comment: Canc elled via OM: Order cancelled - Patient discharged Performed By: #### L 500.2500, L100.0100 #### [facility] [address] [place], [address] RDW SD Normal 35.1-43.9 [facility] Comment on above: Result Comment: Canc elled via OM: Order cancelled - Patient discharged Performed By: #### L 500.2500, L100.0100 #### [facility] [address] [place], [address] WBC Normal 4.4-11.0 [facility] Comment on above: Result Comment: Canc elled via OM: Order cancelled - Patient discharged Performed By: #### L 500.2500, L100.0100 #### [facility] [address] [place], [address] Basic Metabolic Profile (BMP )on 10-27-2024 BUN Normal 7-18 [facility] Comment on above: Result Comment: Canc elled via OM: Order cancelled - Patient discharged Performed By: #### L 500.2500, L100.0100 #### [facility] [address] [place], [address] BUN/CRE Normal 10-20 [facility] Comment on above: Result Comment: Canc elled via OM: Order cancelled - Patient discharged Performed By: #### L 500.2500, L100.0100 #### [facility] [address] [place], [address] CA,Total Normal 8.5-10.1 [facility] Comment on above: Result Comment: Canc elled via OM: Order cancelled - Patient discharged Performed By: #### L 500.2500, L100.0100 #### [facility] [address] [place], [address] CL Normal 98-107 [facility] Comment on above: Result Comment: Canc elled via OM: Order cancelled - Patient discharged Performed By: #### L 500.2500, L100.0100 #### [facility] [address] [place], [address] CO2 Normal 21.0-32.0 [facility] Comment on above: Result Comment: Canc elled via OM: Order cancelled - Patient discharged Performed By: #### L 500.2500, L100.0100 #### [facility] [address] [place], [address] CREAT,SERUM Normal 0.55-1.02 [facility] Comment on above: Result Comment: Canc elled via OM: Order cancelled - Patient discharged Performed By: #### L 500.2500, L100.0100 #### [facility] [address] [place], [address] EST GFR Normal >60 [facility] Comment on above: Result Comment: Canc elled via OM: Order cancelled - Patient discharged Performed By: #### L 500.2500, L100.0100 #### [facility] [address] [place], [address] EST GFR - AA Normal >60 [facility] Comment on above: Result Comment: Canc elled via OM: Order cancelled - Patient discharged Performed By: #### L 500.2500, L100.0100 #### [facility] [address] [place], [address] GAP Normal 5-15 [facility] Comment on above: Result Comment: Canc elled via OM: Order cancelled - Patient discharged Performed By: #### L 500.2500, L100.0100 #### [facility] [address] [place], [address] GLU Normal 74-106 [facility] Comment on above: Result Comment: Canc elled via OM: Order cancelled - Patient discharged Performed By: #### L 500.2500, L100.0100 #### [facility] [address] [place], [address] Potassium Normal 3.5-5.1 [facility] Comment on above: Result Comment: Canc elled via OM: Order cancelled - Patient discharged Performed By: #### L 500.2500, L100.0100 #### [facility] [address] [place], [address] Basic Metabolic Profile (BMP) Normal 136-145 [facility] Comment on above: Result Comment: Canc elled via OM: Order cancelled - Patient discharged Performed By: #### L 500.2500, L100.0100 #### [facility] [address] [place], [address] CBC W/Diff, Automatedon 02-0 -2024 Absolute Neut Normal 2.0-7.7 [facility] Comment on above: Result Comment: Canc elled via OM: Order cancelled - Patient discharged Performed By: #### L 500.2500, L100.0100 #### [facility] [address] [place], [address] HCT Normal 37-47 [facility] Comment on above: Result Comment: Canc elled via OM: Order cancelled - Patient discharged Performed By: #### L 500.2500, L100.0100 #### [facility] [address] [place], [address] HGB Normal 12.0-15.0 [facility] Comment on above: Result Comment: Canc elled via OM: Order cancelled - Patient discharged Performed By: #### L 500.2500, L100.0100 #### [facility] [address] [place], [address] MCH Normal 27.0-32.0 [facility] Comment on above: Result Comment: Canc elled via OM: Order cancelled - Patient discharged Performed By: #### L 500.2500, L100.0100 #### [facility] [address] [place], [address] MCHC Normal 32-36 [facility] Comment on above: Result Comment: Canc elled via OM: Order cancelled - Patient discharged Performed By: #### L 500.2500, L100.0100 #### [facility] [address] [place], [address] MCV Normal 81-99 [facility] Comment on above: Result Comment: Canc elled via OM: Order cancelled - Patient discharged Performed By: #### L 500.2500, L100.0100 #### [facility] [address] [place], [address] NEUT% Normal 47-70 [facility] Comment on above: Result Comment: Canc elled via OM: Order cancelled - Patient discharged Performed By: #### L 500.2500, L100.0100 #### [facility] [address] [place], [address] PLT Normal 150-450 [facility] Comment on above: Result Comment: Canc elled via OM: Order cancelled - Patient discharged Performed By: #### L 500.2500, L100.0100 #### [facility] [address] [place], [address] RBC Normal 4.2-5.4 [facility] Comment on above: Result Comment: Canc elled via OM: Order cancelled - Patient discharged Performed By: #### L 500.2500, L100.0100 #### [facility] [address] [place], [address] RDW CV Normal 11.6-14.6 [facility] Comment on above: Result Comment: Canc elled via OM: Order cancelled - Patient discharged Performed By: #### L 500.2500, L100.0100 #### [facility] [address] [place], [address] RDW SD Normal 35.1-43.9 [facility] Comment on above: Result Comment: Canc elled via OM: Order cancelled - Patient discharged Performed By: #### L 500.2500, L100.0100 #### [facility] [address] [place], [address] WBC Normal 4.4-11.0 [facility] Comment on above: Result Comment: Canc elled via OM: Order cancelled - Patient discharged Performed By: #### L 500.2500, L100.0100 #### [facility] [address] [place], [address] Respiratory Cultureon 2024 RESPC Mixed normal respiratory justice. No Haemophilus, Streptococcus pneumoniae, beta-hemolytic Streptococcus or Staphylococcus aureus isolated. Normal [facility] Comment on above: Performed By: #### L 500.2500, L100.0100 #### [facility] [address] [place], [address] Absolute lymphocyte countOrd ered By: Anayeli Mendoza on 10-26-2024 Lymphocytes Auto (Unsp spec) [#/Vol] 1.49 10*3/uL 0.83-4.51 [facility] Absolute neutrophil countOrd ered By: Anayeli Mendoza on 10-26-2024 Neutrophils (Bld) [#/Vol] 12.6 10*3/uL High 2.0-7.7 [facility] Automated lymphocyte count a s percentage of total leukocytesOrdered By: Anayeli Mendoza on 10-26-2024 Lymphocytes/100 WBC Auto (Unsp spec) 10.3 % Low 19-41 [facility] Basic Metabolic Profile (BMP )on 10-26-2024 BUN/CRE 33.5 RATIO High 10-20 [facility] Comment on above: Performed By: #### L 500.2500, L100.0100 #### [facility] [address] [place], [address] CA,Total 8.9 mg/dL Normal 8.5-10.1 [facility] Comment on above: Performed By: #### L 500.2500, L100.0100 #### [facility] [address] [place], [address] Chloride [Moles/Vol] 112 mmol/L High 98-107 [facility] Comment on above: Performed By: #### L 500.2500, L100.0100 #### [facility] [address] [place], [address] CO2 [Moles/Vol] 23.0 mmol/L Normal 21.0-32.0 [facility] Comment on above: Performed By: #### L 500.2500, L100.0100 #### [facility] [address] [place], [address] Creatinine [Mass/Vol] 0.42 mg/dL Low 0.55-1.02 [facility] Comment on above: Result Comment: The validity of the calculated GFR GFRAA in patients over 70 years has not been determined. Clinical correlation is essential. Performed By: #### L 500.2500, L100.0100 #### [facility] [address] [place], [address] ECRCL 168.41 ml/min Normal [facility] Comment on above: Performed By: #### L 500.2500, L100.0100 #### [facility] [address] [place], [address] EST GFR - AA 218 mL/min Normal >60 [facility] Comment on above: Result Comment: Afri can [place] GFR Calc Performed By: #### L 500.2500, L100.0100 #### [facility] [address] [place], [address] GAP 6 Normal 5-15 [facility] Comment on above: Performed By: #### L 500.2500, L100.0100 #### [facility] [address] [place], [address] GFR/1.73 sq M.predicted among non-blacks MDRD (S/P/Bld) [Vol rate/Area] 180 mL/min/{1.73_m2} Normal >60 [facility] Comment on above: Result Comment: Non- GFR Calc Performed By: #### L 500.2500, L100.0100 #### [facility] [address] [place], [address] Glucose [Mass/Vol] 143 mg/dL High 74-106 [facility] Comment on above: Result Comment: Fast ing Glucose result greater than or equal to 126 mg/dL suggests DIABETES MELLITUS per A.D.A. criteria. Performed By: #### L 500.2500, L100.0100 #### [facility] [address] [place], [address] Potassium [Moles/Vol] 3.9 mmol/L Normal 3.5-5.1 [facility] Comment on above: Performed By: #### L 500.2500, L100.0100 #### [facility] [address] [place], [address] Sodium [Moles/Vol] 141 mmol/L Normal 136-145 [facility] Comment on above: Performed By: #### L 500.2500, L100.0100 #### [facility] [address] [place], [address] Urea nitrogen [Mass/Vol] 14 mg/dL Normal 7-18 [facility] Comment on above: Performed By: #### L 500.2500, L100.0100 #### [facility] [address] [place], [address] Basophil percentageOrdered B y: Anayeli Mendoza on 10-26-2024 Basophils/100 WBC (Bld) 0.1 % 0-1 [facility] Blood urea nitrogen (BUN)/cr eatinine ratioOrdered By: Anayeli Mendoza on 10-26-2024 Urea nitrogen/Creatinine [Mass ratio] 33.5 mg/mg High 10-20 [facility] CBC W/Diff, Automatedon Absolute Lymph 1.49 X10 3/uL Normal 0.83-4.51 [facility] Comment on above: Performed By: #### L 500.2500, L100.0100 #### [facility] [address] [place], [address] Absolute Neut 12.6 X10 3/uL High 2.0-7.7 [facility] Comment on above: Performed By: #### L 500.2500, L100.0100 #### [facility] [address] [place], [address] Basophils/100 WBC (Bld) 0.1 % Normal 0-1 [facility] Comment on above: Performed By: #### L 500.2500, L100.0100 #### [facility] [address] [place], [address] Eosinophils/100 WBC (Bld) 0.1 % Normal 0-5 [facility] Comment on above: Performed By: #### L 500.2500, L100.0100 #### [facility] [address] [place], [address] Erythrocyte distribution width (RBC) [Ratio] 12.5 % Normal 11.6-14.6 [facility] Comment on above: Performed By: #### L 500.2500, L100.0100 #### [facility] [address] [place], [address] Hematocrit (Bld) [Volume fraction] 41.6 % Normal 37-47 [facility] Comment on above: Performed By: #### L 500.2500, L100.0100 #### [facility] [address] [place], [address] Hemoglobin (Bld) [Mass/Vol] 13.3 g/dL Normal 12.0-15.0 [facility] Comment on above: Performed By: #### L 500.2500, L100.0100 #### [facility] [address] [place], [address] IG% 0.600 Normal 0.0-0.9 [facility] Comment on above: Result Comment: IG% - Immature Granulocytes (promyelocytes, myelocytes and metamyelocytes) > 1% indicates that a LEFT SHIFT is Present. Performed By: #### L 500.2500, L100.0100 #### [facility] [address] [place], [address] Lymphocytes/100 WBC (Bld) 10.3 % Low 19-41 [facility] Comment on above: Performed By: #### L 500.2500, L100.0100 #### [facility] [address] [place], [address] MCH (RBC) [Entitic mass] 28.1 pg Normal 27.0-32.0 [facility] Comment on above: Performed By: #### L 500.2500, L100.0100 #### [facility] [address] [place], [address] MCHC (RBC) [Mass/Vol] 32.0 g/dL Normal 32-36 [facility] Comment on above: Performed By: #### L 500.2500, L100.0100 #### [facility] [address] [place], [address] MCV (RBC) [Entitic vol] 87.8 fL Normal 81-99 [facility] Comment on above: Performed By: #### L 500.2500, L100.0100 #### [facility] [address] [place], [address] Monocytes/100 WBC (Bld) 1.9 % Normal 0-10 [facility] Comment on above: Performed By: #### L 500.2500, L100.0100 #### [facility] [address] [place], [address] Neutrophils/100 WBC (Bld) 87.0 % High 47-70 [facility] Comment on above: Performed By: #### L 500.2500, L100.0100 #### [facility] [address] [place], [address] Nucleated RBC (Bld) [#/Vol] 0 10*3/uL Normal 0-5 [facility] Comment on above: Performed By: #### L 500.2500, L100.0100 #### [facility] [address] [place], [address] Platelet mean volume (Bld) [Entitic vol] 10.8 fL Normal 6.2-12.0 [facility] Comment on above: Performed By: #### L 500.2500, L100.0100 #### [facility] [address] [place], [address] Platelets (Bld) [#/Vol] 237 10*3/uL Normal 150-450 [facility] Comment on above: Performed By: #### L 500.2500, L100.0100 #### [facility] [address] [place], [address] RBC (Bld) [#/Vol] 4.74 10*6/uL Normal 4.2-5.4 [facility] Comment on above: Performed By: #### L 500.2500, L100.0100 #### [facility] [address] [place], [address] RDW SD 40.3 fl Normal 35.1-43.9 [facility] Comment on above: Performed By: #### L 500.2500, L100.0100 #### [facility] [address] [place], [address] WBC (Bld) [#/Vol] 14.5 10*3/uL High 4.4-11.0 [facility] Comment on above: Performed By: #### L 500.2500, L100.0100 #### [facility] [address] [facility] [place], [address] Carbon dioxide measurementOr dered By: Anayeli Mendoza on 10-26-2024 CO2 [Moles/Vol] 23.0 mmol/L 21.0-32.0 [facility] Chloride measurementOrdered By: Anayeli Mendoza on 10-26-2024 Chloride [Moles/Vol] 112 mmol/L High 98-107 [facility] Discharge Instructionon 02 Discharge Instruction [facility] Medical Records Department [address] [place] [address] Instructions for Home/Discharge Instructions 10/26/24 1327 MR#: [id number] Acct: [id number] Name: ARLET NAVARRO Rep #: [id number] : 1985 39 From: Anayeli Mendoza MD PCP: Dr. Ian Mon MD Status:ADM IN Discharge Instructions Diet Discharge Diet: Low fat / Low cholesterol DC O2, CPAP, BIPAP needs Home O2 Discharge instructions: No Dressing / Incision Discharge Activity: Return to Normal Activity Weight Bearing Status: Weight bearing as tolerated Dressing / Incision Call your doctor if you observe: Fever of 101 or Higher, Shortness of breath, Dizziness and Chest pain Follow Up Care Test Results: Test results from this visit will be discussed in further detail at your follow-up appointment, if applicable. Discharge Plan Admission Admit Date/Time: 10/24/24 20:10 Primary Reason for Your Visit: RSV infection Attending Provider: Anayeli Mendoza Primary Care Provider: Ian Mon Consulting Providers: Claudette Cooney Instructions Patient Instructions: Bronchiolitis, RSV (Respiratory Syncytial Virus) Discharge Orders/Prescriptions Prescriptions: New prednisone 20 mg tablet 40 mg PO DAILY Qty: 10 0RF Continued omeprazole 40 mg capsule,delayed release(DR/EC) 40 mg PO DAILY albuterol sulfate [Ventolin HFA] 90 mcg/actuation HFA aerosol inhaler 1 - 2 puff inhalation Q4H PRN PRN (Reason: Wheezing) Qty: 1 0RF loratadine [Allergy Relief (loratadine)] 10 mg tablet 10 mg PO DAILY melatonin 5 mg capsule 5 mg PO QHS Referrals / Follow Up: Ian Mon MD [Primary Care Provider] - Within 1 Week Disposition Disposition (needs filled in before D/C Order can be placed): Home, Self Care 10/26/24 1328 Anayeli Mendoza MD CC: Dr. Claudette Cooney MD; Dr. Ian Mon MD Signed Normal [facility] Eosinophil percentageOrdered By: Anayeli Mendoza on 10-26-2024 Eosinophils/100 WBC (Bld) 0.1 % 0-5 [facility] Erythrocyte distribution wid th (RBC) [Ratio]Ordered By: Anayeli Mendoza on 10-26-2024 Erythrocyte distribution width (RBC) [Entitic vol] 40.3 fL 35.1-43.9 [facility] Erythrocyte distribution wid th ratioOrdered By: Anayeli Mendoza on 10-26-2024 Erythrocyte distribution width (RBC) [Ratio] 12.5 % 11.6-14.6 [facility] Erythrocyte distribution wid th standard deviationOrdered By: Anayeli Mendoza on 10-26-2024 Erythrocyte distribution width (RBC) [Ratio] 40.3 fl 35.1-43.9 [facility] Estimated glomerular filtrat ion rate (GFR) AmericanOrdered By: Anayeli Mendoza on 10-26-2024 Estimated GFR (MDRD) Amer 218 mL/min >60 [facility] Comment on above: GFR Calc Estimation of creatinine mich aranceOrdered By: Anayeli Mendoza on 10-26-2024 Estimated Creatinine Clearance Calc 168.41 ml/min [facility] Glomerular filtration rate ( GFR) estimationOrdered By: Anayeli Mendoza on 10-26-2024 Estimated GFR (MDRD) Non-Af Amer 180 mL/min >60 [facility] Comment on above: Non- GFR Calc GFR/1.73 sq M.predicted among non-blacks MDRD (S/P/Bld) [Vol rate/Area] 180 mL/min/{1.73_m2} >60 [facility] Comment on above: Non- GFR Calc Glucose measurementOrdered B y: Anayeli Mendoza on 10-26-2024 Glucose [Mass/Vol] 143 mg/dL High 74-106 [facility] Comment on above: Fasting Glucose resu lt greater than or equal to 126 mg/dL suggests DIABETES MELLITUS per A.D.A. criteria. Gram Stainon 10-26-2024 GS Acceptable Specimen? Yes (<25 Epithelial cells per/lpf) Gram Stain 2+ Gram positive cocci in chains 2+ Gram positive cocci in clusters 1+ Gram positive rods 1+ Epithelial cells 2+ White Blood Cells Normal [facility] Comment on above: Performed By: #### L 500.2500, L100.0100 #### [facility] Laboratory [employer] [address] [place], [address] Hematocrit Auto (Bld) [Volum e fraction]Ordered By: Anayeli Mendoza on 10-26-2024 Hematocrit (Bld) [Volume fraction] 41.6 % 37-47 [facility] Hemoglobin measurementOrdere d By: Anayeli eMndoza on 10-26-2024 Hemoglobin (Bld) [Mass/Vol] 13.3 g/dL 12.0-15.0 [facility] Immature granulocytes/100 WB C Auto (Bld)Ordered By: Anayeli Mendoza on 10-26-2024 Immature granulocytes/100 WBC (Bld) 0.600 % 0.0-0.9 [facility] Comment on above: IG% - Immature Granu locytes (promyelocytes, myelocytes and metamyelocytes) > 1% indicates that a LEFT SHIFT is Present. Lymphocytes Auto (Unsp spec) [#/Vol]Ordered By: Anayeli Mendoza on 10-26-2024 Lymphocytes (Bld) [#/Vol] 1.49 10*3/uL 0.83-4.51 [facility] Lymphocytes/100 WBC Auto (Un sp spec)Ordered By: Anayeli Mendoza on 10-26-2024 Lymphocytes/100 WBC (Bld) 10.3 % Low 19-41 [facility] MCV (mean corpuscular volume ) determinationOrdered By: Anayeli Mendoza on 10-26-2024 MCV (RBC) [Entitic vol] 87.8 fL 81-99 [facility] Mean corpuscular hemoglobin (MCH) determinationOrdered By: Anayeli Mendoza on 10-26-2024 MCH (RBC) [Entitic mass] 28.1 pg 27.0-32.0 [facility] Mean corpuscular hemoglobin concentration (MCHC) determinationOrdered By: Anayeli Mendoza on 10-26-2024 MCHC (RBC) [Mass/Vol] 32.0 g/dL 32-36 [facility] Mean platelet volume determi nationOrdered By: Anayeli Mendoza on 10-26-2024 Platelet mean volume (Bld) [Entitic vol] 10.8 fL 6.2-12.0 [facility] Monocyte percentageOrdered B y: Anayeli Mendoza on 10-26-2024 Monocytes/100 WBC (Bld) 1.9 % 0-10 [facility] Neutrophil percentageOrdered By: Anayeli Mendoza on 10-26-2024 Neutrophils/100 WBC (Bld) 87.0 % High 47-70 [facility] Nucleated red blood cell per centageOrdered By: Anayeli Mendoza on 10-26-2024 Nucleated RBC/100 WBC (Bld) [Ratio] 0 % 0-5 [facility] Platelet countOrdered By: Na marjan Mendoza on 10-26-2024 Platelets (Bld) [#/Vol] 237 10*3/uL 150-450 [facility] Potassium measurementOrdered By: Anayeli Mendoza on 10-26-2024 Potassium [Moles/Vol] 3.9 mmol/L 3.5-5.1 [facility] RBC Auto (Bld) [#/Vol]Ordere d By: Anayeli Mendoza on 10-26-2024 RBC (Bld) [#/Vol] 4.74 10*6/uL 4.2-5.4 [facility] Serum anion gap measurementO rdered By: Anayeli Mendoza on 10-26-2024 Anion gap [Moles/Vol] 6 mmol/L 5-15 [facility] Serum or plasma calcium viola urement (mass/volume)Ordered By: Anayeli Mendoza on 10-26-2024 Calcium [Mass/Vol] 8.9 mg/dL 8.5-10.1 [facility] Serum or plasma creatinine m easurement (mass/volume)Ordered By: Anayeli Mendoza on 10-26-2024 Creatinine [Mass/Vol] 0.42 mg/dL Low 0.55-1.02 [facility] Comment on above: The validity of the calculated GFR & GFRAA in patients over 70 years has not been determined. Clinical correlation is essential. Serum or plasma urea nitroge n measurement (mass/volume)Ordered By: Anayeli Mendoza on 10-26-2024 Urea nitrogen [Mass/Vol] 14 mg/dL 7-18 [facility] Sodium levelOrdered By: Anayeli Mendoza on 10-26-2024 Sodium [Moles/Vol] 141 mmol/L 136-145 [facility] White blood cell (WBC) count Ordered By: Anayeli Mendoza on 10-26-2024 WBC (Bld) [#/Vol] 14.5 10*3/uL High 4.4-11.0 [facility] Albumin to globulin ratioOrd ered By: Claudette Cooney on 10-25-2024 Albumin/Globulin [Mass ratio] 0.7 {ratio} Low 0.9-2.4 [facility] Bilirubin, totalOrdered By: Claudette Cooney on 10-25-2024 Bilirubin [Mass/Vol] 0.30 mg/dL 0.20-1.00 [facility] Comment on above: For patients on eltr ombopag therapy, use of Dimension [place] TBIL is not recommended. CBC W/Diff, Automatedon Absolute Lymph 0.95 X10 3/uL Normal 0.83-4.51 [facility] Comment on above: Performed By: #### L 100.0100, L500.4050 #### [facility] Laboratory [employer] [address] [place], [address] Absolute Neut 7.3 X10 3/uL Normal 2.0-7.7 [facility] Comment on above: Performed By: #### L 100.0100, L500.4050 #### [facility] Laboratory [address] [place], [address] Basophils/100 WBC (Bld) 0.2 % Normal 0-1 [facility] Comment on above: Performed By: #### L 100.0100, L500.4050 #### [facility] Laboratory [address] [place], [address] Eosinophils/100 WBC (Bld) 0.0 % Normal 0-5 [facility] Comment on above: Performed By: #### L 100.0100, L500.4050 #### [facility] Laboratory [address] [place], [address] Erythrocyte distribution width (RBC) [Ratio] 12.9 % Normal 11.6-14.6 [facility] Comment on above: Performed By: #### L 100.0100, L500.4050 #### [facility] Laboratory [address] [place], [address] Hematocrit (Bld) [Volume fraction] 41.6 % Normal 37-47 [facility] Comment on above: Performed By: #### L 100.0100, L500.4050 #### [facility] Laboratory [address] [place], [address] Hemoglobin (Bld) [Mass/Vol] 13.4 g/dL Normal 12.0-15.0 [facility] Comment on above: Performed By: #### L 100.0100, L500.4050 #### [facility] Laboratory [address] [place], [address] IG% 0.400 Normal 0.0-0.9 [facility] Comment on above: Result Comment: IG% - Immature Granulocytes (promyelocytes, myelocytes and metamyelocytes) > 1% indicates that a LEFT SHIFT is Present. Performed By: #### L 100.0100, L500.4050 #### [facility] Laboratory [address] [place], [address] Lymphocytes/100 WBC (Bld) 11.3 % Low 19-41 [facility] Comment on above: Performed By: #### L 100.0100, L500.4050 #### [facility] Laboratory [address] [place], [address] MCH (RBC) [Entitic mass] 28.8 pg Normal 27.0-32.0 [facility] Comment on above: Performed By: #### L 100.0100, L500.4050 #### [facility] Laboratory [address] [place], [address] MCHC (RBC) [Mass/Vol] 32.2 g/dL Normal 32-36 [facility] Comment on above: Performed By: #### L 100.0100, L500.4050 #### [facility] Laboratory [address] [place], [address] MCV (RBC) [Entitic vol] 89.3 fL Normal 81-99 [facility] Comment on above: Performed By: #### L 100.0100, L500.4050 #### [facility] Laboratory [address] [place], [address] Monocytes/100 WBC (Bld) 0.8 % Normal 0-10 [facility] Comment on above: Performed By: #### L 100.0100, L500.4050 #### [facility] Laboratory [address] [place], [address] Neutrophils/100 WBC (Bld) 87.3 % High 47-70 [facility] Comment on above: Performed By: #### L 100.0100, L500.4050 #### [facility] Laboratory [address] [place], [address] Nucleated RBC (Bld) [#/Vol] 0 10*3/uL Normal 0-5 [facility] Comment on above: Performed By: #### L 100.0100, L500.4050 #### [facility] Laboratory [address] [place], [address] Platelet mean volume (Bld) [Entitic vol] 11.1 fL Normal 6.2-12.0 [facility] Comment on above: Performed By: #### L 100.0100, L500.4050 #### [facility] Laboratory [address] [place], [address] Platelets (Bld) [#/Vol] 233 10*3/uL Normal 150-450 [facility] Comment on above: Performed By: #### L 100.0100, L500.4050 #### [facility] Laboratory [address] [place], [address] RBC (Bld) [#/Vol] 4.66 10*6/uL Normal 4.2-5.4 [facility] Comment on above: Performed By: #### L 100.0100, L500.4050 #### [facility] Laboratory [address] [place], [address] RDW SD 42.1 fl Normal 35.1-43.9 [facility] Comment on above: Performed By: #### L 100.0100, L500.4050 #### [facility] Laboratory [address] [place], [address] WBC (Bld) [#/Vol] 8.4 10*3/uL Normal 4.4-11.0 [facility] Comment on above: Performed By: #### L 100.0100, L500.4050 #### [facility] Laboratory [address] [place], [address] Comprehensive Metabolic Prof ilon 10-25-2024 Albumin [Mass/Vol] 2.8 g/dL Low 3.2-5.0 [facility] Comment on above: Performed By: #### L 100.0100, L500.4050 #### [facility] Laboratory [address] [place], [address] Albumin/Globulin [Mass ratio] 0.7 {ratio} Low 0.9-2.4 [facility] Comment on above: Performed By: #### L 100.0100, L500.4050 #### [facility] Laboratory [address] [place], [address] ALK P 40 U/L Low 45-117 [facility] Comment on above: Performed By: #### L 100.0100, L500.4050 #### [facility] Laboratory [address] [place], [address] ALT [Catalytic activity/Vol] 72 U/L High 13-56 [facility] Comment on above: Performed By: #### L 100.0100, L500.4050 #### [facility] Laboratory [address] [place], [address] AST [Catalytic activity/Vol] 42 U/L High 15-37 [facility] Comment on above: Performed By: #### L 100.0100, L500.4050 #### [facility] Laboratory [address] [place], [address] Bilirubin [Mass/Vol] 0.30 mg/dL Normal 0.20-1.00 [facility] Comment on above: Result Comment: For patients on eltrombopag therapy, use of Dimension [place] TBIL is not recommended. Performed By: #### L 100.0100, L500.4050 #### [facility] Laboratory [address] [place], [address] BUN/CRE 19.0 RATIO Normal 10-20 [facility] Comment on above: Performed By: #### L 100.0100, L500.4050 #### [facility] Laboratory [address] [place], [address] CA,Total 8.3 mg/dL Low 8.5-10.1 [facility] Comment on above: Performed By: #### L 100.0100, L500.4050 #### [facility] Laboratory [address] [place], [address] Chloride [Moles/Vol] 112 mmol/L High 98-107 [facility] Comment on above: Performed By: #### L 100.0100, L500.4050 #### [facility] Laboratory [address] [place], [address] CO2 [Moles/Vol] 21.0 mmol/L Normal 21.0-32.0 [facility] Comment on above: Performed By: #### L 100.0100, L500.4050 #### [facility] Laboratory [address] [place], [address] Creatinine [Mass/Vol] 0.53 mg/dL Low 0.55-1.02 [facility] Comment on above: Result Comment: The validity of the calculated GFR GFRAA in patients over 70 years has not been determined. Clinical correlation is essential. Performed By: #### L 100.0100, L500.4050 #### [facility] Laboratory [address] [place], [address] ECRCL 135.18 ml/min Normal [facility] Comment on above: Performed By: #### L 100.0100, L500.4050 #### [facility] Laboratory [address] [place], [address] EST GFR - AA 167 mL/min Normal >60 [facility] Comment on above: Result Comment: Afri can [place] GFR Calc Performed By: #### L 100.0100, L500.4050 #### [facility] Laboratory [address] [place], [address] GAP 7 Normal 5-15 [facility] Comment on above: Performed By: #### L 100.0100, L500.4050 #### [facility] Laboratory [address] [place], [address] GFR/1.73 sq M.predicted among non-blacks MDRD (S/P/Bld) [Vol rate/Area] 138 mL/min/{1.73_m2} Normal >60 [facility] Comment on above: Result Comment: Non- GFR Calc Performed By: #### L 100.0100, L500.4050 #### [facility] Laboratory [address] [place], [address] Globulin (S) [Mass/Vol] 3.9 g/dL Normal 2.2-4.2 [facility] Comment on above: Performed By: #### L 100.0100, L500.4050 #### [facility] Laboratory [address] [place], [address] Glucose [Mass/Vol] 182 mg/dL High 74-106 [facility] Comment on above: Result Comment: Fast ing Glucose result greater than or equal to 126 mg/dL suggests DIABETES MELLITUS per A.D.A. criteria. Performed By: #### L 100.0100, L500.4050 #### [facility] Laboratory [address] [place], [address] Potassium [Moles/Vol] 4.1 mmol/L Normal 3.5-5.1 [facility] Comment on above: Performed By: #### L 100.0100, L500.4050 #### [facility] Laboratory [address] [place], [address] Sodium [Moles/Vol] 140 mmol/L Normal 136-145 [facility] Comment on above: Performed By: #### L 100.0100, L500.4050 #### [facility] Laboratory [address] [place], [address] T PROT 6.7 g/dL Normal 6.4-8.2 [facility] Comment on above: Performed By: #### L 100.0100, L500.4050 #### [facility] Laboratory [address] [place], [place], [address] Urea nitrogen [Mass/Vol] 10 mg/dL Normal 7-18 [facility] Comment on above: Performed By: #### L 100.0100, L500.4050 #### [facility] Laboratory [address] [place], [address] Gram stainOrdered By: Claudette Ivet on 10-25-2024 Microscopic observation Gram stain Nom (Unsp spec) [facility] Laboratory - Chemistry and C hemistry - challengeOrdered By: Claudette Cooney on 10-25-2024 AST [Catalytic activity/Vol] 42 U/L High 15-37 [facility] Microbial respiratory cultur eOrdered By: Claudette Cooney on 10-25-2024 Microorganism identified Cx Nom (Unsp spec) [facility] Microorganism identified Cx Nom (Unsp spec)Ordered By: Ivet on 10-25-2024 Respiratory Culture [facility] RESPIRATORY PANEL MOLECULARo n 10-25-2024 RP PANEL ADENOVIRUS Not Detected INFLUENZA A Not Detected INFLUENZA A (SUBTYPE H1) Not Detected INFLUENZA A (SUBTYPE H3) Not Detected INFLUENZA B Not Detected HUMAN METAPHNEUMO Not Detected PARAINFLUENZA 1 Not Detected PARAINFLUENZA 2 Not Detected PARAINFLUENZA 3 Not Detected PARAINFLUENZA 4 Not Detected RHINOVIRUS Not Detected RSV A Not Detected RSV B Not Detected Normal [facility] Comment on above: Performed By: #### L 500.2500, L100.0100 #### [facility] Laboratory [address] [place], [place], [address] Serum globulin measurementOr dered By: Claudette Cooney on 10-25-2024 Globulin (S) [Mass/Vol] 3.9 g/dL 2.2-4.2 [facility] Serum or plasma alanine pollock otransferase (ALT) measurementOrdered By: Claudette Cooney on 10-25-2024 ALT [Catalytic activity/Vol] 72 U/L High 13-56 [facility] Serum or plasma albumin viola urement (mass/volume)Ordered By: Claudette Ivet on 10-25-2024 Albumin [Mass/Vol] 2.8 g/dL Low 3.2-5.0 [facility] Serum or plasma alkaline amalia sphatase measurementOrdered By: Claudette Ivet on 10-25-2024 ALP [Catalytic activity/Vol] 40 U/L Low 45-117 [facility] Total proteinOrdered By: Aut radhan Ivet on 10-25-2024 Protein [Mass/Vol] 6.7 g/dL 6.4-8.2 [facility] 12 Lead EKGon 10-24-2024 12 Lead EKG [facility] [address] [address] 12 Lead EKG 10/24/24 1618 MR#: [id number] Acct: [id number] Name: ARLET NAVARRO Rep #: [id number] : 1985 39 From: Theodore Russell MD Attending Dr: Dr. Anayeli Mendoza MD Status: DI S IN Ordering Dr: Bo Jordan DO Date: 5 Location: [facility] Sex: F C Admitted: 10/24/24 Test Reason : SOB Blood Pressure : */* mmHG Vent. Rate : 109 BPM Atrial Rate : 109 BPM P-R Int : 116 ms QRS Dur : 70 ms QT Int : 350 ms P-R-T Axes : 65 71 73 degrees QTcB Int : 471 ms Sinus tachycardia Otherwise normal ECG Confirmed by THEODORE RUSSELL MD ([id number]), newspaper editor WILDA MICHAELS ([id number]) on 10/27/2024 7:19:45 AM Referred By: Bo Jordan Confirmed By: THEODORE RUSSELL MD 10/27/24 0719 Date Theodore Russell MD CC: Dr. Bo Jordan DO; Dr. Ian Mon MD; Dr. Anayeli Mendoza MD Signed Normal [facility] Basic Metabolic Profile (BMP )on 10-24-2024 BUN/CRE 25.1 RATIO High 10-20 [facility] Comment on above: Order Comment: 'TROP ' Serial specimen #1, #2 or #3: 1 Performed By: #### L 500.2500, L100.0100 #### [facility] Laboratory [address] [place], [address] CA,Total 8.8 mg/dL Normal 8.5-10.1 [facility] Comment on above: Order Comment: 'TROP ' Serial specimen #1, #2 or #3: 1 Performed By: #### L 500.2500, L100.0100 #### [facility] Laboratory [address] [place], [address] Chloride [Moles/Vol] 110 mmol/L High 98-107 [facility] Comment on above: Order Comment: 'TROP ' Serial specimen #1, #2 or #3: 1 Performed By: #### L 500.2500, L100.0100 #### [facility] Laboratory [address] [place], [address] CO2 [Moles/Vol] 25.0 mmol/L Normal 21.0-32.0 [facility] Comment on above: Order Comment: 'TROP ' Serial specimen #1, #2 or #3: 1 Performed By: #### L 500.2500, L100.0100 #### [facility] Laboratory [address] [place], [address] Creatinine [Mass/Vol] 0.52 mg/dL Low 0.55-1.02 [facility] Comment on above: Order Comment: 'TROP ' Serial specimen #1, #2 or #3: 1 Result Comment: The validity of the calculated GFR GFRAA in patients over 70 years has not been determined. Clinical correlation is essential. Performed By: #### L 500.2500, L100.0100 #### [facility] Laboratory [address] [place], [address] ECRCL 137.17 ml/min Normal [facility] Comment on above: Order Comment: 'TROP ' Serial specimen #1, #2 or #3: 1 Performed By: #### L 500.2500, L100.0100 #### [facility] Laboratory [address] [place], [address] EST GFR - AA 170 mL/min Normal >60 [facility] Comment on above: Order Comment: 'TROP ' Serial specimen #1, #2 or #3: 1 Result Comment: Afri can [place] GFR Calc Performed By: #### L 500.2500, L100.0100 #### [facility] Laboratory [address] [place], [address] GAP 5 Normal 5-15 [facility] Comment on above: Order Comment: 'TROP ' Serial specimen #1, #2 or #3: 1 Performed By: #### L 500.2500, L100.0100 #### [facility] [address] [place], [address] GFR/1.73 sq M.predicted among non-blacks MDRD (S/P/Bld) [Vol rate/Area] 141 mL/min/{1.73_m2} Normal >60 [facility] Comment on above: Order Comment: 'TROP ' Serial specimen #1, #2 or #3: 1 Result Comment: Non- GFR Calc Performed By: #### L 500.2500, L100.0100 #### [facility] [address] [place], [address] Glucose [Mass/Vol] 92 mg/dL Normal 74-106 [facility] Comment on above: Order Comment: 'TROP ' Serial specimen #1, #2 or #3: 1 Performed By: #### L 500.2500, L100.0100 #### [facility] [address] [place], [address] Potassium [Moles/Vol] 3.7 mmol/L Normal 3.5-5.1 [facility] Comment on above: Order Comment: 'TROP ' Serial specimen #1, #2 or #3: 1 Performed By: #### L 500.2500, L100.0100 #### [facility] [address] [place], [address] Sodium [Moles/Vol] 140 mmol/L Normal 136-145 [facility] Comment on above: Order Comment: 'TROP ' Serial specimen #1, #2 or #3: 1 Performed By: #### L 500.2500, L100.0100 #### [facility] [address] [place], [address] Urea nitrogen [Mass/Vol] 13 mg/dL Normal 7-18 [facility] Comment on above: Order Comment: 'TROP ' Serial specimen #1, #2 or #3: 1 Performed By: #### L 500.2500, L100.0100 #### [facility] [address] [place], [address] CBC W/Diff, Automatedon 02-0 5-2025 Absolute Lymph 2.22 X10 3/uL Normal 0.83-4.51 [facility] Comment on above: Performed By: #### L 500.2500, L100.0100 #### [facility] [address] [place], [address] Absolute Neut 10.2 X10 3/uL High 2.0-7.7 [facility] Comment on above: Performed By: #### L 500.2500, L100.0100 #### [facility] [address] [place], [address] Basophils/100 WBC (Bld) 0.4 % Normal 0-1 [facility] Comment on above: Performed By: #### L 500.2500, L100.0100 #### [facility] [address] [place], [address] Eosinophils/100 WBC (Bld) 2.1 % Normal 0-5 [facility] Comment on above: Performed By: #### L 500.2500, L100.0100 #### [facility] [address] [place], [address] Erythrocyte distribution width (RBC) [Ratio] 12.8 % Normal 11.6-14.6 [facility] Comment on above: Performed By: #### L 500.2500, L100.0100 #### [facility] [address] [place], [address] Hematocrit (Bld) [Volume fraction] 42.9 % Normal 37-47 [facility] Comment on above: Performed By: #### L 500.2500, L100.0100 #### [facility] [address] [place], [address] Hemoglobin (Bld) [Mass/Vol] 13.7 g/dL Normal 12.0-15.0 [facility] Comment on above: Performed By: #### L 500.2500, L100.0100 #### [facility] [address] [place], [address] IG% 0.400 Normal 0.0-0.9 [facility] Comment on above: Result Comment: IG% - Immature Granulocytes (promyelocytes, myelocytes and metamyelocytes) > 1% indicates that a LEFT SHIFT is Present. Performed By: #### L 500.2500, L100.0100 #### [facility] [address] [place], [address] Lymphocytes/100 WBC (Bld) 16.4 % Low 19-41 [facility] Comment on above: Performed By: #### L 500.2500, L100.0100 #### [facility] [address] [place], [address] MCH (RBC) [Entitic mass] 28.5 pg Normal 27.0-32.0 [facility] Comment on above: Performed By: #### L 500.2500, L100.0100 #### [facility] [address] [place], [address] MCHC (RBC) [Mass/Vol] 31.9 g/dL Low 32-36 [facility] Comment on above: Performed By: #### L 500.2500, L100.0100 #### [facility] [address] [place], [address] MCV (RBC) [Entitic vol] 89.4 fL Normal 81-99 [facility] Comment on above: Performed By: #### L 500.2500, L100.0100 #### [facility] [address] [place], [address] Monocytes/100 WBC (Bld) 5.6 % Normal 0-10 [facility] Comment on above: Performed By: #### L 500.2500, L100.0100 #### [facility] [address] [place], [address] Neutrophils/100 WBC (Bld) 75.1 % High 47-70 [facility] Comment on above: Performed By: #### L 500.2500, L100.0100 #### [facility] [address] [place], [address] Nucleated RBC (Bld) [#/Vol] 0 10*3/uL Normal 0-5 [facility] Comment on above: Performed By: #### L 500.2500, L100.0100 #### [facility] [address] [place], [address] Platelet mean volume (Bld) [Entitic vol] 10.4 fL Normal 6.2-12.0 [facility] Comment on above: Performed By: #### L 500.2500, L100.0100 #### [facility] [address] [place], [address] Platelets (Bld) [#/Vol] 220 10*3/uL Normal 150-450 [facility] Comment on above: Performed By: #### L 500.2500, L100.0100 #### [facility] [address] [place], [address] RBC (Bld) [#/Vol] 4.80 10*6/uL Normal 4.2-5.4 [facility] Comment on above: Performed By: #### L 500.2500, L100.0100 #### [facility] [address] [place], [address] RDW SD 41.6 fl Normal 35.1-43.9 [facility] Comment on above: Performed By: #### L 500.2500, L100.0100 #### [facility] [address] [place], [address] WBC (Bld) [#/Vol] 13.6 10*3/uL High 4.4-11.0 [facility] Comment on above: Performed By: #### L 500.2500, L100.0100 #### [facility] [address] [place], [address] CTA Chest W/WO Contraston CTA Chest W/WO Contrast [facility] Imaging Services [address] [place] [address] CTA Chest W/WO Contrast MR#: [id number] Acct: [id number] Name: ARLET NAVARRO Rep #: [id number] : 1985 F 39 From: Jero Garber MD PCP: Dr. Ian Mon MD Status: [facility] ER Study: CTA Chest W/WO Contrast Date of Exam: 10/24/24 Exam# [id number] Ordering Dr: Bo Jordan DO PROCEDURE: CTA CHEST W/WO CONTRAST REASON FOR EXAM: Follow-up RSV, hypoxic. TECHNIQUE: CTA imaging of the chest with intravenous contrast. 3D reconstructions. COMPARISON: Same day radiograph. FINDINGS: Limited evaluation due to motion. Hardware: None. Lymph nodes: Enlarged/prominent mediastinal and bilateral perihilar lymph nodes. Heart: Normal heart size. No pericardial effusion. RV/LV Diameter Ratio: N/A Thoracic Aorta: No thoracic aortic aneurysm or dissection. Pulmonary Vessels: Nondiagnostic examination for pulmonary emboli due to motion artifact. Most Proximal Level of Embolus (if embolus present): N/A Lungs and Airways: The lungs are normally expanded and clear. Pleura: No pleural effusion. No pneumothorax. Upper Abdomen: Visualized portions of the upper abdominal viscera are unremarkable. Bones: Sternal step-off is favored to represent motion artifact. CT/CTA Chest W/WO Contrast IMPRESSION: Nondiagnostic examination for pulmonary emboli due to motion artifact. Mediastinal and perihilar lymphadenopathy which may be reactive to infection. Adenopathy may represent the hilar prominence visualized on same radiograph. Correlate with clinical history. One or more dose reduction techniques were used (e.g., Automated exposure control, adjustment of the mA and/or kV according to patient size, use of iterative reconstruction technique). Reading Location: [facility] CC: Dr. Bo Jordan DO; Dr. Ian Mon MD Surveying Crew Stake Runner: Signed Normal [facility] Chest PA and Lateralon 10-24 Chest PA and Lateral [facility] Imaging Services [address] [place] [address]21 Chest PA and Lateral MR#: [id number] Acct: [id number] Name: ARLET NAVARRO Rep #: [id number] : 1985 F 39 From: Jero Garber MD PCP: Dr. Ian Mon MD Status: REG ER Study: Chest PA and Lateral Date of Exam: 10/24/24 Exam# [id number] Ordering Dr: Bo Jordan DO PROCEDURE: CHEST PA AND LATERAL REASON FOR EXAM: Shortness of breath; diagnosed with flu and RSV. TECHNIQUE: Frontal and lateral views of the chest. COMPARISON: None. FINDINGS: The heart size is normal. The mediastinal contour is unremarkable. Nonspecific hilar prominence which may represent viral illness or vascular congestion. The bones are unremarkable. RAD/Chest PA and Lateral IMPRESSION: Nonspecific hilar prominence which may represent viral illness or vascular congestion. Reading Location: [facility] CC: Dr. Bo Jordan DO; Dr. Ian Mon MD Surveying Crew Stake Runner: Signed Normal [facility] D-Dimer Quantitative (DVT/PE )on 10-24-2024 D-DIMER QUANT 0.58 FEU/ug/m Invalid Interpretation Code 0.27-0.49 [facility] Comment on above: Result Comment: D-Di megan ELEVATED (>0.49): Additional studies and clinical assessments are indicated to conclude diagnosis of: Deep Vein Thrombosis (DVT) or Pulmonary Embolism (PE) RESULTS CALLED TO BLANCA 10/24/24 Justo Najera. REPORT READ BACK BY . CESAR Performed By: #### L 500.2500, L100.0100 #### [facility] [address] [facility] [place], [place], [id number] D-dimer measurement for deep venous thrombosisOrdered By: Bo Jordan on 10-24-2024 D-Dimer Quantitative (PE/DVT) 0.58 FEU/ug/m High 0.27-0.49 [facility] Comment on above: D-Dimer ELEVATED (>0 .49): Additional studies and clinicalassessments are indicated to conclude diagnosis of:Deep Vein Thrombosis (DVT) or Pulmonary Embolism (PE)RESULTS CALLED TO BLANCA 10/24/24 [facility]REPORT READ BACK BY . CESAR Emergency Department Summary on 10-24-2024 Emergency Department Summary [facility] Medical Records Department [address] [place] [address] Emergency Department Summary 10/24/24 MR#: [id number] Acct: [id number] Name: ARLET NAVARRO Rep #: [id number] : 1985 39 From: Bo Jordan DO PCP: Dr. Ian Mon MD Status:ADM IN Location: [facility] [id number] HPI History of Present Illness Chief Complaint: Shortness of Breath Narrative Narrative: Chief complaint and HPI: Shortness of breath and flulike symptoms. 39-year-old female with no significant past medical history other than previous tobacco abuse presents for evaluation of shortness of breath and flulike symptoms. History taken by patient as well as medical record. Patient states that she recently was diagnosed with RSV infection by an urgent care. She was seen in our emergency department on 10/12 for her symptoms and was diagnosed with RSV bronchiolitis. Was ultimately discharged home. Patient states that her symptoms improved but then it reoccurred 2 days ago. She states there is multiple people at her work with influenza. She states she was tested 2 days ago and negative for influenza. Patient endorses cough, shortness of breath, body aches, fever, nausea, vomiting, and diarrhea. She states she has had decreased p.o. intake secondary to symptoms. States she has been trying to keep up with fluids but has not had any real solid food. Patient states while walking to the bathroom today she felt lightheaded and had a witnessed syncopal episode. Did not hit her head. Denies any injury from the syncopal episode. Patient states that she went to urgent care for her emesis and diarrhea. She states that her pulse ox was 89% so she was sent to the emergency department. She denies any chest pain, abdominal pain, dysuria. Review of systems: See HPI Medications: As listed on the chart Allergies: As listed on the chart PFSH: Per chart Vital signs: As listed on the chart. Reviewed. Physical exam: Gen: A O x3, NAD Head: Normocephalic, atraumatic Eyes: No sclera icterus, conjunctiva clear, PERRL, EOMI ENT: Mildly dry mucous membranes, posterior oropharynx unremarkable, uvula midline, tonsils not enlarged, no tonsillar exudates Neck: Trachea midline, No JVD, Full ROM, No meningismus CV: tachycardia, no murmurs, no peripheral edema Resp: Lungs diminished in the bilateral bases, mild expiratory wheeze GI: Abd soft, non-distended, non-tender, no r/r/g Musc: Full ROM, no deformity Skin: Warm, dry, no rash Neuro: Alert, oriented, grossly intact, sensation intact Psych: Cooperative, appropriate mood and affect [facility] Medical History History of recurrent UTI (urinary tract infection) Allergic rhinitis Former tobacco use Kidney stones Home Medications ???Medication ???Instructions ???Recorded ???Last Taken ???Type omeprazole 40 mg capsule,delayed 40 mg PO DAILY gerd 12/09/2110/23 History release albuterol sulfate 90 mcg/actuation 1 - 2 puff inhalation Q4H PRN TN N 04/04/23 10/24/24 Rx aerosol inhaler (Ventolin HFA) Wheezing #1 device loratadine 10 mg tablet (Allergy 10 mg PO DAILY allergy 10/24/24 History Relief (loratadine)) melatonin 5 mg capsule 5 mg PO QHS sleep 10/24/24 5 History Allergy/AdvReac Type Severity Reaction Status Date / Time hydrocodone bitartrate (From Allergy Hives Verified 10/24/24 15:48 [place]) Family History Other Heart disease Surgical History History of umbilical hernia repair History of carpal tunnel surgery History of hysterectomy Social History household members: none Smoking Status: Former smoker alcohol intake: current alcohol intake frequency: other substance use type: does not use EXAM Physical Exam Const Vital Signs: 10/24/24 15:46 10/24/24 16:19 10/24/24 16:48 Temperature 97.1 F L 97.7 F L Temperature Source Oral Oral Pulse Rate 110 H 112 H Respiratory Rate 22 H 20 H Respiratory Effort Respiratory Pattern Blood Pressure 121/99 H 110/69 Blood Pressure Mean 106 82 Pulse Ox 95 92 Oxygen Delivery Method Room Air Room Air Room Air 10/24/24 16:55 10/24/24 16:59 10/24/24 17:00 Temperature Temperature Source Pulse Rate 108 H Respiratory Rate 23 H Respiratory Effort Non-Labored Respiratory Pattern Blood Pressure 110/73 Blood Pressure Mean 81 Pulse Ox 91 92 Oxygen Delivery Method Room Air 10/24/24 17:15 10/24/24 17:30 10/24/24 17:45 Temperature Temperature Source Pulse Rate 108 H 106 H Respiratory Rate 22 H 25 H Respiratory Effort Respiratory Pattern (more content not included)... Normal [facility] H AND P Exam - [facility] 10-24-2024 H&P Exam - Hospitalist [facility] Medical Records Department [address] [place] [address] H P Exam - Hospitalist 10/24/241954 MR#: [id number] Acct: [id number] Name: ARLET NAVARRO Rep #: [id number] : 1985 39 From: Claudette Cooney MD PCP: Dr. Ian Mon MD Status:ADM IN Location: [facility] [id number] HPI - General General Date of Admission: 10/24/24 Date of Service: 10/24/24 Chief Complaint: Worsening fatigue, malaise, cough, dyspnea, N/V/D, hypoxia at evaluation. HPI Narrative The patient is a 39-year-old female with past medical history of tobacco use, history of nephrolithiasis, GERD who presents to the [facility] ED on 10/24/2024 with history of flulike symptoms and dyspnea following recent diagnosis of RSV infection by urgent care with ED evaluation 10/12/2024 secondary to her symptoms with diagnosis of RSV bronchiolitis at that time ultimately discharged to home however her symptoms despite this have continued although some improvement until 2 days previous with ongoing cough, dyspnea, body aches, intermittent fevers, nausea, emesis and diarrhea with decreased oral intake a result with repeat testing including influenza which was negative with several ill individuals at her work with onset today lightheadedness and dizziness while in the bathroom with a syncopal event with no head trauma with urgent care evaluation with pulse oximeter at that time noted to be 89% prompting referral to the ED. She denies any recent chest pain or abdominal pain with the symptoms. Workup in the ED included T97.1, heart rate 110, BP 121/99, respiratory rate 22, 95% on room air at 1546, patient was ambulated and did drop to 87% on RA with most recent repeat vitals at 1938 T97.4, heart rate 101, BP 127/86, respiratory rate 21, 90% on room air, CBC with WBC 13.6, he 1 15.7, platelet 228 with left shift, D-dimer 0.58, BMP with chloride 110, BUN/creat 13/0.52, GFR 141, troponin less than 3, chest x-ray with nonspecific hilar prominence possibly viral illness or vascular congestion, chest CTA nondiagnostic for pulmonary emboli due to motion artifact, mediastinal and perihilar lymphadenopathy possibly reactive to infection similar to visualized component on radiograph, rapid SARS COVID/influenza/RSV negative, EKG with sinus tachycardia with no acute evidence of ischemia. In the ED patient administered 1 L normal saline, Tylenol 1000 mg p.o. x 1, albuterol x 2, DuoNeb x 1, Zofran 4 mg IV x 1. [facility] Medical History History of recurrent UTI (urinary tract infection) Allergic rhinitis Former tobacco use Kidney stones Home Medications ???Medication ???Instructions ???Recorded ???Last Taken ???Type omeprazole 40 mg capsule,delayed 40 mg PO DAILY gerd 12/09/2110/23 History release albuterol sulfate 90 mcg/actuation 1 - 2 puff inhalation Q4H PRN TN N 04/04/23 10/24/24 Rx aerosol inhaler (Ventolin HFA) Wheezing #1 device loratadine 10 mg tablet (Allergy 10 mg PO DAILY allergy 10/24/24 History Relief (loratadine)) melatonin 5 mg capsule 5 mg PO QHS sleep 10/24/24 5 History Allergy/AdvReac Type Severity Reaction Status Date / Time hydrocodone bitartrate (From Allergy Hives Verified 10/24/24 15:48 [place]) Family History (Updated 10/25/24 @ 01:[address] Claudette Cooney MD) Mother COPD (chronic obstructive pulmonary disease) Lung cancer other (Patient does not know her paternal family history nor her father's history.) Surgical History History of umbilical hernia repair History of carpal tunnel surgery History of hysterectomy Social History (Updated 10/25/24 @ 01:[address] Claudette Cooney MD) household members: children Smoking Status: Former smoker how long ago did patient quit smoking: Quit 1 year prior to 10/24/24 evaluation, smoked 1 ppd since teen. alcohol intake: never substance use type: does not use ROS ROS Narrative Admission Review of Systems: CONSTITUTIONAL: No weight loss, + fever, chills, weakness or fatigue. HEENT: + Lightheadedness/dizzi ness with syncopal event, congestion, rhinorrhea. Eyes: No visual loss, blurred vision, double vision or yellow sclerae. Ears, Nose, Throat: No hearing loss, sneezing. SKIN: No rash or itching, lesions, wounds. CARDIOVASCULAR: + Lightheadedness/dizzi ness, syncopal event. No chest pain, chest pressure or chest discomfort, palpitations, edema, orthopnea. RESPIRATORY: + Dyspnea, cough, intermittent wheezing. No hemoptysis. GASTROINTESTINAL: + Anorexia, decreased appetite, nausea, vomiting or diarrhea. No abdominal pain, melena, BRBPR. GENITOURINARY: No dysuria, frequency, urgency or retention. NEUROLOGICAL: + Dizziness, headache, syncopal events. Paralysis, ataxia, numbness or tingling in the extre (more content not included)... Normal [facility] Influenza virus A and B and SARS-CoV-2 (COVID-19) and Respiratory syncytial virus RNAOrdered By: Bo Jordan on 10-24-2024 SARS-CoV-2 (COVID-19) RNA MADHAVI+probe Ql (Unsp spec) [facility] L. pneumophila Ag Ql (U)Orde red By: Claudette Cooney on 10-24-2024 Legionella Antigen [facility] L501.4020on 10-24-2024 TROPONIN-I HS < 3 Low 3.0-54.0 [facility] Comment on above: Order Comment: 'TROP ' Serial specimen #1, #2 or #3: 1 Result Comment: Plecelestina castellanos Note: New Test Units and Gender Specific Reference Ranges. For more information see Policy Stat Procedure [place] High Sensitivity Troponin (TNIH) and attachments. Performed By: #### L 500.2500, L100.0100 #### [facility] [address] [place], [address] Legionella Antigen Urineon 0 10-24-2024 LEGU URINE, CLEAN CATCH Legionella Antigen result interpretation: L pneumo Ag Ur Ql Negative Presumptive negative for Legionella pneumophila serogroup 1 antigen in urine, suggesting no recent or current infection. Legionella Ag, Urine Negative (See interpretation below) Normal [facility] Comment on above: Performed By: #### L 500.2500, L100.0100 #### [facility] [address] [place], [address] M100.678on 10-24-2024 M100.678 Pending SARS-CoV-2 (COVID 19) Negative INFLUENZA A Negative INFLUENZA B Negative RSV PCR Negative Normal [facility] Comment on above: Performed By: #### L 500.2500, L100.0100 #### [facility] [address] [place], [address] Procalcitoninon 10-24-2024 Procalcitonin 0.14 ng/mL High 0.00-0.09 [facility] Comment on above: Result Comment: A procalcitonin (PCT) level above 2.0 ng/mL on the first day of ICU admission is associated with a high risk for progression to severe sepsis and/or septic shock. A PCT level below 0.5 ng/mL on the first day of ICU admission is associated with a low risk for progression to severe and/or septic shock. Note: Concentrations <0.5 ng/mL do not exclude an infection on account of localized infections (without systemic signs) which can be associated with such low concentrations, or a systemic infection in its initial stages (<6 hours). Furthermore, increased procalcitonin can occur without infection. PCT concentrations between 0.5 and 2.0 ng/mL should be interpreted taking into account the patient's history. It is recommended to retest PCT within 6-24 hours if any concentrations <2 ng/mL are obtained. Performed By: #### L 500.2500, L100.0100 #### [facility] [address] [place], [address] Procalcitonin [Mass/Vol]Orde red By: [facility] 10-24-2024 Procalcitonin 0.14 ng/mL High 0.00-0.09 [facility] Comment on above: A procalcitonin (PCT ) level above 2.0 ng/mL on the first day of ICU admission is associated with a high risk for progression to severe sepsis and/or septic shock. A PCT level below 0.5 ng/mL on the first day of ICU admission is associated with a low risk for progression to severe and/or septic shock. Note: Concentrations <0.5 ng/mL do not exclude an infection on account of localized infections (without systemic signs) which can be associated with such low concentrations, or a systemic infection in its initial stages (<6 hours). Furthermore, increased procalcitonin can occur without infection. PCT concentrations between 0.5 and 2.0 ng/mL should be interpreted taking into account the patient's history. It is recommended to retest PCT within 6-24 hours if any concentrations <2 ng/mL are obtained. Respiratory pathogens DNA an d RNA panel MADHAVI+probe (Resp)Ordered By: [facility] 10-24-2024 Respiratory Panel (PCR) [facility] Respiratory pathogens detect ion panel by molecular detection methodOrdered By: [facility] 10-24-2024 Respiratory pathogens DNA and RNA panel MADHAVI+probe (Resp) [facility] Serum procalcitonin measurem entOrdered By: [facility] 10-24-2024 Procalcitonin [Mass/Vol] 0.14 ng/mL High 0.00-0.09 [facility] Comment on above: A procalcitonin (PCT ) level above 2.0 ng/mL on the first day of ICU admission is associated with a high risk for progression to severe sepsis and/or septic shock. A PCT level below 0.5 ng/mL on the first day of ICU admission is associated with a low risk for progression to severe and/or septic shock. Note: Concentrations <0.5 ng/mL do not exclude an infection on account of localized infections (without systemic signs) which can be associated with such low concentrations, or a systemic infection in its initial stages (<6 hours). Furthermore, increased procalcitonin can occur without infection. PCT concentrations between 0.5 and 2.0 ng/mL should be interpreted taking into account the patient's history. It is recommended to retest PCT within 6-24 hours if any concentrations <2 ng/mL are obtained. Strep pneumoniae Antig(UR,CS F)on 10-24-2024 STPAG URINE INTERPRETATION Strep pneumoniae Antig(UR,CSF) Negative Urine Presumptive negative for pneumococcal pneumonia, suggesting no current or recent pneumococcal infection. Infection due to S pneumoniae cannot be ruled out since the antigen present in the sample may be below the detection limit of the test. Strep pneumo Test Negative URINE (See interpretation below) Normal [facility] Comment on above: Performed By: #### L 500.2500, L100.0100 #### [facility] Laboratory [address] [place], [address] Streptococcus pneumoniae ant igen assayOrdered By: Claudette Cooney on 10-24-2024 Streptococcus pneumoniae Antigen (M [facility] Troponin IOrdered By: Bo Jordan on 10-24-2024 Troponin I < 3 pg/mL Low 3.0-54.0 [facility] Comment on above: Please Note: New [place]agan t Units and Gender Specific Reference Ranges. For more information see Policy Stat Procedure [place] High Sensitivity Troponin (TNIH) and attachments. Troponin I High Sensitivity < 3 pg/mL Low 3.0-54.0 [facility] Comment on above: Please Note: New [place]agan t Units and Gender Specific Reference Ranges. For more information see Policy Stat Procedure [place] High Sensitivity Troponin (TNIH) and attachments. Urine Legionella pneumophila antigen detectionOrdered By: Claudette Cooney on 10-24-2024 L. pneumophila Ag Ql (U) [facility] CNOVon 10-22-2024 CNOV Office Visit (UCWSTR ) ARLET NAVARRO ([id number]) 1985 F Date Time Provider Department 10/22/24 7:45 PM TIERNEY MCCLURE [facility] During your visit today, we recorded the following information about you: Temperature Pulse Respiration Blood pressure 100.7 degrees 116/minute 20/minute 118/70 Weight 92.2 kg Tierney Mcclure APRN.CNP 10/22/2024 8:20 PM Signed CC: Patient presents with: Nasal Congestion: diarrhea and vomiting x 1 day HPI: Arlet Navarro is a 39 year old female who presents to the office with complaint of head congestion and cough, nonproductive for the past day. Symptoms are staying the same. Associated symptoms includes vomiting and diarrhea. Denies ear pain, wheezing, and dyspnea. Treatments tried include nothing so far. with no relief of symptoms. Sick contacts: flu a. History of asthma, frequent episodes of bronchitis, chronic bronchitis, bronchiectasis or COPD: No Smoker: yes Seasonal/environmenta l allergies: No The ROS is otherwise negative. The patient's pmh, medications, allergies, and past visits are reviewed. PHYSICAL EXAM: BP 118/70 Pulse 116 Temp (!) 38.2 ?C (100.7 ?F) Resp 20 Wt 92.2 kg (203 lb 4.2 oz) SpO2 94% BMI 43.99 kg/m? General appearance: alert, cooperative, pleasant, in [...] without rales or wheeze, good air exchange PAST MEDICAL HISTORY Diagnosis Date Arthritis Kidney stones Nocturnal hypoxia ZOFIA (obstructive sleep apnea) Umbilical hernia 2014 PAST SURGICAL HISTORY Procedure Laterality Date HYSTERECTOMY HX 2012 has left ovary LAP UMBILICAL HERNIA REPAIR 2014 NEUROPLASTY AND/TRANSPOSITION ULNAR NERVE ELBOW Right 01/18/2024 REPAIR UMBILICAL HERNIA 07/12/2024 REVISE MEDIAN N/CARPAL TUNNEL SURG Right 01/18/2024 ALLERGIES [place] [Hydrocodone-Acetamin ophen] MEDICATIONS omeprazole (PRILOSEC) 40 mg capsule Take 1 capsule by mouth once daily. loratadine (CLARITIN) 10 mg tablet Take 1 tablet by mouth once daily. naproxen (NAPROSYN) 500 mg tablet TWICE DAILY NEEDED melatonin 3 mg tablet Take 3 mg by mouth once daily. oseltamivir (TAMIFLU) 75 mg capsule Take 1 capsule by mouth two times a day for 5 days. albuterol HFA (PROAIR HFA) 90 mcg/actuation inhaler Inhale 2 Puffs as instructed every 6 hours as needed. (Patient not taking: Reported on 10/10/2024) FAMILY HISTORY Problem Relation Age of Onset Breast Cancer Mother Hypertension Mother Heart Mother other (ms) Mother Fibromyalgia Mother No Known Problems Father Diabetes Sister No Known Problems Brother other (MS) Maternal Grandmother Breast Cancer Maternal Grandmother Heart Maternal Grandmother other (hTN) Maternal Grandmother No Known Problems Maternal Grandfather No Known Problems Paternal Grandmother No Known Problems Paternal Grandfather Anesthesia Problems No Family History Social History Tobacco Use Smoking status: Former Current packs/day: 0.50 Average packs/day: 0.5 packs/day for 17.0 years (8.5 ttl pk-yrs) Types: Cigarettes Smokeless tobacco: Never Vaping Use Vaping status: Never Used Substance Use Topics Alcohol use: No Drug use: No ASSESSMENT/PLAN: 1. URI, acute - ICD9: 465.9, ICD10: J06.9 - OSELTAMIVIR 75 MG CAPSULE - COVID AND INFLUENZA A/B AND RSV PCR, ROUTINE If she is negative for flu please have her stop the tamiflu no kidney issues. Prescription instructions reviewed with patient as applicable. Potential red flag symptoms discussed with the patient. Reviewed appropriate action plan to take if red flag symptoms occur. Patient agreeable to treatment plan. Tierney Mcclure APRN.CARDIAC REHABILITATION PROGRAM DIRECTOR Allergies As of Date: 10/22/2024 Noted Allergy Reaction [place] (HYDROCODONE-ACETAMIN OPHEN) 06/15/2017 4 - Hives 7 - Swelling Date Reviewed: 10/22/2024 Reviewed by: Dorothy Alvarez MA - Fully Assessed Reason for Visit: Nasal Congestion [235] Cmt: diarrhea and vomiting x 1 day Primary Visit Diagnosis:URI, acute [J06.9] Order(s):oseltamivir (TAMIFLU) 75 mg capsuleTake 1 capsule by mouth two times a day for 5 days.Disp: 10 capsuleRfl: 0 COVID AND INFLUENZA A/B AND RSV PCR, ROUTINE [SQCVFLRS] Order #: [id number]. #:[id number] Prescriptions as of 10/22/2024 - oseltamivir (TAMIFLU) 75 mg capsule Take 1 capsule by mouth two times a day for 5 days. - omeprazole (PRILOSEC) 40 mg capsule Take 1 capsule by mouth once daily. - loratadine (CLARITIN) 10 mg tablet (more content not included)... Normal [facility] COVID AND INFLUENZA A/B AND RSV PCR, ROUTINEon 10-22-2024 SARS-CoV-2 (COVID-19) RNA MADHAVI+probe Ql (Unsp spec) SARS-COV-2 (AGENT OF COVID-19) RNA: Not detected INFLUENZA A RNA: Not detected INFLUENZA B RNA: Not detected RESPIRATORY SYNCYTIAL VIRUS (RSV) RNA: Not detected Normal [facility] Comment on above: Performed By: #### C VFLRS ####[facility] LABCLIA [id number] [address] 12 Lead EKGon 10-12-2024 12 Lead EKG [facility] Cardiovascular Services [address] [place] [address] 12 Lead EKG 10/12/24 1803 MR#: [id number] Acct: [id number] Name: ARLET NAVARRO Rep #: [id number] : 1985 39 From: Dae Nicolas MD Attending Dr: Status: DEP ER Ordering Dr: Jason Chopra DO Date: 10/12/24 Location: ED Sex: F C Admitted: Test Reason : SOB Blood Pressure : */* mmHG Vent. Rate : 96 BPM Atrial Rate : 96 BPM P-R Int : 132 ms QRS Dur : 68 ms QT Int : 362 ms P-R-T Axes : 54 60 72 degrees QTcB Int : 457 ms Normal sinus rhythm Normal ECG Confirmed by PATRICK LARES, KRYSTYNA ([id number]), newspaper editor BOUCHRA PALAFOX ([id number]) on 10/16/2024 6:08:53 AM Referred By: Confirmed By: KRYSTYNA NICOLAS MD 10/16/24 0608 Date Dae Nicolas MD CC: Dr. Ian Mon MD; Dr. Jason Chopra, DO Signed Normal [facility] Absolute neutrophil countOrd ered By: Jason Chopra on 10-12-2024 Neutrophils (Bld) [#/Vol] 6.7 10*3/uL 2.0-7.7 [facility] Basic Metabolic Profile (BMP )on 10-12-2024 BUN/CRE 22.8 RATIO High 10-20 [facility] Comment on above: Order Comment: 'TROP ' Serial specimen #1, #2 or #3: 1 Performed By: #### L 500.2500, L100.0100 #### [facility] Laboratory [address] [place], [address] CA,Total 9.1 mg/dL Normal 8.5-10.1 [facility] Comment on above: Order Comment: 'TROP ' Serial specimen #1, #2 or #3: 1 Performed By: #### L 500.2500, L100.0100 #### [facility] Laboratory [address] [place], [address] Chloride [Moles/Vol] 110 mmol/L High 98-107 [facility] Comment on above: Order Comment: 'TROP ' Serial specimen #1, #2 or #3: 1 Performed By: #### L 500.2500, L100.0100 #### [facility] Laboratory [address] [place], [address] CO2 [Moles/Vol] 26.0 mmol/L Normal 21.0-32.0 [facility] Comment on above: Order Comment: 'TROP ' Serial specimen #1, #2 or #3: 1 Performed By: #### L 500.2500, L100.0100 #### [facility] Laboratory [address] [place], [address] Creatinine [Mass/Vol] 0.57 mg/dL Normal 0.55-1.02 [facility] Comment on above: Order Comment: 'TROP ' Serial specimen #1, #2 or #3: 1 Result Comment: The validity of the calculated GFR GFRAA in patients over 70 years has not been determined. Clinical correlation is essential. Performed By: #### L 500.2500, L100.0100 #### [facility] Laboratory [address] [place], [address] ECRCL 126.02 ml/min Normal [facility] Comment on above: Order Comment: 'TROP ' Serial specimen #1, #2 or #3: 1 Performed By: #### L 500.2500, L100.0100 #### [facility] Laboratory [address] [place], [address] EST GFR - AA 153 mL/min Normal >60 [facility] Comment on above: Order Comment: 'TROP ' Serial specimen #1, #2 or #3: 1 Result Comment: Afri can [place] GFR Calc Performed By: #### L 500.2500, L100.0100 #### [facility] Laboratory [address] [place], [address] GAP 6 Normal 5-15 [facility] Comment on above: Order Comment: 'TROP ' Serial specimen #1, #2 or #3: 1 Performed By: #### L 500.2500, L100.0100 #### [facility] Laboratory [address] [place], [address] GFR/1.73 sq M.predicted among non-blacks MDRD (S/P/Bld) [Vol rate/Area] 126 mL/min/{1.73_m2} Normal >60 [facility] Comment on above: Order Comment: 'TROP ' Serial specimen #1, #2 or #3: 1 Result Comment: Non- GFR Calc Performed By: #### L 500.2500, L100.0100 #### [facility] Laboratory [address] [place], [address] Glucose [Mass/Vol] 101 mg/dL Normal 74-106 [facility] Comment on above: Order Comment: 'TROP ' Serial specimen #1, #2 or #3: 1 Result Comment: Fast ing Glucose result from 100 to 125 mg/dL suggests IMPAIRED HOMEOSTASIS per A.D.A. criteria. Performed By: #### L 500.2500, L100.0100 #### [facility] Laboratory [address] [place], [address] Potassium [Moles/Vol] 3.9 mmol/L Normal 3.5-5.1 [facility] Comment on above: Order Comment: 'TROP ' Serial specimen #1, #2 or #3: 1 Performed By: #### L 500.2500, L100.0100 #### [facility] Laboratory [address] [place], [address] Sodium [Moles/Vol] 142 mmol/L Normal 136-145 [facility] Comment on above: Order Comment: 'TROP ' Serial specimen #1, #2 or #3: 1 Performed By: #### L 500.2500, L100.0100 #### [facility] Laboratory [address] [place], [address] Urea nitrogen [Mass/Vol] 13 mg/dL Normal 7-18 [facility] Comment on above: Order Comment: 'TROP ' Serial specimen #1, #2 or #3: 1 Performed By: #### L 500.2500, L100.0100 #### [facility] Laboratory [address] [place], [address] Basophil percentageOrdered B y: Jason Chopra on 10-12-2024 Basophils/100 WBC (Bld) 0.7 % 0-1 [facility] Blood urea nitrogen (BUN)/cr eatinine ratioOrdered By: Jason Chopra on 10-12-2024 Urea nitrogen/Creatinine [Mass ratio] 22.8 mg/mg High 10-20 [facility] CBC W/Diff, Automatedon - Absolute Lymph 2.57 X10 3/uL Normal 0.83-4.51 [facility] Comment on above: Performed By: #### L 500.2500, L100.0100 #### [facility] Laboratory [address] [place], [address] Absolute Neut 6.7 X10 3/uL Normal 2.0-7.7 [facility] Comment on above: Performed By: #### L 500.2500, L100.0100 #### [facility] Laboratory [address] [place], [address] Basophils/100 WBC (Bld) 0.7 % Normal 0-1 [facility] Comment on above: Performed By: #### L 500.2500, L100.0100 #### [facility] Laboratory [address] [place], [address] Eosinophils/100 WBC (Bld) 4.9 % Normal 0-5 [facility] Comment on above: Performed By: #### L 500.2500, L100.0100 #### [facility] Laboratory [address] [place], [address] Erythrocyte distribution width (RBC) [Ratio] 12.2 % Normal 11.6-14.6 [facility] Comment on above: Performed By: #### L 500.2500, L100.0100 #### [facility] Laboratory [address] [place], [address] Hematocrit (Bld) [Volume fraction] 43.4 % Normal 37-47 [facility] Comment on above: Performed By: #### L 500.2500, L100.0100 #### [facility] Laboratory [address] [place], [address] Hemoglobin (Bld) [Mass/Vol] 14.3 g/dL Normal 12.0-15.0 [facility] Comment on above: Performed By: #### L 500.2500, L100.0100 #### [facility] Laboratory [address] [place], [address] IG% 0.300 Normal 0.0-0.9 [facility] Comment on above: Result Comment: IG% - Immature Granulocytes (promyelocytes, myelocytes and metamyelocytes) > 1% indicates that a LEFT SHIFT is Present. Performed By: #### L 500.2500, L100.0100 #### [facility] Laboratory [address] [place], [address] Lymphocytes/100 WBC (Bld) 23.9 % Normal 19-41 [facility] Comment on above: Performed By: #### L 500.2500, L100.0100 #### [facility] Laboratory [address] [place], [address] MCH (RBC) [Entitic mass] 28.4 pg Normal 27.0-32.0 [facility] Comment on above: Performed By: #### L 500.2500, L100.0100 #### [facility] Laboratory [address] [place], [address] MCHC (RBC) [Mass/Vol] 32.9 g/dL Normal 32-36 [facility] Comment on above: Performed By: #### L 500.2500, L100.0100 #### [facility] Laboratory [address] [place], [address] MCV (RBC) [Entitic vol] 86.3 fL Normal 81-99 [facility] Comment on above: Performed By: #### L 500.2500, L100.0100 #### [facility] Laboratory [address] [place], [address] Monocytes/100 WBC (Bld) 7.7 % Normal 0-10 [facility] Comment on above: Performed By: #### L 500.2500, L100.0100 #### [facility] Laboratory [address] [place], [address] Neutrophils/100 WBC (Bld) 62.5 % Normal 47-70 [facility] Comment on above: Performed By: #### L 500.2500, L100.0100 #### [facility] Laboratory [address] [place], [address] Nucleated RBC (Bld) [#/Vol] 0 10*3/uL Normal 0-5 [facility] Comment on above: Performed By: #### L 500.2500, L100.0100 #### [facility] Laboratory [address] [place], [address] Platelet mean volume (Bld) [Entitic vol] 10.2 fL Normal 6.2-12.0 [facility] Comment on above: Performed By: #### L 500.2500, L100.0100 #### [facility] Laboratory [address] [place], [address] Platelets (Bld) [#/Vol] 249 10*3/uL Normal 150-450 [facility] Comment on above: Performed By: #### L 500.2500, L100.0100 #### [facility] Laboratory [address] [place], [address] RBC (Bld) [#/Vol] 5.03 10*6/uL Normal 4.2-5.4 [facility] Comment on above: Performed By: #### L 500.2500, L100.0100 #### [facility] Laboratory [address] [place], [address] RDW SD 38.4 fl Normal 35.1-43.9 [facility] Comment on above: Performed By: #### L 500.2500, L100.0100 #### [facility] Laboratory [address] [place], [address] WBC (Bld) [#/Vol] 10.8 10*3/uL Normal 4.4-11.0 [facility] Comment on above: Performed By: #### L 500.2500, L100.0100 #### [facility] Laboratory [address], [address] Carbon dioxide measurementOr dered By: Jason Chopra on 10-12-2024 CO2 [Moles/Vol] 26.0 mmol/L 21.0-32.0 [facility] Chest 1 View (Portable)on Chest 1 View (Portable) [facility] Imaging Services [address] [place] [address] Chest 1 View (Portable) MR#: [id number] Acct: [id number] Name: ARLET NAVARRO Rep #: [id number] : 1985 F 39 From: Shaniqua richardson MD PCP: Dr. Ian Mon MD Status: REG ER Study: Chest 1 View (Portable) Date of Exam: 10/12/24 Exam# [id number] Ordering Dr: Jasno Chopra DO [id number] INDICATION: SOB EXAMINATION/TECHNIQUE : X-RAY - XR Chest 1 View COMPARISON: None. FINDINGS: The lungs are clear. The cardiomediastinal silhouette is unremarkable. No pleural effusion or pneumothorax. No acute osseous abnormalities. RAD/Chest 1 View (Portable) IMPRESSION: No acute radiographic abnormalities. Electronically Signed: Shaniqua Lama MD at 18:45 EST , CC: Dr. Ian Mon MD; Dr. Jason Chopra DO Surveying Crew Stake Runner: Signed Normal [facility] Chloride measurementOrdered By: Jason Chopra on 10-12-2024 Chloride [Moles/Vol] 110 mmol/L High 98-107 [facility] Emergency Department Summary on 10-12-2024 Emergency Department Summary [facility] Medical Records Department [address] [place] [address] Emergency Department Summary 10/12/24 MR#: [id number] Acct: [id number] Name: ARLET NAVARRO Rep #: [id number] : 1985 39 From: Jason Chopra DO PCP: Dr. Ian Mon MD Status:DEP ER Location: ED HPI History of Present Illness Chief Complaint: General Illness [facility] Medical History Pneumonia Kidney disease Kidney stones Smoker Wheezes Home Medications ???Medication ???Instructions ???Recorded ???Last Taken ???Type omeprazole 40 mg capsule,delayed 40 mg PO DAILY 12/09/21 Unknown History release azelastine 137 mcg (0.1 %) nasal 2 spray intranasal BID #30 mL 10/23/22 Unknown Rx spray doxycycline monohydrate 100 mg 100 mg PO BID #20 CAPSULES 10/23/22 Unknown Rx capsule promethazine 6.25 mg-codeine 10 5 ml PO 4X/DAY PRN PRN cough 7 10/23/22 Unknown Rx mg/5 mL syrup days #140 mL albuterol sulfate 90 mcg/actuation 1 - 2 puff inhalation Q4H PRN PRN 04/04/23 Unknown Rx aerosol inhaler (Ventolin HFA) Wheezing #1 device albuterol sulfate 90 mcg/actuation 1 - 2 puff inhalation Q4H PRN PRN 06/01/23 Unknown Rx aerosol inhaler (Ventolin HFA) Wheezing #8.5 grams prednisone 50 mg tablet 50 mg PO DAILY #5 tabs 06/01/23 Unknown Rx oxycodone-acetaminoph en 5 mg-325 1 tab PO Q8H PRN pain 3 days #10 08/06/23 Unknown Rx mg tablet (Percocet) tabs albuterol sulfate 90 mcg/actuation 2 puff inhalation Q4H PRN PRN 10/03/23 Unknown Rx aerosol inhaler (Ventolin HFA) Wheezing ##1 prednisone 20 mg tablet 60 mg (3 x 20 mg) PO DAILY #12 10/03/23 Unknown Rx TABLETS cephalexin 500 mg capsule 500 mg PO TID #21 CAPSULES 10/10/23 Unknown Rx naproxen 500 mg tablet 500 mg PO BID PRN #20 tabs 12/17/23 Unknown Rx albuterol sulfate 90 mcg/actuation 2 puff inhalation Q4H PRN PRN 10/12/24 Unknown Rx aerosol inhaler (Ventolin HFA) Wheezing 7 days #1 ea prednisone 50 mg tablet 50 mg PO DAILY 5 days #5 tabs 10/12/24 Unknown Rx Allergy/AdvReac Type Severity Reaction Status Date / Time hydrocodone bitartrate (From Allergy Hives Verified 10/12/24 17:46 [place]) Family History Other Heart disease Surgical History History of hysterectomy Social History household members: none Smoking Status: Current every day smoker tobacco type: cigarettes alcohol intake: current alcohol intake frequency: other substance use type: does not use EXAM Physical Exam Const Vital Signs: 10/12/24 17:09 10/12/24 17:43 10/12/24 18:03 Temperature 97.6 F L Temperature Source Temporal Pulse Rate 120 H 82 Respiratory Rate 28 H 17 Respiratory Effort Short of Breath Respiratory Pattern Normal Normal Blood Pressure 138/65 H Blood Pressure Mean 89 Pulse Ox 94 Oxygen Delivery Method Room Air 10/12/24 18:11 10/12/24 19:47 10/12/24 20:48 Temperature 97.9 F 98.0 F Temperature Source Oral Pulse Rate 100 90 97 Respiratory Rate 20 H 18 16 Respiratory Effort Respiratory Pattern Blood Pressure 109/76 129/78 H 142/78 H Blood Pressure Mean 87 95 99 Pulse Ox 92 97 99 Oxygen Delivery Method Room Air Room Air MDM MDM MDM Narrative Medical decision making narrative: HISTORY OF PRESENT ILLNESS: 39-year-old female notes increased shortness of breath cough and bodyaches. Notes she is RSV positive. She further states symptoms have gotten worse with more shortness of breath and cough. Also notes body aches. Patient denies chest pain. Denies leg swelling. Denies syncope The patient denies recent surgery in the last 4 weeks or immobilization in the last 3 days, denies previous diagnosis of DVT or PE, hemoptysis, unilateral leg swelling or malignancy with treatment the last 6 months or palliative. No estrogen use noted. REVIEW OF SYSTEMS: Pertinent positives: Shortness of breath, cough Pertinent negatives: Vomiting, syncope PHYSICAL EXAM: Nursing triage notes reviewed, Vital signs reviewed Constitutional: please see mdm HENT: MMM Eyes: Pupils equal round and reactive to light, Extraocular muscles intact Neck: No stridor, no JVD, full neck ROM Lungs: Clear to auscultation, bilateral wheezing noted. no increased work of breathing, no conversational dyspnea, no accessory muscle use, no nasal flaring. No respiratory distress noted Heart: Regular rate and rhythm, No murmurs, No rubs and No gallops, 2+ distal pulses (radial, femoral, posterior tibial) in all extremities Abdomen: Soft, there is no tenderness, rigidity, rebound or guarding, no obvious peritoneal signs, no pa (more content not included)... Normal [facility] Eosinophil percentageOrdered By: Jason Chopra on 10-12-2024 Eosinophils/100 WBC (Bld) 4.9 % 0-5 [facility] Erythrocyte distribution wid th (RBC) [Ratio]Ordered By: Jason Chopra on 10-12-2024 Erythrocyte distribution width (RBC) [Entitic vol] 38.4 fL 35.1-43.9 [facility] Erythrocyte distribution wid th ratioOrdered By: Jason Chopra on 10-12-2024 Erythrocyte distribution width (RBC) [Ratio] 12.2 % 11.6-14.6 [facility] Estimated glomerular filtrat ion rate (GFR) AmericanOrdered By: Jason Chopra on 10-12-2024 Estimated GFR (MDRD) Amer 153 mL/min >60 [facility] Comment on above: GFR Calc Estimation of creatinine mich aranceOrdered By: Jason Chopra on 10-12-2024 Estimated Creatinine Clearance Calc 126.02 ml/min [facility] Glomerular filtration rate ( GFR) estimationOrdered By: Jason Chopra on 10-12-2024 Estimated GFR (MDRD) Non-Af Amer 126 mL/min >60 [facility] Comment on above: Non- GFR Calc Glucose measurementOrdered B y: Jason Chopra on 10-12-2024 Glucose [Mass/Vol] 101 mg/dL 74-106 [facility] Comment on above: Fasting Glucose resu lt from 100 to 125 mg/dL suggests IMPAIRED HOMEOSTASIS per A.D.A. criteria. Hematocrit Auto (Bld) [Volum e fraction]Ordered By: Jason Chopra on 10-12-2024 Hematocrit (Bld) [Volume fraction] 43.4 % 37-47 [facility] Hemoglobin measurementOrdere d By: Jason Chopra on 10-12-2024 Hemoglobin (Bld) [Mass/Vol] 14.3 g/dL 12.0-15.0 [facility] Immature granulocytes/100 WB C Auto (Bld)Ordered By: Jason Chopra on 10-12-2024 Immature granulocytes/100 WBC (Bld) 0.300 % 0.0-0.9 [facility] Comment on above: IG% - Immature Granu locytes (promyelocytes, myelocytes and metamyelocytes) > 1% indicates that a LEFT SHIFT is Present. L501.4020on 10-12-2024 TROPONIN-I HS 4 pg/mL Normal 3.0-54.0 [facility] Comment on above: Order Comment: 'TROP ' Serial specimen #1, #2 or #3: 1 Result Comment: Plea se Note: New Test Units and Gender Specific Reference Ranges. For more information see Policy Stat Procedure [place] High Sensitivity Troponin (TNIH) and attachments. Performed By: #### L 500.2500, L100.0100 #### [facility] Laboratory [address] [place], [address] Lymphocytes Auto (Unsp spec) [#/Vol]Ordered By: Jason Chopra on 10-12-2024 Lymphocytes (Bld) [#/Vol] 2.57 10*3/uL 0.83-4.51 [facility] Lymphocytes/100 WBC Auto (Un sp spec)Ordered By: Jason Chopra on 10-12-2024 Lymphocytes/100 WBC (Bld) 23.9 % 19-41 [facility] MCV (mean corpuscular volume ) determinationOrdered By: Jason Chopra on 10-12-2024 MCV (RBC) [Entitic vol] 86.3 fL 81-99 [facility] Mean corpuscular hemoglobin (MCH) determinationOrdered By: Jason Chopra on 10-12-2024 MCH (RBC) [Entitic mass] 28.4 pg 27.0-32.0 [facility] Mean corpuscular hemoglobin concentration (MCHC) determinationOrdered By: Jason Chopra on 10-12-2024 MCHC (RBC) [Mass/Vol] 32.9 g/dL 32-36 [facility] Mean platelet volume determi nationOrdered By: Jason Chopra on 10-12-2024 Platelet mean volume (Bld) [Entitic vol] 10.2 fL 6.2-12.0 [facility] Monocyte percentageOrdered B y: Jason Chopra on 10-12-2024 Monocytes/100 WBC (Bld) 7.7 % 0-10 [facility] Neutrophil percentageOrdered By: Jason Chopra on 10-12-2024 Neutrophils/100 WBC (Bld) 62.5 % 47-70 [facility] Nucleated red blood cell per centageOrdered By: Jason Chopra on 10-12-2024 Nucleated RBC/100 WBC (Bld) [Ratio] 0 % 0-5 [facility] Platelet countOrdered By: Sandie Chopra on 10-12-2024 Platelets (Bld) [#/Vol] 249 10*3/uL 150-450 [facility] Potassium measurementOrdered By: Jason Chopra on 10-12-2024 Potassium [Moles/Vol] 3.9 mmol/L 3.5-5.1 [facility] RBC Auto (Bld) [#/Vol]Ordere d By: Jason Chopra on 10-12-2024 RBC (Bld) [#/Vol] 5.03 10*6/uL 4.2-5.4 [facility] Serum anion gap measurementO rdered By: Jason Chopra on 10-12-2024 Anion gap [Moles/Vol] 6 mmol/L 5-15 [facility] Serum or plasma calcium viola urement (mass/volume)Ordered By: Jason Chopra on 10-12-2024 Calcium [Mass/Vol] 9.1 mg/dL 8.5-10.1 [facility] Serum or plasma creatinine m easurement (mass/volume)Ordered By: Jason Chopra on 10-12-2024 Creatinine [Mass/Vol] 0.57 mg/dL 0.55-1.02 [facility] Comment on above: The validity of the calculated GFR & GFRAA in patients over 70 years has not been determined. Clinical correlation is essential. Serum or plasma urea nitroge n measurement (mass/volume)Ordered By: Jason Chopra on 10-12-2024 Urea nitrogen [Mass/Vol] 13 mg/dL 7-18 [facility] Sodium levelOrdered By: Camilla Chopra on 10-12-2024 Sodium [Moles/Vol] 142 mmol/L 136-145 [facility] Troponin IOrdered By: Jason Chopra on 10-12-2024 Troponin I High Sensitivity 4 pg/mL 3.0-54.0 [facility] Comment on above: Please Note: New Meagan t Units and Gender Specific Reference Ranges. For more information see Policy Stat Procedure [place] High Sensitivity Troponin (TNIH) and attachments. White blood cell (WBC) count Ordered By: Jason Chopra on 10-12-2024 WBC (Bld) [#/Vol] 10.8 10*3/uL 4.4-11.0 [facility] CNOVon 10-10-2024 CNOV Office Visit (UCWSTR ) ARLET NAVARRO ([id number]) 1985 F Date Time Provider Department 10/10/24 4:15 PM TIERNEY MCCLURE [facility] During your visit today, we recorded the following information about you: Temperature Pulse Respiration Blood pressure 96.6 degrees 110/minute 21/minute 108/84 Weight 81.8 kg Tierney Mcclure APRN.CNP 10/10/2024 5:19 PM Signed CC: Patient presents with: Cough: CAPUTO, chest congestion x 3 days HPI: Arlet Navarro is a 39 year old female who presents to the office with complaint of chest congestion and cough, productive for a few days. Symptoms are staying the same. Associated symptoms includes sore throat and headache. Denies fever, nausea, vomiting , and diarrhea. Treatments tried include nothing so far. with no relief of symptoms. Sick contacts: unknown. History of asthma, frequent episodes of bronchitis, chronic bronchitis, bronchiectasis or COPD: No Smoker: No Seasonal/environmenta l allergies: No The ROS is otherwise negative. The patient's pmh, medications, allergies, and past visits are reviewed. PHYSICAL EXAM: BP 108/84 Pulse 110 Temp (!) 35.9 ?C (96.6 ?F) Resp 21 Wt 81.8 kg (180 lb 5.4 oz) SpO2 96% BMI 39.02 kg/m? General appearance: alert, cooperative, pleasant, in no acute distress Head: Normocephalic Eyes: EOM's intact, conjunctiva pink and moist, no icterus, sclera white, non-injected Ears: Right ear: External ear/canal- Normal, TM - clear with good landmarks. Left ear: External ear/canal- Normal, TM - clear with good landmarks Oropharynx:moderate erythema, without exudates present Heart: Negative. RRR without obvious murmur, gallop, or rubs. No ectopy. Lungs: clear to auscultation, without rales or wheeze, good air exchange PAST MEDICAL HISTORY Diagnosis Date Arthritis Kidney stones Nocturnal hypoxia ZOFIA (obstructive sleep apnea) Umbilical hernia 2013 PAST SURGICAL HISTORY Procedure Laterality Date HYSTERECTOMY HX 2012 has left ovary LAP UMBILICAL HERNIA REPAIR 2014 NEUROPLASTY AND/TRANSPOSITION ULNAR NERVE ELBOW Right 01/18/2024 REPAIR UMBILICAL HERNIA 07/12/2024 REVISE MEDIAN N/CARPAL TUNNEL SURG Right 01/18/2024 ALLERGIES [place] [Hydrocodone-Acetamin ophen] MEDICATIONS omeprazole (PRILOSEC) 40 mg capsule Take 1 capsule by mouth once daily. loratadine (CLARITIN) 10 mg tablet Take 1 tablet by mouth once daily. naproxen (NAPROSYN) 500 mg tablet TWICE DAILY NEEDED melatonin 3 mg tablet Take 3 mg by mouth once daily. albuterol HFA (PROAIR HFA) 90 mcg/actuation inhaler Inhale 2 Puffs as instructed every 6 hours as needed. (Patient not taking: Reported on 10/10/2024) FAMILY HISTORY Problem Relation Age of Onset Breast Cancer Mother Hypertension Mother Heart Mother other (ms) Mother Fibromyalgia Mother No Known Problems Father Diabetes Sister No Known Problems Brother other (MS) Maternal Grandmother Breast Cancer Maternal Grandmother Heart Maternal Grandmother other (hTN) Maternal Grandmother No Known Problems Maternal Grandfather No Known Problems Paternal Grandmother No Known Problems Paternal Grandfather Anesthesia Problems No Family History Social History Tobacco Use Smoking status: Former Current packs/day: 0.50 Average packs/day: 0.5 packs/day for 17.0 years (8.5 ttl pk-yrs) Types: Cigarettes Smokeless tobacco: Never Vaping Use Vaping status: Never Used Substance Use Topics Alcohol use: No Drug use: No ASSESSMENT/PLAN: 1. Sore throat - ICD9: 462, ICD10: J02.9 (primary diagnosis) - STREP A MOLECULAR (POC) - neg 2. URI, acute - ICD9: 465.9, ICD10: J06.9 - COVID AND INFLUENZA A/B AND RSV PCR, ROUTINE 3. Acute cough - ICD9: 786.2, ICD10: R05.1 - XR CHEST 2V FRONTAL/LAT * * * * Physician Interpretation * * * * EXAMINATION: CHEST RADIOGRAPH (2 VIEW FRONTAL AND LATERAL) PATIENT/TECHNOLOGIST PROVIDED HISTORY: COUGH, CONGESTION, CHEST DISCOMFORT X 4 DAYS CLINICAL HISTORY: 39 years old Female with Acute cough EXAM DATE/TIME: 10/10/2024 5:10 PM COMPARISON: Chest radiograph 06/26/2021 RESULT: Lines, tubes, and devices: None. Lungs and pleura: No consolidation. No pleural effusion. No pneumothorax. Cardiomediastinal silhouette: Normal cardiomediastinal silhouette. Bones and soft tissues: Unremarkable. IMPRESSION IMPRESSION: No acute radiographic abnormality. Surveying Crew Stake Runner: JIM Transcribe Date/Time: Oct 10 2024 5:10P Dictated by : EMILY WOLFE, Otc meds for symptoms.. Potential red flag symptoms discussed with the patient. Reviewed appropriate action plan to take if red flag symptoms occur. Patient agreeable to treatment plan. Tierney Mcclure APRN.CARDIAC REHABILITATION PROGRAM DIRECTOR Allergies As of Date: 10/10/2024 Noted Allergy Reaction NORCO (HYDROCODONE-ACETAMIN OPHEN) 06/15/2017 4 - Hives 7 - Swelling Date Reviewed: 10/10/2024 Reviewed by: Caty Palma, (more content not included)... Normal [facility] COVID AND INFLUENZA A/B AND RSV PCR, ROUTINEon 10-10-2024 SARS-CoV-2 (COVID-19) RNA MADHAVI+probe Ql (Unsp spec) SARS-COV-2 (AGENT OF COVID-19) RNA: Not detected INFLUENZA A RNA: Not detected INFLUENZA B RNA: Not detected RESPIRATORY SYNCYTIAL VIRUS (RSV) RNA: Detected Abnormal [facility] Comment on above: Performed By: #### C VFLRS ####[facility] LABCLIA [id number] [address] [place] STREP A MOLECULAR (POC)on Procedural Control Valid [facility] Strep A (POCT) Negative Negative [facility] XR CHEST 2V FRONTAL/LATon XR CHEST 2V FRONTAL/LAT * * *Final Repor t* * * DATE OF EXAM: Oct 10 2024 5:10PM WOX [id number] - XR CHEST 2V FRONTAL/LAT / PROCEDURE REASON: Acute cough * * * * Physician Interpretation * * * * EXAMINATION: CHEST RADIOGRAPH (2 VIEW FRONTAL and LATERAL) PATIENT/TECHNOLOGIST PROVIDED HISTORY: COUGH, CONGESTION, CHEST DISCOMFORT X 4 DAYS CLINICAL HISTORY: 39 years old Female with Acute cough EXAM DATE/TIME: 10/10/2024 5:10 PM COMPARISON: Chest radiograph 06/26/2021 RESULT: Lines, tubes, and devices: None. Lungs and pleura: No consolidation. No pleural effusion. No pneumothorax. Cardiomediastinal silhouette: Normal cardiomediastinal silhouette. Bones and soft tissues: Unremarkable. IMPRESSION: No acute radiographic abnormality. Surveying Crew Stake Runner: [employer] Transcribe Date/Time: Oct 10 2024 5:10P Dictated by : EMILY WOLFE DO This examination was interpreted and the report reviewed and electronically signed by: EMILY WOLFE DO on Oct 10 2024 5:12PM EST [id number] Normal [facility] XR Chest PA and Lateralon IMPRESSION: No acute radiographic abnormality. Surveying Crew Stake Runner: PSCB Transcribe Date/Time: Oct 10 2024 5:10P Dictated by : EMIYL WOLFE DO This examination was interpreted and the report reviewed and electronically signed by: EMILY WOLFE DO on Oct 10 2024 5:12PM EST DIVISION OF RADIOLOGY * * *Final Report* * * DATE OF EXAM: Oct 10 2024 5:10PM WOX [id number] - XR CHEST 2V FRONTAL/LAT / PROCEDURE REASON: Acute cough * * * * Physician Interpretation * * * * EXAMINATION: CHEST RADIOGRAPH (2 VIEW FRONTAL & LATERAL) PATIENT/TECHNOLOGIST PROVIDED HISTORY: COUGH, CONGESTION, CHEST DISCOMFORT X 4 DAYS CLINICAL HISTORY: 39 years old Female with Acute cough EXAM DATE/TIME: 10/10/2024 5:10 PM COMPARISON: Chest radiograph 06/26/2021 RESULT: Lines, tubes, and devices: None. Lungs and pleura: No consolidation. No pleural effusion. No pneumothorax. Cardiomediastinal silhouette: Normal cardiomediastinal silhouette. Bones and soft tissues: Unremarkable. DIVISION OF RADIOLOGY Provider, [facility] - 10/10/2024 * * *Final Report* * * DATE OF EXAM: Oct 10 2024 5:10PM WOX [id number] - XR CHEST 2V FRONTAL/LAT / PROCEDURE REASON: Acute cough * * * * Physician Interpretation * * * * EXAMINATION: CHEST RADIOGRAPH (2 VIEW FRONTAL & LATERAL) PATIENT/TECHNOLOGIST PROVIDED HISTORY: COUGH, CONGESTION, CHEST DISCOMFORT X 4 DAYS CLINICAL HISTORY: 39 years old Female with Acute cough EXAM DATE/TIME: 10/10/2024 5:10 PM COMPARISON: Chest radiograph 06/26/2021 RESULT: Lines, tubes, and devices: None. Lungs and pleura: No consolidation. No pleural effusion. No pneumothorax. Cardiomediastinal silhouette: Normal cardiomediastinal silhouette. Bones and soft tissues: Unremarkable. IMPRESSION IMPRESSION: No acute radiographic abnormality. Surveying Crew Stake Runner: JIM Transcribe Date/Time: Oct 10 2024 5:10P Dictated by : EMILY WOLFE DO This examination was interpreted and the report reviewed and electronically signed by: EMILY WOLFE DO on Oct 10 2024 5:12PM EST [facility] Radiology Study observation (narrative) Lambert Augustin XR Chest PA and LateralOrder ed By: [facility] Provider on 10-10-2024 [facility] Emergency Department Summary on 09-28-2024 Emergency Department Summary [facility] Medical Records Department [address] [place] [address] Emergency Department Summary 09/28/24 MR#: [id number] Acct: [id number] Name: ARLET NAVARRO Rep #: [id number] : 1985 39 From: Rufus Miramontes MD PCP: Dr. Ian Mon MD Status:DEP ER Location: ED HPI HPI - Fall History of Present Illness Chief Complaint: Fall Narrative Narrative: 39-year-old female slipped on icy steps today landing on her mid back. She was able to get up and is ambulatory but presents due to thoracic back pain. She states she got new gym shoes and is slipped a total of 4 times this week on the ice. She denies ever hitting her head or losing consciousness. She states her neck feels stiff with movement but she denies hitting her neck. She has no pain in her upper or lower extremities. She is not on blood thinners [facility] Medical History Pneumonia Kidney disease Kidney stones Smoker Wheezes Home Medications ???Medication ???Instructions ???Recorded ???Last Taken ???Type omeprazole 40 mg capsule,delayed 40 mg PO DAILY 12/09/21 Unknown History release azelastine 137 mcg (0.1 %) nasal 2 spray intranasal BID #30 mL 10/23/22 Unknown Rx spray doxycycline monohydrate 100 mg 100 mg PO BID #20 CAPSULES 10/23/22 Unknown Rx capsule promethazine 6.25 mg-codeine 10 5 ml PO 4X/DAY PRN PRN cough 7 10/23/22 Unknown Rx mg/5 mL syrup days #140 mL albuterol sulfate 90 mcg/actuation 1 - 2 puff inhalation Q4H PRN PRN 04/04/23 Unknown Rx aerosol inhaler (Ventolin HFA) Wheezing #1 device albuterol sulfate 90 mcg/actuation 1 - 2 puff inhalation Q4H PRN PRN 06/01/23 Unknown Rx aerosol inhaler (Ventolin HFA) Wheezing #8.5 grams prednisone 50 mg tablet 50 mg PO DAILY #5 tabs 06/01/23 Unknown Rx oxycodone-acetaminoph en 5 mg-325 1 tab PO Q8H PRN pain 3 days #10 08/06/23 Unknown Rx mg tablet (Percocet) tabs albuterol sulfate 90 mcg/actuation 2 puff inhalation Q4H PRN PRN 10/03/23 Unknown Rx aerosol inhaler (Ventolin HFA) Wheezing ##1 prednisone 20 mg tablet 60 mg (3 x 20 mg) PO DAILY #12 10/03/23 Unknown Rx TABLETS cephalexin 500 mg capsule 500 mg PO TID #21 CAPSULES 10/10/23 Unknown Rx naproxen 500 mg tablet 500 mg PO BID PRN #20 tabs 12/17/23 Unknown Rx Allergy/AdvReac Type Severity Reaction Status Date / Time hydrocodone bitartrate (From Allergy Hives Verified 09/28/24 12:10 [place]) Family History Other Heart disease Surgical History History of hysterectomy Social History household members: none Smoking Status: Current every day smoker tobacco type: cigarettes alcohol intake: current alcohol intake frequency: other substance use type: does not use ROS ROS ED ROS Narrative CVS: Negative for chest pain. Respiratory: Negative for shortness of breath. GI: Negative for abdominal pain, nausea, vomiting. Neuro: Negative for headache. Musc: Negative for joint pain, swelling, trauma. EXAM Physical Exam Narrative Exam Narrative: CONST: Patient sitting in no acute distress. EYES: Normal inspection. HEAD: Normocephalic atraumatic, no raccoon eyes or Lenz sign, no nasal septal hematoma or epistaxis, no hemotympanum, no CSF otorrhea or rhinorrhea. NECK: Normal inspection. No midline tenderness or step-offs. Tender over right trapezius. RESP: No respiratory distress, CTAB. Chest wall nontender. CVS: Regular rate and rhythm, no murmur, no gallop. ABD: Soft and nontender, no guarding or rebound.. Back: Normal inspection with no signs of external trauma. Tender diffusely over thoracic spine without step-offs. No tenderness of cervical or lumbar spine. No crepitus. SKIN: Color normal, no rash, warm, dry, intact. EXTREMITIES: Normal appearance, full range of motion upper and lower extremities without tenderness, 2+ radial DP pulses. NEURO: Alert and answering questions appropriately. PSYCH: Normal affect. Const Vital Signs: 09/28/24 12:10 09/28/24 12:16 Temperature 97 F L Temperature Source Temporal Pulse Rate 94 Respiratory Rate 15 Respiratory Effort Normal Non-Labored Respiratory Depth Normal Respiratory Pattern Normal Blood Pressure 134/85 H Blood Pressure Mean 101 Pulse Ox 100 Oxygen Delivery Method Room Air Physical Exam Const Vital Signs: 09/28/24 12:10 09/28/24 12:16 Temperature 97 F L Temperature Source Temporal Pulse Rate 94 Respiratory Rate 15 Respiratory Effort Normal Non-Labored Respiratory Depth Normal Respiratory Pattern Normal Blood Pressure 134/85 H Blood Pressure Me (more content not included)... Normal [facility] Thoracic Spine 3 Viewson Thoracic Spine 3 Views [facility] Services [address] [place] [address] [id number] Thoracic Spine 3 Views MR#: [id number] Acct: [id number] Name: ARLET NAVARRO Rep #: [id number] : 1985 F 39 From: Rachele steele MD PCP: Dr. Ian Mon MD Status: PRE ER Study: Thoracic Spine 3 Views Date of Exam: 09/28/24 Exam# [id number] Ordering Dr: Swati Goldberg [id number] HISTORY: pain after fall. TECHNIQUE: XR Spine Thoracic 3 Views. COMPARISON: None. FINDINGS: VERTEBRAE: Vertebral body heights maintained. No acute fracture identified. Small T11 vertebral body bone island incidentally noted. ALIGNMENT: No significant anterior or posterior subluxation. INTERVERTEBRAL DISCS: Preservation of intervertebral disc spaces. SOFT TISSUES: Unremarkable paraspinal soft tissues. RAD/Thoracic Spine 3 Views IMPRESSION: No acute fracture or dislocation identified in the thoracic spine. Electronically Signed: Rachele Fernandez MD at 12:56 EST Reading Location ID and State: [facility] / [place] Tel , Service support , CC: Dr. Ian Mon MD; MENDY Gallegso Surveying Crew Stake Runner: Signed Normal [facility] CNOVon 07-26-2024 CNOV Office Visit (GENSWS ) ARLET NAVARRO ([id number]) 1985 F Date Time Provider Department 07/26/24 1:30 PM ELENA ALLEN GENTUAN During your visit today, we recorded the following information about you: Elena Allen APRN.CNP 07/26/2024 2:24 PM Signed SUBJECTIVE: Arlet Navarro presents for follow up of her umbilical hernia repair WITHOUT mesh. On 07/12/24 she underwent a hernia repair, tolerated the procedure well and was discharged home. Patient complaints: pain. Describes this as a 5/10. Isn't taking the narcotic prescribed. Using only tylenol in the morning or before bed -Cheyanne states that within 1 week of her surgery she had to walk across town because her car broke down and feels she did too much and this has aggravated her pain. -She states she feels bloated at the end of the day -she has been scrubbing her carpets d/t her animals urinating on it while she was recovering from surgery She denies drainage, redness around wound, difficulty voiding, and constipation. OBJECTIVE: There were no vitals taken for this visit. General Appearance: Well developed, No acute distress Abdomen: Abdomen soft, non-distended. Incision: no drainage, no erythema, no swelling, no ecchymosis, and mild tenderness over entire abdomen with palpation, no bulges IMPRESSION: Post op course: Normal PLAN: Post-op patient instructions were reviewed with the patient. We discussed taking it easy and not over doing it. Cheyanne is going to a [employer], I advised against this as there is a risk of being bumped into and not having somewhere to sit down. She assures me she will be able to sit if needed. I have explained to Ms. Navarro that she may return to normal activity with the following restrictions: No heavy lifting, pushing, or pulling greater than 20 lbs for 6 weeks post-operatively. We discussed alternating tylenol and ibuprofen for better pain control and listening to her body when she is doing too much, ensuring enough rest time. I have encouraged her to contact me at any time with any questions or concerns that may arise. Follow up: MAJOR Allen APRN.CARDIAC REHABILITATION PROGRAM DIRECTOR Allergies As of Date: 07/26/2024 Noted Allergy Reaction NORCO (HYDROCODONE-ACETAMIN OPHEN) 06/15/2017 4 - Hives 7 - Swelling Date Reviewed: 07/26/2024 Reviewed by: Elena Allen APRN.CARDIAC REHABILITATION PROGRAM DIRECTOR - Fully Assessed Reason for Visit: Post Op Follow Up [3947] Cmt: Umbilical hernia repair 07/12/2024. Primary Visit Diagnosis:Recurrent ventral hernia [K43.2] Prescriptions as of 07/26/2024 - omeprazole (PRILOSEC) 40 mg capsule Take 1 capsule by mouth once daily. - loratadine (CLARITIN) 10 mg tablet Take 1 tablet by mouth once daily. - naproxen (NAPROSYN) 500 mg tablet TWICE DAILY NEEDED - albuterol HFA (PROAIR HFA) 90 mcg/actuation inhaler Inhale 2 Puffs as instructed every 6 hours as needed. - melatonin 3 mg tablet Take 3 mg by mouth once daily. Problem List As Of Date 07/26/2024 Noted Resolved ZOFIA (obstructive sleep apnea) [G47.33] GERD (gastroesophageal reflux disease) [K21.9] Class 2 obesity without serious comorbidity wit* Medications Discontinued During This Encounter Prescriptions - etodolac (LODINE) 400 mg tablet (Discontinued) Reported on 01/02/2024 - fluticasone (FLONASE) 50 mcg/actuation nasal spray (Discontinued) Reported on 01/30/2024 Letter Text Encounter Status:Closed by ELENA ALLEN on 07/26/24 Normal [facility] ANES POSTPROC EVALon 024 ANES POSTPROC EVAL HNO ID: [id number] Author: TINO SMITH MD Service: Anesthesiology Author Type: Physician Type: Anesthesia Postprocedure Evaluation Filed: 07/12/2024 13:08 Note Text: POST ANESTHESIA EVALUATION NOTE : 1985 Procedure Summary Date: 07/12/24 Room / Location: OR OR Anesthesia Start: 1205 Anesthesia Stop: Procedure: HERNIORRHAPHY VENTRAL RECURRENT REDUCIBLE LESS THAN 3cm (Abdomen) Diagnosis: Ventral hernia without obstruction or gangrene (Ventral hernia without obstruction or gangrene [K43.9]) Surgeons: Vivian Gray MD Responsible Provider: Tino Smith MD Anesthesia Type: general ASA Status: 3 Anesthesia Type: general Airway Type: LMA Last Vitals Vitals Value Taken Time BP 108/63 07/12/24 1305 Temp 97.1 07/12/24 1307 Pulse 89 07/12/24 1306 Resp 19 07/12/24 1306 SpO2 95 % 07/12/24 1306 Vitals shown include unfiled device data. Post Anesthesia Patient Status Patient Evaluation: bedside. Anticipated Disposition: phase 2 then home. Neurological Status: aware and responsive. Pulmonary Status: breathing comfortably on room air Airway Control: returned to baseline unsupported. Cardiovascular Status: stable. Pain Management: clinically adequate Postoperative Hydration: acceptable. Intraoperative Events: no significant anesthesia events Post Operative Nausea/Vomiting Status: no significant post operative nausea or vomiting Recommendation: continue current plan of care. Anesthesia Observations No Documentation SIGNATURE: Tino Smith MD PATIENT NAME: Arlet Navarro DATE: July 12, 2024 TIME: 1:07 PM CSN: [id number] [facility] ANES PRE-OPon 07-12-2024 ANES PRE-OP HNO ID: [id number] Author: TINO SMITH MD Service: Anesthesiology Author Type: Physician Type: Anesthesia Preprocedure Evaluation Filed: 07/12/2024 11:54 Note Text: ANESTHESIOLOGY DAY OF SURGERY NOTE : 1985 Procedure Information Date/Time: 07/12/24 1140 Procedure: HERNIORRHAPHY VENTRAL RECURRENT REDUCIBLE LESS THAN 3cm (Abdomen) Location: LD OR 01 / LD OR Surgeons: Vivian Gray MD Estimated body mass index is 37.91 kg/m? as calculated from the following: Height as of 01/18/24: 144.8 cm (4' 9). Weight as of 06/18/24: 79.5 kg (175 lb 3.2 oz). Most recent hematocrit and potassium results: Hematocrit 42.1 01/07/2023 Potassium 4.3 01/07/2023 Relevant Problems ANESTHESIA (+) ZOFIA (obstructive sleep apnea) GI (+) GERD (gastroesophageal reflux disease) PULMONARY (+) ZOFIA (obstructive sleep apnea) I - PHYSICAL EVALUATION AIRWAY Patient intubated: No. Tracheostomy tube not present Mallampati: III. TM distance: <3 FB. Neck ROM: full ROM without neurological symptoms. Mouth opening: adequate. Short neck: yes. Thick neck: yes Gonzalez present: no Microretrognathia/Ian ronagthia/Recessed Chin: No DENTAL Dental findings: teeth intact. Additional exam findings: yes. CARDIOVASCULAR Normal cardiovascular observations. PULMONARY Normal pulmonary observations. II - ANESTHESIA PLAN ASA Score: 3 Anesthetic Plan: general Airway type: LMA The patient is not a current smoker. NPO Status: adequate Beta Heath Monitoring Plan Monitoring plan: standard ASA. Post Procedure Analgesic Plan Postoperative analgesic plan: parenteral or oral opioids. Informed Consent Anesthetic risks, benefits, alternatives, personnel and consent discussed: yes. Patient / Responsible Democrat agrees to proceed: yes Patient / Surrogate agrees to blood products: Yes DNR status not reviewed with patient and/or family prior to surgery. Significant changes in the patient condition since the History and Physical, not otherwise documented in primary service progress note: no. Potential Anesthesia issues that may suggest increased risk of complications or contraindication to planned procedure: potential difficult intubation. Discussed the possibility of lip / dental damage: yes Vitals Value Taken Time BP 119/86 07/12/24 1037 Pulse 93 07/12/24 1037 Resp 21 07/12/24 1037 Temp 36.7 ?C (98.1 ?F) 07/12/24 1037 SpO2 98 % 07/12/24 1037 Facility-Administered Medications as of 07/12/2024 Medication Dose Route Frequency - lidocaine (PF) 10 mg/mL (1 %) 1-2 mg injection (XYLOCAINE) 0.1-0.2 mL INTRADERMAL PRN - NaCl 0.9% iv flush bag 20 mL INTRAVENOUS PRN - ceFAZolin 2 g in D5W 100 mL (ANCEF) 2 g INTRAVENOUS Pre-Op Once Outpatient Medications as of 07/12/2024 Medication Sig - naproxen (NAPROSYN) 500 mg tablet TWICE DAILY NEEDED - omeprazole (PRILOSEC) 40 mg capsule Take 1 capsule by mouth once daily. - loratadine (CLARITIN) 10 mg tablet Take 1 tablet by mouth once daily. - albuterol HFA (PROAIR HFA) 90 mcg/actuation inhaler Inhale 2 Puffs as instructed every 6 hours as needed. - fluticasone (FLONASE) 50 mcg/actuation nasal spray Use 2 Sprays in each nostril once daily. Rinse mouth after use. (Patient not taking: Reported on 01/30/2024) - etodolac (LODINE) 400 mg tablet Take 1 tablet by mouth twice daily. (Patient not taking: Reported on 01/02/2024) - melatonin 3 mg tablet Take 3 mg by mouth once daily. I have interviewed and examined the patient. I have reviewed the medical record and/or the pre-anesthesia evaluation, pertinent labs, and test results. This contains updated information obtained within 48 hours of Surgery/Procedure. SIGNATURE: Tino Smith MD PATIENT NAME: Arlet Navarro DATE: July 12, 2024 TIME: 11:42 AM CSN: [id number] [facility] BRIEF OP NOTon 07-12-2024 BRIEF OP NOT HNO ID: [id number] Author: VIVIAN GRAY MD Service: General Surgery Author Type: Physician Type: Brief Op Note Filed: 07/12/2024 12:54 Note Text: BRIEF OPERATIVE NOTE SURGERY DATE: 07/12/2024 Incision/Procedure Start Time: 12:21 Incision Close/Procedure End Time: 12:59 Surgeon(s)/Procedural ist(s) and Infantry Unit Leader(s): adi Procedures: Recurrent umbilical hernia repair Anesthesia: General Findings: small < 1 cm recurrent umbilical hernia Estimated Blood Loss: < 10 ml Specimens: None Complications: None Closure Technique: Primary Preop Diagnosis: recurrent umbilical hernia Postop Diagnosis: same Patient was accompanied to the next level of care by a licensed practitioner from the surgical team pending completion of this brief op note (or operative note) SIGNATURE: Vivian Gray MD PATIENT NAME: Arlet Navarro DATE: July 12, 2024 TIME: 12:53 PM Normal [facility] HISTORY PHYSICALon HISTORY PHYSICAL HNO ID: [id number] Author: VIVIAN GRAY MD Service: General Surgery Author Type: Physician Type: H&P Filed: 07/12/2024 10:24 Note Text: HISTORY AND PHYSICAL Arlet Navarro 1985 REFERRING PHYSICIAN: No ref. provider found CHIEF COMPLAINT: Consult (Umbilical Hernia) HPI: The patient is a 39 year old female presents with recurrent ventral hernia. She had previous umbilical hernia repair done 10 years ago. She denies obstructive gastrointestinal or urinary symptoms. She has had weight gain since surgery above - her BMI is 38 She quit cigarettes use 2 years ago. She denies chest pain, shortness of breath, abdominal pain, neurological symptoms. PAST MEDICAL HISTORY PAST MEDICAL HISTORY Diagnosis Date Arthritis Kidney stones Nocturnal hypoxia ZOFIA (obstructive sleep apnea) Umbilical hernia 2014 PAST SURGICAL HISTORY PAST SURGICAL HISTORY Procedure Laterality Date HYSTERECTOMY HX 2012 has left ovary LAP UMBILICAL HERNIA REPAIR 2014 NEUROPLASTY AND/TRANSPOSITION ULNAR NERVE ELBOW Right 01/18/2024 REVISE MEDIAN N/CARPAL TUNNEL SURG Right 01/18/2024 CURRENT MEDICATIONS Current Outpatient Medications Medication Sig omeprazole (PRILOSEC) 40 mg capsule Take 1 capsule by mouth once daily. loratadine (CLARITIN) 10 mg tablet Take 1 tablet by mouth once daily. melatonin 3 mg tablet Take 3 mg by mouth once daily. fluticasone (FLONASE) 50 mcg/actuation nasal spray Use 2 Sprays in each nostril once daily. Rinse mouth after use. (Patient not taking: Reported on 01/30/2024) albuterol HFA (PROAIR HFA) 90 mcg/actuation inhaler Inhale 2 Puffs as instructed every 6 hours as needed. (Patient not taking: Reported on 01/02/2024) etodolac (LODINE) 400 mg tablet Take 1 tablet by mouth twice daily. (Patient not taking: Reported on 01/02/2024) No current facility-administered medications for this visit. ALLERGIES: [place] [Hydrocodone-Acetamin ophen] PERSONAL HISTORY: SOCIAL HISTORY Social History Tobacco Use Smoking status: Former Current packs/day: 0.50 Average packs/day: 0.5 packs/day for 17.0 years (8.5 ttl pk-yrs) Types: Cigarettes Smokeless tobacco: Never Vaping Use Vaping status: Never Used Substance Use Topics Alcohol use: No Drug use: No FAMILY HISTORY FAMILY HISTORY Problem Relation Age of Onset Breast Cancer Mother Hypertension Mother Heart Mother other (ms) Mother Fibromyalgia Mother No Known Problems Father Diabetes Sister No Known Problems Brother other (MS) Maternal Grandmother Breast Cancer Maternal Grandmother Heart Maternal Grandmother other (hTN) Maternal Grandmother No Known Problems Maternal Grandfather No Known Problems Paternal Grandmother No Known Problems Paternal Grandfather Anesthesia Problems No Family History REVIEW OF SYSTEMS: Denies chest pain Denies shortness of breath PHYSICAL EXAMINATION: General: The patient is 39 year old female, well nourished, well hydrated in no acute distress. The patient is oriented to time, place, and person. VITALS: Blood pressure 127/85, pulse 95, temperature 36.2 ?C (97.2 ?F), temperature source Temporal, weight 79.5 kg (175 lb 3.2 oz), SpO2 97%. Body mass index is 37.91 kg/m?. Head: Normal cephalic, atraumatic Eyes: pupils are equally round, sclera are clear/anicteric Neck is supple with no tracheal deviation Cardiac: normal heart sounds, regular Respiratory: Normal respiratory excursion and pattern. Abdominal exam: soft obese and benign, rectus diastasis present, ventral hernia superior to umbilical dimple Extremities: no clubbing, cyanosis or edema. Neuro: non focal Psych: normal mood IMPRESSION: recurrent ventral hernia < 3 cm PLAN: I have discussed the above with the patient. I have offered ventral hernia repair. I have explained the procedure to the patient. To be done at [facility] I have counseled the patient as to the risks of the procedure, including but not limited to: infection, bleeding, injury to any blood vessels/nerves, scar tissue, injury to any intrabdominal organs, intraabdominal abscess/bleeding, hernias at incisional sites, wound infections, complications of anesthesia, etc. - the patient understands. The patient wishes to proceed. I have answered all questions to the patient?s satisfaction and the patient has no further questions. Normal [facility] OPERATIVE NOon 10-24-2024 OPERATIVE NO HNO ID: [id number] Author: VIVIAN GRAY MD Service: General Surgery Author Type: Physician Type: Operative Report Filed: 07/13/2024 07:41 Note Text: [facility] - Operative Report - ARLET Mendez : 1985 AGE: 39. SEX: F PATIENT TYPE: A HOSP SVC: [facility] LOCATION: [facility] ATTENDING PHYSICIAN: Vivian Gray MD CSN NUMBER: [id number] DATE OF SURGERY/PROCEDURE: 07/12/2024 INCISION/PROCEDURE START TIME: 1222 INCISION CLOSE/PROCEDURE END TIME: 1259 PREOPERATIVE DIAGNOSIS: Recurrent umbilical hernia. POSTOPERATIVE DIAGNOSIS: Recurrent umbilical hernia. SURGEON: Vivian Gray MD PUBLIC AFFAIRS SPECIALIST: No Additional Staff SURGERY/PROCEDURE: Repair of recurrent umbilical hernia. ANESTHESIA: General, LMA. LOCATION: [facility]. SPECIMENS: None. INDICATIONS: Arlet Navarro is a patient who presents with a recurrent umbilical hernia. She had undergone umbilical hernia repair approximately 10 years ago. She, therefore, presents for redo umbilical hernia. She has been counseled on the risks of procedure including, but not limited to infection, bleeding, injury to any blood vessels or nerves, injury to any intraabdominal organs, injury to any bowel or bladder, intraabdominal bleeding, intraabdominal abscess, recurrence of hernia, scar tissue, cosmetic deformity, etc. The patient understands and agrees to proceed. DESCRIPTION OF PROCEDURE: After informed consent was given, the patient was brought to the operating room. Appropriate time-out protocol was followed. She was placed in the supine position. She was then placed under general LMA anesthesia. The patient's abdomen was then prepped with sterile surgical skin preparation. Appropriate sterile surgical drapes were placed. The skin and subcutaneous tissues at the previous incision site were infiltrated with local anesthetic. An inferior semi-transverse skin incision was then made in the inferior to the umbilical dimple with a 15-blade scalpel. It was carried down to the subcutaneous tissue using electrocautery. Any hemorrhage was adequately controlled with electrocautery. The subcutaneous tissues were then from the fascia. The blunt dissection was then done to clear the fascia from the surrounding subcutaneous tissues. Any hemorrhage was adequately controlled with electrocautery. There was a small fascial defect that was noted, it was less than a centimeter. This was opened so that digital examination could be done to determine if there were any other fascial defects that were noted. Palpation of the fascia at least 3 cm surrounding this area was done and there were no further defects that were noted. The patient had pointed to the umbilical area as the site of the hernia in the preoperative area. The fascia was then reapproximated transversely using [id number]-[id number] 0 PDS suture. Once the closure was palpated, it was intact and had good strength. Hemostasis was carefully controlled with electrocautery. The subdermal tissues were then approximated with Vicryl suture in interrupted simple fashion. Skin incision was closed with 4-0 Monocryl in a running subcuticular fashion. Benzoin and Steri- Strips were used to reinforce the skin closure. Proper sterile dressings were applied. The patient tolerated the procedure well and was brought to the recovery room in stable condition. ESTIMATED BLOOD LOSS: Less than 10 mL. COMPLICATIONS: None. SPECIMEN: none Vivian Gray MD LW:[id number] /[id number] Normal [facility] NURSING PROGon 07-05-2024 NURSING PROG HNO ID: [id number] Author: BAILEY SIMEON RN Service: Nursing Author Type: Registered Nurse Type: Nursing Progress Note Filed: 07/05/2024 08:34 Note Text: Pre-Procedure Checklist Arlet Navarro [phone] (home) 1985 39 year old Height: 4'9 Weight: 175 There is no height or weight on file to calculate BMI. Allergies: [place] [Hydrocodone-* Hives, Swelling Procedure:HERNIORRHAP HY VENTRAL RECURRENT REDUCIBLE LESS THAN 3cm Date of Procedure: 07/12/2024 Smoke: No Alcohol: No Street Drugs: No Diabetic: No Insulin: No Problems with Anesthesia (Self or Family?) No Eddy Current Inspector: Na Saw electronics design engineer in the last 6 months? No Recent EKG/Cardiac Testing: No Chest pain in the last 6 months (<6 months cardiac clearance needed): No History of: Heart Attack/Stroke/Blood Clot?: NA Shortness of Breath: No Asthma: No Inhalers: Yes Any Outstanding Consults?: No If yes, list: Additional Notes: NPO after midnight; pt instructed to bring inhalers with her. Will call with times day before. [facility] ANES POSTPROC EVALon 024 ANES POSTPROC EVAL HNO ID: [id number] Author: AMILCAR LERMA MD Service: Anesthesiology Author Type: Anesthesiologist Type: Anesthesia Postprocedure Evaluation Filed: 01/18/2024 16:05 Note Text: POST ANESTHESIA EVALUATION NOTE : 1985 Procedure Summary Date: 01/18/24 Room / Location: [place] OR / [place] OR Anesthesia Start: 1351 Anesthesia Stop: 1503 Procedures: DECOMPRESSION NERVE ULNAR ELBOW (Right: Elbow) DECOMPRESSION NERVE MEDIAN CARPAL TUNNEL (Right: Wrist) Diagnosis: Ulnar neuropathy of right upper extremity Carpal tunnel syndrome on right (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]) (Carpal tunnel syndrome on right [G56.01]) Surgeons: Jose Bryant MD Responsible Provider: Amilcar Lerma MD Anesthesia Type: general ASA Status: 3 Anesthesia Type: general Airway Type: LMA Last Vitals Vitals Value Taken Time BP 122/72 01/18/24 1550 Temp 36.4 ?C (97.5 ?F) 01/18/24 1530 HR SpO2 70 01/18/24 1550 Resp 16 01/18/24 1550 SpO2 96 % 01/18/24 1550 Post Anesthesia Patient Status Patient Evaluation: PACU. PACU/ICU Patient Condition: stable. Anticipated Disposition: phase 2 then home. Neurological Status: aware and responsive. Pulmonary Status: breathing comfortably on room air Airway Control: returned to baseline unsupported. Cardiovascular Status: stable. Pain Management: clinically adequate - multimodal analgesia pain management approach Postoperative Hydration: acceptable. Intraoperative Events: no significant anesthesia events Recommendation: continue current plan of care. Anesthesia Observations No Documentation SIGNATURE: Amilcar Lerma MD PATIENT NAME: Arlet Navarro DATE: January 18, 2024 TIME: 4:05 PM CSN: [id number] [facility] ANES PRE-OPon 01-18-2024 ANES PRE-OP HNO ID: [id number] Author: AUSTYN RIBERA DO Service: Anesthesiology Author Type: Anesthesiologist Type: Anesthesia Preprocedure Evaluation Filed: 01/18/2024 10:53 Note Text: ANESTHESIOLOGY DAY OF SURGERY NOTE : 1985 Procedure Information Date/Time: 01/18/24 1148 Procedures: DECOMPRESSION NERVE ULNAR ELBOW (Right: Elbow) DECOMPRESSION NERVE MEDIAN CARPAL TUNNEL (Right: Wrist) Location: [place] OR03 / [place] Surgeons: Jose Bryant MD Estimated body mass index is 37 kg/m? as calculated from the following: Height as of this encounter: 144.8 cm (4' 9). Weight as of this encounter: 77.6 kg (171 lb). Most recent hematocrit and potassium results: Hematocrit 42.1 01/07/2023 Potassium 4.3 01/07/2023 Relevant Problems ANESTHESIA (+) ZOFIA (obstructive sleep apnea) GI (+) GERD (gastroesophageal reflux disease) PULMONARY (+) ZOFIA (obstructive sleep apnea) I - PHYSICAL EVALUATION AIRWAY Patient intubated: No. Tracheostomy tube not present Mallampati: II. TM distance: >3 FB. Neck ROM: full ROM without neurological symptoms. Mouth opening: adequate. Short neck: no. Thick neck: no DENTAL Dental findings: teeth intact. II - ANESTHESIA PLAN ASA Score: 3 Anesthetic Plan: general Airway type: LMA NPO Status: adequate Beta Heath Monitoring Plan Monitoring plan: standard ASA. Post Procedure Analgesic Plan Postoperative analgesic plan: parenteral or oral opioids, multimodal analgesia and per surgical service. Informed Consent Anesthetic risks, benefits, alternatives, personnel and consent discussed: yes. Patient / Responsible Democrat agrees to proceed: yes Patient / Surrogate agrees to blood products: Yes DNR status not reviewed with patient and/or family prior to surgery. Significant changes in the patient condition since the History and Physical, not otherwise documented in primary service progress note: no. Potential Anesthesia issues that may suggest increased risk of complications or contraindication to planned procedure: none. Discussed the possibility of lip / dental damage: yes Vitals Value Taken Time BP 125/71 01/18/24 1024 Pulse Resp 16 01/18/24 1024 Temp 36.5 ?C (97.7 ?F) 01/18/24 1024 SpO2 100 % 01/18/24 1024 Facility-Administered Medications as of 01/18/2024 Medication Dose Route Frequency - lidocaine (PF) 10 mg/mL (1 %) 1-2 mg injection (XYLOCAINE) 0.1-0.2 mL INTRADERMAL PRN - lactated ringers iv infusion 5-30 mL/hr INTRAVENOUS CONTINUOUS - NaCl 0.9% iv flush bag 20 mL INTRAVENOUS PRN - ceFAZolin iv piggyback 2 g in D5W (iso-osmotic) 100 mL (ANCEF) 2 g INTRAVENOUS Pre-Op Once Outpatient Medications as of 01/18/2024 Medication Sig - loratadine (CLARITIN) 10 mg tablet Take 1 tablet by mouth once daily. - fluticasone (FLONASE) 50 mcg/actuation nasal spray Use 2 Sprays in each nostril once daily. Rinse mouth after use. - melatonin 3 mg tablet Take 3 mg by mouth once daily. - omeprazole (PRILOSEC) 40 mg capsule Take 1 capsule by mouth once daily. - albuterol HFA (PROAIR HFA) 90 mcg/actuation inhaler Inhale 2 Puffs as instructed every 6 hours as needed. (Patient not taking: Reported on 01/02/2024) - etodolac (LODINE) 400 mg tablet Take 1 tablet by mouth twice daily. (Patient not taking: Reported on 01/02/2024) I have interviewed and examined the patient. I have reviewed the medical record and/or the pre-anesthesia evaluation, pertinent labs, and test results. This contains updated information obtained within 48 hours of Surgery/Procedure. SIGNATURE: Austyn Ribera DO PATIENT NAME: Arlet Navarro DATE: January 18, 2024 TIME: 10:52 AM CSN: [id number] [facility] OPERATIVE NOon 01-18-2024 OPERATIVE NO HNO ID: [id number] Author: JOSE BRYANT MD Service: Orthopaedic Surgery Author Type: Physician Type: Operative Report Filed: 01/18/2024 15:15 Note Text: OPERATIVE/PROCEDURE REPORT LOG ID: [id number] SURGERY/PROCEDURE DATE: 01/18/2024 INCISION/PROCEDURE START TIME: 2:12 PM INCISION CLOSE/PROCEDURE END TIME: 2:50 PM SURGEON(S)/PROCEDURAL IST(S) AND PUBLIC AFFAIRS SPECIALIST(S): Surgeon(s) and Role: * Jose Bryant MD - Primary Physician Infantry Unit Leader: Shantel Wynn PA-C SURGERY/PROCEDURE(S): 1. Right ulnar nerve decompression at the elbow, in situ. 2. Right carpal tunnel release. ANESTHESIA: General with local SURGERY/PROCEDURE DETAILS: This is a pleasant, 38-year-old female who had clinical findings and a positive response to a cortisone injection for her carpal tunnel and and ultrasound consistent with mild for ulnar neuropathy. We reviewed the risks, benefits, alternatives and potential complications involving both operative nonoperative treatment for both. Pt understood and wished to pursue surgery. On 01/18/2024, the patient was clearly identified in the preoperative area marked accordingly on the Rt elbow and wrist. Pt received 2 g of Ancef in the IV within 1 hour of incision or tourniquet. Pt was taken the operative suite placed in a supine position with an armboard on the affected side. Anesthesia assumed care of the head neck for the main of the case and began a supplemental anesthetic. All other bony landmarks were properly padded in standard fashion. An appropriate timeout was conducted and all in the room were in agreement, signed consent form was on the chart. Local anesthetic was provided at the elbow for approximately 6 cc with 0.5% Marcaine with 1 100,000 epinephrine. At the wrist and at the palm for approximately another 12 cc. A tourniquet was applied. An incision was made over the medial portion of the elbow based over the medial epicondyle, superficially through the skin with a 15 blade. I came throughout the dermis and I bluntly dissected down to the fascia overlying the ulnar nerve at the medial elbow. A branch of the antebrachial cutaneous nerve was readily identified and protected throughout the case. Using careful nerve handling technique I marked my way distally freeing up the nerve and releasing it distally at the level of its insertion underneath the fascia of the flexor carpi ulnaris. A leash of vessels was ligated, freeing up the nerve at this level of constriction. She had a medial head of the triceps lying directly over the nerve, at the level of and just proximal to the cubital tunnel and this was divide as well as Collins's fascia was released at the cubital tunnel. I then worked my way proximally and released about 5 cm proximal to the medial epicondyle, though the intermuscular septum was not a point of constricture/tether. Again, tight through this area of release as well. At this time I took the elbow through full range of motion with flexion and extension and there was no subluxation of the nerve. After it's complete decompression, the wound was copiously irrigated and a moist re-alberto was applied. Next, A longitudinal incision was made with in line with the third web space from 1 cm distal of the wrist crease to Madden's cardinal line. I used Danilo Rakes to retract the soft tissues. Bipolar electrocautery was used for hemostasis. I bluntly dissected down with Littler scissors to distal edge of the transverse carpal ligament until a flash of fat was noted. I directly divided distal edge of the transverse carpal ligament with a #15 blade. Attention was then focused on the proximal portion and I used Littler scissors to bluntly dissect off the volar surface of the transverse carpal ligament. A carpal tunnel and median nerve protection guide was slid directly under the ligament for dilation and a second time for appropriate positioning, this was passed freely without any resistance. Subsequently, I selected a mini meniscotome Harnett blade and slid this in the protective guide, completely dividing the transverse carpal ligament. Danilo rakes were used to view up the wound to visualize for complete release and a [place] elevator was used to palpate for complete release. At this point, the tourniquet was taken down and hemostasis was observed at both sites. The wounds were copiously irrigated with normal saline. The elbow was closed with a few buried 3-0 Monocryl sutures and then subsequently a running subcuticular Monocryl 4-0 with tails and Steri-Strips. The palm incision was closed with 3-0 nylons. Xeroform gauze, sterile 4 x 4's, ABD at the elbow and Agapito bandages were applied for final bandage. PRE-OP/PRE-PROCEDURE DIAGNOSIS: 1. 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 2. Right carpal tunnel syndrome. POST-OP/POST-PROCEDUR E DIAGNOSIS: Same as Preop ESTIMATED BLOOD LOSS: 20 mls SPECIMENS: none IMPLANTABLE DEVICES: None DRAINS: None (more content not included)... Normal [facility] STREP A MOLECULAR (POC)on Procedural Control Valid [facility] Strep A (POCT) Negative Negative [facility] US Upper extremity - righton 11-30-2023 [facility] XR Finger - right AP and Lat eral and obliqueon 10-10-2023 IMPRESSION: 3 views of the remaining finger of the right hand have been obtained. The bones are well-mineralized without evidence of fracture. Joint spaces are maintained. There is a small amount of air seen within the soft tissues of the distal left, possibly related to clinically described infectious process. No underlying bony involvement. Surveying Crew Stake Runner: JIM Transcribe Date/Time: Oct 10 2023 1:22P Dictated by : HIRAM BENNETT MD This examination was interpreted and the report reviewed and electronically signed by: HIRAM BENNETT MD on Oct 10 2023 1:23PM EST DIVISION OF RADIOLOGY * * *Final Report* * * DATE OF EXAM: Oct 10 2023 1:20PM WOX 5319 - XR DIGIT 3V FRONTAL/LAT/OBL RT / PROCEDURE REASON: Finger infection * * * * Physician Interpretation * * * * History: Finger infection FINDINGS/ DIVISION OF RADIOLOGY Provider, [facility] - 10/10/2023 * * *Final Report* * * DATE OF EXAM: Oct 10 2023 1:20PM WOX 5319 - XR DIGIT 3V FRONTAL/LAT/OBL RT / PROCEDURE REASON: Finger infection * * * * Physician Interpretation * * * * History: Finger infection FINDINGS/ IMPRESSION IMPRESSION: 3 views of the remaining finger of the right hand have been obtained. The bones are well-mineralized without evidence of fracture. Joint spaces are maintained. There is a small amount of air seen within the soft tissues of the distal left, possibly related to clinically described infectious process. No underlying bony involvement. Surveying Crew Stake Runner: JIM Transcribe Date/Time: Oct 10 2023 1:22P Dictated by : HIRAM BENNETT MD This examination was interpreted and the report reviewed and electronically signed by: HIRAM BENNETT MD on Oct 10 2023 1:23PM EST [facility] Radiology Study observation (narrative) [facility] XR Finger - right AP and Lat eral and obliqueOrdered By: Ccf Provider on 10-10-2023 [facility] Laboratory - Microbiology an d Antimicrobial susceptibilityOrdered By: Russel Reynolds on 10-03-2023 SARS-CoV-2 (COVID-19) RNA MADHAVI+probe Ql (Unsp spec) [facility] SARS-CoV-2 (COVID-19) RNA MADHAVI+probe Ql (Unsp spec) [facility] Absolute lymphocyte countOrd ered By: Vinay Villa on 04-04-2023 Lymphocytes Auto (Unsp spec) [#/Vol] 3.16 10*3/uL 0.83-4.51 [facility] Basophil percentageOrdered B y: Vinay Villa on 04-04-2023 Basophils/100 WBC (Bld) 0.9 % 0-1 [facility] Chloride [Moles/Vol] 112 mmol/L 98-107 [facility] Eosinophils/100 WBC (Bld) 6.8 % 0-5 [facility] Glucose [Mass/Vol] 103 mg/dL 74-106 [facility] Comment on above: Fasting Glucose resu lt from 100 to 125 mg/dL suggests IMPAIRED HOMEOSTASIS per A.D.A. criteria. Neutrophils (Bld) [#/Vol] 6.5 10*3/uL 2.0-7.7 [facility] Neutrophils/100 WBC (Bld) 57.1 % 47-70 [facility] Potassium [Moles/Vol] 4.1 mmol/L 3.5-5.1 [facility] Sodium [Moles/Vol] 142 mmol/L 136-145 [facility] WBC (Bld) [#/Vol] 11.4 10*3/uL 4.4-11.0 [facility] Blood erythrocytes count (nu mber/volume)Ordered By: Vinay Villa on 04-04-2023 RBC (Bld) [#/Vol] 4.81 10*6/uL 4.2-5.4 [facility] Blood hemoglobin measurement (mass/volume)Ordered By: Vinay Villa on 04-04-2023 Hemoglobin (Bld) [Mass/Vol] 14.0 g/dL 12.0-15.0 [facility] Blood lymphocytes/100 leukoc ytesOrdered By: Vinay Villa on 04-04-2023 Lymphocytes/100 WBC (Bld) 27.8 % 19-41 [facility] Blood monocytes/100 leukocyt esOrdered By: Vinay Villa on 04-04-2023 Monocytes/100 WBC (Bld) 7.0 % 0-10 [facility] Blood platelet mean volumeOr dered By: Vinay Villa on 04-04-2023 Platelet mean volume (Bld) [Entitic vol] 10.5 fL 6.2-12.0 [facility] Determination of erythrocyte mean corpuscular volume (MCV)Ordered By: Vinay Villa on 04-04-2023 MCV (RBC) [Entitic vol] 88.8 fL 81-99 [facility] Hematocrit Auto (Bld) [Volum e fraction]Ordered By: Vinay Villa on 04-04-2023 Hematocrit (Bld) [Volume fraction] 42.7 % 37-47 [facility] Influenza virus A and B and SARS-CoV-2 (COVID-19) Ag panel - Upper respiratory specimOrdered By: Vinay Villa on 04-04-2023 SARS-CoV-2 (COVID-19) RNA MADHAVI+probe Ql (Resp) [facility] Laboratory - Chemistry and C hemistry - challengeOrdered By: Vinay Villa on 04-04-2023 CO2 [Moles/Vol] 26.0 mmol/L 21.0-32.0 [facility] Urea nitrogen/Creatinine [Mass ratio] 19.9 mg/mg 10-20 [facility] Laboratory - Hematology and Cell countsOrdered By: Vinay Villa on 04-04-2023 Erythrocyte distribution width (RBC) [Entitic vol] 40.9 fL 35.1-43.9 [facility] Erythrocyte distribution width (RBC) [Ratio] 12.6 % 11.6-14.6 [facility] Immature granulocytes/100 WBC (Bld) 0.400 % 0.0-0.9 [facility] Comment on above: IG% - Immature Granu locytes (promyelocytes, myelocytes and metamyelocytes) > 1% indicates that a LEFT SHIFT is Present. MCH (RBC) [Entitic mass] 29.1 pg 27.0-32.0 [facility] Nucleated RBC/100 WBC (Bld) [Ratio] 0 % 0-5 [facility] MCHC Auto (RBC) [Mass/Vol]Or dered By: Vinay Villa on 04-04-2023 MCHC (RBC) [Mass/Vol] 32.8 g/dL 32-36 [facility] No Panel InformationOrdered By: Vinay Villa on 04-04-2023 D-Dimer Quantitative (PE/DVT) < 0.27 FEU/ug/m 0.27-0.49 [facility] Comment on above: NORMAL D-Dimer level (<0.50) indicates no DVT or PE. Estimated Creatinine Clearance Calc 158.11 ml/min [facility] Estimated GFR (MDRD) Amer 144 mL/min >60 [facility] Comment on above: GFR Calc Estimated GFR (MDRD) Non-Af Amer 119 mL/min >60 [facility] Comment on above: Non- GFR Calc Troponin I High Sensitivity < 3 pg/mL 3.0-54.0 [facility] Comment on above: Please Note: New Meagan t Units and Gender Specific Reference Ranges. For more information see Policy Stat Procedure [place] High Sensitivity Troponin (TNIH) and attachments. Platelets bldOrdered By: Juhi Villa on 04-04-2023 Platelets (Bld) [#/Vol] 255 10*3/uL 150-450 [facility] Serum or plasma calcium viola urement (mass/volume)Ordered By: Vinay Villa on 04-04-2023 Calcium [Mass/Vol] 8.7 mg/dL 8.5-10.1 [facility] Serum or plasma creatinine m easurement (mass/volume)Ordered By: Vinay Villa on 04-04-2023 Creatinine [Mass/Vol] 0.60 mg/dL 0.55-1.02 [facility] Comment on above: The validity of the calculated GFR & GFRAA in patients over 70 years has not been determined. Clinical correlation is essential. Serum or plasma urea nitroge n measurement (mass/volume)Ordered By: Vinay Villa on 04-04-2023 Urea nitrogen [Mass/Vol] 12 mg/dL 7-18 [facility] Thin prep Papanicolaou smear with manual screeningOrdered By: Vinay Villa on 04-04-2023 Thin prep Papanicolaou smear with manual screening 4 5-15 [facility] Basophil percentageOrdered B y: Christopher Johnson on 10-23-2022 Lactate [Moles/Vol] 0.9 mmol/L 0.4-2.0 [facility] Absolute lymphocyte countOrd ered By: ED PROVIDER on 10-22-2022 Lymphocytes Auto (Unsp spec) [#/Vol] 2.86 10*3/uL 0.83-4.51 [facility] Basophil percentageOrdered B y: ED PROVIDER on 10-22-2022 Basophils/100 WBC (Bld) 0.2 % 0-1 [facility] Chloride [Moles/Vol] 106 mmol/L 98-107 [facility] Eosinophils/100 WBC (Bld) 0.6 % 0-5 [facility] Glucose [Mass/Vol] 119 mg/dL 74-106 [facility] Comment on above: Fasting Glucose resu lt from 100 to 125 mg/dL suggests IMPAIRED HOMEOSTASIS per A.D.A. criteria. Neutrophils (Bld) [#/Vol] 16.2 10*3/uL 2.0-7.7 [facility] Neutrophils/100 WBC (Bld) 77.2 % 47-70 [facility] Potassium [Moles/Vol] 3.6 mmol/L 3.5-5.1 [facility] Sodium [Moles/Vol] 139 mmol/L 136-145 [facility] WBC (Bld) [#/Vol] 21.0 10*3/uL 4.4-11.0 [facility] Blood erythrocytes count (nu mber/volume)Ordered By: ED PROVIDER on 10-22-2022 RBC (Bld) [#/Vol] 4.99 10*6/uL 4.2-5.4 [facility] Blood hemoglobin measurement (mass/volume)Ordered By: ED PROVIDER on 10-22-2022 Hemoglobin (Bld) [Mass/Vol] 14.4 g/dL 12.0-15.0 [facility] Blood lymphocytes/100 leukoc ytesOrdered By: ED PROVIDER on 10-22-2022 Lymphocytes/100 WBC (Bld) 13.6 % 19-41 [facility] Blood monocytes/100 leukocyt esOrdered By: ED PROVIDER on 10-22-2022 Monocytes/100 WBC (Bld) 6.4 % 0-10 [facility] Blood platelet mean volumeOr dered By: ED PROVIDER on 10-22-2022 Platelet mean volume (Bld) [Entitic vol] 10.3 fL 6.2-12.0 [facility] Determination of erythrocyte mean corpuscular volume (MCV)Ordered By: ED PROVIDER on 10-22-2022 MCV (RBC) [Entitic vol] 86.0 fL 81-99 [facility] Hematocrit Auto (Bld) [Volum e fraction]Ordered By: ED PROVIDER on 10-22-2022 Hematocrit (Bld) [Volume fraction] 42.9 % 37-47 [facility] Influenza virus A and B and SARS-CoV-2 (COVID-19) Ag panel - Upper respiratory specimOrdered By: ED PROVIDER on 10-22-2022 SARS-CoV-2 (COVID-19) RNA MADHAVI+probe Ql (Resp) [facility] Laboratory - Chemistry and C hemistry - challengeOrdered By: ED PROVIDER on 10-22-2022 CO2 [Moles/Vol] 24.0 mmol/L 21.0-32.0 [facility] Urea nitrogen/Creatinine [Mass ratio] 26.5 mg/mg 10-20 [facility] Laboratory - Hematology and Cell countsOrdered By: ED PROVIDER on 10-22-2022 Erythrocyte distribution width (RBC) [Entitic vol] 38.9 fL 35.1-43.9 [facility] Erythrocyte distribution width (RBC) [Ratio] 12.5 % 11.6-14.6 [facility] Immature granulocytes/100 WBC (Bld) 2.000 % 0.0-0.9 [facility] Comment on above: IG% - Immature Granu locytes (promyelocytes, myelocytes and metamyelocytes) > 1% indicates that a LEFT SHIFT is Present. MCH (RBC) [Entitic mass] 28.9 pg 27.0-32.0 [facility] Nucleated RBC/100 WBC (Bld) [Ratio] 0 % 0-5 [facility] MCHC Auto (RBC) [Mass/Vol]Or dered By: ED PROVIDER on 10-22-2022 MCHC (RBC) [Mass/Vol] 33.6 g/dL 32-36 [facility] No Panel InformationOrdered By: Dr. Villa on 10-22-2022 D-Dimer Quantitative (PE/DVT) 0.66 FEU/ug/m 0.27-0.49 [facility] Comment on above: D-Dimer ELEVATED (>0 .49): Additional studies and clinicalassessments are indicated to conclude diagnosis of:Deep Vein Thrombosis (DVT) or Pulmonary Embolism (PE)CRITICAL VALUE VERIFIED. CALLED TO Shin LOZADA10/22/22 Vanita Morris.RESULTS READ BACK BY SAME. No Panel InformationOrdered By: ED PROVIDER on 10-22-2022 Estimated Creatinine Clearance Calc 175.48 ml/min [facility] Estimated GFR (MDRD) Amer 168 mL/min >60 [facility] Comment on above: GFR Calc Estimated GFR (MDRD) Non-Af Amer 139 mL/min >60 [facility] Comment on above: Non- GFR Calc Platelets bldOrdered By: ED PROVIDER on 10-22-2022 Platelets (Bld) [#/Vol] 278 10*3/uL 150-450 [facility] Serum or plasma calcium viola urement (mass/volume)Ordered By: ED PROVIDER on 10-22-2022 Calcium [Mass/Vol] 8.9 mg/dL 8.5-10.1 [facility] Serum or plasma creatinine m easurement (mass/volume)Ordered By: ED PROVIDER on 10-22-2022 Creatinine [Mass/Vol] 0.53 mg/dL 0.55-1.02 [facility] Comment on above: The validity of the calculated GFR & GFRAA in patients over 70 years has not been determined. Clinical correlation is essential. Serum or plasma urea nitroge n measurement (mass/volume)Ordered By: ED PROVIDER on 10-22-2022 Urea nitrogen [Mass/Vol] 14 mg/dL 7-18 [facility] Thin prep Papanicolaou smear with manual screeningOrdered By: ED PROVIDER on 10-22-2022 Thin prep Papanicolaou smear with manual screening 9 5-15 [facility] US FEMALE PELVIS TRANSVAGon 09-29-2022 [facility] STREP A MOLECULAR (POC)on Procedural Control Valid [facility] Strep A (POCT) Negative Negative [facility] MRI WRIST WO IVCON RTon 07-21 [facility] FEMALE PELVIS TRANSVAGon 08-11-2022 [facility] UA DIP, URINE (POC)on 2021 BILIRUBIN UA (POCT) Negative Negative [place] CLARITY UA (POCT) Cloudy [facility] COLOR UA (POCT) Yellow [facility] GLUCOSE UA (POCT) Negative Negative mg/dL [facility] HEMOGLOBIN/BLOOD UA (POCT) Large Abnormal Negative [facility] KETONE UA (POCT) Negative Negative mg/dL [facility] LEUKOCYTES UA (POCT) Negative Negative [facility] NITRITE UA (POCT) Negative Negative [facility] PH UA (POCT) 6.0 4.5 - 8.0 [facility] Protein Ql (U) Negative Negative mg/dL [facility] SPECIFIC GRAVITY UA (POCT) >=1.030 1.005 - 1.030 [facility] UROBILINOGEN UA (POCT) 0.2 E.U./dL Anna l E.U./dL [facility] XR WRIST GENERAL 3V PA/LAT/O BL RIGHTon 06-07-2022 [facility] XR Wrist - right PA and Late ral and Obliqueon 06-07-2022 IMPRESSION: No acute radiographic abnormalities seen in the right wrist. Surveying Crew Stake Runner: JIM Transcribe Date/Time: Jun 07 2022 3:33P Dictated by : PAIGE LEMON MD This examination was interpreted and the report reviewed and electronically signed by: PAIGE LEMON MD on Jun 07 2022 3:36PM [facility] DIVISION OF RADIOLOGY * * *Final Report* * * DATE OF EXAM: Jun 07 2022 3:30PM WOX 5271 - XR WRIST 3V PA/LAT/OBL RT / PROCEDURE REASON: Wrist injuries, right, initial encounter * * * * Physician Interpretation * * * * EXAM TITLE: XR WRIST 3V PA/LAT/OBL RT EXAM DATE/TIME: 06/07/2022 3:30 PM COMPARISON: None. CLINICAL INDICATION/HISTORY: Injury. TECHNIQUE: PA, lateral, and lateral views of right wrist are presented. FINDINGS: No acute fractures or subluxations are noted. There is a 9 mm area sclerotic lesion or opacity in the distal radius with uncertain etiology; however it does not seem to be representing acute fracture. The joint spaces are well preserved. The mineralization of the bones is normal. There is no significant soft tissue swelling. DIVISION OF RADIOLOGY Provider, Ailyn Yeyo Dsouza - 06/07/2022 * * *Final Report* * * DATE OF EXAM: Jun 07 2022 3:30PM WOX 5271 - XR WRIST 3V PA/LAT/OBL RT / PROCEDURE REASON: Wrist injuries, right, initial encounter * * * * Physician Interpretation * * * * EXAM TITLE: XR WRIST 3V PA/LAT/OBL RT EXAM DATE/TIME: 06/07/2022 3:30 PM COMPARISON: None. CLINICAL INDICATION/HISTORY: Injury. TECHNIQUE: PA, lateral, and lateral views of right wrist are presented. FINDINGS: No acute fractures or subluxations are noted. There is a 9 mm area sclerotic lesion or opacity in the distal radius with uncertain etiology; however it does not seem to be representing acute fracture. The joint spaces are well preserved. The mineralization of the bones is normal. There is no significant soft tissue swelling. IMPRESSION IMPRESSION: No acute radiographic abnormalities seen in the right wrist. Surveying Crew Stake Runner: JIM Transcribe Date/Time: Jun 07 2022 3:33P Dictated by : PAIGE LEMON MD This examination was interpreted and the report reviewed and electronically signed by: PAIGE LEMON MD on Jun 07 2022 3:36PM [facility] Radiology Study observation (narrative) [facility] XR Wrist - right PA and Late ral and ObliqueOrdered By: Ccf Provider on 06-07-2022 [facility] XR CALCANEUS 2V AXIAL/LAT LE FTon 05-05-2022 [facility] XR Calcaneus - left 2 Viewso n 05-05-2022 IMPRESSION: Miniscule calcaneal enthesophytes. Surveying Crew Stake Runner[facility] Transcribe Date/Time: May 05 2022 3:26P Dictated by : ANDREZ COPPOLA MD This examination was interpreted and the report reviewed and electronically signed by: ANDREZ COPPOLA MD on May 05 2022 3:26PM [facility] DIVISION OF RADIOLOGY * * *Final Report* * * DATE OF EXAM: May 05 2022 3:15PM WOX 5306 - XR CALCANEUS 2V AXIAL/LAT LT / PROCEDURE REASON: Pain of left heel * * * * Physician Interpretation * * * * CLINICAL INDICATION: Heel pain TECHNIQUE: Two-view radiographic study of the left calcaneus COMPARISON: None FINDINGS: No acute fracture or dislocation identified. Miniscule dorsal and plantar calcaneal enthesophytes. DIVISION OF RADIOLOGY Provider, [facility] Yeyo Dsouza - 05/05/2022 * * *Final Report* * * DATE OF EXAM: May 05 2022 3:15PM WOX 5306 - XR CALCANEUS 2V AXIAL/LAT LT / PROCEDURE REASON: Pain of left heel * * * * Physician Interpretation * * * * CLINICAL INDICATION: Heel pain TECHNIQUE: Two-view radiographic study of the left calcaneus COMPARISON: None FINDINGS: No acute fracture or dislocation identified. Miniscule dorsal and plantar calcaneal enthesophytes. IMPRESSION IMPRESSION: Miniscule calcaneal enthesophytes. Surveying Crew Stake Runner: PSCB Transcribe Date/Time: May 05 2022 3:26P Dictated by : ANDREZ COPPOLA MD This examination was interpreted and the report reviewed and electronically signed by: ANDREZ COPPOLA MD on May 05 2022 3:26PM EST [facility] Radiology Study observation (narrative) [facility] XR Calcaneus - left 2 ViewsO rdered By: Cc Provider on 05-05-2022 [facility] Absolute lymphocyte counton 01-26-2022 Lymphocytes Auto (Unsp spec) [#/Vol] 4.68 10*3/uL 0.83-4.51 [facility] Work Phone: Basophil percentageon 2021 Basophil percentage 25-50 SEEN /hpf [facility] Work Phone: Basophils/100 WBC (Bld) 0.6 % 0-1 [facility] Work Phone: Chloride [Moles/Vol] 106 mmol/L 98-107 [facility] Work Phone: Eosinophils/100 WBC (Bld) 4.8 % 0-5 [facility] Work Phone: Glucose [Mass/Vol] 89 mg/dL 74-106 [facility] Work Phone: Neutrophils (Bld) [#/Vol] 6.7 10*3/uL 2.0-7.7 [facility] Work Phone: Neutrophils/100 WBC (Bld) 52.1 % 47-70 [facility] Work Phone: Potassium [Moles/Vol] 3.7 mmol/L 3.5-5.1 [facility] Work Phone: Sodium [Moles/Vol] 138 mmol/L 136-145 [facility] Work Phone: WBC (Bld) [#/Vol] 12.8 10*3/uL 4.4-11.0 [facility] Work [facility]: Bilirubin Test strip Ql (U)o n 01-26-2022 Bilirubin Ql (U) Negative Negative [facility] Work Phone: Blood erythrocytes count (nu mber/volume)on 01-26-2022 RBC (Bld) [#/Vol] 4.76 10*6/uL 4.2-5.4 [facility] Work Phone: Blood hemoglobin measurement (mass/volume)on 01-26-2022 Hemoglobin (Bld) [Mass/Vol] 14.1 g/dL 12.0-15.0 [facility] Work Phone: Blood lymphocytes/100 leukoc yteson 01-26-2022 Lymphocytes/100 WBC (Bld) 36.6 % 19-41 [facility] Work Phone: Blood monocytes/100 leukocyt eson 01-26-2022 Monocytes/100 WBC (Bld) 5.5 % 0-10 [facility] Work Phone: Blood platelet mean volumeon 01-26-2022 Platelet mean volume (Bld) [Entitic vol] 10.3 fL 6.2-12.0 [facility] Work Phone: Determination of erythrocyte mean corpuscular volume (MCV)on 01-26-2022 MCV (RBC) [Entitic vol] 88.0 fL 81-99 [facility] Work Phone: Hematocrit Auto (Bld) [Volum e fraction]on 01-26-2022 Hematocrit (Bld) [Volume fraction] 41.9 % 37-47 [facility] Work Phone: Ketones Test strip Ql (U)on 01-26-2022 Ketones Ql (U) Negative Negative [facility] Work Phone: [phone] Laboratory - Chemistry and C hemistry - challengeon 01-26-2022 CO2 [Moles/Vol] 24.0 mmol/L 21.0-32.0 [facility] Work Phone: [phone] Urea nitrogen/Creatinine [Mass ratio] 22.1 mg/mg 10-20 [facility] Work Phone: [phone] Laboratory - Hematology and Cell countson 01-26-2022 Erythrocyte distribution width (RBC) [Entitic vol] 38.3 fL 35.1-43.9 [facility] Work Phone: [phone] Erythrocyte distribution width (RBC) [Ratio] 11.9 % 11.6-14.6 [facility] Work Phone: [phone] Immature granulocytes/100 WBC (Bld) 0.400 % 0.0-0.9 [facility] Work Phone: [phone] Comment on above: IG% - Immature Granu locytes (promyelocytes, myelocytes and metamyelocytes) > 1% indicates that a LEFT SHIFT is Present. MCH (RBC) [Entitic mass] 29.6 pg 27.0-32.0 [facility] Work Phone: Nucleated RBC/100 WBC (Bld) [Ratio] 0 % 0-5 [facility] Work Phone: [phone] MCHC Auto (RBC) [Mass/Vol]on 01-26-2022 MCHC (RBC) [Mass/Vol] 33.7 g/dL 32-36 [facility] Work Phone: [phone] Mucus LM Ql (Urine sed)on Mucus Ql (Urine sed) 0 SEEN /hpf [facility] Work Phone: [phone] Nitrite Test strip Ql (U)on 01-26-2022 Nitrite Ql (U) Negative Negative [facility] Work Phone: [phone] No Panel Informationon 01-26 Estimated Creatinine Clearance Calc 172.84 ml/min [facility] Work Phone: Estimated GFR (MDRD) Amer 164 mL/min >60 [facility] Work Phone: Comment on above: GFR Calc Estimated GFR (MDRD) Non-Af Amer 135 mL/min >60 [facility] Work Phone: Comment on above: Non- GFR Calc Platelets bldon 01-26-2022 Platelets (Bld) [#/Vol] 282 10*3/uL 150-450 [facility] Work Phone: Protein Test strip Ql (U)on 01-26-2022 Protein Ql (U) 15 mg/dl Negative [facility] Work Phone: Serum or plasma calcium viola urement (mass/volume)on 01-26-2022 Calcium [Mass/Vol] 8.7 mg/dL 8.5-10.1 [facility] Work Phone: Serum or plasma creatinine m easurement (mass/volume)on 01-26-2022 Creatinine [Mass/Vol] 0.54 mg/dL 0.55-1.02 [facility] Work Phone: Comment on above: The validity of the calculated GFR & GFRAA in patients over 70 years has not been determined. Clinical correlation is essential. Serum or plasma urea nitroge n measurement (mass/volume)on 01-26-2022 Urea nitrogen [Mass/Vol] 12 mg/dL 7-18 [facility] Work Phone: Squamous epithelial cells de tection in urine sediment by light microscopyon 01-26-2022 Epithelial cells.squamous LM Ql (Urine sed) 0-5 SEEN /hpf [facility] Work Phone: Thin prep Papanicolaou smear with manual screeningon 01-26-2022 Thin prep Papanicolaou smear with manual screening 8 5-15 [facility] Work Phone: UA DIP, URINE (POC)on 2021 BILIRUBIN UA (POCT) Negative Negative [place] CLARITY UA (POCT) Clear [facility] COLOR UA (POCT) Yellow [facility] GLUCOSE UA (POCT) Negative Negative mg/dL [facility] HEMOGLOBIN/BLOOD UA (POCT) Moderate Abnormal Negative [facility] KETONE UA (POCT) Negative Negative mg/dL [facility] LEUKOCYTES UA (POCT) Negative Negative [facility] NITRITE UA (POCT) Negative Negative [facility] PH UA (POCT) 7.0 4.5 - 8.0 [facility] Protein Ql (U) Negative Negative mg/dL [facility] SPECIFIC GRAVITY UA (POCT) 1.020 1.005 - 1.030 [facility] UROBILINOGEN UA (POCT) 0.2 E.U./dL Anna l E.U./dL [facility] Urine blood detectionon 01-17 RBC Ql (U) 150 /ul Negative [facility] Work Phone: RBC Ql (U) 5-10 SEEN /hpf [facility] Work Phone: Urine clarityon 01-26-2022 Clarity (U) Cloudy Clear [facility] Work Phone: Urine color determinationon 01-26-2022 Color (U) Yellow Yellow [facility] Work Phone: Urine glucose detectionon Glucose Ql (U) Normal mg/dl Normal [facility] Work Phone: Urine leukocyte esterase det ection by dipstickon 01-26-2022 Leukocyte esterase Test strip Ql (U) 25 /ul Negative [facility] Work Phone: Urine pHon 01-26-2022 pH (U) 7.0 [pH] [facility] Work Phone: Urine sediment bacteria coun t by microscopy (number/high power field)on 01-26-2022 Bacteria LM.HPF (Urine sed) [#/Area] 4 /[HPF] None Seen [facility] Work Phone: Urine specific gravity measu rementon 01-26-2022 Specific gravity (U) [Rel density] 1.010 [facility] Work Phone: Urobilinogen Auto test strip Ql (U)on 01-26-2022 Urobilinogen Ql (U) Normal mg/dl Normal [facility] Work Phone: STREP A MOLECULAR (POC)on Procedural Control Valid [facility] Strep A (POCT) Negative Negative [facility] Absolute lymphocyte counton 12-09-2021 Lymphocytes Auto (Unsp spec) [#/Vol] 5.49 10*3/uL 0.83-4.51 [facility] Work Phone: Basophil percentageon 2021 Basophil percentage 0 SEEN /hpf [facility] Work Phone: Basophils/100 WBC (Bld) 0.8 % 0-1 [facility] Work Phone: Bilirubin [Mass/Vol] 0.20 mg/dL 0.20-1.00 [facility] Work Phone: Comment on above: For patients on eltr ombopag therapy, use of Dimension [place] TBIL is not recommended. Chloride [Moles/Vol] 107 mmol/L 98-107 [facility] Work Phone: Eosinophils/100 WBC (Bld) 5.0 % 0-5 [facility] Work Phone: Glucose [Mass/Vol] 92 mg/dL 74-106 [facility] Work Phone: Lactate [Moles/Vol] 0.7 mmol/L 0.4-2.0 [facility] Work Phone: Neutrophils (Bld) [#/Vol] 6.8 10*3/uL 2.0-7.7 [facility] Work Phone: Neutrophils/100 WBC (Bld) 48.0 % 47-70 [facility] Work Phone: Potassium [Moles/Vol] 3.8 mmol/L 3.5-5.1 [facility] Work Phone: Protein [Mass/Vol] 7.3 g/dL 6.4-8.2 [facility] Work Phone: Sodium [Moles/Vol] 140 mmol/L 136-145 [facility] Work Phone: [phone] WBC (Bld) [#/Vol] 14.1 10*3/uL 4.4-11.0 [facility] Work Phone: [phone] Bilirubin Test strip Ql (U)o n 12-09-2021 Bilirubin Ql (U) Negative Negative [facility] Work Phone: [phone] Blood erythrocytes count (nu mber/volume)on 12-09-2021 RBC (Bld) [#/Vol] 5.42 10*6/uL 4.2-5.4 [facility] Work Phone: [phone] Blood hemoglobin measurement (mass/volume)on 12-09-2021 Hemoglobin (Bld) [Mass/Vol] 15.7 g/dL 12.0-15.0 [facility] Work Phone: Blood lymphocytes/100 leukoc yteson 12-09-2021 Lymphocytes/100 WBC (Bld) 38.9 % 19-41 [facility] Work Phone: [phone] Blood manual differential co mment interpretation (narrative result)on 12-09-2021 Manual differential comment Bryan (Bld) [Interp] SCANNED [facility] Work Phone: [phone] Comment on above: LYMPHOCYTOSIS NOTED Blood monocytes/100 leukocyt eson 12-09-2021 Monocytes/100 WBC (Bld) 6.9 % 0-10 [facility] Work Phone: [phone] Blood platelet mean volumeon 12-09-2021 Platelet mean volume (Bld) [Entitic vol] 10.8 fL 6.2-12.0 [facility] Work Phone: [phone] Determination of erythrocyte mean corpuscular volume (MCV)on 12-09-2021 MCV (RBC) [Entitic vol] 88.0 fL 81-99 [facility] Work Phone: [phone] Hematocrit Auto (Bld) [Volum e fraction]on 12-09-2021 Hematocrit (Bld) [Volume fraction] 47.7 % 37-47 [facility] Work Phone: Ketones Test strip Ql (U)on 12-09-2021 Ketones Ql (U) Negative Negative [facility] Work Phone: [phone] Laboratory - Chemistry and C hemistry - challengeon 12-09-2021 ALP [Catalytic activity/Vol] 42 U/L 45-117 [facility] Work Phone: [phone] ALT [Catalytic activity/Vol] 23 U/L 13-56 [facility] Work Phone: [phone] CO2 [Moles/Vol] 27.0 mmol/L 21.0-32.0 [facility] Work Phone: [phone] Globulin (S) [Mass/Vol] 3.5 g/dL 2.2-4.2 [facility] Work Phone: [phone] Lipase [Catalytic activity/Vol] 150 U/L 73-393 [facility] Work Phone: [phone] Urea nitrogen/Creatinine [Mass ratio] 22.7 mg/mg 10-20 [facility] Work Phone: [phone] Laboratory - Hematology and Cell countson 12-09-2021 Erythrocyte distribution width (RBC) [Entitic vol] 40.1 fL 35.1-43.9 [facility] Work Phone: [phone] Erythrocyte distribution width (RBC) [Ratio] 12.4 % 11.6-14.6 [facility] Work Phone: [phone] Immature granulocytes/100 WBC (Bld) 0.400 % 0.0-0.9 [facility] Work Phone: [phone] Comment on above: IG% - Immature Granu locytes (promyelocytes, myelocytes and metamyelocytes) > 1% indicates that a LEFT SHIFT is Present. MCH (RBC) [Entitic mass] 29.0 pg 27.0-32.0 [facility] Work Phone: Nucleated RBC/100 WBC (Bld) [Ratio] 0 % 0-5 [facility] Work Phone: MCHC Auto (RBC) [Mass/Vol]on 12-09-2021 MCHC (RBC) [Mass/Vol] 32.9 g/dL 32-36 [facility] Work Phone: Mucus LM Ql (Urine sed)on Mucus Ql (Urine sed) 0 SEEN /hpf [facility] Work Phone: [phone] Nitrite Test strip Ql (U)on 12-09-2021 Nitrite Ql (U) Negative Negative [facility] Work Phone: No Panel Informationon 12-09 Estimated Creatinine Clearance Calc 138.80 ml/min [facility] Work Phone: Estimated GFR (MDRD) Amer 130 mL/min >60 [facility] Work Phone: Comment on above: GFR Calc Estimated GFR (MDRD) Non-Af Amer 108 mL/min >60 [facility] Work Phone: Comment on above: Non- GFR Calc [facility] Platelets bldon 12-09-2021 Platelets (Bld) [#/Vol] 305 10*3/uL 150-450 [facility] Work Phone: Protein Test strip Ql (U)on 12-09-2021 Protein Ql (U) Negative Negative [facility] Work Phone: [phone] Serum or plasma albumin viola urement (mass/volume)on 12-09-2021 Albumin [Mass/Vol] 3.8 g/dL 3.2-5.0 [facility] Work Phone: [phone] or plasma albumin/glob ulin mass ratioon 12-09-2021 Albumin/Globulin [Mass ratio] 1.1 {ratio} 0.9-2.4 [facility] Work Phone: [phone] Serum or plasma calcium viola urement (mass/volume)on 12-09-2021 Calcium [Mass/Vol] 9.4 mg/dL 8.5-10.1 [facility] Work Phone: [phone] Serum or plasma creatinine m easurement (mass/volume)on 12-09-2021 Creatinine [Mass/Vol] 0.66 mg/dL 0.55-1.02 [facility] Work Phone: Comment on above: The validity of the calculated GFR & GFRAA in patients over 70 years has not been determined. Clinical correlation is essential. Serum or plasma urea nitroge n measurement (mass/volume)on 12-09-2021 Urea nitrogen [Mass/Vol] 15 mg/dL 7-18 [facility] Work Phone: Squamous epithelial cells de tection in urine sediment by light microscopyon 12-09-2021 Epithelial cells.squamous LM Ql (Urine sed) 0 SEEN /hpf [facility] Work Phone: Thin prep Papanicolaou smear with manual screeningon 12-09-2021 Thin prep Papanicolaou smear with manual screening 12 U/L 15-37 [facility] Work Phone: Thin prep Papanicolaou smear with manual screening 6 5-15 [facility] Work Phone: Urine blood detectionon 11-18 RBC Ql (U) 150 /ul Negative [facility] Work Phone: RBC Ql (U) 5-10 SEEN /hpf [facility] Work Phone: Urine clarityon 12-09-2021 Clarity (U) Clear Clear [facility] Work Phone: Urine color determinationon 12-09-2021 Color (U) Yellow Yellow [facility] Work Phone: Urine glucose detectionon Glucose Ql (U) Normal mg/dl Normal [facility] Work Phone: Urine leukocyte esterase det ection by dipstickon 12-09-2021 Leukocyte esterase Test strip Ql (U) Negative Negative [facility] Work Phone: Urine pHon 12-09-2021 pH (U) 8.0 [pH] [facility] Work Phone: [phone] Urine sediment bacteria coun t by microscopy (number/high power field)on 12-09-2021 Bacteria LM.HPF (Urine sed) [#/Area] 0 /[HPF] None Seen [facility] Work Phone: Urine specific gravity measu rementon 12-09-2021 Specific gravity (U) [Rel density] 1.015 [facility] Work Phone: Urobilinogen Auto test strip Ql (U)on 12-09-2021 Urobilinogen Ql (U) Normal mg/dl Normal [facility] Work Phone: XR ABDOMEN 1V SUPINEon 12-07 [facility] XR Abdomen Supine and Uprigh ton 12-07-2021 IMPRESSION: Unremarkable abdomen x-ray. Surveying Crew Stake Runner: JIM Transcribe Date/Time: Dec 07 2021 3:33P Dictated by : PAIGE LEMON MD This examination was interpreted and the report reviewed and electronically signed by: PAIGE LEMON MD on Dec 07 2021 3:35PM [facility] DIVISION OF RADIOLOGY * * *Final Report* * * DATE OF EXAM: Dec 07 2021 3:18PM WOX [id number] - XR ABDOMEN 1V SUPINE / PROCEDURE REASON: multiple diagnoses * * * * Physician Interpretation * * * * EXAM TITLE: XR ABDOMEN 1V SUPINE EXAM DATE/TIME: 12/07/2021 3:18 PM COMPARISON: None. CLINICAL INDICATION/HISTORY: Generalized abdominal pain. TECHNIQUE: AP views of the abdomen are presented. FINDINGS: No abnormally dilated bowel loops identified. There are no abnormal calcifications. The bony structures appear intact. DIVISION OF RADIOLOGY Provider, [facility] Yeyo jurado Cobb - 12/07/2021 * * *Final Report* * * DATE OF EXAM: Dec 07 2021 3:18PM WOX [id number] - XR ABDOMEN 1V SUPINE / PROCEDURE REASON: multiple diagnoses * * * * Physician Interpretation * * * * EXAM TITLE: XR ABDOMEN 1V SUPINE EXAM DATE/TIME: 12/07/2021 3:18 PM COMPARISON: None. CLINICAL INDICATION/HISTORY: Generalized abdominal pain. TECHNIQUE: AP views of the abdomen are presented. FINDINGS: No abnormally dilated bowel loops identified. There are no abnormal calcifications. The bony structures appear intact. IMPRESSION IMPRESSION: Unremarkable abdomen x-ray. Surveying Crew Stake Runner: [facility] Transcribe Date/Time: Dec 07 2021 3:33P Dictated by : PAIGE LEMON MD This examination was interpreted and the report reviewed and electronically signed by: PAIGE LEMON MD on Dec 07 2021 3:35PM EST [facility] Radiology Study [facility] (narrative) [facility] XR Abdomen Supine and Uprigh tOrdered By: [facility] Provider on 12-07-2021 [facility] XR Radius and Ulna - right A P and Lateralon 09-02-2021 IMPRESSION: No radiographic evidence of acute osseous abnormality Surveying Crew Stake Runner: [facility] Transcribe Date/Time: Sep 02 2021 11:10A Dictated by : ANDREZ COPPOLA MD This examination was interpreted and the report reviewed and electronically signed by: ANDREZ COPPOLA MD on Sep 02 2021 11:11AM [facility] DIVISION OF RADIOLOGY * * *Final Report* * * DATE OF EXAM: Sep 02 2021 10:31AM WOX [id number] - XR FOREARM 2V AP/LAT RT / PROCEDURE REASON: multiple diagnoses * * * * Physician Interpretation * * * * CLINICAL INDICATION: Pain TECHNIQUE: Frontal and lateral radiographs of the right forearm COMPARISON: None FINDINGS: No acute fracture or dislocation identified. Bone island in the distal radius. No soft tissue calcifications. DIVISION OF RADIOLOGY Provider, [facility] - 09/02/2021 * * *Final Report* * * DATE OF EXAM: Sep 02 2021 10:31AM WOX [id number] - XR FOREARM 2V AP/LAT RT / PROCEDURE REASON: multiple diagnoses * * * * Physician Interpretation * * * * CLINICAL INDICATION: Pain TECHNIQUE: Frontal and lateral radiographs of the right forearm COMPARISON: None FINDINGS: No acute fracture or dislocation identified. Bone island in the distal radius. No soft tissue calcifications. IMPRESSION IMPRESSION: No radiographic evidence of acute osseous abnormality Surveying Crew Stake Runner: [facility] Transcribe Date/Time: Sep 02 2021 11:10A Dictated by : ANDREZ COPPOLA MD This examination was interpreted and the report reviewed and electronically signed by: ANDREZ COPPOLA MD on Sep 02 2021 11:11AM EST [facility] Radiology Study observation (narrative) [facility] XR Radius and Ulna - right A P and LateralOrdered By: [facility] Provider on 09-02-2021 [facility] XR Chest PA and Lateralon IMPRESSION: 1. Slight right infrahilar hazy opacity may represent infiltrate and/or atelectasis. Surveying Crew Stake Runner: JIM Transcribe Date/Time: Jun 26 2021 3:58P Dictated by : OLINDA WILDER MD This examination was interpreted and the report reviewed and electronically signed by: OLINDA WILDER MD on Jun 26 2021 4:01PM [facility] DIVISION OF RADIOLOGY * * *Final Report* * * DATE OF EXAM: Jun 26 2021 3:57PM WOX [id number] - XR CHEST 2V FRONTAL/LAT / PROCEDURE REASON: multiple diagnoses * * * * Physician Interpretation * * * * EXAMINATION: CHEST RADIOGRAPH (2 VIEW FRONTAL & LATERAL) CLINICAL HISTORY: Wheezing Cough MQ: XC2_6 EXAM DATE/TIME: 06/26/2021 3:57 PM COMPARISON: No relevant prior studies available. RESULT: Lines, tubes, and devices: None. Lungs and pleura: Mild right infrahilar hazy opacity may represent infiltrate or atelectasis. No consolidation. No lung mass. No pleural effusion. No pneumothorax. Cardiomediastinal silhouette: Normal cardiomediastinal silhouette. Bones and soft tissues: Visualized portions of the bony thorax appear intact. DIVISION OF RADIOLOGY Provider, [facility] - 06/26/2021 * * *Final Report* * * DATE OF EXAM: Jun 26 2021 3:57PM WOX 5291 - XR CHEST 2V FRONTAL/LAT / PROCEDURE REASON: multiple diagnoses * * * * Physician Interpretation * * * * EXAMINATION: CHEST RADIOGRAPH (2 VIEW FRONTAL & LATERAL) CLINICAL HISTORY: Wheezing Cough MQ: XC2_6 EXAM DATE/TIME: 06/26/2021 3:57 PM COMPARISON: No relevant prior studies available. RESULT: Lines, tubes, and devices: None. Lungs and pleura: Mild right infrahilar hazy opacity may represent infiltrate or atelectasis. No consolidation. No lung mass. No pleural effusion. No pneumothorax. Cardiomediastinal silhouette: Normal cardiomediastinal silhouette. Bones and soft tissues: Visualized portions of the bony thorax appear intact. IMPRESSION IMPRESSION: 1. Slight right infrahilar hazy opacity may represent infiltrate and/or atelectasis. Surveying Crew Stake Runner: JIM Transcribe Date/Time: Jun 26 2021 3:58P Dictated by : OLINDA WILDER MD This examination was interpreted and the report reviewed and electronically signed by: OLINDA WILDER MD on Jun 26 2021 4:01PM EST [facility] Radiology Study observation (narrative) [facility] XR Chest PA and LateralOrder ed By: [facility] Provider on 06-26-2021 [facility] CR Chest PA/LATon 01-01-2019 CR Chest PA/LAT Patient Name: ARLET NAVARRO Diagnostic Radiology Exam Date/Time 01/01/2019 11:25:00 EDT Exam CR Chest PA/LAT Ordering Physician VICENTA CONKLIN PETER J Accession Number [id number] CPT4 Codes 43442 () Reason For Exam Cough Report PA AND LATERAL CHEST CLINICAL INDICATION: Cough TECHNIQUE: PA and Lateral chest COMPARISON: None FINDINGS: The cardiac and mediastinal silhouettes are normal. The lungs are clear. There is no sizable pleural effusion. The osseous structures are unremarkable. IMPRESSION: No acute process. Report Dictated on Final Dictating Physician: MD CURRY NICHOLAS Signed Date and Time: 01/01/2019 11:43 am Signed by: MD CURRY NICHOLAS Transcribed Date and Time: 01/01/2019 11:44 Normal [facility] Emergency Room Note on 06-08-2018 [place] [facility] Note Normal [facility] [place] Pat Eduon 06-08-2018 Pat Edu Normal [facility] [place] Patient Summary Documentson 06-08-2018 Patient Summary Documents Normal [facility] [place]) [place] [facility] Note on 10-15-2017 [place] [facility] Note Normal [facility] [place] Patient Summary Documentson 10-15-2017 Patient Summary Documents Normal [facility] [place] [facility] Note on 07-17-2017 [place] [facility] Note Normal [facility] [place] Patient Summary Documentson 07-17-2017 Patient Summary Documents Normal [facility] [place] XR FOOT MINIMUM 3 VIEWS JOHN Hernandes 07-17-2017 XR FOOT MINIMUM 3 VIEWS RIGHT ORIGINALXR FOOT MINIMUM 3 VIEWS RIGHT CLINICAL STATEMENT: pain COMPARISON: None FINDINGS: No acute fracture or dislocation is identified. The joint spaces are maintained. There is no radiopaque foreign body. IMPRESSION: No acute fracture or dislocation. I have personally reviewed the images of this examination and agree with the resident's findings and interpretation. Interpreted By: Rk Lopez DOPreliminary Report By: Olinda Morrow MDElectronically Signed By: Rk Lopez DO Dictated Date: 07/17/2017 1:59:04 PM Prelim Date: 07/17/2017 1:59:48 PM Sign Date: 07/17/2017 2:05:05 PM Normal [facility] ([place]) Basic Metabolic Panelon 02-18 CO2 24 mmol/L Normal - [facility] Comment on above: Order Comment: CBN Performed By: #### B MP ####[place] [id number] Electrolyte Balance 10.0 mEq/L Normal [facility] Comment on above: Order Comment: CBN Performed By: #### B MP ####[place] [id number] Glucose mass conc 101 mg/dL Normal 70-105 [facility] Comment on above: Order Comment: CBN Performed By: #### B MP ####[address] [address] BUN/Creatinine Ratio 22 mg/mg Normal 7-27 [facility] Comment on above: Order Comment: CBN Performed By: #### B MP ####[address] [address] Creatinine 0.6 mg/dL Normal 0.6-1.2 [facility] Comment on above: Order Comment: CBN Performed By: #### B MP ####[address] [address] Calcium 9.3 mg/dL Normal 8.4-10.2 [facility] Comment on above: Order Comment: CBN Performed By: #### B MP ####[address] [address] Chloride 103 mmol/L Normal 98-107 [facility] Comment on above: Order Comment: CBN Performed By: #### B MP ####[address] [address] Potassium molar conc 4.0 mmol/L Normal 3.5-5.1 [facility] Comment on above: Order Comment: CBN Performed By: #### B MP ####[place] [id number] Sodium 137 mmol/L Normal 136-146 [facility] Comment on above: Order Comment: CBN Performed By: #### B MP ####[address] [address] Urea nitrogen 13 mg/dL Normal 7-18 [facility] Comment on above: Order Comment: CBN Performed By: #### B MP ####[address] [address] CBC (AO)on 03-16-2017 Basophils Auto #/vol (Bld) 0.10 10 3/mcL Normal 0.00-0.19 [facility] Comment on above: Order Comment: CBN Performed By: #### C BCO ####[address] [address] Basophils/100 WBC Auto (Bld) 0.9 % Normal 0.0-2.5 [facility] Comment on above: Order Comment: CBN Performed By: #### C BCO ####[address] [address] Eosinophils 0.50 10 3/mcL High 0.00-0.40 [facility] Comment on above: Order Comment: CBN Performed By: #### C BCO ####[address] [address] Eosinophils/100 leukocytes 4.2 % Normal 0.0-7.0 [facility] Comment on above: Order Comment: CBN Performed By: #### C BCO ####[address] [address] Erythrocyte distribution width Auto Ratio (RBC) 12.5 % Normal 11.5-14.5 [facility] Comment on above: Order Comment: CBN Performed By: #### C BCO ####[address] [address] Erythrocytes (RBC) 5.21 10 6/mcL Normal 4.20-5.40 [facility] Comment on above: Order Comment: CBN Performed By: #### C BCO ####[address] [address] Hematocrit (HCT) 44.8 % Normal 37.0-47.0 [facility] Comment on above: Order Comment: CBN Performed By: #### C BCO ####[place] [id number] Hemoglobin mass conc (Bld) 15.2 G/dL Normal 12.0-16.0 [facility] Comment on above: Order Comment: CBN Performed By: #### C BCO ####[address] [address] Lymphocytes 3.60 10 3/mcL Normal 0.77-3.85 [facility] Comment on above: Order Comment: CBN Performed By: #### C BCO ####[place] [id number] Lymphocytes/100 leukocytes 31.5 % Normal 10.0-50.0 [facility] Comment on above: Order Comment: CBN Performed By: #### C BCO ####[place] [id number] MCH 29.1 pg Normal 27.0-31.2 [facility] Comment on above: Order Comment: CBN Performed By: #### C BCO ####[address] [address] MCHC mass conc (RBC) 33.9 G/dL Normal 33.0-37.0 [facility] Comment on above: Order Comment: CBN Performed By: #### C BCO ####[address] [address] MCV 86.0 fL Normal 80.0-94.0 [facility] Comment on above: Order Comment: CBN Performed By: #### C BCO ####[address] [address] Monocytes 0.70 10 3/mcL Normal 0.15-1.00 [facility] Comment on above: Order Comment: CBN Performed By: #### C BCO ####[address] [address] Monocytes/100 leukocytes 5.8 % Normal 1.7-13.0 [facility] Comment on above: Order Comment: CBN Performed By: #### C BCO ####[address] [address] Neutrophils 6.60 10 3/mcL High 2.85-6.16 [facility] Comment on above: Order Comment: CBN Performed By: #### C BCO ####[address] [address] Neutrophils/100 WBC Auto (Bld) 57.6 % Normal 37.0-80.0 [facility] Comment on above: Order Comment: CBN Performed By: #### C BCO ####[address] [address] Platelet mean volume (PMV) 8.8 fL Normal 7.4-10.4 [facility] Comment on above: Order Comment: CBN Performed By: #### C BCO ####[place] [address] [address] Platelets 238 10 3/mcL Normal 130-400 [facility] Comment on above: Order Comment: CBN Performed By: #### C BCO ####[place] [address] [address] WBC (Leukocytes) 11.50 10 3/mcL High 4.60-10.80 [facility] Comment on above: Order Comment: CBN Performed By: #### C BCO ####[place] [address] [address] [address] ABDOMEN/PELVIS W/O CONTRA STon 03-16-2017 CT ABDOMEN/PELVIS W/O CONTRAST ORIGINALCT ABDOMEN/PELVIS W/O CONTRAST This exam was performed according to our departmental dose optimization program, and includes the following measures where applicable: automated exposure control, adjustment of the mAs and/or kVp according to patient size and/or exam, and an iterative reconstruction algorithm. CLINICAL STATEMENT: Left sided flank pain COMPARISON: 01/02/2014 FINDINGS: Punctate nonobstructing calculus is present in the lower pole left kidney. There is no hydronephrosis. The kidneys are symmetric in size. The visualized lung bases are clear. Unenhanced morphology of the visualized liver, spleen, pancreas, and adrenal glands is unremarkable. The gallbladder is partially contracted. The stomach is unremarkable. Abdominal aorta is normal in caliber. No dilated segments of small or large bowel are demonstrated. The appendix is not dilated and is gas filled. The bladder is not well distended. Patient has had prior hysterectomy. IMPRESSION: Punctate nonobstructing left renal stone. No acute abnormality. Interpreted By: Violetta Smith MDPreliminary Report By: Violetta Smith MDElectronically Signed By: Violetta Smith MD Dictated Date: 03/16/2017 11:56:40 AM Prelim Date: 03/16/2017 11:56:40 AM Sign Date: 03/16/2017 12:00:57 PM Normal [facility] Glomerular Filtration Rate E stimateon 03-16-2017 eGFR (non-black) mL/min/{1.73_m2} Normal [facility] Comment on above: Order Comment: CBN Result Comment: Lissette patterson mean GFR = 107 mL/min/1.73 sq.m. for ages 30-39 years. Chronic Kidney Disease: Less than 60 mL/min/1.73 square metersEnd Stage Renal Disease: Less than 15 mL/min/1.73 square meters Performed By: #### G FR ####[place] [id number] [facility] Note on 03-16-2017 [facility] Note Normal [facility] Patient Summary Documentson 03-16-2017 Patient Summary Documents Normal [facility] test (u)on 017 test (u) Negative Normal [facility] Comment on above: Order Comment: CBN Result Comment: HCG not detected. Performed By: #### P REGU ####[place] [address] Urinalysis (AO)on 03-16-2017 Erythrocytes (RBC) 10-15 Abnormal NONE SEEN [facility] Comment on above: Order Comment: CBN Performed By: #### U AO ####[place] [id number] Squamous Epi 0-5 Abnormal NONE SEEN [facility] Comment on above: Order Comment: CBN Performed By: #### U AO ####[place] [id number] WBC (Leukocytes) NONE SEEN Normal NONE SEEN [facility] Comment on above: Order Comment: CBN Performed By: #### U AO ####[place] [id number] Bilirubin (total) Negative Normal NEGATIVE [facility] Comment on above: Order Comment: CBN Performed By: #### U AO ####[place] [id number] Glucose mass conc Negative Normal NEGATIVE [facility] Comment on above: Order Comment: CBN Performed By: #### U AO ####[place] [address] Hemoglobin mass conc (Bld) LARGE Abnormal NEG - TRACE [facility] Comment on above: Order Comment: CBN Performed By: #### U AO ####[place] [address] pH of blood 7.0 [pH] Normal 5.0 - 8.0 [facility] Comment on above: Order Comment: CBN Performed By: #### U AO ####[place] [address] Protein TRACE Abnormal NEG - TRACE [facility] Comment on above: Order Comment: CBN Performed By: #### U AO ####[place] [address] Urine, appearance CLEAR Normal CLEAR [facility] Comment on above: Order Comment: CBN Performed By: #### U AO ####[place] [address] Urine, color YELLOW Normal [facility] Comment on above: Order Comment: CBN Performed By: #### U AO ####[place] [address] Urine, ketones presence Negative Normal NEGATIVE A [facility] Comment on above: Order Comment: CBN Performed By: #### U AO ####[place] [id number] Urine, nitrite presence Negative Normal NEGATIVE A [facility] Comment on above: Order Comment: CBN Performed By: #### U AO ####[place] [address] Urine, specific gravity 1.015 Normal 1.015-1.025 [facility] Comment on above: Order Comment: CBN Performed By: #### U AO ####[place] [address] [id number] [place] [address] Urine, urobilinogen 1.0 {Humaira'U}/dL Normal NORMAL [facility] Comment on above: Order Comment: CBN Performed By: #### U AO ####[place] [address] [id number] [place] [address] WBC (Leukocytes) Negative Normal NEGATIVE [facility] Comment on above: Order Comment: CBN Performed By: #### U AO ####[place] [address] [place] [address] Specimen type (u) VOID Normal [facility] Comment on above: Order Comment: CBN Performed By: #### U AO ####[place] [address] [place] [address] Additional Injections: R car pal tunnel [facility] COVID-19 virus antigen assay SARS-CoV-2 (COVID-19) Ag IA.rapid Ql (Resp) [facility] Work Phone: Vital Signs Date Time Vital Sign Value Performing Clinician Faci lity 02-12-2025 18:18-0400 Body temperature 98.2 [degF] Dr. Ian Mon MD Work Phone: [facility] 02-12-2025 18:18-0400 Diastolic blood pressure 81 mm[Hg] Dr. Ian Mon MD Work Phone: [facility] 02-12-2025 18:18-0400 Heart rate 86 /min Dr. Ian Mon MD Work Phone: [facility] 02-12-2025 18:18-0400 Respiratory rate 16 /min Dr. Ian Mon MD Work Phone: [facility] 02-12-2025 18:18-0400 SaO2% (BldA) [Mass fraction] 96 % Dr. Ian Mon MD Work Phone: [facility] 02-12-2025 18:18-0400 Systolic blood pressure 119 mm[Hg] Dr. Ian Mon MD Work Phone: 6(672)843-319190 [place] [address] 02-12-2025 15:30-0400 Body height 144.[address] Ian Mon MD Work Phone: 5(631)217-301190 [place] [address] 02-12-2025 15:30-0400 Body mass index (BMI) [Ratio] 37.9 kg/m2 Dr. Ian Mon MD Work Phone: 0(269)434-408690 [place] [address] 02-12-2025 15:30-0400 Body weight 79.[address] Ian Mon MD Work Phone: 6(708)935-073490 [place] [address] 01-11-2025 20:29-0400 Body temperature 98.2 [degF] Dr. Ian Mon MD Work Phone: 0(257)060-583490 [place] [address] 01-11-2025 20:29-0400 Diastolic blood pressure 79 mm[Hg] Dr. Ian Mon MD Work Phone: 2(360)570-089090 [place] [address] 01-11-2025 20:29-0400 Heart rate 70 /min Dr. Ian Mon MD Work Phone: 0(400)712-951790 [place] [address] 01-11-2025 20:29-0400 Respiratory rate 18 /min Dr. Ian Mon MD Work Phone: 0(016)387-965390 [place] [address] 01-11-2025 20:29-0400 SaO2% (BldA) [Mass fraction] 100 % Dr. Ian Mon MD Work Phone: 4(067)991-048190 [place] [address] 01-11-2025 20:29-0400 Systolic blood pressure 120 mm[Hg] Dr. Ian Mon MD Work Phone: 4(866)599-993690 [place] [address] 01-11-2025 17:08-0400 Body height 142.[address] Ian Mon MD Work Phone: 9(711)366-667490 [place] [address] 01-11-2025 17:08-0400 Body mass index (BMI) [Ratio] 40 kg/m2 Dr. Ian Mon MD Work Phone: 8(205)401-909290 [place] [address] 01-11-2025 17:08-0400 Body weight 81.[address] Ian Mon MD Work Phone: [facility] 11-28-2024 13:07-0400 Body height 149.1 cm Tootie Podlogar REAL ESTATE LOAN PROCESSOR.CARDIAC REHABILITATION PROGRAM DIRECTOR Work Phone: [facility] 11-28-2024 13:07-0400 Body mass index (BMI) [Ratio] 35.83 kg/m2 Tootie Podlogar REAL ESTATE LOAN PROCESSOR.CARDIAC REHABILITATION PROGRAM DIRECTOR Work Phone: [facility] 11-28-2024 13:07-0400 Body temperature 98.29 [degF] Tootie Podlogar REAL ESTATE LOAN PROCESSOR.CARDIAC REHABILITATION PROGRAM DIRECTOR Work Phone: [facility] 11-28-2024 13:07-0400 Body weight 79.65 kg Tootie Podlogar REAL ESTATE LOAN PROCESSOR.CARDIAC REHABILITATION PROGRAM DIRECTOR Work Phone: [facility] 11-28-2024 13:07-0400 Diastolic blood pressure 84 mm[Hg] Tootie Podlogar REAL ESTATE LOAN PROCESSOR.CARDIAC REHABILITATION PROGRAM DIRECTOR Work Phone: [facility] 11-28-2024 13:07-0400 Heart rate 101 /min Tootie Podlogar REAL ESTATE LOAN PROCESSOR.CARDIAC REHABILITATION PROGRAM DIRECTOR Work Phone: [facility] 11-28-2024 13:07-0400 Respiratory rate 24 /min Tootie Podlogar REAL ESTATE LOAN PROCESSOR.CARDIAC REHABILITATION PROGRAM DIRECTOR Work Phone: [facility] 11-28-2024 13:07-0400 SaO2% (BldA) [Mass fraction] 94 % Tootie Podlogar REAL ESTATE LOAN PROCESSOR.CARDIAC REHABILITATION PROGRAM DIRECTOR Work Phone: [facility] 11-28-2024 13:07-0400 Systolic blood pressure 122 mm[Hg] Tootie Podlogar REAL ESTATE LOAN PROCESSOR.CARDIAC REHABILITATION PROGRAM DIRECTOR Work Phone: [facility] 11-20-2024 16:59-0500 Body mass index (BMI) [Ratio] 37.97 kg/m2 Latha Fatima REAL ESTATE LOAN PROCESSOR.CARDIAC REHABILITATION PROGRAM DIRECTOR Work Phone: [facility] 11-20-2024 16:59-0500 Body temperature 98.2 [degF] Latha Fatima REAL ESTATE LOAN PROCESSOR.CARDIAC REHABILITATION PROGRAM DIRECTOR Work Phone: [facility] 11-20-2024 16:59-0500 Body weight 79.6 kg Latha Fatima REAL ESTATE LOAN PROCESSOR.CARDIAC REHABILITATION PROGRAM DIRECTOR Work Phone: [facility] 11-20-2024 16:59-0500 Diastolic blood pressure 86 mm[Hg] Latha Fatima REAL ESTATE LOAN PROCESSOR.CARDIAC REHABILITATION PROGRAM DIRECTOR Work Phone: [facility] 11-20-2024 16:59-0500 Heart rate 100 /min Latha Fatima REAL ESTATE LOAN PROCESSOR.CARDIAC REHABILITATION PROGRAM DIRECTOR Work Phone: [facility] 11-20-2024 16:59-0500 Respiratory rate 16 /min Latha Fatima REAL ESTATE LOAN PROCESSOR.CARDIAC REHABILITATION PROGRAM DIRECTOR Work Phone: [facility] 11-20-2024 16:59-0500 SaO2% (BldA) [Mass fraction] 95 % Latha Fatima REAL ESTATE LOAN PROCESSOR.CARDIAC REHABILITATION PROGRAM DIRECTOR Work Phone: [facility] 11-20-2024 16:59-0500 Systolic blood pressure 134 mm[Hg] Latha Fatima REAL ESTATE LOAN PROCESSOR.CARDIAC REHABILITATION PROGRAM DIRECTOR Work Phone: [facility] 11-19-2024 12:04-0500 Body mass index (BMI) [Ratio] 39.5 kg/m2 Cecilia Love MD Work Phone: [facility] 11-19-2024 12:04-0500 Body temperature 97.81 [degF] Cecilia Love MD Work Phone: [facility] 11-19-2024 12:04-0500 Body weight 82.8 kg Cecilia Love MD Work Phone: [facility] 11-19-2024 12:04-0500 Diastolic blood pressure 76 mm[Hg] Cecilia Love MD Work Phone: [facility] 11-19-2024 12:04-0500 Heart rate 103 /min Cecilia Love MD Work Phone: [facility] 11-19-2024 12:04-0500 Respiratory rate 18 /min Cecilia Love MD Work Phone: [facility] 11-19-2024 12:04-0500 SaO2% (BldA) [Mass fraction] 95 % Cecilia Love MD Work Phone: [facility] 11-19-2024 12:04-0500 Systolic blood pressure 118 mm[Hg] Cecilia Love MD Work Phone: [facility] 10-26-2024 13:27-0500 Body temperature 97.8 [degF] Dr. Ian Mon MD Work Phone: [facility] 10-26-2024 13:27-0500 Diastolic blood pressure 72 mm[Hg] Dr. Ian Mon MD Work Phone: [facility] 10-26-2024 13:27-0500 Heart rate 88 /min Dr. Ian Mon MD Work Phone: 6(675)144-269790 [place] [address] 10-26-2024 13:27-0500 Respiratory rate 16 /min Dr. Ian Mon MD Work Phone: [facility] 10-26-2024 13:27-0500 SaO2% (BldA) [Mass fraction] 95 % Dr. Ian Mon MD Work Phone: [facility] 10-26-2024 13:27-0500 Systolic blood pressure 116 mm[Hg] Dr. Ian Mon MD Work Phone: [facility] 10-26-2024 05:20-0500 Body mass index (BMI) [Ratio] 38.8 kg/m2 Dr. Ian Mon MD Work Phone: [facility] 10-26-2024 05:20-0500 Body weight 78.[address] Ian Mon MD Work Phone: [facility] 10-22-2024 20:04-0500 Body mass index (BMI) [Ratio] 43.99 kg/m2 Tierney Mcclure APRN.CNP Work Phone: [facility] 10-22-2024 20:04-0500 Body temperature 100.71 [degF] Tierney Mcclure DAMARI.CARDIAC REHABILITATION PROGRAM DIRECTOR Work Phone: [facility] 10-22-2024 20:04-0500 Body weight 92.2 kg Tierneybora Mcclure APRN.CARDIAC REHABILITATION PROGRAM DIRECTOR Work Phone: [facility] 10-22-2024 20:04-0500 Diastolic blood pressure 70 mm[Hg] Tierney Ren WETZEL.CARDIAC REHABILITATION PROGRAM DIRECTOR Work Phone: [facility] 10-22-2024 20:04-0500 Heart rate 116 /min Tierneybora Mcclure APRN.CARDIAC REHABILITATION PROGRAM DIRECTOR Work Phone: [facility] 10-22-2024 20:04-0500 Respiratory rate 20 /min Tierneybora Mcclure APRN.CARDIAC REHABILITATION PROGRAM DIRECTOR Work Phone: [facility] 10-22-2024 20:04-0500 SaO2% (BldA) [Mass fraction] 94 % Tierneybora Mcclure APRN.CARDIAC REHABILITATION PROGRAM DIRECTOR Work Phone: [facility] 10-22-2024 20:04-0500 Systolic blood pressure 118 mm[Hg] Tierney Mcclure DAMARI.CARDIAC REHABILITATION PROGRAM DIRECTOR Work Phone: [facility] 10-12-2024 20:48-0500 Body temperature 98 [degF] Dr. Ian Mon MD Work Phone: [facility] 10-12-2024 20:48-0500 Diastolic blood pressure 78 mm[Hg] Dr. Ian Mon MD Work Phone: [facility] 10-12-2024 20:48-0500 Heart rate 97 /min Dr. Ian Mon MD Work Phone: [facility] 10-12-2024 20:48-0500 Respiratory rate 16 /min Dr. Ian Mon MD Work Phone: [facility] 10-12-2024 20:48-0500 SaO2% (BldA) [Mass fraction] 99 % Dr. Ian Mon MD Work Phone: [facility] 10-12-2024 20:48-0500 Systolic blood pressure 142 mm[Hg] Dr. Ian Mon MD Work Phone: [facility] 10-12-2024 17:09-0500 Body mass index (BMI) [Ratio] 36 kg/m2 Dr. Ian Mon MD Work Phone: [facility] 10-12-2024 17:09-0500 Body weight 80.[address] Ian Mon MD Work Phone: [facility] 10-10-2024 16:18-0500 Body mass index (BMI) [Ratio] 39.02 kg/m2 Tierney Mcclure APRN.CARDIAC REHABILITATION PROGRAM DIRECTOR Work Phone: [facility] 10-10-2024 16:18-0500 Body temperature 96.6 [degF] Tierney Mcclure APRN.CARDIAC REHABILITATION PROGRAM DIRECTOR Work Phone: [facility] 10-10-2024 16:18-0500 Body weight 81.8 kg Tierney Mcclure APRN.CARDIAC REHABILITATION PROGRAM DIRECTOR Work Phone: [facility] 10-10-2024 16:18-0500 Diastolic blood pressure 84 mm[Hg] Tierney Mcclure APRN.CARDIAC REHABILITATION PROGRAM DIRECTOR Work Phone: [facility] 10-10-2024 16:18-0500 Heart rate 110 /min Tierney Mcclure APRN.CARDIAC REHABILITATION PROGRAM DIRECTOR Work Phone: [facility] 10-10-2024 16:18-0500 Respiratory rate 21 /min Tierney Mcclure APRN.CARDIAC REHABILITATION PROGRAM DIRECTOR Work Phone: [facility] 10-10-2024 16:18-0500 SaO2% (BldA) [Mass fraction] 96 % Tierney Mcclure APRN.CARDIAC REHABILITATION PROGRAM DIRECTOR Work Phone: [facility] 10-10-2024 16:18-0500 Systolic blood pressure 108 mm[Hg] Tierney Mcclure APRN.CARDIAC REHABILITATION PROGRAM DIRECTOR Work Phone: [facility] 09-28-2024 12:17-0500 Body mass index (BMI) [Ratio] 35.8 kg/m2 Dr. Ian Mon MD Work Phone: 2(644)237-771490 [place] [address] 09-28-2024 12:17-0500 Body weight 80.[address] Ian Mon MD Work Phone: 8(215)551-643490 [place] [address] 09-28-2024 12:10-0500 Body temperature 97 [degF] Dr. Ian Mon MD Work Phone: 0(248)400-267990 [place] [address] 09-28-2024 12:10-0500 Diastolic blood pressure 85 mm[Hg] Dr. Ian Mon MD Work Phone: 2(974)904-548990 [place] [address] 09-28-2024 12:10-0500 Heart rate 94 /min Dr. Ian Mon MD Work Phone: 5(350)433-248890 [place] [address] 09-28-2024 12:10-0500 Respiratory rate 15 /min Dr. Ian Mon MD Work Phone: 5(090)716-835690 [place] [address] 09-28-2024 12:10-0500 SaO2% (BldA) [Mass fraction] 100 % Dr. Ian Mon MD Work Phone: 9(473)263-329190 [place] [address] 09-28-2024 12:10-0500 Systolic blood pressure 134 mm[Hg] Dr. Ian Mon MD Work Phone: 2(346)186-169890 [place] [address] 06-18-2024 15:33-0400 Body mass index (BMI) [Ratio] 37.91 kg/m2 Vivian Gray MD Work Phone: 6(085)497-064190 [place] [address] 06-18-2024 15:33-0400 Body temperature 97.2 [degF] Vivian Gray MD Work Phone: 3(197)560-221990 [place] [address] 06-18-2024 15:33-0400 Body weight 79.47 kg Vivian Gray MD Work Phone: 2(539)427-811090 [place] [address] 06-18-2024 15:33-0400 Diastolic blood pressure 85 mm[Hg] Vivian Gray MD Work Phone: 1(858)727-475090 [place] [address] 06-18-2024 15:33-0400 Heart rate 95 /min Vivian Gray MD Work Phone: [facility] 06-18-2024 15:33-0400 SaO2% (BldA) [Mass fraction] 97 % Vivian Gray MD Work Phone: [facility] 06-18-2024 15:33-0400 Systolic blood pressure 127 mm[Hg] Vivian Gray MD Work Phone: [facility] 01-06-2024 14:49-0400 Body height 144.8 cm Pacc 1 Work Phone: [facility] 01-06-2024 14:49-0400 Body temperature 96.91 [degF] Pacc 1 Work Phone: [facility] 01-06-2024 14:49-0400 Body weight 78.93 kg Pacc 1 Work Phone: [facility] 01-06-2024 14:49-0400 Diastolic blood pressure 72 mm[Hg] Pacc 1 Work Phone: [facility] 01-06-2024 14:49-0400 Heart rate 85 /min Pacc 1 Work Phone: [facility] 01-06-2024 14:49-0400 Respiratory rate 18 /min Pacc 1 Work Phone: [facility] 01-06-2024 14:49-0400 SaO2% (BldA) [Mass fraction] 98 % Pacc 1 Work Phone: [facility] 01-06-2024 14:49-0400 Systolic blood pressure 114 mm[Hg] Pacc 1 Work Phone: [facility] 12-28-2023 15:19-0400 Body temperature 97.9 [degF] Cecilia Love MD Work Phone: [facility] 12-28-2023 15:19-0400 Body weight 77.2 kg Cecilia Love MD Work Phone: [facility] 12-28-2023 15:19-0400 Diastolic blood pressure 76 mm[Hg] Cecilia Love MD Work Phone: [facility] 12-28-2023 15:19-0400 Heart rate 86 /min Cecilia Love MD Work Phone: [facility] 12-28-2023 15:19-0400 Respiratory rate 18 /min Cecilia Love MD Work Phone: [facility] 12-28-2023 15:19-0400 SaO2% (BldA) [Mass fraction] 97 % Cecilia Love MD Work Phone: [facility] 12-28-2023 15:19-0400 Systolic blood pressure 118 mm[Hg] Cecilia Love MD Work Phone: [facility] 12-17-2023 12:30-0400 Body height 149.86 cm [facility] 12-17-2023 12:30-0400 Body mass index (BMI) [Ratio] 34.6 kg/m2 [facility] 12-17-2023 12:30-0400 Body temperature 98.1 [degF] [facility] 12-17-2023 12:30-0400 Body weight 77.7 kg [facility] 12-17-2023 12:30-0400 Diastolic blood pressure 74 mm[Hg] [facility] 12-17-2023 12:30-0400 Heart rate 76 /min [facility] 12-17-2023 12:30-0400 Respiratory rate 16 /min [facility] 12-17-2023 12:30-0400 SaO2% (BldA) [Mass fraction] 98 % [facility] 12-17-2023 12:30-0400 Systolic blood pressure 99 mm[Hg] [facility] 12-10-2023 13:06-0400 Body temperature 97.59 [degF] Latha Fatima REAL ESTATE LOAN PROCESSOR.CARDIAC REHABILITATION PROGRAM DIRECTOR Work Phone: [facility] 12-10-2023 13:06-0400 Body weight 76.7 kg Latha Fatima REAL ESTATE LOAN PROCESSOR.CARDIAC REHABILITATION PROGRAM DIRECTOR Work Phone: [facility] 12-10-2023 13:06-0400 Diastolic blood pressure 64 mm[Hg] Latha Fatima REAL ESTATE LOAN PROCESSOR.CARDIAC REHABILITATION PROGRAM DIRECTOR Work Phone: [facility] 12-10-2023 13:06-0400 Heart rate 93 /min Latha Fatima REAL ESTATE LOAN PROCESSOR.CARDIAC REHABILITATION PROGRAM DIRECTOR Work Phone: [facility] 12-10-2023 13:06-0400 Respiratory rate 19 /min Latha Fatima REAL ESTATE LOAN PROCESSOR.CARDIAC REHABILITATION PROGRAM DIRECTOR Work Phone: [facility] 12-10-2023 13:06-0400 SaO2% (BldA) [Mass fraction] 97 % Latha Fatima REAL ESTATE LOAN PROCESSOR.CARDIAC REHABILITATION PROGRAM DIRECTOR Work Phone: [facility] 12-10-2023 13:06-0400 Systolic blood pressure 88 mm[Hg] Latha Fatima REAL ESTATE LOAN PROCESSOR.CARDIAC REHABILITATION PROGRAM DIRECTOR Work Phone: [facility] 10-26-2023 13:39-0500 Body weight 77.11 kg Tootie Podlogar REAL ESTATE LOAN PROCESSOR.CARDIAC REHABILITATION PROGRAM DIRECTOR Work Phone: [facility] 10-26-2023 13:39-0500 Diastolic blood pressure 64 mm[Hg] Tootie Podlogar REAL ESTATE LOAN PROCESSOR.CARDIAC REHABILITATION PROGRAM DIRECTOR Work Phone: [facility] 10-26-2023 13:39-0500 Heart rate 82 /min Tootie Podlogar REAL ESTATE LOAN PROCESSOR.CARDIAC REHABILITATION PROGRAM DIRECTOR Work Phone: [facility] 10-26-2023 13:39-0500 Respiratory rate 18 /min Tootie Podlogar REAL ESTATE LOAN PROCESSOR.CARDIAC REHABILITATION PROGRAM DIRECTOR Work Phone: [facility] 10-26-2023 13:39-0500 SaO2% (BldA) [Mass fraction] 99 % Tootie Podlogar REAL ESTATE LOAN PROCESSOR.CARDIAC REHABILITATION PROGRAM DIRECTOR Work Phone: [facility] 10-26-2023 13:39-0500 Systolic blood pressure 88 mm[Hg] Tootie Podlogar REAL ESTATE LOAN PROCESSOR.CARDIAC REHABILITATION PROGRAM DIRECTOR Work Phone: [facility] 10-10-2023 14:17-0500 Body height 144.78 cm [facility] 10-10-2023 14:17-0500 Body mass index (BMI) [Ratio] 37 kg/m2 [facility] 10-10-2023 14:17-0500 Body temperature 97.8 [degF] [facility] 10-10-2023 14:17-0500 Body weight 77.7 kg [facility] 10-10-2023 14:17-0500 Diastolic blood pressure 63 mm[Hg] [facility] 10-10-2023 14:17-0500 Heart rate 103 /min [facility] 10-10-2023 14:17-0500 Respiratory rate 16 /min [facility] 10-10-2023 14:17-0500 SaO2% (BldA) [Mass fraction] 100 % [facility] 10-10-2023 14:17-0500 Systolic blood pressure 123 mm[Hg] [facility] 10-03-2023 22:51-0500 Heart rate 83 /min [facility] 10-03-2023 22:51-0500 Respiratory rate 16 /min [facility] 10-03-2023 22:51-0500 SaO2% (BldA) [Mass fraction] 98 % [facility] 10-03-2023 18:42-0500 Body height 149.86 cm [facility] 10-03-2023 18:42-0500 Body mass index (BMI) [Ratio] 34.6 kg/m2 [facility] 10-03-2023 18:42-0500 Body temperature 97.5 [degF] [facility] 10-03-2023 18:42-0500 Body weight 77.79 kg [facility] 10-03-2023 18:42-0500 Diastolic blood pressure 78 mm[Hg] [facility] 10-03-2023 18:42-0500 Systolic blood pressure 122 mm[Hg] [facility] 08-22-2023 17:54-0500 Body temperature 97.7 [degF] Tierney Mcclure APRN.CARDIAC REHABILITATION PROGRAM DIRECTOR Work Phone: [facility] 08-22-2023 17:54-0500 Body weight 78.02 kg Tierney Mcclure APRN.CARDIAC REHABILITATION PROGRAM DIRECTOR Work Phone: [facility] 08-22-2023 17:54-0500 Diastolic blood pressure 72 mm[Hg] Tierney Mcclure APRN.CARDIAC REHABILITATION PROGRAM DIRECTOR Work Phone: [facility] 08-22-2023 17:54-0500 Heart rate 92 /min Tierney Mcclure APRN.CARDIAC REHABILITATION PROGRAM DIRECTOR Work Phone: [facility] 08-22-2023 17:54-0500 Respiratory rate 16 /min Tierney Mcclure APRN.CARDIAC REHABILITATION PROGRAM DIRECTOR Work Phone: [facility] 08-22-2023 17:54-0500 SaO2% (BldA) [Mass fraction] 98 % Tierney Mcclure APRN.CARDIAC REHABILITATION PROGRAM DIRECTOR Work Phone: [facility] 08-22-2023 17:54-0500 Systolic blood pressure 118 mm[Hg] Tierney Mcclure APRN.CARDIAC REHABILITATION PROGRAM DIRECTOR Work Phone: [facility] 08-06-2023 17:07-0500 Body height 137.16 cm [facility] 08-06-2023 17:07-0500 Body mass index (BMI) [Ratio] 42 kg/m2 [facility] 08-06-2023 17:07-0500 Body temperature 98.2 [degF] [facility] 08-06-2023 17:07-0500 Body weight 79.2 kg [facility] 08-06-2023 17:07-0500 Diastolic blood pressure 72 mm[Hg] [facility] 08-06-2023 17:07-0500 Heart rate 97 /min [facility] 08-06-2023 17:07-0500 Respiratory rate 14 /min [facility] 08-06-2023 17:07-0500 SaO2% (BldA) [Mass fraction] 98 % [facility] 08-06-2023 17:07-0500 Systolic blood pressure 109 mm[Hg] [facility] 06-01-2023 12:13-0400 Heart rate 103 /min [facility] 06-01-2023 12:13-0400 Respiratory rate 18 /min [facility] 06-01-2023 11:52-0400 Body height 137.16 cm [facility] 06-01-2023 11:52-0400 Body mass index (BMI) [Ratio] 39.7 kg/m2 [facility] 06-01-2023 11:52-0400 Body temperature 97.3 [degF] [facility] 06-01-2023 11:52-0400 Body weight 74.84 kg [facility] 06-01-2023 11:52-0400 Diastolic blood pressure 83 mm[Hg] [facility] 06-01-2023 11:52-0400 SaO2% (BldA) [Mass fraction] 95 % [facility] 06-01-2023 11:52-0400 Systolic blood pressure 109 mm[Hg] [facility] 04-04-2023 14:48-0400 Heart rate 93 /min [facility] 04-04-2023 14:48-0400 Respiratory rate 18 /min [facility] 04-04-2023 14:01-0400 Body height 149.86 cm [facility] 04-04-2023 14:01-0400 Body mass index (BMI) [Ratio] 34.7 kg/m2 [facility] 04-04-2023 14:01-0400 Body temperature 97.8 [degF] [facility] 04-04-2023 14:01-0400 Body weight 78.01 kg [facility] 04-04-2023 14:01-0400 Diastolic blood pressure 84 mm[Hg] [facility] 04-04-2023 14:01-0400 SaO2% (BldA) [Mass fraction] 95 % [facility] 04-04-2023 14:01-0400 Systolic blood pressure 119 mm[Hg] [facility] 01-27-2023 11:34-0400 Body temperature 98.4 [degF] Cecilia Love MD Work Phone: [facility] 01-27-2023 11:34-0400 Body weight 78.2 kg Cecilia Love MD Work Phone: [facility] 01-27-2023 11:34-0400 Diastolic blood pressure 74 mm[Hg] Cecilia Love MD Work Phone: [facility] 01-27-2023 11:34-0400 Heart rate 93 /min Cecilia Love MD Work Phone: [facility] 01-27-2023 11:34-0400 Respiratory rate 18 /min Cecilia Love MD Work Phone: [facility] 01-27-2023 11:34-0400 SaO2% (BldA) [Mass fraction] 97 % Cecilia Love MD Work Phone: [facility] 01-27-2023 11:34-0400 Systolic blood pressure 110 mm[Hg] Cecilia Love MD Work Phone: [facility] 12-01-2022 18:40-0400 Body temperature 98.01 [degF] Tootie Podlogar REAL ESTATE LOAN PROCESSOR.CARDIAC REHABILITATION PROGRAM DIRECTOR Work Phone: [facility] 12-01-2022 18:40-0400 Body weight 75.3 kg Tootie Podlogar REAL ESTATE LOAN PROCESSOR.CARDIAC REHABILITATION PROGRAM DIRECTOR Work Phone: [facility] 12-01-2022 18:40-0400 Diastolic blood pressure 78 mm[Hg] Tootie Podlogar REAL ESTATE LOAN PROCESSOR.CARDIAC REHABILITATION PROGRAM DIRECTOR Work Phone: [facility] 12-01-2022 18:40-0400 Heart rate 87 /min Tootie Podlogar REAL ESTATE LOAN PROCESSOR.CARDIAC REHABILITATION PROGRAM DIRECTOR Work Phone: [facility] 12-01-2022 18:40-0400 Respiratory rate 18 /min Tootie Podlogar REAL ESTATE LOAN PROCESSOR.CARDIAC REHABILITATION PROGRAM DIRECTOR Work Phone: [facility] 12-01-2022 18:40-0400 SaO2% (BldA) [Mass fraction] 100 % Tootie Podlogar REAL ESTATE LOAN PROCESSOR.CARDIAC REHABILITATION PROGRAM DIRECTOR Work Phone: [facility] 12-01-2022 18:40-0400 Systolic blood pressure 112 mm[Hg] Tootie Podlogar REAL ESTATE LOAN PROCESSOR.CARDIAC REHABILITATION PROGRAM DIRECTOR Work Phone: [facility] 11-15-2022 14:56-0500 Body temperature 97.81 [degF] MARJAN Medeiros PA-C Work Phone: [facility] 11-15-2022 14:56-0500 Body weight 73.94 kg NA Medeiros PA-C Work Phone: [facility] 11-15-2022 14:56-0500 Diastolic blood pressure 62 mm[Hg] NA Medeiros PA-C Work Phone: [facility] 11-15-2022 14:56-0500 Heart rate 86 /min NA Medeiros PA-C Work Phone: [facility] 11-15-2022 14:56-0500 SaO2% (BldA) [Mass fraction] 97 % NA Medeiros PA-C Work Phone: [facility] 11-15-2022 14:56-0500 Systolic blood pressure 110 mm[Hg] NA Medeiros PA-C Work Phone: [facility] 11-14-2022 14:30-0500 Body temperature 98.2 [degF] Abe Zheng REAL ESTATE LOAN PROCESSOR.CARDIAC REHABILITATION PROGRAM DIRECTOR Work Phone: [facility] 11-14-2022 14:30-0500 Body weight 74.3 kg Abe Zheng REAL ESTATE LOAN PROCESSOR.CARDIAC REHABILITATION PROGRAM DIRECTOR Work Phone: [facility] 11-14-2022 14:30-0500 Diastolic blood pressure 68 mm[Hg] Abe Zheng REAL ESTATE LOAN PROCESSOR.CARDIAC REHABILITATION PROGRAM DIRECTOR Work Phone: [facility] 11-14-2022 14:30-0500 Heart rate 100 /min Abe Zheng REAL ESTATE LOAN PROCESSOR.CARDIAC REHABILITATION PROGRAM DIRECTOR Work Phone: [facility] 11-14-2022 14:30-0500 Respiratory rate 18 /min Abe Zheng REAL ESTATE LOAN PROCESSOR.CARDIAC REHABILITATION PROGRAM DIRECTOR Work Phone: [facility] 11-14-2022 14:30-0500 SaO2% (BldA) [Mass fraction] 97 % Abe Zheng REAL ESTATE LOAN PROCESSOR.CARDIAC REHABILITATION PROGRAM DIRECTOR Work Phone: [facility] 11-14-2022 14:30-0500 Systolic blood pressure 116 mm[Hg] Abe Zheng REAL ESTATE LOAN PROCESSOR.CARDIAC REHABILITATION PROGRAM DIRECTOR Work Phone: [facility] 10-23-2022 03:57-0500 Diastolic blood pressure 69 mm[Hg] [facility] 10-23-2022 03:57-0500 Heart rate 118 /min [facility] 10-23-2022 03:57-0500 Respiratory rate 16 /min [facility] 10-23-2022 03:57-0500 SaO2% (BldA) [Mass fraction] 92 % [facility] 10-23-2022 03:57-0500 Systolic blood pressure 111 mm[Hg] [facility] 10-22-2022 18:54-0500 Body height 149.86 cm [facility] 10-22-2022 18:54-0500 Body mass index (BMI) [Ratio] 33.7 kg/m2 [facility] 10-22-2022 18:54-0500 Body temperature 97.5 [degF] [facility] 10-22-2022 18:54-0500 Body weight 75.74 kg [facility] 10-14-2022 11:42-0500 Body temperature 98.71 [degF] Martine Athy PA-C Work Phone: [facility] 10-14-2022 11:42-0500 Body weight 76.02 kg Martine Athy PA-C Work Phone: [facility] 10-14-2022 11:42-0500 Diastolic blood pressure 70 mm[Hg] Maritne Athy PA-C Work Phone: [facility] 10-14-2022 11:42-0500 Heart rate 95 /min Martine Athy PA-C Work Phone: [facility] 10-14-2022 11:42-0500 Respiratory rate 18 /min Martine Athy PA-C Work Phone: [facility] 10-14-2022 11:42-0500 SaO2% (BldA) [Mass fraction] 97 % Martine Athy PA-C Work Phone: [facility] 10-14-2022 11:42-0500 Systolic blood pressure 120 mm[Hg] Martine Athy PA-C Work Phone: [facility] 10-13-2022 13:53-0500 Body weight 76.2 kg Janine Tavarez MD Work Phone: [facility] 10-13-2022 13:53-0500 Diastolic blood pressure 62 mm[Hg] Janine Tavarez MD Work Phone: [facility] 10-13-2022 13:53-0500 Systolic blood pressure 110 mm[Hg] Janine Tavarez MD Work Phone: [facility] 10-02-2022 13:20-0500 Respiratory rate 16 /min [facility] 10-02-2022 12:49-0500 Body height 149.86 cm [facility] Work Phone: 10-02-2022 12:49-0500 Body mass index (BMI) [Ratio] 31.8 kg/m2 [facility] 10-02-2022 12:49-0500 Body temperature 97 [degF] [facility] 10-02-2022 12:49-0500 Body weight 71.66 kg [facility] 10-02-2022 12:49-0500 Diastolic blood pressure 78 mm[Hg] [facility] 10-02-2022 12:49-0500 Heart rate 86 /min [facility] 10-02-2022 12:49-0500 SaO2% (BldA) [Mass fraction] 100 % [facility] 10-02-2022 12:49-0500 Systolic blood pressure 140 mm[Hg] [facility] 08-20-2022 10:24-0500 Body temperature 97.39 [degF] Abe Calzada REAL ESTATE LOAN PROCESSOR.CARDIAC REHABILITATION PROGRAM DIRECTOR Work Phone: [facility] 08-20-2022 10:24-0500 Body weight 75.39 kg Abe Calzada REAL ESTATE LOAN PROCESSOR.CARDIAC REHABILITATION PROGRAM DIRECTOR Work Phone: [facility] 08-20-2022 10:24-0500 Diastolic blood pressure 66 mm[Hg] Abe Calzada REAL ESTATE LOAN PROCESSOR.CARDIAC REHABILITATION PROGRAM DIRECTOR Work Phone: [facility] 08-20-2022 10:24-0500 Heart rate 75 /min Abe Calzada REAL ESTATE LOAN PROCESSOR.CARDIAC REHABILITATION PROGRAM DIRECTOR Work Phone: [facility] 08-20-2022 10:24-0500 Respiratory rate 21 /min Abe Zheng REAL ESTATE LOAN PROCESSOR.CARDIAC REHABILITATION PROGRAM DIRECTOR Work Phone: [facility] 08-20-2022 10:24-0500 SaO2% (BldA) [Mass fraction] 98 % Abe Zheng REAL ESTATE LOAN PROCESSOR.CARDIAC REHABILITATION PROGRAM DIRECTOR Work Phone: [facility] 08-20-2022 10:24-0500 Systolic blood pressure 110 mm[Hg] Abe Zheng REAL ESTATE LOAN PROCESSOR.CARDIAC REHABILITATION PROGRAM DIRECTOR Work Phone: [facility] 08-11-2022 14:14-0500 Body height 149.9 cm Vivian Gray MD Work Phone: [facility] 08-11-2022 14:14-0500 Body temperature 97.11 [degF] Vivian Gray MD Work Phone: [facility] 08-11-2022 14:14-0500 Body weight 76.3 kg Vivian Gray MD Work Phone: [facility] 08-11-2022 14:14-0500 Diastolic blood pressure 72 mm[Hg] Vivian Gray MD Work Phone: [facility] 08-11-2022 14:14-0500 Heart rate 82 /min Vivian Gray MD Work Phone: [facility] 08-11-2022 14:14-0500 SaO2% (BldA) [Mass fraction] 97 % Vivian Gray MD Work Phone: [facility] 08-11-2022 14:14-0500 Systolic blood pressure 118 mm[Hg] Vivian Gray MD Work Phone: [facility] 08-02-2022 15:26-0500 Body height 151.1 cm Alyssa Thomaston REAL ESTATE LOAN PROCESSOR.CARDIAC REHABILITATION PROGRAM DIRECTOR Work Phone: [facility] 08-02-2022 15:26-0500 Body weight 75.48 kg Alyssa Thomaston REAL ESTATE LOAN PROCESSOR.CARDIAC REHABILITATION PROGRAM DIRECTOR Work Phone: [facility] 08-02-2022 15:26-0500 Diastolic blood pressure 76 mm[Hg] Alyssa Jerome REAL ESTATE LOAN PROCESSOR.CARDIAC REHABILITATION PROGRAM DIRECTOR Work Phone: [facility] 08-02-2022 15:26-0500 Systolic blood pressure 110 mm[Hg] Alyssa Thomaston REAL ESTATE LOAN PROCESSOR.CARDIAC REHABILITATION PROGRAM DIRECTOR Work Phone: [facility] 07-31-2022 13:28-0500 Body temperature 97.9 [degF] Cecilia Love MD Work Phone: [facility] 07-31-2022 13:28-0500 Body weight 75.3 kg Cecilia Love MD Work Phone: [facility] 07-31-2022 13:28-0500 Diastolic blood pressure 72 mm[Hg] Cecilia oLve MD Work Phone: [facility] 07-31-2022 13:28-0500 Heart rate 90 /min Cecilia Love MD Work Phone: [facility] 07-31-2022 13:28-0500 Respiratory rate 18 /min Cecilia Love MD Work Phone: [facility] 07-31-2022 13:28-0500 SaO2% (BldA) [Mass fraction] 97 % Cecilia Love MD Work Phone: [facility] 07-31-2022 13:28-0500 Systolic blood pressure 124 mm[Hg] Cecilia Love MD Work Phone: [facility] 07-28-2022 11:19-0500 Body weight 75.03 kg Tootie Podlogar REAL ESTATE LOAN PROCESSOR.CARDIAC REHABILITATION PROGRAM DIRECTOR Work Phone: [facility] 07-28-2022 11:19-0500 Diastolic blood pressure 74 mm[Hg] Tootie Podlogar REAL ESTATE LOAN PROCESSOR.CARDIAC REHABILITATION PROGRAM DIRECTOR Work Phone: [facility] 07-28-2022 11:19-0500 Heart rate 72 /min Tootie Podlogar REAL ESTATE LOAN PROCESSOR.CARDIAC REHABILITATION PROGRAM DIRECTOR Work Phone: [facility] 07-28-2022 11:19-0500 Respiratory rate 18 /min Tootie Podlogar REAL ESTATE LOAN PROCESSOR.CARDIAC REHABILITATION PROGRAM DIRECTOR Work Phone: [facility] 07-28-2022 11:19-0500 SaO2% (BldA) [Mass fraction] 98 % Tootie Podlogar REAL ESTATE LOAN PROCESSOR.CARDIAC REHABILITATION PROGRAM DIRECTOR Work Phone: [facility] 07-28-2022 11:19-0500 Systolic blood pressure 118 mm[Hg] Tootie Podlogar REAL ESTATE LOAN PROCESSOR.CARDIAC REHABILITATION PROGRAM DIRECTOR Work Phone: [facility] 06-23-2022 14:13-0400 Body temperature 98.49 [degF] Tootie Podlogar REAL ESTATE LOAN PROCESSOR.CARDIAC REHABILITATION PROGRAM DIRECTOR Work Phone: [facility] 06-23-2022 14:13-0400 Body weight 72.85 kg Tootie Podlogar REAL ESTATE LOAN PROCESSOR.CARDIAC REHABILITATION PROGRAM DIRECTOR Work Phone: [facility] 06-23-2022 14:13-0400 Diastolic blood pressure 62 mm[Hg] Tootie Podlogar REAL ESTATE LOAN PROCESSOR.CARDIAC REHABILITATION PROGRAM DIRECTOR Work Phone: [facility] 06-23-2022 14:13-0400 Heart rate 94 /min Tootie Podlogar REAL ESTATE LOAN PROCESSOR.CARDIAC REHABILITATION PROGRAM DIRECTOR Work Phone: [facility] 06-23-2022 14:13-0400 Respiratory rate 20 /min Tootie Podlogar REAL ESTATE LOAN PROCESSOR.CARDIAC REHABILITATION PROGRAM DIRECTOR Work Phone: [facility] 06-23-2022 14:13-0400 SaO2% (BldA) [Mass fraction] 95 % Tootie Podlogar REAL ESTATE LOAN PROCESSOR.CARDIAC REHABILITATION PROGRAM DIRECTOR Work Phone: [facility] 06-23-2022 14:13-0400 Systolic blood pressure 106 mm[Hg] Tootie Podlogar REAL ESTATE LOAN PROCESSOR.CARDIAC REHABILITATION PROGRAM DIRECTOR Work Phone: [facility] 06-19-2022 16:09-0400 Heart rate 79 /min [facility] Work Phone: 06-19-2022 16:09-0400 Respiratory rate 14 /min [facility] Work Phone: 06-19-2022 16:09-0400 SaO2% (BldA) [Mass fraction] 97 % [facility] Work Phone: 06-19-2022 14:57-0400 Body temperature 97.8 [degF] [facility] Work Phone: 06-19-2022 14:57-0400 Diastolic blood pressure 84 mm[Hg] [facility] Work Phone: 06-19-2022 14:57-0400 Systolic blood pressure 129 mm[Hg] [facility] Work Phone: 06-19-2022 14:54-0400 Body height 149.86 cm [facility] Work Phone: 06-19-2022 14:54-0400 Body mass index (BMI) [Ratio] 32.7 kg/m2 [facility] Work Phone: 06-19-2022 14:54-0400 Body weight 73.48 kg [facility] Work Phone: 06-17-2022 15:12-0400 Body height 144.8 cm Jose Bryant MD Work Phone: [facility] 06-17-2022 15:12-0400 Body weight 73.48 kg Jose Bryant MD Work Phone: [facility] 06-07-2022 15:14-0400 Body temperature 98.29 [degF] Abe Calzada REAL ESTATE LOAN PROCESSOR.CARDIAC REHABILITATION PROGRAM DIRECTOR Work Phone: [facility] 06-07-2022 15:14-0400 Body weight 75.75 kg Abe Calzada REAL ESTATE LOAN PROCESSOR.CARDIAC REHABILITATION PROGRAM DIRECTOR Work Phone: [facility] 06-07-2022 15:14-0400 Diastolic blood pressure 70 mm[Hg] Abe Calzada REAL ESTATE LOAN PROCESSOR.CARDIAC REHABILITATION PROGRAM DIRECTOR Work Phone: [facility] 06-07-2022 15:14-0400 Heart rate 94 /min Abe Calzada REAL ESTATE LOAN PROCESSOR.CARDIAC REHABILITATION PROGRAM DIRECTOR Work Phone: [facility] 06-07-2022 15:14-0400 Respiratory rate 18 /min Abe Calzada REAL ESTATE LOAN PROCESSOR.CARDIAC REHABILITATION PROGRAM DIRECTOR Work Phone: [facility] 06-07-2022 15:14-0400 SaO2% (BldA) [Mass fraction] 97 % Abe Calzada REAL ESTATE LOAN PROCESSOR.CARDIAC REHABILITATION PROGRAM DIRECTOR Work Phone: [facility] 06-07-2022 15:14-0400 Systolic blood pressure 110 mm[Hg] Abe Calzada REAL ESTATE LOAN PROCESSOR.CARDIAC REHABILITATION PROGRAM DIRECTOR Work Phone: [facility] 05-05-2022 14:52-0400 Body temperature 98.29 [degF] Lia Eric REAL ESTATE LOAN PROCESSOR.CARDIAC REHABILITATION PROGRAM DIRECTOR Work Phone: [facility] 05-05-2022 14:52-0400 Body weight 73.48 kg Lia Eric REAL ESTATE LOAN PROCESSOR.CARDIAC REHABILITATION PROGRAM DIRECTOR Work Phone: [facility] 05-05-2022 14:52-0400 Diastolic blood pressure 60 mm[Hg] Lia Eric REAL ESTATE LOAN PROCESSOR.CARDIAC REHABILITATION PROGRAM DIRECTOR Work Phone: [facility] 05-05-2022 14:52-0400 Heart rate 90 /min Lia Eric REAL ESTATE LOAN PROCESSOR.CARDIAC REHABILITATION PROGRAM DIRECTOR Work Phone: [facility] 05-05-2022 14:52-0400 Respiratory rate 16 /min Lia Eric REAL ESTATE LOAN PROCESSOR.CARDIAC REHABILITATION PROGRAM DIRECTOR Work Phone: [facility] 05-05-2022 14:52-0400 SaO2% (BldA) [Mass fraction] 98 % Lia Eric REAL ESTATE LOAN PROCESSOR.CARDIAC REHABILITATION PROGRAM DIRECTOR Work Phone: [facility] 05-05-2022 14:52-0400 Systolic blood pressure 104 mm[Hg] Lia Eric REAL ESTATE LOAN PROCESSOR.CARDIAC REHABILITATION PROGRAM DIRECTOR Work Phone: [facility] 04-19-2022 16:36-0400 Body temperature 98.1 [degF] Lia Eric REAL ESTATE LOAN PROCESSOR.CARDIAC REHABILITATION PROGRAM DIRECTOR Work Phone: [facility] 04-19-2022 16:36-0400 Body weight 74.03 kg Lia Eric REAL ESTATE LOAN PROCESSOR.CARDIAC REHABILITATION PROGRAM DIRECTOR Work Phone: [facility] 04-19-2022 16:36-0400 Diastolic blood pressure 80 mm[Hg] Lia Eric REAL ESTATE LOAN PROCESSOR.CARDIAC REHABILITATION PROGRAM DIRECTOR Work Phone: [facility] 04-19-2022 16:36-0400 Heart rate 97 /min Lia Eric REAL ESTATE LOAN PROCESSOR.CARDIAC REHABILITATION PROGRAM DIRECTOR Work Phone: [facility] 04-19-2022 16:36-0400 Respiratory rate 20 /min Lia Eric REAL ESTATE LOAN PROCESSOR.CARDIAC REHABILITATION PROGRAM DIRECTOR Work Phone: [facility] 04-19-2022 16:36-0400 SaO2% (BldA) [Mass fraction] 98 % Lia Eric REAL ESTATE LOAN PROCESSOR.CARDIAC REHABILITATION PROGRAM DIRECTOR Work Phone: [facility] 04-19-2022 16:36-0400 Systolic blood pressure 108 mm[Hg] Lia Eric REAL ESTATE LOAN PROCESSOR.CARDIAC REHABILITATION PROGRAM DIRECTOR Work Phone: [facility] 01-26-2022 13:10-0400 Body height 137.16 cm [facility] Work Phone: 01-26-2022 13:10-0400 Body mass index (BMI) [Ratio] 40 kg/m2 [facility] Work Phone: 01-26-2022 13:10-0400 Body temperature 98.7 [degF] [facility] Work Phone: 01-26-2022 13:10-0400 Body weight 75.29 kg [facility] Work Phone: 01-26-2022 13:10-0400 Diastolic blood pressure 69 mm[Hg] [facility] Work Phone: 01-26-2022 13:10-0400 Heart rate 89 /min [facility] Work Phone: 01-26-2022 13:10-0400 Respiratory rate 16 /min [facility] Work Phone: 01-26-2022 13:10-0400 SaO2% (BldA) [Mass fraction] 97 % [facility] Work Phone: 01-26-2022 13:10-0400 Systolic blood pressure 117 mm[Hg] [facility] Work Phone: 01-26-2022 12:42-0400 Body temperature 98.2 [degF] Ian Pendlebury REAL ESTATE LOAN PROCESSOR.CARDIAC REHABILITATION PROGRAM DIRECTOR Work Phone: [facility] 01-26-2022 12:42-0400 Body weight 73.48 [facility] REAL ESTATE LOAN PROCESSOR.CARDIAC REHABILITATION PROGRAM DIRECTOR Work Phone: [facility] 01-26-2022 12:42-0400 Diastolic blood pressure 64 mm[Hg] Ian Pendlebury REAL ESTATE LOAN PROCESSOR.CARDIAC REHABILITATION PROGRAM DIRECTOR Work Phone: [facility] 01-26-2022 12:42-0400 Heart rate 90 /min Ian Hodgebury REAL ESTATE LOAN PROCESSOR.CARDIAC REHABILITATION PROGRAM DIRECTOR Work Phone: [facility] 01-26-2022 12:42-0400 Respiratory rate 16 /min [facility] REAL ESTATE LOAN PROCESSOR.CARDIAC REHABILITATION PROGRAM DIRECTOR Work Phone: [facility] 01-26-2022 12:42-0400 SaO2% (BldA) [Mass fraction] 97 % [facility] REAL ESTATE LOAN PROCESSOR.CARDIAC REHABILITATION PROGRAM DIRECTOR Work Phone: [facility] 01-26-2022 12:42-0400 Systolic blood pressure 106 mm[Hg] Ian Hodgebury REAL ESTATE LOAN PROCESSOR.CARDIAC REHABILITATION PROGRAM DIRECTOR Work Phone: [facility] 01-14-2022 17:38-0400 Body temperature 98.2 [degF] Latha Fatima REAL ESTATE LOAN PROCESSOR.CARDIAC REHABILITATION PROGRAM DIRECTOR Work Phone: [facility] 01-14-2022 17:38-0400 Body weight 73.66 kg Latha Fatima REAL ESTATE LOAN PROCESSOR.CARDIAC REHABILITATION PROGRAM DIRECTOR Work Phone: [facility] 01-14-2022 17:38-0400 Diastolic blood pressure 70 mm[Hg] Latha Fatima REAL ESTATE LOAN PROCESSOR.CARDIAC REHABILITATION PROGRAM DIRECTOR Work Phone: [facility] 01-14-2022 17:38-0400 Heart rate 100 /min Latha Fatima REAL ESTATE LOAN PROCESSOR.CARDIAC REHABILITATION PROGRAM DIRECTOR Work Phone: [facility] 01-14-2022 17:38-0400 Respiratory rate 28 /min Latha Fatima REAL ESTATE LOAN PROCESSOR.CARDIAC REHABILITATION PROGRAM DIRECTOR Work Phone: [facility] 01-14-2022 17:38-0400 SaO2% (BldA) [Mass fraction] 96 % Latha Fatima REAL ESTATE LOAN PROCESSOR.CARDIAC REHABILITATION PROGRAM DIRECTOR Work Phone: [facility] 01-14-2022 17:38-0400 Systolic blood pressure 100 mm[Hg] Latha Fatima REAL ESTATE LOAN PROCESSOR.CARDIAC REHABILITATION PROGRAM DIRECTOR Work Phone: [facility] 01-08-2022 13:36-0400 Body temperature 98.1 [degF] Sabrina Praisler-Wood REAL ESTATE LOAN PROCESSOR.CARDIAC REHABILITATION PROGRAM DIRECTOR Work Phone: [facility] 01-08-2022 13:36-0400 Body weight 75.12 kg Sabrina Praisler-Wood REAL ESTATE LOAN PROCESSOR.CARDIAC REHABILITATION PROGRAM DIRECTOR Work Phone: [facility] 01-08-2022 13:36-0400 Diastolic blood pressure 74 mm[Hg] Sabrina Praisler-Wood REAL ESTATE LOAN PROCESSOR.CARDIAC REHABILITATION PROGRAM DIRECTOR Work Phone: [facility] 01-08-2022 13:36-0400 Heart rate 82 /min Sabrina Praisler-Wood REAL ESTATE LOAN PROCESSOR.CARDIAC REHABILITATION PROGRAM DIRECTOR Work Phone: [facility] 01-08-2022 13:36-0400 Respiratory rate 14 /min Sabrina Praisler-Wood REAL ESTATE LOAN PROCESSOR.CARDIAC REHABILITATION PROGRAM DIRECTOR Work Phone: [facility] 01-08-2022 13:36-0400 SaO2% (BldA) [Mass fraction] 98 % Sabrina Praisler-Wood REAL ESTATE LOAN PROCESSOR.CARDIAC REHABILITATION PROGRAM DIRECTOR Work Phone: [facility] 01-08-2022 13:36-0400 Systolic blood pressure 110 mm[Hg] Sabrina Praisler-Wood REAL ESTATE LOAN PROCESSOR.CARDIAC REHABILITATION PROGRAM DIRECTOR Work Phone: [facility] 12-09-2021 19:03-0400 Diastolic blood pressure 78 mm[Hg] [facility] Work Phone: 12-09-2021 19:03-0400 Heart rate 89 /min [facility] Work Phone: 12-09-2021 19:03-0400 Respiratory rate 15 /min [facility] Work Phone: 12-09-2021 19:03-0400 SaO2% (BldA) [Mass fraction] 98 % [facility] Work Phone: 12-09-2021 19:03-0400 Systolic blood pressure 119 mm[Hg] [facility] Work Phone: 12-09-2021 15:17-0400 Body height 137.16 cm [facility] Work Phone: 12-09-2021 15:17-0400 Body mass index (BMI) [Ratio] 39.2 kg/m2 [facility] Work Phone: 12-09-2021 15:17-0400 Body temperature 96.2 [degF] [facility] Work Phone: 12-09-2021 15:17-0400 Body weight 73.9 kg [facility] Work Phone: 12-07-2021 14:20-0400 Body weight 74.66 kg Shaniqua Beckford MD Work Phone: [facility] 12-07-2021 14:20-0400 Diastolic blood pressure 66 mm[Hg] Shaniqua Beckford MD Work Phone: [facility] 12-07-2021 14:20-0400 Heart rate 94 /min Shaniqua Beckford MD Work Phone: [facility] 12-07-2021 14:20-0400 Respiratory rate 18 /min Shaniqua Beckford MD Work Phone: [facility] 12-07-2021 14:20-0400 SaO2% (BldA) [Mass fraction] 97 % Shaniqua Beckford MD Work Phone: [facility] 12-07-2021 14:20-0400 Systolic blood pressure 128 mm[Hg] Shaniqua Beckford MD Work Phone: [facility] 09-21-2021 10:57-0500 Heart rate 84 /min [facility] Work Phone: 09-21-2021 10:57-0500 Respiratory rate 16 /min [facility] Work Phone: 09-21-2021 10:57-0500 SaO2% (BldA) [Mass fraction] 99 % [facility] Work Phone: 09-21-2021 08:08-0500 Body mass index (BMI) [Ratio] 39.3 kg/m2 [facility] Work Phone: 09-21-2021 08:08-0500 Body temperature 97.2 [degF] [facility] Work Phone: 09-21-2021 08:08-0500 Body weight 74 kg [facility] Work Phone: 09-21-2021 08:08-0500 Diastolic blood pressure 62 mm[Hg] [facility] Work Phone: 09-21-2021 08:08-0500 Systolic blood pressure 110 mm[Hg] [facility] Work Phone: Encounters Encounter Date Encounter Type Care Provider Facility Start: 07-10-2025 ambulatory Ian Mon Facility :[facility] Start: 07-03-2025 End: 07-03-2025 ambulatory [facility] Facility:[facility] Start: 06-14-2025 End: 06-14-2025 ambulatory [facility] Facility:[facility] Start: 06-12-2025 End: 06-12-2025 ambulatory TOOTIE MUJICA Facility:[facility] Start: 06-10-2025 End: 06-10-2025 ambulatory [facility] Facility:[facility] Start: 05-30-2025 End: 05-30-2025 Telephone encounter Tootie Mujica APRN.CNP Work Phone: [facility] Start: 05-24-2025 End: 05-27-2025 Refill Mariama Alicea APRN.CNP Work Phone: Family [facility] Comment on above: Refill Request Start: 02-12-2025 End: 02-12-2025 Emergency department patient visit Dr. Ian Mon MD Work Phone: -Emergency Department Work Phone: Start: 01-11-2025 End: 01-11-2025 Emergency department patient visit Dr. Ian Mon MD Work Phone: -Emergency Department Work Phone: Start: 11-29-2024 End: 01-29-2025 Follow-up encounter Liz Juarez CLOTHING WORKER [facility] Comment on above: Results Start: 11-28-2024 End: 12-03-2024 Telephone encounter Tootie Mujica APRN.CNP Work Phone: [facility] Start: 11-28-2024 End: 11-28-2024 Subsequent hospital visit by physician [facility] Work Phone: Radiology Comment on above: SOB (shortness of br eath) [R06.02] Start: 11-28-2024 End: 11-28-2024 Patient encounter procedure Tootie Mujica APRN.CNP Work Phone: [facility] Comment on above: SOB (shortness of br eath) (Primary Dx); Wheezing Start: 11-28-2024 End: 11-28-2024 ambulatory TOOTIE PODLOGАНДРЕЙ Facility:[facility] Start: 11-21-2024 End: 11-21-2024 Telephone encounter Tootie Mujica APRN.CNP Work Phone: [facility] Comment on above: Appointment Start: 11-20-2024 End: 11-20-2024 Refill Mariama Alicea APRN.CNP Work Phone: [facility] Comment on above: Refill Request Encounter for medica tion refill (Primary Dx); Viral illness; Encounter to obtain excuse from work Start: 11-19-2024 End: 11-19-2024 Subsequent hospital visit by physician [facility] Work Phone: Radiology Comment on above: Influenza-like sympt oms [R68.89] Start: 11-19-2024 End: 11-19-2024 ambulatory [facility] Facility:[facility] Start: 11-19-2024 End: 11-19-2024 Office outpatient visit 25 minutes Cecilia Love MD Work Phone: [facility] Comment on above: Influenza-like sympt oms (Primary Dx); Wheezing Start: 10-26-2024 Non-patient / Non-visit Dr. Marjan Mendoza MD -[facility] Work Phone: Start: 10-25-2024 Non-patient / Non-visit Dr. Marjan Mendoza MD -[facility] Work Phone: Start: 10-24-2024 ambulatory Claudette Cooney [place] Start: 10-24-2024 End: 10-26-2024 Evaluation and management of inpatient Dr. Anayeli Mendoza MD -Medical Surgical 3 Work Phone: Start: 10-22-2024 End: 10-22-2024 ambulatory [facility] Facility:[facility] Start: 10-22-2024 End: 10-22-2024 Patient encounter procedure Tierney Mcclure APRN.CARDIAC REHABILITATION PROGRAM DIRECTOR Work Phone: [facility] Comment on above: URI, acute (Primary Dx) Start: 10-12-2024 End: 10-12-2024 Emergency department patient visit Dr. Jason Chopra DO -Emergency Department Work Phone: Start: 10-12-2024 End: 10-12-2024 ambulatory Tootie Andrewlogандрей LARACARDIAC REHABILITATION PROGRAM DIRECTOR Work Phone: [facility] Comment on above: Rsv Start: 10-10-2024 End: 10-10-2024 Subsequent hospital visit by physician [facility] Work Phone: Radiology Comment on above: Acute cough [R05.1] Start: 10-10-2024 End: 10-10-2024 ambulatory [facility] Facility:[facility] Start: 10-10-2024 End: 10-10-2024 Patient encounter procedure Tierney Mcclure APRN.CARDIAC REHABILITATION PROGRAM DIRECTOR Work Phone: [facility] Comment on above: Sore throat (Primary Dx); URI, acute; Acute cough Start: 09-28-2024 End: 09-28-2024 Emergency department patient visit Dr. Rufus Miramontes MD -Emergency Department Work Phone: Start: 08-01-2024 End: 08-01-2024 Admission to same day surgery center Elena Martinezjoseph WETZEL.CARDIAC REHABILITATION PROGRAM DIRECTOR Work Phone: General Surgery Comment on above: Post opp Refill Request Start: 08-01-2024 End: 08-01-2024 ambulatory Elena Martinezjoseph WETZEL.CARDIAC REHABILITATION PROGRAM DIRECTOR Work Phone: General Surgery Start: 07-26-2024 End: 07-26-2024 ambulatory ELENA ALLEN Facility:[facility] Start: 07-26-2024 End: 07-26-2024 Patient encounter procedure Elena Cortezjoseph WETZEL.CARDIAC REHABILITATION PROGRAM DIRECTOR Work Phone: General Surgery Comment on above: Recurrent ventral he rnia (Primary Dx) Start: 07-16-2024 End: 07-16-2024 Refill Vivian Gray MD Work Phone: [facility] Comment on above: Refill Request Start: 07-12-2024 End: 07-12-2024 ambulatory VIVIAN GRAY Facility:[facility] Start: 06-18-2024 End: 06-18-2024 Patient encounter procedure Vivian Gray MD Work Phone: General Surgery Comment on above: Recurrent ventral he rnia (Primary Dx) Start: 2024 End: 2024 Patient encounter procedure Jose Bryant MD Work Phone: Orthopaedics Comment on above: Carpal tunnel syndro me of right wrist (Primary Dx); Ulnar neuropathy at elbow of right upper extremity Start: 01-30-2024 End: 01-30-2024 Patient encounter procedure Shantel Wynn PA-C Work Phone: Orthopaedics Comment on above: 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); Carpal tunnel syndrome on right Start: 01-29-2024 Refill Shaniqua Beckford MD Work Phone: [facility] Comment on above: Refill Request Start: 01-22-2024 Refill Shantel Vejane crow PA-C Work Phone: [facility] Comment on above: Refill Request Start: 01-18-2024 End: 01-18-2024 ambulatory JOSE BRYANT Facility:[facility] Start: 01-06-2024 End: 01-06-2024 Admission to establishment [facility] Work Phone: [facility] Start: 01-06-2024 End: 01-06-2024 ambulatory [facility] Work Phone: Pre Anesthesia Comment on above: Pre-op evaluation (P rimary Dx); ZOFIA (obstructive sleep apnea); Gastroesophageal reflux disease, unspecified whether esophagitis present; Class 2 obesity without serious comorbidity with body mass index (BMI) of 37.0 to 37.9 in adult, unspecified obesity type Start: 01-06-2024 End: 01-06-2024 Preprocedural examination done [facility] Work Phone: [facility] Work Phone: Start: 01-04-2024 Telephone encounter Jose hills MD Work Phone: Orthopaedics Comment on above: Schedule Surgery Start: 01-02-2024 End: 01-02-2024 Patient encounter procedure Jose Bryant MD Work Phone: Orthopaedics Comment on above: Carpal tunnel syndro me of right wrist (Primary Dx); Ulnar neuropathy at elbow of right upper extremity Start: 12-29-2023 End: 12-29-2023 Patient encounter procedure Jose Bryant MD Work Phone: Orthopaedic Surgery [facility] Comment on above: Carpal tunnel syndro me of right wrist (Primary Dx); Ulnar neuropathy at elbow of right upper extremity Start: 12-28-2023 End: 12-28-2023 Patient encounter procedure Cecilia Love MD Work Phone: [facility] Comment on above: Sore throat (Primary Dx); Wheezing Start: 12-17-2023 End: 12-17-2023 [facility] Start: 12-10-2023 End: 12-10-2023 Patient encounter procedure Latha Fatima APRN.CARDIAC REHABILITATION PROGRAM DIRECTOR Work Phone: [facility] Comment on above: Acute otitis media, left (Primary Dx); URI, acute Start: 11-30-2023 End: 11-30-2023 Subsequent hospital visit by physician [facility] Work Phone: Radiology Comment on above: Carpal tunnel syndro me of right wrist [G56.01] Start: 11-03-2023 Telephone encounter Bee Barbour ( Coord) Radiology Comment on above: Appointment Start: 11-03-2023 End: 11-03-2023 Patient encounter procedure Jose Bryant MD Work Phone: Orthopaedics Comment on above: Bilateral hand numbn ess (Primary Dx) Start: 10-26-2023 End: 10-26-2023 Patient encounter procedure Tootie Mujica REAL ESTATE LOAN PROCESSOR.CARDIAC REHABILITATION PROGRAM DIRECTOR Work Phone: [facility] Comment on above: Anxiety and depressi on (Primary Dx); Watery eyes Start: 10-10-2023 End: 10-10-2023 [facility] Start: 10-10-2023 End: 10-10-2023 Subsequent hospital visit by physician [facility] Work Phone: Radiology Comment on above: Finger infection [L0 8.9] Start: 10-03-2023 End: 10-03-2023 [facility] Start: 08-22-2023 End: 08-22-2023 Patient encounter procedure Tierney Mcclure APRN.CARDIAC REHABILITATION PROGRAM DIRECTOR Work Phone: [facility] Comment on above: URI, acute (Primary Dx); Nausea and vomiting, unspecified vomiting type Start: 08-08-2023 Chart abstracting Shaniqua Beckford MD Work Phone: [facility] Comment on above: outside Imaging Start: 08-06-2023 End: 08-06-2023 [facility] Start: 06-01-2023 End: 06-01-2023 [facility] Start: 05-22-2023 Refill Shaniqua Beckford MD Work Phone: [facility] Comment on above: Refill Request Start: 04-13-2023 Telephone encounter Osiel Beckford MD Work Phone: [facility] Comment on above: Results Start: 04-04-2023 End: 04-04-2023 [facility] Start: 04-04-2023 Chart abstracting Shaniqua Beckford MD Work Phone: [facility] Start: 03-30-2023 Chart abstracting [facility] Work Phone: Neurology Start: 03-14-2023 ambulatory Jose Bryant MD Work Phone: Orthopaedics Comment on above: Ultrasound Start: 03-14-2023 Telephone encounter Jose Love [facility] Radiology Comment on above: Appointment Start: 02-28-2023 Refill Shaniqua Beckford MD Work Phone: [facility] Comment on above: Refill Request Start: 01-27-2023 End: 01-27-2023 Patient encounter procedure Jose Bryant MD Work Phone: Orthopaedics Comment on above: Carpal tunnel syndro me of right wrist (Primary Dx); Ulnar neuropathy at elbow of right upper extremity Start: 01-27-2023 Telephone encounter Cecilia Jalloh MD Work Phone: [facility] Comment on above: Results (Wrist MRI) Start: 01-27-2023 End: 01-27-2023 Patient encounter procedure Cecilia Love MD Work Phone: [facility] Comment on above: Abrasion of right caputo nd, initial encounter (Primary Dx); Chronic wrist pain, right Start: 01-18-2023 Telephone encounter Tootie white APRN.CARDIAC REHABILITATION PROGRAM DIRECTOR Work Phone: [facility] Comment on above: Patient Update Start: 01-12-2023 Telephone encounter Tootie white APRN.CARDIAC REHABILITATION PROGRAM DIRECTOR Work Phone: [facility] Comment on above: Results Start: 01-05-2023 ambulatory Tootie Andrewlogандрей WETZEL.CARDIAC REHABILITATION PROGRAM DIRECTOR Work Phone: [facility] Comment on above: Testing Start: 12-01-2022 End: 12-01-2022 Patient encounter procedure Totoie Mujica APRN.CARDIAC REHABILITATION PROGRAM DIRECTOR Work Phone: [facility] Comment on above: Fatigue, unspecified type (Primary Dx); SOB (shortness of breath); Generalized weakness; Rhinorrhea; Snoring; Daytime somnolence; Witnessed apneic spells; Nasal congestion Start: 12-01-2022 ambulatory Tootie Mujica APRN.CARDIAC REHABILITATION PROGRAM DIRECTOR Work Phone: [facility] Comment on above: Illness Start: 11-15-2022 End: 11-15-2022 Patient encounter procedure Carito Medeiros PA-C Work Phone: [facility] Comment on above: Vomiting and diarrhe a (Primary Dx) Start: 11-14-2022 End: 11-14-2022 Patient encounter procedure Abe Calzada APRN.CARDIAC REHABILITATION PROGRAM DIRECTOR Work Phone: [facility] Comment on above: Tooth ache (Primary Dx) Start: 10-22-2022 End: 10-23-2022 Emergency department patient visit [facility] Start: 10-15-2022 Telephone encounter Osiel Beckford MD Work Phone: [facility] Comment on above: letter request Start: 10-14-2022 End: 10-14-2022 Patient encounter procedure Martine Munroe PA-C Work Phone: [facility] Comment on above: Viral URI with cough (Primary Dx) Start: 10-13-2022 End: 10-13-2022 Patient encounter procedure Janine Tavarez MD Work Phone: OB/Gynecology Comment on above: Pelvic pain in femal e (Primary Dx); Levator spasm; Family history of malignant neoplasm of breast Start: 10-02-2022 End: 10-02-2022 Emergency department patient visit [facility] Start: 10-01-2022 Telephone encounter Alyssa [facility] rory REAL ESTATE LOAN PROCESSOR.CARDIAC REHABILITATION PROGRAM DIRECTOR Work Phone: OB/Gynecology Comment on above: Results Start: 09-30-2022 Documentation procedure Mammog laith Coordinator [facility] Start: 09-30-2022 Letter encounter Mammography Coordinator [facility] Department Start: 09-29-2022 End: 09-29-2022 Subsequent hospital visit by physician [facility] Work Phone: Radiology Comment on above: Ovarian cyst, left [ N83.202] Start: 09-20-2022 ambulatory Alyssa Jerome REAL ESTATE LOAN PROCESSOR.CARDIAC REHABILITATION PROGRAM DIRECTOR Work Phone: OB/Gynecology Comment on above: Ultrasound Foot Refill Request Start: 08-20-2022 End: 08-20-2022 Patient encounter procedure Abe Calzada REAL ESTATE LOAN PROCESSOR.CARDIAC REHABILITATION PROGRAM DIRECTOR Work Phone: [facility] Comment on above: Sore throat (Primary Dx); URI, acute Start: 08-16-2022 Telephone encounter Alyssa [facility] mcc REAL ESTATE LOAN PROCESSOR.CARDIAC REHABILITATION PROGRAM DIRECTOR Work Phone: OB/Gynecology Comment on above: Results Start: 08-11-2022 End: 08-11-2022 Patient encounter procedure Vivian Gray MD Work Phone: General Surgery Comment on above: Bleeding hemorrhoid Start: 08-11-2022 End: 08-11-2022 Subsequent hospital visit by physician [facility] Work Phone: Radiology Comment on above: Pelvic pain in femal e [R10.2] Disorder of bone [M8 9.9] Start: 08-02-2022 End: 08-02-2022 Patient encounter procedure Alyssa Cano DAMARI.CARDIAC REHABILITATION PROGRAM DIRECTOR Work Phone: OB/Gynecology Comment on above: Encounter for gyneco logical examination (general) (routine) without abnormal findings (Primary Dx); Encounter for screening for human papillomavirus (HPV); Pelvic pain in female; Encounter for screening mammogram for malignant neoplasm of breast Start: 08-02-2022 End: 08-02-2022 Patient encounter status Alyssa Cano REAL ESTATE LOAN PROCESSOR.CARDIAC REHABILITATION PROGRAM DIRECTOR Work Phone: OB/Gynecology Start: 08-02-2022 Telephone encounter Tootie white APRN.CARDIAC REHABILITATION PROGRAM DIRECTOR Work Phone: [facility] Comment on above: Results Start: 07-31-2022 End: 07-31-2022 Patient encounter procedure Cecilia Love MD Work Phone: [facility] Comment on above: Forearm strain, john t, initial encounter (Primary Dx) Start: 07-28-2022 End: 07-28-2022 Patient encounter procedure Tootie Mujica APRN.CARDIAC REHABILITATION PROGRAM DIRECTOR Work Phone: [facility] Comment on above: Leukocytosis, unspec ified type (Primary Dx); Encounter for immunization; Muscle spasm Start: 07-16-2022 Telephone encounter Jose hills MD Work Phone: Orthopaedics Comment on above: Results Start: 06-24-2022 Telephone encounter Tootie white APRN.CARDIAC REHABILITATION PROGRAM DIRECTOR Work Phone: [facility] Comment on above: Results Start: 06-23-2022 End: 06-23-2022 Patient encounter procedure Tootie Mujica APRN.CARDIAC REHABILITATION PROGRAM DIRECTOR Work Phone: [facility] Comment on above: Diarrhea, unspecifie d type (Primary Dx); Wheezing; Upper respiratory tract infection, unspecified type Start: 06-19-2022 End: 06-19-2022 [facility] Start: 06-19-2022 End: 06-19-2022 Patient encounter procedure Lia Reyes APRN.CARDIAC REHABILITATION PROGRAM DIRECTOR Work Phone: [facility] Comment on above: SOB (shortness of br eath) (Primary Dx) Start: 06-17-2022 End: 06-17-2022 Patient encounter procedure Jose Bryant MD Work Phone: Orthopaedics Comment on above: Primary osteoarthrit is of first carpometacarpal joint of right hand (Primary Dx); Right wrist pain; Disorder of bone Start: 06-07-2022 End: 06-07-2022 Subsequent hospital visit by physician [facility] Work Phone: Radiology Comment on above: Wrist injuries, righ t, initial encounter [S69.91XA] Start: 06-07-2022 End: 06-07-2022 Patient encounter procedure Abe Calzada APRN.CARDIAC REHABILITATION PROGRAM DIRECTOR Work Phone: [facility] Comment on above: Wrist injuries, righ t, initial encounter (Primary Dx); Abnormal x-ray Start: 05-13-2022 End: 05-13-2022 Patient encounter procedure Jero Bruno Work Phone: Podiatry Comment on above: Plantar fasciitis (P rimary Dx); Pain of left heel Start: 05-07-2022 Telephone encounter Osiel Beckford MD Work Phone: [facility] Comment on above: Question Start: 05-05-2022 End: 05-05-2022 Subsequent hospital visit by physician [facility] Work Phone: Radiology Comment on above: Pain of left heel [M 79.672] Start: 05-05-2022 End: 05-05-2022 Office outpatient visit 25 minutes Lia Reyes APRN.CARDIAC REHABILITATION PROGRAM DIRECTOR Work Phone: [facility] Comment on above: Pain of left heel (P rimary Dx) Start: 04-29-2022 ambulatory Shaniqua Beckford MD Work Phone: [facility] Comment on above: Foot Start: 04-20-2022 Telephone encounter Ian bobby APRN.CARDIAC REHABILITATION PROGRAM DIRECTOR Work Phone: [facility] Comment on above: Results Start: 04-19-2022 End: 04-19-2022 Office outpatient visit 25 minutes Lia Reyes REAL ESTATE LOAN PROCESSOR.CARDIAC REHABILITATION PROGRAM DIRECTOR Work Phone: [facility] Comment on above: Rash (Primary Dx); Upper respiratory symptom; Suspected COVID-19 virus infection Start: 01-26-2022 End: 01-26-2022 [facility] Start: 01-26-2022 End: 01-26-2022 Patient encounter procedure Ian Woodall REAL ESTATE LOAN PROCESSOR.CARDIAC REHABILITATION PROGRAM DIRECTOR Work Phone: [facility] Comment on above: Lower abdominal pain (Primary Dx) Start: 01-14-2022 End: 01-14-2022 Patient encounter procedure Lathajeo Fatima REAL ESTATE LOAN PROCESSOR.CARDIAC REHABILITATION PROGRAM DIRECTOR Work Phone: [facility] Comment on above: Viral illness (Prima ry Dx); URI, acute Start: 01-08-2022 End: 01-08-2022 Patient encounter procedure Sabrina Lester REAL ESTATE LOAN PROCESSOR.CARDIAC REHABILITATION PROGRAM DIRECTOR Work Phone: [facility] Comment on above: Sore throat (Primary Dx); Swelling of right eyelid Start: 12-09-2021 End: 12-09-2021 [facility] Start: 12-09-2021 ambulatory Shaniqua Beckford MD Work Phone: [facility] Comment on above: Er Start: 12-09-2021 Telephone encounter Osiel Beckford MD Work Phone: [facility] Comment on above: Results Start: 12-09-2021 End: 12-09-2021 Subsequent hospital visit by physician [facility] Work Phone: Radiology Comment on above: Epigastric pain [R10 .13] Start: 12-08-2021 Telephone encounter Osiel Beckford MD Work Phone: [facility] Comment on above: Radiology Start: 12-07-2021 End: 12-07-2021 Subsequent hospital visit by physician [facility] Work Phone: Radiology Comment on above: Gastroesophageal ref lux disease, unspecified whether esophagitis present [K21.9] Start: 12-07-2021 End: 12-07-2021 Patient encounter procedure Shaniqua Beckford MD Work Phone: [facility] Comment on above: Epigastric pain (Anamaria danielle Dx); Gastroesophageal reflux disease, unspecified whether esophagitis present; Esophageal dysphagia; Odynophagia; Early satiety Start: 12-07-2021 Telephone encounter Tootie Georges white APRN.CNP Work Phone: [facility] Comment on above: Results Start: 09-21-2021 End: 09-21-2021 Emergency department patient visit [facility] Start: 09-02-2021 End: 09-02-2021 Subsequent hospital visit by physician [facility] Work Phone: Radiology Comment on above: Numbness and tinglin g [R20.0, R20.2] Start: 06-26-2021 End: 06-26-2021 Subsequent hospital visit by physician [facility] Work Phone: Radiology Comment on above: Wheezing [R06.2] Start: 01-01-2019 Emergency department patient visit [facility] Start: 06-08-2018 End: 06-08-2018 Emergency department patient visit ALYSSA JENNIFER Facility:B Start: 10-15-2017 End: 10-15-2017 Emergency department patient visit MARISOL JAMES Facility:B Start: 07-17-2017 End: 07-17-2017 Emergency department patient visit AUSTYN ORONA Facility:B Start: 03-16-2017 End: 03-16-2017 Emergency department patient visit MARISOL JAMES Facility:[facility] Procedures Date Procedure Procedure Detail Performing Clinician Start: 02-12-[address] Ian Mon MD Work Phone: Start: 01-11-2025 CT of abdomen and pe lvis without contrast Dr. Ian Mon MD Work Phone: Start: 01-11-[address] Ian Mon MD Work Phone: Start: 01-11-2025 Urnls dip stick/tabl et reagent auto microscopy Dr. Ian Mon MD Work Phone: Start: 11-28-2024 Radiologic exam chest 2 views Tootie Andrewlogандрей REAL ESTATE LOAN PROCESSORMaxiCARDIAC REHABILITATION PROGRAM DIRECTOR Work Phone: Start: 11-19-2024 INFLUENZA A&B MOLECULAR (POC) Cecilia Love MD Work Phone: Start: 11-19-2024 Radiologic exam chest 2 views Cecilia Love MD Work Phone: Start: 10-26-[address] Ian Mon MD Work Phone: Start: 10-26-2024 Measurement of renal function Dr. Ian Mon MD Work Phone: Comment on above: GFR Calc Start: 10-25-2024 Gram stain microscopy Shin Mon MD Work Phone: Start: 10-25-[address] Ian Mon MD Work Phone: Start: 10-24-2024 CT angiography of ch est with contrast Dr. Ian Mon MD Work Phone: Start: 10-24-2024 X-ray of chest, PA a nd lateral views Dr. Ian Mon MD Work Phone: Start: 10-24-2024 D-dimer assay, quantitative Dr. Ian Mon MD Work Phone: Comment on above: D-Dimer ELEVATED (>0 .49): Additional studies and clinicalassessments are indicated to conclude diagnosis of:Deep Vein Thrombosis (DVT) or Pulmonary Embolism (PE)RESULTS CALLED TO BLANCA 10/24/24 Justo Najera.REPORT READ BACK BY . SAME Start: 10-24-2024 Legionella pneumophi la antigen assay Dr. Ian Mon MD Work Phone: Start: 10-24-[address] Ian Mon MD Work Phone: Start: 10-24-2024 SARS-CoV-2, Influenz a & RSV (PCR) Dr. Ian Mon MD Work Phone: Start: 10-24-2024 End: 10-24-2024 Streptococcus pneumoniae antigen assay Dr. Ian Mon MD Work Phone: Start: 10-12-2024 Plain chest X-ray Dr. Kadeem Mon MD Work Phone: Start: 10-10-2024 Radiologic exam chest 2 views Tierney Mcclure APRN.CARDIAC REHABILITATION PROGRAM DIRECTOR Work Phone: Start: 10-10-2024 STREP A MOLECULAR (POC) Tierney Mcclure REAL ESTATE LOAN PROCESSOR.CARDIAC REHABILITATION PROGRAM DIRECTOR Work Phone: Start: 09-28-2024 X-ray of thoracic sp ine, three views Dr. Ian Mon MD Work Phone: Start: 12-29-2023 Injection therapeuti c carpal tunnel Jose Bryant MD Work Phone: Start: 12-28-2023 STREP A MOLECULAR (POC) Cecilia Love MD Work Phone: Start: 12-17-2023 X-ray of both feet Start: 11-30-2023 Us lmtd joint/oth no nvasc xtr strux r-t w/img Jose Bryant MD Work Phone: Start: 10-10-2023 Radex fingr minimum 2 views Abe Calzada REAL ESTATE LOAN PROCESSOR.CARDIAC REHABILITATION PROGRAM DIRECTOR Work Phone: Start: 10-03-2023 Plain chest X-ray Start: 10-03-2023 SARS-CoV-2, Influenz a & RSV (PCR) Start: 08-06-2023 X-ray of lumbar spin e, two or three views Start: 06-01-2023 Plain chest X-ray Start: 04-04-2023 Plain chest X-ray Start: 04-04-2023 SARS-CoV-2 & FLU Ant igen (Rapid) Start: 10-23-2022 CT angiography of ch est with contrast Start: 10-22-2022 Plain chest X-ray Start: 09-29-2022 Us transvaginal Alyssa gilmore REAL ESTATE LOAN PROCESSOR.CARDIAC REHABILITATION PROGRAM DIRECTOR Work Phone: Start: 08-20-2022 STREP A MOLECULAR (POC) [facility] Provider Start: 08-11-2022 Us transvaginal Alyssa M etcalf REAL ESTATE LOAN PROCESSOR.CARDIAC REHABILITATION PROGRAM DIRECTOR Work Phone: Start: 08-11-2022 Mri any jt upper ext remity w/o contrast elfegol Jose Bryant MD Work Phone: Start: 08-02-2022 Urnls dip stick/tabl et rgnt auto w/o microscopy Alyssa Jerome REAL ESTATE LOAN PROCESSOR.CARDIAC REHABILITATION PROGRAM DIRECTOR Work Phone: Start: 07-28-2022 INFLUENZA VACCINE QUADRIVALENT 6 MO - 64 YRS IM Tootie Podlogar REAL ESTATE LOAN PROCESSOR.CARDIAC REHABILITATION PROGRAM DIRECTOR Work Phone: Start: 07-28-2022 Prefundia-SaperionNTJambo COVI D-19 BIVALENT BOOSTER VACCINE, AGE 12+ YR Tootie Podlogar REAL ESTATE LOAN PROCESSOR.CARDIAC REHABILITATION PROGRAM DIRECTOR Work Phone: Start: 06-19-2022 Plain chest X-ray Start: 06-07-2022 Radex wrist complete minimum 3 views Abe Calzada REAL ESTATE LOAN PROCESSOR.CARDIAC REHABILITATION PROGRAM DIRECTOR Work Phone: Start: 05-05-2022 Radex calcaneus mini mum 2 views Lia Reyes REAL ESTATE LOAN PROCESSOR.CARDIAC REHABILITATION PROGRAM DIRECTOR Work Phone: Start: 01-26-2022 Urnls dip stick/tabl et rgnt auto w/o microscopy Latha Fatima REAL ESTATE LOAN PROCESSOR.CARDIAC REHABILITATION PROGRAM DIRECTOR Work Phone: Start: 01-08-2022 STREP A MOLECULAR (POC) Sabrina Lester REAL ESTATE LOAN PROCESSOR.CARDIAC REHABILITATION PROGRAM DIRECTOR Work Phone: Start: 12-09-2021 Computed tomography of abdomen and pelvis with contrast Start: 12-09-2021 Us abdominal real ti me w/image limited Shaniqua Beckford MD Work Phone: Start: 12-07-2021 Radiologic exam abdo men 1 view Shaniqua Beckford MD Work Phone: Start: 10-21-2021 Adult depression scr eening assessment Shaniqua Beckford MD Work Phone: Start: 09-02-2021 Radex forearm 2 views Kadeem sorenson Podlogандрей REAL ESTATE LOAN PROCESSOR.CARDIAC REHABILITATION PROGRAM DIRECTOR Work Phone: Start: 06-26-2021 Radiologic exam chest 2 views Lia Eric REAL ESTATE LOAN PROCESSOR.CARDIAC REHABILITATION PROGRAM DIRECTOR Work Phone: SARS-CoV-2 & FLU Ant igen (Rapid) Viral antigen assay Plan of Treatment Date Care Activity Detail Author Start: 10-13-2027 PAP TESTING PAP TESTING [facility] Start: 10-13-2027 Screening for malignant neoplasm of cervix Pap Testing [facility] Start: 10-13-2025 Screening for malignant neoplasm of cervix Cervical Cancer Screening [facility] Start: 07-03-2025 End: 07-03-2025 Patient encounter procedure 07/03/2025 12:40 PM EDT Office Visit Family Medicine [facility] [address] [place], [place] [id number] Shaniqua Beckford MD [address] [place], [place] [id number] Haven't had insurance til now wanted to continue [facility] Comment on above: Haven't had insurance til now wanted to continue Start: 06-10-2025 End: 06-10-2025 Patient encounter procedure 06/10/2025 10:00 AM EDT Office Visit Orthopaedics [address] [place] [address] Shantel Wynn PA-C [address] [place] [address] Still having pain in both my feet Orthopaedics Comment on above: Still having pain in both my feet Start: 05-31-2025 End: 05-31-2025 Patient encounter procedure 05/31/2025 12:20 PM EDT Office Visit Family [facility] [address] [place], [place] [id number] Tootie Mujica APRN.ANALISA [address] [place] [address] Paperwork for help with bills [facility] Comment on above: Paperwork for help with bills Start: 05-20-2025 Influenza vaccination [facility] Start: 02-12-2025 [facility] Start: 01-11-2025 [facility] Start: 01-02-2025 End: 01-02-2025 Patient encounter procedure 01/02/2025 1:00 PM EDT Office Visit Family Medicine [facility] [address] [place] [address] PodTootie middleton, REAL ESTATE LOAN PROCESSOR.CARDIAC REHABILITATION PROGRAM DIRECTOR [address] [place] [address] Physical [facility] Comment on above: Physical Start: 11-28-2024 End: 11-28-2024 Patient encounter procedure 11/28/2024 1:20 PM EDT Office Visit Family Medicine [facility] [address] [place] [address] PodTootie middleton, REAL ESTATE LOAN PROCESSOR.CARDIAC REHABILITATION PROGRAM DIRECTOR [address] [place] [address] Physical and medication refill. See TE 11/21/24. [facility] Comment on above: Physical and medication refill. See TE . Start: 11-21-2024 End: 11-21-2024 Patient encounter procedure 11/21/2024 5:20 PM EST Office Visit Family [facility] [address] [place] [address] Tootie Mujica, REAL ESTATE LOAN PROCESSOR.CARDIAC REHABILITATION PROGRAM DIRECTOR [address] [place] [address] Check up Family [facility] Comment on above: Check up Start: 10-26-2024 Patient discharge [facility] Start: 10-24-2024 End: 10-24-2024 [facility] Start: 10-24-2024 Care of central venous catheter [facility] Start: 10-24-2024 Following clinical pathway protocol [facility] Start: 10-24-2024 Assessment of risk of venous thromboembolism [facility] Start: 10-24-2024 Fall prevention [facility] Start: 10-24-2024 Incentive spirometry [facility] Start: 10-24-2024 Insertion of catheter into peripheral vein [facility] Start: 10-24-2024 Introduction of urinary catheter [facility] Start: 10-24-2024 Measuring intake and output [facility] Start: 10-24-2024 Oxygen therapy [facility] Start: 10-24-2024 Providing care according to standard [facility] Start: 10-24-2024 Provision of activity privileges [facility] Start: 10-24-2024 Referral to service [facility] Start: 10-24-2024 Admission procedure [facility] Start: 10-24-2024 Inhalation therapy procedure [facility] Start: 10-24-2024 Patient referral to dietitian [facility] Start: 09-28-2024 [facility] Start: 07-26-2024 End: 07-26-2024 Patient encounter procedure 07/26/2024 1:30 PM EST Office Visit General Surgery [address] [place] [address] Elena Allen APRN.CARDIAC REHABILITATION PROGRAM DIRECTOR [address] [place] [address] hernia repair post op lodi lw 07/12 General Surgery Comment on above: hernia repair post op lodi lw 07/12 Start: 07-12-2024 End: 07-12-2024 Admission to same day surgery center 07/12/2024 11:40 AM EDT - 07/12/2024 1:10 PM EDT Surgery LD SURGERY [address] [place] [id number] Vivian Gray MD [address] [place] [address] HERNIORRHAPHY VENTRAL RECURRENT REDUCIBLE LESS THAN 3cm LD SURG[facility] Comment on above: HERNIORRHAPHY VENTRAL RECURRENT REDUCIBL E LESS THAN 3cm Start: 07-12-2024 End: 07-12-2024 HERNIORRHAPHY VENTRAL RECURRENT REDUCIBLE LESS THAN 3cm HERNIORRHAPHY VENTRAL RECURRENT REDUCIBLE LESS THAN 3cm Ventral hernia without obstruction or gangrene 07/12/2024 11:40 AM EDT LD OR Start: 07-12-2024 Subsequent hospital visit by physician [facility] Comment on above: Ventral hernia without obstruction or ga ngrene [K43.9] Start: 06-18-2024 End: 06-18-2024 Patient encounter procedure General Surgery Comment on above: 06/08/24 [facility] ER F/U - UMBILICAL HERNIA 06/08/24 [facility] ER F/U, UMBILICAL HERNIA Start: 05-20-2024 Covid-19 Vaccine () Covid-19 Vaccine () [facility] Start: 05-20-2024 Covid-19 Vaccine () Covid-19 Vaccine () [facility] Start: 05-20-2024 Influenza vaccination [facility] Start: 2024 End: 2024 Patient encounter procedure 2024 12:45 PM EDT Office Visit Orthopaedics [address] [place] [address] Jose Bryant MD [address] [place] [address] Post op right ulnar nerve decompression and right CTR Orthopaedics Comment on above: Post op right ulnar nerve decompression and right CTR Start: 01-30-2024 End: 01-30-2024 Patient encounter procedure 01/30/2024 9:00 AM EDT Office Visit Orthopaedics [address] [place] [address] Shantel Wynn PA-C [address] [place] [address] Post op right ulnar nerve decompression and right CTR Orthopaedics Comment on above: Post op right ulnar nerve decompression and right CTR Start: 01-18-2024 End: 01-18-2024 Admission to same day surgery center 01/18/2024 11:48 AM EDT - 01/18/2024 1:20 PM EDT [facility] Surgery [address] [place] [address] Jose Bryant MD [address] [place] [address] DECOMPRESSION NERVE ULNAR ELBOW [facility] Surgery Comment on above: DECOMPRESSION NERVE ULNAR ELBOW Start: 01-18-2024 End: 01-18-2024 Neuroplasty &/transpos median nrv carpal tunne DECOMPRESSION NERVE MEDIAN CARPAL TUNNEL Ulnar neuropathy of right upper extremity Carpal tunnel syndrome on right 01/18/2024 11:48 AM EDT ME OR Start: 01-18-2024 End: 01-18-2024 Neuroplasty &/transposition ulnar nerve elbow DECOMPRESSION NERVE ULNAR ELBOW Ulnar neuropathy of right upper extremity Carpal tunnel syndrome on right 01/18/2024 11:48 AM EDT ME OR Start: 01-18-2024 Subsequent hospital visit by physician 01/18/2024 11:48 AM EDT Hospital Encounter [facility] Surgery [address] [place] [address] Jose Bryant MD [address] [place] [address] 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] [facility] Surgery Comment on above: Ulnar neuropathy of right upper extremit y [G56.21] Start: 12-17-2023 [facility] Start: 10-10-2023 [facility] Start: 10-10-2023 Incision & drainage abscess simple/single I&D ABSCESS SIMPLE/SINGLE [facility] Start: 10-03-2023 [facility] Start: 09-19-2023 Depression Assessment Depression Assessment [facility] Start: 08-22-2023 End: 09-05-2023 COVID & INFLUENZA A/B & RSV NAAT, ROUTINE [facility] Work Phone: Comment on above: Expected: 08/22/2023, Expires: Start: 08-06-2023 [facility] Start: 05-20-2023 Covid-19 Vaccine ( season) Covid-19 Vaccine ( season) [facility] Start: 05-20-2023 Influenza vaccination [facility] Start: 01-30-2023 End: 04-01-2023 CBC W Auto Differential panel - Blood CBC + DIFF Lab Routine Leukocytosis, unspecified type Expected: 01/30/2023, Expires: 04/01/2023 [facility] Work Phone: Comment on above: Expected: 01/30/2023, Expires: 3 Start: 01-12-2023 End: 03-14-2023 FLOW CYTOMETRY PERIPHERAL BLOOD LEUK/LYMPH (FCLEUK) FLOW CYTOMETRY PERIPHERAL BLOOD LEUK/LYMPH (FCLEUK) Lab Routine Abnormal CBC Expected: 01/12/2023, Expires: 03/14/2023 [facility] Work Phone: Comment on above: Expected: 01/12/2023, Expires: 3 Start: 01-12-2023 End: 03-14-2023 IMMUNOGLOBULINS FANNIE IMMUNOGLOBULINS FANNIE Lab Routine Abnormal CBC Expected: 01/12/2023, Expires: 03/14/2023 [facility] Work Phone: Comment on above: Expected: 01/12/2023, Expires: 3 Start: 12-01-2022 End: 01-31-2023 CBC W Auto Differential panel - Blood CBC + DIFF Lab Routine Generalized weakness Fatigue, unspecified type Expected: 12/01/2022, Expires: 01/31/2023 [facility] Work Phone: Comment on above: Expected: 12/01/2022, Expires: 3 Start: 12-01-2022 End: 01-31-2023 Comprehensive metabolic 2000 panel - Serum or Plasma COMP METABOLIC PANEL Lab Routine Generalized weakness Fatigue, unspecified type Expected: 12/01/2022, Expires: 01/31/2023 [facility] Work Phone: Comment on above: Expected: 12/01/2022, Expires: 3 Start: 12-01-2022 End: 01-31-2023 Thyrotropin [Units/volume] in Serum or Plasma TSH BLD Lab Routine Generalized weakness Fatigue, unspecified type Expected: 12/01/2022, Expires: 01/31/2023 [facility] Work Phone: Comment on above: Expected: 12/01/2022, Expires: 3 Start: 10-22-2022 [facility] Start: 10-21-2022 Adult depression screening assessment DEPRESSION SCREENING [facility] Start: 10-14-2022 End: 10-28-2022 Influenza virus A and B RNA and SARS-CoV-2 (COVID-19) N gene panel - Respiratory specimen by MADHAVI with probe detection [facility] Work Phone: Comment on above: Expected: 10/14/2022, Expires: 3 Start: 10-02-2022 Anoscopy dx w/collj spec br/wa spx when prfrmd DIAGNOSTIC ANOSCOPY SPX [facility] Start: 09-19-2022 DEPRESSION ASSESSMENT DEPRESSION ASSESSMENT [facility] Start: 06-30-2022 PAP TESTING PAP TESTING [facility] Start: 06-23-2022 End: 08-23-2022 CBC W Auto Differential panel - Blood [facility] Work Phone: Comment on above: Expected: 06/23/2022, Expires: 2 Start: 06-23-2022 End: 08-23-2022 Comprehensive metabolic 2000 panel - Serum or Plasma [facility] Work Phone: Comment on above: Expected: 06/23/2022, Expires: 2 Start: 06-19-2022 [facility] Work Phone: Start: 05-20-2022 Influenza vaccination [facility] Start: 04-19-2022 End: 06-19-2022 Herpes simplex virus+Varicella zoster virus DNA [Presence] in Unspecified specimen by MADHAVI with probe detection HSV 1,2/VZV AMP MOLECULAR DETECT Lab Routine Rash Expected: 04/19/2022, Expires: 06/19/2022 [facility] Work Phone: Comment on above: Expected: 04/19/2022, Expires: 2 Start: 04-19-2022 End: 05-03-2022 SARS-CoV-2 (COVID-19) RNA [Presence] in Respiratory specimen by MADHAVI with probe detection 2019 CORONAVIRUS Microbiology Routine Upper respiratory symptom Suspected COVID-19 virus infection Expected: 04/19/2022, Expires: 05/03/2022 [facility] Work Phone: Comment on above: Expected: 04/19/2022, Expires: 2 Start: 01-28-2022 HEPATITIS C SCREENING HEPATITIS C SCREENING [facility] Comment on above: Postponed from 02/28/2004 (Declined at t his time) Start: 01-28-2022 HIV SCREENING HIV SCREENING [facility] Comment on above: Postponed from 02/28/2004 (Declined at t his time) Start: 01-28-2022 ONE PNEUMOVAX PRIOR TO AGE 65 ONE PNEUMOVAX PRIOR TO AGE 65 [facility] Comment on above: Postponed from 2005 (Declined at t his time) Start: 01-28-2022 Urine microalbumin profile DTAP,TDAP,TD (1 - Tdap) [facility] Comment on above: Postponed from 2005 (Declined at t his time) Start: 01-26-2022 Bacteria identified in Urine by Culture Urine Culture [facility] Work Phone: Start: 01-14-2022 End: 01-28-2022 Influenza virus A and B RNA and SARS-CoV-2 (COVID-19) N gene panel - Respiratory specimen by MADHAVI with probe detection COVID WITH FLUA+B, ROUTINE Microbiology Routine Viral illness URI, acute Expected: 01/14/2022, Expires: 01/28/2022 [facility] Work Phone: Comment on above: Expected: 01/14/2022, Expires: 2 Start: 12-28-2021 COVID-19 VACCINE (3 - Booster for Pfizer series) COVID-19 VACCINE (3 - Booster for Pfizer series) [facility] Start: 12-07-2021 End: 02-06-2022 CBC W Auto Differential panel - Blood [facility] Work Phone: Comment on above: Expected: 12/07/2021, Expires: 2 Start: 12-07-2021 End: 02-06-2022 Comprehensive metabolic 2000 panel - Serum or Plasma [facility] Work Phone: Comment on above: Expected: 12/07/2021, Expires: 2 Start: 12-07-2021 End: 02-06-2022 Lipase [Enzymatic activity/volume] in Serum or Plasma [facility] Work Phone: Comment on above: Expected: 12/07/2021, Expires: 2 Start: 09-24-2021 COVID-19 VACCINE (3 - Booster for Pfizer series) COVID-19 VACCINE (3 - Booster for Pfizer series) [facility] Start: 09-19-2021 DEPRESSION ASSESSMENT DEPRESSION ASSESSMENT [facility] Start: 05-20-2021 Influenza vaccination INFLUENZA (#1) [facility] Start: 02-28-2016 HPV TESTING HPV TESTING [facility] Start: 02-28-2016 Screening for malignant neoplasm of cervix HPV Testing [facility] Start: 2013 HPV Vaccine (1 - 3-dose SCDM series) HPV Vaccine (1 - 3-dose SCDM series) [facility] Start: 2005 Hepatitis B Vaccine (1 of 3 - 19+ 3-dose series) Hepatitis B Vaccine (1 of 3 - 19+ 3-dose series) [facility] Start: 2005 Urine microalbumin profile [facility] Start: 02-28-2004 Anxiety Screening Anxiety Screening [facility] Start: 02-28-2004 Depression Screening Depression Screening [facility] Start: 02-28-2004 HEPATITIS C SCREENING HEPATITIS C SCREENING [facility] Start: 02-28-2004 Hepatitis C screening Hepatitis C Screening [facility] Start: 02-28-2004 HIV SCREENING HIV SCREENING [facility] Start: 02-28-2004 HIV screening HIV Screening [facility] Start: 02-28-1992 Pneumococcal vaccination Pneumococcal Vaccine (1 of 2 - PCV) [facility] Start: 1986 HEPATITIS B (1 of 3 - 3-dose series) HEPATITIS B (1 of 3 - 3-dose series) [facility] Start: 1986 Hepatitis B Vaccine (1 of 3 - 3-dose series) Hepatitis B Vaccine (1 of 3 - 3-dose series) [facility] ALERE STREP A TEST (AG) ALERE ST REP A TEST (AG) Lab Routine Sore throat Ordered: 08/20/2022 [facility] Work Phone: Comment on above: Ordered: 08/20/2022 Clostridioides diffi cile toxin genes [Presence] in Stool by MADHAVI with probe detection C. DIFFICILE PCR Lab Routine Diarrhea, unspecified type Ordered: 06/23/2022 [facility] Work Phone: Comment on above: Ordered: 06/23/2022 COVID & INFLUENZA A/ B & RSV PCR, ROUTINE COVID & INFLUENZA A/B & RSV PCR, ROUTINE Microbiology Routine URI, acute Ordered: 10/10/2024 [facility] Work Phone: Comment on above: Ordered: 10/10/2024 COVID & INFLUENZA A/ B & RSV PCR, ROUTINE COVID & INFLUENZA A/B & RSV PCR, ROUTINE Microbiology Routine URI, acute 10/22/2024 8:18 PM [facility] Work Phone: COVID & INFLUENZA A/ B & RSV PCR, ROUTINE COVID & INFLUENZA A/B & RSV PCR, ROUTINE Microbiology Routine Influenza-like symptoms Wheezing 11/19/2024 1:30 PM [facility] Work Phone: End: 01-08-2023 Ct abdomen & pelvis w/contrast material CT ABD/PEL W IVCON Radiology STAT Epigastric pain 1 Occurrences starting 12/09/2021 until 01/08/2023 [facility] Work Phone: Comment on above: 1 Occurrences starting 12/09/2021 until 01/08/2023 ENTERIC BACTERIAL PA ISMAEL BY PCR ENTERIC BACTERIAL PANEL BY PCR Lab Routine Diarrhea, unspecified type Ordered: 06/23/2022 [facility] Work Phone: Comment on above: Ordered: 06/23/2022 Giardia lamblia+Cryptosporidium sp Ag [Presence] in Stool by Immunoassay CRYPTOSPORIDIUM AND GIARDIA ANTIGENS BY EIA Microbiology Routine Diarrhea, unspecified type Ordered: 06/23/2022 [facility] Work Phone: Comment on above: Ordered: 06/23/2022 HERNIORRHAPHY VENTRA L RECURRENT REDUCIBLE LESS THAN 3cm HERNIORRHAPHY VENTRAL RECURRENT REDUCIBLE LESS THAN 3cm Ventral hernia without obstruction or gangrene LD OR End: 01-20-2024 HOME SLEEP APNEA TEST (HSAT) HOME SLEEP APNEA TEST (HSAT) Procedures Routine Daytime somnolence 1 Occurrences starting 01/20/2023 until 01/20/2024 [facility] Work Phone: Comment on above: 1 Occurrences starting 01/20/2023 until 01/20/2024 Influenza virus A an d B RNA and SARS-CoV-2 (COVID-19) N gene panel - Respiratory specimen by MADHAVI with probe detection COVID WITH FLUA+B, ROUTINE Microbiology Routine URI, acute Ordered: 08/20/2022 [facility] Work Phone: Comment on above: Ordered: 08/20/2022 End: 09-01-2023 ARACELI SCREENING W HOLLIS ARACELI SCREENING W HOLLIS Radiology Routine Encounter for screening mammogram for malignant neoplasm of breast 1 Occurrences starting 08/02/2022 until 09/01/2023 [facility] Work Phone: Comment on above: 1 Occurrences starting 08/02/2022 until 09/01/2023 Mri any jt upper extremity w/o contrast matrl MRI WRIST WO IVCON RT Radiology Routine Disorder of bone Ordered: 07/15/2022 [facility] Work Phone: Comment on above: Ordered: 07/15/2022 PAP FLUID VAGINAL SCREENING PAP FLUID VAGINAL SCREENING Lab Routine Family history of malignant neoplasm of breast 10/13/2022 2:40 PM EST [facility] Work Phone: End: 05-12-2024 PAP TITRATION PSG (CPAP, BIPAP, ASV) PAP TITRATION PSG (CPAP, BIPAP, ASV) Procedures Routine ZOFIA (obstructive sleep apnea) Hypoxia 1 Occurrences starting 04/13/2023 until 05/12/2024 [facility] Work Phone: Comment on above: 1 Occurrences starting 04/13/2023 until 05/12/2024 Patient Education [facility] Work Phone: Patient referral [facility] Work Phone: End: 12-01-2023 Polysomnogram POLYSOMNOGRAM (PSG) Procedures Routine Witnessed apneic spells Snoring Daytime somnolence 1 Occurrences starting 12/01/2022 until 12/01/2023 [facility] Work Phone: Comment on above: 1 Occurrences starting 12/01/2022 until 12/01/2023 End: 12-31-2023 Radiologic exam chest 2 views XR CHEST 2V FRONTAL/LAT Radiology Routine SOB (shortness of breath) 1 Occurrences starting 12/01/2022 until 12/31/2023 [facility] Work Phone: Comment on above: 1 Occurrences starting 12/01/2022 until 12/31/2023 End: 12-31-2023 SPIROMETRY - BASELINE AND POST DILATOR SPIROMETRY - BASELINE AND POST DILATOR PFT Routine SOB (shortness of breath) 1 Occurrences starting 12/01/2022 until 12/31/2023 [facility] Work Phone: Comment on above: 1 Occurrences starting 12/01/2022 until 12/31/2023 End: 01-06-2023 Us abdominal real time w/image limited US ABD RT UPPER QUADRANT Radiology KACY Epigastric pain 1 Occurrences starting 12/07/2021 until 01/06/2023 [facility] Work Phone: Comment on above: 1 Occurrences starting 12/07/2021 until 01/06/2023 End: 02-26-2024 US ELBOW RIGHT US ELBOW RIGHT Radiology Routine Ulnar neuropathy at elbow of right upper extremity 1 Occurrences starting 01/27/2023 until 02/26/2024 [facility] Work Phone: Comment on above: 1 Occurrences starting 01/27/2023 until 02/26/2024 End: 09-01-2023 Us transvaginal US FEMALE PELVIS TRANSVAG Radiology Routine Pelvic pain in female 1 Occurrences starting 08/02/2022 until 09/01/2023 [facility] Work Phone: Comment on above: 1 Occurrences starting 08/02/2022 until 09/01/2023 End: 09-15-2023 Us transvaginal US FEMALE PELVIS TRANSVAG Radiology Routine Ovarian cyst, left 1 Occurrences starting 08/16/2022 until 09/15/2023 [facility] Work Phone: Comment on above: 1 Occurrences starting 08/16/2022 until 09/15/2023 End: 10-31-2023 Us transvaginal US FEMALE PELVIS TRANSVAG Radiology Routine Complex cyst of left ovary 1 Occurrences starting 10/01/2022 until 10/31/2023 [facility] Work Phone: Comment on above: 1 Occurrences starting 10/01/2022 until 10/31/2023 US WRIST RIGHT US WRIST RIGHT R adiology Routine Carpal tunnel syndrome of right wrist Ordered: 01/27/2023 [facility] Work Phone: Comment on above: Ordered: 01/27/2023 [facility] Immunizations Immunization Date Immunization Notes Care Provider Fa [facility] 07-28-2022 COVID-19 booster vaccine, age 12+ yr, bivalent (PFIZER-BIONTECH) Tootie Mujica REAL ESTATE LOAN PROCESSOR.CARDIAC REHABILITATION PROGRAM DIRECTOR Work Phone: [facility] 07-28-2022 influenza, injectabl e, quadrivalent, contains preservative Tootie Podlogандрей REAL ESTATE LOAN PROCESSOR.CARDIAC REHABILITATION PROGRAM DIRECTOR Work Phone: [facility] 07-28-2022 influenza virus vaccine, unspecified formulation 2 Work Phone: [facility] 07-30-2021 COVID-19 vaccine, ag e 12+ yr (PFIZER-BIONTECH - PURPLE TOP) Shaniqua Beckford MD Work Phone: [facility] 07-09-2021 COVID-19 vaccine, ag e 12+ yr (PFIZER-BIONTECH - PURPLE TOP) Shaniqua Beckford MD Work Phone: [facility] Payers Date Payer Category Payer Self-pay 2022 Unknown [id number] 2020 Medicaid [employer] [place] [id number] 2020-Present [phone] [address] [address] [place] [address] Medicaid [id number] 2020 Medicaid [id number] 2014 Private Health Insurance [id number] 1986 Unknown [id number] Unknown [id number] Unknown [id number] Unknown [id number] Unknown [id number] Unknown [id number] Unknown [id number] Unknown [id number] Unknown [id number] Unknown [id number] Social History Date Type Detail Facility Start: 10-21-2021 End: 06-18-2024 Tobacco smoking status NHIS Ex-smoker [facility] Start: 10-07-2004 End: 10-07-2021 History of tobacco use Current smoker [facility] Start: 10-21-2021 End: 10-26-2023 Cigarettes smoked current (pack per day) - Reported 0.5 [facility] Start: 10-21-2021 End: 06-18-2024 Tobacco use and exposure Smokeless tobacco non-user [facility] Start: 12-07-2021 End: 11-28-2024 Alcohol intake Current non-drinker of alcohol (finding) [facility] Start: 09-02-2021 End: 11-15-2022 History SDOH Alcohol Frequency 1 [facility] Start: 09-02-2021 End: 11-15-2022 History SDOH Alcohol Std Drinks 98 [facility] Start: 09-02-2021 End: 11-15-2022 History SDOH Social Connections Phone 2 [facility] Start: 09-02-2021 End: 11-15-2022 History SDOH Social Connections Living 7 [facility] Start: 09-02-2021 End: 11-15-2022 History SDOH Physical Activity DPW 5 [facility] Start: 09-02-2021 History SDOH Physica l Activity MPS 3 [facility] Start: 09-02-2021 End: 11-15-2022 History SDOH Stress 4 [facility] Start: 1985 Sex Assigned At Female [facility] Start: 05-27-2021 End: 08-20-2022 Exposure to SARS-CoV-2 (event) Not sure [facility] Start: 12-09-2021 End: 12-17-2023 Tobacco smoking status NHIS Unknown if ever smoked [facility] Start: 03-07-2019 Rare [facility] Start: 12-17-2019 None [facility] Start: 03-07-2019 With Family [facility] Start: 02-23-2020 Cigarettes [facility] Start: 10-07-2004 End: 10-07-2021 History of tobacco use Cigarette Smoker [facility] Start: 11-15-2022 History SDOH Alcohol Std Drinks 0 [facility] Start: 11-15-2022 End: 10-26-2023 Social connection and isolation panel [facility] Do you belong to any clubs or organizations such as pentecostalism groups, unions, fraternal or athletic groups, or school groups? No [facility] Are you now , , , , never or living with a partner? Never [facility] How often to you hav e a drink containing alcohol? Never [facility] Start: 04-05-2015 How many standard drinks containing alcohol do you have on a typical day? Patient does not drink [facility] How hard is it for y ou to pay for the very basics like food, housing, medical care, and heating Not very hard [facility] Do you feel stress - tense, restless, nervous, or anxious, or unable to sleep at night because your mind is troubled all the time - these days [OSQ] Only a little [facility] (I/We) worried wheth er (my/our) food would run out before (I/we) got money to buy more. Never true [facility] Start: 06-26-2021 Gender identity Identifies as female gender (finding) [facility] Start: 06-26-2021 Sexual orientation Heterosexual (fin brandt) [facility] How hard is it for y ou to pay for the very basics like food, housing, medical care, and heating Somewhat hard [facility] Do you feel stress - tense, restless, nervous, or anxious, or unable to sleep at night because your mind is troubled all the time - these days [OSQ] Rather much [facility] (I/We) worried wheth er (my/our) food would run out before (I/we) got money to buy more. Sometimes true [facility] Start: 01-28-2021 End: 10-26-2023 Tobacco smoking status NHIS Smokes tobacco daily [facility] In the past 12 month s, was there a time when you were not able to pay the mortgage or rent on time? Yes [facility] Start: 01-11-2025 Sex Female (finding) [facility] NEGATED: Highlighted row [facility] NEGATED: Highlighted row Not [facility] Goals Date Patient Goal Desired Activity /State Functional Status Date Assessment Result Facility 11-28-2024 Total score [AUDIT-C] 0 11/29/19 25 12:06 PM EDT User, Avery [facility] 11-28-2024 Within the last year , have you been humiliated or emotionally abused in other ways by your partner or ex-partner? No 11/28/2024 12:06 PM EDT User, Hussainhart No [facility] 11-28-2024 Within the last year , have you been afraid of your partner or ex-partner? No 11/28/2024 12:06 PM EDT User, Hussainhart No [facility] 11-28-2024 Within the last year , have you been raped or forced to have any kind of sexual activity by your partner or ex-partner? No 11/28/2024 12:06 PM EDT User, Hussainhart No [facility] 11-28-2024 Within the last year , have you been kicked, hit, slapped, or otherwise physically hurt by your partner or ex-partner? No 11/28/2024 12:06 PM EDT User, Hussainhart No [facility] 11-28-2024 How often to you hav e a drink containing alcohol? Never 11/28/2024 12:06 PM EDT User, Mychart Never [facility] 11-28-2024 Functional status Patient does n ot drink 11/28/2024 12:06 PM EDT User, Mychart Patient does not drink [facility]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 Telephone encounter Note Prescription Refill Information The patient has been identified by name and date of : Yes Caregiver verified no other encounters exist for this prescription request: Yes Caregiver confirmed with patient/requestor that no other refills are due, in the near future, with this provider at this time: Yes The last office visit in the department: 11/28/24 Does the patient have a future office visit with this provider/department: Yes, 07/03/25 Requested Prescriptions Pending Prescriptions Disp Refills omeprazole (PRILOSEC) 40 mg capsule 30 capsule 0 Sig: Take 1 capsule by mouth once daily. Femi Selby LPN May 25, 2025 8:31 AM [facility] 05-25-2025 Miscellaneous Notes Prescription Refill Information The patient has been identified by name and date of : Yes Caregiver verified no other encounters exist for this prescription request: Yes Caregiver confirmed with patient/requestor that no other refills are due, in the near future, with this provider at this time: Yes The last office visit in the department: 11/28/24 Does the patient have a future office visit with this provider/department: Yes, 07/03/25 Requested Prescriptions Pending Prescriptions Disp Refills omeprazole (PRILOSEC) 40 mg capsule 30 capsule 0 Sig: Take 1 capsule by mouth once daily. Femi Selby LPN May 25, 2025 8:31 AM documented in this encounter [facility] 05-25-2025 Telephone encounter Note Prescription Refill Information The patient has been identified by name and date of : Yes Caregiver verified no other encounters exist for this prescription request: Yes Caregiver confirmed with patient/requestor that no other refills are due, in the near future, with this provider at this time: Yes The last office visit in the department: 11/28/24 Does the patient have a future office visit with this provider/department: Yes, 07/03/25 Requested Prescriptions Pending Prescriptions Disp Refills loratadine (CLARITIN) 10 mg tablet 30 tablet 11 Sig: Take 1 tablet by mouth once daily. Femi Selby LPN May 25, 2025 8:30 AM [facility] 05-25-2025 Miscellaneous Notes Prescription Refill Information The patient has been identified by name and date of : Yes Caregiver verified no other encounters exist for this prescription request: Yes Caregiver confirmed with patient/requestor that no other refills are due, in the near future, with this provider at this time: Yes The last office visit in the department: 11/28/24 Does the patient have a future office visit with this provider/department: Yes, 07/03/25 Requested Prescriptions Pending Prescriptions Disp Refills loratadine (CLARITIN) 10 mg tablet 30 tablet 11 Sig: Take 1 tablet by mouth once daily. Femi Selby LPN May 25, 2025 8:30 AM documented in this encounter [facility] 02-12-2025 Discharge summary [facility] 02-12-2025 Discharge summary Note Date/Time February 12, 2025 6:12pm [facility] Medical Records Department [address] [place] [address] Emergency Department Summary 02/12/25 MR#: [id number] Acct: [id number] Name: ARLET NAVARRO Rep #:[id number] : 1985 39 From: Ry Garcia DO PCP: Dr. Ian Mon MD Status:REG ER Location: ED HPI History of Present Illness Chief Complaint: Shortness of Breath Narrative Narrative: Patient is a 39-year-old female past medical history of recurrent UTIs, kidney stones, former tobacco use quit a year ago who presents to the emergency department chief complaint of cough and shortness of breath. Patient states that for the last 3 days she has had cough and shortness of breath. States thateverybody at work has been ill recently. States that she has a breathing machine for treatments at home and has been using this she states that she has enough of her inhaler and this at home. States that she has not been on any steroids recently. Patient states that her cough is not productive states that nothing will come up. Patient denies any history of blood clots denies any recent travel history [facility] Medical History History of recurrent UTI (urinary tract infection) Allergic rhinitis Former tobacco use Kidney stones Home Medications ?Medication ?Instructions ?Recorded ?Last Taken ?Type omeprazole 40 mg capsule,delayed 40 mg PO DAILY gerd 0 12/09/21 10/23/24 History release albuterol sulfate 90 mcg/actuation 1 - 2 puff inhalati on Q4H PRN PRN 04/04/23 10/24/24 Rx aerosol inhaler (Ventolin HFA) Wheezing #1 device loratadine 10 mg tablet (Allergy 10 mg PO DAILY allerg y 10/24/24 10/23/24 History Relief (loratadine)) naproxen sodium 220 mg capsule 220 mg PO DAILY 5 Unknown History (Aleve) prednisone 50 mg tablet 50 mg PO DAILY 4 days #4 tab s 02/12/25 Unknown Rx Allergy/AdvReac Type Severity Reaction Status Date / Time hydrocodone bitartrate (From Allergy Hives Verified 02/12/25 15:29 [place]) Family History Mother COPD (chronic obstructive pulmonary disease) Lung cancer Surgical History History of umbilical hernia repair History of carpal tunnel surgery History of hysterectomy Social History household members: children Smoking Status: Former smoker how long ago did patient quit smoking: Quit ~ 1 year prior to 10/24/24 evaluation, smoked ~ 1 ppd since teen. alcohol intake: never substance use type: does not use ROS ROS ED ROS Narrative Constitutional: Denies fevers, chills, headaches, lightness, dizziness Eyes: Denies change in vision double vision blurry vision Cardiovascular: Denies chest pain or palpitations Respiratory: Complains of dry cough as noted above and shortness of breath Abdomen: Denies nausea vomiting diarrhea : Denies urinary symptoms Neurological: Denies numbness, weakness, tingling Musculoskeletal: Denies back pain Skin: Denies rashes or lesions EXAM Physical Exam Narrative Exam Narrative: General: Patient lying in bed rest comfortably did not appear to be acute distress Head: Atraumatic, normocephalic Eyes: PERRL bilaterally, EOMI bilateral, no conjunctival injection noted Neck: Soft, supple, trachea midline Cardiovascular: Regular rate and rhythm no murmurs gallops rubs noted Respiratory: Patient has mild end expiratory wheezing noted on the right side clear to auscultation on the left side Abdomen: Soft, nondistended, nontender to palpation Extremities: +5/5 strength noted in the bilateral upper and lower extremities, no pedal edema on exam Neurological: Patient following commands knew that she was at [facility] years 2024 Skin: Warm, dry, intact no rashes or lesions noted Const Vital Signs: 02/12/25 15:30 02/12/25 15:32 02/12/25 15:33 Temperature 98.1 F 98.1 F Temperature Source Oral Oral Pulse Rate 85 85 Respiratory Rate 18 18 Respiratory Effort Respiratory Depth Respiratory Pattern Blood Pressure 119/88 H 119/88 H Blood Pressure Mean 98 98 Pulse Ox 98 98 99 Oxygen Delivery Method Room Air Room Air Room Air 02/12/25 15:33 02/12/25 16:32 02/12/25 17:00 Temperature 98.2 F 98.2 F Temperature Source Oral Oral Pulse Rate 80 79 Respiratory Rate 15 14 Respiratory Effort Respiratory Depth Respiratory Pattern Blood Pressure 121/79 H 121/79 H Blood Pressure Mean 93 93 Pulse Ox 99 97 98 Oxygen Delivery Method Room Air Room Air Room Air 02/12/25 17:21 02/12/25 17:46 02/12/25 17:56 Temperature Temperature Source Pulse Rate 83 86 Respiratory Rate 17 16 Respiratory Effort Normal Respiratory Depth Normal Respiratory Pattern Normal Normal Blood Pressure 119/81 H Blood Pressure Mean 93 Pulse Ox 96 Oxygen Delivery Method Room Air MDM MDM MDM Narrative Medical decision making narrative: Patient is a 31-year-old female who presents to the emerged part with a chief complaint of cough and shortness of breath. On the differential diagnosis includes but not limited to upper respiratory infection, viral etiology, pneumonia, COPD exacerbation. Once workup is obtained reviewed she will be reevaluated. Patient be given DuoNeb and oral prednisone. Patient refused her chest x-ray as she states that she has been here for 3 hoursalready and did not want to be here in another 2 hours and is refusing the chestx-ray she states that if she gets worse she will come back. Patient's CBC was reviewed showed no evidence leukocytosis white blood count normal 8.3, hemoglobin 13.7, plate count of 232. Patient's sodium normal 141, potassium normal 3.5, creatinine was 0.61. Patient ambulated well here in the emergency department no evidence hypoxia nor tachycardia. Patient will be placed on prednisone for the next 4 days as she was given her first dose here and she states that she has plenty of inhalers/breathing treatments at home. She states that she will return with worsening symptoms or other concerns. She is feeling better all course concerns answered she will be discharged home in stable condition. Lab Data Labs: Laboratory Results - last 24 hr 02/12/25 16:40 WBC 8.3 RBC 4.82 Hgb 13.7 Hct 40.8 MCV 84.6 MCH 28.4 MCHC 33.6 RDW Std Deviation 37.9 RDW Coeff of Raeann 12.5 Plt Count 232 MPV 10.4 Immature Gran % (Auto) 0.200 Neut % (Auto) 58.5 Lymph % (Auto) 29.4 [place] % (Auto) 8.7 Eos % (Auto) 2.5 Baso % (Auto) 0.7 Absolute Neuts (auto) 4.8 Absolute Lymphs (auto) 2.43 Nucleated RBC % 0 Sodium 141 Potassium 3.5 Chloride 106 Carbon Dioxide 22.8 Anion Gap 12 BUN 9 Creatinine 0.61 L Estim Creat Clear Calc 116.71 Est GFR (MDRD) Non-Af 118 BUN/Creatinine Ratio 15.2 Glucose 77 Calcium 8.7 Discharge Plan Triage Chief Complaint: Shortness of Breath ED Provider: Ry Garcia Dx/Rx/DC Orders Clinical Impression: Cough, Shortness of breath Prescriptions: New prednisone 50 mg tablet 50 mg PO DAILY 4 Days Qty: 4 0RF No Action omeprazole 40 mg capsule,delayed release(DR/EC) 40 mg PO DAILY albuterol sulfate [Ventolin HFA] 90 mcg/actuation HFA aerosol inhaler 1 - 2 puff inhalation Q4H PRN PRN (Reason: Wheezing) Qty: 1 0RF naproxen sodium [Aleve] 220 mg capsule 220 mg PO DAILY loratadine [Allergy Relief (loratadine)] 10 mg tablet 10 mg PO DAILY Primary Care Provider: Ian Mon Referrals: Ian Mon MD [Primary Care Provider] - Activity Restrictions/Additional Instructions: Follow-up with your doctor in outpatient setting. Take steroids as prescribed. Use inhalers and breathing treatments at home as prescribed. Return with any other concerns. Your blood work did not show any acute findings here today. You likely have a viral illness causing your symptoms. Print Language: Israeli Disposition Disposition: Home, Self Care What to do if you have Problems For any increased pain, shortness of breath, bleeding, nausea or vomiting, chestpain, or any unexpected problems, contact your Primary Care Provider. Call [facility] ([phone]) or report to the closest Emergency Room. Call 911 if necessary. 02/12/25 1812 <Electronically signed by Ry Garcia DO> Cosigner Signature (if applicable): CC: Dr. Ian Mon MD ~ Signed [facility] Work Phone: 1(544) 282-395204-25-2025 Discharge summary [facility] Medical Records Department [address] [place] [address] Emergency Department Summary 01/11/25 MR#: [id number] Acct: [id number] Name: ARLET NAVARRO Rep #:[id number] : 1985 39 From: Rufus Miramontes MD PCP: Dr. Ian Mon MD Status:REG ER Location: ED HPI History of Present Illness Chief Complaint: Flank Pain Narrative Narrative: 39-year-old female past surgical history of hysterectomy 10 years ago, previously of kidney stones and ureterolithiasis, sees Dr. Nair. She presents with 4 days of what started as left flank pain and now has bilateral flank pain. She thinks she may have a bladder infection on top of the kidney stone. She denies any fevers or chills, no nausea or vomiting but complains of bilateral flank pain. She has had intermittent hematuria over the last 4 days as well. She states it has been almost a year since she had her last kidney stone and she has been drinking more water. This feels similar. No exacerbating or alleviating factors. [facility] Medical History History of recurrent UTI (urinary tract infection) Allergic rhinitis Former tobacco use Kidney stones Home Medications ?Medication ?Instructions ?Recorded ?Last Taken ?Type omeprazole 40 mg capsule,delayed 40 mg PO DAILY gerd 0 12/09/21 10/23/24 History release albuterol sulfate 90 mcg/actuation 1 - 2 puff inhalati on Q4H PRN PRN 04/04/23 10/24/24 Rx aerosol inhaler (Ventolin HFA) Wheezing #1 device loratadine 10 mg tablet (Allergy 10 mg PO DAILY allerg y 10/24/24 10/23/24 History Relief (loratadine)) melatonin 5 mg capsule 5 mg PO QHS sleep 10/24/24 0 10/23/24 History prednisone 20 mg tablet 40 mg (2 x 20 mg) PO DAILY # 10 tabs 10/26/24 Unknown Rx oxycodone 5 mg tablet 5 mg PO Q6H PRN pain 3 days #12 01/11/25 Unknown Rx tabs Allergy/AdvReac Type Severity Reaction Status Date / Time hydrocodone bitartrate (From Allergy Hives Verified 01/11/25 17:10 [place]) Family History Mother COPD (chronic obstructive pulmonary disease) Lung cancer Surgical History History of umbilical hernia repair History of carpal tunnel surgery History of hysterectomy Social History household members: children Smoking Status: Former smoker how long ago did patient quit smoking: Quit ~ 1 year prior to 10/24/24 evaluation, smoked ~ 1 ppd since teen. alcohol intake: never substance use type: does not use ROS ROS ED ROS Narrative Review of systems positive for left flank pain greater than right. Positive intermittent hematuria x 4 days. More left flank pain and urinary frequency over the last 4 days as well. No fevers or chills, no nausea or vomiting. No problems with bowel movements. EXAM Physical Exam Narrative Exam Narrative: Afebrile. Vital signs noted. Nontoxic-appearing. Cardiovascular examination reveals a regular rate and rhythm. Lungs are clear to auscultation bilaterally. Abdomen is soft and nontender without guarding or rebound. Positive bowel sounds. Questionable CVA tenderness, left. Neurological examination nonfocal and nonlateralizing. Const Vital Signs: 01/11/25 17:08 01/11/25 18:10 Temperature 97.5 F L 97.8 F Temperature Source Oral Oral Pulse Rate 84 72 Respiratory Rate 16 16 Blood Pressure 111/80 107/74 Blood Pressure Mean 90 85 Pulse Ox 98 96 Oxygen Delivery Method Room Air Room Air MDM MDM MDM Narrative Medical decision making narrative: The differential diagnosis includes but not limited to ureterolithiasis versus pyelonephritis versus ureterolithiasis/ureteral colic with cystitis. Comprehensive workup was pursued. She was administered morphine and Toradol foranalgesia. I do not feel that a CT is indicated as she is status post hys terectomy remotely. CBC and BMP will be obtained as well as urinalysis and CT imaging without contrast. I reviewed her prior records. I reviewed her laboratory work today and she has a white count of 11.6 which I think is nonspecificand she has chronic leukocytosis when compared to prior laboratories. BMP is remarkable for normal BUN of 13 and creatinine low at 0.66. Urinalysis shows 150 occult blood with 0 WBCs and RBCs 10-25. I do not feel antibiotics are indicated. On review of the CT of the abdomen and pelvis without contrast, she has a 3 mm left renal stone in the renal pelvis, but no evidence of obstruction. At this point in time, repeat examination shows her resting comfortably on the cot. I feel she can be discharged to follow-up with her urologist. She was written for 12 oxycodone tablets which in review of her prescription monitoring program she has tolerated previously. I feel she can be discharged to follow-up. Return instructions to the emergency department were reviewed. Dispositionis discharged home in stable condition. History & Record Review Discussion w/independent historian: Patient Additional record(s) reviewed:: Prior ED visit (Received morphine in the past.) and Prior labs Lab Data Attestation: I reviewed the patient's lab results. Labs: Laboratory Results - last 24 hr 01/11/25 17:41 WBC 11.6 H RBC 4.87 Hgb 13.9 Hct 41.6 MCV 85.4 MCH 28.5 MCHC 33.4 RDW Std Deviation 39.3 RDW Coeff of Raeann 12.7 Plt Count 269 MPV 10.9 Immature Gran % (Auto) 0.500 Neut % (Auto) 53.5 Lymph % (Auto) 35.6 [place] % (Auto) 6.5 Eos % (Auto) 3.4 Baso % (Auto) 0.5 Absolute Neuts (auto) 6.2 Absolute Lymphs (auto) 4.14 Nucleated RBC % 0 Platelet Estimate ADEQUATE Sodium 140 Potassium 3.4 Chloride 106 Carbon Dioxide 24.3 Anion Gap 10 BUN 13 Creatinine 0.66 L Estim Creat Clear Calc 108.93 Est GFR (MDRD) Non-Af 115 BUN/Creatinine Ratio 19.0 Glucose 85 Calcium 8.9 Urine Color Yellow Urine Clarity Clear Urine pH 6.0 Ur Specific [place] 1.025 Urine Protein 30 H Urine Glucose (UA) Normal Urine Ketones Negative Urine Occult Blood 150 H Urine Nitrite Negative Urine Bilirubin Negative Urine Urobilinogen 1 H Ur Leukocyte Esterase Negative Urine RBC 10-25 SEEN Urine WBC 0 SEEN Ur Squamous Epith Cells 0-5 SEEN Urine Bacteria RARE Urine Mucus 1+ Radiography Diagnostic Testing: Clinical Impression(s) from Imaging Studies Abdomen/Pelvis CT 01/11/25 17:53 IMPRESSION: 1. Small esophageal hiatal hernia. 2. Hepatomegaly with fatty infiltration. 3. Umbilical hernia containing fat. 4. Fecal retention in the colon consistent with constipation. 5. 3 mm left renal pelvic calculus without obstruction. [facility] Chief Complaint: Flank Pain Other Complaint: Complaint ED Provider: Rufus Miramontes Dx/Rx/DC Orders Clinical Impression: Kidney stones, Flank pain, Hematuria, Dysuria Instructions: ED Dysuria, Uncertain Cause (Adult), ED Flank Pain, Uncertain Cause, ED Hematuria Prescriptions: New oxycodone 5 mg tablet 5 mg PO Q6H PRN (Reason: pain) 3 Days Qty: 12 0RF No Action omeprazole 40 mg capsule,delayed release(DR/EC) 40 mg PO DAILY albuterol sulfate [Ventolin HFA] 90 mcg/actuation HFA aerosol inhaler 1 - 2 puff inhalation Q4H PRN PRN (Reason: Wheezing) Qty: 1 0RF loratadine [Allergy Relief (loratadine)] 10 mg tablet 10 mg PO DAILY melatonin 5 mg capsule 5 mg PO QHS prednisone 20 mg tablet 40 mg PO DAILY Qty: 10 0RF Primary Care Provider: Ian Mon Referrals: Kierra Nair MD [Med Staff - Active Staff] - As soon as possible Ian Mon MD [Primary Care Provider] - Activity Restrictions/Additional Instructions: Follow-up with urology as soon as possible. Return with fever, increased pain, new or worsening symptoms. Print Language: Israeli Disposition Disposition: Home, Self Care What to do if you have Problems For any increased pain, shortness of breath, bleeding, nausea or vomiting, chestpain, or any unexpected problems, contact your Primary Care Provider. Call [facility] ([phone]) or report tothe closest Emergency Room. Call 911 if necessary. 01/11/252023 Cosigner Signature (if applicable): CC: Dr. Ian Mon MD ~ Signed [facility]04-25-2025 Radiology Diagnostic study note [facility] Imaging Services [address] [place], [place] [address] Abdomen/Pelvis without Cont MR#: [id number] Acct: [id number] Name: ARLET NAVARRO Rep #: [id number] : 1985 F 39 From: Eugenie Black MD PCP: Dr. Ian Mon MD Status: REG ER Study:Abdomen/Pelvis without Cont Date of Exa m: 01/11/25 Exam# [id number] Ordering Dr: Rufus Miramontes MD EXAM: CT Abdomen and Pelvis Without Intravenous Contrast CLINICAL INDICATION: KIDNEY STONE TECHNIQUE: Axial computed tomography images of the abdomen and pelvis without intravenous contrast.This CT exam was performed using one or more of the following dose reduction techniques: automated exposure control, adjustment of the mA and/or kV according to patient size, and/or use of iterative reconstruction technique. COMPARISON: No relevant prior studies available. FINDINGS: LUNG BASES: Unremarkable. No mass. No consolidation. MEDIASTINUM: Small esophageal hiatal hernia. ABDOMEN: LIVER: Hepatomegaly with fatty infiltration. GALLBLADDER AND BILE DUCTS: Unremarkable. No calcified stones. No ductal dilation. PANCREAS: Unremarkable. No ductal dilation. SPLEEN: Unremarkable. No splenomegaly. ADRENALS: Unremarkable. No mass. KIDNEYS AND URETERS: 3 mm left renal pelvic calculus without obstruction. STOMACH AND BOWEL: Fecal retention in the colon consistent with constipation. No obstruction. No mucosal thickening. PELVIS: APPENDIX: No findings to suggest acute appendicitis. BLADDER: Unremarkable. No stones. REPRODUCTIVE: Unremarkable as visualized. ABDOMEN and PELVIS: INTRAPERITONEAL SPACE: Unremarkable. No free air. No significant fluid collection. BONES/JOINTS: No acute fracture. No dislocation. SOFT TISSUES: Umbilical hernia containing fat. VASCULATURE: Unremarkable. No abdominal aortic aneurysm. LYMPH NODES: Unremarkable. No enlarged lymph nodes. CT/Abdomen/Pelvis without Cont IMPRESSION: 1. Small esophageal hiatal hernia. 2. Hepatomegaly with fatty infiltration. 3. Umbilical hernia containing fat. 4. Fecal retention in the colon consistent with constipation. 5. 3 mm left renal pelvic calculus without obstruction. Reading Location: [facility] CC: Dr. Rufus Miramontes MD; Dr. Ian Mon MD ~ Surveying Crew Stake Runner: Signed [facility]04-25-2025 Discharge summary Author Rufus ReodicUC Health Note Date/Time January 11, 2025 8:2 4pm [facility] Medical Records Department [address] [place] [address] Emergency Department Summary 01/11/25 MR#: [id number] Acct: [id number] Name: ARLET NAVARRO Rep #:[id number] : 1985 39 From: Rufus Miramontes MD PCP: Dr. Ian Mon MD Status:REG ER Location: ED HPI History of Present Illness Chief Complaint: Flank Pain Narrative Narrative: 39-year-old female past surgical history of hysterectomy 10 years ago, previously of kidney stones and ureterolithiasis, sees Dr. Nair. She presents with 4 days of what started as left flank pain and now has bilateral flank pain. She thinks she may have a bladder infection on top of the kidney stone. She denies any fevers or chills, no nausea or vomiting but complains of bilateral flank pain. She has had intermittent hematuria over the last 4 days as well. She states it has been almost a year since she had her last kidney stone and she has been drinking more water. This feels similar. No exacerbating or alleviating factors. [facility] Medical History History of recurrent UTI (urinary tract infection) Allergic rhinitis Former tobacco use Kidney stones Home Medications ?Medication ?Instructions ?Recorded ?Last Taken ?Type omeprazole 40 mg capsule,delayed 40 mg PO DAILY gerd 0 12/09/21 10/23/24 History release albuterol sulfate 90 mcg/actuation 1 - 2 puff inhalati on Q4H PRN PRN 04/04/23 10/24/24 Rx aerosol inhaler (Ventolin HFA) Wheezing #1 device loratadine 10 mg tablet (Allergy 10 mg PO DAILY allerg y 10/24/24 10/23/24 History Relief (loratadine)) melatonin 5 mg capsule 5 mg PO QHS sleep 10/24/24 0 10/23/24 History prednisone 20 mg tablet 40 mg (2 x 20 mg) PO DAILY # 10 tabs 10/26/24 Unknown Rx oxycodone 5 mg tablet 5 mg PO Q6H PRN pain 3 days #12 01/11/25 Unknown Rx tabs Allergy/AdvReac Type Severity Reaction Status Date / Time hydrocodone bitartrate (From Allergy Hives Verified 01/11/25 17:10 [place]) Family History Mother COPD (chronic obstructive pulmonary disease) Lung cancer Surgical History History of umbilical hernia repair History of carpal tunnel surgery History of hysterectomy Social History household members: children Smoking Status: Former smoker how long ago did patient quit smoking: Quit ~ 1 year prior to 10/24/24 evaluation, smoked ~ 1 ppd since teen. alcohol intake: never substance use type: does not use ROS ROS ED ROS Narrative Review of systems positive for left flank pain greater than right. Positive intermittent hematuria x 4 days. More left flank pain and urinary frequency over the last 4 days as well. No fevers or chills, no nausea or vomiting. No problems with bowel movements. EXAM Physical Exam Narrative Exam Narrative: Afebrile. Vital signs noted. Nontoxic-appearing. Cardiovascular examination reveals a regular rate and rhythm. Lungs are clear to auscultation bilaterally. Abdomen is soft and nontender without guarding or rebound. Positive bowel sounds. Questionable CVA tenderness, left. Neurological examination nonfocal and nonlateralizing. Const Vital Signs: 01/11/25 17:08 01/11/25 18:10 Temperature 97.5 F L 97.8 F Temperature Source Oral Oral Pulse Rate 84 72 Respiratory Rate 16 16 Blood Pressure 111/80 107/74 Blood Pressure Mean 90 85 Pulse Ox 98 96 Oxygen Delivery Method Room Air Room Air MDM MDM MDM Narrative Medical decision making narrative: The differential diagnosis includes but not limited to ureterolithiasis versus pyelonephritis versus ureterolithiasis/ureteral colic with cystitis. Comprehensive workup was pursued. She was administered morphine and Toradol foranalgesia. I do not feel that a CT is indicated as she is status post hysterectomy remotely. CBC and BMP will be obtained as well as urinalysis and CT imaging without contrast. I reviewed her prior records. I reviewed her laboratory work today and she has a white count of 11.6 which I think is nonspecific and she has chronic leukocytosis when compared to prior laboratories. BMP is remarkable for normal BUN of 13 and creatinine low at 0.66. Urinalysis shows 150 occult blood with 0 WBCs and RBCs 10-25. I do not feel antibiotics are indicated. On review of the CT of the abdomen and pelvis without contrast, she has a 3 mm left renal stone in the renal pelvis, but no evidence of obstruction. At this point in time, repeat examination shows her resting comfortably on the cot. I feel she can be discharged to follow-up with her urologist. She was written for 12 oxycodone tablets which in review of her prescription monitoring program she has tolerated previously. I feel she can be discharged to follow-up. Return instructions to the emergency department were reviewed. Dispositionis discharged home in stable condition. History & Record Review Discussion w/independent historian: Patient Additional record(s) reviewed:: Prior ED visit (Received morphine in the past.) and Prior labs Lab Data Attestation: I reviewed the patient's lab results. Labs: Laboratory Results - last 24 hr 01/11/25 17:41 WBC 11.6 H RBC 4.87 Hgb 13.9 Hct 41.6 MCV 85.4 MCH 28.5 MCHC 33.4 RDW Std Deviation 39.3 RDW Coeff of Raeann 12.7 Plt Count 269 MPV 10.9 Immature Gran % (Auto) 0.500 Neut % (Auto) 53.5 Lymph % (Auto) 35.6 [place] % (Auto) 6.5 Eos % (Auto) 3.4 Baso % (Auto) 0.5 Absolute Neuts (auto) 6.2 Absolute Lymphs (auto) 4.14 Nucleated RBC % 0 Platelet Estimate ADEQUATE Sodium 140 Potassium 3.4 Chloride 106 Carbon Dioxide 24.3 Anion Gap 10 BUN 13 Creatinine 0.66 L Estim Creat Clear Calc 108.93 Est GFR (MDRD) Non-Af 115 BUN/Creatinine Ratio 19.0 Glucose 85 Calcium 8.9 Urine Color Yellow Urine Clarity Clear Urine pH 6.0 Ur Specific [place] 1.025 Urine Protein 30 H Urine Glucose (UA) Normal Urine Ketones Negative Urine Occult Blood 150 H Urine Nitrite Negative Urine Bilirubin Negative Urine Urobilinogen 1 H Ur Leukocyte Esterase Negative Urine RBC 10-25 SEEN Urine WBC 0 SEEN Ur Squamous Epith Cells 0-5 SEEN Urine Bacteria RARE Urine Mucus 1+ Radiography Diagnostic Testing: Clinical Impression(s) from Imaging Studies Abdomen/Pelvis CT 01/11/25 17:53 IMPRESSION: 1. Small esophageal hiatal hernia. 2. Hepatomegaly with fatty infiltration. 3. Umbilical hernia containing fat. 4. Fecal retention in the colon consistent with constipation. 5. 3 mm left renal pelvic calculus without obstruction. [facility] T[facility] Chief Complaint: Flank Pain Other Complaint: Complaint ED Provider: Rufus Miramontes Dx/Rx/DC Orders Clinical Impression: Kidney stones, Flank pain, Hematuria, Dysuria Instructions: ED Dysuria, Uncertain Cause (Adult), ED Flank Pain, Uncertain Cause, ED Hematuria Prescriptions: New oxycodone 5 mg tablet 5 mg PO Q6H PRN (Reason: pain) 3 Days Qty: 12 0RF No Action omeprazole 40 mg capsule,delayed release(DR/EC) 40 mg PO DAILY albuterol sulfate [Ventolin HFA] 90 mcg/actuation HFA aerosol inhaler 1 - 2 puff inhalation Q4H PRN PRN (Reason: Wheezing) Qty: 1 0RF loratadine [Allergy Relief (loratadine)] 10 mg tablet 10 mg PO DAILY melatonin 5 mg capsule 5 mg PO QHS prednisone 20 mg tablet 40 mg PO DAILY Qty: 10 0RF Primary Care Provider: Ian Mon Referrals: Kierra Nair MD [Med Staff - Active Staff] - As soon as possible Ian Mon MD [Primary Care Provider] - Activity Restrictions/Additional Instructions: Follow-up with urology as soon as possible. Return with fever, increased pain, new or worsening symptoms. Print Language: Israeli Disposition Disposition: Home, Self Care What to do if you have Problems For any increased pain, shortness of breath, bleeding, nausea or vomiting, chestpain, or any unexpected problems, contact your Primary Care Provider. Call [facility] ([phone]) or report to the closest Emergency Room. Call 911 if necessary. 01/11/252023 <Electronically signed by Rufus Miramontes MD> Cosigner Signature (if applicable): CC: Dr. Ian Mon MD ~ Signed [facility] Work Phone: 1(109) 567-728003-13-2025 Telephone encounter Note* Telephone Encounter - Liz Juarez LPN - 11/29/2024 3:48 PM EDT Attempted to call patient VM full. message sent updating on results. Liz Juarez LPN [facility]03-13-2025 Miscellaneous Notes* Telephone Encounter - Liz Juarez LPN - 11/29/2024 3:48 PM EDT Attempted to call patient VM full. message sent updating on results. Liz Juarez LPN * Telephone Encounter - Liz Juarez LPN - 11/29/2024 3:46 PM EDT ----- Message from Tootie Mujica APRN.CARDIAC REHABILITATION PROGRAM DIRECTOR sent at 11/28/2024 2:33 PM EDT ----- Chest xray is normal. Tootie Mujica APRN.CARDIAC REHABILITATION PROGRAM DIRECTOR documented in this encounterF[facility]03-[facility] Telephone encounter Note * Telephone Encounter - Liz Juarez LPN - 11/29/2024 3:46 PM EDT ----- Message from Tootie Mujica APRN.CARDIAC REHABILITATION PROGRAM DIRECTOR sent at 11/28/2024 2:33 PM EDT ----- Chest xray is normal. Tootie Mujica APRN.CARDIAC REHABILITATION PROGRAM DIRECTOR [facility]03-12-2025 History of Present illness Narrative* Paulina Zhou, RT(R) - 11/28/2024 2:00 PM EDT Radiology Service Progress Note PATIENT NAME: Arlet Navarro DATE OF SERVICE: November 28, 2024 TIME: 1:54 PM PATIENT IDENTITY VERIFICATION COMPLETED USING TWO (2) IDENTIFIERS: Name and Date of confirmedby patient verbally. FALL SCREENING: Has the patient had 2 falls in the last year or 1 fall with injury or currently using an Ambulatory Assistive Device (Walker, Cane, Wheelchair, Crutches, etc.)? No PATIENT GENDER DATA: Assigned female at . status: : No status:NO. PATIENT RELEVANT IMPLANT DATA REVIEWED: Not Applicable PATIENT PRESENTS WITH AN IMPLANTABLE OR ATTACHED FORESTRY PATROLMAN: No RADIOLOGY DEPARTMENT: General X-ray: Exam(s) Completed: Chest X-Ray PERIPHERAL IV DATA: Not applicable SIGNED BY: RT Cherelle(Paul) November 28, 2024 1:54 PM documented in this encounterF[facility]03-12-2025 NoteHNO ID: [id number] Author: PAULINA ZHOU RT(R) Service: Radiology Author Type: Technologist Type: Progress Notes Filed: 11/28/2024 14:02 Note Text: Radiology Service Progress Note PATIENT NAME: Arlet Navarro DATE OF SERVICE: November 28, 2024 TIME: 1:54 PM PATIENT IDENTITY VERIFICATION COMPLETED USING TWO (2) IDENTIFIERS: Name and Date of confirmed by patient verbally. FALL SCREENING: Has the patient had 2 falls in the last year or 1 fall with injury or currently using an Ambulatory Assistive Device (Walker, Cane, Wheelchair, Crutches, etc.)? No PATIENT GENDER DATA: Assigned female at . status: : No status: NO. PATIENT RELEVANT IMPLANT DATA REVIEWED: Not Applicable PATIENT PRESENTS WITH AN IMPLANTABLE OR ATTACHED FORESTRY PATROLMAN: No RADIOLOGY DEPARTMENT: General X-ray: Exam(s) Completed: Chest X-Ray PERIPHERAL IV DATA: Not applicable SIGNED BY: RT Cherelle(Paul) November 28, 2024 1:54 [facility]03-12-2025 Telephone encounter Note* Telephone Encounter - Tootie Mujica APRN.CNP - 11/28/2024 1:55 PM EDT Please call [facility] and let them know to cancel the albuterol syrup. I sent over new prescription for nebulizer solution Tootie Mujica APRN.CNP [facility]03-12-2025 Miscellaneous Notes* Telephone Encounter - Tootie Mujica APRN.CNP - 11/28/2024 1:55 PM EDT Please call [facility] and let them know to cancel the albuterol syrup. I sent over new prescription for nebulizer solution Tootie Mujica APRN.CNP documented in this encounterF[facility]03-12-2025 History of Present illness Narrative* Tootie Mujica APRN.CNP - 11/28/2024 1:20 PM EDT 11/28/2024 Patient presents with: Short Of Breath SUBJECTIVE: This is a 39 year old that is here today for Above Complaints. Completed prednisone yesterday after being [facility] are on for URI symptoms. Negative for COVID-19, RSV and Influenza at that time. Did test Positive for RSV end of September. Did feelsome improvement when taking the prednisone however still with some SOB with exertion. Admits to wheezing. Using albuterol inhaler several times a day with mild relief. No night use of albuterol. Drycough. Denies fevers, chills, other URI symptoms, dyspnea or chest pain PAST MEDICAL HISTORY Diagnosis Date Arthritis Kidney stones Nocturnal hypoxia ZOFIA (obstructive sleep apnea) Umbilical hernia 2013 ALLERGIES [place] [Hydrocodone-Acetaminophen] MEDICATIONS Current Outpatient Medications Medication Sig omeprazole (PRILOSEC) 40 mg capsule Take 1 capsule by mouth once daily. albuterol HFA (PROVENTIL HFA, VENTOLIN HFA) 90 mcg/actuation inhaler Inhale 2 Puffs as instructed every 4 hours as needed for wheezing/shortness of breath. loratadine (CLARITIN) 10 mg tablet Take 1 tablet by mouth once daily. naproxen (NAPROSYN) 500 mg tablet TWICE DAILY NEEDED albuterol HFA (PROAIR HFA) 90 mcg/actuation inhaler Inhale 2 Puffs as instructed every 6 hours as needed. melatonin 3 mg tablet Take 3 mg by mouth once daily. No current facility-administered medications for this visit. Medications and allergies reviewed by this provider. SOCIAL HISTORY Social History Tobacco Use Smoking status: Former Current packs/day: 0.50 Average packs/day: 0.5 packs/day for 17.0 years (8.5 ttl pk-yrs) Types: Cigarettes Smokeless tobacco: Never Vaping Use Vaping status: Never Used Substance Use Topics Alcohol use: No Drug use: No REVIEW OF SYSTEMS All other reviewed and negative other than HPI. OBJECTIVE: BP 122/84 Pulse 101 Temp 36.8 C (98.3 F) Resp 24 Ht 149.1 cm (4' 10.7) Wt 79.7 kg (175 lb 9.6 oz) SpO2 94% BMI 35.83 kg/m . Vital signs reviewed by this provider. APPEARANCE Well appearing, alert, in no acute distress, well-hydrated, well nourished. EYES conjunctiva and sclera normal. HEART normal S1 and S2, no murmurs, no gallops, no JVD appreciated and Rate tachycardia LUNG Diminished lungs posteriorly throughout. Scattered faint expiratory wheezes. Able to speak in full sentences without difficulty SKIN Skin color, texture, turgor normal, no suspicious rashes or lesions to exposed skin Depression Screening Never done Anxiety Screening Never done Hepatitis C Screening Never done HIV Screening Never done DTaP,Tdap,Td Vaccine(1 - Tdap) Never done Hepatitis B Vaccine(1 of 3 - 19+ 3-dose series) Never done Influenza Vaccine(1) due on 05/20/2024 Covid-19 Vaccine(2023- season) due on 05/20/2024 Cervical Cancer Screening due on 10/13/2025 ASSESSMENT/PLAN: 1. SOB (shortness of breath) - ICD9: 786.05, ICD10: R06.02 (primary diagnosis) - no red flag symptoms or exam findings - red lag symptoms discussed, verbalizes understanding - BUDESONIDE-FORMOTEROL HFA 160 MCG-4.5 MCG/ACTUATION AEROSOL INHALER - XR CHEST 2V FRONTAL/LAT - PREDNISONE 20 MG TABLET - ALBUTEROL SULFATE 2.5 MG/3 ML (0.083 %) SOLUTION FOR NEBULIZATION - follow-up for physical, sooner if nit improving to ER with red flag symptoms 2. Wheezing - ICD9: 786.07, ICD10: R06.2 - plan as in #1 - BUDESONIDE-FORMOTEROL HFA 160 MCG-4.5 MCG/ACTUATION AEROSOL INHALER - XR CHEST 2V FRONTAL/LAT - PREDNISONE 20 MG TABLET - ALBUTEROL SULFATE 2.5 MG/3 ML (0.083 %) SOLUTION FOR NEBULIZATION Tootie Mujica APRN.CNP Prescription instructions reviewed with patient as applicable. Patient advised if symptoms do not improve or if symptoms worsen sooner, to contact their primary care physician. Potential red flag symptoms discussed with the patient. Reviewed appropriate action plan to take if red flag symptoms occur. Patient agreeable to treatment plan. Medical Decision Making: Problems: Moderate: Acute illness with systemic symptoms Risk: Moderate: Drug management Medical Decision Making Level: 4 - Moderate documented in [facility] encounterF[facility] NoteHNO ID: [id number] Author: TOOTIE MUJICA APRN.CNP Service: ? Author Type: Nurse Practitioner Type: Progress Notes Filed: 11/28/2024 14:00 Note Text: 11/28/2024 Patient presents with: Short Of Breath SUBJECTIVE: This is a 39 year old that is here today for Above Complaints. Completed prednisone yesterday after being [facility] are on for URI symptoms. Negative for COVID-19, RSV and Influenza at that time. Did test Positive for RSV end of September. Did feel some improvement when taking the prednisone however still with some SOB with exertion. Admits to wheezing. Using albuterol inhaler several times a day with mild relief. No night use of albuterol. Dry cough. Denies fevers, chills, other URI symptoms, dyspnea or chest pain PAST MEDICAL HISTORY Diagnosis Date Arthritis Kidney stones Nocturnal hypoxia ZOFIA (obstructive sleep apnea) Umbilical hernia 2013 ALLERGIES [place] [Hydrocodone-Acetaminophen] MEDICATIONS Current Outpatient Medications Medication Sig omeprazole (PRILOSEC) 40 mg capsule Take 1 capsule by mouth once daily. albuterol HFA (PROVENTIL HFA, VENTOLIN HFA) 90 mcg/actuation inhaler Inhale 2 Puffs as instructed every 4 hours as needed for wheezing/shortness of breath. loratadine (CLARITIN) 10 mg tablet Take 1 tablet by mouth once daily. naproxen (NAPROSYN) 500 mg tablet TWICE DAILY NEEDED albuterol HFA (PROAIR HFA) 90 mcg/actuation inhaler Inhale 2 Puffs as instructed every 6 hours as needed. melatonin 3 mg tablet Take 3 mg by mouth once daily. No current facility-administered medications for this visit. Medications and allergies reviewed by this provider. SOCIAL HISTORY Social History Tobacco Use Smoking status: Former Current packs/day: 0.50 Average packs/day: 0.5 packs/day for 17.0 years (8.5 ttl pk-yrs) Types: Cigarettes Smokeless tobacco: Never Vaping Use Vaping status: Never Used Substance Use Topics Alcohol use: No Drug use: No REVIEW OF SYSTEMS All other reviewed and negative other than HPI. OBJECTIVE: BP 122/84 Pulse 101 Temp 36.8 ?C (98.3 ?F) Resp 24 Ht 149.1 cm (4' 10.7) Wt 79.7 kg (175 lb 9.6 oz) SpO2 94% BMI 35.83 kg/m? . Vital signs reviewed by this provider. APPEARANCE Well appearing, alert, in no acute distress, well-hydrated, well nourished. EYES conjunctiva and sclera normal. HEART normal S1 and S2, no murmurs, no gallops, no JVD appreciated and Rate tachycardia LUNG Diminished lungs posteriorly throughout. Scattered faint expiratory wheezes. Able to speak in full sentences without difficulty SKIN Skin color, texture, turgor normal, no suspicious rashes or lesions to exposed skin Depression Screening Never done Anxiety Screening Never done Hepatitis C Screening Never done HIV Screening Never done DTaP,Tdap,Td Vaccine(1 - Tdap) Never done Hepatitis B Vaccine(1 of 3 - 19+ 3-dose series) Never done Influenza Vaccine(1) due on 05/20/2024 Covid-19 Vaccine(2023- season) due on 05/20/2024 Cervical Cancer Screening due on 10/13/2025 ASSESSMENT/PLAN: 1. SOB (shortness of breath) - ICD9: 786.05, ICD10: R06.02 (primary diagnosis) - no red flag symptoms or exam findings - red lag symptoms discussed, verbalizes understanding - BUDESONIDE-FORMOTEROL HFA 160 MCG-4.5 MCG/ACTUATION AEROSOL INHALER - XR CHEST 2V FRONTAL/LAT - PREDNISONE 20 MG TABLET - ALBUTEROL SULFATE 2.5 MG/3 ML (0.083 %) SOLUTION FOR NEBULIZATION - follow-up for physical, sooner if nit improving to ER with red flag symptoms 2. Wheezing - ICD9: 786.07, ICD10: R06.2 - plan as in #1 - BUDESONIDE-FORMOTEROL HFA 160 MCG-4.5 MCG/ACTUATION AEROSOL INHALER - XR CHEST 2V FRONTAL/LAT - PREDNISONE 20 MG TABLET - ALBUTEROL SULFATE 2.5 MG/3 ML (0.083 %) SOLUTION FOR NEBULIZATION Tootie Mujica APRN.CNP Prescription instructions reviewed with patient as applicable. Patient advised if symptoms do not improve or if symptoms worsen sooner, to contact their primary care physician. Potential red flag symptoms discussed with the patient. Reviewed appropriate action plan to take if red flag symptoms occur. Patient agreeable to treatment plan. Medical Decision Making: Problems: Moderate: Acute illness with systemic symptoms Risk: Moderate: Drug management Medical Decision Making Level: 4 - [facility]erate[facility] Telephone encounter Note* Telephone Encounter - Tootie Mujica APRN.CNP - 11/21/2024 12:15 PM EST Prescription sent for patient. Tootie Mujica APRN.CNP [facility]03-05-2025 Miscellaneous Notes* Telephone Encounter - Tootie Mujica APRN.CNP - 11/21/2024 12:15 PM EST Prescription sent for patient. Tootie Mujica APRN.CNP * Telephone Encounter - Wilda Rosado RN - 11/21/2024 11:14 AM EST Pts appointment switched to Physical on 11/28/24. Pt asking if provider could send in a short term of Omeprazole to [facility] in [place]. The patient has been identified by name and date of : Yes Caregiver verified no other encounters exist for this prescription request: Yes Caregiver confirmed with patient/requestor that no other refills are due, in the near future, with this provider at this time: Yes The last office visit in the department: 10/26/2023 Does the patient have a future office visit with this provider/department: Yes 11/28/2024 Requested Prescriptions Pending Prescriptions Disp Refills omeprazole (PRILOSEC) 40 mg capsule 30 capsule 0 Sig: Take 1 capsule by mouth once daily. Wilda Rosado RN November 21, 2024 11:15 AM * Telephone Encounter - Tootie Mujica APRN.CNP - 11/21/2024 8:37 AM EST Patient my chart scheduled for check up. If she needs physical will need to be rescheduled as it isonly slotted for 20 minutes. Tootie Mujica APRN.CNP documented in this encounterF[facility]03-[facility] Telephone encounter Note * Telephone Encounter - Wilda Rosado RN - 11/21/2024 11:14 AM EST Pts appointment switched to Physical on 11/28/24. Pt asking if provider could send in a short term of Omeprazole to [facility] in [place]. The patient has been identified by name and date of : Yes Caregiver verified no other encounters exist for this prescription request: Yes Caregiver confirmed with patient/requestor that no other refills are due, in the near future, with this provider at this time: Yes The last office visit in the department: 10/26/2023 Does the patient have a future office visit with this provider/department: Yes 11/28/2024 Requested Prescriptions Pending Prescriptions Disp Refills omeprazole (PRILOSEC) 40 mg capsule 30 capsule 0 Sig: Take 1 capsule by mouth once daily. Wilda Rosado RN November 21, 2024 11:15 AM [facility]03-05-[facility] Telephone encounter Note* Telephone Encounter - Tootie Mujica APRN.CNP - 11/21/2024 8:37 AM EST Patient my chart scheduled for check up. If she needs physical will need to be rescheduled as it isonly slotted for 20 minutes. Tootie Mujica APRN.CNP [facility]03-04-2025 Instructions* Patient Instructions* Latha Ftaima APRN.CNP - 11/20/2024 5:27 PM EST Encounter for medication refill (primary encounter diagnosis) Viral illness Encounter to obtain excuse from work You have been diagnosed with an illness caused by a virus. Antibiotics do not cure viral infections. If given when not needed, antibiotics can be harmful. The treatments described below will help youfeel better while your body's own defenses are fighting the virus. General Instructions: Drink extra water and juice. Use a cool mist vaporizer or saline nasal spray to relieve congestion. For Sore throats, use ice chips or sore throat spray; lozenges for older children and adults. Specific Medications: Fever, aches, ear pain: Use medicines according to the package instructions or as directed by your healthcare provider. Stop the medication when the symptoms get better. No follow-ups on file. documented in this encounterF[facility]03-04-2025 NoteHNO ID: [id number] Author: LATHA FATIMA APRN.CNP Service: ? Author Type: Nurse Practitioner Type: Progress Notes Filed: 11/20/2024 17:27 Note Text: This note was created using NoteWriter. Subjective Arlet Navarro is a 39 year old female. 39 year old female with PMH GERD and ZOFIA presents for illness Acute onset yesterday +N/V/D +cough +chest congestion Denies dyspnea Denies CP Denies hemoptysis Denies skin rash or lesions. She was seen here yesterday Negative CXR Negative COVID and flu She presents today requesting an albuterol inhaler refill I told him yesterday that I had one, but I don't She is also requesting a note as she was not able to work today Quit smoking one year ago The history is provided by the patient. No american sign language interpreter was used. Flu Like Symptoms This is a new problem. The current episode started yesterday. The problem occurs constantly. The problem has been gradually worsening. Associated symptoms include congestion, coughing, nausea and vomiting. Pertinent negatives include no abdominal pain, anorexia, arthralgias, change in bowel habit, chest pain, chills, diaphoresis, fatigue, fever, headaches, joint swelling, myalgias, neck pain, numbness, rash, sore throat, swollen glands, urinary symptoms, vertigo, visual change or weakness. Nothing aggravates the symptoms. She has tried nothing for the symptoms. The treatment provided no relief. PAST MEDICAL HISTORY Diagnosis Date Arthritis Kidney stones Nocturnal hypoxia ZOFIA (obstructive sleep apnea) Umbilical hernia 2013 PAST SURGICAL HISTORY Procedure Laterality Date HYSTERECTOMY HX 2012 has left ovary LAP UMBILICAL HERNIA REPAIR 2014 NEUROPLASTY AND/TRANSPOSITION ULNAR NERVE ELBOW Right 01/18/2024 REPAIR UMBILICAL HERNIA 07/12/2024 REVISE MEDIAN N/CARPAL TUNNEL SURG Right 01/18/2024 ALLERGIES [place] [Hydrocodone-Acetaminophen] MEDICATIONS predniSONE (DELTASONE) 10 mg tablet Take 5 tablets by mouth once daily for 1 day, THEN 4 tablets once daily for 1 day, THEN 3 tablets once daily for 1 day, THEN 2 tablets once daily for 1 day, THEN 1 tablet once daily for 1 day. omeprazole (PRILOSEC) 40 mg capsule Take 1 capsule by mouth once daily. loratadine (CLARITIN) 10 mg tablet Take 1 tablet by mouth once daily. naproxen (NAPROSYN) 500 mg tablet TWICE DAILY NEEDED albuterol HFA (PROAIR HFA) 90 mcg/actuation inhaler Inhale 2 Puffs as instructed every 6 hours as needed. melatonin 3 mg tablet Take 3 mg by mouth once daily. albuterol HFA (PROVENTIL HFA, VENTOLIN HFA) 90 mcg/actuation inhaler Inhale 2 Puffs as instructed every 4 hours as needed for wheezing/shortness of breath. Inhalational Spacing Device 1 Device one time only for 1 dose. FAMILY HISTORY Problem Relation Age of Onset Breast Cancer Mother Hypertension Mother Heart Mother other (ms) Mother Fibromyalgia Mother No Known Problems Father Diabetes Sister No Known Problems Brother other (MS) Maternal Grandmother Breast Cancer Maternal Grandmother Heart Maternal Grandmother other (hTN) Maternal Grandmother No Known Problems Maternal Grandfather No Known Problems Paternal Grandmother No Known Problems Paternal Grandfather Anesthesia Problems No Family History Social History Tobacco Use Smoking status: Former Current packs/day: 0.50 Average packs/day: 0.5 packs/day for 17.0 years (8.5 ttl pk-yrs) Types: Cigarettes Smokeless tobacco: Never Vaping Use Vaping status: Never Used Substance Use Topics Alcohol use: No Drug use: No Review of Systems Constitutional: Negative for chills, diaphoresis, fatigue and fever. HENT: Positive for congestion. Negative for sore throat. Eyes: Negative for pain, discharge and itching. Respiratory: Positive for cough. Cardiovascular: Negative for chest pain. Gastrointestinal: Positive for diarrhea, nausea and vomiting. Negative for abdominal pain, anorexia and change in bowel habit. Musculoskeletal: Negative for arthralgias, joint swelling, myalgias and neck pain. Skin: Negative for rash. Allergic/Immunologic: Negative for environmental allergies, food allergies and immunocompromised state. Neurological: Negative for dizziness, vertigo, facial asymmetry, weakness, numbness and headaches. Psychiatric/Behavioral: Negative for agitation and behavioral problems. Objective BP 134/86 Pulse 100 Temp 36.8 ?C (98.2 ?F) Resp 16 Wt 79.6 kg (175 lb 7.8 oz) SpO2 95% BMI 37.97 kg/m? Physical Exam Vitals and nursing note reviewed. Constitutional: General: She is not in acute distress. Appearance: Normal appearance. She is normal weight. She is not ill-appearing, toxic-appearing or diaphoretic. Comments: Smiling and laughing Non toxic HENT: Head: Normocephalic and atraumatic. Right Ear: Ear canal and external ear normal. Left Ear: Ear canal and external ear normal. Nose: No congestion or rhinorrhea. Mouth/T (more content not included)...[facility]03-04-[facility] History of Present illness Narrative* Latha Fatima APRN.CARDIAC REHABILITATION PROGRAM DIRECTOR - 11/20/2024 5:11 PM EST This note was created using [employer] Oil[employer]. Subjective Arlet Navarro is a 39 year old female. 39 year old female with PMH GERD and ZOFIA presents for illness Acute onset yesterday +N/V/D +cough +chest congestion Denies dyspnea Denies CP Denies hemoptysis Denies skin rash or lesions. She was seen here yesterday Negative CXR Negative COVID and flu She presents today requesting an albuterol inhaler refill I told him yesterday that I had one, but I don't She is also requesting a note as she was not able to work today Quit smoking one year ago The history is provided by the patient. No american sign language interpreter was used. Flu Like Symptoms This is a new problem. The current episode started yesterday. The problem occurs constantly. The problem has been gradually worsening. Associated symptoms include congestion, coughing, nausea and vomiting. Pertinent negatives include no abdominal pain, anorexia, arthralgias, change in bowel habit, chest pain, chills, diaphoresis, fatigue, fever, headaches, joint swelling, myalgias, neck pain, numbness, rash, sore throat, swollen glands, urinary symptoms, vertigo, visual change or weakness. Nothing aggravates the symptoms. She has tried nothing for the symptoms. The treatment provided no relief. PAST MEDICAL HISTORY Diagnosis Date Arthritis Kidney stones Nocturnal hypoxia ZOFIA (obstructive sleep apnea) Umbilical hernia 2013 PAST SURGICAL HISTORY Procedure Laterality Date HYSTERECTOMY HX 2012 has left ovary LAP UMBILICAL HERNIA REPAIR 2014 NEUROPLASTY &/TRANSPOSITION ULNAR NERVE ELBOW Right 01/18/2024 REPAIR UMBILICAL HERNIA 07/12/2024 REVISE MEDIAN N/CARPAL TUNNEL SURG Right 01/18/2024 ALLERGIES [place] [Hydrocodone-Acetaminophen] MEDICATIONS predniSONE (DELTASONE) 10 mg tablet Take 5 tablets by mouth once daily for 1 day, THEN 4 tablets once daily for 1 day, THEN 3 tablets once daily for 1 day, THEN 2 tablets once daily for 1 day, THEN 1tablet once daily for 1 day. omeprazole (PRILOSEC) 40 mg capsule Take 1 capsule by mouth once daily. loratadine (CLARITIN) 10 mg tablet Take 1 tablet by mouth once daily. naproxen (NAPROSYN) 500 mg tablet TWICE DAILY NEEDED albuterol HFA (PROAIR HFA) 90 mcg/actuation inhaler Inhale 2 Puffs as instructed every 6 hours as needed. melatonin 3 mg tablet Take 3 mg by mouth once daily. albuterol HFA (PROVENTIL HFA, VENTOLIN HFA) 90 mcg/actuation inhaler Inhale 2 Puffs as instructed every 4 hours as needed for wheezing/shortness of breath. Inhalational Spacing Device 1 Device one time only for 1 dose. FAMILY HISTORY Problem Relation Age of Onset Breast Cancer Mother Hypertension Mother Heart Mother other (ms) Mother Fibromyalgia Mother No Known Problems Father Diabetes Sister No Known Problems Brother other (MS) Maternal Grandmother Breast Cancer Maternal Grandmother Heart Maternal Grandmother other (hTN) Maternal Grandmother No Known Problems Maternal Grandfather No Known Problems Paternal Grandmother No Known Problems Paternal Grandfather Anesthesia Problems No Family History Social History Tobacco Use Smoking status: Former Current packs/day: 0.50 Average packs/day: 0.5 packs/day for 17.0 years (8.5 ttl pk-yrs) Types: Cigarettes Smokeless tobacco: Never Vaping Use Vaping status: Never Used Substance Use Topics Alcohol use: No Drug use: No Review of Systems Constitutional: Negative for chills, diaphoresis, fatigue and fever. HENT: Positive for congestion. Negative for sore throat. Eyes: Negative for pain, discharge and itching. Respiratory: Positive for cough. Cardiovascular: Negative for chest pain. Gastrointestinal: Positive for diarrhea, nausea and vomiting. Negative for abdominal pain, anorexiaand change in bowel habit. Musculoskeletal: Negative for arthralgias, joint swelling, myalgias and neck pain. Skin: Negative for rash. Allergic/Immunologic: Negative for environmental allergies, food allergies and immunocompromised state. Neurological: Negative for dizziness, vertigo, facial asymmetry, weakness, numbness and headaches. Psychiatric/Behavioral: Negative for agitation and behavioral problems. Objective BP 134/86 Pulse 100 Temp 36.8 C (98.2 F) Resp 16 Wt 79.6 kg (175 lb 7.8 oz) SpO2 95% BMI 37.97 kg/m Physical Exam Vitals and nursing note reviewed. Constitutional: General: She is not in acute distress. Appearance: Normal appearance. She is normal weight. She is not ill-appearing, toxic-appearing or diaphoretic. Comments: Smiling and laughing Non toxic HENT: Head: Normocephalic and atraumatic. Right Ear: Ear canal and external ear normal. Left Ear: Ear canal and external ear normal. Nose: No congestion or rhinorrhea. Mouth/Throat: Mouth: Mucous membranes are moist. Pharynx: No oropharyngeal exudate or posterior oropharyngeal erythema. Eyes: General: Right eye: No discharge. Left eye: No discharge. Extraocular Movements: Extraocular movements intact. Conjunctiva/sclera: Conjunctivae normal. Pupils: Pupils are equal, round, and reactive to light. Cardiovascular: Rate and Rhythm: Normal rate and regular rhythm. Pulses: Normal pulses. Heart sounds: Normal heart sounds. No murmur heard. No friction rub. Pulmonary: Effort: Pulmonary effort is normal. No respiratory distress. Breath sounds: Normal breath sounds. No stridor. No wheezing, rhonchi or rales. Chest: Chest wall: No tenderness. Abdominal: General: Abdomen is flat. There is no distension. Palpations: Abdomen is soft. There is no mass. Tenderness: There is no abdominal tenderness. There is no right CVA tenderness, left CVA tenderness, guarding or rebound. Hernia: No hernia is present. Musculoskeletal: General: No swelling, tenderness, deformity or signs of injury. Normal range of motion. Cervical back: Normal range of motion and neck supple. No rigidity. Right lower leg: No edema. Left lower leg: No edema. Lymphadenopathy: Cervical: Cervical adenopathy present. Skin: General: Skin is warm and dry. Coloration: Skin is not jaundiced or pale. Findings: No bruising, erythema, lesion or rash. Neurological: General: No focal deficit present. Mental Status: She is alert and oriented to person, place, and time. Cranial Nerves: No cranial nerve deficit. Sensory: No sensory deficit. Motor: No weakness. Coordination: Coordination normal. Gait: Gait normal. Psychiatric: Mood and Affect: Mood normal. Behavior: Behavior normal. Thought Content: Thought content normal. Judgment: Judgment normal. Assessment and Plan ASSESSMENT/PLAN: 1. Encounter for medication refill - ICD9: V68.1, ICD10: Z76.0 (primary diagnosis) Requesting refill on albuterol RX sent over 2. Viral illness - ICD9: 079.99, ICD10: B34.9 X 1 day Seen here yesterday for same Negative COVID/FLU Negative CXR - Discussed viral etiology and rationale for treatment. - Symptomatic treatment with prn analgesia - Supportive care with fluids and rest - The patient may also use OTC cough and cold meds as needed, warm salt water gargles, throat lozenges and/or OTC throat spray as needed, and nasal saline gtts and suction prn. - Follow up in 3-5 days if symptoms persist or sooner if worsening of symptoms 3. Encounter to obtain excuse from work - ICD9: V68.89, ICD10: Z02.89 Work note provided F/U with PCP for continued symptoms Latha Fatima APRN.CARDIAC REHABILITATION PROGRAM DIRECTOR documented in this encounterFayette [facility]03-[facility]25 [id number] (AGENT OF COVID-19) RNA: Not detected INFLUENZA A RNA: Not detected INFLUENZA B RNA: Not detected RESPIRATORY SYNCYTIAL VIRUS (RSV) RNA: Not detectedParkview HealthComment on above:Performed By: #### [id number] ####[facility] LABCLIA [id number] [address] [id number] History of Present illness Narrative* Paulina Zhou RT(R) - 11/19/2024 12:40 PM EST Radiology Service Progress Note PATIENT NAME: Arlet Navarro DATE OF SERVICE: November 19, 2024 TIME: 12:39 PM PATIENT IDENTITY VERIFICATION COMPLETED USING TWO (2) IDENTIFIERS: Name and Date of confirmedby patient verbally. FALL SCREENING: Has the patient had 2 falls in the last year or 1 fall with injury or currently using an Ambulatory Assistive Device (Walker, Cane, Wheelchair, Crutches, etc.)? No PATIENT GENDER DATA: Assigned female at . status: : No status:NO. PATIENT RELEVANT IMPLANT DATA REVIEWED: Not Applicable PATIENT PRESENTS WITH AN IMPLANTABLE OR ATTACHED FORESTRY PATROLMAN: No RADIOLOGY DEPARTMENT: General X-ray: Exam(s) Completed: Chest X-Ray PERIPHERAL IV DATA: Not applicable SIGNED BY: RT Cherelle(Paul) November 19, 2024 12:39 PM documented in this encounterFayette [facility]03-03-2025 NoteHNO ID: [id number] Author: PAULINA ZHOU RT(R) Service: Radiology Author Type: Technologist Type: Progress Notes Filed: 11/19/2024 12:44 Note Text: Radiology Service Progress Note PATIENT NAME: Arlet Navarro DATE OF SERVICE: November 19, 2024 TIME: 12:39 PM PATIENT IDENTITY VERIFICATION COMPLETED USING TWO (2) IDENTIFIERS: Name and Date of confirmed by patient verbally. FALL SCREENING: Has the patient had 2 falls in the last year or 1 fall with injury or currently using an Ambulatory Assistive Device (Walker, Cane, Wheelchair, Crutches, etc.)? No PATIENT GENDER DATA: Assigned female at . status: : No status: NO. PATIENT RELEVANT IMPLANT DATA REVIEWED: Not Applicable PATIENT PRESENTS WITH AN IMPLANTABLE OR ATTACHED FORESTRY PATROLMAN: No RADIOLOGY DEPARTMENT: General X-ray: Exam(s) Completed: Chest X-Ray PERIPHERAL IV DATA: Not applicable SIGNED BY: RT Cherelle(Paul) November 19, 2024 12:39 [facility]03-03-2025 NoteHNO ID: [id number] Author: CECILIA LOVE MD Service: ? Author Type: Physician Type: Progress Notes Filed: 11/19/2024 13:11 Note Text: Patient presents with: Head Congestion: Congestion, SOB and wheezy x 1 day HPI: Feeling sick for admitted 4 days for syncope and RSV 1 month ago. She was feeling back to normal for just a few days until getting sick today. Positive symptoms: Cough, Shortness of breath, Wheezing, Chest tightness, Body Aches, Malaise, Headache, Nausea, Vomiting, Diarrhea, itchy eyes, nasal congestion Negative symptoms: Sore throat, Fever, OTC: ziacam. Albuterol is not helping her breathing. PAST MEDICAL HISTORY Diagnosis Date Arthritis Kidney stones Nocturnal hypoxia ZOFIA (obstructive sleep apnea) Umbilical hernia 2013 MEDICATIONS: Current Outpatient Medications Medication Sig omeprazole (PRILOSEC) 40 mg capsule Take 1 capsule by mouth once daily. loratadine (CLARITIN) 10 mg tablet Take 1 tablet by mouth once daily. naproxen (NAPROSYN) 500 mg tablet TWICE DAILY NEEDED albuterol HFA (PROAIR HFA) 90 mcg/actuation inhaler Inhale 2 Puffs as instructed every 6 hours as needed. (Patient not taking: Reported on 10/10/2024) melatonin 3 mg tablet Take 3 mg by mouth once daily. No current facility-administered medications for this visit. ALLERGIES: ALLERGIES Allergen Reactions [place] [Hydrocodone-* Hives, Swelling VITALS: BP 118/76 Pulse 103 Temp 36.6 ?C (97.8 ?F) (Tympanic) Resp 18 Wt 82.8 kg (182 lb 8.7 oz) SpO2 95% BMI 39.50 kg/m? PHYSICAL EXAM: GEN: mildly ill appearing HEENT: PERRL, EOMI, conjunctiva lightly injected Ears: canals clear. TMs without erythema, bulge, or effusion Sinuses: pressure over sinuses Throat: moist mucous membranes, no erythema, no exudate Neck: supple, no thyromegaly, no lymphadenopathy HEART: regular rate, regular rhythm, no murmurs LUNGS: bilateral expiratory wheezes, loudest in right lower lung; no increased WOB ASSESSMENT/PLAN: 1. Influenza-like symptoms - ICD9: 780.99, ICD10: R68.89 (primary diagnosis) 2. Wheezing - ICD9: 786.07, ICD10: R06.2 - XR CHEST 2V FRONTAL/LAT - negative - INFLUENZA AANDB MOLECULAR (POC) - negative - suspect viral URI - Discussed supportive care treatment with rest, cold medicine, and analgesia. - COVID AND INFLUENZA A/B AND RSV PCR, ROUTINE - PREDNISONE 10 MG TABLET taper Cecilia Love [facility]03-03-2025 History of Present illness Narrative* Cecilia Love MD - 11/19/2024 12:13 PM EST Patient presents with: Head Congestion: Congestion, SOB and wheezy x 1 day HPI: Feeling sick for admitted 4 days for syncope and RSV 1 month ago. She was feeling back to normal for just a few days until getting sick today. Positive symptoms: Cough, Shortness of breath, Wheezing, Chest tightness, Body Aches, Malaise, Headache, Nausea, Vomiting, Diarrhea, itchy eyes, nasal congestion Negative symptoms: Sore throat, Fever, OTC: ziacam. Albuterol is not helping her breathing. PAST MEDICAL HISTORY Diagnosis Date Arthritis Kidney stones Nocturnal hypoxia ZOFIA (obstructive sleep apnea) Umbilical hernia 2013 MEDICATIONS: Current Outpatient Medications Medication Sig omeprazole (PRILOSEC) 40 mg capsule Take 1 capsule by mouth once daily. loratadine (CLARITIN) 10 mg tablet Take 1 tablet by mouth once daily. naproxen (NAPROSYN) 500 mg tablet TWICE DAILY NEEDED albuterol HFA (PROAIR HFA) 90 mcg/actuation inhaler Inhale 2 Puffs as instructed every 6 hours as needed. (Patient not taking: Reported on 10/10/2024) melatonin 3 mg tablet Take 3 mg by mouth once daily. No current facility-administered medications for this visit. ALLERGIES: ALLERGIES Allergen Reactions [place] [Hydrocodone-* Hives, Swelling VITALS: BP 118/76 Pulse 103 Temp 36.6 C (97.8 F) (Tympanic) Resp 18 Wt 82.8 kg (182 lb 8.7 oz) SpO2 95% BMI 39.50 kg/m PHYSICAL EXAM: GEN: mildly ill appearing HEENT: PERRL, EOMI, conjunctiva lightly injected Ears: canals clear. TMs without erythema, bulge, or effusion Sinuses: pressure over sinuses Throat: moist mucous membranes, no erythema, no exudate Neck: supple, no thyromegaly, no lymphadenopathy HEART: regular rate, regular rhythm, no murmurs LUNGS: bilateral expiratory wheezes, loudest in right lower lung; no increased WOB ASSESSMENT/PLAN: 1. Influenza-like symptoms - ICD9: 780.99, ICD10: R68.89 (primary diagnosis) 2. Wheezing - ICD9: 786.07, ICD10: R06.2 - XR CHEST 2V FRONTAL/LAT - negative - INFLUENZA A&B MOLECULAR (POC) - negative - suspect viral URI - Discussed supportive care treatment with rest, cold medicine, and analgesia. - COVID & INFLUENZA A/B & RSV PCR, ROUTINE - PREDNISONE 10 MG TABLET taper Cecilia Love MD [facility] Medical Records Department [address] [place] [address] Discharge Summary 10/26/24 1328 MR#: [id number] Acct: [id number] Name: ARLET NAVARRO Rep #: [id number] : 1985 39 From: Anayeli Mendoza MD PCP: Dr. Ian Mon MD Status:DIS IN Location: [facility] BC278-0 Providers Date of Admission: 10/24/24 Date of Discharge: 10/26/24 Primary Care Physician: Dr. Ian Mon MD Reason For Visit: HYPOXIA, VIRAL SYNDROME Diagnosis Discharge Diagnosis (1) Syncope: Status: Acute Code(s): R55 - Syncope and collapse Plan #Hypoxia due to RSV bronchiolitis * Patient feeling much better. She feels her breathing has improved. She is on IV Solu-Medrol. Breathing treatments bronchodilators. Sputum culture pending. Respiratory panel was negative. * Titrate oxygen to maintain saturation above 90%. * CTA chest was nondiagnostic for PE but showed mediastinal and perihilar lymphadenopathy which is likely reactive due to infection. * Urine for strep and Legionella negative. * #Syncope * Thought to be due to dehydration from orthostatics on account of poor oral intake. * Feels much better this morning. Encourage oral hydration. Fall precautions. #GERD: On PPI DVT prophylaxis: Lovenox Medications at Discharge Home Medications omeprazole 40 mg capsule,delayed release 40 mg PO DAILY gerd 12/09/21 albuterol sulfate 90 mcg/actuation aerosol inhaler (Ventolin HFA) 1 - 2 puff inhalation Q4H PRN PRN Wheezing #1 device 04/04/23 loratadine 10 mg tablet (Allergy Relief (loratadine)) 10 mg PO DAILY allergy 10/24/24 melatonin 5 mg capsule 5 mg PO QHS sleep 10/24/24 prednisone 20 mg tablet 40 mg (2 x 20 mg) PO DAILY #10 tabs 10/26/24 Hospital Course Operations None Procedures None Summary of Care Provided Minutes Spent on Discharge: 45 Hospital Course: Patient is a 39-year-old female with a past medical history as outlined was admitted through the ED on 10/24/2024 with complaint of shortness of breath and flulike symptoms after being recently diagnosed with RSV infection in the urgent care. She had been seen in the ED on 10/12/2024 due to her shortness of breath and diagnosis of RSV bronchiolitis then but was discharged home. However his symptoms did improve but subsequently worsened 2 days prior to admission with cough, shortness of breath and intermittent fever and chills as well as nausea and vomiting and diarrhea. She also had decreased intake. Respiratory panel was negative for flu. She says she had had several sick individuals at work. She had a syncopal event was in the bathroom at work and so went to the urgent care where she was noted to be saturating at 89% on room air she was brought to the ED. In the ED she was saturating 95% on room air. However with ambulation she did drop to 87% on room air. D- dimer was not elevated. Chest x-ray showed nonspecific hilar prominence probably due to viral illness vascular congestion and CT of the chest was nondiagnostic for pulmonary emboli due to motion infarct but showed mediastinal and perihilar lymphadenopathy possibly reactive to infection similar to visualize component on radiograph. COVID, influenza and RSV screen was negative. EKG showed sinus tachycardia with no acute ST changes. She was admitted and managed for hypoxia due to upper respiratory tract infection likely viral. She was placed on IV Solu-Medrol and breathing treatments bronchodilators. Patient improved much more quickly than expected. Her shortness of breath resolved and she was weaned down to room air. She remained stable and was discharged on 10/26/2024. She was discharged on p.o. prednisone 40 mg daily for 5 days. She is follow-up with her primary care doctor within 1 to 2 weeks. Patient seen and examined prior to discharge. She felt well and had no active complaints. Review of systems otherwise negative. Labs and vitals reviewed. Home medication reviewed and reconciled. Physical Exam Const alert, oriented x3, no apparent distress and well nourished General Appearance: cooperative, comfortable, well kempt and well developed Orientation / Consciousness: awake Exam Limitations: no limitations HEENT normocephalic, head/scalp atraumatic, hearing grossly normal bilaterally and moist oral mucous membranes Mouth: oral and palatal mucosa normal Eyes PERRL, EOMs intact bilaterally and conjunctivae normal Neck no lymphadenopathy and supple Lymph Lymphatic: no lymphadenopathy noted and no lymphedema noted Resp Resp Narrative: Mildly diminished breath sounds bibasilarly. No wheezing. No crackles. On room air. Cardio regular rate, regular rhythm, S1 normal heart sound, S2 normal heart sound and no murmurs Peripheral Pulses: pulses 2+ throughout GI normal to inspection, nondistended, normoactive bowel sounds, soft to palpation, non-tender and non- distend (more content not included)...[facility]02-05-2025 Evaluation note* Diagnosis Onset Date Resolution Status Admit Date Syncope resolved October 24, 2024 8:10pm Acute bronchiolitis due to respiratory syncytial virus inactive Febr uary 2024 8:10pm [facility] Work Phone: [phone]) 140-333302-03-2025 NoteHNO ID: [id number] Author: TIERNEY MCCLURE APRN.CARDIAC REHABILITATION PROGRAM DIRECTOR Service: ? Author Type: Nurse Practitioner Type: Progress Notes Filed: 10/22/2024 20:20 Note Text: CC: Patient presents with: Nasal Congestion: diarrhea and vomiting x 1 day HPI: Arlet Navarro is a 39 year old female who presents to the office with complaint of head congestion and cough, nonproductive for the past day. Symptoms are staying the same. Associated symptoms includes vomiting and diarrhea. Denies ear pain, wheezing, and dyspnea. Treatments tried include nothing so far. with no relief of symptoms. Sick contacts: flu a. History of asthma, frequent episodes of bronchitis, chronic bronchitis, bronchiectasis or COPD: No Smoker: yes Seasonal/environmental allergies: No The ROS is otherwise negative. The patient's pmh, medications, allergies, and past visits are reviewed. PHYSICAL EXAM: BP 118/70 Pulse 116 Temp (!) 38.2 ?C (100.7 ?F) Resp 20 Wt 92.2 kg (203 lb 4.2 oz) SpO2 94% BMI 43.99 kg/m? General appearance: alert, cooperative, pleasant, in [...] without rales or wheeze, good air exchange PAST MEDICAL HISTORY Diagnosis Date Arthritis Kidney stones Nocturnal hypoxia ZOFIA (obstructive sleep apnea) Umbilical hernia 2014 PAST SURGICAL HISTORY Procedure Laterality Date HYSTERECTOMY HX 2012 has left ovary LAP UMBILICAL HERNIA REPAIR 2014 NEUROPLASTY AND/TRANSPOSITION ULNAR NERVE ELBOW Right 01/18/2024 REPAIR UMBILICAL HERNIA 07/12/2024 REVISE MEDIAN N/CARPAL TUNNEL SURG Right 01/18/2024 ALLERGIES [place] [Hydrocodone-Acetaminophen] MEDICATIONS omeprazole (PRILOSEC) 40 mg capsule Take 1 capsule by mouth once daily. loratadine (CLARITIN) 10 mg tablet Take 1 tablet by mouth once daily. naproxen (NAPROSYN) 500 mg tablet TWICE DAILY NEEDED melatonin 3 mg tablet Take 3 mg by mouth once daily. oseltamivir (TAMIFLU) 75 mg capsule Take 1 capsule by mouth two times a day for 5 days. albuterol HFA (PROAIR HFA) 90 mcg/actuation inhaler Inhale 2 Puffs as instructed every 6 hours as needed. (Patient not taking: Reported on 10/10/2024) FAMILY HISTORY Problem Relation Age of Onset Breast Cancer Mother Hypertension Mother Heart Mother other (ms) Mother Fibromyalgia Mother No Known Problems Father Diabetes Sister No Known Problems Brother other (MS) Maternal Grandmother Breast Cancer Maternal Grandmother Heart Maternal Grandmother other (hTN) Maternal Grandmother No Known Problems Maternal Grandfather No Known Problems Paternal Grandmother No Known Problems Paternal Grandfather Anesthesia Problems No Family History Social History Tobacco Use Smoking status: Former Current packs/day: 0.50 Average packs/day: 0.5 packs/day for 17.0 years (8.5 ttl pk-yrs) Types: Cigarettes Smokeless tobacco: Never Vaping Use Vaping status: Never Used Substance Use Topics Alcohol use: No Drug use: No ASSESSMENT/PLAN: 1. URI, acute - ICD9: 465.9, ICD10: J06.9 - OSELTAMIVIR 75 MG CAPSULE - COVID AND INFLUENZA A/B AND RSV PCR, ROUTINE If she is negative for flu please have her stop the tamiflu no kidney issues. Prescription instructions reviewed with patient as applicable. Potential red flag symptoms discussed with the patient. Reviewed appropriate action plan to take if red flag symptoms occur. Patient agreeable to treatment plan. Tierney Mcclure APRN.[facility]02-03-2025 History of Present illness Narrative* Tierney Mcclure APRN.CARDIAC REHABILITATION PROGRAM DIRECTOR - 10/22/2024 8:14 PM EST CC: Patient presents with: Nasal Congestion: diarrhea and vomiting x 1 day HPI: Arlet Navarro is a 39 year old female who presents to the office with complaint of head congestion and cough, nonproductive for the past day. Symptoms are staying the same. Associated symptoms includes vomiting and diarrhea. Denies ear pain, wheezing, and dyspnea. Treatments tried include nothing so far. with no relief of symptoms. Sick contacts: flu a. History of asthma, frequent episodes of bronchitis, chronic bronchitis, bronchiectasis or COPD: No Smoker: yes Seasonal/environmental allergies: No The ROS is otherwise negative. The patient's pmh, medications, allergies, and past visits are reviewed. PHYSICAL EXAM: BP 118/70 Pulse 116 Temp (!) 38.2 C (100.7 F) Resp 20 Wt 92.2 kg (203 lb 4.2 oz) SpO2 94% BMI 43.99 kg/m General appearance: alert, cooperative, pleasant, in [...] without rales or wheeze, good air exchange PAST MEDICAL HISTORY Diagnosis Date Arthritis Kidney stones Nocturnal hypoxia ZOFIA (obstructive sleep apnea) Umbilical hernia 2014 PAST SURGICAL HISTORY Procedure Laterality Date HYSTERECTOMY HX 2012 has left ovary LAP UMBILICAL HERNIA REPAIR 2014 NEUROPLASTY &/TRANSPOSITION ULNAR NERVE ELBOW Right 01/18/2024 REPAIR UMBILICAL HERNIA 07/12/2024 REVISE MEDIAN N/CARPAL TUNNEL SURG Right 01/18/2024 ALLERGIES [place] [Hydrocodone-Acetaminophen] MEDICATIONS omeprazole (PRILOSEC) 40 mg capsule Take 1 capsule by mouth once daily. loratadine (CLARITIN) 10 mg tablet Take 1 tablet by mouth once daily. naproxen (NAPROSYN) 500 mg tablet TWICE DAILY NEEDED melatonin 3 mg tablet Take 3 mg by mouth once daily. oseltamivir (TAMIFLU) 75 mg capsule Take 1 capsule by mouth two times a day for 5 days. albuterol HFA (PROAIR HFA) 90 mcg/actuation inhaler Inhale 2 Puffs as instructed every 6 hours as needed. (Patient not taking: Reported on 10/10/2024) FAMILY HISTORY Problem Relation Age of Onset Breast Cancer Mother Hypertension Mother Heart Mother other (ms) Mother Fibromyalgia Mother No Known Problems Father Diabetes Sister No Known Problems Brother other (MS) Maternal Grandmother Breast Cancer Maternal Grandmother Heart Maternal Grandmother other (hTN) Maternal Grandmother No Known Problems Maternal Grandfather No Known Problems Paternal Grandmother No Known Problems Paternal Grandfather Anesthesia Problems No Family History Social History Tobacco Use Smoking status: Former Current packs/day: 0.50 Average packs/day: 0.5 packs/day for 17.0 years (8.5 ttl pk-yrs) Types: Cigarettes Smokeless tobacco: Never Vaping Use Vaping status: Never Used Substance Use Topics Alcohol use: No Drug use: No ASSESSMENT/PLAN: 1. URI, acute - ICD9: 465.9, ICD10: J06.9 - OSELTAMIVIR 75 MG CAPSULE - COVID & INFLUENZA A/B & RSV PCR, ROUTINE If she is negative for flu please have her stop the tamiflu no kidney issues. Prescription instructions reviewed with patient as applicable. Potential red flag symptoms discussed with the patient. Reviewed appropriate action plan to take if red flag symptoms occur. Patient agreeable to treatment plan. Tierney Mcclure APRN.ANALISA documented [facility]01-[facility]25 History of Present illness Narrative* Hayden Thompson Tech - 10/10/2024 4:30 PM EST Radiology Service Progress Note PATIENT NAME: Arlet Navarro DATE OF SERVICE: October 10, 2024 TIME: 4:54 PM PATIENT IDENTITY VERIFICATION COMPLETED USING TWO (2) IDENTIFIERS: Name and Date of confirmedby patient verbally. FALL SCREENING: Has the patient had 2 falls in the last year or 1 fall with injury or currently using an Ambulatory Assistive Device (Walker, Cane, Wheelchair, Crutches, etc.)? No PATIENT GENDER DATA: Assigned female at . status: : No status:NO. PATIENT RELEVANT IMPLANT DATA REVIEWED: Not Applicable PATIENT PRESENTS WITH AN IMPLANTABLE OR ATTACHED FORESTRY PATROLMAN: No RADIOLOGY DEPARTMENT: General X-ray: Exam(s) Completed: Chest X-Ray PERIPHERAL IV DATA: Not applicable SIGNED BY: Pam Macias October 10, 2024 4:54 PM documented in this encounterFayette [facility]01-22-2025 NoteHNO ID: [id number] Author: HAYDEN THOMPSON Tech Service: ? Author Type: Technologist Type: Progress Notes Filed: 10/10/2024 17:10 Note Text: Radiology Service Progress Note PATIENT NAME: Arlet Navarro DATE OF SERVICE: October 10, 2024 TIME: 4:54 PM PATIENT IDENTITY VERIFICATION COMPLETED USING TWO (2) IDENTIFIERS: Name and Date of confirmed by patient verbally. FALL SCREENING: Has the patient had 2 falls in the last year or 1 fall with injury or currently using an Ambulatory Assistive Device (Walker, Cane, Wheelchair, Crutches, etc.)? No PATIENT GENDER DATA: Assigned female at . status: : No status: NO. PATIENT RELEVANT IMPLANT DATA REVIEWED: Not Applicable PATIENT PRESENTS WITH AN IMPLANTABLE OR ATTACHED FORESTRY PATROLMAN: No RADIOLOGY DEPARTMENT: General X-ray: Exam(s) Completed: Chest X-Ray PERIPHERAL IV DATA: Not applicable SIGNED BY: Pam Macias October 10, 2024 4:54 [facility]01-22-2025 NoteHNO ID: [id number] Author: TIERNEY MCCLURE APRN.CNP Service: ? Author Type: Nurse Practitioner Type: Progress Notes Filed: 10/10/2024 17:19 Note Text: CC: Patient presents with: Cough: CAPUTO, chest congestion x 3 days HPI: Arlet Navarro is a 39 year old female who presents to the office with complaint of chest congestion and cough, productive for a few days. Symptoms are staying the same. Associated symptoms includes sore throat and headache. Denies fever, nausea, vomiting , and diarrhea. Treatments tried include nothing so far. with no relief of symptoms. Sick contacts: unknown. History of asthma, frequent episodes of bronchitis, chronic bronchitis, bronchiectasis or COPD: No Smoker: No Seasonal/environmental allergies: No The ROS is otherwise negative. The patient's pmh, medications, allergies, and past visits are reviewed. PHYSICAL EXAM: BP 108/84 Pulse 110 Temp (!) 35.9 ?C (96.6 ?F) Resp 21 Wt 81.8 kg (180 lb 5.4 oz) SpO2 96% BMI 39.02 kg/m? General appearance: alert, cooperative, pleasant, in no acute distress Head: Normocephalic Eyes: EOM's intact, conjunctiva pink and moist, no icterus, sclera white, non-injected Ears: Right ear: External ear/canal- Normal, TM - clear with good landmarks. Left ear: External ear/canal- Normal, TM - clear with good landmarks Oropharynx:moderate erythema, without exudates present Heart: Negative. RRR without obvious murmur, gallop, or rubs. No ectopy. Lungs: clear to auscultation, without rales or wheeze, good air exchange PAST MEDICAL HISTORY Diagnosis Date Arthritis Kidney stones Nocturnal hypoxia ZOFIA (obstructive sleep apnea) Umbilical hernia 2014 PAST SURGICAL HISTORY Procedure Laterality Date HYSTERECTOMY HX 2012 has left ovary LAP UMBILICAL HERNIA REPAIR 2014 NEUROPLASTY AND/TRANSPOSITION ULNAR NERVE ELBOW Right 01/18/2024 REPAIR UMBILICAL HERNIA 07/12/2024 REVISE MEDIAN N/CARPAL TUNNEL SURG Right 01/18/2024 ALLERGIES [place] [Hydrocodone-Acetaminophen] MEDICATIONS omeprazole (PRILOSEC) 40 mg capsule Take 1 capsule by mouth once daily. loratadine (CLARITIN) 10 mg tablet Take 1 tablet by mouth once daily. naproxen (NAPROSYN) 500 mg tablet TWICE DAILY NEEDED melatonin 3 mg tablet Take 3 mg by mouth once daily. albuterol HFA (PROAIR HFA) 90 mcg/actuation inhaler Inhale 2 Puffs as instructed every 6 hours as needed. (Patient not taking: Reported on 10/10/2024) FAMILY HISTORY Problem Relation Age of Onset Breast Cancer Mother Hypertension Mother Heart Mother other (ms) Mother Fibromyalgia Mother No Known Problems Father Diabetes Sister No Known Problems Brother other (MS) Maternal Grandmother Breast Cancer Maternal Grandmother Heart Maternal Grandmother other (hTN) Maternal Grandmother No Known Problems Maternal Grandfather No Known Problems Paternal Grandmother No Known Problems Paternal Grandfather Anesthesia Problems No Family History Social History Tobacco Use Smoking status: Former Current packs/day: 0.50 Average packs/day: 0.5 packs/day for 17.0 years (8.5 ttl pk-yrs) Types: Cigarettes Smokeless tobacco: Never Vaping Use Vaping status: Never Used Substance Use Topics Alcohol use: No Drug use: No ASSESSMENT/PLAN: 1. Sore throat - ICD9: 462, ICD10: J02.9 (primary diagnosis) - STREP A MOLECULAR (POC) - neg 2. URI, acute - ICD9: 465.9, ICD10: J06.9 - COVID AND INFLUENZA A/B AND RSV PCR, ROUTINE 3. Acute cough - ICD9: 786.2, ICD10: R05.1 - XR CHEST 2V FRONTAL/LAT * * * * Physician Interpretation * * * * EXAMINATION: CHEST RADIOGRAPH (2 VIEW FRONTAL AND LATERAL) PATIENT/TECHNOLOGIST PROVIDED HISTORY: COUGH, CONGESTION, CHEST DISCOMFORT X 4 DAYS CLINICAL HISTORY: 39 years old Female with Acute cough EXAM DATE/TIME: 10/10/2024 5:10 PM COMPARISON: Chest radiograph 06/26/2021 RESULT: Lines, tubes, and devices: None. Lungs and pleura: No consolidation. No pleural effusion. No pneumothorax. Cardiomediastinal silhouette: Normal cardiomediastinal silhouette. Bones and soft tissues: Unremarkable. IMPRESSION IMPRESSION: No acute radiographic abnormality. Surveying Crew Stake Runner: JIM Transcribe Date/Time: Oct 10 2024 5:10P Dictated by : EMILY WOLFE, DO Otc meds for symptoms.. Potential red flag symptoms discussed with the patient. Reviewed appropriate action plan to take if red flag symptoms occur. Patient agreeable to treatment plan. Tierney Mcclure APRN.[place] [id number] History of Present illness Narrative* Kurt McclureDAMARI matthews.CARDIAC REHABILITATION PROGRAM DIRECTOR - 10/10/2024 4:23 PM EST CC: Patient presents with: Cough: CAPUTO, chest congestion x 3 days HPI: Arlet Navarro is a 39 year old female who presents to the office with complaint of chest congestion and cough, productive for a few days. Symptoms are staying the same. Associated symptoms includes sore throat and headache. Denies fever, nausea, vomiting , and diarrhea. Treatments tried include nothing so far. with no relief of symptoms. Sick contacts: unknown. History of asthma, frequent episodes of bronchitis, chronic bronchitis, bronchiectasis or COPD: No Smoker: No Seasonal/environmental allergies: No The ROS is otherwise negative. The patient's pmh, medications, allergies, and past visits are reviewed. PHYSICAL EXAM: BP 108/84 Pulse 110 Temp (!) 35.9 C (96.6 F) Resp 21 Wt 81.8 kg (180 lb 5.4 oz) SpO2 96% BMI 39.02 kg/m General appearance: alert, cooperative, pleasant, in no acute distress Head: Normocephalic Eyes: EOM's intact, conjunctiva pink and moist, no icterus, sclera white, non-injected Ears: Right ear: External ear/canal- Normal, TM - clear with good landmarks. Left ear: External ear/canal- Normal, TM - clear with good landmarks Oropharynx:moderate erythema, without exudates present Heart: Negative. RRR without obvious murmur, gallop, or rubs. No ectopy. Lungs: clear to auscultation, without rales or wheeze, good air exchange PAST MEDICAL HISTORY Diagnosis Date Arthritis Kidney stones Nocturnal hypoxia ZOFIA (obstructive sleep apnea) Umbilical hernia 2014 PAST SURGICAL HISTORY Procedure Laterality Date HYSTERECTOMY HX 2012 has left ovary LAP UMBILICAL HERNIA REPAIR 2014 NEUROPLASTY &/TRANSPOSITION ULNAR NERVE ELBOW Right 01/18/2024 REPAIR UMBILICAL HERNIA 07/12/2024 REVISE MEDIAN N/CARPAL TUNNEL SURG Right 01/18/2024 ALLERGIES [place] [Hydrocodone-Acetaminophen] MEDICATIONS omeprazole (PRILOSEC) 40 mg capsule Take 1 capsule by mouth once daily. loratadine (CLARITIN) 10 mg tablet Take 1 tablet by mouth once daily. naproxen (NAPROSYN) 500 mg tablet TWICE DAILY NEEDED melatonin 3 mg tablet Take 3 mg by mouth once daily. albuterol HFA (PROAIR HFA) 90 mcg/actuation inhaler Inhale 2 Puffs as instructed every 6 hours as needed. (Patient not taking: Reported on 10/10/2024) FAMILY HISTORY Problem Relation Age of Onset Breast Cancer Mother Hypertension Mother Heart Mother other (ms) Mother Fibromyalgia Mother No Known Problems Father Diabetes Sister No Known Problems Brother other (MS) Maternal Grandmother Breast Cancer Maternal Grandmother Heart Maternal Grandmother other (hTN) Maternal Grandmother No Known Problems Maternal Grandfather No Known Problems Paternal Grandmother No Known Problems Paternal Grandfather Anesthesia Problems No Family History Social History Tobacco Use Smoking status: Former Current packs/day: 0.50 Average packs/day: 0.5 packs/day for 17.0 years (8.5 ttl pk-yrs) Types: Cigarettes Smokeless tobacco: Never Vaping Use Vaping status: Never Used Substance Use Topics Alcohol use: No Drug use: No ASSESSMENT/PLAN: 1. Sore throat - ICD9: 462, ICD10: J02.9 (primary diagnosis) - STREP A MOLECULAR (POC) - neg 2. URI, acute - ICD9: 465.9, ICD10: J06.9 - COVID & INFLUENZA A/B & RSV PCR, ROUTINE 3. Acute cough - ICD9: 786.2, ICD10: R05.1 - XR CHEST 2V FRONTAL/LAT * * * * Physician Interpretation * * * * EXAMINATION: CHEST RADIOGRAPH (2 VIEW FRONTAL & LATERAL) PATIENT/TECHNOLOGIST PROVIDED HISTORY: COUGH, CONGESTION, CHEST DISCOMFORT X 4 DAYS CLINICAL HISTORY: 39 years old Female with Acute cough EXAM DATE/TIME: 10/10/2024 5:10 PM COMPARISON: Chest radiograph 06/26/2021 RESULT: Lines, tubes, and devices: None. Lungs and pleura: No consolidation. No pleural effusion. No pneumothorax. Cardiomediastinal silhouette: Normal cardiomediastinal silhouette. Bones and soft tissues: Unremarkable. IMPRESSION IMPRESSION: No acute radiographic abnormality. Surveying Crew Stake Runner: JIM Transcribe Date/Time: Oct 10 2024 5:10P Dictated by : EMILY WOLFE, DO Otc meds for symptoms.. Potential red flag symptoms discussed with the patient. Reviewed appropriate action plan to take if red flag symptoms occur. Patient agreeable to treatment plan. Tierney Mcclure APRN.ANALISA documented [facility] encounterF[facility] Telephone encounter Note * Telephone Encounter - Tara Angeles RN - 08/01/2024 3:54 PM EST Patient requested a refill on her narcotic pain medications. Request forwarded to Dr. Gray. Tara Angeles RN [facility]11-13-[facility]24 Miscellaneous Notes* Telephone Encounter - Tara Angeles RN - 08/01/2024 3:54 PM EST Patient requested a refill on her narcotic pain medications. Request forwarded to Dr. Gray. Tara Angeles RN documented in this encounterFayette [facility]11-07-2024 History of Present illness Narrative* Elena Allen APRN.ANALISA - 07/26/2024 1:30 PM EST Images from the original note were not included. SUBJECTIVE: Arlet Navarro presents for follow up of her umbilical hernia repair WITHOUT mesh. On 07/12/24 she underwent a hernia repair, tolerated the procedure well and was discharged home. Patient complaints: pain. Describes this as a 5/10. Isn't taking the narcotic prescribed. Using only tylenol in the morning or before bed -Cheyanne states that within 1 week of her surgery she had to walk across town because her car brokedown and feels she did too much and this has aggravated her pain. -She states she feels bloated at the end of the day -she has been scrubbing her carpets d/t her animals urinating on it while she was recovering from surgery She denies drainage, redness around wound, difficulty voiding, and constipation. OBJECTIVE: There were no vitals taken for this visit. General Appearance: Well developed, No acute distress Abdomen: Abdomen soft, non-distended. Incision: no drainage, no erythema, no swelling, no ecchymosis, and mild tenderness over entire abdomen with palpation, no bulges IMPRESSION: Post op course: Normal PLAN: Post-op patient instructions were reviewed with the patient. We discussed taking it easy and not over doing it. Cheyanne is going to a [employer], I advised against this as there is a risk ofbeing bumped into and not having somewhere to sit down. She assures me she will be able to sit if needed. I have explained to Ms. Navarro that she may return to normal activity with the following restrictions: No heavy lifting, pushing, or pulling greater than 20 lbs for 6 weeks post-operatively.We discussed alternating tylenol and ibuprofen for better pain control and listening to her body when she is doing too much, ensuring enough rest time. I have encouraged her to contact me at any timewith any questions or concerns that may arise. Follow up: MAJOR Allen APRN.ANALISA documented in this encounterFayette [facility]11-07-2024 NoteHNO ID: [id number] Author: ELENA ALLEN APRN.ANALISA Service: ? Author Type: Nurse Practitioner Type: Progress Notes Filed: 07/26/2024 14:24 Note Text: SUBJECTIVE: Arlet Navarro presents for follow up of her umbilical hernia repair WITHOUT mesh. On 07/12/24 she underwent a hernia repair, tolerated the procedure well and was discharged home. Patient complaints: pain. Describes this as a 5/10. Isn't taking the narcotic prescribed. Using only tylenol in the morning or before bed -Cheyanne states that within 1 week of her surgery she had to walk across town because her car broke down and feels she did too much and this has aggravated her pain. -She states she feels bloated at the end of the day -she has been scrubbing her carpets d/t her animals urinating on it while she was recovering from surgery She denies drainage, redness around wound, difficulty voiding, and constipation. OBJECTIVE: There were no vitals taken for this visit. General Appearance: Well developed, No acute distress Abdomen: Abdomen soft, non-distended. Incision: no drainage, no erythema, no swelling, no ecchymosis, and mild tenderness over entire abdomen with palpation, no bulges IMPRESSION: Post op course: Normal PLAN: Post-op patient instructions were reviewed with the patient. We discussed taking it easy and not over doing it. Cheyanne is going to a [employer], I advised against this as there is a risk of being bumped into and not having somewhere to sit down. She assures me she will be able to sit if needed. I have explained to Ms. Navarro that she may return to normal activity with the following restrictions: No heavy lifting, pushing, or pulling greater than 20 lbs for 6 weeks post-operatively. We discussed alternating tylenol and ibuprofen for better pain control and listening to her body when she is doing too much, ensuring enough rest time. I have encouraged her to contact me at any time with any questions or concerns that may arise. Follow up: [facility] Telephone encounter Note* Telephone Encounter - Femi Selby LPN - 07/16/2024 11:03 AM EDT Prescription Refill Information The patient has been identified by name and date of : Yes Caregiver verified no other encounters exist for this prescription request: Yes Caregiver confirmed with patient/requestor that no other refills are due, in the near future, with this provider at this time: Yes The last office visit in the department: 10/26/23 Does the patient have a future office visit with this provider/department: No Requested Prescriptions Pending Prescriptions Disp Refills omeprazole (PRILOSEC) 40 mg capsule 90 capsule 0 Sig: Take 1 capsule by mouth once daily. Femi Selby LPN July 16, 2024 11:03 AM [facility]10-28-[facility] Miscellaneous Notes* Telephone Encounter - Femi Selby LPN - 07/16/2024 11:03 AM EDT Prescription Refill Information The patient has been identified by name and date of : Yes Caregiver verified no other encounters exist for this prescription request: Yes Caregiver confirmed with patient/requestor that no other refills are due, in the near future, with this provider at this time: Yes The last office visit in the department: 10/26/23 Does the patient have a future office visit with this provider/department: No Requested Prescriptions Pending Prescriptions Disp Refills omeprazole (PRILOSEC) 40 mg capsule 90 capsule 0 Sig: Take 1 capsule by mouth once daily. Femi Selby LPN July 16, 2024 11:03 AM documented in this encounterFayette [facility]10-28-2024 Telephone encounter Note * Telephone Encounter - Femi Selby LPN - 07/16/2024 11:02 AM EDT Prescription Refill Information The patient has been identified by name and date of : Yes Caregiver verified no other encounters exist for this prescription request: Yes Caregiver confirmed with patient/requestor that no other refills are due, in the near future, with this provider at this time: Yes The last office visit in the department: 10/26/23 Does the patient have a future office visit with this provider/department: No Requested Prescriptions Pending Prescriptions Disp Refills loratadine (CLARITIN) 10 mg tablet 30 tablet 11 Sig: Take 1 tablet by mouth once daily. Femi Selby LPN July 16, 2024 11:02 AM [facility]10-28-[facility] Miscellaneous Notes* Telephone Encounter - Femi Selby LPN - 07/16/2024 11:02 AM EDT Prescription Refill Information The patient has been identified by name and date of : Yes Caregiver verified no other encounters exist for this prescription request: Yes Caregiver confirmed with patient/requestor that no other refills are due, in the near future, with this provider at this time: Yes The last office visit in the department: 10/26/23 Does the patient have a future office visit with this provider/department: No Requested Prescriptions Pending Prescriptions Disp Refills loratadine (CLARITIN) 10 mg tablet 30 tablet 11 Sig: Take 1 tablet by mouth once daily. Femi Selby LPN July 16, 2024 11:02 AM documented in this encounterFayette [facility]10-24-2024 NoteHNO ID: [id number] Author: TINO SMITH MD Service: Anesthesiology Author Type: Physician Type: Anesthesia Procedure Notes Filed: 07/12/2024 12:20 Note Text: ANESTHESIOLOGY PROCEDURE NOTE Airway General Information Procedure Start Time/Medication Administration: 07/12/2024 12:13 PM Procedure End Time: 07/12/2024 12:14 PM Patient location during procedure: OR Timeout Performed Pre-procedure: timeout performed Consent Obtained: Yes Patient identity confirmed: arm band Staffing Anesthesiologist: Tino Smith MD Performed by: anesthesiologist Indications and Patient Condition Indications for airway management: anesthesia Preoxygenated: yes anesthesia circuit Patient position: sniffing Method: asleep Cricoid Pressure: No Manual In-Line Stabilization: No Difficult Mask: Yes Final Airway Details Final airway type: supraglottic airway Number of attempts at approach: 1 Final Supraglottic Airway: i-gel Size 3 Seal Adequate: yes Failed airway: no Unrecognized esophageal intubation: no Airway not difficult SIGNATURE: Tino Smith MD PATIENT NAME: Arlet Navarro DATE: July 12, 2024 TIME: 12:18 PM CSN: [id number] History of Present illness Narrative* Vivian Gray MD - 06/18/2024 3:43 PM EDT HISTORY AND PHYSICAL Arlet Navarro 1985 REFERRING PHYSICIAN: No ref. provider found CHIEF COMPLAINT: Consult (Umbilical Hernia) HPI: The patient is a 39 year old female presents with recurrent ventral hernia. She had previous umbilical hernia repair done 10 years ago. She denies obstructive gastrointestinal or urinary symptoms. She has had weight gain since surgery above - her BMI is 38 She quit cigarettes use 2 years ago. She denies chest pain, shortness of breath, abdominal pain, neurological symptoms. PAST MEDICAL HISTORY Diagnosis Date Arthritis Kidney stones Nocturnal hypoxia ZOFIA (obstructive sleep apnea) Umbilical hernia 2013 PAST SURGICAL HISTORY Procedure Laterality Date HYSTERECTOMY HX 2012 has left ovary LAP UMBILICAL HERNIA REPAIR 2014 NEUROPLASTY &/TRANSPOSITION ULNAR NERVE ELBOW Right 01/18/2024 REVISE MEDIAN N/CARPAL TUNNEL SURG Right 01/18/2024 Current Outpatient Medications Medication Sig omeprazole (PRILOSEC) 40 mg capsule Take 1 capsule by mouth once daily. loratadine (CLARITIN) 10 mg tablet Take 1 tablet by mouth once daily. melatonin 3 mg tablet Take 3 mg by mouth once daily. fluticasone (FLONASE) 50 mcg/actuation nasal spray Use 2 Sprays in each nostril once daily. Rinse mouth after use. (Patient not taking: Reported on 01/30/2024) albuterol HFA (PROAIR HFA) 90 mcg/actuation inhaler Inhale 2 Puffs as instructed every 6 hours as needed. (Patient not taking: Reported on 01/02/2024) etodolac (LODINE) 400 mg tablet Take 1 tablet by mouth twice daily. (Patient not taking: Reported on 01/02/2024) No current facility-administered medications for this visit. ALLERGIES: [place] [Hydrocodone-Acetaminophen] PERSONAL HISTORY: Social History Tobacco Use Smoking status: Former Current packs/day: 0.50 Average packs/day: 0.5 packs/day for 17.0 years (8.5 ttl pk-yrs) Types: Cigarettes Smokeless tobacco: Never Vaping Use Vaping status: Never Used Substance Use Topics Alcohol use: No Drug use: No FAMILY HISTORY Problem Relation Age of Onset Breast Cancer Mother Hypertension Mother Heart Mother other (ms) Mother Fibromyalgia Mother No Known Problems Father Diabetes Sister No Known Problems Brother other (MS) Maternal Grandmother Breast Cancer Maternal Grandmother Heart Maternal Grandmother other (hTN) Maternal Grandmother No Known Problems Maternal Grandfather No Known Problems Paternal Grandmother No Known Problems Paternal Grandfather Anesthesia Problems No Family History REVIEW OF SYMPTOMS: The review of systems data was entered by the nurse and reviewed by me There are no exam notes on file for this visit. PHYSICAL EXAMINATION: General: The patient is 39 year old female, well nourished, well hydrated in no acute distress. Thepatient is oriented to time, place, and person. VITALS: Blood pressure 127/85, pulse 95, temperature 36.2 C (97.2 F), temperature source Temporal, weight 79.5 kg (175 lb 3.2 oz), SpO2 97%. Body mass index is 37.91 kg/m . Head: Normal cephalic, atraumatic Eyes: pupils are equally round, sclera are clear/anicteric Neck is supple with no tracheal deviation Cardiac: normal heart sounds, regular Respiratory: Normal respiratory excursion and pattern. Abdominal exam: soft obese and benign, rectus diastasis present, ventral hernia superior to umbilical dimple Extremities: no clubbing, cyanosis or edema. Neuro: non focal Psych: normal mood Assessment IMPRESSION: recurrent ventral hernia < 3 cm PLAN: I have discussed the above with the patient. I have offered ventral hernia repair. I have explained the procedure to the patient. To be done at [facility] I have counseled the patient as to the risks of the procedure, including but not limited to: infection, bleeding, injury to any blood vessels/nerves, scar tissue, injury to any intrabdominal organs, intraabdominal abscess/bleeding, hernias at incisional sites, wound infections, complications of anesthesia, etc. - the patient understands. The patient wishes to proceed. I have answered all questions to the patient s satisfaction and the patient has no further questions. . Diagnoses: (K43.2) Recurrent ventral hernia (primary encounter diagnosis) I have confirmed and edited as necessary, the PFSH and ROS obtained by others. I spent a total of 31 minutes on the date of the service which included preparing to see the patient with review of any pertinent laboratory studies/radiological imaging/medical records, [id number] care, obtaining oral medical history from the patient in this encounter, performing a medically appropriate examination, counseling and educating the patient/family/caregiver, and ordering and/or scheduling of medications/tests/procedures, and completing appropriate medical documentation. Vivian Gray MD documented in this encounterF[facility]06-10-2024 History of Present illness Narrative* Jose Bryant MD - 2024 12:51 PM EDT Jose Bryant MD Department of Orthopaedics Orthopaedics [address] [facility] [address] Dept: [phone] Dept 2024 CHIEF COMPLAINT: Post Op of the Right Elbow, Post Op of the Right Wrist, and 5 weeks 5 days post opRight elbow unlar nerve (decompression and Right CTR). HPI Patient here for post op visit right ulnar nerve decompression and carpal tunnel release. Patient denies any pain but she is having some itching at her wrist. States her skin is rare from scratching.Patient states it started about 2 weeks ago. Denies any rash. 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 Working. Feels much better. Continue activities as tolerate. Exam: Healed incisions. Normal appearance. Nothing noted at the volar wrist to be itchy. Supporting Information Below: Medications: Current Outpatient Medications Medication Sig omeprazole (PRILOSEC) 40 mg capsule Take 1 capsule by mouth once daily. loratadine (CLARITIN) 10 mg tablet Take 1 tablet by mouth once daily. melatonin 3 mg tablet Take 3 mg by mouth once daily. fluticasone (FLONASE) 50 mcg/actuation nasal spray Use 2 Sprays in each nostril once daily. Rinse mouth after use. (Patient not taking: Reported on 01/30/2024) albuterol HFA (PROAIR HFA) 90 mcg/actuation inhaler Inhale 2 Puffs as instructed every 6 hours as needed. (Patient not taking: Reported on 01/02/2024) etodolac (LODINE) 400 mg tablet Take 1 tablet by mouth twice daily. (Patient not taking: Reported on 01/02/2024) No current facility-administered medications for this visit. Allergies: [place] [Hydrocodone-Acetaminophen] Jose Bryant MD documented in this encounterF[facility]05-13-2024 Telephone encounter Note * Telephone Encounter - Aurora Yost MA - 01/30/2024 9:46 AM EDT Claritin refilled #30 with 11 refills to [facility] on 10/26/23. Pt notified to check with pharmacy. Aurora Yost MA [facility]05-13-2024 Miscellaneous Notes* Telephone Encounter - Aurora Yost MA - 01/30/2024 9:46 AM EDT Claritin refilled #30 with 11 refills to [facility] on 10/26/23. Pt notified to check with pharmacy. Aurora Yost MA documented in this encounterFayette County [facility] Hospital05-13-2024 History of Present illness Narrative* Shantel Wynn PA-C - 01/30/2024 9:26 AM EDT Shantel Wynn PA-C Department of Orthopaedics Orthopaedics [address] [facility] [address] Dept: [phone] Dept January 30, 2024 CHIEF COMPLAINT: Post Op of the Right Elbow. ASSESSMENT: G56.21 Ulnar neuropathy of right upper extremity (primary encounter diagnosis) G56.01 Carpal tunnel syndrome on right SUMMARY/PLAN: Patient presents 1 week and 5 days status post right ulnar nerve decompression and right carpal tunnel release. She is doing well, has had improvement in the numbness and tingling in her hand, however has some 4 out of 10 dull itching especially around the elbow incision site, she believes that thebandage may be irritating her skin. Admits to scratching under the bandage. Will remove her suturestoday, she can start some light pushing and pulling but advised her to avoid any heavy activity until her second postop. We discussed proper handwashing and showering, patient may apply some light lotion to the incision sites. 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 Exam: Elbow and palm incision sites are both well-approximated without erythema or drainage. Patient has some excoriation along the lateral aspect of the elbow. Patient is able to gently flex and extend the elbow with only minimal discomfort. Subjective numbness in the right hand. Imaging: Deferred today. Ms. Arlet Navarro was advised as to contrast therapies and/or to take analgesics/anti-inflammatories as needed and all contraindications were reviewed. Supporting Information Below: Medications: Current Outpatient Medications Medication Sig loratadine (CLARITIN) 10 mg tablet Take 1 tablet by mouth once daily. melatonin 3 mg tablet Take 3 mg by mouth once daily. omeprazole (PRILOSEC) 40 mg capsule Take 1 capsule by mouth once daily. oxyCODONE-acetaminophen (PERCOCET) 5-325 mg tablet Take 1 tablet by mouth every 6 hours as needed for pain for up to 7 days. (Patient not taking: Reported on 01/30/2024) fluticasone (FLONASE) 50 mcg/actuation nasal spray Use 2 Sprays in each nostril once daily. Rinse mouth after use. (Patient not taking: Reported on 01/30/2024) albuterol HFA (PROAIR HFA) 90 mcg/actuation inhaler Inhale 2 Puffs as instructed every 6 hours as needed. (Patient not taking: Reported on 01/02/2024) etodolac (LODINE) 400 mg tablet Take 1 tablet by mouth twice daily. (Patient not taking: Reported on 01/02/2024) No current facility-administered medications for this visit. Allergies: [place] [Hydrocodone-Acetaminophen] This note was partially generated using [employer] voice recognition system, and there may be some incorrect words, spellings, and punctuation that were not noted in checking the note before saving. Shantel Wynn PA-C * Steffi Feliz MA - 01/30/2024 8:48 AM EDT AMB ROOMING INTAKE FLOWSHEET DATA Pain Pain Level: 4 Pain Location: Elbow-Right Description: Dull, Incision, Itching, Numbness, Pulsating, Throbbing, Tingling Duration Amount of Time: 30 Duration Units: Minutes Frequency: Intermittent Intervention/Comfort measure: Medication, Cold 1 week 5 days post op right Ulnar nerve decompression documented in this encounterFayette County [facility] Hospital05-13-2024 Telephone encounter Note * Telephone Encounter - Aurora Yost MA - 01/30/2024 9:05 AM EDT Patient has been identified by name and date of : Yes, Provider Shaniqua Beckford, Date January 30, 2024 Time 9:05 AM Patient phones for refill(s): Requested Prescriptions Pending Prescriptions Disp Refills omeprazole (PRILOSEC) 40 mg capsule 90 capsule 0 Sig: Take 1 capsule by mouth once daily. Date of last office visit in primary care: 10/26/2023 Date of next office visit in primary care: none Please advise. Thank you. Aurora Yost MA. [facility]05-13-2024 Miscellaneous Notes* Telephone Encounter - Aurora Yost MA - 01/30/2024 9:05 AM EDT Patient has been identified by name and date of : Yes, Provider Shaniqua eBckford, Date January 30, 2024 Time 9:05 AM Patient phones for refill(s): Requested Prescriptions Pending Prescriptions Disp Refills omeprazole (PRILOSEC) 40 mg capsule 90 capsule 0 Sig: Take 1 capsule by mouth once daily. Date of last office visit in primary care: 10/26/2023 Date of next office visit in primary care: none Please advise. Thank you. Aurora Yost MA. documented in this encounterFayette County [facility] Hospital04-19-2024 Instructions* Patient Instructions* Megan Patel PA-C - 01/06/2024 3:20 PM EDT PATIENT PREOPERATIVE INSTRUCTIONS Jose Bryant MD has scheduled you for your procedure at this surgery center: [facility]: [phone] [facility] [address] [address]. Please read below carefully for your personalized instructions. Dietary Restrictions: - No solid food after midnight. - You may have 12 ounces of clear liquids (water, clear juices such as apple juice or gatorade, carbonated beverages, clear tea, black coffee, jello) until 2 hours before scheduled arrival at facility. - Do not drink any alcohol after midnight the night before your surgery. Medications: Unless instructed differently below, stay on all of your medications until your surgery. Pre-Surgery Med Instructions Medication Instructions loratadine (CLARITIN) 10 mg tablet Do not take the morning of surgery omeprazole (PRILOSEC) 40 mg capsule Take the day of surgery with a small sip of water fluticasone (FLONASE) 50 mcg/actuation nasal spray Continue to take as you normally do melatonin 3 mg tablet Continue to take as you normally do If you start any new medications after today's visit, please contact the surgeon's office. Blood Thinning Medications: - Stop NSAIDS (Ibuprofen, Advil, Aleve, Motrin, Celebrex, Mobic, etc.) 7 days before surgery, as directed by your surgeon. - Stop Aspirin 7 days before surgery, as directed by your surgeon. - Stop Vitamin E, ALL multi-vitamins, herbals and dietary supplements 14 days before surgery. - You may take Tylenol (Acetaminophen) or any of your pain medications that do not contain aspirin or NSAIDS as needed. Important Reminders: - Candy, mints, and tobacco products are NOT permitted the morning of surgery. - Hearing aids, dentures and glasses may be worn the morning of surgery. - NO jewelry, body piercings, makeup, hairpins or contacts are to be worn the day of surgery. If you develop symptoms such as a fever, cold, or flu, or have other changes to your health within TWO DAYS of scheduled surgery or the morning of surgery, please contact the surgery center above. Personal Belongings: -Please have photo ID and insurance cards. -If you do not have a copy of advance directives on file with us, please bring a copy with you on the day of surgery. - Leave ALL valuables and money at home or with family members. For Outpatient Procedures: - YOU MUST HAVE A RESPONSIBLE BEVEL FACE STONER AND POLISHER TAKE YOU HOME. A FUGITIVE INVESTIGATOR OR FIRE FIGHTER CANNOT BE MADE A RESPONSIBLE BEVEL FACE STONER AND POLISHER. - We recommend that a responsible person stays with you overnight to take care of you. - You cannot stay in a hotel alone after outpatient surgery. You will not be permitted to have yoursurgery, if you do not have someone to take care of you. Arrival Time for Surgery: - The Surgery Center or hospital where you are having surgery will call the afternoon before surgery (or Tuesday for Tuesday surgery) with a scheduled arrival time. - If you have not heard by 4 pm, please contact the surgery center above. Please be aware that emergency situations arise, which may delay or change your surgical time. If this happens, we will notify you as soon as possible and regret any inconvenience. If you already have an Advance Directive, please fax a copy to [phone] or email to for it to be added to your chart. If you do not have an Advance Directive, you can find the appropriate form and more information at [email or web address]. We recommend that youcomplete the Advance Directive form found on the website and bring it with you the day of your surgery. It can be witnessed and scanned into your chart that day. Megan Patel PA-C documented in this encounterF[facility]04-19-[facility] History and physical note * Megan Patel PA-C - 01/06/2024 3:00 PM EDT HISTORY AND PHYSICAL EXAMINATION SERVICE DATE: 01/06/2024 SERVICE TIME: 3:40 PM PRIMARY CARE PHYSICIAN: Shaniqua Beckford MD REASON FOR VISIT: Arlet Navarro is a 38 year old female who is scheduled for Procedure(s): DECOMPRESSION NERVE ULNAR ELBOW (Right) DECOMPRESSION NERVE MEDIAN CARPAL TUNNEL (Right) at the request of Dr. Jose Bryant for consultation. My final recommendation will be communicated back to the requesting physician by way of shared medical record or letter. Subjective The patient has the following: ACTIVE PROBLEM LIST Zofia (Obstructive Sleep Apnea) Gerd (Gastroesophageal Reflux Disease) Class 2 Obesity Without Serious Comorbidity With Body Mass Index (Bmi) of 37.0 to 37.9 in Adult COVID-19 Immunization Status Overdue - Covid-19 Vaccine ( season) Overdue since 05/20/2023 07/28/2022 Imm Admin: COVID-19 vaccine, age 12+ yr, bivalent (PFIZER-BIONTECH) 07/30/2021 Imm Admin: COVID-19 original vaccine, age 12+ yr, monovalent (PFIZER- BIONTECH - PURPLE TOP) 07/09/2021 Imm Admin: COVID-19 original vaccine, age 12+ yr, monovalent (PFIZER- BIONTECH - PURPLE TOP) Only the first 3 history entries have been loaded, but more history exists. CHIEF COMPLAINT: Pre-Op HPI: Arlet Navarro is a 38 year old female presenting for pre-anesthesia consultation. Pt has history of ulnar neuropathy. Above procedure recommended to manage symptoms. Procedure scheduled on 01/18/2024 at [facility]. REVIEW OF SYSTEMS: General: No weight loss, malaise or fevers. Neurological: Negative for: headaches, multiple sclerosis, Parkinson's disease, seizures and strokes. Respiratory: Positive for: obstructive sleep apnea. Negative for: asthma, COPD, current cough, dyspnea, tobacco use and URI < 2 weeks. Cardiovascular: Negative for: AICD/PPM, anticoagulation therapy, arrhythmia, CAD, chest pain, CHF, DVT/PE, hyperlipidemia, hypertension, recent IL, murmur/valvular heart disease, open heart surgery and valve surgery. GI: Positive for: GERD Negative for: abdominal pain, dysphagia, liver disease, nausea and vomiting. : Negative for: on dialysis, dysuria, hematuria and renal failure. Endocrine: Negative for: diabetes mellitus, hyperthyroidism and hypothyroidism. Hematology: Negative for: anemia, bruises/bleeds easily, factor V Leiden, hemophilia, thrombocytopenia, von Willebrand disease and chronic anti-coagulation/platelet meds. Oncology: No history of CA metastasis, chemo within 30 days, or radiotherapy within 90 days. No history of oncological symptoms or problems. Psych: Negative for: anxiety, bipolar disorder and depression. Musculoskeletal: See HPI. Skin: Negative for lesions, rash and itching. PAST MEDICAL HISTORY Diagnosis Date Arthritis Kidney [...] Paternal Grandmother No Known Problems Paternal Grandfather Anesthesia Problems No Family History Social History Tobacco Use Smoking status: Every Day Packs/day: 0.50 Years: 17.00 Additional pack years: 0.00 Total pack years: 8.50 Types: Cigarettes Smokeless tobacco: Never Vaping Use Vaping Use: Never used Substance Use Topics Alcohol use: No Drug use: No Prior to Admission medications as of 01/06/24 1449 Medication Sig Last Dose Taking loratadine (CLARITIN) 10 mg tablet Take 1 tablet by mouth once daily. Taking Yes omeprazole (PRILOSEC) 40 mg capsule Take 1 capsule by mouth once daily. Yes fluticasone (FLONASE) 50 mcg/actuation nasal spray Use 2 Sprays in each nostril once daily. Rinse mouth after use. Taking Yes melatonin 3 mg tablet Take 3 mg by mouth once daily. Taking Yes albuterol HFA (PROAIR HFA) 90 mcg/actuation inhaler Inhale 2 Puffs as instructed every 6 hours as needed. Patient not taking: Reported on 01/02/2024 Not Taking etodolac (LODINE) 400 mg tablet Take 1 tablet by mouth twice daily. Patient not taking: Reported on 01/02/2024 Not Taking No medication comments found. ALLERGIES Allergen Reactions [place] [Hydrocodone-* Hives, Swelling Objective PHYSICAL EXAM: General: alert and oriented, healthy appearance and obese. Pertinent negatives noted - not distressed. Skin: normal color, no rash or lesions. HEENT: EOM intact, pupils equal round and pupils reactive to light. Pertinent negatives noted - no carotid bruit. Cardiovascular: regular rate and rhythm, normal S1 and S2, no rub, murmurs, or gallop. Respiratory: normal breath sounds, no wheezes or crackles. No chest wall deformity or tenderness. Abdomen: bowel sounds present and soft. Pertinent negatives noted - not distended and not tender. Extremities: no deformity, no edema or tenderness, no joint swelling or clubbing. Neurological: normal cognition and motor skills. Gait normal. No weakness or sensory deficit. PAIN ASSESSMENT: VITALS: BP 114/72 Pulse 85 Temp (Src) 96.9 (Temporal) Resp 18 Ht 4' 9 (1.45m) Wt 174 lb (78.9kg) SpO2 98% BMI 37.64 kg/(m^2). Diagnostic tests reviewed for today's visit: Lab Value Units Date High Low HB No results within date range. HCT No results within date range. WBC No results within date range. PLT No results within date range. NA No results within date range. K No results within date range. GLUC No results within date range. BUN No results within date range. CREAT No results within date range. PTSEC No results within date range. INR No results within date range. APTT No results within date range. ALT No results within date range. AST No results within date range. TBILI No results within date range. TSH No results within date range. Lab Value Units Date High Low HCGQT No results within date range. UHCG No results within date range. HCG, BODY* No results within date range. Lab Value Units Date High Low ABORHD No results within date range. ABSCREEN No results within date range. No results found for: HBA1C No results found for this or any previous visit (from the past 8760 hour(s)). No results found for this or any previous visit (from the past 28420 hour(s)). Assessment Patient has the following medical conditions which may affect benedict-operative course: ZOFIA (obstructive sleep apnea) Assessment: HSAT completed showing borderline AHI - 5.7 (c/w mild sleep apnea). She did have a couple of desaturations during testing to zully of 74. Pt thinks this was d/t her having a respiratory tract infection at the time. GERD (gastroesophageal reflux disease) Assessment: Well controlled on PPI. Class 2 obesity without serious comorbidity with body mass index (BMI) of 37.0 to 37.9 in adult Assessment: Body mass index is 37.65 kg/m . Guzman Activity Status Index: METS: Climb a flight of stairs or walk up a hill (5.50 METs) DASI Score: 5.5 Patient denies any chest pain or undue shortness of breath with the above physical activity. Clinical Frailty Scale: 3. Well, with treated comorbid disease STOP-Bang Score: Snores loudly BMI greater than 35 kg/m^2 Denies feeling tired, fatigued, or sleepy during the daytime Has not been observed to stop breathing or choking/gasping during sleep Denies having high blood pressure Patient 50 years old or younger Does not have a large neck Non-male patient STOP-Bang Score: 2 [id number] Score: Age: <65 Sex: female CHF history: No Hypertension history: No Stroke/TIA/thromboembolism history: No Vascular disease history: No Diabetes history: No [id number] Score: 1 ANESTHESIA FINDINGS: Intubation History: No history of difficult intubation. No abnormal airway history Significant Anesthesia Considerations: none Airway History: No history of difficult airway No abnormal airway history I - PHYSICAL EVALUATION AIRWAY Patient intubated: No. Tracheostomy tube not present Mallampati: I. TM distance: >3 FB. Neck ROM: full ROM without neurological symptoms. Mouth opening: adequate. Short neck: no. Thick neck: no Gonzalez present: no Lip Bite Test: I Microretrognathia/Micronagthia/Recessed Chin: No DENTAL Dental findings: missing tooth/teeth and teeth intact. II - ANESTHESIA PLAN Anesthetic Plan: other Anesthetic plan additional comments: *PACC/TCI - anesthesia choice. Beta Heath Monitoring Plan Post Procedure Analgesic Plan Prepared for Surgery: optimally prepared for surgery. CONSULTS: Patient does not require consults for optimization at this time Planned Anesthetic: other anesthesia choice The Following Tests/Procedures Have Been Initiated: No orders of the defined types were placed in this encounter. Instructions Given to Patient: Instructions located in the after visit summary. Patient given verbal and written preop instructions and voices comprehension and compliance. SIGNATURE: Megan Patel PA-C PATIENT NAME: Arlet Navarro DATE: 01/06/2024 TIME: 3:40 PM PAGER/CONTACT #: documented in this encounterFayette [facility]04-18-2024 Miscellaneous Notes* Telephone Encounter - Miley Gutierrez MA - 01/05/2024 2:30 PM EDT Surgery has been scheduled as requested. * Telephone Encounter - Miley Gutierrez MA - 01/04/2024 9:06 AM EDT Surgical request completed for right ulnar nerve decompression and right CTR at [facility] on 01/18/2024. Post op appointments have been scheduled and mailed to the patient. documented in this encounterFayette County [facility]04-15-2024 History of Present illness Narrative* Jose Bryant MD - 01/02/2024 7:53 AM EDT Jose Bryant MD Department of Orthopaedics Orthopaedics [address] [facility] [address] Dept: [phone] Dept January 02, 2024 CHIEF COMPLAINT: Established Patient and Pain of the Right Hand HPI Patient here today 4 days post visit right carpal tunnel syndrome with injection given. Patientreports she woke up in the middle of the night with extreme pain after she received the injection. Patient reports quite a bit of improvement with her cortisone injection for the carpal tunnel but subsequently her symptoms returned. 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 The risks, benefits, alternatives and potential complications involving both operative and nonoperative treatment were reviewed. Sheis interested in surgery both for the elbow and for the carpal tunnel. Will help get her scheduled at her convenience. Ms. Arlet Navarro was advised as to contrast therapies and/or to take analgesics/anti-inflammatories as needed and all contraindications were reviewed. OBJECTIVE: Ms. Arlet Navarro is a pleasant 38 year old in no apparent distress. Gen:There were no vitals taken for this visit. nl development, obese, no deformities ENT: Normocephalic, normal hearing, moist mucosa CV: Pulses:Radial= 2+ and symmetric, capillary refill < 2 secs, no peripheral edema/varicosities Skin: no rash, bruising or lesions. Good turgor. Psych: cooperative and appropriate, alert and oriented x 3, good mood and affect. Musculoskeletal: She remains with a positive Tinel's both at the elbow and at the wrist. No subluxation at the elbow. Positive median nerve compression test at the wrist. Imaging: IMPRESSION: PERCHING OF THE ULNAR NERVE ON DYNAMIC EXAM WITHOUT COMPLETE SUBLUXATION. MINIMAL ENLARGEMENT AND FASCICULAR PROMINENCE OF THE ULNAR NERVE WITHIN THE CUBITAL TUNNEL WHICH MAY BE SEEN WITH MILD NEURITIS. 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 TECHNIQUE: Talley-scale real-time ultrasound of the medial elbow with dynamic imaging and power Doppler examination was performed. Images were saved to the permanent image archive. v1-18. COMPARISON: None FINDINGS: COMMON FLEXOR TENDON: Tendinosis: None Tearing: None. Power Doppler Examination: Normal. Fascia: Normal in thickness. Medial Epicondyle: No osseous hypertrophic changes. ULNAR COLLATERAL LIGAMENT: Intact. Normal stress/dynamic examination. ULNAR NERVE: Minimal enlargement and fascicular prominence within the cubital tunnel. No abrupt caliber change. There is perching of the nerve on dynamic evaluation without complete subluxation. MEDIAL ELBOW JOINT SPACE: Appears grossly maintained. Supporting Subjective Information Below: Past Surgical History: PAST SURGICAL HISTORY Procedure Laterality Date HYSTERECTOMY HX 2012 has left ovary LAP UMBILICAL HERNIA REPAIR Medications: Current Outpatient Medications Medication Sig loratadine (CLARITIN) 10 mg tablet Take 1 tablet by mouth once daily. omeprazole (PRILOSEC) 40 mg capsule Take 1 capsule by mouth once daily. fluticasone (FLONASE) 50 mcg/actuation nasal spray Use 2 Sprays in each nostril once daily. Rinse mouth after use. melatonin 3 mg tablet Take 3 mg by mouth once daily. predniSONE (DELTASONE) 10 mg tablet Take 5 tablets by mouth once daily for 1 day, THEN 4 tablets once daily for 1 day, THEN 3 tablets once daily for 1 day, THEN 2 tablets once daily for 1 day, THEN 1tablet once daily for 1 day. (Patient not taking: Reported on 01/02/2024) albuterol HFA (PROAIR HFA) 90 mcg/actuation inhaler Inhale 2 Puffs as instructed every 6 hours as needed. (Patient not taking: Reported on 01/02/2024) etodolac (LODINE) 400 mg tablet Take 1 tablet by mouth twice daily. (Patient not taking: Reported on 01/02/2024) No current facility-administered medications for this visit. Allergies: [place] [Hydrocodone-Acetaminophen] ROS: General (negative for fatigue, malaise, weight loss/gain) HEENT (negative for headache, earache, recent vision changes, sinus pain, sore throat) Respiratory (no recent shortness of breath, hemoptysis) CV (negative for chest tightness, palpitations) Musculoskeletal (see HPI) Psych (no depression, anxiety) Jose Bryant MD documented in this encounterFayette [facility]04-11-2024 History of Present illness Narrative* Jose Bryant MD - 12/29/2023 2:48 PM EDTAssociated Order(s): Additional Injections: R carpal tunnel Post-Procedure Diagnose(s): Carpal tunnel syndrome of right wrist Jose Bryant MD Department of Orthopaedics Orthopaedic Surgery [facility] [address] [address] [facility] [address] Dept: [phone] Dept December 29, 2023 CHIEF COMPLAINT: Follow Up and Pain of the Right Hand HPI She is here to review her ultrasound exams. 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 She will report back shortly. Ms. Arlet Navarro was advised as to contrast therapies and/or to take analgesics/anti-inflammatories as needed and all contraindications were reviewed. OBJECTIVE: Ms. Arlet Navarro is a pleasant 38 year old in no apparent distress. Gen:There were no vitals taken for this visit. nl development, obese, no deformities ENT: Normocephalic, normal hearing, moist mucosa CV: Pulses:Radial= 2+ and symmetric, capillary refill < 2 secs, no peripheral edema/varicosities Skin: no rash, bruising or lesions. Good turgor. Psych: cooperative and appropriate, alert and oriented x 3, good mood and affect. Musculoskeletal: Exam is consistent with prior visits with a positive Tinel's and Phalen's at the elbow with no subluxation. Mild light touch diminished sensation in the median and ulnar nerves in the hand. Positive Tinel's and median nerve compression test at the wrist. Additional Injections: R carpal tunnel for carpal tunnel syndrome Informed Consent Consent Obtained: Verbal [place] Protocol A moment to CARE was completed. SIGN IN Personnel directly involved with the procedure wore the appropriate PPE. Special Equipment: N/A Patient/Surrogate Stated/Verified: Patient name, Date of , Relevant allergies and Intended procedure TIME OUT Intended patient and procedure match the source document(s). Consent documented and matches the intended procedure. Relevant labs, photos, and/or imaging studies have been reviewed. Correct side/site marked and visible. Medications required for procedure verified. No fire risk assessment and interventions applicable. No implant(s) inserted. 12/29/2023 3:23 PM The procedure site was prepped in the usual sterile fashion. Medications: 10 mg triamcinolone acetonide 10 mg/mL Anesthetics: 1 mL BUPivacaine (PF) 0.5 % (5 mg/mL) Outcome: tolerated well, no immediate complications Post-injection instructions were reviewed with the patient and the patient voiced understanding of these instructions. SIGN OUT No specimen collected. All instruments, equipment, possible retained foreign bodies accounted for. Imaging: * * *Final Report* * * DATE OF EXAM: Nov 30 2023 2:00PM AFU 1134 - US ELBOW RT / PROCEDURE REASON: Ulnar neuropathy at elbow of right upper extremity * * * * Physician Interpretation * * * * MSK_US RIGHT MEDIAL ELBOW ULTRASOUND: CLINICAL INFORMATION: Pain and swelling right arm and wrist. TECHNIQUE: Talley-scale real-time ultrasound of the medial elbow with dynamic imaging and power Doppler examination was performed. Images were saved to the permanent image archive. v1-18. COMPARISON: None FINDINGS: COMMON FLEXOR TENDON: Tendinosis: None Tearing: None. Power Doppler Examination: Normal. Fascia: Normal in thickness. Medial Epicondyle: No osseous hypertrophic changes. ULNAR COLLATERAL LIGAMENT: Intact. Normal stress/dynamic examination. ULNAR NERVE: Minimal enlargement and fascicular prominence within the cubital tunnel. No abrupt caliber change. There is perching of the nerve on dynamic evaluation without complete subluxation. MEDIAL ELBOW JOINT SPACE: Appears grossly maintained. Supporting Subjective Information Below: Past Surgical History: PAST SURGICAL HISTORY Procedure Laterality Date HYSTERECTOMY HX 2012 has left ovary LAP UMBILICAL HERNIA REPAIR Medications: Current Outpatient Medications Medication Sig predniSONE (DELTASONE) 10 mg tablet Take 5 tablets by mouth once daily for 1 day, THEN 4 tablets once daily for 1 day, THEN 3 tablets once daily for 1 day, THEN 2 tablets once daily for 1 day, THEN 1tablet once daily for 1 day. loratadine (CLARITIN) 10 mg tablet Take 1 tablet by mouth once daily. fluticasone (FLONASE) 50 mcg/actuation nasal spray Use 2 Sprays in each nostril once daily. Rinse mouth after use. albuterol HFA (PROAIR HFA) 90 mcg/actuation inhaler Inhale 2 Puffs as instructed every 6 hours as needed. melatonin 3 mg tablet Take 3 mg by mouth once daily. omeprazole (PRILOSEC) 40 mg capsule Take 1 capsule by mouth once daily. etodolac (LODINE) 400 mg tablet Take 1 tablet by mouth twice daily. No current facility-administered medications for this visit. Allergies: [place] [Hydrocodone-Acetaminophen] ROS: General (negative for fatigue, malaise, weight loss/gain) HEENT (negative for headache, earache, recent vision changes, sinus pain, sore throat) Respiratory (no recent shortness of breath, hemoptysis) CV (negative for chest tightness, palpitations) Musculoskeletal (see HPI) Psych (no depression, anxiety) Jose Bryant MD documented in this encounterFayette [facility]04-10-2024 History of Present illness Narrative* Cecilia Love MD - 12/28/2023 3:27 PM EDT Patient presents with: Sore Throat: ST x 2 days HPI: Feeling sick for 3 days. Her son is sick now also. Exposed to a niece with strep throat. Positive symptoms: Sore throat, Cough, Wheezing, Nasal Congestion, Fever, Fatigue, Diarrhea, neck ache Negative symptoms: Vomiting, OTC: aleve, albuterol Was in the hospital for viral infection this winter. MEDICATIONS: Current Outpatient Medications Medication Sig loratadine (CLARITIN) 10 mg tablet Take 1 tablet by mouth once daily. omeprazole (PRILOSEC) 40 mg capsule Take 1 capsule by mouth once daily. fluticasone (FLONASE) 50 mcg/actuation nasal spray Use 2 Sprays in each nostril once daily. Rinse mouth after use. albuterol HFA (PROAIR HFA) 90 mcg/actuation inhaler Inhale 2 Puffs as instructed every 6 hours as needed. melatonin 3 mg tablet Take 3 mg by mouth once daily. etodolac (LODINE) 400 mg tablet Take 1 tablet by mouth twice daily. (Patient not taking: Reported on 11/03/2023) No current facility-administered medications for this visit. ALLERGIES: ALLERGIES Allergen Reactions [place] [Hydrocodone-* Hives, Swelling VITALS: BP 118/76 Pulse 86 Temp 36.6 C (97.9 F) (Tympanic) Resp 18 Wt 77.2 kg (170 lb 3.1 oz) SpO2 97% BMI 34.38 kg/m PHYSICAL EXAM: GEN: mildly ill appearing HEENT: PERRL, EOMI, conjunctiva clear Ears: canals clear. TMs without erythema, bulge, or effusion Sinuses: non-tender frontal sinus, non-tender maxillary sinuses Throat: moist mucous membranes, mild erythema, no exudate Neck: supple, no thyromegaly, no lymphadenopathy HEART: regular rate and rhythm, no murmurs LUNGS: left upper lung wheezes, clear to auscultation after coughing, no crackles, no increased WOB ASSESSMENT/PLAN: 1. Sore throat - ICD9: 462, ICD10: J02.9 (primary diagnosis) - STREP A MOLECULAR (POC) - negative - suspect viral URI - Discussed supportive care treatment with rest, cold medicine, and analgesia. 2. Wheezing - ICD9: 786.07, ICD10: R06.2 Feels she would improve with steroid. - PREDNISONE 10 MG TABLET Cecilia Love MD documented in this encounterFayette County [facility]03-23-2024 History of Present illness Narrative* Latha Fatima APRN.CARDIAC REHABILITATION PROGRAM DIRECTOR - 12/10/2023 1:15 PM EDT This note was created using [employer]. Subjective Arlet Navarro is a 38 year old female. 38 year old female with no PMH presents for illness. Acute onset of symptoms was 2 days ago +nasal congestion +cough +sinus pain +sinus pressure +sore throat +diarrhea Denies hemoptysis Denies CP Denies SOB or dyspnea Works at [employer] +tobacco usage Has used OTC medicines without relief The history is provided by the patient. No american sign language interpreter was used. URI She complains of cough and sputum production. There is no chest tightness, difficulty breathing, frequent throat clearing, hemoptysis, hoarse voice, shortness of breath or wheezing. This is a new problem. Episode onset: 2 days. The problem occurs constantly. The problem has been gradually worsening. The cough is productive of sputum. Associated symptoms include ear congestion, ear pain, headaches, nasal congestion, rhinorrhea, sneezing and a sore throat. Pertinent negatives include no appetite change, chest pain, dyspnea on exertion, fever, heartburn, malaise/fatigue, myalgias, orthopnea, PND, postnasal drip, sweats, trouble swallowing or weight loss. Her symptoms are aggravated by nothing.Her symptoms are alleviated by nothing. She reports no improvement on treatment. Risk factors for lung disease include smoking/tobacco exposure. There is no history of asthma, bronchiectasis, bronchitis, COPD, emphysema or pneumonia. PAST MEDICAL HISTORY Diagnosis Date Arthritis Kidney stones Nocturnal hypoxia ZOFIA (obstructive sleep apnea) PAST SURGICAL HISTORY Procedure Laterality Date HYSTERECTOMY HX 2011 has left ovary LAP UMBILICAL HERNIA REPAIR ALLERGIES [place] [Hydrocodone-Acetaminophen] MEDICATIONS loratadine (CLARITIN) 10 mg tablet Take 1 tablet by mouth once daily. omeprazole (PRILOSEC) 40 mg capsule Take 1 capsule by mouth once daily. fluticasone (FLONASE) 50 mcg/actuation nasal spray Use 2 Sprays in each nostril once daily. Rinse mouth after use. melatonin 3 mg tablet Take 3 mg by mouth once daily. amoxicillin-clavulanate potassium (AUGMENTIN) 875-125 mg per tablet Take 1 tablet by mouth two times a day for 7 days. predniSONE (DELTASONE) 10 mg tablet Take 4 tabs daily for 3 days, then 2 tabs daily for 3 days, then 1 tab daily for 3 days with food. albuterol HFA (PROAIR HFA) 90 mcg/actuation inhaler Inhale 2 Puffs as instructed every 6 hours as needed. (Patient not taking: Reported on 11/03/2023) etodolac (LODINE) 400 mg tablet Take 1 tablet by mouth twice daily. (Patient not taking: Reported on 11/03/2023) FAMILY HISTORY Problem Relation Age of Onset [...] Grandfather Social History Tobacco Use Smoking status: Every Day Packs/day: 0.50 Years: 17.00 Additional pack years: 0.00 Total pack years: 8.50 Types: Cigarettes Smokeless tobacco: Never Vaping Use Vaping Use: Never used Substance Use Topics Alcohol use: No Drug use: No Review of Systems Constitutional: Negative for appetite change, fever, malaise/fatigue and weight loss. HENT: Positive for congestion, ear pain, rhinorrhea, sneezing and sore throat. Negative for hoarse voice, postnasal drip and trouble swallowing. Eyes: Negative for pain, discharge, redness and itching. Respiratory: Positive for cough and sputum production. Negative for apnea, hemoptysis, shortness ofbreath and wheezing. Cardiovascular: Negative for chest pain, dyspnea on exertion and PND. Gastrointestinal: Positive for diarrhea. Negative for abdominal pain, heartburn, nausea and vomiting. Musculoskeletal: Negative for arthralgias, back pain and myalgias. Skin: Negative for color change, pallor and rash. Allergic/Immunologic: Negative for environmental allergies, food allergies and immunocompromised state. Neurological: Positive for headaches. Hematological: Negative for adenopathy. Does not bruise/bleed easily. Psychiatric/Behavioral: Negative for agitation and behavioral problems. Objective BP 88/64 Pulse 93 Temp 36.4 C (97.6 F) Resp 19 Wt 76.7 kg (169 lb 1.5 oz) SpO2 97% BMI 34.15 kg/m Physical Exam Vitals and nursing note reviewed. Constitutional: General: She is not in acute distress. Appearance: Normal appearance. She is normal weight. She is not ill-appearing, toxic-appearing or diaphoretic. HENT: Head: Normocephalic and atraumatic. Right Ear: Ear canal and external ear normal. Left Ear: Ear canal and external ear normal. Ears: Comments: Left TM erythematous and bulging. Nose: Congestion present. No rhinorrhea. Mouth/Throat: Mouth: Mucous membranes are moist. Pharynx: Posterior oropharyngeal erythema present. No oropharyngeal exudate. Eyes: General: Right eye: No discharge. Left eye: No discharge. Extraocular Movements: Extraocular movements intact. Conjunctiva/sclera: Conjunctivae normal. Pupils: Pupils are equal, round, and reactive to light. Cardiovascular: Rate and Rhythm: Regular rhythm. Pulses: Normal pulses. Heart sounds: Normal heart sounds. No murmur heard. No friction rub. Pulmonary: Effort: Pulmonary effort is normal. No respiratory distress. Breath sounds: Normal breath sounds. No stridor. No wheezing, rhonchi or rales. Comments: Harsh cough with deep inspiration Chest: Chest wall: No tenderness. Abdominal: General: Abdomen is flat. There is no distension. Palpations: Abdomen is soft. There is no mass. Tenderness: There is no abdominal tenderness. There is no right CVA tenderness, left CVA tenderness, guarding or rebound. Hernia: No hernia is present. Musculoskeletal: General: No swelling, tenderness, deformity or signs of injury. Normal range of motion. Cervical back: Normal range of motion and neck supple. No rigidity. Right lower leg: No edema. Left lower leg: No edema. Lymphadenopathy: Cervical: Cervical adenopathy present. Skin: General: Skin is warm and dry. Coloration: Skin is not jaundiced or pale. Findings: No bruising, erythema, lesion or rash. Neurological: General: No focal deficit present. Mental Status: She is alert and oriented to person, place, and time. Cranial Nerves: No cranial nerve deficit. Sensory: No sensory deficit. Motor: No weakness. Coordination: Coordination normal. Gait: Gait normal. Psychiatric: Mood and Affect: Mood normal. Behavior: Behavior normal. Thought Content: Thought content normal. Judgment: Judgment normal. Assessment and Plan ASSESSMENT/PLAN: 1. Acute otitis media, left - ICD9: 382.9, ICD10: H66.92 (primary diagnosis) - Will begin treatment with as per antibiotic as written, see orders - The patient should also be given OTC cough and cold meds as needed, warm salt water gargles, throat lozenges and/or OTC throat spray as needed, and nasal saline gtts and suction prn for the first 5-7 days of treatment. - Supportive care with plenty of fluids, rest, and analgesia prn. - Follow up in 3-5 days if symptoms persist or worsen. 2. URI, acute - ICD9: 465.9, ICD10: J06.9 - Symptomatic treatment with prn analgesia - Supportive care with fluids and rest - The patient may also use OTC cough and cold meds as needed, warm salt water gargles, throat lozenges and/or OTC throat spray as needed, and nasal saline gtts and suction prn. - Follow up in 3-5 days if symptoms persist or sooner if worsening of symptoms - Declines COVID RX Prednisone taper Latha Fatima APRN.CARDIAC REHABILITATION PROGRAM DIRECTOR documented in this encounterFayette [facility]02-15-2024 Miscellaneous Notes* Telephone Encounter - Valeria Ochoa - 11/03/2023 3:05 PM EST Patient has been scheduled for their MNK US Exam on 11/30/23 : 1:35 PM at [place]. * Telephone Encounter - Bee Barbour PCNA - 11/03/2023 2:55 PM EST Patient called the MNK US Department back on 11/03/23: 14:55. Please give this patient a call back to ensure that they receive an appointment. * Telephone Encounter - Delfin Gan - 11/03/2023 11:54 AM EST Called patient on November 03, 2023 at 11:54 AM to schedule their MSK US exam. No answer, left VM, 1st attempt. * Telephone Encounter - Bee Barbour PCNA - 11/03/2023 11:39 AM EST Visit Type: ANY MSKx2 Visit Length: 90, 100 OR 120 MINUTES Order Name/Protocol: US WRIST RT; VOLA+CARPAL TUNNEL AND US ELBOW RT; MEDIAL Preferred Provider: N/A Comment: Please ask if the patient has ever had any prior surgery to their RT wrist/elbow. If so, upgrade the visit type to an MSK1x2 and notate the surgical hx in the Appointment Note. Location: Depending on the surgical hx, this patient can have this exam performed at any of our three locations. Slot held: N/A documented in this encounterFayette County [facility] Hospital02-15-2024 History of Present illness Narrative* Jose Bryant MD - 11/03/2023 10:31 AM EST Jose Bryant MD Department of Orthopaedics Orthopaedics [address] [facility] [address] Dept: [phone] Dept November 03, 2023 CHIEF COMPLAINT: Established Patient and Follow Up of the Right Elbow and Established Patient and Follow Up of the Right Hand HPI Patient is 9 months post visit right elbow ulnar neuropathy and right CTS. She is here today for the right hand and forearm pain. 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 Has been taking Aleve without relief. ASSESSMENT: R20.0 Bilateral hand numbness (primary encounter diagnosis) PLAN: Last time I saw her we discussed her normal MRI and normal nerve testing, thus we were going to get MSK US at the wrist and at the elbow. She is going to try her best to get these scheduled. I still do not know why she is having these problems. OBJECTIVE: Ms. Arlet Navarro is a pleasant 38 year old in no apparent distress. Gen:There were no vitals taken for this visit. nl development, non obese, no deformities ENT: Normocephalic, normal hearing, moist mucosa CV: Pulses:Radial= 2+ and symmetric, capillary refill < 2 secs, no peripheral edema/varicosities Skin: no rash, bruising or lesions. Good turgor. Psych: cooperative and appropriate, alert and oriented x 3, good mood and affect. Musculoskeletal: Normal appearing hand. No tenderness. Sensation intact. Imaging: Deferred today. Supporting Subjective Information Below: Past Surgical History: PAST SURGICAL HISTORY Procedure Laterality Date HYSTERECTOMY HX 2011 has left ovary LAP UMBILICAL HERNIA REPAIR Medications: Current Outpatient Medications Medication Sig loratadine (CLARITIN) 10 mg tablet Take 1 tablet by mouth once daily. omeprazole (PRILOSEC) 40 mg capsule Take 1 capsule by mouth once daily. fluticasone (FLONASE) 50 mcg/actuation nasal spray Use 2 Sprays in each nostril once daily. Rinse mouth after use. melatonin 3 mg tablet Take 3 mg by mouth once daily. albuterol HFA (PROAIR HFA) 90 mcg/actuation inhaler Inhale 2 Puffs as instructed every 6 hours as needed. (Patient not taking: Reported on 11/03/2023) etodolac (LODINE) 400 mg tablet Take 1 tablet by mouth twice daily. (Patient not taking: Reported on 11/03/2023) No current facility-administered medications for this visit. Allergies: [place] [Hydrocodone-Acetaminophen] ROS: General (negative for fatigue, malaise, weight loss/gain) HEENT (negative for headache, earache, recent vision changes, sinus pain, sore throat) Respiratory (no recent shortness of breath, hemoptysis) CV (negative for chest tightness, palpitations) Musculoskeletal (see HPI) Psych (no depression, anxiety) Jose Bryant MD documented in this encounterFayette County [facility]02-07-2024 Instructions* Patient Instructions* Tootie Mujica APRN.CARDIAC REHABILITATION PROGRAM DIRECTOR - 10/26/2023 1:45 PM EST Counseling and Psychiatry Services [facility] [address] [place] [address] *counseling [facility]ICAL [facility]SELING [facility] [address] [facility], [address] [facility] [address] *counseling [facility] [address] [place] [address] *counseling [facility] [address] [place], [place] [address] *counseling and psychiatry [place] [address] [place], [place] [address] *counseling [address] [address] *counseling [place] [address] [facility] [phone] *counseling [place] [address] [place] [address] *counseling [facility] [address] [place], [place] [id number] [facility] [address] [facility] [address] [place] [address] *counseling [facility] [address] [place] [address] [facility] [address] [place], [place] [address] *counseling [facility] [address] [facility] [address] [place] [address] [employer] [address] [facility] [place] [address] *counseling [facility] [address] [facility] [address] [place], [place] [id number] *counseling [facility] [address] [place], [place] [id number] *counseling and psychiatry [facility], [address] [place], [place] [address] *psychiatry [facility] [phone] *grief counseling, individual and groups *If you ever experience a mental health crisis please call [phone], 911, Please verify with insurance provider for coverage GET HELP If you have symptoms of clinical depression, you can get help by doing one or more of the followin. Please talk with your doctor. 2. If you are already in treatment, make sure you contact and update your doctor or therapist. 3. Call the [facility] Department of Psychiatry & Psychology at [phone] (select Option 1) or [phone] (select Option 1) 4. Review additional options for care based on patient or provider preference: Central/Multiple Locations: [facility]: Multiple Locations - [phone] [facility]: [address] [facility]- [phone] Marc Purcell: [address] [facility]- [phone] [employer]: [address] [facility] - [phone] [employer]: [address] [facility] - [phone] [facility] and Children: [facility]0 [facility] - [phone] (Medicaid only) [facility]: Multiple Locations - [phone] (Medicaid only) [facility]: Multiple Locations - [phone] Julio César Morales [facility] - Multiple Locations - [phone] (Medicaid only) [facility] Multiple Locations- [phone] Psychological and Behavioral Consultants: Multiple Locations - [phone] [facility]: Multiple Locations - [phone] [facility] Locations: [facility]: [address] [facility] - [phone] Erin Taveras PhD and Associates: [address] [facility] - [phone] [facility]: [address] [place] [address] - [phone] [facility] [address] [facility] [address] Haskins - [phone] So Flores MD: [address] [place] Thania [place]- [phone] [facility] [address], [place] - [phone] [facility]: [address] [facility] [address] [place] - [phone]; 24 hotline - [phone] [facility], [address] [facility] - [phone] [place] Locations: Evangelina Alejandre MD [facility] Inc: [address], [place] - [phone] Erin Taveras PhD [facility] Associates: [address] [facility] - [phone] [facility] Services: [address] [facility] - [phone] [facility] [address] [facility] - [phone] [facility], [address] - [phone] [facility] - [address] [place] [facility] - [phone] [facility]: [address] [facility] [facility] [phone] South Side Locations: [facility] and [facility]ing Services [facility] [address] [facility] -[phone] [facility] L Vince Mckeon, [facility]. - [phone] [facility] Psychiatry: [address] [facility] Thania [place]- [phone] [facility]: [address] [facility],- [phone] [facility] - [address] [facility] Adriana [place] - [phone] For additional resources and information please call 2-1 or review the website: [email or web address] [email or web address]/ If you are feeling suicidal, please call Mobile Crisis, , or the National Suicide Hotline , Call 341, or go to your nearest emergency room documented in this encounterFayette County Memorial Hospital02-07-2024 History of Present illness Narrative* Tootie Mujica APRN.ANALISA - 10/26/2023 1:37 PM EST 10/26/2023 Patient presents with: Anxiety: And depression; has gotten worse the last week. SUBJECTIVE: This is a 38 year old that is here today for Above Complaints. Having difficulty with co-worker. Reports HR did step in to help. Not sleeping well. Denies SI, HI or insomnia. Would like referral for counseling PHQ9: 16 BELL: 16 Needs refill for her Claritin. Eyes watery, allergies acting up. Being treated for double ear infection. Taking Augmentin as prescribed by [facility]. Also being treat with valtrex for blisters in mouth and on tongue. Reports some improvement with symptoms. PAST MEDICAL HISTORY Diagnosis Date Arthritis Kidney stones Nocturnal hypoxia ZOFIA (obstructive sleep apnea) ALLERGIES [place] [Hydrocodone-Acetaminophen] MEDICATIONS Current Outpatient Medications Medication Sig valACYclovir (VALTREX) 1 gram tablet Take 1 tablet by mouth three times a day for 7 days. amoxicillin-clavulanate potassium (AUGMENTIN) 875-125 mg per tablet Take 1 tablet by mouth two times a day for 7 days. omeprazole (PRILOSEC) 40 mg capsule Take 1 capsule by mouth once daily. fluticasone (FLONASE) 50 mcg/actuation nasal spray Use 2 Sprays in each nostril once daily. Rinse mouth after use. albuterol HFA (PROAIR HFA) 90 mcg/actuation inhaler Inhale 2 Puffs as instructed every 6 hours as needed. loratadine (CLARITIN) 10 mg tablet Take 1 tablet by mouth once daily. etodolac (LODINE) 400 mg tablet Take 1 tablet by mouth twice daily. melatonin 3 mg tablet Take 3 [...] and negative other than HPI. OBJECTIVE: BP 88/64 Pulse 82 Resp 18 Wt 77.1 kg (170 lb) SpO2 99% BMI 34.34 kg/m . Vital signs reviewed by this provider. APPEARANCE Well appearing, alert, in no acute distress, well-hydrated, well nourished. EYES conjunctiva and sclera normal. Eyes watery EARS External ears normal, canals clear Oropharynx: Lips, mucosa, and tongue normal, teeth and gums normal, oropharynx normal NECK Supple, no adenopathy; thyroid symmetric, normal size HEART RRR with normal S1 and S2, no murmurs, no gallops, no JVD appreciated LUNG clear to auscultation. No wheezes, rhonchi or rales SKIN Skin color, texture, turgor normal, no suspicious rashes or lesions to exposed skin PSYCH: Posture and motor behavior: normal posture and motor behavior Dress, grooming, personal hygiene: normal dress and grooming Facial expression: smiling and good eye contact Speech: normal speech Mood: cheerful Coherency and relevance of thought: normal thought processes Memory: normal memory Hepatitis B Vaccine(1 of 3 - 3-dose series) Never done Hepatitis C Screening Never done HIV Screening Never done DTaP,Tdap,Td Vaccine(1 - Tdap) Never done HPV Testing Never done Influenza Vaccine(1) due on 05/20/2023 Covid-19 Vaccine(4 - 2022-24 season) due on 05/20/2023 Depression Assessment Never done Pap Testing due on 10/13/2027 HPV Vaccine Aged Out ASSESSMENT/PLAN: 1. Anxiety and depression - ICD9: 300.00, 311, ICD10: F41.9, F32.A (primary diagnosis) - not interested in medication as this time - handout of local counseling agencies provided - follow-up if symptoms fail to improve - discussed sleep hygiene. Ay use OTC benadryl 2. Watery eyes - ICD9: 375.20, ICD10: H04.203 - LORATADINE 10 MG TABLET - follow-up if symptoms fail to improve Tootie Mujica APRN.CARDIAC REHABILITATION PROGRAM DIRECTOR Prescription instructions reviewed with patient as applicable. Patient advised if symptoms do not improve or if symptoms worsen sooner, to contact their primary care physician. Potential red flag symptoms discussed with the patient. Reviewed appropriate action plan to take if red flag symptoms occur. Patient agreeable to treatment plan. Medical Decision Making: Problems: Moderate: New problem with uncertain prognosis Risk: Moderate: Moderate risk from testing/treatment Medical Decision Making Level: 4 - Moderate documented in this encounterFayette County [facility] Hospital01-22-2024 Discharge summary Author Jose Peters [facility] October 10, 2023 3:15pm Note Date/Time October 10, 2023 3 :05pm [facility] Medical Records Department [address] [place] [address] Emergency Department Summary 10/10/23 MR#: [id number] Acct: [id number] Name: ARLET NAVARRO Rep #:[id number] : 1985 38 From: Jose Peters MD PCP: Dr. Ian Mon MD Status:DEP ER Location: ED HPI History of Present Illness Chief Complaint: Upper Extremity Injury Informant: patient Narrative Narrative: Patient states 4 days ago she used her teeth to pull a hangnail off of her finger. Later that day she started having soreness there, and it looked like a small green bubble at her fingertip. She has been using peroxide on it every day since then. She went to urgent care for this today, they did an x-ray and she states it was reported to her that there was some air there and she was referred here to the ER because of the potential for gangrene. She has focal pain at this area only and she denies any systemic symptoms. There has been no discharge or bleeding. [facility] Medical History Kidney disease Kidney stones Pneumonia Smoker Wheezes Home Medications omeprazole 40 mg capsule,delayed release 40 mg PO DAILY 12/09/21 [History Last Taken Unknown] azelastine 137 mcg (0.1 %) nasal spray aerosol 2 spray intranasal BID #30 mL 10/23/22 [Rx Last Taken Unknown] doxycycline monohydrate 100 mg capsule 100 mg PO BID #20 CAPSULES 10/23/22 [Rx Last Taken Unknown] promethazine 6.25 mg-codeine 10 mg/5 mL syrup 5 ml PO 4X/DAY PRN PRN cough 7 days #140 mL 10/23/22 [Rx Last Taken Unknown] albuterol sulfate 90 mcg/actuation aerosol inhaler (Ventolin HFA) 1 - 2 puff inhalation Q4H PRN PRN Wheezing #1 device 04/04/23 [Rx Last Taken Unknown] albuterol sulfate 90 mcg/actuation aerosol inhaler (Ventolin HFA) 1 - 2 puff inhalation Q4H PRN PRN Wheezing #8.5 grams 06/01/23 [Rx Last Taken Unknown] prednisone 50 mg tablet 50 mg PO DAILY #5 tabs 06/01/23 [Rx Last Taken Unknown] oxycodone-acetaminophen 5 mg-325 mg tablet (Percocet) 1 tab PO Q8H PRN pain 3 days #10 tabs 08/06/23 [Rx Last Taken Unknown] albuterol sulfate 90 mcg/actuation aerosol inhaler (Ventolin HFA) 2 puff inhalation Q4H PRN PRN Wheezing ##1 10/03/23 [Rx Last Taken Unknown] prednisone 20 mg tablet 60 mg (3 x 20 mg) PO DAILY #12 TABLETS 10/03/23 [Rx Last Taken Unknown] cephalexin 500 mg capsule 500 mg PO TID #21 CAPSULES 10/10/23 [Rx Last Taken Unknown] Allergy/AdvReac Type Severity Reaction Status Date / Time hydrocodone bitartrate Allergy Hives Verified 10/10/23 14:19 [From [place]] Family History Other Heart disease Surgical History History of hysterectomy Social History household members: none Smoking Status: Current every day smoker tobacco type: cigarettes alcohol intake: current alcohol intake frequency: other substance use type: does not use ROS ROS ED Constitutional Constitutional ED: Denies chills or fever(s) Musculoskeletal Musculoskeletal: Reports extremity pain; Denies neck pain Integumentary Reports wounds; Denies Abrasions or rash Neurologic Neurologic: Denies paresthesias or weakness EXAM Physical Exam Const Vital Signs: 10/10/23 14:17 Temperature 97.8 F Temperature Source Temporal Pulse Rate 103 H Respiratory Rate 16 Blood Pressure 123/63 H Blood Pressure Mean 83 Pulse Ox 100 Oxygen Delivery Method Room Air Positive well nourished and well developed General Appearance ED: well developed and NAD Neck full ROM and supple Back/Spine normal ROM and normal to inspection Extremity full ROM Extremity Narrative: Right ring finger: Patient has a subcentimeter small area at the fingertip ulnaraspect but not involving the paronychia that appears to be a blood blister. It is ecchymotic, it is tender. There is no surrounding cellulitis, swelling of the digit, lymphangitis, or limited range of motion. The nail is normal. Neuro oriented x3, no focal motor deficits and no sensory deficits noted Sensorium / Orientation: alert Psych mental status grossly normal and thought process normal Skin no wounds Rashes: no rashes MDM MDM MDM Narrative Medical decision making narrative: I reassured patient that she does not have gangrene. There is no crepitance here and there is no extension and it is very small and localized to where she had been biting her nail. Because she was biting her nail, I am considering thepossibility of a localized infection and placing her on cephalexin. I offered to perform a simple I&D of the area with a needle, she was amenable, see the procedure note, there was no discharge. Reassured, I placed a bandage with bacitracin, and we discussed follow-up and reasons to return. Procedures Other Procedures Procedure(s): Simple incision and drainage right ring finger blister: Concerningthe possibility of infection, this procedure was performed after the patient consented after discussing pros and cons. It was wiped with isopropanol and then prepped with Betadine swab, the roof of the lesion was entered from the side with a 21-gauge needle, there was no discharge even with expressing. Dressed with bacitracin no complications tolerated well. Discharge Plan Triage Chief Complaint: Upper Extremity Injury ED Provider: Jose Peters Dx/Rx/DC Orders Clinical Impression: Finger, blister, infected Instructions: ED Blister (Adult) Prescriptions: New cephalexin [cephalexin] 500 mg capsule 500 mg PO TID Qty: 21 0RF No Action omeprazole 40 mg capsule,delayed release(DR/EC) 40 mg PO DAILY doxycycline monohydrate 100 mg capsule 100 mg PO BID Qty: 20 0RF azelastine 137 mcg (0.1 %) aerosol,spray 2 spray intranasal BID Qty: 30 0RF Rx Instructions: administer into each nostril promethazine-codeine 6.25-10 mg/5 mL syrup 5 ml PO 4X/DAY PRN PRN (Reason: cough) 7 Days Qty: 140 0RF albuterol sulfate [Ventolin HFA] 90 mcg/actuation HFA aerosol inhaler 1 - 2 puff inhalation Q4H PRN PRN (Reason: Wheezing) Qty: 1 0RF prednisone 20 mg tablet 60 mg PO DAILY Qty: 12 0RF albuterol sulfate [Ventolin HFA] 90 mcg/actuation HFA aerosol inhaler 2 puff inhalation Q4H PRN PRN (Reason: Wheezing) Qty: 1 0RF prednisone 50 mg tablet 50 mg PO DAILY Qty: 5 0RF albuterol sulfate [Ventolin HFA] 90 mcg/actuation HFA aerosol inhaler 1 - 2 puff inhalation Q4H PRN PRN (Reason: Wheezing) Qty: 8.5 0RF oxycodone-acetaminophen [Percocet] 5-325 mg tablet 1 tab PO Q8H PRN (Reason: pain) 3 Days Qty: 10 0RF Primary Care Provider: Ian Mon Referrals: Ian Mon MD [Primary Care Provider] - 1 Week if not improving Disposition Disposition: Home, Self Care What to do if you have Problems For any increased pain, shortness of breath, bleeding, nausea or vomiting, chestpain, or any unexpected problems, contact your Primary Care Provider. Call [facility] ([phone]) or report to the closest Emergency Room. Call 911 if necessary. 10/10/23 1515 <Electronically signed by Jose Peters MD> Cosigner Signature (if applicable): CC: Dr. Ian Mon MD ~ Signed [facility] Work Phone: 1(438) 467-725401-22-2024 History of Present illness Narrative* Nikky Henderson, RT(R) - 10/10/2023 1:20 PM EST Radiology Service Progress Note PATIENT NAME: Arlet Navarro DATE OF SERVICE: October 10, 2023 TIME: 1:13 PM PATIENT IDENTITY VERIFICATION COMPLETED USING TWO (2) IDENTIFIERS: Name and Date of confirmedby patient verbally. FALL SCREENING: Has the patient had 2 falls in the last year or 1 fall with injury or currently using an Ambulatory Assistive Device (Walker, Cane, Wheelchair, Crutches, etc.)? No PATIENT GENDER DATA: Female. status: : No status: NO. PATIENT RELEVANT IMPLANT DATA REVIEWED: Yes RADIOLOGY DEPARTMENT: General X-ray: Exam(s) Completed: Upper Extremity X- Ray(s): Fingers/Thumb, right ring PERIPHERAL IV DATA: Not applicable SIGNED BY: RT Nasra(R) October 10, 2023 1:13 PM documented in this encounterFayette [facility]12-04-2023 History of Present illness Narrative* Tierney Mcclure APRN.[facility] - 08/22/2023 6:05 PM EST CC: Patient presents with: Nausea: diarrhea x [...] left ovary LAP UMBILICAL HERNIA REPAIR ALLERGIES [place] [Hydrocodone-Acetaminophen] MEDICATIONS albuterol HFA (PROAIR HFA) 90 [...] symptoms occur. Patient agreeable to treatment plan. Tierney Mcclure APRN.CARDIAC REHABILITATION PROGRAM DIRECTOR documented in this encounterFayette County [facility] Hospital11-20-2023 History of Present illness Narrative* Lizz Stewart LPN - 08/08/2023 11:53 AM EST Scan on 08/06/2023 5:56 PM by Provider, ALEXA Cortes: X-ray documented in this encounterFayette County [facility] Hospital09-05-2023 Miscellaneous Notes* Telephone Encounter - Bailey Contreras LPN - 05/24/2023 9:59 AM EDT Patient has been identified by name and date of : Yes Patient phones for refill(s): Requested Prescriptions Pending Prescriptions Disp Refills omeprazole (PRILOSEC) 40 mg capsule 30 capsule 2 Sig: Take 1 capsule by mouth once daily. Date of last office visit in primary care: 12/01/2022 Please advise. Thank you. Bailey Contreras LPN documented in this encounterFayette County [facility] Hospital07-27-2023 Miscellaneous Notes* Telephone Encounter - Meaghan Cook RN - 04/14/2023 11:56 AM EDT Patient returned call and given provider's message below. Adeline Cook RN * Telephone Encounter - Georgiana Antonio MA - 04/13/2023 12:57 PM EDT Attempted to reach patient, no answer. VM full. message sent. Georgiana Antonio MA * Telephone Encounter - Shaniqua Beckford MD - 04/13/2023 10:49 AM EDT HSAT confirms at least mild sleep apnea with hypoxia into the 70's. Hypoxia out of proportion to her mild sleep apnea. Recommending in lab pap titration. documented in this encounterFayette County [facility] Hospital07-24-2023 History of Present illness Narrative* Luke Washington - 04/11/2023 10:02 AM EDT Sleep Study Check-In Documentation Date: April 11, 2023 Name: Arlet Navarro Comments: HST was returned in working order with all sleep questionnaires Luke Washington * Luke Washington - 04/05/2023 5:25 PM EDT Nomad# [id number], date shipped out 04/05/23 Tracking mailout: [phone] Tracking return: [id number] [id number] * Trever Delacruz III, PhD - 03/31/2023 1:30 PM EDT March 31, 2023 Standing PSG Orders signed in the last 90 days None Future PSG Orders signed in the last 90 days Ordered Auth. provider HOME SLEEP APNEA TEST (HSAT) [[id number]] 01/20/23 Shaniqua Beckford MD Assoc. diagnoses: Daytime somnolence [R40.0] Q: Indications: A: Obstructive sleep apnea Q: STOP-BANG conditions - Select All That Apply: A: TIREDNESS, fatigue or sleepiness during the dayA2: SNORING that is loud or disruptive A3: OBSERVED sleep apnea Q: Current use of supplemental oxygen during sleep period?: A: No All Prior Sleep Studies (past 365 days) Some values may be hidden. Unless noted otherwise, only the newest values recorded on each date aredisplayed. Sleep Studies HOME SLEEP APNEA TEST (HSAT) [...] and Related Procedures, or if the sleep studyis indicated for other reasons. Indications for study: ZOFIA suspected without comorbid medical or sleep disorders Sleep study to be performed: Home Sleep Apnea Test (HSAT) Special instructions: None-follow laboratory protocol [facility] Staff Note: I have read the above protocol, edited as needed, and agree to the plan. Trever Delacruz III, PhD 4:59 PM, 03/31/2023 * Elida Denny - 03/30/2023 11:35 AM EDT March 30, 2023 An order has been received for Home Sleep Apnea Test (HSAT) from Shaniqua Potter MD , a [facility] Staff. Visit prep complete. Comments :No The sleep study is scheduled for 04/22. Insurance: Payor: Campus Sponsorship MEDICAID / Plan: [id number] Group MEDICAID [facility] / Product Type: Medicaid / Payer/Plan Subscr Sex Relation Sub. Ins. ID Effective Group Num 1. RODRIGEZ MEDICA* EDDIE NAVARROFranck* 1985 Female Self [id number] 10/20/22 [id number] [address] [address] Elida Denny documented in this encounterFayette County [facility] Hospital07-17-2023 History of Present illness Narrative* Lizz Stewart LPN - 04/04/2023 4:32 PM EDT Scan on 04/04/2023 3:06 PM by Provider, ALEXA Cortes: X-ray documented in this encounterFayette County [facility] Hospital06-29-2023 Miscellaneous Notes* Telephone Encounter - Jose Love - 03/17/2023 9:43 AM EDT Called patient on 03/17 at 9:43 to schedule their MSK US exam. No answer, left VM, 3rd attempt. * Telephone Encounter - Jose Love - 03/16/2023 9:37 AM EDT Called patient on 03/16 at 9:37 to schedule their MSK US exam. No answer, VM is full, 2nd attempt. * Telephone Encounter - Jose Love - 03/15/2023 9:31 AM EDT Called patient on 03/15 at 9:31 to schedule their MSK US exam. No answer, VM is full, 1st attempt. * Telephone Encounter - Jose Love - 03/14/2023 2:33 PM EDT Visit Type: ANY MSKx2 Visit Length: 90, 100 OR 120 MINUTES Order Name/Protocol: US WRIST RT; VOLAR+CARPAL TUNNEL AND US ELBOW RT; MEDIAL- EVAL ULNAR NERVE Preferred Provider: N/A Comment: Please [...] locations. Slot held: N/A documented in this encounterFayette County [facility] Hospital06-12-2023 Miscellaneous Notes* Telephone Encounter - Leila Garcia LPN - 02/28/2023 3:07 PM EDT Patient phones requesting refills as follows: Requested Prescriptions Pending Prescriptions Disp Refills omeprazole (PRILOSEC) 40 mg capsule 30 capsule 2 Sig: Take 1 capsule by mouth once daily. MIAN-12/01/22 Labs-01/13/23 NOV-none Please review and advise. Leila Garcia LPN documented in this encounterFayette County Memorial Hospital05-11-2023 History of Present illness Narrative* Jose Bryant MD - 01/27/2023 3:41 PM EDT Jose Bryant MD Department of Orthopaedics Orthopaedics [address] [place] [id number] Dept: [phone] Dept January 27, 2023 CHIEF COMPLAINT: Established Patient and Pain of the Right Wrist HPI Patient here today for ongoing right wrist pain. States she had to leave work today because shedropped something and broke it and burnt her hand. 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 Lathe [employer]in[employer] 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 Still having some symptoms which are not difficult to fully sort out with dropping thingsand numbness in the hand. My recommendation is [...] light touch on examination. Negative Tinel's and veryminimal provocative symptoms with median nerve compression testing [...] current facility-administered medications for this visit. Allergies: [place] [Hydrocodone-Acetaminophen] ROS: General (negative for fatigue, malaise, weight loss/gain) HEENT (negative for headache, earache, recent vision changes, sinus pain, sore throat) Respiratory (no recent shortness of breath, hemoptysis) CV (negative for chest tightness, palpitations) Musculoskeletal (see HPI) Psych (no depression, anxiety) Jose Bryant MD documented in this encounterFayette County [facility] Hospital05-11-2023 Miscellaneous Notes* Telephone Encounter - Cecilia Love MD - 01/27/2023 12:23 PM EDT Patient was seen in May 2022 and had wrist MRI in July. She presented to the [facility] care today because she is still having issues with her right wrist - pain, weakness, numbness. It is interfering with her ability to work. She has not heard results from the July MRI yet. Follow up appointment scheduled with ortho to review results and get recommendations for treatment/work up. documented in this encounterFayette County [facility] Hospital05-11-2023 History of Present illness Narrative* Cecilia Love MD - 01/27/2023 11:43 AM EDT Patient presents with: right hand pain: Dropped coffee pot this am and burnt hand HPI: Wrist pain: Location: right hand below the thumb Duration: years Pruritis/Pain: pain and numbness Change: worsened pain, numbness, and weakness. 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 Drainage/blister/pustule/ulceration: dropped and broke a coffee pot today [...] mouth once daily. ALLERGIES: ALLERGIES Allergen Reactions [place] [Hydrocodone-* Hives, Swelling VITALS: BP 110/74 Pulse [...] orthopedics. I will send a phone encounter notingconcerns about MRI result and difficulty performing her job. Cecilia Love MD documented in this encounterFayette County [facility] Hospital05-04-2023 Miscellaneous Notes* Telephone Encounter - Hoda Lin Ma - 01/20/2023 2:17 PM EDT Patient was notified and given number to call for home test Hoda Lin Ma * Telephone Encounter - Shaniqua Beckford MD - 01/20/2023 1:22 PM EDT Based on those symptoms would recommend HSAT to evaluate for possible sleep apnea. While waiting onresults would recommend sleeping on her side instead of back or stomach and should work on healthy diet and exercise to promote weight loss. * Telephone Encounter - Hoda Lin Ma - 01/20/2023 12:44 PM EDT Spoke to Cheyanne who advised she does have daytime sleepiness, snoring and has been told that she stops breathing for few seconds while snoring. Regarding dental patient has dentist Hoda Lin Ma * Telephone Encounter - Wilda Rosado RN - 01/18/2023 3:29 PM EDT Tried calling Pt her VM was full. Will need to call back later. * Telephone Encounter - Tootie Mujica APRN.CNP - 01/18/2023 12:29 PM EDT Please call patient and let her know hematology thinks white count possible related to stress possibly ( sleep apnea.) She reported she had fatigue. Does she notice if she is often drowsy in the middle of the day. Has she been told she snores or stops breathing for a few seconds when sleeping. Alsoinquiring about teeth- does she have a lot of dental caries? Tootie Mujica APRN.CNP documented in this encounterFayette County [facility] Hospital04-27-2023 Miscellaneous Notes* Telephone Encounter - Liz Juarez LPN - 01/13/2023 8:30 AM EDT Phoned patient and reviewed results and recommendations with her. She voiced understanding. * Telephone Encounter - Tootie Mujica APRN.CNP - 01/12/2023 7:10 PM EDT Please call patient and let her know her blood shows increased white count as it has in the past. Ireached out to our contract negotiator and he recommended some additional labs. I have placed orders for these and she can come complete at her convenience. Tootie Mujica APRN.CNP documented in this encounterFayette County [facility] Hospital03-15-2023 Instructions* Patient Instructions* Tootie Mujica APRN.CNP - 12/01/2022 7:11 PM EDT Follow-up pending testing documented in this encounterFayette County [facility] Hospital03-15-2023 History of Present illness Narrative* Tootie Mujica APRN.CNP - 12/01/2022 6:40 PM EDT 12/01/2022 Patient presents with: Multiple Concerns: Patient [...] this. Denies sinus pain/pressure. Uses OTC nasal decongestantspray frequently. Admits to rhinorrhea and nasal congestion [...] HISTORY Diagnosis Date Arthritis Kidney stones ALLERGIES [place] [Hydrocodone-Acetaminophen] MEDICATIONS Current Outpatient Medications Medication Sig [...] 2 Puffs as instructed every 4 hours asneeded for wheezing/shortness of breath. melatonin 3 mg [...] - LORATADINE 10 MG TABLET Tootie Mujica APRN.CARDIAC REHABILITATION PROGRAM DIRECTOR Prescription instructions reviewed with patient as applicable. [...] which included preparing to see the patient, [id number] patient care, completing clinical documentation, obtaining and/or reviewing separately obtained history, performing a medically appropriate examination, counseling and educating the pat ient/family/caregiver, and ordering medications, tests, or procedures. documented in this encounterFayette County [facility] Hospital03-15-2023 Miscellaneous Notes* Telephone Encounter - Jose Miguel Patel LPN - 12/01/2022 10:41 AM EDT Patient scheduled appointment this day. Jose Miguel Patel LPN documented in this encounterFayette County [facility] Hospital2023 Instructions* Patient Instructions* Carito Medeiros PA-C - 11/15/2022 3:37 PM [...] cause gastroenteritis, including rotaviruses, adenoviruses, and the [place] virus. Gastroenteritis is caused by swallowing one of these viruses. The body fluids of infectedpeople contain the virus, sometimes even before their [...] a long time, you must replace the minerals,sodium and potassium, that are lost when you [...] recommended on the package. If you have c hronic health problems, always check with your health care provider before you use any medicine fordiarrhea. If your vomiting or diarrhea persists for more than three days without improvement, please call theoffice. It is not uncommon for symptoms to improve for a few days and then reoccur for another day or two within a two to three week period. If symptoms persist longer, or is excessive, you may need to have an exam to rule out more serious problems and to check for dehydration. You may also need tohave lab tests to determine whether bacteria or [...] lethargy. If you or your child have thesesymtpoms, please go to the emergency room for immediate attention and intravenous hydratiom. How long do the effects last? Stomach flu rarely lasts longer than 1 to 3 days. However, it may be 1 to 2 weeks before your bowelhabits return completely to normal. Again, it is [...] someone who has stomach flu. Published by [employer]. This content is reviewed periodically and is subject to change as new health information becomes available. The information is intended to inform and educate and is not a replacement for medical evaluation, advice, diagnosis or treatment by a healthcare professional. Developed by [employer]. Copyright 2005 [employer] and/or one of its subsidiaries. All Rights Reserved. Special Instructions: If severe pain, faintness, muscle aches, go to the emergency department. documented in this encounterFayette County [facility] Hospital2023 History of Present illness Narrative* Carito Medeiros PA-C - 11/15/2022 3:22 PM EST 37 year old female with c/o 2 months ago started with congestion, SOB. Went to said had URI Went to ER 2 weeks later with multifocal pneumonia. About 2 weeks later tested + positive for Strep. Vomited mostly from cough, about 4 times. Now having diarrhea. 3a this morning with stools every 15 minutes, at least thirty. Feeling lightheaded and dizzy but not syncopal. [...] 2 Puffs as instructed every 4 hours asneeded for wheezing/shortness of breath. 18 g 0 [...] instructions. Carito Medeiros PA-C documented in this encounterFayette County Memorial Hospital02-26-2023 History of Present illness Narrative* Abe Calzada APRN.CARDIAC REHABILITATION PROGRAM DIRECTOR - 11/14/2022 3:10 PM EST Images from the original note were not [...] left ovary LAP UMBILICAL HERNIA REPAIR ALLERGIES [place] [Hydrocodone-Acetaminophen] MEDICATIONS albuterol HFA (PROAIR HFA) 90 mcg/actuation inhaler Inhale 2 Puffs as instructed every 6 hours as needed. omeprazole (PRILOSEC) 40 mg capsule Take 1 capsule by mouth once daily. naproxen sodium 220 mg cap Take 220 mg by mouth once daily. albuterol HFA (VENTOLIN HFA) 90 mcg/actuation inhaler Inhale 2 Puffs as instructed every 4 hours asneeded for wheezing/shortness of breath. melatonin 3 mg [...] K08.89 Take medication as ordered See dentist kacy Follow up if signs of infection worsen - AMOXICILLIN 875 MG TABLET Abe Calzada APRN.CARDIAC REHABILITATION PROGRAM DIRECTOR documented in this encounterFayette County Memorial Hospital02-04-2023 Discharge summary Author Christopher [facility]Ohio[facility] October 23, 2022 3:33am Note Date/Time October 22, 2022 1 0:45pm [facility] Medical Records Department [address] [place] [address] Emergency Department Summary 10/22/22 MR#: [id number] Acct: [id number] Name: ARLET NAVARRO Rep #:[id number] : 1985 37 From: Vinay Romeo PCP: Dr. Ian Mon MD Status:REG ER Location: ED HPI History of Present Illness Chief Complaint: Shortness of Breath Informant: patient Onset/Context/Timing Onset: Weeks (1.5) Context: gradual Timing: Continuous Quality: Positive for Dyspnea on exertion Worsened by: - (Called mother) Relieved by: - (Hot shower) Associated Symptoms cough, rhinorrhea and green sputum; Negative for fever, sore throat, chills or sweats Chest Pain: Positive for Continuous and Pressure Narrative Narrative: Patient presents with shortness of breath that has been getting worse over the past 1-1/2 weeks. Patient states it is gradually getting worse. Patient statesit has been constant. Patient states her breathing is worse when she goes out into the cold weather. Patient states it is better whenever she takes a hot shower. Patient states she is coughing up some green sputum. Patient also admits to some green rhinorrhea. Patient denies any sore throat or ear pain. Patient admits to some heaviness in her chest. Patient denies any nausea or vomiting. PE Risk Factors: Negative for Cancer, OCP + Smoking + > 35, Prior DVT or PE, Recent immobilization, Recent surgery or Recent travel [facility] Medical History Kidney disease Kidney stones Smoker Wheezes Home Medications omeprazole 40 mg capsule,delayed release 40 mg PO DAILY 12/09/21 [History Last Taken Unknown] phenazopyridine 200 mg tablet (Pyridium) 200 mg PO TID #10 tabs 01/26/22 [Rx Last Taken Unknown] sulfamethoxazole 800 mg-trimethoprim 160 mg tablet (Bactrim DS) 1 tab PO BID 7 days #14 tabs 01/26/22 [Rx Last Taken Unknown] Allergy/AdvReac Type Severity Reaction Status Date / Time hydrocodone bitartrate Allergy Hives Verified 10/22/22 18:55 [From [place]] Family History Other Heart disease Surgical History History of hysterectomy Social History household members: none Smoking Status: Former smoker alcohol intake: current alcohol intake frequency: other substance use type: does not use ROS ROS ED Constitutional Constitutional ED: Denies chills or fever(s) Eyes Eyes: Denies blurry vision or change in vision ENT ENT ED: Reports rhinorrhea; Denies sore throat Cardiovascular Cardiovascular: Denies chest pain or palpitations Respiratory/Chest Respiratory/Chest: Reports cough and dyspnea Gastrointestinal Gastrointestinal: Denies nausea or vomiting Genitourinary Genitourinary ED: Denies dysuria or hematuria Musculoskeletal Musculoskeletal: Reports back pain; Denies neck pain Integumentary Denies abscess or rash Neurologic Neurologic: Denies headache(s) or weakness Allergic/Immunologic Allergic/Immunologic ED: Denies mouth swelling or urticaria EXAM Physical Exam Const Vital Signs: 10/22/22 18:54 10/22/22 23:13 10/22/22 23:13 Temperature 97.5 F L Temperature Source Temporal Pulse Rate 132 H Respiratory Rate 20 H 16 Respiratory Effort Respiratory Depth Respiratory Pattern Blood Pressure 120/82 H Blood Pressure Mean 94 Pulse Ox 93 96 96 Oxygen Delivery Method Room Air Room Air Room Air 10/22/22 23:32 10/23/22 00:52 Temperature Temperature Source Pulse Rate 105 H Respiratory Rate 18 Respiratory Effort Normal Respiratory Depth Normal Respiratory Pattern Normal Blood Pressure Blood Pressure Mean Pulse Ox Oxygen Delivery Method Room Air Positive well nourished, well developed and obese General Appearance ED: well developed and NAD Nutritional Appearance: obese HEENT Reports moist mucous membranes Neck supple and no JVD Resp normal respiratory effort Auscultation: wheezes left lower Cardio regular rate, regular rhythm and no murmurs GI normal to inspection, nondistended, normoactive bowel sounds Palpation: soft Extremity normal to inspection General Extremety ED: Negative for edema or tenderness General Extremity: Negative for edema Neuro oriented x3, CN's II-XII intact bilaterally and no sensory deficits noted Sensorium / Orientation: alert Motor Exam: strength 5/5 throughout Psych mental status grossly normal Skin no rashes or lesions noted MDM MDM MDM Narrative Medical decision making narrative: Differential diagnosis includes pneumonia, viral upper respiratory infection, pneumothorax, and pulmonary embolus. Chest x-ray will be obtained to assess forpneumonia and pneumothorax. COVID-19 rapid antigen will be obtained to assess for COVID-19 infection. Influenza A and influenza B rapid antigens will be obtained to assess for influenza infection. CBC will be obtained to assess for leukocytosis and anemia. Basic metabolic profile will be obtained to assess forelectrolyte abnormality and renal function. D-dimer will be obtained to assess for possible pulmonary embolism. Lab Data Lab results narrative: COVID-19 rapid antigen was reviewed and was negative. Influenza A and influenzaB rapid antigens were reviewed and were negative. BC was reviewed and showed a leukocytosis of 21.0. Basic metabolic profile was reviewed and was within normal limits. D-dimer was reviewed and was elevated at 0.66 Labs: Laboratory Results - last 24 hr 10/22/22 10/22/22 10/22/22 23:10 23:10 23:27 WBC 21.0 H RBC 4.99 Hgb 14.4 Hct 42.9 MCV 86.0 MCH 28.9 MCHC 33.6 RDW Std Deviation 38.9 RDW Coeff of Raeann 12.5 Plt Count 278 MPV 10.3 Immature Gran % (Auto) 2.000 H Neut % (Auto) 77.2 H Lymph % (Auto) 13.6 L [place] % (Auto) 6.4 Eos % (Auto) 0.6 Baso % (Auto) 0.2 Absolute Neuts (auto) 16.2 H Absolute Lymphs (auto) 2.86 Nucleated RBC % 0 D-Dimer Quant (PE/DVT) 0.66 H* Sodium 139 Potassium 3.6 Chloride 106 Carbon Dioxide 24.0 Anion Gap 9 BUN 14 Creatinine 0.53 L Estim Creat Clear Calc 175.48 Est GFR (MDRD) Af Amer 168 Est GFR (MDRD) Non-Af 139 BUN/Creatinine Ratio 26.5 H Glucose 119 H Calcium 8.9 Radiography Chest X-Ray - ED: 1 View, Read by ED Physician, Read by Radiologist and No AcuteDisease Diagnostic Testing: Clinical Impression(s) from Imaging Studies Chest X-Ray 10/22/22 20:00 IMPRESSION: No radiographic evidence of acute cardiopulmonary disease. Electronically Signed: Conner Alvarez MD at 20:11 EST Reading Location ID and State: [facility] / [place] , Service support , Portable 1 view chest x-ray was obtained. On my independent interpretation, lung cornejo are clear. There is normal cardiac silhouette. Bony thorax is normal. There is no acute process noted. Radiologist also interpreted the x-ray and agrees. Because of the elevated D-dimer, CTA of the chest was obtained. Treatment and Re-Evaluation Narrative: On reevaluation, patient states she still feels short of breath. Patient was given a DuoNeb aerosol here. CTA of the chest is pending. Patient was turned over to overnight physician pending CTA results. Discharge Plan Triage Chief Complaint: Shortness of Breath ED Provider: Vinay Villa Dx/Rx/DC Orders Clinical Impression: Dyspnea Instructions: ED Dyspnea Prescriptions: No Action omeprazole 40 mg capsule,delayed release(DR/EC) 40 mg PO DAILY phenazopyridine [Pyridium] 200 MG tablet 200 mg PO TID Qty: 10 0RF sulfamethoxazole-trimethoprim [Bactrim DS] 800-160 mg tablet 1 tab PO BID 7 Days Qty: 14 0RF Primary Care Provider: Ian Mon Referrals: Ian Mon MD [Primary Care Provider] - What to do if you have Problems For any increased pain, shortness of breath, bleeding, nausea or vomiting, chestpain, or any unexpected problems, contact your Primary Care Provider. Call [facility] ([phone]) or report to the closest Emergency Room. Call 911 if necessary. 10/23/22 0055 <Electronically signed by Vinay Villa DO> Cosigner Signature (if applicable): CC: Dr. Ian Mon MD ~ Signed ADDENDUM by Christopher Johnson DO on 10/23/22 at 0333 Patient was signed out to me while awaiting results of her CTA. CTA revealed noacute PE or dissection but it did show changes consistent with multifocal pneumonia. This fits the patient's shortness of breath and cough. Her white count is elevated at 21 but she recently finished prednisone which most likely accounts for this significant elevation as her lactic acid is normal and she is afebrile. The patient was ambulated and her pulse ox did drop from 93% to 88%. Based on this I did talk to the patient possible admission to the hospital. Thepatient states that as long as she is not doing any strenuous that she does not feel short of breath and will prefer to treat this as an outpatient. The patient is awake alert and competent to make this decision and she understands return to the hospital symptoms fail to improve or worsen. Therefore this time we will start the patient on doxycycline secondary to the multifocal pneumonia with negative viral swab and as she wishes to return home and is not requiring supplemental oxygen at rest and there is no signs of PE she is safe for discharge 10/23/22 033<Electronically signed by Christopher Johnson DO> Cosigner Signature (if applicable): cc: Dr. Ian Mon MD ~* Signed [facility] Work Phone: 1(221) 606-440401-27-2023 Miscellaneous Notes* Telephone Encounter - Mallory Smith LPN - 10/15/2022 2:53 PM EST Patient notified.Mallory Smith LPN * Telephone Encounter - Martine Munroe PA-C - 10/15/2022 2:49 PM EST Note is in mychart. * Telephone Encounter - Meaghan Cook RN - 10/15/2022 1:29 PM EST Patient calling and states she was seen in [facility] yesterday for Viral URI. She states [...] with update. Thank you. documented in this encounterFayette [facility]01-26-[facility]23 History of Present illness Narrative* Martine Munroe PA-C - 10/14/2022 3:50 PM EST This note was created using [employer]. Subjective Arlet Navarro is a 37 year [...] 2 Puffs as instructed every 4 hours asneeded for wheezing/shortness of breath. 18 g 0 [...] ROUTINE Martine Munroe PA-C documented in this encounterFayette County [facility] Hospital01-25-2023 History of Present illness Narrative* Janine Tavarez MD - 10/13/2022 1:51 PM EST Arlet Navarro is a 37 year old female who presents for problem visit for pelvic pain . HPI: Patient has a remote history in 2011 of a laparoscopic hysterectomy with removal of right ovary. Patient states she has so much pain on her left that it makes it difficult when she is walking around a lot at work to continue working. She feels like her abdomen gets swollen. She feels like it is worse when her daughter is on her menstrual cycle. She is not currently sexually active. She denies any vaginal bleeding. She does have a remote history of abnormal Pap with cryotherapy before her hysterectomy. She states she has not had a Pap smear in many years. She denies any abnormal vaginal discharge itching or burning. She does state that she has a lot of GI issues and her primary care physician is working on this. She had a recent pelvic ultrasound that I reviewed. 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 naproxen sodium 220 mg cap Take 220 mg by mouth once daily. albuterol HFA (VENTOLIN HFA) 90 mcg/actuation inhaler Inhale 2 Puffs as instructed every 4 hours asneeded for wheezing/shortness of breath. melatonin 3 mg tablet Take 3 mg by mouth once daily. No current facility-administered medications for this visit. Allergies As of Date: 10/13/2022 Allergen Noted Reaction NORCO [HYDROCODONE-ACETAMINOPHEN] 06/15/2017 Hives and Swelling Fully Assessed 08/20/2022 Allergies and current medication updated:Yes EXAM: BP 110/62 Wt 168 lb (76.2kg) GENERAL: pleasant, female in no apparent distress HEENT: Normocephalic, atraumatic, mucus membranes moist, and no lesions ABDOMEN: soft, no masses, Moderate tenderness in LLQ, no radiating pain or referred pain. Pain to palpation of abdominal wall as well as deep palpation, rebound Absent, guarding Absent, pannus moderate, PELVIC: external genitalia normal, normal Bartholin's glands, urethra, [place]'s glands, no vulvar lesions, good vaginal support, physiologic discharge present, normal appearing perineal body and perianal region, cervix surgically absent, cuff is intact. No pain to palpation with Pap brush. Pap is collected. Some pain with palpation in left lower quadrant. Ovaries not definitively appreciated. Somesignificant pain over left levator. No pain over right levator. BIMANUAL: no adnexal masses, and uterus surgically absent ASSESSMENT AND PLAN: Pelvic pain, left lower quadrant. No significant ovarian pathology noted on ultrasound. Discussed with the patient that pain is often multifactorial. Agree with continuing to use NSAIDs as needed. Discussed with the patient I would not recommend surgical menopause as she may continue to have pain even after that. Recommend pelvic floor physical therapy. Recommend that she work with her primary care physician and possibly a GI physician to help get her bowels under control as that is likely contributing to her pain and bloating. Family history of breast cancer in a maternal aunt and also in her mother. She states her mother was diagnosed in her 30s and at age 41 from breast cancer and possibly ovarian cancer. Patient states her aunt has had breast cancer and genetic testing and is a carrier for breast cancer gene. I encouraged her to get a copy of those results and order genetic counseling for her. Patient is comfort able this plan. Continues to have pain I discussed with patient I would not operate on her but I would refer her [facility]. Medical Decision Making: Problems: Moderate: New problem with uncertain prognosis Data: Unique test result(s) reviewed: 1 Unique test(s) ordered: 1 Risk: Moderate: Moderate risk from testing/treatment Medical Decision Making Level: 4 - Moderate Janine Tavarez MD documented in this encounterFayette [facility]01-13-2023 Miscellaneous Notes* Telephone Encounter - Arlet Curry RN - 10/01/2022 12:22 PM EST Patient called back. Notified of results. Transferred to [facility] to schedule her follow up US. Efren KOVACS * Telephone Encounter - Maryjane Morris RN - 10/01/2022 11:39 AM EST Attempted to call patient. Unable to leave message-mailbox is full. Maryjane Morris RN * Telephone Encounter - Alyssa Cano APRN.CNP - 10/01/2022 11:24 AM EST Please let the pt know that the previous cyst has resolved and there is a new cyst. I would like her to repeat US in 8 weeks. Alyssa Cano APRN.ANALISA documented in this encounterFayette County [facility] Hospital01-12-2023 Miscellaneous Notes* Letter - Mammography Coordinator - 09/30/2022 3:41 PM EST September 30, 2022 PID: [id number] Arlet Navarro [address] [place] [address] Dear Ms. Navarro, We are pleased to inform you that the results of your recent breast imaging exam on 09/30/2022 are normal. Early detection of cancer is very important. We also understand recommendations regarding breast cancer screening are controversial. Please discuss with your primary care provider which strategy is best for you and whether a mammogram is right for you. Your imaging studies and report will be kept on file at [facility] as part of your permanent medical record and are available for your continuing care. Thank you for allowing us to help in meeting your health care needs. Sincerely, Dr. Green Interpreting Radiologist [facility] (Normal over 40) documented in this encounterFayette County Memorial Hospital01-11-2023 History of Present illness Narrative* Lianne Gary RDMS - 09/29/2022 1:45 PM EST Radiology Service Progress Note PATIENT NAME: Arlet Navarro DATE OF SERVICE: September 29, 2022 TIME: 3:23 PM PATIENT IDENTITY VERIFICATION COMPLETED USING TWO (2) IDENTIFIERS: Name and Date of confirmedby patient verbally. FALL SCREENING: Has the patient had 2 falls in the last year or 1 fall with injury or currently using an Ambulatory Assistive Device (Walker, Cane, Wheelchair, Crutches, etc.)? No PATIENT GENDER DATA: Female. status: : No status: NO. PATIENT RELEVANT IMPLANT DATA REVIEWED: Not Applicable RADIOLOGY DEPARTMENT: Ultrasound PERIPHERAL IV DATA: Not applicable SIGNED BY: Lianne Gary RDMS September 29, 2022 3:23 PM documented in this encounterFayette County [facility] Hospital01-02-2023 Miscellaneous Notes* Telephone Encounter - Billie Pritchard - 09/20/2022 11:32 AM ESTSummary: Refill Patient has been identified by name and date of : Yes Last office visit in this department: 08/04/2022 RX INSTRUCTIONS: Patient aware RX will be sent to pharmacy. No need to notify patient. Patient phones requesting refills as follows: Requested Prescriptions Pending Prescriptions Disp Refills omeprazole (PRILOSEC) 40 mg capsule 30 capsule 2 Sig: Take 1 capsule by mouth once daily. Please review and advise. Billie Pritchard documented in this encounterFayette County [facility] Hospital12-02-2022 Miscellaneous Notes* Addendum Note - Abe Calzada APRN.CNP - 08/20/2022 1:10 PM ESTAddended by: ABE CALZADA on: 08/20/2022 01:10 PM Modules accepted: Orders documented in this encounterFayette County [facility] Hospital12-02-2022 History of Present illness Narrative* Abe Calzada APRN.CNP - 08/20/2022 11:24 AM EST Subjective HPI HPI Arlet Navarro is a 37 year old female who presents today for CC of st, cough, congestion, diarrhea, fever. This started 6 days ago/improving. Has tried otc medication for relief. Symptoms are worsened by nothing. Risk factors sick exposures at home. Nonsmoker. Denies possibility of being . .Patient presents with: Sore Throat: Diarrhea, cough x 6 days PAST MEDICAL HISTORY Diagnosis Date Arthritis Kidney stones PAST SURGICAL HISTORY Procedure Laterality Date HYSTERECTOMY HX 2012 has left ovary LAP UMBILICAL HERNIA REPAIR ALLERGIES [place] [Hydrocodone-Acetaminophen] MEDICATIONS naproxen sodium 220 mg cap Take 220 mg by mouth once daily. albuterol HFA (VENTOLIN HFA) 90 mcg/actuation inhaler Inhale 2 Puffs as instructed every 4 hours asneeded for wheezing/shortness of breath. omeprazole (PRILOSEC) 40 mg capsule Take 1 capsule by mouth once daily. melatonin 3 mg tablet Take 3 mg by mouth once daily. FAMILY HISTORY Problem Relation Age of Onset [...] Drug use: No ROS Objective Blood pressure 110/66, pulse 75, temperature 36.3 C (97.4 F), resp. rate 21, weight 75.4 kg (166 lb3.2 oz), SpO2 98 %. Physical Exam Constitutional: General: She is not in acute distress. Appearance: She is not toxic-appearing or diaphoretic. HENT: Head: Normocephalic and atraumatic. Mouth/Throat: Lips: [place]. Mouth: Mucous membranes are moist. Pharynx: Uvula midline. Posterior oropharyngeal erythema present. No pharyngeal swelling, oropharyngeal exudate or uvula swelling. Cardiovascular: Rate and Rhythm: Normal rate and regular rhythm. Heart sounds: Normal heart sounds, S1 normal and S2 normal. Pulmonary: Effort: Pulmonary effort is normal. Breath sounds: Normal breath sounds. Lymphadenopathy: Cervical: Cervical adenopathy present. Right cervical: Superficial cervical adenopathy present. Left cervical: Superficial cervical adenopathy present. Neurological: Mental Status: She is alert and oriented to person, place, and time. Gait: Gait is intact. ASSESSMENT/PLAN: 1. Sore throat - ICD9: 462, ICD10: J02.9 (primary diagnosis) - suspect viral - Alere Strep Test neg, no culture pending - Discussed supportive care treatment with fluids, rest and analgesia. - The patient should follow up in 3-5 days if symptoms persist or worsen - ALERE STREP A TEST (AG) 2. URI, acute - ICD9: 465.9, ICD10: J06.9 - Discussed viral etiology and rationale for treatment. - Symptomatic treatment with prn analgesia - Supportive care with fluids and rest Agrees to plan Abe Calzada APRN.CNP documented in this encounterFayette [facility] Hospital11-28-2022 Miscellaneous Notes* Telephone Encounter - Maryjane Morris RN - 08/16/2022 8:45 AM EST Patient notified. She will call back to schedule. Maryjane Morris RN * Telephone Encounter - Alyssa Cano APRN.CNP - 08/16/2022 7:44 AM EST Please let the pt know that she does have a 4 cm simple cyst on the ovary. No need for any treatment at this time. Repeat US in 6-8 weeks. Alyssa Cano APRN.CNP documented in this encounterFayette County [facility] Hospital11-25-2022 History of Present illness Narrative* Vivian Gray MD - 08/13/2022 7:54 AM EST Arlet Navarro 1985 REFERRING PHYSICIAN: Tootie Mujica APRN.C* CHIEF COMPLAINT: Consult (Bleeding hemorrhoid) HPI: The patient is a 37 year old female presents with chronically intermittent bleeding external hemorrhoid. She denies history of thrombosis. She denies previous surgery. She denies chronic constipation. She denies straining with bowel movements, she denies prolonged sitting on toilet. PAST MEDICAL HISTORY Diagnosis Date Arthritis Kidney stones PAST SURGICAL HISTORY Procedure Laterality Date HYSTERECTOMY HX 2011 has left ovary LAP UMBILICAL HERNIA REPAIR Current Outpatient Medications Medication Sig albuterol HFA (VENTOLIN HFA) 90 mcg/actuation inhaler Inhale 2 Puffs as instructed every 4 hours asneeded for wheezing/shortness of breath. omeprazole (PRILOSEC) 40 mg capsule Take 1 capsule by mouth once daily. melatonin 3 mg tablet Take 3 mg by mouth once daily. naproxen sodium (ALEVE) 220 mg cap Take 220 mg by mouth once daily. ALLERGIES: [place] [Hydrocodone-Acetaminophen] PERSONAL HISTORY: Social History Tobacco Use Smoking status: Former Packs/day: 0.50 Years: 17.00 Pack years: 8.50 Types: Cigarettes Quit date: 10/07/2021 Years since quittin.8 Smokeless tobacco: Never Vaping Use Vaping Use: Never used Substance Use Topics Alcohol use: No Drug use: No FAMILY HISTORY Problem Relation Age of Onset Breast Cancer Mother Hypertension Mother Heart Mother other (ms) Mother Fibromyalgia Mother No Known Problems Father Diabetes Sister No Known Problems Brother other (MS) Maternal Grandmother Breast Cancer Maternal Grandmother Heart Maternal Grandmother other (hTN) Maternal Grandmother No Known Problems Maternal Grandfather No Known Problems Paternal Grandmother No Known Problems Paternal Grandfather REVIEW OF SYMPTOMS: The review of systems data was entered by the nurse and reviewed by me There are no exam notes on file for this visit. PHYSICAL EXAMINATION: General: The patient is 37 year old female, well nourished, well hydrated in no acute distress. Thepatient is oriented to time, place, and person. VITALS: Blood pressure 118/72, pulse 82, temperature 36.2 C (97.1 F), height 149.9 cm (4' 11), weight 76.3 kg (168 lb 3.2 oz), SpO2 97 %. Body mass index is 33.97 kg/m . Head: Normal cephalic, atraumatic Eyes: pupils are equally round, sclera are clear/anicteric Neck is supple with no tracheal deviation Respiratory: Normal respiratory excursion and pattern. Abdominal exam: benign Anal: perianal skin normal - anterior external hemorrhoidal tag, no open wound, no thrombosis or gangrene noted Extremities: no clubbing, cyanosis or edema. Neuro: non focal Psych: normal mood Assessment IMPRESSION: external hemorrhoid PLAN: I have discussed the above with the patient. I have offered external hemorrhoidectomy. I have explained the procedure to the patient. I have counseled the patient as to the risks of the procedure, including but not limited to: infection, bleeding, injury to any blood vessels/nerves, scar tissue, prolonged postoperative pain,wound infections, complications of anesthesia, etc. - the patient understands. I have especially explained to the patient that hemorrhoid surgery has prolonged postoperative paindue to location. The patient wishes to proceed. I have answered all questions to the patient s satisfaction and the patient has no further questions. I have confirmed and edited as necessary, the PFSH and ROS obtained by others. Consultation requested by Tootie Podlogандрей for an opinion regarding patient's hemorrhoid. My final recommendations will be communicated back to the requesting physician by way of shared Medical record or letter to requesting physician via US mail. . Diagnoses: (K64.9) Bleeding hemorrhoid Return to Clinic: The patient is instructed to follow-up with me if any worsening signs/symptoms Medical Decision Making: Problems: Low: Acute, uncomplicated illness or injury Medical Decision Making Level: 2 - Straightforward Vivian Gray MD documented in this encounterFayette [facility]11-23-2022 History of Present illness Narrative* Latha Yanez RDMS - 08/11/2022 10:00 AM EST Radiology Service Progress Note PATIENT NAME: Arlet Navarro DATE OF SERVICE: August 11, 2022 TIME: 11:14 AM PATIENT IDENTITY VERIFICATION COMPLETED USING TWO (2) IDENTIFIERS: Name and Date of confirmedby patient verbally. FALL SCREENING: Has the patient had 2 falls in the last year or 1 fall with injury or currently using an Ambulatory Assistive Device (Walker, Cane, Wheelchair, Crutches, etc.)? No PATIENT GENDER DATA: Female. status: : No status: NO. PATIENT RELEVANT IMPLANT DATA REVIEWED: Not Applicable RADIOLOGY DEPARTMENT: Ultrasound PERIPHERAL IV DATA: Not applicable SIGNED BY: Latha Yanez RDMS T August 11, 2022 11:14 AM documented in this encounterFayette County [facility] Hospital11-23-2022 History of Present illness Narrative* Swati Scott RT(R) - 08/11/2022 9:20 AM EST Radiology Service Progress Note PATIENT NAME: Arlet Navarro DATE OF SERVICE: August 11, 2022 TIME: 9:34 AM PATIENT IDENTITY VERIFICATION COMPLETED USING TWO (2) IDENTIFIERS: Name and Date of confirmedby patient verbally. FALL SCREENING: Has the patient had 2 falls in the last year or 1 fall with injury or currently using an Ambulatory Assistive Device (Walker, Cane, Wheelchair, Crutches, etc.)? No PATIENT GENDER DATA: Female. status: : No status: NO. PATIENT RELEVANT IMPLANT DATA REVIEWED: Yes RADIOLOGY DEPARTMENT: MR; Exam(s) Completed: Upper MSK: Wrist, right PERIPHERAL IV DATA: Not applicable SIGNED BY: RT Meli(R) August 11, 2022 9:34 AM documented in this encounterFayette County [facility] Hospital11-14-2022 History of Present illness Narrative* Alyssa Cano APRN.CARDIAC REHABILITATION PROGRAM DIRECTOR - 08/02/2022 3:21 PM EST Boathouse Keeper offered: Patient declines. Arlet is a 37 year old who presents for an annual gynecologic exam with complaints, leftside throbbing pain started about 1 month ago . Hemorrhoid that is bleeding Menses: hysterectomy left ovary remains. 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 No early satiety, indigestion, or increased flatulence. +bloating Bladder: +dysuria, urinary frequency, urinary urgency, incontinence. Breast: No breast lumps, nipple d/c, overlying skin changes, redness or skin retraction. Allergies and current medication updated:Yes EXAM: BP 110/76 Ht 4' 11.5 (1.51m) Wt 166 lb 6.4 oz (75.5kg) BMI 33.06 kg/(m^2). GENERAL: pleasant, female in no apparent distress HEENT: Normocephalic, atraumatic, and no lesions NECK: Supple, full range of motion, no adenopathy, and thyroid normal DERMATOLOGY: Normal, without lesions, non-icteric, and non-hirsute BREAST: soft, non-tender, symmetric, no dominant mass, normal nipple-areolar complex, no lymphadenopathy, and no nipple discharge +fibrocystic breast tissue CHEST: Normal inspiratory effort ABDOMEN: soft, non-tender, and no masses PELVIC: external genitalia normal, normal Bartholin's glands, urethra, [place]'s glands, no vulvar lesions, physiologic discharge present, normal appearing perineal body and perianal region, cervix surgically absent + non bleeding hemorrhoid BIMANUAL: no adnexal masses, uterus surgically absent, and Mild tenderness RECTOVAGINAL: deferred. NEURO: alert and oriented x3,exam grossly non-focal EXTREMITIES: normal ASSESSMENT/PLAN: 1) Health maintenance: Mammogram ordered. Nutrition, exercise and routine health maintenance exams reviewed. 2) Contraception: hysterectomy. Contraceptive options reviewed and information provided. 3) STD screening: Declined STD check. 4) Follow up one year or sooner as needed 5) Pelvic US for left side pain 6) recommended follow up with PCP regarding hemorrhoid. Alyssa Cano APRN.ANALISA documented in this encounterFayette [facility]11-14-2022 Miscellaneous Notes* Telephone Encounter - Jose Miguel Patel LPN - 08/02/2022 10:20 AM EST Mailbox is full, unable to leave message. MC sent to patient. Please leave open until patient reads. Jose Miguel Patel LPN * Telephone Encounter - Tootie Mujica APRN.CNP - 08/02/2022 8:56 AM EST Please call patient and let her know her white count is still mildly elevated but improved. Recommend recheck in 6 months to monitor. The rest of her blood work is normal. Tootie Mujica APRN.ANALISA documented in this encounterFayette County [facility] Hospital11-12-2022 History of Present illness Narrative* Cecilia Love MD - 07/31/2022 1:38 PM EST Patient presents with: Pain: (RT) arm pain rated 10, x4 days, reported moving furniture. HPI: Right arm pain: Duration: dropped a couch 4 days ago Location: medial right forearm distal to the elbow Character: throbbing Radiation: shoots up the arm with lifting Aggravating: lifting Relieving: rest Pain relievers: aleve, lidocaine cream Associated: bruising Pertinent negatives: Denies numbness, swelling MEDICATIONS: albuterol HFA (VENTOLIN HFA) 90 mcg/actuation inhaler Inhale 2 Puffs as instructed every 4 hours asneeded for wheezing/shortness of breath. omeprazole (PRILOSEC) 40 mg capsule Take 1 capsule by mouth once daily. melatonin 3 mg tablet Take 3 mg by mouth once daily. ALLERGIES: ALLERGIES Allergen Reactions [place] [Hydrocodone-* Hives, Swelling VITALS: BP 124/72 Pulse 90 Temp 36.6 C (97.9 F) Resp 18 Wt 75.3 kg (166 lb) SpO2 97% BMI 35.92 kg/m PE: Pleasant, in no acute distress. ARM: right. Full ROM at elbow and wrist. Pain with flexion/pronation against resistance. Tender distal to the medial epicondyle along the medial aspect of the forearm. No bony tenderness over the olecranon, medial epicondyle, or lateral epicondyle. ASSESSMENT/PLAN: 1. Forearm strain, right, initial encounter - ICD9: 841.9, ICD10: S56.911A Flexor muscle strain. Continue aleve and lidocaine as needed. Provided sling for comfort. She plans to follow up with her orthopedist. Cecilia Love MD documented in this encounterFayette County [facility] Hospital11-09-2022 History of Present illness Narrative* Tootie Mujica APRN.[facility] - 07/28/2022 11:19 AM EST 07/28/2022 Patient presents with: Follow Up: Go over lab work, wrist pain(MRI scheduled for ), having muscle spasms in toes sincehaving therapy to heal spurs SUBJECTIVE: This is a 37 year old that is here today for Above Complaints. Completed blood work in June she would like to review. Reports she is having an MRI of her right wrist later this month ordered by Dr. Bryant. Has been doing home exercises for heel spurs as recommended by Dr. Bruno. Reports has been having muscle spasms since starting. PAST MEDICAL HISTORY Diagnosis Date Arthritis Kidney stones ALLERGIES [place] [Hydrocodone-Acetaminophen] MEDICATIONS Current Outpatient Medications Medication Sig albuterol HFA (VENTOLIN HFA) 90 mcg/actuation inhaler Inhale 2 Puffs as instructed every 4 hours asneeded for wheezing/shortness of breath. omeprazole (PRILOSEC) 40 mg capsule Take 1 capsule by mouth once daily. melatonin 3 mg [...] and negative other than HPI. OBJECTIVE: BP 118/74 Pulse 72 Resp 18 Wt 75 kg (165 lb 6.4 oz) SpO2 98% BMI 35.79 kg/m . Vital signsreviewed by this provider. APPEARANCE Well appearing, alert, in no acute distress, well-hydrated, well nourished. EYES conjunctiva and sclera normal. HEART RRR with normal S1 and S2, no murmurs, no gallops, no JVD appreciated LUNG clear to auscultation. No wheezes, rhonchi, or rales SKIN Skin color, texture, turgor normal, no suspicious rashes or lesions to exposed skin Component Latest Ref Rng & Units 06/23/2022 RBC 3.90 - 5.20 m/uL 5.15 Hemoglobin 11.5 - 15.5 g/dL 14.9 Hematocrit 36.0 - 46.0 % 45.3 MCV 80.0 - 100.0 fL 88.0 MCH 26.0 - 34.0 pg 28.9 MCHC 30.5 - 36.0 g/dL 32.9 RDW-CV 11.5 - 15.0 % 12.2 Platelet Count 150 - 400 k/uL 272 MPV 9.0 - 12.7 fL 11.2 Neut% % 63.5 Abs Neut (ANC) 1.45 - 7.50 k/uL 10.52 (H) Lymph% % 24.1 Abs Lymph 1.00 - 4.00 k/uL 3.99 [place]% % 6.0 Abs [place] <0.87 k/uL 1.00 (H) Eosin% % 5.6 Abs Eosin <0.46 k/uL 0.92 (H) Baso% % 0.5 Abs Baso <0.11 k/uL 0.09 Immature Gran % % 0.3 IMMATURE GRANS (ABS) <0.10 k/uL 0.05 NRBC /100 WBC 0.0 Absolute nRBC <0.01 k/uL <0.01 DTYPE Auto Protein, Total 6.3 - 8.0 g/dL 6.9 Albumin 3.9 - 4.9 g/dL 4.1 Calcium 8.5 - 10.2 mg/dL 9.2 Bilirubin, Total 0.2 - 1.3 mg/dL 0.5 Alkaline Phosphatase 34 - 123 U/L 47 AST 13 - 35 U/L 36 (H) ALT 7 - 38 U/L 43 (H) Glucose 74 - 99 mg/dL 70 (L) BUN 7 - 21 mg/dL 12 Creatinine 0.58 - 0.96 mg/dL 0.61 Sodium 136 - 144 mmol/L 140 Potassium 3.7 - 5.1 mmol/L 4.2 Chloride 97 - 105 mmol/L 105 CO2 22 - 30 mmol/L 25 Anion Gap 9 - 18 mmol/L 10 eGFR >=60 mL/min/1.73m 119 HEPATITIS B(1 of 3 - 3-dose series) Never done HEPATITIS C SCREENING Never done HIV SCREENING Never done DTAP,TDAP,TD(1 - Tdap) Never done HPV TESTING Never done DEPRESSION ASSESSMENT Never done PAP TESTING due on 06/30/2022 INFLUENZA Completed COVID-19 VACCINE Completed ASSESSMENT/PLAN: 1. Leukocytosis, unspecified type - ICD9: 288.60, ICD10: D72.829 (primary diagnosis) - repeat blood work today 2. Encounter for immunization - ICD9: V03.89, ICD10: Z23 - INFLUENZA VACCINE QUADRIVALENT 6 MO - 64 YRS IM - Prefundia-BIONTJambo COVID-19 BIVALENT BOOSTER VACCINE, AGE 12+ YR 3. Muscle spasm - ICD9: 728.85, ICD10: M62.838 - would recommend she follow-up with podiatry Tootie Mujica APRN.CNP Prescription instructions reviewed with patient as applicable. Patient advised if symptoms do not improve or if symptoms worsen sooner, to contact their primary care physician. Potential red flag symptoms discussed with the patient. Reviewed appropriate action plan to take if red flag symptoms occur. Patient agreeable to treatment plan. I spent a total of 20 minutes on the date of the service which included preparing to see the patient, [id number] patient care, completing clinical documentation, obtaining and/or reviewing separately obtained history, performing a medically appropriate examination, and counseling and educating the patient/family/caregiver. documented in this encounterCleveland [id number] Miscellaneous Notes* Telephone Encounter - Miley Gutierrez Ma - 07/16/2022 8:49 AM EDT I called and spoke with patient. Message from Dr. Bryant given. Patient would like to proceed with getting the MRI. She was transferred to [facility]. * Telephone Encounter - Miley Arzate Brenda Arana - 07/16/2022 8:26 AM EDT Images from the original note were not included. Jose Bryant MD [facility] Orthopaedic Pool Can we call Arlet and let her know that I followed up with radiology about her wrist xray. One doc said to just follow up with a regular xray in 4-6 months, and the other said it wouldn't be unreasonable to get an MRI of the wrist. I did put an order in for an MRI. She can get that scheduled, orfollow up in 4-6 months for repeat xrays and a check up. BP documented in this [facility]10-06-2022 Miscellaneous Notes* Telephone Encounter - Shaniqua Beckford MD - 06/24/2022 11:23 AM EDT Will notify patient after review. * Telephone Encounter - Chantale Lopez RN - 06/24/2022 9:45 AM EDT Patient calls and is asking about her lab results. Patient noticed that there are abnormal values. Please review and advise, Chantale Lopez RN documented in this [facility]10-05-2022 Instructions* Patient Instructions* Tootie Mujica APRN.ANALISA - 06/23/2022 2:33 PM EDT BRAT DIET (may eat any of the following as tolerated) Bananas Applesauce [place] Saltine Crackers Animal Crackers Pretzels Oatmeal Unsweetened Dry Cereal (Rice Krispies, Cheerios) Plain Baked or Boiled Potato Plain White Rice Plain Noodles All clear liquid listed below CLEAR LIQUID DIET (need to drink 2 ounces total every half hour) Broth Jello Popsicles Pedialyte Gatorade NO Juices NO Milk NO Dairy Products Call if urine output is decreased or she develops dry mucous membranes, or lethargy. documented in this encounterFayette County [facility] Hospital10-05-2022 History of Present illness Narrative* Tootie Mujica APRN.CNP - 06/23/2022 2:12 PM EDT CBC with 06/23/2022 Patient presents with: Cough: With SOB x6 days Diarrhea: X6 days SUBJECTIVE: This is a 37 year old that is here today for Above Complaints. Tuesday started with cough and SOB with exertion. Seen in ER and CXR completed which was normal. Cough can be productive of green sputum. Cough and SOB improving. Also admits to runny nose, headaches,muscle aches and diarrhea. Taking OTC pepto, aleve and generic mucinex. Denies fevers, chills, nasal congestion, dyspnea, orthopnea, wheezing, loss or taste or smell, nausea or vomiting. She does notuse tobacco anymore however she lives with her father who smokes. Diarrhea: Described as watery and can be up to 10 times a day. No aggravating features. Reports tight feeling in her lower abdomen.Tight feeling relieved with bowel movements. No recent use of antibiotics, traveling or sick contacts with diarrhea. Available ER records reviewed PAST MEDICAL HISTORY Diagnosis Date Arthritis Kidney stones ALLERGIES [place] [Hydrocodone-Acetaminophen] MEDICATIONS Current Outpatient Medications Medication Sig meloxicam (MOBIC) 15 mg tablet Take 1 tablet by mouth once daily. ondansetron orally disintegrating (ZOFRAN ODT) 4 mg disintegrating tablet Take 1 tablet by mouth every 6 hours as needed for nausea/vomiting. (Patient not taking: Reported on 04/19/2022 ) omeprazole (PRILOSEC) 40 mg capsule Take 1 capsule by mouth once daily. melatonin 3 mg tablet Take 3 mg by mouth once daily. No current facility-administered medications for this visit. Medications and allergies reviewed by this provider. SOCIAL HISTORY Social History Tobacco Use Smoking status: Former Packs/day: 0.50 Years: 17.00 Pack years: 8.50 Types: Cigarettes Quit date: 10/07/2021 Years since quittin.7 Smokeless tobacco: Never Vaping Use Vaping Use: Never used Substance Use Topics Alcohol use: No Drug use: No REVIEW OF SYSTEMS All other reviewed and negative other than HPI. OBJECTIVE: BP 106/62 Pulse 94 Temp 36.9 C (98.5 F) Resp 20 Wt 72.8 kg (160 lb 9.6 oz) SpO2 95% BMI34.75 kg/m . Vital signs reviewed by this provider. APPEARANCE Well appearing, alert, in no acute distress, well-hydrated, well nourished. EYES conjunctiva and sclera normal. EARS External ears normal, canals clear HEART RRR with normal S1 and S2, no murmurs, no gallops, no JVD appreciated LUNG expiratory wheezing anterior lung field, posterior lung field. No rhonchi or rales. Able to speak in full sentences without difficulty ABDOMEN bowel sounds normoactive, no bruits, soft, non-tender, non-distended, without organomegaly or palpable masses EXTREMITIES Extremities normal, No deformities, No skin discoloration, and No edema SKIN Skin color, texture, turgor normal, no suspicious rashes or lesions to exposed skin HEPATITIS B(1 of 3 - 3-dose series) Never done HEPATITIS C SCREENING Never done HIV SCREENING Never done DTAP,TDAP,TD(1 - Tdap) Never done HPV TESTING Never done DEPRESSION ASSESSMENT Never done COVID-19 VACCINE(3 - Booster for Pfizer series) due on 09/24/2021 INFLUENZA(1) Never done PAP TESTING due on 06/30/2022 ASSESSMENT/PLAN: 1. Diarrhea, unspecified type - ICD9: 787.91, ICD10: R19.7 (primary diagnosis) - no red flag symptoms or exam findings - red flag symptoms or exam findings - C. DIFFICILE PCR - ENTERIC BACTERIAL PANEL BY PCR - CRYPTOSPORIDIUM AND GIARDIA ANTIGENS BY EIA - CBC + DIFF - COMP METABOLIC PANEL - BRAT diet and may use imodium OTC. Increase fiber in diet - follow-up if symptoms fail to improve, to ER with red flag symptoms 2. Wheezing - ICD9: 786.07, ICD10: R06.2 - no red flag symptoms or exam findings - red flag symptoms discussed, verbalizes understanding - ALBUTEROL SULFATE HFA 90 MCG/ACTUATION AEROSOL INHALER - PREDNISONE 50 MG TABLET - GUAIFENESIN ER 600 MG TABLET, EXTENDED RELEASE 12 HR - follow-up if symptoms fail to improve, to ER with red flag symptoms 3. Upper respiratory tract infection, unspecified type - ICD9: 465.9, ICD10: J06.9 - plan as in #2 Tootie Mujica APRN.CNP Prescription instructions reviewed with patient as applicable. Patient advised if symptoms do not improve or if symptoms worsen sooner, to contact their primary care physician. Potential red flag symptoms discussed with the patient. Reviewed appropriate action plan to take if red flag symptoms occur. Patient agreeable to treatment plan. I spent a total of 30 minutes on the date of the service which included preparing to see the patient, [id number] patient care, completing clinical documentation, obtaining and/or reviewing separately obtained history, performing a medically appropriate examination, counseling and educating the pat ient/family/caregiver, and ordering medications, tests, or procedures. documented in this encounterFayette County [facility] Hospital10-01-2022 History of Present illness Narrative* Lia Reyes APRN.CNP - 06/19/2022 2:23 PM EDT Triage Note: SOHEILA Arlet Navarro is a 37 year old female who presents today for CC of shortness of breath. She states she has been ill for 24 hours, has been using albuterol inhaler frequently, but is still having severe wheezing and can't catch breath. She is tachypnic, and audibly wheezing. HR 105, oxygen 95-98. There were no vitals taken for this visit. Social History Tobacco Use Smoking status: Former Packs/day: 0.50 Years: 17.00 Pack years: 8.50 Types: Cigarettes Quit date: 10/07/2021 Years since quittin.6 Smokeless tobacco: Never Vaping Use Vaping Use: Never used Substance Use Topics Alcohol use: No Drug use: No PAST MEDICAL HISTORY Diagnosis Date Arthritis Kidney stones I have confirmed and edited as necessary, the [facility] ASSESSMENT/PLAN: 1. SOB (shortness of breath) - ICD9: 786.05, ICD10: R06.02 Appears to be asthma attack - exhausted rescue inhaler Due to nature of patient's complaint and lack of investigative tools available at [facility], recommend patient be seen at nearest ED for further invasive treatment. Patient's son with her will take her to [facility] ED. Diagnosis and treatment plan were discussed and questions were answered to the patient's satisfaction. Pt acknowledged understanding of concepts and follow up plan. Specific signs and symptoms that would indicate the need for higher level of care were discussed indetail warranting prompt ER evaluation. Lia Reyes APRN.ANALISA documented in this encounterFayette County [facility] Hospital09-29-2022 History of Present illness Narrative* Ana Zuniga RN - 06/17/2022 3:56 PM EDT PT ASSESSMENT - CASTING ROOM Arlet presents for Application of brace. Applied size small Actimove support to Right hand. Patient has been instructed in Care and proper application of brace.. Ana Zuniga RN * Jose Bryant MD - 06/17/2022 3:02 PM EDT Jose Bryant MD Department of Orthopaedics Orthopaedics [address] [facility] [address] Dept: [phone] Dept June 17, 2022 Consultation requested by Abe Calzada CNP for an opinion regarding right wrist pain. My final recommendations will be communicated back to the requesting physician by way of shared Medical record or letter to requesting physician via US mail. CHIEF COMPLAINT: New of the Right Wrist and Sclerotic lesion right wrist (Referred by Abe Calzada) HPI Patient states she has had pain in her right wrist for about 1 year. 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 States when she uses her hands for a long periodof time her right hand will turn blue in color. Patient had X-rays done on 06/07/22 and EMG on 02/20/21. Patient also has a mass on her forearm. Taking Aleve for the pain and gives no relief. Patient isright hand dominant. 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 Intake information documented in the prior visit with Abe Calzada on 06/07/2022. AMB ROOMING INTAKE FLOWSHEET DATA Pain Pain Level: 8 Pain Location: Wrist-Right Description: Throbbing Duration Amount of Time: 1 Duration Units: Years Frequency: Continuous Intervention/Comfort measure: Medication ASSESSMENT: M18.11 Primary osteoarthritis of first carpometacarpal joint of right hand (primary encounter diagnosis) M25.531 Right wrist pain PLAN: Slightly diffuse discomfort. Some of it does focally appear at her CMC joint. I am not able to visualize any color or temperature changes. Normal nerve test as well as her physical exam findings. However, there is a sclerotic lesion in the distal radius. I will touch base with some of my radiology colleagues to see if that needs to be looked at any further. FOLLOW UP INSTRUCTIONS: Possible MRI. Ms. Arlet Navarro was advised as to [...] x 3, good mood and affect. Musculoskeletal: No obvious swelling. Mild tenderness at the CMC joint and some discomfort but no crepitance with grind testing. Mild discomfort over the radial carpal joint but a negative Perales's exam for pain or instability. Negative Tinel's, negative median nerve compression test at the wrist. IMAGING: Electrodiagnostic examination of the right upper limb, with additional nerve conduction studies of the left upper limb, reveals: 1. No definite evidence of right or left median neuropathy at or distal to the wrist (ie: carpal tunnel syndrome). 2. No definite evidence of a right cervical (including C5-T1) motor radiculopathy, although an intraspinal canal lesion affecting only sensory nerve root fibers cannot be excluded based on this study. IMPRESSION: No acute radiographic abnormalities seen in the right wrist. Surveying Crew Stake Runner: JIM Transcribe Date/Time: Jun 07 2022 3:33P Dictated by : PAIGE LEMON MD This examination was interpreted and the report reviewed and electronically signed by: PAIGE LEMON MD on Jun 07 2022 3:36PM EST Results-Findings * * *Final Report* * * DATE OF EXAM: Jun 07 2022 3:30PM WOX [id number] - XR WRIST 3V PA/LAT/OBL RT / PROCEDURE REASON: Wrist injuries, right, initial encounter * * * * Physician Interpretation * * * * EXAM TITLE: XR WRIST 3V PA/LAT/OBL RT EXAM DATE/TIME: 06/07/2022 3:30 PM COMPARISON: None. CLINICAL INDICATION/HISTORY: Injury. TECHNIQUE: PA, lateral, and lateral views of right wrist are presented. FINDINGS: No acute fractures or subluxations are noted. There is a 9 mm area sclerotic lesion or opacity in the distal radius with uncertain etiology; however it does not seem to be representing acute fracture. The joint spaces are well preserved. The mineralization of the bones is normal. There is no significant soft tissue swelling. Supporting Subjective Information Below: Past Medical History: PAST MEDICAL HISTORY Diagnosis Date Arthritis Kidney stones Past Surgical History: PAST SURGICAL HISTORY Procedure Laterality Date HYSTERECTOMY HX 2011 has left ovary LAP UMBILICAL HERNIA REPAIR Family History: FAMILY HISTORY Problem Relation Age of Onset Breast Cancer Mother Hypertension Mother Heart Mother other (ms) Mother Fibromyalgia Mother No Known Problems Father Diabetes Sister No Known Problems Brother other (MS) Maternal Grandmother Breast Cancer Maternal Grandmother Heart Maternal Grandmother other (hTN) Maternal Grandmother No Known Problems Maternal Grandfather No Known Problems Paternal Grandmother No Known Problems Paternal Grandfather Social History: Social History Tobacco Use Smoking status: Former Packs/day: 0.50 Years: 17.00 Pack years: 8.50 Types: Cigarettes Quit date: 10/07/2021 Years since quittin.6 Smokeless tobacco: Never Vaping Use Vaping Use: Never used Substance Use Topics Alcohol use: No Drug use: No Medications: Current Outpatient Medications Medication Sig omeprazole (PRILOSEC) 40 mg capsule Take 1 capsule by mouth once daily. melatonin 3 mg tablet Take 3 mg by mouth once daily. naproxen sodium (ALEVE) 220 mg tablet Take 220 mg by mouth twice daily with meals. ondansetron orally disintegrating (ZOFRAN ODT) 4 mg disintegrating tablet Take 1 tablet by mouth every 6 hours as needed for nausea/vomiting. (Patient not taking: Reported on 04/19/2022 ) No current facility-administered medications for this visit. Allergies: [place] [Hydrocodone-Acetaminophen] ROS: General (negative for fatigue, malaise, weight loss/gain) HEENT (negative for headache, earache, recent vision changes, sinus pain, sore throat) Respiratory (no recent shortness of breath, hemoptysis) CV (negative for chest tightness, palpitations) Musculoskeletal (see HPI) Psych (no depression, anxiety) REFERRING PHYSICIAN: Ms. Arlet Navarro was referred to [facility] for consultation by the following physician. This consultation note will be sent to the following physician by either mail or electronicmedical record. Abe Calzada [address] [facility] [address] Shaniqua Beckford MD [address] [facility] [address] Jose Bryant MD documented in this encounterFayette County Memorial Hospital09-19-2022 History of Present illness Narrative* Abe Calzada APRN.CARDIAC REHABILITATION PROGRAM DIRECTOR - 06/07/2022 3:32 PM EDT Images from the original note were not included. Subjective HPI HPI Arlet Navarro is a 37 year old female who presents today for CC of right wrist pain after hitting desk. This started few hours ago. Has tried nothing for relief. Symptoms are worsened by romof wrist. Denies numbness/tingling of right arm. Denies possibility of being . .Patient presents with: Wrist/forearm Injury: R wrist injury x today PAST MEDICAL HISTORY Diagnosis Date Arthritis Kidney stones PAST SURGICAL HISTORY Procedure Laterality Date HYSTERECTOMY HX 2011 has left ovary LAP UMBILICAL HERNIA REPAIR ALLERGIES [place] [Hydrocodone-Acetaminophen] MEDICATIONS omeprazole (PRILOSEC) 40 mg capsule Take 1 capsule by mouth once daily. melatonin 3 mg tablet Take 3 mg by mouth once daily. benzonatate (TESSALON PERLES) 100 mg capsule Take 1 capsule by mouth three times daily as needed for cough. (Patient not taking: Reported on 04/19/2022 ) ondansetron orally disintegrating (ZOFRAN ODT) 4 mg disintegrating tablet Take 1 tablet by mouth every 6 hours as needed for nausea/vomiting. (Patient not taking: Reported on 04/19/2022 ) FAMILY HISTORY Problem Relation Age of Onset [...] 10/07/2021 Years since quittin.6 Smokeless tobacco: Never Substance Use Topics Alcohol use: No Drug use: No ROS Objective Blood pressure 110/70, pulse 94, temperature 36.8 C (98.3 F), resp. rate 18, weight 75.8 kg (167 lb), SpO2 97 %. Physical Exam Constitutional: General: She is not in acute distress. Appearance: She is not toxic-appearing or diaphoretic. HENT: Head: Normocephalic and atraumatic. Pulmonary: Effort: Pulmonary effort is normal. No accessory muscle usage or respiratory distress. Musculoskeletal: Arms: Neurological: Mental Status: She is alert and oriented to person, place, and time. ASSESSMENT/PLAN: 1. Wrist injuries, right, initial encounter - ICD9: 959.3, ICD10: S69.91XA (primary diagnosis) -no bony abnormality noted on xray -splint supplied -Rest, Ice, Compression, Elevation discussed -discussed use of ibuprofen -follow up with primary care if symptoms persist/worsen in 10-14 days - XR WRIST GENERAL 3V PA/LAT/OBL RIGHT IMPRESSION: No acute radiographic abnormalities seen in the right wrist. Dictated by : PAIGE LEMON MD 2. Abnormal x-ray - ICD9: 793.99, ICD10: R93.89 Will refer to ortho to investigate sclerotic lesion noted on xray Agrees to plan Abe Calzada APRN.CNP documented in this encounterFayette County [facility] Hospital09-19-2022 History of Present illness Narrative* Nikky Henderson RT(R) - 06/07/2022 3:30 PM EDT Radiology Service Progress Note PATIENT NAME: Arlet Navarro DATE OF SERVICE: June 07, 2022 TIME: 3:24 PM PATIENT IDENTITY VERIFICATION COMPLETED USING TWO (2) IDENTIFIERS: Name and Date of confirmedby patient verbally. FALL SCREENING: Has the patient had 2 falls in the last year or 1 fall with injury or currently using an Ambulatory Assistive Device (Walker, Cane, Wheelchair, Crutches, etc.)? No PATIENT GENDER DATA: Female. status: : No status: NO. PATIENT RELEVANT IMPLANT DATA REVIEWED: Yes RADIOLOGY DEPARTMENT: General X-ray: Exam(s) Completed: Upper Extremity X- Ray(s): Wrist, right PERIPHERAL IV DATA: Not applicable SIGNED BY: RT Nasra(R) June 07, 2022 3:24 PM documented in this encounterF[facility]-25-[facility]22 Instructions* Patient Instructions* Jero Bruno - 05/13/2022 3:45 PM EDT Images from the original note were not included. What is Plantar Fasciitis? Plantar fasciitis is the most common cause of heel pain. The pain is caused by inflammation of the plantar fascia. If you strain your plantar fascia, it becomes weak, swollen and irritated (inflamed). The resulting pain may be isolated in the heel or may appear at different points on the bottom of the foot, from time to time; it may occur in one foot or both. Some think that plantar fasciitis pain is caused by irritation of nerves from tissue swelling or inflammation, but it is debatable. Plantar fasciitis is common in middle-aged people; it also occurs in younger people who are on their feeta lot, such as athletes or soldiers. The plantar fascia is a strong band of connective tissue that extends from the base of the toes, along the bottom of the foot, to the bottom of the heel (calcaneous bone); it acts like a bowstring tomaintain the arch of the foot. What are heel spurs? The inflammatory reaction of the heel bone may produce spike-like projections of new bone, called heel spurs. The spurs sometimes show on X-rays. They neither cause the initial pain nor do they causethe initial problem. However, later, having to walk on spurs may cause sharp pain. What causes plantar fasciitis? Plantar fasciitis is caused by straining the ligament that supports your arch. Repeated strain can cause tiny tears in the ligament. These lead to pain and swelling. During walking, the plantar fascia experiences tension up to twice the body weight with each step. While this is normal, those who spend much time on their feet, such as nurses, manager clinic/waiters, andmail carriers, often experience plantar fasciitis. Athletes involved in tennis or other racquet sports, race walking, jogging or running also show a higher incidence of plantar fasciitis than do those participating in other activities. Thus, it's clear that plantar fasciitis is predominantly an overuse injury. In fact, any activity that results in prolonged tension and stress on the plantar fascia may cause plantar fasciitis. It is possible that changes in footwear may play a role in causing plantar fasciitis, no matter what activity is occurring. Those who are overweight are prone to plantarfasciitis. This is true even for sedentary people who get little physical activity. Abnormalities of the foot and ankle joints may predispose some individuals to development of plantar fasciitis (spec ifically, over pronation of the subtalar joint). Contributing Factors * Flat feet * Toe running, hill running * Sudden weight increase * High-arched, rigid feet * Soft terrain, e.g. running on sand * Obesity * Pronated feet (rolled inward) * Sudden increase in activity* Family tendency * Poor shoe support * Worn out or poorly fitted shoes * Increasing age * Walking,standing or running for long periods of time, especially on hard surfaces. How is the Injury Treated? Rest Your Feet: Limit, or if possible, stop activities that are causing your heel pain. Try to avoid running or walking on hard surfaces, such as concrete. Use pain as your guide. If your foot is toopainful, rest it. Ice: Ice the sore area for 30 to 60 minutes, several times a day, to reduce inflammation and relieve pain. Apply a plastic bag of crushed ice (or a bag of frozen peas) over a towel. Ice the sore areafor 15 minutes after activity/exercise. Application of heat is not generally recommended, as heat ex pands the bone and connective tissue, perhaps exerting greater pressure on nerves and thereby increasing pain. If heat is used, follow it with ice. Medication: If your condition developed recently, anti-inflammatory/analgesic medication, combined with heel pads (see below) may be all that is necessary to relieve pain and to reduce inflammation. If no pain relief has occurred after 2- 3 weeks, however, your doctor may inject either cortisone or local anesthetic directly into the tender area. Exercises: Do simple exercises, such as calf stretches and towel stretches (see below) several times a day, especially when you first get up in the morning. These can help your ligament become more flexible and strengthen the muscles that support your arch. Shoes: Poorly fitting shoes can cause plantar fasciitis. The best type of shoe to wear is a good walking or running shoe with good shock absorption and excellent arch support. You should choose the one that fits the best. [place] with your athletic shoes to find a pair that is comfortable and causes fewer symptoms. Put your shoes on as soon as you get out of bed; going barefoot or wearing slippers may make your pain worse. Good brands include (but are not limited to): New Balance, Asics, Saucony, SAS and Merrel s. Taping: Your doctor may tape your foot to maintain the arch. This takes some of the tension off theplantar fascia. Weight Loss: If your weight is putting extra stress on your feet, your doctor may encourage you to try a weight-loss program. Orthotics: An orthotic insole is a molded piece of rubber, plastic, or other material that you insert into your shoe. It corrects the alignment of your foot and cushions your foot from excessive pounding. These may be prescription or non-prescription. Prescription orthotics are custom-fitted and may fit better and control pain better, but are very expensive. Night Splints: A night splint holds the foot with the toes pointed up and the ankle at a 90-degree angle. This position applies a constant, gentle stretch to the plantar fascia. Corticosteroid Shots: Steroids may be injected into the tender area to reduce inflammation. REHAB Exercises to stretch the plantar fascia, the calf muscles, and the Achilles tendon. Tightness of the muscles of the calves may contribute to plantar fasciitis, so stretching the calf muscles is important to rehabilitation, as is stretching of the plantar fascia itself. Plantar fascial stretches Assisted Dorsiflexion/Plantar Fascia Stretch: Sit on the floor or ground, barefoot, with both legs outstretched. Use a towel or elastic band and wrap it around the ball (and not the toes) of the affected foot. Use the towel or elastic band to provide resistance to upward movement of the forefoot. Pull foot upward (toward your body) with the help of the elastic band or towel, and then return to the starting position. Ten repetitions are recommended. Perform the sequence at least three times a day. Alternate Plantar Fascia Stretch: Sit upright in a chair, barefoot. Place the ankle of the affectedfoot on your opposite knee. Using the same hand as the affected foot, reach across and grab the toes. Flex the ankle toward and pull the toes toward the romo. To test the stretch, place the thumb of your hand on the bottom of the foot. You should be able to feel the cord-like plantar fascia, running the length of the foot. Hold the stretch for a count of 10, then relax. Repeat 10 times. Do the sequence at least three times a day. Achilles/Calf Stretches Strengthening the muscles of the calves may contribute to successful rehabilitation of plantar fasciitis, as well as prevent reoccurrence. The exercises below will help strengthen the calf muscles. Calf and Achilles Tendon Stretch (Gastrocnemius Stretch): Face a wall, standing an arm's length away. Place one foot back. Place both hands on the wall. Bend the elbows and knee of your forward leg, keeping the heel of the backward foot on the floor and keeping your body straight (aligned), until your forehead nearly touches the wall, or until significant stretch is felt in the muscles of the calf of the backward leg. Hold this position for 10 to 15 seconds. Extend elbows (straighten your arms and stand upright again) and maintain this position for 10 seconds. Repeat this cycle 15 to 20 times. Switch legs and repeat the exercise. Powerstep Original Full length. Can purchase at [employer] here in [place], [employer] in [place] or [place]. Also can find in [place] in [facility]. Powersteps can also be purchased online, starting around $25.00 If you have a metatarsal or dancer pad for your feet apply the pad directly to the insole so you can interchange between your shoes. Find a shoe with a removable insole and take this out and replace with your powerstep insole. Always bring powersteps with you when shopping for shoes so that you can make sure that everything fits well together documented in this encounterF[facility]08-25-2022 History of Present illness Narrative* Jero Bruno - 05/13/2022 3:39 PM EDT Images from the original note were not included. Consultation requested by Dr. Reyes for an opinion regarding left heel pain. My final recommendations will be communicated back to the requesting physician by way of shared Medical record or letter torequesting physician via US mail. Initial Podiatric Office Visit: Chief Complaint: This 37 year old female who presents with chief complaint:left heel pain HPI Patient presents to clinic for evaluation of left foot Complains of left heel pain x 1.5 months. She states the heel pain hurts her the most in the morning after periods of rest. She went to urgent care and was given order for prednisone. She has yet to start. She states the pain is 10/10. Patient does take alleve which does provide some relief. PAIN EVALUATION 05/13/2022 1521 Pain Level: 10 Pain Location: Heel-Left Description: Throbbing;Stabbing Duration Amount of Time: 1 Duration Units: Months Frequency: Continuous Intervention/Comfort measure: Reposition;Relaxation;Other: See comment OTC Dr. Quintero's insert No results found for: HBA1C PCP: Shaniqua Beckford MD PAST MEDICAL HISTORY Diagnosis Date Arthritis Kidney stones Current Outpatient Medications Medication Sig omeprazole (PRILOSEC) 40 mg capsule Take 1 capsule by mouth once daily. melatonin 3 mg tablet Take 3 mg by mouth once daily. benzonatate (TESSALON PERLES) 100 mg capsule Take 1 capsule by mouth three times daily as needed for cough. (Patient not taking: Reported on 04/19/2022 ) ondansetron orally disintegrating (ZOFRAN ODT) 4 mg disintegrating tablet Take 1 tablet by mouth every 6 hours as needed for nausea/vomiting. (Patient not taking: Reported on 04/19/2022 ) No current facility-administered medications for this visit. ALLERGIES Allergen Reactions [place] [Hydrocodone-* Hives, Swelling PAST SURGICAL HISTORY Procedure Laterality Date HYSTERECTOMY [...] Types: Cigarettes Quit date: 10/07/2021 Years since quittin.5 Smokeless tobacco: Never Substance Use Topics Alcohol use: No Drug use: No REVIEW OF SYSTEMS GENERAL: Negative for Malaise, significant weight loss, fever RESPIRATORY: Negative for cough, wheezing and shortness of breath CARDIOVASCULAR: Negative for chest pain, leg swelling and palpitations GI: Negative for abdominal discomfort, blood in stools or black stools and change in bowel habits : Negative for dysuria, frequency and incontinence MUSCULOSKELETAL: Negative for joint pain or swelling, back pain, and muscle pain. SKIN: Negative for lesions, rash, and itching. HEMATOLOGY/LYMPHOLOGY Negative for prolonged bleeding, bruising easily, and swollen nodes. ENDOCRINE: Negative for cold or heat intolerance, polyuria, polydipsia and goiter. NEURO: negative Physical Exam: Constitutional: Pt is a well developed 37 year old female who is alert, oriented and cooperative Eyes: Following during examination. No redness or drainage. Respiratory: RR normal and nonlabored. Even breathing. No evidence of distress or shortness of breath. Psychology: Patient is engaged during conversation. Normal affect and mood. Does not appear depressed or anxious during encounter. Vascular: Dorsalis pedis and posterior tibial pulses palpable as b/l Capillary Fill time < 5 seconds to digits 1-5 b/l Skin temperature warm to warm proximal to distal b/l Hair growth present to digits Neurological: intact light touch/epicritic sensation - tinel b/l intact protective sensation no significant neurological deficits Dermatological: Nails 1-5 b/l appear normal. Webspaces clean and dry 1-4 b/l. Skin appears well hydrated and supple. good color, texture, turgor. No open lesions present. No callosities present. Musculoskeletal/Orthopaedic: Patient has pain to palpation of left plantar medial calcaneal tubercle AJ ROM is full with knee extended and flexed 1st MPJ is full when loaded and no pain or crepitus are noted with ROM. MTJ, STJ are full and free of pain and crepitus. +5/5 muscle strength dorsiflexion, plantarflexion, inversion, eversion b/l Radiographs: 2 views left foot ordered May 13, 2022: I have personally reviewed and interpreted these XR myself: small plantar heel spur present ASSESSMENT: (M72.2) Plantar fasciitis (primary encounter diagnosis) (M79.672) Pain of left heel PLAN: 1. Initial Office Visit - A thorough review of the patient's PMH and Podiatric physical exam was completed. 2. Patient advised to perform stretching excercises, icing, and to make appropriate shoe gear changes to include wearing athletic-type shoes with supportive insoles. No barefoot walking. Patient alsogiven written instructions on how to correctly perform the stretching of the achilles tendon/calf st retches, and the heel spur/plantar fasciitis regimen. 3. Patient advised to seek wide, deep toe box, accomodative, comfortable, lace- up, athletic/walkingtype footwear that includes motion control characteristics for support and cushion that need to be worn at all times when weight-bearing. Shoes should be tested for torsional stability as well as proper bending at the toebox rather than at the midfoot. Good quality shoes such as, but not limited to, New Balance or Asics are examples of more proper foot gear. 4. Patient recommended to get powerstep insoles for proper support of the arch in order to alleviate the tension and stress on the plantar fascia associated with normal daily walking. Patient advisedthat these modalities used in conjunction with stretching and icing are able to alleviate most symptoms from this condition. 5. Recommend night splint 6. Offered steroid injection. Patient inclined to try other treatment options first. If pain fails to improve, consider injection. Jero Bruno DPM Podiatry [address] [place] [address] Dept: [phone] Dept * Verónica Parker RN - 05/13/2022 3:21 PM EDT AMB ROOMING INTAKE FLOWSHEET DATA Pain Pain Level: 10 Pain Location: Heel-Left Description: Throbbing, Stabbing Duration Amount of Time: 1 Duration Units: Months Frequency: Continuous Intervention/Comfort measure: Reposition, Relaxation, Other: See comment (OTC Dr. Quintero's insert) Patient presents with: Left Foot - New Patient, Pain Patient here for Urgent Care follow up. Seen on 05/05 for L heel pain. Had XR taken and Rx'd prednisone. Patient denies injury. Pain worse with increased activity and first thing in the morning. documented in this encounterF[facility]08-19-2022 Miscellaneous Notes* Telephone Encounter - Liz Juarez LPN - 05/07/2022 3:23 PM EDT She was seen in urgent care the following day on 05/05/22. Is it possible she missed her appointment on 05/04/22 and showed up on the wrong day and that's why she went to urgent care? She was seen inurgent care at approx 245p and her appt for 05/04/22 was 3p. * Telephone Encounter - Janine Stallings LPN - 05/07/2022 3:07 PM EDT Patient calling, states that she received a no show letter from her appt on 05/04 however when she came to get checked in for her appt she was told that Dr. Zaidi had to leave for an emergency and would not be able to see her. States she was seen for the issue in then. Asking that the no show be removed. Please advise. documented in this encounterFayette [facility]08-17-2022 History of Present illness Narrative* Paulina Zhou RT(R) - 05/05/2022 3:10 PM EDT Radiology Service Progress Note PATIENT NAME: Arlet Navarro DATE OF SERVICE: May 05, 2022 TIME: 3:09 PM PATIENT IDENTITY VERIFICATION COMPLETED USING TWO (2) IDENTIFIERS: Name and Date of confirmedby patient verbally. FALL SCREENING: Has the patient had 2 falls in the last year or 1 fall with injury or currently using an Ambulatory Assistive Device (Walker, Cane, Wheelchair, Crutches, etc.)? No PATIENT GENDER DATA: Female. status: : No status: NO. PATIENT RELEVANT IMPLANT DATA REVIEWED: Not Applicable RADIOLOGY DEPARTMENT: General X-ray: Exam(s) Completed: Lower Extremity X- Ray(s): Heel, Left PERIPHERAL IV DATA: Not applicable SIGNED BY: RT Cherelle(R) May 05, 2022 3:09 PM documented in this encounterFayette County [facility]08-17-2022 Instructions* Patient Instructions* Lia Reyes APRN.CNP - 05/05/2022 3:07 PM EDT Appears to be plantar fasciitis. Naproxen as ordered Stretches, continue heel inserts Recheck in 2 weeks with podiatry documented in this encounterFayette County [facility] Hospital08-17-2022 History of Present illness Narrative* Lia Reyes APRN.CNP - 05/05/2022 2:59 PM EDT Images from the original note were not included. Ref podSubjective The history is provided by the patient. No american sign language interpreter was used. HPI Arlet Navarro is a 37 year old female who presents today for CC of left heel pain for a month. States it is worse in the morning. She has used heel inserts without relief. Better with inserts and as the day goes, worse with extension BP 104/60 Pulse 90 Temp 36.8 C (98.3 F) Resp 16 Wt 73.5 kg (162 lb) SpO2 98% BMI 33.57 kg/m Social History Tobacco Use Smoking status: Former Packs/day: 0.50 Years: 17.00 Pack years: 8.50 Types: Cigarettes Quit date: 10/07/2021 Years since quittin.5 Smokeless tobacco: Never Substance Use Topics Alcohol use: No Drug use: No PAST MEDICAL HISTORY Diagnosis Date Arthritis Kidney stones I have confirmed and edited as necessary, the [facility] Review of Systems Constitutional: Negative for chills and fever. HENT: Negative for sinus pain. Musculoskeletal: Positive for joint pain (left heel). Negative for myalgias. Skin: Negative for itching and rash. All other systems reviewed and are negative. Objective Physical Exam Vitals and nursing note reviewed. Cardiovascular: Pulses: Popliteal pulses are 2+ on the right side and 2+ on the left side. Dorsalis pedis pulses are 2+ on the right side and 2+ on the left side. Pulmonary: Effort: Pulmonary effort is normal. Musculoskeletal: Right foot: Normal. Left foot: Normal range of motion and normal capillary refill. Tenderness and bony tenderness present. No swelling, deformity, bunion, Charcot foot, foot drop, prominent metatarsal heads, laceration or crepitus. Normal pulse. Feet: Comments: Pain worse with extension and pressure on tendon in marked spot. Skin: General: Skin is warm and dry. Neurological: Mental Status: She is alert and oriented to person, place, and time. Sensory: Sensation is intact. Psychiatric: Mood and Affect: Affect normal. ASSESSMENT/PLAN: 1. Pain of left heel - ICD9: 729.5, ICD10: M79.672 Appears to be plantar fasciitis. Naproxen as ordered Stretches, continue heel inserts Recheck in 2 weeks with podiatry - XR CALCANEUS 2V AXIAL/LAT LEFT FINDINGS: No acute fracture or dislocation identified. Miniscule dorsal and plantar calcaneal enthesophytes. IMPRESSION: Miniscule calcaneal enthesophytes. Interpreted by : ANDREZ COPPOLA MD Diagnosis and treatment plan were discussed and questions were answered to the patient's satisfaction. Pt acknowledged understanding of concepts and follow up plan. Specific signs and symptoms that would indicate the need for higher level of care were discussed indetail warranting prompt ER evaluation. Lia Reyes APRN.CNP documented in this encounterFayette [facility]08-02-2022 Miscellaneous Notes* Telephone Encounter - Dorothy Alvarez - 04/20/2022 4:46 PM EDT Patient given results and verbalized understanding of instructions given. Dorothy Alvarez * Telephone Encounter - Ian Woodall APRN.CNP - 04/20/2022 4:41 PM EDT HSV swab negative. Follow-up with PCP as discussed. Ian Woodall APRN.CNP documented in this encounterFayette County [facility] Hospital08-01-2022 Instructions* Patient Instructions* Lia Reyes APRN.CNP - 04/19/2022 5:02 PM EDT covid test ordered You will be notified in 24 -48 hours, results available on [facility] Home isolation until covid results are back Rest, increase water intake Motrin or Tylenol as needed for fever or pain. Salt water gargles, chloraseptic spray or lozenges as needed for sore throat. Warm beverages, honey. Nasal saline spray as needed Cool mist humidifier at night Tylenol (generic acetaminophen) 500 mg-2 tabs every 8 hrs. as needed for fever and aches Ibuprofen 600 mg (3-200mg tablets) every 6 hours Ok to use Nyquil -Mucinex (generic is fine) Guaifenesin 1200 mg twice daily to help with cough and to thin out mucus * Seek medical care immediately, call 911, go to ER if you have chest pain, difficulty breathing, shortness of breath, inability to swallow. Rash - suspect shingles [facility] PATIENT INFO SHINGLES Shingles (Herpes Zoster) What is shingles? Shingles is an infection caused by the same virus that causes chickenpox. This virus is called varicella zoster. You cannot develop shingles unless you have had a previous infection of chickenpox (usually as a child). Shingles is also called herpes zoster. This infection is most common in people over 60 years of age, but young people can have it as well. How does it occur? After you recover from chickenpox, the chickenpox virus is not destroyed. It moves back to the roots of your nerve cells (near the spinal cord) and becomes inactive (dormant). Later, if the virus is reactivated, the symptoms are called shingles. What exactly causes the reactivation of the virus is not known. A weakened immune system seems to allow reactivation of the virus. Advancing age and chronic use of cortisone-type drugs may trigger shingles. The virus may also become active again after the skin is injured or sunburned. Emotional stress seems to be a common trigger as well. What are the symptoms? The first sign of shingles is often burning, sharp pain, tingling, or numbness in or under your skin on one side of your body or face. The most common site is the back or upper abdomen. You may have severe itching or aching. You also may feel tired and ill with fever, chills, headache, and upset stomach. After several days, you will notice a rash of small, clear, fluid-filled blisters on reddenedskin. Within 3 days after they appear, the blisters will turn yellow, then dry and crust over. Overthe next 2 weeks the crusts will drop off, sometimes leaving small, pitted scars. Because they tendto follow nerve paths, the blisters are usually found in a line, often extending from the back or flank around to the abdomen, just on one side. Shingles usually doesn't cross the midline of the body. (The word shingles comes from the Latin word for belt or girdle.) The rash also may appear on one side of your face. Some people have painful eye inflammations and infections. Is shingles contagious? You can't get shingles from someone else, but you may get chickenpox from contact with shingles blisters if you have not had chickenpox before. The shingles virus is in the blister fluid. The virus can spread by direct contact with a blister. It can also be spread by indirect contact, for example, if you use a washcloth that has blister fluid on it. If you have shingles, avoid contact with infants, children, women, and adults who have never had chickenpox or the chickenpox shot until your blisters are completely dry. How is shingles diagnosed? Your health care provider will ask about your symptoms and examine you. Your provider may order labtests to look for the virus in fluid from a blister. How is it treated? It is best to start treatment within 24 to 48 hours after symptoms start. Your health care providermay prescribe: -an antiviral drug, such as acyclovir, to speed recovery and lessen the chance of prolonged symptoms from nerve inflammation -painkillers for more serious discomfort if nonprescription painkillers are not helping enough -antibacterial salves or lotions to help prevent bacterial infection of the blisters -capsaicin cream for pain How long will the effects last? The rash from shingles will heal in 1 to 2 weeks and the pain or irritation will usually disappear within 3 to 5 weeks. If the virus damages a nerve, you may have pain, numbness, or tingling for months or even years after the rash is healed. This is a condition called postherpetic neuralgia. It is most likely to occurafter a shingles outbreaks in people over 50 years old. Antiviral medicine prescribed at the time the shingles is diagnosed and taken for 7 days can help prevent this problem. How can I take care of myself? -Take a pain relief medicine such as acetaminophen. Take other medicine as prescribed by your health care provider. -Put a cool compress on the rash (such as a cool, moist washcloth). -Rest in bed during the early stages if you have fever and other symptoms. -Try to avoid having clothing or bed linens rubbing against the rash, which might irritate it. Call your health care provider if: -You develop worsening pain or fever. -The blisters show signs of bacterial infection, such as increasing pain or redness, or milky yellow drainage from the blister sites. -The blisters are close to the eyes. How can I help prevent shingles? -If you have never had chickenpox, you can get a shot to help prevent infection with the chickenpoxvirus. -You can protect your immune system and lessen your chances of getting shingles by trying to keep your stress under control documented [facility] History of Present illness Narrative* Lia Reyes APRN.CNP - 04/19/2022 4:49 PM EDT Images from the original note were not included. Subjective The history is provided by the patient. No american sign language interpreter was used. HPI Arlet Navarro is a 37 year old female who presents today for CC of cough, sore throat thatstarted 3 days ago. She also has a rash that started in past 24 hours on neck tingling burning sensation. She has used mucinex and nyquil without relief. She denies any known exposure to covid has not tested. BP 108/80 Pulse 97 Temp 36.7 C (98.1 F) Resp 20 Wt 74 kg (163 lb 3.2 oz) SpO2 98% BMI 33.82 kg/m Social History Tobacco Use Smoking status: Former Smoker Packs/day: 0.50 Years: 17.00 Pack years: 8.50 Quit date: 10/07/2021 Years since quittin.5 Smokeless tobacco: Never Used Substance Use Topics Alcohol use: No Drug use: No PAST MEDICAL HISTORY Diagnosis Date Arthritis Kidney stones I have confirmed and edited as necessary, the [facility] Review of Systems Constitutional: Positive for chills, fever and malaise/fatigue. HENT: Positive for sore throat. Negative for congestion, ear pain and sinus pain. Respiratory: Positive for cough. Negative for sputum production, shortness of breath and wheezing. Cardiovascular: Negative for chest pain. Gastrointestinal: Negative for abdominal pain, diarrhea, nausea and vomiting. Musculoskeletal: Positive for myalgias. Skin: Positive for rash. Neurological: Positive for headaches. Objective Physical Exam Vitals and nursing note reviewed. HENT: Head: Normocephalic and atraumatic. Right Ear: Tympanic membrane, ear canal and external ear normal. Left Ear: Tympanic membrane, ear canal and external ear normal. Nose: Mucosal edema, congestion and rhinorrhea present. Mouth/Throat: Pharynx: Uvula midline. Posterior oropharyngeal erythema (mild) present. No oropharyngeal exudate. Cardiovascular: Rate and Rhythm: Normal rate and regular rhythm. Heart sounds: Normal heart sounds. Pulmonary: Effort: Pulmonary effort is normal. Breath sounds: Normal breath sounds. Lymphadenopathy: Head: Right side of head: No submental, submandibular or tonsillar adenopathy. Left side of head: No submental, submandibular or tonsillar adenopathy. Cervical: No cervical adenopathy. Skin: General: Skin is warm and dry. Findings: Erythema and rash present. Rash is papular and vesicular. Neurological: Mental Status: She is alert. Psychiatric: Mood and Affect: Affect normal. ASSESSMENT/PLAN: 1. Rash - ICD9: 782.1, ICD10: R21 (primary diagnosis) Possible shingles Cultures done Started on valtrex, if negative can stop - HSV 1,2/VZV AMP MOLECULAR DETECT 2. Upper respiratory symptom - ICD9: 786.9, ICD10: R09.89 - 2019 CORONAVIRUS 3. Suspected COVID-19 virus infection - ICD9: V01.79, ICD10: Z20.822 Home isolation Testing ordered Comfort measures discussed - see patient instructions. When to seek higher level of care Notified in 24-48 hours with results, available on har - 2018 CORONAVIRUS Diagnosis and treatment plan were discussed and questions were answered to the patient's satisfaction. Pt acknowledged understanding of concepts and follow up plan. Specific signs and symptoms that would indicate the need for higher level of care were discussed indetail warranting prompt ER evaluation. Lia Reyes APRN.ANALISA documented in this [facility]05[facility] History of Present illness Narrative* Ian Woodall APRN.CNP - 01/26/2022 12:50 PM EDT Subjective HPI Nontoxic-appearing female presents urgent care chief complaint abdominal pain. Duration of symptoms3 days. Associated symptoms increasing abdominal pain and vaginal pressure. Patient states pain is 8 out of 10 at rest. Patient states if she pushes over her lower abdominal pain is 10 out of 10. History of a hysterectomy. Denies any vaginal discharge itching or burning. No frequency with urination. Denies history of recent UTIs. Denies any fevers vomiting cough chest pain shortness of breath pleuritic pain hemoptysis or rashes. Past medical history prescription medication use allergies reviewed. .Patient presents with: Abdominal Pain PAST MEDICAL HISTORY Diagnosis Date Arthritis Kidney stones PAST SURGICAL HISTORY Procedure Laterality Date HYSTERECTOMY HX 2011 has left ovary LAP UMBILICAL HERNIA REPAIR ALLERGIES [place] [Hydrocodone-Acetaminophen] MEDICATIONS benzonatate (TESSALON PERLES) 100 mg capsule Take 1 capsule by mouth three times daily as needed for cough. ibuprofen (MOTRIN) 600 mg tablet Take 1 tablet by mouth every 6 hours as needed for pain. ondansetron orally disintegrating (ZOFRAN ODT) 4 mg disintegrating tablet Take 1 tablet by mouth every 6 hours as needed for nausea/vomiting. omeprazole (PRILOSEC) 40 mg capsule Take 1 capsule by mouth once daily. melatonin 3 mg tablet Take 3 mg by mouth once daily. FAMILY HISTORY Problem Relation Age of Onset [...] Social History Tobacco Use Smoking status: Former Smoker Packs/day: 0.50 Years: 17.00 Pack years: 8.50 Quit date: 10/07/2021 Years since quittin.3 Smokeless tobacco: Never Used Substance Use Topics Alcohol use: No Drug use: No BP 106/64 Pulse 90 Temp 36.8 C (98.2 F) (Tympanic) Resp 16 Wt 73.5 kg (162 lb) SpO2 97% BMI 33.57 kg/m Review of Systems Constitutional: Negative for chills, fever and malaise/fatigue. HENT: Negative for congestion, ear discharge, ear pain, sinus pain and sore throat. Eyes: Negative for blurred vision, pain, discharge and redness. Respiratory: Negative for cough, hemoptysis, sputum production, shortness of breath, wheezing and stridor. Cardiovascular: Negative for chest pain. Gastrointestinal: Positive for abdominal pain. Negative for diarrhea, nausea and vomiting. Musculoskeletal: Negative for myalgias. Skin: Negative for itching and rash. Neurological: Negative for dizziness and headaches. Objective Physical Exam Constitutional: General: She is not in acute distress. Appearance: She is not diaphoretic. HENT: Head: Normocephalic. Mouth/Throat: Mouth: Mucous membranes are moist. Pharynx: Oropharynx is clear. No oropharyngeal exudate or posterior oropharyngeal erythema. Eyes: Conjunctiva/sclera: Conjunctivae normal. Pupils: Pupils are equal, round, and reactive to light. Cardiovascular: Rate and Rhythm: Normal rate and regular rhythm. Heart sounds: Normal heart sounds. Pulmonary: Effort: Pulmonary effort is normal. No tachypnea, accessory muscle usage or respiratory distress. Breath sounds: Normal breath sounds. No stridor. Abdominal: Palpations: Abdomen is soft. Tenderness: There is abdominal tenderness in the right lower quadrant and left lower quadrant. There is guarding. There is no rebound. Musculoskeletal: Cervical back: Normal range of motion and neck supple. No rigidity or tenderness. Lymphadenopathy: Cervical: No cervical adenopathy. Skin: General: Skin is warm and dry. Neurological: Mental Status: She is alert and oriented to person, place, and time. ASSESSMENT/PLAN: 1. Lower abdominal pain - ICD9: 789.09, ICD10: R10.30 Patient has significant pain upon palpation of the lower abdominal region. With patient presenting symptoms I recommended patient be seen in ED for further evaluation care. Patient verbalized understanding agrees with plan of care. Ian Woodall APRN.ANALISA documented in this encounterF[facility]04-28-2022 Instructions* Patient Instructions* Latha Fatima APRN.CNP - 01/14/2022 5:47 PM EDT Viral illness (primary encounter diagnosis) Uri, acute You have been diagnosed with an illness caused by a virus. Antibiotics do not cure viral infections. If given when not needed, antibiotics can be harmful. The treatments described below will help youfeel better while your body's own defenses are fighting the virus. General Instructions: Drink extra water and juice. Use a cool mist vaporizer or saline nasal spray to relieve congestion. For Sore throats, use ice chips or sore throat spray; lozenges for older children and adults. Specific Medications: Fever, aches, ear pain: Use medicines according to the package instructions or as directed by your healthcare provider. Stop the medication when the symptoms get better. No follow-ups on file. documented in this encounterF[facility]04-28-2022 History of Present illness Narrative* Latha Fatima APRN.CNP - 01/14/2022 5:43 PM EDT This note was created using [employer]. Subjective Arlet Navarro is a 36 year old female. 36 year old female with no PMH presents for illness. think I have the flu Acute onset this morning +cough +congestion +SOB with coughing. +sore throat + stuffy nose +diarrhea +fatigue +body aches Attempted NyQuild and Pepto Bismol. States she works at [employer] and +exposure to ill persons. The history is provided by the patient. No american sign language interpreter was used. Flu Like Symptoms This is a new problem. The current episode started today. The problem occurs constantly. The problem has been unchanged. Associated symptoms include congestion, coughing, fatigue, headaches, myalgiasand a sore throat. Pertinent negatives include no abdominal pain, anorexia, arthralgias, change in bowel habit, chest pain, chills, diaphoresis, fever, joint swelling, nausea, neck pain, numbness, rash, swollen glands, urinary symptoms, vertigo, visual change, vomiting or weakness. Nothing aggravates the symptoms. Treatments tried: Nyuil and PeptoBismol. The treatment provided no relief. PAST MEDICAL HISTORY Diagnosis Date Arthritis Kidney stones PAST SURGICAL HISTORY Procedure Laterality Date HYSTERECTOMY HX 2011 has left ovary LAP UMBILICAL HERNIA REPAIR ALLERGIES [place] [Hydrocodone-Acetaminophen] MEDICATIONS ondansetron orally disintegrating (ZOFRAN ODT) 4 mg disintegrating tablet Take 1 tablet by mouth every 6 hours as needed for nausea/vomiting. omeprazole (PRILOSEC) 40 mg capsule Take 1 capsule by mouth once daily. melatonin 3 mg tablet Take 3 mg by mouth once daily. benzonatate (TESSALON PERLES) 100 mg capsule Take 1 capsule by mouth three times daily as needed for cough. ibuprofen (MOTRIN) 600 mg tablet Take 1 tablet by mouth every 6 hours as needed for pain. FAMILY HISTORY Problem Relation Age of Onset [...] Social History Tobacco Use Smoking status: Former Smoker Packs/day: 0.50 Years: 17.00 Pack years: 8.50 Quit date: 10/07/2021 Years since quittin.2 Smokeless tobacco: Never Used Substance Use Topics Alcohol use: No Drug use: No Review of Systems Constitutional: Positive for fatigue. Negative for chills, diaphoresis and fever. HENT: Positive for congestion, postnasal drip, rhinorrhea, sinus pain and sore throat. Eyes: Negative for pain, discharge, redness and itching. Respiratory: Positive for cough. Negative for apnea, choking and chest tightness. Cardiovascular: Negative for chest pain, palpitations and leg swelling. Gastrointestinal: Negative for abdominal pain, anorexia, change in bowel habit, nausea and vomiting. Musculoskeletal: Positive for myalgias. Negative for arthralgias, joint swelling and neck pain. Skin: Negative for color change, pallor and rash. Allergic/Immunologic: Negative for environmental allergies, food allergies and immunocompromised state. Neurological: Positive for headaches. Negative for dizziness, vertigo, facial asymmetry, weakness and numbness. Hematological: Negative for adenopathy. Does not bruise/bleed easily. Psychiatric/Behavioral: Negative for agitation and behavioral problems. Objective BP 100/70 Pulse 100 Temp 36.8 C (98.2 F) Resp 28 Wt 73.7 kg (162 lb 6.4 oz) SpO2 96% BMI 33.65 kg/m Physical Exam Vitals and nursing note reviewed. Constitutional: General: She is not in acute distress. Appearance: Normal appearance. She is normal weight. She is not ill-appearing, toxic-appearing or diaphoretic. HENT: Head: Normocephalic and atraumatic. Right Ear: Ear canal and external ear normal. Left Ear: Ear canal and external ear normal. Nose: Nose normal. No congestion or rhinorrhea. Mouth/Throat: Mouth: Mucous membranes are moist. Pharynx: No oropharyngeal exudate or posterior oropharyngeal erythema. Eyes: General: Right eye: No discharge. Left eye: No discharge. Extraocular Movements: Extraocular movements intact. Conjunctiva/sclera: Conjunctivae normal. Pupils: Pupils are equal, round, and reactive to light. Cardiovascular: Rate and Rhythm: Normal rate and regular rhythm. Pulses: Normal pulses. Heart sounds: Normal heart sounds. No murmur heard. No friction rub. Pulmonary: Effort: Pulmonary effort is normal. No respiratory distress. Breath sounds: Normal breath sounds. No stridor. No wheezing, rhonchi or rales. Chest: Chest wall: No tenderness. Abdominal: General: Abdomen is flat. There is no distension. Palpations: Abdomen is soft. There is no mass. Tenderness: There is no abdominal tenderness. There is no right CVA tenderness, left CVA tenderness, guarding or rebound. Hernia: No hernia is present. Musculoskeletal: General: No swelling, tenderness, deformity or signs of injury. Normal range of motion. Cervical back: Normal range of motion and neck supple. No rigidity. Right lower leg: No edema. Left lower leg: No edema. Lymphadenopathy: Cervical: No cervical adenopathy. Skin: General: Skin is warm and dry. Coloration: Skin is not jaundiced or pale. Findings: No bruising, erythema, lesion or rash. Neurological: General: No focal deficit present. Mental Status: She is alert and oriented to person, place, and time. Cranial Nerves: No cranial nerve deficit. Sensory: No sensory deficit. Motor: No weakness. Coordination: Coordination normal. Gait: Gait normal. Psychiatric: Mood and Affect: Mood normal. Behavior: Behavior normal. Thought Content: Thought content normal. Judgment: Judgment normal. Assessment and Plan ASSESSMENT/PLAN: 1. Viral illness - ICD9: 079.99, ICD10: B34.9 (primary diagnosis) - Discussed viral etiology and rationale for treatment. - Symptomatic treatment with prn analgesia - Supportive care with fluids and rest - The patient may also use OTC cough and cold meds as needed, warm salt water gargles, throat lozenges and/or OTC throat spray as needed and nasal saline gtts and suction prn. - Follow up in 3-5 days if symptoms persist or sooner if worsening of symptoms - COVID WITH FLUA+B, ROUTINE-obtained Work note 2. URI, acute - ICD9: 465.9, ICD10: J06.9 - Discussed viral etiology and rationale for treatment. - Symptomatic treatment with prn analgesia - Supportive care with fluids and rest - COVID WITH FLUA+B, ROUTINE RX tessalon Perles Ibuprofen Latha Fatima APRN.CNP documented in this encounterF[facility]04-22-2022 Instructions* Patient Instructions* Sabrina Lester APRN.CNP - 01/08/2022 1:47 PM EDT ASSESSMENT/PLAN: 1. Sore throat - ICD9: 462, ICD10: J02.9 (primary diagnosis) - suspect viral - Alere Strep Test NEGATIVE, no culture pending - Discussed supportive care treatment with fluids, rest and analgesia. - STREP A MOLECULAR (POC) 2. Swelling of right eyelid - ICD9: 374.82, ICD10: H02.843 - likely developing stye. Recommend warm compresses 3 times daily. - Follow-up with your PCP in 3-5 days if symptoms have not improved or sooner if symptoms worsen - Discussed red flags and need for immediate medical evaluation if any occur. - Discussed supportive care treatment with fluids, rest and analgesia. - Discussed expected course of illness Sabrina Lester APRN.CNP SORE THROAT INSTRUCTIONS SORE THROAT OVERVIEW - Sore throat is a common problem during childhood, and is usually the result of a bacterial or viral infection. Although sore throat usually resolves without complications, it sometimes requires treatment with an antibiotic. There are some less common causes of sore throat that are serious or even life-threatening. This topic will discuss the most common causes and treatments of sore throat in children, as well as the warning signs of more serious conditions. SORE THROAT CAUSES - The most likely cause of a child's sore throat depends upon the child's age, the season, and the geographic area. While viruses are the most common cause of sore throat, bacteriaare another common cause. Bacteria and viruses are spread from one person to another through hand contact. Hands get contaminated when the sick individual touches their nose or mouth and then touchesanother person directly (wbvt-le-likz contact) or indirectly (tavm-te-sgonip, such as doorknob, telephone, toys). It is difficult to determine the cause of sore throat based upon symptoms alone; an examination andlaboratory test are recommended in most cases Viruses - There are many viruses that can cause pain and swelling of the throat. The most common include viruses that cause sore throat as part of an upper respiratory infection, such as the common cold. Other viruses that cause sore throat include influenza, adenovirus, and Mau-Juarez virus (thecause of mononucleosis). Symptoms - Symptoms that may occur with a viral infection can include a runny nose and congestion, irritation or redness of the eyes, cough, hoarseness, soreness in the roof of the mouth, a skin rash, or diarrhea. In addition, children with viral infections may have a fever and may feel miserable. A high fever does not necessarily mean that the child has a bacterial infection. Group A streptococcus - Group A streptococcus (GAS) is the name of the bacterium that causes strep throat. Although other bacteria can cause a sore throat, GAS is the most common bacterial cause; up to 30 percent of children with a sore throat will have GAS. Strep throat usually occurs during the winter and early spring, and is most common in school-age children and their younger siblings. Symptoms - Symptoms of strep throat in children older than 3 years often develop suddenly and include fever (temperature ?100.4 F or 38 C), headache, abdominal pain, nausea, and vomiting. Other symptoms can include swollen glands in the neck, white patches of pus in the back or sides of the throat,small red spots on the roof of the mouth, and swelling of the uvula. A cough and cold are not commonly seen in children with strep throat. Strep throat is uncommon in children younger than age 2 to 3 years. However, GAS infection can occur in younger children, and may cause a runny nose and congestion that is prolonged, low-grade fever (?101 F or 38.3 C), and tender glands in the neck. Infants younger than 1 year may be fussy and havea decreased appetite and low-grade fever. SORE THROAT TREATMENT - The treatment of sore throat depends upon the cause; strep throat is treated with an antibiotic while viral pharyngitis is treated with rest, pain relievers, and other measures to reduce symptoms. Strep throat - Strep throat is usually treated with an antibiotic, such as penicillin, or an antibiotic similar to penicillin (eg, amoxicillin). Children who are allergic to penicillin will be given an alternate antibiotic. The antibiotic is usually given in pill or liquid form two or three times per day. A one-time injection is also available, and may be recommended if a child is unwilling to take an oral medication. After completing 24 hours of antibiotics, the child is no longer contagious and may return to school. Symptoms usually improve within 1 to 2 days. However, it is important for the child to finish theentire course of treatment (usually 10 days). If a child does not begin to improve or worsens within 3 days, the child should be reevaluated. Throat pain can be treated with a non-prescription pain medication, if needed. (See 'Pain medications' below.) In addition, parents should monitor their child for dehydration, which can develop if the child is not willing to drink or eat due to a sore throat. (See 'Monitor for dehydration' below.) Viral throat pain - Sore throat caused by viral infections usually last 4 to 5 days. During this time, treatments to reduce pain may be helpful but will not help to eliminate the virus. Antibiotics do not improve throat pain caused by a virus and are not recommended. A child with a viral infection is usually allowed to return to school when there has been no fever for 24 hours and the child feels well enough to pay attention. Pain medications - Throat pain can be treated with a mild pain reliever such as acetaminophen (Tylenol ) or a non-steroidal anti-inflammatory agent such as ibuprofen (Motrin ). These medications should be dosed according to weight, not age. Aspirin is not recommended for children <18 years due to the risk of a potentially serious condition known as Suraj syndrome. Monitor for dehydration - Some children with a sore throat are reluctant to drink or eat due to pain. Drinking less fluid can lead to dehydration. To reduce the risk of dehydration, parents can offerwarm or cold liquids. (See 'Other interventions' below.) Signs and symptoms of mild dehydration include a slightly dry mouth, increased thirst, and decreased urine output (one wet diaper or void in six hours). Signs of moderate or severe dehydration include decreased urine output (less than one wet diaper or void in six hours), lack of tears when crying,dry mouth, and sunken eyes. A child who is moderately or severely dehydrated should be evaluated by a healthcare provider as soon as possible to determine if treatment is needed. Oral rinses- Salt-water gargles are an old stand-by for relief of throat pain. It is not clear if this treatmentis effective, but it is unlikely to be harmful. Most recipes suggest 1/4 to 1/2 teaspoon of salt per cup (8 ounces) of warm water. The water should be gargled and then spit out (not swallowed). Children younger than six to eight years are not able to gargle properly. An oral rinse composed of equal parts of diphenhydramine (Benadryl liquid) and Maalox (magnesium hydroxide, aluminum hydroxide, and simethicone) may be helpful for pain caused by a sore mouth or ulcers in the mouth. Children older than six to eight years may swish and spit (not swallow) the mixture. Sprays - Sprays containing topical anesthetics are available to treat sore throat. However, such sprays are no more effective than sucking on hard candy. In addition, a common anesthetic ingredient, benzocaine, can cause allergic reactions. We do not recommend throat sprays for children. Lozenges - A variety of medicated throat lozenges are available to relieve dryness or pain. However, it is not clear that lozenges work any better than hard candy. We do not recommend throat lozengesfor children, especially children younger than 3 to 4 years, who can choke. Sucking on hard candy may provide some relief for children older than 3 to 4 years, who are not at risk for choking. Other interventions - Other interventions include sipping warm beverages (eg, honey or lemon tea, chicken soup), cold beverages, or eating cold or frozen desserts (eg, ice cream, popsicles). These treatments are safe for children. Honey should not be given to children younger than 12 months due to the potential risk of botulism poisoning. Alternative therapies - Health food stores, vitamin outlets, and Internet Web sites offer alternative treatments for relief of sore throat pain. We do not recommend these treatments due to the risks of contamination with pesticides/herbicides, inaccurate labeling and dosing information, and a lack of studies showing that these treatments are safe and effective. SORE THROAT PREVENTION - Hand washing is an essential and highly effective way to prevent the spread of infection. Hands should be wet with water and plain soap, and rubbed together for 15 to 30 seconds. Special attention should be paid to the fingernails, between the fingers, and the wrists. Handsshould be rinsed thoroughly, and dried with a single use towel. Alcohol-based hand rubs are a good alternative for disinfecting hands if a sink is not available. Hand rubs should be spread over the entire surface of hands, fingers, and wrists until dry, and may be used several times. These rubs can be used repeatedly without skin irritation or loss of effectiveness. Hand rubs are available as a liquid or wipe in small, portable sizes that are easy to carry in a pocket or handbag. When a sink is available, visibly soiled hands should be washed with soap and water. Hands should be washed after coughing, blowing the nose or sneezing. While it is not always possible to limit contact with a person who is sick, avoiding touching the eyes, nose, or mouth after direct contact can help to prevent the spread of infection. In addition, tissues should be used to cover the mouth when sneezing or coughing. These used tissues should be disposed of promptly. Sneezing/coughing into the sleeve of one's clothing (at the inner elbow) is another means of containing sprays of saliva and secretions and has the advantage of not co ntaminating the hands. WHEN TO SEEK HELP - Parents of a child with throat pain and one or more of the following should contact their healthcare provider immediately: Difficulty swallowing or breathing Excessive drooling in an or young child Temperature ?101 F or 38.3 C Swelling of the neck Child is unable or unwilling to drink or eat Voice sounds muffled Child has a stiff neck or difficulty opening the mouth WHERE TO GET MORE INFORMATION - Your child's healthcare provider is the best source of information for questions and concerns related to your child's medical problem. This article will be updated as needed every four months on our web site ([email or web address]). Information below was obtained from Up to date Last literature review version 19.2: January 2011 This topic last updated: May 06, 2010 documented in this encounterF[facility]04-22-2022 History of Present illness Narrative* Sabrina Lester APRN.CNP - 01/08/2022 1:45 PM EDT Images from the original note were not included. Subjective HPI Arlet Navarro is a 36 year old female who presents with a sore throat for the past one day. She rates her pain 8/10. She has not taken any medication for this at home. She denies any associated URI symptoms. She also noticed her right eye had some matting on the upper lid this morning. Review of Systems Constitutional: Negative for chills and fever. HENT: Positive for sore throat. Negative for congestion. Eyes: Positive for discharge. Negative for blurred vision, double vision, photophobia, pain and redness. Respiratory: Negative. Cardiovascular: Negative. BP 110/74 Pulse 82 Temp 36.7 C (98.1 F) Resp 14 Wt 75.1 kg (165 lb 9.6 oz) SpO2 98% BMI34.31 kg/m PAST MEDICAL HISTORY Diagnosis Date Arthritis Kidney stones PAST SURGICAL HISTORY Procedure Laterality Date HYSTERECTOMY 2011 has left ovary LAP UMBILICAL HERNIA REPAIR ALLERGIES [place] [Hydrocodone-Acetaminophen] MEDICATIONS ondansetron orally disintegrating (ZOFRAN ODT) 4 mg disintegrating tablet Take 1 tablet by mouth every 6 hours as needed for nausea/vomiting. omeprazole (PRILOSEC) 40 mg capsule Take 1 capsule by mouth once daily. melatonin 3 mg tablet Take 3 mg by mouth once daily. FAMILY HISTORY Problem Relation Age of Onset [...] Social History Tobacco Use Smoking status: Former Smoker Packs/day: 0.50 Years: 17.00 Pack years: 8.50 Quit date: 10/07/2021 Years since quittin.2 Smokeless tobacco: Never Used Substance Use Topics Alcohol use: No Drug use: No Objective Physical Exam Vitals and nursing note reviewed. Constitutional: Appearance: She is obese. HENT: Right Ear: Tympanic membrane, ear canal and external ear normal. Left Ear: Tympanic membrane, ear canal and external ear normal. Nose: Nose normal. Mouth/Throat: Mouth: Mucous membranes are moist. Pharynx: Uvula midline. Posterior oropharyngeal erythema present. No oropharyngeal exudate. Tonsils: Tonsillar exudate present. Eyes: General: Right eye: Discharge present. No foreign body. Conjunctiva/sclera: Right eye: Right conjunctiva is not injected. Left eye: Left conjunctiva is not injected. Cardiovascular: Rate and Rhythm: Normal rate and regular rhythm. Heart sounds: Normal heart sounds. Pulmonary: Effort: Pulmonary effort is normal. No respiratory distress. Breath sounds: Normal breath sounds. No wheezing or rales. Musculoskeletal: Cervical back: Neck supple. Lymphadenopathy: Cervical: No cervical adenopathy. Skin: General: Skin is warm and dry. Findings: No erythema or rash. Neurological: Mental Status: She is alert. ASSESSMENT/PLAN: 1. Sore throat - ICD9: 462, ICD10: J02.9 (primary diagnosis) - suspect viral - Alere Strep Test NEGATIVE, no culture pending - Discussed supportive care treatment with fluids, rest and analgesia. - STREP A MOLECULAR (POC) 2. Swelling of right eyelid - ICD9: 374.82, ICD10: H02.843 - likely developing stye. Recommend warm compresses 3 times daily. - Follow-up with your PCP in 3-5 days if symptoms have not improved or sooner if symptoms worsen - Discussed red flags and need for immediate medical evaluation if any occur. - Discussed supportive care treatment with fluids, rest and analgesia. - Discussed expected course of illness Sabrina Lester APRN.CARDIAC REHABILITATION PROGRAM DIRECTOR documented in this encounterFayette County [facility] Hospital03-24-2022 Miscellaneous Notes* Telephone Encounter - Megan Dickerson LPN - 12/10/2021 2:00 PM EDT Spoke with pt and information listed below given. Pt verbalizes understanding. Megan Dickerson LPN * Telephone Encounter - Liz Juarez LPN - 12/10/2021 1:46 PM EDT Attempted to phone patient to update with results and recommendations. There was no answer and her VM was full. Will attempt call again later. * Telephone Encounter - Shaniqua Beckford MD - 12/10/2021 10:[address] scan was negative in the ER and her WBC has trended down from 18 to 14. I would have her take the 40 mg of omeprazole encourage her to keep appointment with general surgery for EGD to further evaluate her epigastric pain with nausea and vomiting. * Telephone Encounter - Liz Juarez LPN - 12/10/2021 9:55 AM EDT Patient updated that Dr. Beckford has CT results and no need for CT today. * Telephone Encounter - Roslyn Mora Ma - 12/10/2021 9:48 AM EDT Images from the original note were not included. Printed from [employer], given to you to review. CT results below from [facility]: * Telephone Encounter - Shaniqua Beckford MD - 12/10/2021 9:14 AM EDT Please obtain records from [facility] ED. If they did CT scan there, would not need to get one today. * Telephone Encounter - Roslyn Mora Ma - 12/10/2021 9:08 AM EDT See message from pt. CT scheduled for today. Roslyn Mora Ma documented in this encounterFayette County [facility] Hospital03-23-2022 Miscellaneous Notes* Telephone Encounter - Janine Stallings LPN - 12/09/2021 2:24 PM EDT Patient notified and agreeable to ER. Patient is going now. * Telephone Encounter - Shaniqua Beckford MD - 12/09/2021 2:01 PM EDT If she is having severe pain I would have her go to the ED instead of waiting for our CT scan. * Telephone Encounter - Megan Dickerson LPN - 12/09/2021 1:37 PM EDT Pt called back asking if there if there is a pain med you could call for her. If not she will have to go to ER because the pain is so bad, Please advise pt. Megan Dickerson LPN * Telephone Encounter - Leila Garcia LPN - 12/09/2021 1:24 PM EDT Patient notified of results, verbalizes understanding of instructions. Pt will call in and schedule CT. Leila Garcia LPN * Telephone Encounter - Shaniqua Beckford MD - 12/09/2021 12:[address] scan ordered to rule out bowel obstruction. rx sent in for zofran for nausea with vomiting.Would have her continue with Omeprazole and clear liquid diet while awaiting results. * Telephone Encounter - Janine Stallings LPN - 12/09/2021 11:54 AM EDT Patient notified. Patient states that her symptoms are not better. She is back to not being able to keep anything down. * Telephone Encounter - Shaniqua Beckford MD - 12/09/2021 10:40 AM EDT US RUQ negative for signs of inflamed gallbladder. Did note 2 mm focus along the gallbladder wall which may be small polyp. Are her abdominal pain symptoms improving today? documented in this encounterFayette County [facility]03-23-2022 Miscellaneous Notes* Telephone Encounter - Janine Stallings LPN - 12/09/2021 9:06 AM EDT Patient has completed the US. * Telephone Encounter - Shaniqua Beckford MD - 12/08/2021 7:52 PM EDT Negative for pancreatitis or liver inflammation. She has significantly elevated WBC and ANC which indicates acute infection. If she is having worsening pain, fever/chills, unable to tolerate PO diet would recommend ER evaluation for STAT workup of epigastric pain possibly related to gallbladder. If not, will change US of RUQ to STAT. Called patient with this information and she states she is actually feeling better. Able to eat dinner tonight, but pain in 4/10 in RUQ after eating. Taking PPI and Aleve. Denies fever, chills, nausea, vomiting. Advised to call tomorrow morning first thing to get STAT US set up for same day. Red flags for re- assessment reviewed with patient in detail. documented in this encounterFayette [facility]03-21-2022 Miscellaneous Notes* Telephone Encounter - Yves West Ma - 12/07/2021 4:04 PM EDT Patient notified, verbalized understanding. Yves West Ma * Telephone Encounter - Tootie Mujica APRN.CNP - 12/07/2021 3:58 PM EDT Please call patient and let her know her xray was normal. Follow-up with plan as discussed in appointment. Tootie Mujica APRN.CNP documented in this encounterFayette County [facility] Hospital03-21-2022 History of Present illness Narrative* Nikky Henderson RT(R) - 12/07/2021 3:20 PM EDT Radiology Service Progress Note PATIENT NAME: Arlet Navarro DATE OF SERVICE: December 07, 2021 TIME: 3:09 PM PATIENT IDENTITY VERIFICATION COMPLETED USING TWO (2) IDENTIFIERS: Name and Date of confirmedby patient verbally. FALL SCREENING: Has the patient had 2 falls in the last year or 1 fall with injury or currently using an Ambulatory Assistive Device (Walker, Cane, Wheelchair, Crutches, etc.)? No PATIENT GENDER DATA: Female. status: : No status: NO. PATIENT RELEVANT IMPLANT DATA REVIEWED: Yes RADIOLOGY DEPARTMENT: General X-ray: Exam(s) Completed: Abdomen X-Ray: Abdomen PERIPHERAL IV DATA: Not applicable SIGNED BY: RT Nasra(Paul) December 07, 2021 3:09 PM documented in this encounterFayette County [facility] Hospital03-21-2022 History of Present illness Narrative* Shaniqua Beckford MD - 12/07/2021 2:25 PM EDT Chief Complaint Patient presents with: Heartburn: indigestion, bloating and radiating pain HPI Arlet Navarro is a 36 year old female who presents here today for Above Complaints. Patient complaining of indigestion which started about 4 days ago. Describes this as epigastric pressure with increased burping. States that she has also had early satiety all weekend. She will eats a few bites of food and then vomits. Has taken Pepto and Beano without much improvement in symptoms.Admits to bloating with dysphagia, heartburn, odynophagia, globus sensation. Denies fever, chills, diarrhea, constipation, hematochezia, melena. Past medical history, appointments, medications, allergies reviewed. Previous Medical History PAST MEDICAL HISTORY Diagnosis Date Arthritis Kidney stones Previous Surgical History PAST SURGICAL HISTORY Procedure Laterality Date HYSTERECTOMY HX 2011 has left ovary LAP UMBILICAL HERNIA REPAIR Family History FAMILY HISTORY Problem Relation Age of Onset Breast Cancer Mother Hypertension Mother Heart Mother other (ms) Mother Fibromyalgia Mother No Known Problems Father Diabetes Sister No Known Problems Brother other (MS) Maternal Grandmother Breast Cancer Maternal Grandmother Heart Maternal Grandmother other (hTN) Maternal Grandmother No Known Problems Maternal Grandfather No Known Problems Paternal Grandmother No Known Problems Paternal Grandfather Patient Allergies ALLERGIES Allergen Reactions [place] [Hydrocodone-* Hives, Swelling Current Medications Current Outpatient Medications on File Prior to Visit Medication Sig melatonin 3 mg tablet Take 3 mg by mouth once daily. No current facility-administered medications on file prior to visit. Social History Social History Tobacco Use Smoking status: Former Smoker Packs/day: 0.50 Years: 17.00 Pack years: 8.50 Quit date: 10/07/2021 Years since quittin.1 Smokeless tobacco: Never Used Substance Use Topics Alcohol use: No Drug use: No Review of Symptoms REVIEW OF SYSTEMS See HPI EXAM: BP 128/66 Pulse 94 Resp 18 Wt 74.7 kg (164 lb 9.6 oz) SpO2 97% BMI 34.11 kg/m General Appearance: Well appearing, alert, in no acute distress, well-hydrated, well nourished.. Skin: Skin color, texture, turgor normal, no suspicious rashes or lesions. Neck: thyroid symmetric, normal size. Lungs: Lungs clear to auscultation. No wheezing, rhonchi, rales.. Heart: RRR without murmur, gallop, or rubs. No ectopy. Abdomen: Abdomen soft. Bowel sounds normal. No masses, organomegaly, Negative CVA tenderness, Positive findings: tenderness moderate epigastric and RUQ without guarding or rebound. Negative perez's sign. Health Maintenance List HPV TESTING Never done INFLUENZA(1) Never done DTAP,TDAP,TD(1 - Tdap) due on 01/28/2022 ONE PNEUMOVAX PRIOR TO AGE 65 due on 01/28/2022 HEPATITIS C SCREENING due on 01/28/2022 HIV SCREENING due on 01/28/2022 COVID-19 VACCINE(3 - Booster for Pfizer series) due on 12/28/2021 PAP TESTING due on 06/30/2022 DEPRESSION SCREENING due on 10/21/2022 MENINGOCOCCAL CONJUGATE Aged Out ASSESSMENT/PLAN: 1. Epigastric pain - ICD9: 789.06, ICD10: R10.13 (primary diagnosis) Start PPI. Check labs and RUQ US to to rule out GB etiology. Check KUB for bowel obstruction. F/u with GI. Red flags for re-assessment reviewed with patient in detail. - OMEPRAZOLE 40 MG CAPSULE,DELAYED RELEASE - CBC + DIFF - COMP METABOLIC PANEL - LIPASE BLD - US ABD RT UPPER QUADRANT 2. Gastroesophageal reflux disease, unspecified whether esophagitis present - ICD9: 530.81, ICD10: K21.9 - OMEPRAZOLE 40 MG CAPSULE,DELAYED RELEASE - XR ABDOMEN 1V SUPINE 3. Esophageal dysphagia - ICD9: 787.29, ICD10: R13.19 - XR ABDOMEN 1V SUPINE - CONSULT TO GASTROENTEROLOGY 4. Odynophagia - ICD9: 787.20, ICD10: R13.10 - XR ABDOMEN 1V SUPINE - CONSULT TO GASTROENTEROLOGY 5. Early satiety - ICD9: 780.94, ICD10: R68.81 - XR ABDOMEN 1V SUPINE - CONSULT TO GASTROENTEROLOGY Shaniqua Beckford MD documented in this encounterFayette County [facility] Hospital12-15-2021 History of Present illness Narrative* Nikky Henderson RT(R) - 09/02/2021 10:30 AM EST Radiology Service Progress Note PATIENT NAME: Arlet Navarro DATE OF SERVICE: September 02, 2021 TIME: 10:21 AM PATIENT IDENTITY VERIFICATION COMPLETED USING TWO (2) IDENTIFIERS: Name and Date of confirmedby patient verbally. FALL SCREENING: Has the patient had 2 falls in the last year or 1 fall with injury or currently using an Ambulatory Assistive Device (Walker, Cane, Wheelchair, Crutches, etc.)? No PATIENT GENDER DATA: Female. status: : No status: NO. PATIENT RELEVANT IMPLANT DATA REVIEWED: Yes RADIOLOGY DEPARTMENT: General X-ray: Exam(s) Completed: Upper Extremity X- Ray(s): Forearm, right PERIPHERAL IV DATA: Not applicable SIGNED BY: RT Nasra(R) September 02, 2021 10:21 AM documented in this encounterFayette County [facility] Hospital10-08-2021 History of Present illness Narrative* Paulina Zhou RT(R) - 06/26/2021 3:50 PM EDT Radiology Service Progress Note PATIENT NAME: Arlet Navarro DATE OF SERVICE: June 26, 2021 TIME: 3:50 PM PATIENT IDENTITY VERIFICATION COMPLETED USING TWO (2) IDENTIFIERS: Name and Date of confirmedby patient verbally. FALL SCREENING: Has the patient had 2 falls in the last year or 1 fall with injury or currently using an Ambulatory Assistive Device (Walker, Cane, Wheelchair, Crutches, etc.)? No PATIENT GENDER DATA: Female. status: : No status: NO. PATIENT RELEVANT IMPLANT DATA REVIEWED: Not Applicable RADIOLOGY DEPARTMENT: General X-ray: Exam(s) Completed: Chest X-Ray PERIPHERAL IV DATA: Not applicable SIGNED BY: RT Cherelle(R) June 26, 2021 3:50 PM documented in this encounterFayette County Memorial HospitalDisnew [facility] summary Author Brady Villarreal [facility] June 01, 2023 1:12pm Note Date/Time June 01, 2023 12:11pm [facility] Medical Records Department [address] [place] [address] Emergency Department Summary 06/01/23 MR#: [id number] Acct: [id number] Name: ARLET NAVARRO Rep #:[id number] : 1985 38 From: Brady Villarreal DO PCP: Dr. Ian Mon MD Status:REG ER Location: ED HPI HPI - URI History of Present Illness Chief Complaint: Shortness of Breath Narrative Narrative: 38-year-old female with recent diagnosis of influenza. Patient is not on Tamiflu. She states he was diagnosed about 5 days ago. Patient states she has had fevers and chills. She has cough and shortness of breath. Patient does nothave a history of asthma but states when she gets sick she generally gets very sick. Patient states that last night when she was sleeping her oxygen was goinginto the 70s. She supposed to be getting worked up for sleep apnea, however since she is sick she is unable to do the sleep apnea study. Not hypoxic when awake. She states she woke up a little bit lightheaded and dizzy but feels improved currently. ROS ROS ED Constitutional Constitutional ED: Reports chills and fever(s); Denies sweats Eyes Eyes: Denies blurry vision or change in vision ENT ENT ED: Reports rhinorrhea; Denies ear pain or sore throat Cardiovascular Cardiovascular: Denies chest pain, palpitations or racing heartbeat Respiratory/Chest Respiratory/Chest: Reports cough and dyspnea; Denies sputum Gastrointestinal Gastrointestinal: Denies abdominal pain, constipation, diarrhea, nausea or vomiting Genitourinary Genitourinary ED: Denies dysuria, hematuria or urinary frequency Musculoskeletal Musculoskeletal: Denies arthralgias, myalgias or neck pain Integumentary Denies abscess, Abrasions or rash Neurologic Neurologic: Denies headache(s), paresthesias or weakness Psychiatric Psychiatric: Denies anxiety, depression, suicidal ideation or suicidal thoughts Endocrine Endocrinology: Denies polydipsia or polyuria PFS PFSH Medical History Kidney disease Kidney stones Pneumonia Smoker Wheezes Home Medications omeprazole 40 mg capsule,delayed release 40 mg PO DAILY 12/09/21 [History Last Taken Unknown] azelastine 137 mcg (0.1 %) nasal spray aerosol 2 spray intranasal BID #30 mL 10/23/22 [Rx Last Taken Unknown] doxycycline monohydrate 100 mg capsule 100 mg PO BID #20 CAPSULES 10/23/22 [Rx Last Taken Unknown] promethazine 6.25 mg-codeine 10 mg/5 mL syrup 5 ml PO 4X/DAY PRN PRN cough 7 days #140 mL 10/23/22 [Rx Last Taken Unknown] albuterol sulfate 90 mcg/actuation aerosol inhaler (Ventolin HFA) 1 - 2 puff inhalation Q4H PRN PRN Wheezing #1 device 04/04/23 [Rx Last Taken Unknown] albuterol sulfate 90 mcg/actuation aerosol inhaler (Ventolin HFA) 1 - 2 puff inhalation Q4H PRN PRN Wheezing #8.5 grams 06/01/23 [Rx Last Taken Unknown] prednisone 50 mg tablet 50 mg PO DAILY #5 tabs 06/01/23 [Rx Last Taken Unknown] Allergy/AdvReac Type Severity Reaction Status Date / Time hydrocodone bitartrate Allergy Hives Verified 06/01/23 11:52 [From [place]] Family History Other Heart disease Surgical History History of hysterectomy Social History household members: none Smoking Status: Current every day smoker tobacco type: cigarettes alcohol intake: current alcohol intake frequency: other substance use type: does not use EXAM Physical Exam Const Vital Signs: 06/01/23 11:52 06/01/23 12:13 06/01/23 12:53 Temperature 97.3 F L Temperature Source Temporal Pulse Rate 107 H 103 H Respiratory Rate 22 H 18 Respiratory Effort Short of Breath Respiratory Depth Normal Respiratory Pattern Normal Blood Pressure 109/83 H Blood Pressure Mean 91 Pulse Ox 95 Oxygen Delivery Method Room Air Positive well nourished General Appearance ED: NAD; Negative for pallor HEENT Reports moist mucous membranes normocephalic and atraumatic Eyes PERRL and EOMs intact bilaterally Resp Resp Narrative: Hip neck. Auscultation: wheezes expiratory wheezes and throughout Cardio Rate: tachycardic Rhythm: regular rhythm GI non-tender Extremity normal to inspection Neuro oriented x3 and CN's II-XII intact bilaterally Sensorium / Orientation: alert Motor Exam: strength 5/5 throughout Psych mental status grossly normal Skin General Skin Exam: Negative for jaundice or pallor MDM MDM MDM Narrative Medical decision making narrative: Patient with influenza. She is outside of the treatment window. She is wheezing on exam today so I will treat her with breathing treatments and prednisone. Chest x-ray, interpretation shows no acute process. Improved with breathing treatments. I will send her home with a burst of prednisone and albuterol inhaler. Return precautions were discussed. Impression: 1. Influenza Radiography Diagnostic Testing: Clinical Impression(s) from Imaging Studies Chest X-Ray 06/01/23 12:11 IMPRESSION: Normal x-ray examination of the chest. Electronically Signed: Justice Samaniego MD at 12:36 EDT , Discharge Plan Triage Chief Complaint: Shortness of Breath ED Provider: Brady Villarreal Dx/Rx/DC Orders Instructions: ED Bronchitis with Wheezing (Adult) Prescriptions: New prednisone 50 mg tablet 50 mg PO DAILY Qty: 5 0RF albuterol sulfate [Ventolin HFA] 90 mcg/actuation HFA aerosol inhaler 1 - 2 puff inhalation Q4H PRN PRN (Reason: Wheezing) Qty: 8.5 0RF No Action omeprazole 40 mg capsule,delayed release(DR/EC) 40 mg PO DAILY doxycycline monohydrate 100 mg capsule 100 mg PO BID Qty: 20 0RF azelastine 137 mcg (0.1 %) aerosol,spray 2 spray intranasal BID Qty: 30 0RF Rx Instructions: administer into each nostril promethazine-codeine 6.25-10 mg/5 mL syrup 5 ml PO 4X/DAY PRN PRN (Reason: cough) 7 Days Qty: 140 0RF albuterol sulfate [Ventolin HFA] 90 mcg/actuation HFA aerosol inhaler 1 - 2 puff inhalation Q4H PRN PRN (Reason: Wheezing) Qty: 1 0RF Primary Care Provider: Ian Mon Referrals: Ian Mon MD [Primary Care Provider] - Disposition Disposition: Home, Self Care What to do if you have Problems For any increased pain, shortness of breath, bleeding, nausea or vomiting, chestpain, or any unexpected problems, contact your Primary Care Provider. Call [facility] ([phone]) or report to the closest Emergency Room. Call 911 if necessary. 06/01/23 1312 <Electronically signed by Brady Villarreal DO> Cosigner Signature (if applicable): CC: Dr. Ian Mon MD ~ Signed [facility] Work Phone: Evaluation note* Diagnosis Epigastric pain- Primary Abdominal pain, epigastric Gastroesophageal reflux disease, unspecified whether esophagitis present Esophageal dysphagia Dysphagia, pharyngoesophageal phase Odynophagia Dysphagia, unspecified Early satiety [facility]* Diagnosis Epigastric pain- Primary Abdominal pain, epigastric Gastroesophageal reflux disease, unspecified whether esophagitis present Esophageal dysphagia Dysphagia, pharyngoesophageal phase documented in this encounter [facility] note* Diagnosis Epigastric pain- Primary Abdominal pain, epigastric documented in this encounter [facility] noteNo assessment information availableWLicking Memorial Hospital Work Phone: Evaluation note* Diagnosis Epigastric pain Abdominal pain, epigastric Gastroesophageal reflux disease, unspecified whether esophagitis present Esophageal dysphagia Dysphagia, pharyngoesophageal phase documented in this encounter [facility] note* Diagnosis Sore throat- Primary Acute pharyngitis Swelling of right eyelid documented in this encounter [facility] note* Diagnosis Viral illness- Primary Unspecified viral infection, in conditions classified elsewhere and of unspecified site URI, acute Acute upper respiratory infections of unspecified site documented in this encounter [facility] note* Diagnosis Lower abdominal pain- Primary Abdominal pain, other specified site [facility] Rash- Primary Rash and other nonspecific skin eruption Upper respiratory symptom Other symptoms involving respiratory system and chest Suspected COVID-19 virus [facility] Pain of left heel- Primary Pain in limb [facility] Diagnosis Plantar fasciitis- Primary Plantar fascial fibromatosis Pain of left heel Pain in limb [facility]* Diagnosis Wrist injuries, right, initial encounter- Primary Abnormal x-ray Other nonspecific (abnormal) findings on radiological and other examinations of body structure [facility]* Diagnosis SOB (shortness of breath)- Primary Shortness of breath [facility]* Diagnosis Diarrhea, unspecified type- Primary Wheezing Upper respiratory tract infection, unspecified type [facility] Diagnosis Primary osteoarthritis of first carpometacarpal joint of right hand- Primary Primary localized osteoarthrosis, hand Right wrist pain Pain in joint, forearm Disorder of bone Disorder of bone and cartilage, unspecified [facility]* Diagnosis Leukocytosis, unspecified type- Primary Encounter for immunization Need for other specified prophylactic vaccination against single bacterial disease Muscle spasm Spasm of muscle [facility]* Diagnosis Forearm strain, right, initial encounter- Primary [facility] Diagnosis Encounter for gynecological examination (general) (routine) without abnormal findings- Primary Encounter for screening for human papillomavirus (HPV) Special screening examination for human papillomavirus (HPV) Pelvic pain in female Unspecified symptom associated with female genital organs Encounter for screening mammogram for malignant neoplasm of breast Other screening mammogram [facility] Diagnosis Leukocytosis, unspecified type- Primary [facility] Diagnosis Bleeding hemorrhoid Unspecified hemorrhoids with other complication [facility]* Diagnosis Ovarian cyst, left- Primary Other and unspecified ovarian cyst [facility] Diagnosis Sore throat- Primary Acute pharyngitis URI, acute Acute upper respiratory infections of unspecified site [facility]* Diagnosis Epigastric pain Abdominal pain, epigastric Gastroesophageal reflux disease, unspecified whether esophagitis present [facility]* Diagnosis Complex cyst of left ovary- Primary [facility]* Diagnosis Pelvic pain in female- Primary Unspecified symptom associated with female genital organs Levator spasm Abnormal involuntary movements Family history of malignant neoplasm of breast documented [facility]* Diagnosis Viral URI with cough- Primary Acute upper respiratory infections of unspecified site documented [facility]* Diagnosis Tooth ache- Primary documented [facility]* Diagnosis Vomiting and diarrhea- Primary Vomiting alone [facility]* Diagnosis Fatigue, unspecified type- Primary SOB (shortness of breath) Shortness of breath Generalized weakness Other malaise and fatigue Rhinorrhea Other diseases of nasal cavity and sinuses Snoring Other dyspnea and respiratory abnormality Daytime somnolence Hypersomnia, unspecified Witnessed apneic spells Apnea Nasal congestion Other diseases of nasal cavity and sinuses documented [facility]* Diagnosis Abnormal CBC- Primary Other abnormal blood chemistry documented in this encounter [facility] note* Diagnosis Daytime somnolence- Primary Hypersomnia, unspecified documented [facility]* Diagnosis Abrasion of right hand, initial encounter- Primary Chronic wrist pain, right documented in this encounter [facility] note* Diagnosis Epigastric pain Abdominal pain, epigastric Gastroesophageal reflux disease, unspecified whether esophagitis present documented [facility]* Diagnosis Carpal tunnel syndrome of right wrist- Primary Carpal tunnel syndrome Ulnar neuropathy at elbow of right upper extremity documented in this encounter [facility] note* Diagnosis ZOFIA (obstructive sleep apnea)- Primary Obstructive sleep apnea (adult) (pediatric) Hypoxia Hypoxemia documented [facility]* Diagnosis Epigastric pain Abdominal pain, epigastric Gastroesophageal reflux disease, unspecified whether esophagitis present documented [facility] this [facility]* Diagnosis Pelvic pain in female Unspecified symptom associated with female genital organs documented [facility]* Diagnosis Ovarian cyst, left Other and unspecified ovarian cyst [facility]* Diagnosis URI, acute- Primary Acute upper respiratory infections of unspecified site Nausea and vomiting, unspecified vomiting type [facility]* Diagnosis Anxiety and depression- Primary Dysthymic disorder Watery eyes Epiphora, unspecified as to cause [facility]* Diagnosis Bilateral hand numbness- Primary Disturbance of skin sensation documented [facility]* Diagnosis Ulnar neuropathy at elbow of right upper extremity documented [facility] this [facility]* Diagnosis Acute otitis media, left- Primary Unspecified otitis media URI, acute Acute upper respiratory infections of unspecified site documented [facility] this [facility]* Diagnosis Sore throat- Primary Acute pharyngitis Wheezing [facility]* Diagnosis Carpal tunnel syndrome of right wrist- Primary Carpal tunnel syndrome 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 Lesion of ulnar nerve Carpal tunnel syndrome on right Carpal tunnel syndrome [facility]* Diagnosis 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 Lesion of ulnar nerve Carpal tunnel syndrome on right Carpal tunnel syndrome Ulnar neuropathy of right upper extremity Lesion of ulnar nerve Carpal tunnel syndrome on right Carpal tunnel syndrome [facility]* Diagnosis Pre-op evaluation- Primary Preoperative examination, unspecified ZOFIA (obstructive sleep apnea) Obstructive sleep apnea (adult) (pediatric) Gastroesophageal reflux disease, unspecified whether esophagitis present Class 2 obesity without serious comorbidity with body mass index (BMI) of 37.0 to 37.9 in adult, unspecified obesity type Ulnar neuropathy of right upper extremity Lesion of ulnar nerve Carpal tunnel syndrome on right Carpal tunnel syndrome documented [facility]* Diagnosis Carpal tunnel syndrome of right wrist- Primary Carpal tunnel syndrome 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 Lesion of ulnar nerve Carpal tunnel syndrome on right Carpal tunnel syndrome [facility]* Diagnosis Ulnar neuropathy at elbow of right upper extremity [facility]* Diagnosis Epigastric pain Abdominal pain, epigastric Gastroesophageal reflux disease, unspecified whether esophagitis present documented [facility] this [facility]* Diagnosis 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 Lesion of ulnar nerve Carpal tunnel syndrome on right Carpal tunnel syndrome [facility]* Diagnosis Watery eyes Epiphora, unspecified as to cause [facility]* Diagnosis Carpal tunnel syndrome of right wrist- Primary Carpal tunnel syndrome Ulnar neuropathy at elbow of right upper extremity documented in this encounter [facility] note* Diagnosis Pain of left heel Pain in limb Pre-op evaluation- Primary Preoperative examination, unspecified ZOFIA (obstructive sleep apnea) Obstructive sleep apnea (adult) (pediatric) Gastroesophageal reflux disease, unspecified whether esophagitis present Class 2 obesity without serious comorbidity with body mass index (BMI) of 37.0 to 37.9 in adult, unspecified obesity type documented [facility] this [facility]* Diagnosis Gastroesophageal reflux disease, unspecified whether esophagitis present Esophageal dysphagia Dysphagia, pharyngoesophageal phase Odynophagia Dysphagia, unspecified Early satiety Pre-op evaluation- Primary Preoperative examination, unspecified ZOFIA (obstructive sleep apnea) Obstructive sleep apnea (adult) (pediatric) Gastroesophageal reflux disease, unspecified whether esophagitis present Class 2 obesity without serious comorbidity with body mass index (BMI) of 37.0 to 37.9 in adult, unspecified obesity type documented in this encounter [facility] note* Diagnosis Wheezing Cough Pre-op evaluation- Primary Preoperative examination, unspecified ZOFIA (obstructive sleep apnea) Obstructive sleep apnea (adult) (pediatric) Gastroesophageal reflux disease, unspecified whether esophagitis present Class 2 obesity without serious comorbidity with body mass index (BMI) of 37.0 to 37.9 in adult, unspecified obesity type documented [facility] this [facility]* Diagnosis Numbness and tingling Disturbance of skin sensation Subcutaneous nodule of right forearm Pre-op evaluation- Primary Preoperative examination, unspecified ZOFIA (obstructive sleep apnea) Obstructive sleep apnea (adult) (pediatric) Gastroesophageal reflux disease, unspecified whether esophagitis present Class 2 obesity without serious comorbidity with body mass index (BMI) of 37.0 to 37.9 in adult, unspecified obesity type documented in this encounter [facility] note* Diagnosis Pre-op evaluation- Primary Preoperative examination, unspecified ZOFIA (obstructive sleep apnea) Obstructive sleep apnea (adult) (pediatric) Gastroesophageal reflux disease, unspecified whether esophagitis present Class 2 obesity without serious comorbidity with body mass index (BMI) of 37.0 to 37.9 in adult, unspecified obesity type Recurrent ventral hernia- Primary Incisional hernia without mention of obstruction or gangrene Ventral hernia without obstruction or gangrene Ventral hernia, unspecified, without mention of obstruction or gangrene documented in this encounter [facility] note* Diagnosis Pre-op evaluation- Primary Preoperative examination, unspecified ZOFIA (obstructive sleep apnea) Obstructive sleep apnea (adult) (pediatric) Gastroesophageal reflux disease, unspecified whether esophagitis present Class 2 obesity without serious comorbidity with body mass index (BMI) of 37.0 to 37.9 in adult, unspecified obesity type Postoperative pain Other acute postoperative pain documented in this encounter [facility] note* Diagnosis Pre-op evaluation- Primary Preoperative examination, unspecified ZOFIA (obstructive sleep apnea) Obstructive sleep apnea (adult) (pediatric) Gastroesophageal reflux disease, unspecified whether esophagitis present Class 2 obesity without serious comorbidity with body mass index (BMI) of 37.0 to 37.9 in adult, unspecified obesity type Watery eyes Epiphora, unspecified as to cause documented in this encounter [facility] note* Diagnosis Pre-op evaluation- Primary Preoperative examination, unspecified ZOFIA (obstructive sleep apnea) Obstructive sleep apnea (adult) (pediatric) Gastroesophageal reflux disease, unspecified whether esophagitis present Class 2 obesity without serious comorbidity with body mass index (BMI) of 37.0 to 37.9 in adult, unspecified obesity type Epigastric pain Abdominal pain, epigastric Gastroesophageal reflux disease, unspecified whether esophagitis present documented in this encounter [facility] note* Diagnosis Pre-op evaluation- Primary Preoperative examination, unspecified ZOFIA (obstructive sleep apnea) Obstructive sleep apnea (adult) (pediatric) Gastroesophageal reflux disease, unspecified whether esophagitis present Class 2 obesity without serious comorbidity with body mass index (BMI) of 37.0 to 37.9 in adult, unspecified obesity type Recurrent ventral hernia- Primary Incisional hernia without mention of obstruction or gangrene documented in this encounter [facility] note* Diagnosis Pre-op evaluation- Primary Preoperative examination, unspecified ZOFIA (obstructive sleep apnea) Obstructive sleep apnea (adult) (pediatric) Gastroesophageal reflux disease, unspecified whether esophagitis present Class 2 obesity without serious comorbidity with body mass index (BMI) of 37.0 to 37.9 in adult, unspecified obesity type Postoperative pain Other acute postoperative pain documented in this encounter [facility] note* Diagnosis Pre-op evaluation- Primary Preoperative examination, unspecified ZOFIA (obstructive sleep apnea) Obstructive sleep apnea (adult) (pediatric) Gastroesophageal reflux disease, unspecified whether esophagitis present Class 2 obesity without serious comorbidity with body mass index (BMI) of 37.0 to 37.9 in adult, unspecified obesity type Sore throat- Primary Acute pharyngitis URI, acute Acute upper respiratory infections of unspecified site Acute cough Acute cough documented in this encounter [facility] note* Diagnosis Pre-op evaluation- Primary Preoperative examination, unspecified ZOFIA (obstructive sleep apnea) Obstructive sleep apnea (adult) (pediatric) Gastroesophageal reflux disease, unspecified whether esophagitis present Class 2 obesity without serious comorbidity with body mass index (BMI) of 37.0 to 37.9 in adult, unspecified obesity type Acute cough documented in this encounter [facility] note* Diagnosis Pre-op evaluation- Primary Preoperative examination, unspecified ZOFIA (obstructive sleep apnea) Obstructive sleep apnea (adult) (pediatric) Gastroesophageal reflux disease, unspecified whether esophagitis present Class 2 obesity without serious comorbidity with body mass index (BMI) of 37.0 to 37.9 in adult, unspecified obesity type URI, acute- Primary Acute upper respiratory infections of unspecified site documented in this encounter [facility] note* Diagnosis Pre-op evaluation- Primary Preoperative examination, unspecified ZOFIA (obstructive sleep apnea) Obstructive sleep apnea (adult) (pediatric) Gastroesophageal reflux disease, unspecified whether esophagitis present Class 2 obesity without serious comorbidity with body mass index (BMI) of 37.0 to 37.9 in adult, unspecified obesity type Influenza-like symptoms- Primary Other general symptoms Wheezing Influenza-like symptoms Other general symptoms Wheezing documented in this encounter [facility] note* Diagnosis Pre-op evaluation- Primary Preoperative examination, unspecified ZOFIA (obstructive sleep apnea) Obstructive sleep apnea (adult) (pediatric) Gastroesophageal reflux disease, unspecified whether esophagitis present Class 2 obesity without serious comorbidity with body mass index (BMI) of 37.0 to 37.9 in adult, unspecified obesity type Influenza-like symptoms Other general symptoms Wheezing documented in this encounter [facility] note* Diagnosis Pre-op evaluation- Primary Preoperative examination, unspecified ZOFIA (obstructive sleep apnea) Obstructive sleep apnea (adult) (pediatric) Gastroesophageal reflux disease, unspecified whether esophagitis present Class 2 obesity without serious comorbidity with body mass index (BMI) of 37.0 to 37.9 in adult, unspecified obesity type Epigastric pain Abdominal pain, epigastric Gastroesophageal reflux disease, unspecified whether esophagitis present [facility] Pre-op evaluation- Primary Preoperative examination, unspecified ZOFIA (obstructive sleep apnea) Obstructive sleep apnea (adult) (pediatric) Gastroesophageal reflux disease, unspecified whether esophagitis present Class 2 obesity without serious comorbidity with body mass index (BMI) of 37.0 to 37.9 in adult, unspecified obesity type Encounter for medication refill- Primary Issue of repeat prescriptions Viral illness Unspecified viral infection, in conditions classified elsewhere and of unspecified site Encounter to obtain excuse from work documented in this encounter [facility] note* Diagnosis Pre-op evaluation- Primary Preoperative examination, unspecified ZOFIA (obstructive sleep apnea) Obstructive sleep apnea (adult) (pediatric) Gastroesophageal reflux disease, unspecified whether esophagitis present Class 2 obesity without serious comorbidity with body mass index (BMI) of 37.0 to 37.9 in adult, unspecified obesity type Epigastric pain Abdominal pain, epigastric Gastroesophageal reflux disease, unspecified whether esophagitis present documented in this encounter [facility] note* Diagnosis Pre-op evaluation- Primary Preoperative examination, unspecified ZOFIA (obstructive sleep apnea) Obstructive sleep apnea (adult) (pediatric) Gastroesophageal reflux disease, unspecified whether esophagitis present Class 2 obesity without serious comorbidity with body mass index (BMI) of 37.0 to 37.9 in adult, unspecified obesity type SOB (shortness of breath)- Primary Shortness of breath Wheezing SOB (shortness of breath) Shortness of breath Wheezing documented in this encounter [facility] note* Diagnosis Pre-op evaluation- Primary Preoperative examination, unspecified ZOFIA (obstructive sleep apnea) Obstructive sleep apnea (adult) (pediatric) Gastroesophageal reflux disease, unspecified whether esophagitis present Class 2 obesity without serious comorbidity with body mass index (BMI) of 37.0 to 37.9 in adult, unspecified obesity type SOB (shortness of breath) Shortness of breath Wheezing documented in this encounter [facility] note* Diagnosis Pre-op evaluation- Primary Preoperative examination, unspecified ZOFIA (obstructive sleep apnea) Obstructive sleep apnea (adult) (pediatric) Gastroesophageal reflux disease, unspecified whether esophagitis present Class 2 obesity without serious comorbidity with body mass index (BMI) of 37.0 to 37.9 in adult, unspecified obesity type Watery eyes Epiphora, unspecified as to cause [facility] Pre-op evaluation- Primary Preoperative examination, unspecified ZOFIA (obstructive sleep apnea) Obstructive sleep apnea (adult) (pediatric) Gastroesophageal reflux disease, unspecified whether esophagitis present Class 2 obesity without serious comorbidity with body mass index (BMI) of 37.0 to 37.9 in adult, unspecified obesity type Epigastric pain Abdominal pain, epigastric Gastroesophageal reflux disease, unspecified whether esophagitis present [facility] Additional [facility]ructions Plenty of fluids and rest. Tylenol and Motrin for body aches and chills. Follow-up with your doctor if not improving. Your chest x-ray was normal. Your COVID test was negative.[facility] Work Phone: Hospital Discharge instructions Additional Instructions Please take your medication as directed to help resolve your infection and return to the ER should you have any further concerns or worsening of symptomsWLicking [facility] Hospital Work Phone: Hospital Discharge instructions Additional Instructions Ice to your low back and tailbone. Percocet for more severe pain and Motrin for pain and inflammation. Sit on an air donut or a pillow. Follow-up with your doctor if not improving. [facility] Work Phone: Hospital Discharge instructions Additional Instructions Follow-up with urology as soon as possible. Return with fever, increased pain, new or worsening symptoms.[facility] Work Phone: Hospital Discharge instructions Additional Instructions Follow-up with your doctor in outpatient setting. Take steroids as prescribed. Use inhalers and breathing treatments at home as prescribed. Return with any other concerns. Your blood work did not show any acute findings here today. You likely have a viral illness causing your symptoms.[facility] Work Phone: Reason for referral (narrative)* Diagnostic Procedure Only (Urgent) - Authorized Specialty Diagnoses / Procedures Referred By Vicente moran Referred To Contact US IMAGING Diagnoses Epigastric pain Procedures US ABD RT UPPER QUADRANT US ABDOMINAL REAL TIME W/IMAGE LIMITED Shaniqua Beckford MD [address] [place] [address] Us Imaging Referral ID Status Reason Start Date Expiration Date Visits Requested Visits Authorized [id number] Authorized Auto-Generat ed Referral 12/07/2021 01/06/2023 1 1 * Consult, Test, Treat (Routine) - Authorized Specialty Diagnoses / Procedures Referred By Contac t Referred To Contact Gastroenterology Diagnoses Esophageal dysphagia Odynophagia Early satiety Procedures CONSULT TO GASTROENTEROLOGY OFFICE/OUTPATIENT NEW HIGH MDM 60-74 MINUTES Shaniqua Beckford MD [address] [place] [address] Referral ID Status Reason Start Date Expiration Date Visits Requested Visits Authorized [id number] Authorized PCP Requested Referral 12/07/2021 12/07/2022 1 1 * Diagnostic Procedure Only (Routine) - Closed Specialty Diagnoses / Procedures [facility] To Contact XR IMAGING Diagnoses Gastroesophageal reflux disease, unspecified whether esophagitis present Esophageal dysphagia Odynophagia Early satiety Procedures XR ABDOMEN 1V SUPINE RADIOLOGIC EXAM ABDOMEN 1 VIEW Shaniqua Beckford MD [address] [place] [address] Xr Imaging Referral ID Status Reason Start Date Expiration Date V isits Requested Visits Authorized [id number] Closed Auto-Generate d Referral 12/07/2021 01/06/2023 1 1 [facility] for referral (narrative)* Diagnostic Procedure Only (Urgent) - Closed Specialty Diagnoses / Procedures [facility] Referred To Contact US IMAGING Diagnoses Epigastric pain Gastroesophageal reflux disease, unspecified whether esophagitis present Esophageal dysphagia Procedures US ABD RT UPPER QUADRANT US ABDOMINAL REAL TIME W/IMAGE LIMITED Shaniqua Beckford MD [address] [place] [address] Us Imaging Referral ID Status Reason Start Date Expiration Date V isits Requested Visits Authorized [id number] Closed Auto-Generate d Referral 12/08/2021 01/07/2023 1 1 [facility] for referral (narrative)* Diagnostic Procedure Only (Urgent) - Closed Specialty Diagnoses / Procedures Referred By Contac t Referred To Contact US IMAGING Diagnoses Epigastric pain Gastroesophageal reflux disease, unspecified whether esophagitis present Esophageal dysphagia Procedures US ABD RT UPPER QUADRANT US ABDOMINAL REAL TIME W/IMAGE LIMITED Shaniqua Beckford MD [address] [place] [address] Us Imaging Referral ID Status Reason Start Date Expiration Date V isits Requested Visits Authorized [id number] Closed Auto-Generate d Referral 12/08/2021 01/07/2023 1 1 [facility] for referral (narrative)* Diagnostic Procedure Only (Routine) - Authorized Specialty Diagnoses / Procedures [facility] Referred To Contact BR IMAGING Diagnoses Encounter for screening mammogram for malignant neoplasm of breast Procedures ARACELI SCREENING W HOLILS SCREENING DIGITAL BREAST TOMOSYNTHESIS BI SCREENING MAMMOGRAPHY BI 2-VIEW BREAST INC CAD Alyssa Cano APRN.CARDIAC REHABILITATION PROGRAM DIRECTOR [address] [place] [address] Br Imaging [address] [place] [address] Referral ID Status Reason Start Date Expiration Date Visits Requested Visits Authorized [id number] Authorized Auto-Generat ed Referral 2 09/01/2023 1 1 * Diagnostic Procedure Only (Routine) - Authorized Specialty Diagnoses / Procedures Referred By Jonatanac t Referred To Contact US IMAGING Diagnoses Pelvic pain in female Procedures US FEMALE PELVIS TRANSVAG US TRANSVAGINAL Alyssa Cano APRN.CARDIAC REHABILITATION PROGRAM DIRECTOR [address] [place] [address] Us Imaging Referral ID Status Reason Start Date Expiration Date Visits Requested Visits Authorized [id number] Authorized Auto-Generat ed Referral 2 09/01/2023 1 1 [facility] for referral (narrative)* Diagnostic Procedure Only (Routine) - Pending Review Specialty Diagnoses / Procedures Referred By Contac t Referred To Contact US IMAGING Diagnoses Ovarian cyst, left Procedures US FEMALE PELVIS TRANSVAG US TRANSVAGINAL Alyssa Cano APRN.CARDIAC REHABILITATION PROGRAM DIRECTOR [address] [place] [address] Us Imaging Referral ID Status Reason Start Date Expiration Date Visits Requested Visits Authorized [id number] Pending Review Auto-Generat ed Referral 09/15/2023 1 1 [facility] for referral (narrative)* Diagnostic Procedure Only (Routine) - Pending Review Specialty Diagnoses / Procedures [facility] Referred To Contact US IMAGING Diagnoses Complex cyst of left ovary Procedures US FEMALE PELVIS TRANSVAG US TRANSVAGINAL Alyssa Cano APRN.CARDIAC REHABILITATION PROGRAM DIRECTOR [address] [place] [address] Us Imaging Referral ID Status Reason Start Date Expiration Date Visits Requested Visits Authorized [id number] Pending Review Auto-Generat ed Referral 10/01/2022 10/31/2023 1 1 [facility] for referral (narrative)* Outpatient Procedure (Routine) - Pending Review Specialty Diagnoses / Procedures [facility] Diagnoses SOB (shortness of breath) Procedures SPIROMETRY - BASELINE AND POST DILATOR BRNCDILAT RSPSE SPMTRY PRE&POST-BRNCDILAT ADMN Tootie Mujica APRN.CARDIAC REHABILITATION PROGRAM DIRECTOR [address] [place] [address] [facility] [address] [place] [address] Referral ID Status Reason Start Date Expiration Date Visits Requested Visits Authorized [id number] Pending Review Auto-Generat ed Referral 12/01/2022 12/31/2023 1 1 [facility] for referral (narrative)* Diagnostic Procedure Only (Routine) - Pending Review Specialty Diagnoses / Procedures Referred By Contact Referred To Contact [facility] Diagnoses Daytime somnolence Procedures HOME SLEEP APNEA TEST (HSAT) SLEEP STD AIRFLOW HRT RATE&O2 SAT EFFORT UNATT Shaniqua Beckford MD [address] [place] [address] [facility] [address] [place] [address] Referral ID Status Reason Start Date Expiration Date Visits Requested Visits Authorized [id number] Pending Review Auto-Generat ed Referral 01/20/2023 01/20/2024 1 1 [facility] for referral (narrative)* Diagnostic Procedure Only (Routine) - Pending Review Specialty Diagnoses / Procedures Referred By Vicente moran Referred To Contact US IMAGING Diagnoses Ulnar neuropathy at elbow of right upper extremity Procedures US ELBOW RIGHT US LMTD JOINT/OTH NONVASC XTR STRUX R-T W/IMG Jose Bryant MD [address] [place] [address] Us Imaging Referral ID Status Reason Start Date Expiration Date Visits Requested Visits Authorized [id number] Pending Review Auto-Generat ed Referral 01/27/2023 02/26/2024 1 1 * Diagnostic Procedure Only (Routine) - Pending Review Specialty Diagnoses / Procedures Referred By Contgiorgi t Referred To Contact US IMAGING Diagnoses Carpal tunnel syndrome of right wrist Procedures US WRIST RIGHT US COMPL JOINT R-T W/IMAGE DOCUMENTATION Jose Bryant MD [address] [place] [address] Us Imaging Referral ID Status Reason Start Date Expiration Date Visits Requested Visits Authorized [id number] Pending Review Auto-Generat ed Referral 01/27/2023 02/26/2024 1 1 [facility] for referral (narrative)* Diagnostic Procedure Only (Routine) - Closed Specialty Diagnoses / Procedures Referred By Contac t Referred To Contact US IMAGING Diagnoses Pelvic pain in female Procedures US FEMALE PELVIS TRANSVAG US TRANSVAGINAL Alyssa Cano APRN.CARDIAC REHABILITATION PROGRAM DIRECTOR [address] [place] [address] [place] [address] Referral ID Status Reason Start Date Expiration Date V isits Requested Visits Authorized [id number] Closed Auto-Generate d Referral 08/02/2022 09/01/2023 1 1 [facility] for referral (narrative)* Diagnostic Procedure Only (Routine) - Closed Specialty Diagnoses / Procedures Referred By Contac t Referred To Contact US IMAGING Diagnoses Ovarian cyst, left Procedures US FEMALE PELVIS TRANSVAG US TRANSVAGINAL Alyssa Cano APRN.CARDIAC REHABILITATION PROGRAM DIRECTOR [address] [place] [address] [place] [address] Referral ID Status Reason Start Date Expiration Date V isits Requested Visits Authorized [id number] Closed Auto-Generate d Referral 08/16/2022 09/15/2023 1 1 [facility] for referral (narrative)* Diagnostic Procedure Only (Routine) - Closed Specialty Diagnoses / Procedures Referred By Contac t Referred To Contact US IMAGING Diagnoses Ulnar neuropathy at elbow of right upper extremity Procedures US ELBOW RIGHT US LMTD JOINT/OTH NONVASC XTR STRUX R-T W/IMG Jose Bryant MD [address] [place] [address] [place] [address] Referral ID Status Reason Start Date Expiration Date V isits Requested Visits Authorized [id number] Closed Auto-Generate d Referral 01/27/2023 02/26/2024 1 1 [facility] for referral (narrative)* Diagnostic Procedure Only (Urgent) - Closed Specialty Diagnoses / Procedures Referred By Contac t Referred To Contact XR IMAGING Diagnoses Pain of left heel Procedures XR CALCANEUS 2V AXIAL/LAT LEFT RADEX CALCANEUS MINIMUM 2 VIEWS Lia Reyes APRN.CARDIAC REHABILITATION PROGRAM DIRECTOR [address] [place] [id number] [place] [address] Referral ID Status Reason Start Date Expiration Date V isits Requested Visits Authorized [id number] Closed Auto-Generate d Referral 05/05/2022 06/04/2023 1 1 [facility] for referral (narrative)* Diagnostic Procedure Only (Routine) - Closed Specialty Diagnoses / Procedures Referred By Contac t Referred To Contact XR IMAGING Diagnoses Gastroesophageal reflux disease, unspecified whether esophagitis present Esophageal dysphagia Odynophagia Early satiety Procedures XR ABDOMEN 1V SUPINE RADIOLOGIC EXAM ABDOMEN 1 VIEW Shaniqua Beckford MD [address] [place] [address] [place] [address] Referral ID Status Reason Start Date Expiration Date V isits Requested Visits Authorized [id number] Closed Auto-Generate d Referral 12/07/2021 01/06/2023 1 1 [facility] for referral (narrative)* Diagnostic Procedure Only (Routine) - Closed Specialty Diagnoses / Procedures Referred By Contac t Referred To Contact XR IMAGING Diagnoses Numbness and tingling Subcutaneous nodule of right forearm Procedures XR FOREARM GENERAL 2V AP/LAT RIGHT X-RAY FOREARM PodlogTootie chiang APRN.CARDIAC REHABILITATION PROGRAM DIRECTOR [address] [place] [address] [place] [address] Referral ID Status Reason Start Date Expiration Date V isits Requested Visits Authorized [id number] Closed Auto-Generate d Referral 09/02/2021 10/02/2022 1 1 [facility] for referral (narrative)No reason for referral [facility]: Reason for visit Narrative* Diagnostic Procedure Only (Urgent) - Closed Specialty Diagnoses / Procedures Referred By Contac t Referred To Contact US IMAGING Diagnoses Epigastric pain Gastroesophageal reflux disease, unspecified whether esophagitis present Esophageal dysphagia Procedures US ABD RT UPPER QUADRANT US ABDOMINAL REAL TIME W/IMAGE LIMITED Shaniqua Beckford MD [address] [place] [address] Us Imaging Referral ID Status Reason Start Date Expiration Date V isits Requested Visits Authorized [id number] Closed Auto-Generate d Referral 12/08/2021 01/07/2023 1 1 [facility] for visit Narrative* Diagnostic Procedure Only (Routine) - Closed Specialty Diagnoses / Procedures Referred By Contac t Referred To Contact US IMAGING Diagnoses Ulnar neuropathy at elbow of right upper extremity Procedures US ELBOW RIGHT US LMTD JOINT/OTH NONVASC XTR STRUX R-T W/IMG Jose Bryant MD [address] [place] [address] [place] [address] Referral ID Status Reason Start Date Expiration Date V isits Requested Visits Authorized [id number] Closed Auto-Generate d Referral 01/27/2023 02/26/2024 1 1 [facility] for visit Narrative* Diagnostic Procedure Only (Urgent) - Closed Specialty Diagnoses / Procedures Referred By Contac t Referred To Contact XR IMAGING Diagnoses Finger infection Procedures XR DIGIT GENERAL 3V FRONTAL/LAT/OBL RIGHT RADEX FINGR MINIMUM 2 VIEWS Abe Calzada APRN.CNP [address] [place] [address] [place] [address] Referral ID Status Reason Start Date Expiration Date V isits Requested Visits Authorized [id number] Closed Auto-Generate d Referral 10/10/2023 11/08/2024 1 1 [facility] for visit Narrative* Diagnostic Procedure Only (Urgent) - Closed Specialty Diagnoses / Procedures Referred By Contac t Referred To Contact XR IMAGING Diagnoses Pain of left heel Procedures XR CALCANEUS 2V AXIAL/LAT LEFT RADEX CALCANEUS MINIMUM 2 VIEWS Lia Reyes REAL ESTATE LOAN PROCESSOR.CARDIAC REHABILITATION PROGRAM DIRECTOR [address] [place] [address] [place] [address] Referral ID Status Reason Start Date Expiration Date V isits Requested Visits Authorized [id number] Closed Auto-Generate d Referral 05/05/2022 06/04/2023 1 1 [facility] for visit Narrative* Diagnostic Procedure Only (Urgent) - Closed Specialty Diagnoses / Procedures Referred By Contac t Referred To Contact XR IMAGING Diagnoses Wrist injuries, right, initial encounter Procedures XR WRIST GENERAL 3V PA/LAT/OBL RIGHT RADEX WRIST COMPLETE MINIMUM 3 VIEWS Abe Calzada REAL ESTATE LOAN PROCESSOR.CARDIAC REHABILITATION PROGRAM DIRECTOR [address] [place] [address] [place] [address] Referral ID Status Reason Start Date Expiration Date V isits Requested Visits Authorized [id number] Closed Auto-Generate d Referral 06/07/2022 07/07/2023 1 1 [facility] for visit Narrative* Diagnostic Procedure Only (Routine) - Closed Specialty Diagnoses / Procedures Referred By Contac t Referred To Contact XR IMAGING Diagnoses Gastroesophageal reflux disease, unspecified whether esophagitis present Esophageal dysphagia Odynophagia Early satiety Procedures XR ABDOMEN 1V SUPINE RADIOLOGIC EXAM ABDOMEN 1 VIEW Shaniqua Beckford MD [address] [place] [address] [place] [address] Referral ID Status Reason Start Date Expiration Date V isits Requested Visits Authorized [id number] Closed Auto-Generate d Referral 12/07/2021 01/06/2023 1 1 [facility] for visit Narrative* Diagnostic Procedure Only (Routine) - Closed Specialty Diagnoses / Procedures Referred By Contac t Referred To Contact XR IMAGING Diagnoses Numbness and tingling Subcutaneous nodule of right forearm Procedures XR FOREARM GENERAL 2V AP/LAT RIGHT X-RAY FOREARM PodlogTootie chiang REAL ESTATE LOAN PROCESSOR.CARDIAC REHABILITATION PROGRAM DIRECTOR [address] [place] [address] [place] [address] Referral ID Status Reason Start Date Expiration Date V isits Requested Visits Authorized [id number] Closed Auto-Generate d Referral 09/02/2021 10/02/2022 1 1 [facility] Summary Purpose Family History No Family History Records Found Relationship Condition Age at Onset Recorded Date/T katelyn Not Specified Cardiac disease Unknown Relationship Condition Age at Onset Recorded Date/T katelyn mother Chronic obstructive pulmonary disease Unk nown Malignant neoplasm of lung Unknown Advance Directives No Advanced Directives Records Found Advance Directive Response Recorded Date/ Time Advance Directives No December 30, 2 015 10:05am Living Will No December 09, 2021 3:31pm Power of Paraprofessional Interpreter No December 09 3:31pm Advance Directive Response Recorded Date/ Time Advance Directives No December 30 015 10:05am Living Will No January 26, 2022 1 :46pm Power of Paraprofessional Interpreter No January 26, 2022 1:46pm Advance Directive Response Recorded Date/ Time Advance Directives No December 30 015 10:05am Living Will No June 19 3:35pm Power of Paraprofessional Interpreter No June 19 022 3:35pm Advance Directive Response Recorded Date/ Time Advance Directives No December 30 015 9:05am Living Will No October 02 1:08pm Power of Paraprofessional Interpreter No October 02, 2022 1:08pm Advance Directive Response Recorded Date/ Time Advance Directives No December 30 2 015 9:05am Living Will No October 22 11:32pm Power of Paraprofessional Interpreter No October 22, 2022 11:32pm Advance Directive Response Recorded Date/ Time Advance Directives No December 30 015 10:05am Living Will No April 04, 2023 2:47pm Power of Paraprofessional Interpreter No April 04 2:47pm Advance Directive Response Recorded Date/ Time Advance Directives No December 30 015 10:05am Living Will No June 01, 2023 12:53pm Power of Paraprofessional Interpreter No May 12:53pm Advance Directive Response Recorded Date/ Time Advance Directives No December 30 2 015 9:05am Living Will No August 06 023 5:24pm Power of Paraprofessional Interpreter No August 06, 2023 5:24pm Advance Directive Response Recorded Date/ Time Advance Directives No December 30, 2 015 9:05am Living Will No October 03 8:53pm Power of Paraprofessional Interpreter No October 03, 2023 8:53pm Advance Directive Response Recorded Date/ Time Advance Directives No December 30, 2 015 9:05am Living Will No October 10 2:26pm Power of Paraprofessional Interpreter No October 10, 2023 2:26pm Advance Directive Response Recorded Date/ Time Advance Directives No December 30, 2 015 10:05am Living Will No December 17, 2023 3:28pm Power of Paraprofessional Interpreter No December 16 3:28pm Advance Directive Response Recorded Date/ Time Living Will No September 28 1:16pm Do you have a Healthcare Power of Paraprofessional Interpreter? No September 28, 2024 1:16pm Living Will No October 12 6:43pm Do you have a Healthcare Power of Paraprofessional Interpreter? No October 12, 2024 6:43pm Living Will No October 24 11:25pm Do you have a Healthcare Power of Paraprofessional Interpreter? No October 24, 2024 11:25pm Do you have a Healthcare Power of Paraprofessional Interpreter? No January 11, 2025 6:11pm Advance Directives No December 30 015 10:05am Advance Directive Response Recorded Date/ Time Do you have a Healthcare Power of Paraprofessional Interpreter? No February 12, 2025 5:20pm Living Will No October 24 11:25pm Do you have a Healthcare Power of Paraprofessional Interpreter? No October 24, 2024 11:25pm Do you have a Healthcare Power of Paraprofessional Interpreter? No January 11, 2025 6:11pm Advance Directives No December 30, 2 015 10:05am Reason for Referral Specialty Diagnoses / Procedures Referred By Contac t Referred To Contact CT IMAGING Diagnoses Epigastric pain Procedures CT ABD/PEL W IVCON CT ABD & PELVIS W/CONTRAST Shaniqua Beckford MD [address] [place] [address] Ct Imaging Referral ID Status Reason Start Date Expiration Date Visits Requested Visits Authorized [id number] Pending Review Auto-Genera betsey Referral Patient Cleared - Admin/Chair man/Directo r advise to proceed 12/09/2021 01/08/2023 1 1 Specialty Diagnoses / Procedures Referred By Contac t Referred To Contact Podiatry Diagnoses Pain of left heel Procedures CONSULT TO PODIATRY OFFICE/OUTPATIENT [facility] 60-74 MINUTES Lia Reyes APRN.CARDIAC REHABILITATION PROGRAM DIRECTOR [address] [place] [address] Referral ID Status Reason Start Date Expiration Date Visits Requested Visits Authorized [id number] Authorized PCP Requested Referral 05/05/2022 05/05/2023 1 1 Specialty Diagnoses / Procedures Referred By Contac t Referred To Contact XR IMAGING Diagnoses Pain of left heel Procedures XR CALCANEUS 2V AXIAL/LAT LEFT RADEX CALCANEUS MINIMUM 2 VIEWS Lia Reyes APRN.CARDIAC REHABILITATION PROGRAM DIRECTOR [address] [place] [address] Xr Imaging Referral ID Status Reason Start Date Expiration Date V isits Requested Visits Authorized [id number] Closed Auto-Generate d Referral 05/05/2022 06/04/2023 1 1 Specialty Diagnoses / Procedures Referred By Contac t Referred To Contact Orthopedics Diagnoses Abnormal x-ray Procedures CONSULT TO ORTHOPAEDICS OFFICE/OUTPATIENT [facility] 60-74 MINUTES Abe Calzada APRN.CARDIAC REHABILITATION PROGRAM DIRECTOR [address] [place] [address] Referral ID Status Reason Start Date Expiration Date Visits Requested Visits Authorized [id number] Authorized PCP Requested Referral 06/07/2022 06/07/2023 1 1 Specialty Diagnoses / Procedures Referred By Contac t Referred To Contact XR IMAGING Diagnoses Wrist injuries, right, initial encounter Procedures XR WRIST GENERAL 3V PA/LAT/OBL RIGHT RADEX WRIST COMPLETE MINIMUM 3 VIEWS Abe Calzada APRN.CARDIAC REHABILITATION PROGRAM DIRECTOR [address] [place] [address] Xr Imaging Referral ID Status Reason Start Date Expiration Date V isits Requested Visits Authorized [id number] Closed Auto-Generate d Referral 06/07/2022 07/07/2023 1 1 Specialty Diagnoses / Procedures Referred By Contac t Referred To Contact MR IMAGING Diagnoses Disorder of bone Procedures MRI WRIST WO IVCON RT MRI ANY JT UPPER EXTREMITY W/O CONTRAST ELFEGOL Jose Bryant MD [address] [place] [address] Mr Imaging Referral ID Status Reason Start Date Expiration Date Visits Requested Visits Authorized [id number] Pending Review Auto-Generat ed Referral 08/14/2023 1 1 Specialty Diagnoses / Procedures Referred By Vicente t Referred To Contact Diagnoses Family history of malignant neoplasm of breast Procedures CONSULT TO [facility] CANCER GENETIC COUNSELING MEDICAL GENETICS COUNSELING EACH 30 MINUTES Janine Tavarez MD [address] [place] [address] [facility] Medicine [address] [address] Referral ID Status Reason Start Date Expiration Date Visits Requested Visits Authorized [id number] Authorized PCP Requested Referral Auto-Generate d Referral 10/13/2022 10/13/2023 1 1 Specialty Diagnoses / Procedures Referred By Vicente moran Referred To Contact [facility] Diagnoses Pelvic pain in female Levator spasm Procedures CONSULT TO PHYSICAL THERAPY PHYSICAL THERAPY EVALUATION HIGH COMPLEX 45 MINS Janine Tavarez MD [address] [place] [address] [facility] [address] [address] Referral ID Status Reason Start Date Expiration Date Visits Requested Visits Authorized [id number] Pending Review Auto-Generat ed Referral 10/13/2022 10/13/2023 1 1 Chief Complaint and Reason for Visit Chief Complaint HIVES ABD Chief Complaint ABD VAGINAL PAIN Chief Complaint general illness Chief Complaint general illness GI BLEED Chief Complaint GI BLEED SOB Chief Complaint SOB Chief Complaint SOB SOB Chief Complaint SOB FALL Chief Complaint FALL headache, neck pain Chief Complaint FALL headache, neck pain FINGER/WOUND Chief Complaint headache, neck pain FINGER/WOUND HEEL PAIN Chief Complaint Admit Date fall September 28, 2024 1 2:10pm RSV + October 12, 2024 5 :09pm HYPOXIA, VIRAL SYNDROME October 24 8:10pm HYPOXIA, VIRAL SYNDROME October 25 1:06pm HYPOXIA, VIRAL SYNDROME October 26 1:28pm flank January 11, 2025 5:0 7pm Reason for Visit Admit Date Syncope October 24, 2024 8 :10pm Acute bronchiolitis due to respiratory s yncytial virus October 24, 2024 8:10pm Chief Complaint Admit Date HYPOXIA, VIRAL SYNDROME October 24 8:10pm HYPOXIA, VIRAL SYNDROME October 25 1:06pm HYPOXIA, VIRAL SYNDROME October 26 1:28pm flank January 11, 2025 5:0 7pm sob, cough February 12, 2025 3:28p m Health Concerns Infection Onset Date Last Indicated [...] ized section and content) DATE CREATED AUTHOR 03/15/2018 [facility] DATE CREATED AUTHOR AUTHOR'S ORGANIZ ATION 07/06/2018 [facility] ([place]) DATE CREATED AUTHOR AUTHOR'S ORGANIZ ATION 01/01/2019 [facility] DATE CREATED AUTHOR AUTHOR'S ORGANIZ ATION 01/09/2019 [facility] DATE CREATED AUTHOR AUTHOR'S ORGANIZ ATION 01/19/2024 [facility] DATE CREATED AUTHOR AUTHOR'S ORGANIZ ATION 07/13/2024 [facility] DATE CREATED AUTHOR AUTHOR'S ORGANIZ ATION 07/08/2025 [facility] DATE CREATED AUTHOR AUTHOR'S ORGANGIULIANO ATION 07/11/2025 [facility] Source Comments (unrecognize d section and content) In the event this informatio n is protected by the Federal Confidentiality of Alcohol and Drug Abuse Patient Records regulations: The Federal rules restrict any use of the information to criminally investigate or prosecute any alcohol or drug abuse patient.[facility] the event this information is protected by the Federal Confidentiality of Alcohol and Drug Abuse Patient Records regulations: The Federal rules restrict any use of the information to criminally investigate or prosecute any alcohol or drug abuse patient.[facility] HospitalIn the event this information is protected by the Federal Confidentiality of Alcohol and Drug Abuse Patient Records regulations: The Federal rules restrict any use of the information to criminally investigate or prosecute any alcohol or drug abuse patient.[facility] HospitalIn the event this information is protected by the Federal Confidentiality of Alcohol and Drug Abuse Patient Records regulations: The Federal rules restrict any use of the information to criminally investigate or prosecute any alcohol or drug abuse patient.[facility] HospitalIn the event this information is protected by the Federal Confidentiality of Alcohol and Drug Abuse Patient Records regulations: The Federal rules restrict any use of the information to criminally investigate or prosecute any alcohol or drug abuse patient.[facility] HospitalIn the event this information is protected by the Federal Confidentiality of Alcohol and Drug Abuse Patient Records regulations: The Federal rules restrict any use of the information to criminally investigate or prosecute any alcohol or drug abuse patient.[facility] HospitalIn the event this information is protected by the Federal Confidentiality of Alcohol and Drug Abuse Patient Records regulations: The Federal rules restrict any use of the information to criminally investigate or prosecute any alcohol or drug abuse patient.[facility] HospitalIn the event this information is protected by the Federal Confidentiality of Alcohol and Drug Abuse Patient Records regulations: The Federal rules restrict any use of the information to criminally investigate or prosecute any alcohol or drug abuse patient.[facility] HospitalIn the event this information is protected by the Federal Confidentiality of Alcohol and Drug Abuse Patient Records regulations: The Federal rules restrict any use of the information to criminally investigate or prosecute any alcohol or drug abuse patient.[facility] HospitalIn the event this information is protected by the Federal Confidentiality of Alcohol and Drug Abuse Patient Records regulations: The Federal rules restrict any use of the information to criminally investigate or prosecute any alcohol or drug abuse patient.[facility] HospitalIn the event this information is protected by the Federal Confidentiality of Alcohol and Drug Abuse Patient Records regulations: The Federal rules restrict any use of the information to criminally investigate or prosecute any alcohol or drug abuse patient.[facility] HospitalIn the event this information is protected by the Federal Confidentiality of Alcohol and Drug Abuse Patient Records regulations: The Federal rules restrict any use of the information to criminally investigate or prosecute any alcohol or drug abuse patient.[facility] HospitalIn the event this information is protected by the Federal Confidentiality of Alcohol and Drug Abuse Patient Records regulations: The Federal rules restrict any use of the information to criminally investigate or prosecute any alcohol or drug abuse patient.[facility] HospitalIn the event this information is protected by the Federal Confidentiality of Alcohol and Drug Abuse Patient Records regulations: The Federal rules restrict any use of the information to criminally investigate or prosecute any alcohol or drug abuse patient.[facility] HospitalIn the event this information is protected by the Federal Confidentiality of Alcohol and Drug Abuse Patient Records regulations: The Federal rules restrict any use of the information to criminally investigate or prosecute any alcohol or drug abuse patient.[facility] HospitalIn the event this information is protected by the Federal Confidentiality of Alcohol and Drug Abuse Patient Records regulations: The Federal rules restrict any use of the information to criminally investigate or prosecute any alcohol or drug abuse patient.[facility] HospitalIn the event this information is protected by the Federal Confidentiality of Alcohol and Drug Abuse Patient Records regulations: The Federal rules restrict any use of the information to criminally investigate or prosecute any alcohol or drug abuse patient.[facility] HospitalIn the event this information is protected by the Federal Confidentiality of Alcohol and Drug Abuse Patient Records regulations: The Federal rules restrict any use of the information to criminally investigate or prosecute any alcohol or drug abuse patient.[facility] HospitalIn the event this information is protected by the Federal Confidentiality of Alcohol and Drug Abuse Patient Records regulations: The Federal rules restrict any use of the information to criminally investigate or prosecute any alcohol or drug abuse patient.[facility] HospitalIn the event this information is protected by the Federal Confidentiality of Alcohol and Drug Abuse Patient Records regulations: The Federal rules restrict any use of the information to criminally investigate or prosecute any alcohol or drug abuse patient.[facility] HospitalIn the event this information is protected by the Federal Confidentiality of Alcohol and Drug Abuse Patient Records regulations: The Federal rules restrict any use of the information to criminally investigate or prosecute any alcohol or drug abuse patient.[facility] HospitalIn the event this information is protected by the Federal Confidentiality of Alcohol and Drug Abuse Patient Records regulations: The Federal rules restrict any use of the information to criminally investigate or prosecute any alcohol or drug abuse patient.[facility] HospitalIn the event this information is protected by the Federal Confidentiality of Alcohol and Drug Abuse Patient Records regulations: The Federal rules restrict any use of the information to criminally investigate or prosecute any alcohol or drug abuse patient.[facility] HospitalIn the event this information is protected by the Federal Confidentiality of Alcohol and Drug Abuse Patient Records regulations: The Federal rules restrict any use of the information to criminally investigate or prosecute any alcohol or drug abuse patient.[facility] HospitalIn the event this information is protected by the Federal Confidentiality of Alcohol and Drug Abuse Patient Records regulations: The Federal rules restrict any use of the information to criminally investigate or prosecute any alcohol or drug abuse patient.[facility] HospitalIn the event this information is protected by the Federal Confidentiality of Alcohol and Drug Abuse Patient Records regulations: The Federal rules restrict any use of the information to criminally investigate or prosecute any alcohol or drug abuse patient.[facility] HospitalIn the event this information is protected by the Federal Confidentiality of Alcohol and Drug Abuse Patient Records regulations: The Federal rules restrict any use of the information to criminally investigate or prosecute any alcohol or drug abuse patient.[facility] HospitalIn the event this information is protected by the Federal Confidentiality of Alcohol and Drug Abuse Patient Records regulations: The Federal rules restrict any use of the information to criminally investigate or prosecute any alcohol or drug abuse patient.[facility] HospitalIn the event this information is protected by the Federal Confidentiality of Alcohol and Drug Abuse Patient Records regulations: The Federal rules restrict any use of the information to criminally investigate or prosecute any alcohol or drug abuse patient.[facility] HospitalIn the event this information is protected by the Federal Confidentiality of Alcohol and Drug Abuse Patient Records regulations: The Federal rules restrict any use of the information to criminally investigate or prosecute any alcohol or drug abuse patient.[facility] HospitalIn the event this information is protected by the Federal Confidentiality of Alcohol and Drug Abuse Patient Records regulations: The Federal rules restrict any use of the information to criminally investigate or prosecute any alcohol or drug abuse patient.[facility] HospitalIn the event this information is protected by the Federal Confidentiality of Alcohol and Drug Abuse Patient Records regulations: The Federal rules restrict any use of the information to criminally investigate or prosecute any alcohol or drug abuse patient.[facility] HospitalIn the event this information is protected by the Federal Confidentiality of Alcohol and Drug Abuse Patient Records regulations: The Federal rules restrict any use of the information to criminally investigate or prosecute any alcohol or drug abuse patient.[facility] HospitalIn the event this information is protected by the Federal Confidentiality of Alcohol and Drug Abuse Patient Records regulations: The Federal rules restrict any use of the information to criminally investigate or prosecute any alcohol or drug abuse patient.[facility] HospitalIn the event this information is protected by the Federal Confidentiality of Alcohol and Drug Abuse Patient Records regulations: The Federal rules restrict any use of the information to criminally investigate or prosecute any alcohol or drug abuse patient.[facility] HospitalIn the event this information is protected by the Federal Confidentiality of Alcohol and Drug Abuse Patient Records regulations: The Federal rules restrict any use of the information to criminally investigate or prosecute any alcohol or drug abuse patient.[facility] HospitalIn the event this information is protected by the Federal Confidentiality of Alcohol and Drug Abuse Patient Records regulations: The Federal rules restrict any use of the information to criminally investigate or prosecute any alcohol or drug abuse patient.[facility] HospitalIn the event this information is protected by the Federal Confidentiality of Alcohol and Drug Abuse Patient Records regulations: The Federal rules restrict any use of the information to criminally investigate or prosecute any alcohol or drug abuse patient.[facility] HospitalIn the event this information is protected by the Federal Confidentiality of Alcohol and Drug Abuse Patient Records regulations: The Federal rules restrict any use of the information to criminally investigate or prosecute any alcohol or drug abuse patient.[facility] HospitalIn the event this information is protected by the Federal Confidentiality of Alcohol and Drug Abuse Patient Records regulations: The Federal rules restrict any use of the information to criminally investigate or prosecute any alcohol or drug abuse patient.[facility] HospitalIn the event this information is protected by the Federal Confidentiality of Alcohol and Drug Abuse Patient Records regulations: The Federal rules restrict any use of the information to criminally investigate or prosecute any alcohol or drug abuse patient.[facility] HospitalIn the event this information is protected by the Federal Confidentiality of Alcohol and Drug Abuse Patient Records regulations: The Federal rules restrict any use of the information to criminally investigate or prosecute any alcohol or drug abuse patient.[facility] HospitalIn the event this information is protected by the Federal Confidentiality of Alcohol and Drug Abuse Patient Records regulations: The Federal rules restrict any use of the information to criminally investigate or prosecute any alcohol or drug abuse patient.[facility] HospitalIn the event this information is protected by the Federal Confidentiality of Alcohol and Drug Abuse Patient Records regulations: The Federal rules restrict any use of the information to criminally investigate or prosecute any alcohol or drug abuse patient.[facility] HospitalIn the event this information is protected by the Federal Confidentiality of Alcohol and Drug Abuse Patient Records regulations: The Federal rules restrict any use of the information to criminally investigate or prosecute any alcohol or drug abuse patient.[facility] HospitalIn the event this information is protected by the Federal Confidentiality of Alcohol and Drug Abuse Patient Records regulations: The Federal rules restrict any use of the information to criminally investigate or prosecute any alcohol or drug abuse patient.[facility] HospitalIn the event this information is protected by the Federal Confidentiality of Alcohol and Drug Abuse Patient Records regulations: The Federal rules restrict any use of the information to criminally investigate or prosecute any alcohol or drug abuse patient.[facility] HospitalIn the event this information is protected by the Federal Confidentiality of Alcohol and Drug Abuse Patient Records regulations: The Federal rules restrict any use of the information to criminally investigate or prosecute any alcohol or drug abuse patient.[facility] HospitalIn the event this information is protected by the Federal Confidentiality of Alcohol and Drug Abuse Patient Records regulations: The Federal rules restrict any use of the information to criminally investigate or prosecute any alcohol or drug abuse patient.[facility] HospitalIn the event this information is protected by the Federal Confidentiality of Alcohol and Drug Abuse Patient Records regulations: The Federal rules restrict any use of the information to criminally investigate or prosecute any alcohol or drug abuse patient.[facility] HospitalIn the event this information is protected by the Federal Confidentiality of Alcohol and Drug Abuse Patient Records regulations: The Federal rules restrict any use of the information to criminally investigate or prosecute any alcohol or drug abuse patient.[facility] HospitalIn the event this information is protected by the Federal Confidentiality of Alcohol and Drug Abuse Patient Records regulations: The Federal rules restrict any use of the information to criminally investigate or prosecute any alcohol or drug abuse patient.[facility] HospitalIn the event this information is protected by the Federal Confidentiality of Alcohol and Drug Abuse Patient Records regulations: The Federal rules restrict any use of the information to criminally investigate or prosecute any alcohol or drug abuse patient.[facility] HospitalIn the event this information is protected by the Federal Confidentiality of Alcohol and Drug Abuse Patient Records regulations: The Federal rules restrict any use of the information to criminally investigate or prosecute any alcohol or drug abuse patient.[facility] HospitalIn the event this information is protected by the Federal Confidentiality of Alcohol and Drug Abuse Patient Records regulations: The Federal rules restrict any use of the information to criminally investigate or prosecute any alcohol or drug abuse patient.[facility] HospitalIn the event this information is protected by the Federal Confidentiality of Alcohol and Drug Abuse Patient Records regulations: The Federal rules restrict any use of the information to criminally investigate or prosecute any alcohol or drug abuse patient.[facility] HospitalIn the event this information is protected by the Federal Confidentiality of Alcohol and Drug Abuse Patient Records regulations: The Federal rules restrict any use of the information to criminally investigate or prosecute any alcohol or drug abuse patient.[facility] HospitalIn the event this information is protected by the Federal Confidentiality of Alcohol and Drug Abuse Patient Records regulations: The Federal rules restrict any use of the information to criminally investigate or prosecute any alcohol or drug abuse patient.[facility] HospitalIn the event this information is protected by the Federal Confidentiality of Alcohol and Drug Abuse Patient Records regulations: The Federal rules restrict any use of the information to criminally investigate or prosecute any alcohol or drug abuse patient.[facility] HospitalIn the event this information is protected by the Federal Confidentiality of Alcohol and Drug Abuse Patient Records regulations: The Federal rules restrict any use of the information to criminally investigate or prosecute any alcohol or drug abuse patient.[facility] HospitalIn the event this information is protected by the Federal Confidentiality of Alcohol and Drug Abuse Patient Records regulations: The Federal rules restrict any use of the information to criminally investigate or prosecute any alcohol or drug abuse patient.[facility] HospitalIn the event this information is protected by the Federal Confidentiality of Alcohol and Drug Abuse Patient Records regulations: The Federal rules restrict any use of the information to criminally investigate or prosecute any alcohol or drug abuse patient.[facility] HospitalIn the event this information is protected by the Federal Confidentiality of Alcohol and Drug Abuse Patient Records regulations: The Federal rules restrict any use of the information to criminally investigate or prosecute any alcohol or drug abuse patient.[facility] HospitalIn the event this information is protected by the Federal Confidentiality of Alcohol and Drug Abuse Patient Records regulations: The Federal rules restrict any use of the information to criminally investigate or prosecute any alcohol or drug abuse patient.[facility] HospitalIn the event this information is protected by the Federal Confidentiality of Alcohol and Drug Abuse Patient Records regulations: The Federal rules restrict any use of the information to criminally investigate or prosecute any alcohol or drug abuse patient.[facility] HospitalIn the event this information is protected by the Federal Confidentiality of Alcohol and Drug Abuse Patient Records regulations: The Federal rules restrict any use of the information to criminally investigate or prosecute any alcohol or drug abuse patient.[facility] HospitalIn the event this information is protected by the Federal Confidentiality of Alcohol and Drug Abuse Patient Records regulations: The Federal rules restrict any use of the information to criminally investigate or prosecute any alcohol or drug abuse patient.[facility] HospitalIn the event this information is protected by the Federal Confidentiality of Alcohol and Drug Abuse Patient Records regulations: The Federal rules restrict any use of the information to criminally investigate or prosecute any alcohol or drug abuse patient.[facility] HospitalIn the event this information is protected by the Federal Confidentiality of Alcohol and Drug Abuse Patient Records regulations: The Federal rules restrict any use of the information to criminally investigate or prosecute any alcohol or drug abuse patient.[facility] HospitalIn the event this information is protected by the Federal Confidentiality of Alcohol and Drug Abuse Patient Records regulations: The Federal rules restrict any use of the information to criminally investigate or prosecute any alcohol or drug abuse patient.[facility] HospitalIn the event this information is protected by the Federal Confidentiality of Alcohol and Drug Abuse Patient Records regulations: The Federal rules restrict any use of the information to criminally investigate or prosecute any alcohol or drug abuse patient.[facility] HospitalIn the event this information is protected by the Federal Confidentiality of Alcohol and Drug Abuse Patient Records regulations: The Federal rules restrict any use of the information to criminally investigate or prosecute any alcohol or drug abuse patient.[facility] HospitalIn the event this information is protected by the Federal Confidentiality of Alcohol and Drug Abuse Patient Records regulations: The Federal rules restrict any use of the information to criminally investigate or prosecute any alcohol or drug abuse patient.[facility] HospitalIn the event this information is protected by the Federal Confidentiality of Alcohol and Drug Abuse Patient Records regulations: The Federal rules restrict any use of the information to criminally investigate or prosecute any alcohol or drug abuse patient.[facility] HospitalIn the event this information is protected by the Federal Confidentiality of Alcohol and Drug Abuse Patient Records regulations: The Federal rules restrict any use of the information to criminally investigate or prosecute any alcohol or drug abuse patient.[facility] HospitalIn the event this information is protected by the Federal Confidentiality of Alcohol and Drug Abuse Patient Records regulations: The Federal rules restrict any use of the information to criminally investigate or prosecute any alcohol or drug abuse patient.[facility] HospitalIn the event this information is protected by the Federal Confidentiality of Alcohol and Drug Abuse Patient Records regulations: The Federal rules restrict any use of the information to criminally investigate or prosecute any alcohol or drug abuse patient.[facility] HospitalIn the event this information is protected by the Federal Confidentiality of Alcohol and Drug Abuse Patient Records regulations: The Federal rules restrict any use of the information to criminally investigate or prosecute any alcohol or drug abuse patient.[facility] HospitalIn the event this information is protected by the Federal Confidentiality of Alcohol and Drug Abuse Patient Records regulations: The Federal rules restrict any use of the information to criminally investigate or prosecute any alcohol or drug abuse patient.[facility] HospitalIn the event this information is protected by the Federal Confidentiality of Alcohol and Drug Abuse Patient Records regulations: The Federal rules restrict any use of the information to criminally investigate or prosecute any alcohol or drug abuse patient.[facility] HospitalIn the event this information is protected by the Federal Confidentiality of Alcohol and Drug Abuse Patient Records regulations: The Federal rules restrict any use of the information to criminally investigate or prosecute any alcohol or drug abuse patient.[facility] HospitalIn the event this information is protected by the Federal Confidentiality of Alcohol and Drug Abuse Patient Records regulations: The Federal rules restrict any use of the information to criminally investigate or prosecute any alcohol or drug abuse patient.[facility] HospitalIn the event this information is protected by the Federal Confidentiality of Alcohol and Drug Abuse Patient Records regulations: The Federal rules restrict any use of the information to criminally investigate or prosecute any alcohol or drug abuse patient.[facility] HospitalIn the event this information is protected by the Federal Confidentiality of Alcohol and Drug Abuse Patient Records regulations: The Federal rules restrict any use of the information to criminally investigate or prosecute any alcohol or drug abuse patient.[facility] HospitalIn the event this information is protected by the Federal Confidentiality of Alcohol and Drug Abuse Patient Records regulations: The Federal rules restrict any use of the information to criminally investigate or prosecute any alcohol or drug abuse patient.[facility] HospitalIn the event this information is protected by the Federal Confidentiality of Alcohol and Drug Abuse Patient Records regulations: The Federal rules restrict any use of the information to criminally investigate or prosecute any alcohol or drug abuse patient.[facility] HospitalIn the event this information is protected by the Federal Confidentiality of Alcohol and Drug Abuse Patient Records regulations: The Federal rules restrict any use of the information to criminally investigate or prosecute any alcohol or drug abuse patient.[facility] HospitalIn the event this information is protected by the Federal Confidentiality of Alcohol and Drug Abuse Patient Records regulations: The Federal rules restrict any use of the information to criminally investigate or prosecute any alcohol or drug abuse patient.[facility] HospitalIn the event this information is protected by the Federal Confidentiality of Alcohol and Drug Abuse Patient Records regulations: The Federal rules restrict any use of the information to criminally investigate or prosecute any alcohol or drug abuse patient.[facility] HospitalIn the event this information is protected by the Federal Confidentiality of Alcohol and Drug Abuse Patient Records regulations: The Federal rules restrict any use of the information to criminally investigate or prosecute any alcohol or drug abuse patient.[facility] HospitalIn the event this information is protected by the Federal Confidentiality of Alcohol and Drug Abuse Patient Records regulations: The Federal rules restrict any use of the information to criminally investigate or prosecute any alcohol or drug abuse patient.[facility] HospitalIn the event this information is protected by the Federal Confidentiality of Alcohol and Drug Abuse Patient Records regulations: The Federal rules restrict any use of the information to criminally investigate or prosecute any alcohol or drug abuse patient.[facility] HospitalIn the event this information is protected by the Federal Confidentiality of Alcohol and Drug Abuse Patient Records regulations: The Federal rules restrict any use of the information to criminally investigate or prosecute any alcohol or drug abuse patient.[facility] HospitalIn the event this information is protected by the Federal Confidentiality of Alcohol and Drug Abuse Patient Records regulations: The Federal rules restrict any use of the information to criminally investigate or prosecute any alcohol or drug abuse patient.[facility] HospitalIn the event this information is protected by the Federal Confidentiality of Alcohol and Drug Abuse Patient Records regulations: The Federal rules restrict any use of the information to criminally investigate or prosecute any alcohol or drug abuse patient.[facility] HospitalIn the event this information is protected by the Federal Confidentiality of Alcohol and Drug Abuse Patient Records regulations: The Federal rules restrict any use of the information to criminally investigate or prosecute any alcohol or drug abuse patient.[facility] HospitalIn the event this information is protected by the Federal Confidentiality of Alcohol and Drug Abuse Patient Records regulations: The Federal rules restrict any use of the information to criminally investigate or prosecute any alcohol or drug abuse patient.[facility] HospitalIn the event this information is protected by the Federal Confidentiality of Alcohol and Drug Abuse Patient Records regulations: The Federal rules restrict any use of the information to criminally investigate or prosecute any alcohol or drug abuse patient.[facility] HospitalIn the event this information is protected by the Federal Confidentiality of Alcohol and Drug Abuse Patient Records regulations: The Federal rules restrict any use of the information to criminally investigate or prosecute any alcohol or drug abuse patient.[facility] HospitalIn the event this information is protected by the Federal Confidentiality of Alcohol and Drug Abuse Patient Records regulations: The Federal rules restrict any use of the information to criminally investigate or prosecute any alcohol or drug abuse patient.[facility] HospitalIn the event this information is protected by the Federal Confidentiality of Alcohol and Drug Abuse Patient Records regulations: The Federal rules restrict any use of the information to criminally investigate or prosecute any alcohol or drug abuse patient.[facility] HospitalIn the event this information is protected by the Federal Confidentiality of Alcohol and Drug Abuse Patient Records regulations: The Federal rules restrict any use of the information to criminally investigate or prosecute any alcohol or drug abuse patient.[facility] Reason for Visit (unrecogniz ed section and content) Reason Comments Radiology US Specialty Diagnoses / Procedures Referred By Vicente t Referred To Contact US IMAGING Diagnoses Pelvic pain in female Procedures US FEMALE PELVIS TRANSVAG US TRANSVAGINAL Alyssa Cano, DAMARI.CARDIAC REHABILITATION PROGRAM DIRECTOR [address] [place] [address] [place] [address] Referral ID Status Reason Start Date Expiration Date V isits Requested Visits Authorized [id number] Closed Auto-Generate d Referral 08/02/2022 09/01/2023 1 [...] left heel Procedures CONSULT TO PODIATRY OFFICE/OUTPATIENT [facility] 60-74 MINUTES Lia Reyes APRN.CARDIAC REHABILITATION PROGRAM DIRECTOR [address] [place] [address] Referral ID Status Reason Start Date Expiration Date V isits Requested Visits Authorized [id number] Closed PCP Requested Referral 05/05/2022 05/05/2023 1 [...] hemorrhoid Procedures CONSULT TO GENERAL SURGERY OFFICE/OUTPATIENT [facility] 60-74 MINUTES Tootie Mujica APRN.CARDIAC REHABILITATION PROGRAM DIRECTOR [address] [place] [address] Referral ID Status Reason Start Date Expiration Date V isits Requested Visits Authorized [id number] Closed PCP Requested Referral 08/04/2022 08/04/2023 1 [...] 05/22/2023 Specialty Diagnoses / Procedures Referred By Vicente moran Referred To Contact US IMAGING Diagnoses Ovarian cyst, left Procedures US FEMALE PELVIS TRANSVAG US TRANSVAGINAL Alyssa Cano APRN.ANALISA [address] [place] [address] Us Imaging [facility] Referral ID Status Reason Start Date Expiration Date V isits Requested Visits Authorized [id number] Closed Auto-Generate d Referral 08/16/2022 09/15/2023 1 1 Specialty Diagnoses / Procedures Referred By Vicente moran Referred To Contact [facility] IMAGING Diagnoses Disorder of bone Procedures MRI WRIST WO IVCON RT MRI ANY JT UPPER EXTREMITY W/O CONTRAST MATRL Jose Bryant MD [address] [place] [address] Mr Imaging [facility] Referral ID Status Reason Start Date Expiration Date V isits Requested Visits Authorized [id number] Closed Auto-Generate d Referral 07/27/2022 10/25/2022 1 1 Reason Comments outside Imaging Reason Comments Nausea diarrhea x 1 day Reason Comments Anxiety And depression; has gotten worse the last week. Reason Comments Established Patient Follow Up Reason Comments Sore Throat Diarrhea, congestion , bilateral ear issues x 2 days Reason Comments Sore Throat ST x 2 days Reason Comments Follow Up Pain Reason Comments Schedule Surgery Reason Comments Consult Reason Comments Established Patient Pain Reason Onset Date Comments Refill Request 01/22/2024 Reason Onset Date Comments Refill Request 01/29/2024 Reason Comments Post Op Reason Comments Post Op 5 weeks 5 days post op Right elbow unlar nerve decompression and Right CTR Reason Comments Consult Umbilical Hernia Reason Onset Date Comments Refill Request 07/16/2024 Reason Comments Post Op Follow Up Umbilical hernia rep air 07/12/2024. Reason Onset Date Comments Refill Request 08/01/2024 Reason Comments Cough CAPUTO, chest congestion x 3 days Reason Comments Nasal Congestion diarrhea and vomitin g x 1 day Reason Comments Head Congestion Congestion, SOB and wheezy x 1 day Reason Onset Date Comments Refill Request 11/20/2024 Reason Comments Nausea & Vomiting diarrhea x 3 days, s een yesterday given prednisone Reason Comments Short Of Breath Reason Onset Date Comments Results 11/29/2024 Reason Onset Date Comments Refill Request 05/24/2025 Care Teams (unrecognized sec tion and content) Sandblast Or Shotblast Equipment Tender Relationship Specialty Start Date End Date Shaniqua Beckford MD [address] [place] [address] PCP - General Family Practice 01/28/21 Sandblast Or Shotblast Equipment Tender Relationship Specialty Start Date End Date Shaniqua Beckford MD [address] [place] [address] PCP - General Family Practice 01/28/21 Sandblast Or Shotblast Equipment Tender Relationship Specialty Start Date End Date Shaniqua Beckford MD [address] [place] [address] PCP - General Family Practice 01/28/21 Sandblast Or Shotblast Equipment Tender Relationship Specialty Start Date End Date Shaniqua Beckford MD [address] [place] [address] PCP - General Family Practice 01/28/21 Sandblast Or Shotblast Equipment Tender Relationship Specialty Start Date End Date Shaniqua Beckford MD [address] [place] [address] PCP - General Family Practice 01/28/21 Sandblast Or Shotblast Equipment Tender Relationship Specialty Start Date End Date Shaniqua Beckford MD [address] [place] [address] PCP - General Family Practice 01/28/21 Sandblast Or Shotblast Equipment Tender Relationship Specialty Start Date End Date Shaniqua Beckford MD [address] [place] [address] PCP - General Family Practice 01/28/21 Sandblast Or Shotblast Equipment Tender Relationship Specialty Start Date End Date Shaniqua Beckford MD [address] [place] [address] PCP - General Family Practice 01/28/21 Sandblast Or Shotblast Equipment Tender Relationship Specialty Start Date End Date Shaniqua Beckford MD [address] [place] [address] PCP - General Family Practice 01/28/21 Sandblast Or Shotblast Equipment Tender Relationship Specialty Start Date End Date Shaniqua Beckford MD [address] [place] [address] PCP - General Family Practice 01/28/21 Sandblast Or Shotblast Equipment Tender Relationship Specialty Start Date End Date Shaniqua Beckford MD [address] [place] [address] PCP - General Family Practice 01/28/21 Sandblast Or Shotblast Equipment Tender Relationship Specialty Start Date End Date Shaniqua Beckford MD [address] [place] [address] PCP - General Family Practice 01/28/21 Sandblast Or Shotblast Equipment Tender Relationship Specialty Start Date End Date Shaniuqa Beckford MD [address] [place] [address] PCP - General Family Medicine 01/28/21 Sandblast Or Shotblast Equipment Tender Relationship Specialty Start Date End Date Shaniqua Beckford MD [address] [place] [address] PCP - General Family Medicine 01/28/21 Sandblast Or Shotblast Equipment Tender Relationship Specialty Start Date End Date Shaniqua Beckford MD [address] [place] [address] PCP - General Family Medicine 01/28/21 Sandblast Or Shotblast Equipment Tender Relationship Specialty Start Date End Date Shaniqua Beckford MD [address] [place] [address] PCP - General Family Medicine 01/28/21 Sandblast Or Shotblast Equipment Tender Relationship Specialty Start Date End Date Shaniqua Beckford MD [address] [place] [address] PCP - General Family Medicine 01/28/21 Sandblast Or Shotblast Equipment Tender Relationship Specialty Start Date End Date Shaniqua Beckford MD [address] [place] [address] PCP - General Family Medicine 01/28/21 Sandblast Or Shotblast Equipment Tender Relationship Specialty Start Date End Date Shaniqua Beckford MD [address] [place] [address] PCP - General Family Medicine 01/28/21 Sandblast Or Shotblast Equipment Tender Relationship Specialty Start Date End Date Shaniqua Beckford MD [address] [place] [address] PCP - General Family Medicine 01/28/21 Sandblast Or Shotblast Equipment Tender Relationship Specialty Start Date End Date Shaniqua Beckford MD [address] [place] [address] PCP - General Family Medicine 01/28/21 Sandblast Or Shotblast Equipment Tender Relationship Specialty Start Date End Date Shaniqua Beckford MD [address] [place] [address] PCP - General Family Medicine 01/28/21 Sandblast Or Shotblast Equipment Tender Relationship Specialty Start Date End Date Shaniqua Beckford MD [address] [place] [address] PCP - General Family Medicine 01/28/21 Sandblast Or Shotblast Equipment Tender Relationship Specialty Start Date End Date Shaniqua Beckford MD [address] [place] [address] PCP - General Family Medicine 01/28/21 Sandblast Or Shotblast Equipment Tender Relationship Specialty Start Date End Date Shaniqua Beckford MD [address] [place] [address] PCP - General Family Medicine 01/28/21 Team Status: Active Member Role Status Dates No Primary Care Physician Family Provider Active Dr. Ian Mon MD Primary Care Provider Active Team Status: Inactive Member Role Status Dates Dr. Ian Mon MD Primary Care Provider Active Dr. Miguelito Cesar MD Attending Provider, Emergency Provi eddrick Active Team Status: Inactive Member Role Status Dates Dr. Ian Mon MD Primary Care Provider Active Dr. Vinay Villa , DO Emergency Provider Active Sandblast Or Shotblast Equipment Tender Relationship Specialty Start Date End Date Shaniqua Beckford MD [address] [place] [address] PCP - General Family Medicine 01/28/21 Sandblast Or Shotblast Equipment Tender Relationship Specialty Start Date End Date Shaniqua Beckford MD [address] [place] [address] PCP - General Family Medicine 01/28/21 Sandblast Or Shotblast Equipment Tender Relationship Specialty Start Date End Date Shaniqua Beckford MD [address] [place] [address] PCP - General Family Medicine 01/28/21 Sandblast Or Shotblast Equipment Tender Relationship Specialty Start Date End Date Shaniqua Beckford MD [address] [place] [address] PCP - General Family Medicine 01/28/21 Sandblast Or Shotblast Equipment Tender Relationship Specialty Start Date End Date Shaniqua Beckford MD [address] [place] [address] PCP - General Family Medicine 01/28/21 Sandblast Or Shotblast Equipment Tender Relationship Specialty Start Date End Date Shaniqua Beckford MD [address] [place] [address] PCP - General Family Medicine 01/28/21 Sandblast Or Shotblast Equipment Tender Relationship Specialty Start Date End Date Shaniqua Beckford MD [address] [place] [address] PCP - General Family Medicine 01/28/21 Sandblast Or Shotblast Equipment Tender Relationship Specialty Start Date End Date Shaniqua Beckford MD [address] [place] [address] PCP - General Family Medicine 01/28/21 Sandblast Or Shotblast Equipment Tender Relationship Specialty Start Date End Date Shaniqua Beckford MD [address] [place] [address] PCP - General Family Medicine 01/28/21 Sandblast Or Shotblast Equipment Tender Relationship Specialty Start Date End Date Shaniqua Beckford MD [address] [place] [address] PCP - General Family Medicine 01/28/21 Team Status: Inactive Member Role Status Dates Dr. Ian Mon MD Primary Care Provider Active Dr. Vinay Villa DO Attending Provider, Emergency P ricardo Active Team Status: Inactive Member Role Status Dates Dr. Ian Mon MD Primary Care Provider Active Dr. Brady Villarreal DO Emergency Provider Active Sandblast Or Shotblast Equipment Tender Relationship Specialty Start Date End Date Shaniqua Beckford MD [address] [place] [address] PCP - General Family Medicine 01/28/21 Sandblast Or Shotblast Equipment Tender Relationship Specialty Start Date End Date Shaniqua Beckford MD [address] [place] [address] PCP - General Family Medicine 01/28/21 Team Status: Inactive Member Role Status Dates Dr. Ian Mon MD Primary Care Provider Active Dr. Brady Villarreal DO Attending Provider, Emergency Provider Active Team Status: Inactive Member Role Status Dates Dr. Ian Mon MD Primary Care Provider Active Dr. Armen Grace MD Emergency Provider Active Sandblast Or Shotblast Equipment Tender Relationship Specialty Start Date End Date Shaniqua Beckford MD [address] [place] [address] PCP - General Family Medicine 01/28/21 Team Status: Inactive Member Role Status Dates Dr. Ian Mon MD Primary Care Provider Active Dr. Russel Reynolds DO Emergency Provider Active Team Status: Inactive Member Role Status Dates Dr. Ian Mon MD Primary Care Provider Active Dr. Armen Grace MD Attending Provider, Emergency Pro vider Active Team Status: Inactive Member Role Status Dates Dr. Ian Mon MD Primary Care Provider Active Dr. Russel Reynolds DO Attending Provider, Emergency P rovider Active Team Status: Inactive Member Role Status Dates Dr. Ian Mon MD Primary Care Provider Active Dr. Jose Peters MD Emergency Provider Active Sandblast Or Shotblast Equipment Tender Relationship Specialty Start Date End Date Shaniqua Beckford MD [address] [place] [address] PCP - General Family Medicine 01/28/21 Sandblast Or Shotblast Equipment Tender Relationship Specialty Start Date End Date Shaniqua Beckford MD [address] [place] [address] PCP - General Family Medicine 01/28/21 Sandblast Or Shotblast Equipment Tender Relationship Specialty Start Date End Date Shaniqua Beckford MD [address] [place] [address] PCP - General Family Medicine 01/28/21 Team Status: Inactive Member Role Status Dates Dr. Ian Mon MD Primary Care Provider Active Dr. Jose Peters MD Attending Provider, Emergency Provider Active Sandblast Or Shotblast Equipment Tender Relationship Specialty Start Date End Date Shaniqua Beckford MD [address] [place] [address] PCP - General Family Medicine 01/28/21 Sandblast Or Shotblast Equipment Tender Relationship Specialty Start Date End Date Shaniqua Beckford MD [address] [place] [address] PCP - General Family Medicine 01/28/21 Sandblast Or Shotblast Equipment Tender Relationship Specialty Start Date End Date Shaniqua Beckford MD [address] [place] [address] PCP - General Family Medicine 01/28/21 Sandblast Or Shotblast Equipment Tender Relationship Specialty Start Date End Date Shaniqua Beckford MD [address] [place] [address] PCP - General Family Medicine 01/28/21 Sandblast Or Shotblast Equipment Tender Relationship Specialty Start Date End Date Shaniqua Beckford MD [address] [place] [address] PCP - General Family Medicine 01/28/21 Sandblast Or Shotblast Equipment Tender Relationship Specialty Start Date End Date Shaniqua Beckford MD [address] [place] [address] PCP - General Family Medicine 01/28/21 Sandblast Or Shotblast Equipment Tender Relationship Specialty Start Date End Date Shaniqua Beckford MD [address] [place] [address] PCP - General Family Medicine 01/28/21 Sandblast Or Shotblast Equipment Tender Relationship Specialty Start Date End Date Shaniqua Beckford MD [address] [place] [address] PCP - General Family Medicine 01/28/21 Sandblast Or Shotblast Equipment Tender Relationship Specialty Start Date End Date Shaniqua Beckford MD [address] [place] [address] PCP - General Family Medicine 01/28/21 Sandblast Or Shotblast Equipment Tender Relationship Specialty Start Date End Date Shaniqua Beckford MD [address] [place] [address] PCP - General Family Medicine 01/28/21 Sandblast Or Shotblast Equipment Tender Relationship Specialty Start Date End Date Shaniqua Beckford MD [address] [place] [address] PCP - General Family Medicine 01/28/21 Sandblast Or Shotblast Equipment Tender Relationship Specialty Start Date End Date Shaniqua Beckford MD [address] [place] [address] PCP - General Family Medicine 01/28/21 Sandblast Or Shotblast Equipment Tender Relationship Specialty Start Date End Date Shaniqua Beckford MD [address] [place] [address] PCP - General Family Medicine 01/28/21 Sandblast Or Shotblast Equipment Tender Relationship Specialty Start Date End Date Shaniqua Beckford MD [address] [place] [address] PCP - General Family Medicine 01/28/21 Sandblast Or Shotblast Equipment Tender Relationship Specialty Start Date End Date Shaniqua Beckford MD [address] [place] [address] PCP - General Family Medicine 01/28/21 Tootie Mujica APRN.CNP [address] [place] [address] Therapeutic Riding Instructor Family Medicine 08/25/24 Sandblast Or Shotblast Equipment Tender Relationship Specialty Start Date End Date Shaniqua Beckford MD [address] [place] [address] PCP - General Family Medicine 01/28/21 Podlogar, Tootie REAL ESTATE LOAN PROCESSOR.CARDIAC REHABILITATION PROGRAM DIRECTOR [address] [place] [address] Therapeutic Riding Instructor Family Medicine 08/25/24 Sandblast Or Shotblast Equipment Tender Relationship Specialty Start Date End Date Shaniqua Beckford MD [address] [place] [address] PCP - General Family Medicine 01/28/21 Podlogar, Tootie REAL ESTATE LOAN PROCESSOR.CARDIAC REHABILITATION PROGRAM DIRECTOR [address] [place] [address] Therapeutic Riding Instructor Family Medicine 08/25/24 Sandblast Or Shotblast Equipment Tender Relationship Specialty Start Date End Date Shaniqua Beckford MD [address] [place] [address] PCP - General Family Medicine 01/28/21 Podlogar, Tootie, REAL ESTATE LOAN PROCESSOR.CARDIAC REHABILITATION PROGRAM DIRECTOR [address] [place] [address] Therapeutic Riding Instructor Family Medicine 08/25/24 Sandblast Or Shotblast Equipment Tender Relationship Specialty Start Date End Date Shaniqua Beckford MD [address] [place] [address] PCP - General Family Medicine 01/28/21 Podlogar, Tootie, REAL ESTATE LOAN PROCESSOR.CARDIAC REHABILITATION PROGRAM DIRECTOR [address] [place] [address] Therapeutic Riding Instructor Family Medicine 08/25/24 Sandblast Or Shotblast Equipment Tender Relationship Specialty Start Date End Date Shaniqua Beckford MD [address] [place] [address] PCP - General Family Medicine 01/28/21 Podlogar, Tootie, REAL ESTATE LOAN PROCESSOR.CARDIAC REHABILITATION PROGRAM DIRECTOR [address] [place] [address] Therapeutic Riding Instructor Family Medicine 08/25/24 Sandblast Or Shotblast Equipment Tender Relationship Specialty Start Date End Date Shaniqua Beckford MD [address] [place] [address] PCP - General Family Medicine 01/28/21 Podlogar, Tootie, REAL ESTATE LOAN PROCESSOR.CARDIAC REHABILITATION PROGRAM DIRECTOR [address] [place] [address] Therapeutic Riding Instructor [facility] 08/25/24 Sandblast Or Shotblast Equipment Tender Relationship Specialty Start Date End Date Shaniqua Beckford MD [address] [place] [address] PCP - General Family Medicine 01/28/21 Podlogar, Tootie, REAL ESTATE LOAN PROCESSOR.CARDIAC REHABILITATION PROGRAM DIRECTOR [address] [place] [address] Therapeutic [facility] 08/25/24 Sandblast Or Shotblast Equipment Tender Relationship Specialty Start Date End Date Shaniqua Beckford MD [address] [place] [address] PCP - General Family Medicine 01/28/21 Podlogar, Tootie, REAL ESTATE LOAN PROCESSOR.CARDIAC REHABILITATION PROGRAM DIRECTOR [address] [place] [address] Therapeutic [facility]iding [facility] 08/25/24 Sandblast Or Shotblast Equipment Tender Relationship Specialty Start Date End Date Shaniqua Beckford MD [address] [place] [address] PCP - General Family Medicine 01/28/21 PodlogTootie chiang, REAL ESTATE LOAN PROCESSOR.CARDIAC REHABILITATION PROGRAM DIRECTOR [address] [place] [id number] [facility] 08/25/24 Mariama Alicea, REAL ESTATE LOAN PROCESSOR.CARDIAC REHABILITATION PROGRAM DIRECTOR [address] [place], [place] [id number] [facility] 11/30/24 Team Status: Active Member Role Status Dates Dr. Ian Mon MD Primary Care Provider Active Team Status: Inactive Member Role Status Dates Dr. Ian Mon MD Primary Care Provider Active Start: September 28, 2024 End: September 28, 2024 Rufus Miramontes MD Attending Provider Active Star t: September 28, 2024 End: September 28, 2024 Rufus Miramontes MD Emergency Provider Active Star t: September 28, 2024 End: September 28, 2024 Team Status: Inactive Member Role Status Dates Dr. Ian Mon MD Primary Care Provider Active Start: October 12, 2024 End: October 12, 2024 Dr. Jason Chopra DO Attending Provider Active Start: October 12, 2024 End: October 12, 2024 Dr. Jason Chopra DO Emergency Provider Active Start: October 12, 2024 End: October 12, 2024 Team Status: Inactive Member Role Status Dates Dr. Ian Mon MD Primary Care Provider Active Start: October 24, 2024 End: October 26, 2024 Dr. Bo Jordan DO Referring Provider Activ e Start: October 24, 2024 End: October 26, 2024 Dr. Bo Jordan DO Emergency Provider Activ e Start: October 24, 2024 End: October 26, 2024 Dr. Claudette Cooney MD Admit Provider Active St art: October 24, 2024 End: October 26, 2024 Dr. Claudette Cooney MD Other Provider Active St art: October 24, 2024 End: October 26, 2024 Dr. Anayeli Mendoza MD Attending Provider Active Start: October 24, 2024 End: October 26, 2024 Team Status: Active Member Role Status Dates Dr. Ian Mon MD Primary Care Provider Active Start: October 25, 2024 Dr. Bo Jordan DO Emergency Provider Activ e Start: October 25, 2024 Dr. Claudette Cooney MD Admit Provider Active St art: October 25, 2024 Dr. Claudette Cooney MD Other Provider Active St art: October 25, 2024 Dr. Anayeli Mendoza MD Attending Provider Active Start: October 25, 2024 Dr. Anayeli Mendoza MD Other Provider Active St art: October 25, 2024 Team Status: Active Member Role Status Dates Dr. Ian Mon MD Primary Care Provider Active Start: October 26, 2024 Dr. Bo Jordan DO Emergency Provider Activ e Start: October 26, 2024 Dr. Claudette Cooney MD Admit Provider Active St art: October 26, 2024 Dr. Claudette Cooney MD Other Provider Active St art: October 26, 2024 Dr. Anayeli Mendoza MD Attending Provider Active Start: October 26, 2024 Dr. Anayeli Mendoza MD Other Provider Active St art: October 26, 2024 Team Status: Inactive Member Role Status Dates Dr. Ian Mon MD Primary Care Provider Active Start: January 11, 2025 End: January 11, 2025 Rufus Miramontes MD Emergency Provider Active Star t: January 11, 2025 End: January 11, 2025 Sandblast Or Shotblast Equipment Tender Relationship Specialty Start Date End Date Shaniqua Beckford MD [address] [place], [place] [id number] PCP - General Family Medicine 01/28/21 PodlogarTootie, REAL ESTATE LOAN PROCESSOR.CARDIAC REHABILITATION PROGRAM DIRECTOR [address] [place], [place] [id number] [employer] In[employer] Family Medicine 08/25/24 Mariama Alicea APRN.CARDIAC REHABILITATION PROGRAM DIRECTOR [address] [place], [place] [id number] Therapeutic Riding Instructor Family Medicine 11/30/24 12/09/24 Mariama Alicea, DAMARI.CARDIAC REHABILITATION PROGRAM DIRECTOR [address] [place], [place] [id number] Therapeutic Riding Instructor Family Medicine 12/10/24 Team Status: Inactive Member Role Status Dates Dr. Ian Mon MD Primary Care Provider Active Start: January 11, 2025 End: January 11, 2025 Rufus Miramontes MD Attending Provider Active Star t: January 11, 2025 End: January 11, 2025 Rufus Miramontes MD Emergency Provider Active Star t: January 11, 2025 End: January 11, 2025 Team Status: Inactive Member Role Status Dates Dr. Ian Mon MD Primary Care Provider Active Start: February 12, 2025 End: February 12, 2025 Dr. Ry Garcia DO Emergency Provider Active Start: February 12, 2025 End: February 12, 2025 Sandblast Or Shotblast Equipment Tender Relationship Specialty Start Date End Date Shaniqua Beckford MD [address] [place], [place] [id number] PCP - General Family Medicine 01/28/21 PodlogarTootie, REAL ESTATE LOAN PROCESSOR.CARDIAC REHABILITATION PROGRAM DIRECTOR [address] [place], [place] [address] [facility] Family Medicine 08/25/24 Mariama Alicea, REAL ESTATE LOAN PROCESSOR.CARDIAC REHABILITATION PROGRAM DIRECTOR [address] [place], [place] [id number] [facility] Medicine 02/28/25 Sandblast Or Shotblast Equipment Tender Relationship Specialty Start Date End Date Shaniqua Beckford MD [address] [place], [place] [id number] PCP - General Family Medicine 01/28/21 Podlogar, Tootie, REAL ESTATE LOAN PROCESSOR.CARDIAC REHABILITATION PROGRAM DIRECTOR [address] [facility], [place] [id number] [facility] 08/25/24 Mariama Alicea APRN.CARDIAC REHABILITATION PROGRAM DIRECTOR [address] [place], [place] [id number] [facility] 02/28/25 Sandblast Or Shotblast Equipment Tender Relationship Specialty Start Date End Date Shaniqua Beckford MD [address] [place], [place] [id number] PCP - General Family Medicine 01/28/21 PodlogarTootie APRN.CARDIAC REHABILITATION PROGRAM DIRECTOR [address] [place], [place] [id number] [facility] 08/25/24 Mariama Alicea APRN.CARDIAC REHABILITATION PROGRAM DIRECTOR [address] [place], [place] [id number] [facility] 02/28/25 Goals (unrecognized section and content) Goals may be documented in a n alternate sectionGoals may be documented in an alternate sectionGoals may be documented in an alternate sectionGoals may be documented in an alternate sectionGoals may be documented in an alternate sectionGoals may be documented in an alternate sectionGoals may be documented in an alternate sectionGoals may be documented in an alternate sectionGoals may be documented in an alternate sectionGoals may be documented in an alternate sectionGoals may be documented in an alternate section Inactive Administered Medications - up to 3 most recent administrations Administered Medications (un recognized section and content) Medication Order MAR Action Action Date Dose Rate Site BUPivacaine (PF) 0.5 % (5 mg/mL) 1 mL injection 1 mL, Injection - FOR ORTHO USE ONLY, ONCE, 1 dose, Starting on Flori 12/29/23 at 1523, Until Flori 12/29/23 at 1523 Given 12/29/2023 3:23 PM EDT 1 mL Hand, Right triamcinolone acetonide 10 mg injection (KeNALog 10) 10 mg, Injection - FOR ORTHO USE ONLY, ONCE, 1 dose, Starting on Flori 12/29/23 at 1523, Until Flori 12/29/23 at 1523 Given 12/29/2023 3:23 PM EDT 10 mg Hand, Right FOR RECORDS PERTAINING TO PATIENTS WHO ARE [...] BE BASED ON THE PRIMARY CLINICAL RECORDS. [facility]. provides no warranty or guarantee of the accuracy or completeness of information in this document.
[2025-09-12 19:25] LABS: Hematocrit 43.9 % (37-47); Hemoglobin 14.3 g/dL (12.0-15.0); Immature Granulocytes Count 0.030 X10^3/uL (0.0-0.0); Mean Corp Hgb Conc 32.6 g/dL (32-36); Mean Corpuscular Volume 86.6 fL (81-99); Mean Platelet Vol. 10.6 fl (6.2-12.0); NRBC Flagged by Analyzer 0 % (0-5); Platelet Count 194 K/mm3 (150-450); RBC Distribution Width CV 13.0 % (11.6-14.6); RBC Distribution Width SD 41.1 fl (35.1-43.9); Red Blood Count 5.07 M/mm3 (4.2-5.4); White Blood Count 6.7 K/mm3 (4.4-11.0)
--- NOTE | 2025-09-12 19:30 | RAD_ITS ---
PROCEDURE: CHEST PA AND LATERAL 09/12/2025 REASON FOR EXAM: SOB TECHNIQUE: Procedure Code: RADCXR Modality: DX Procedure: CHEST PA AND LATERAL COMPARISON: None FINDINGS: Hardware: None Heart: The heart size is normal. Mediastinum: The mediastinal contour is unremarkable. Lungs: Hypoventilation. The lungs are clear. Bones: The bones are unremarkable. RAD/Chest PA and Lateral IMPRESSION: Hypoventilation without acute cardiopulmonary abnormality. Reading Location: [facility]
[2025-09-12 19:45] LABS: D-Dimer Quantitative (DVT/PE) 0.36 FEU/ug/m (0.27-0.49)
[2025-09-12 19:48] LABS: Anion Gap 11 (7-18); BUN 11 mg/dL (4-19); BUN/Creat Ratio 14.8 RATIO (10-20); Calcium,Total 8.8 mg/dL (7.6-11.0); Carbon Dioxide 26.9 mmol/L (20.0-29.0); Chloride 102 mmol/L (96-106); Estimated Creatinine Clearance 89.48 ml/min (50-250); Glucose 90 mg/dL (70-99); Potassium 3.6 mmol/L (3.5-5.1)
[2025-09-12 20:52] LABS: Troponin T High Sensitivity < 6 ng/L (<=14)
[2025-09-12 22:12] VITALS: BP 113/76; PULSE 92; RESP 17; O2SAT 98
[2025-09-12 22:43] VITALS: BP 113/76; PULSE 92; RESP 17; TEMP 36.8; O2SAT 98
== END 2025-09-12 22:43 | disposition home or self-care (01) ==
LOC: ED 19:20
PROVIDERS: Emergency Provider Emergency Medicine; PCP Family Medicine; Visit Provider Emergency Medicine
DX: U07.1 COVID-19 (principal); F17.210 Nicotine dependence, cigarettes, uncomplicated; E86.0 Dehydration; H53.8 Other visual disturbances; I95.1 Orthostatic hypotension; Z90.710 Acquired absence of both cervix and uterus; Z87.440 Personal history of urinary (tract) infections; Z87.442 Personal history of urinary calculi
CPT/HCPCS: 71046; 80048; 84484; 85025; 85379; 87631; 93005; 94640; 96360; 99285; A4216